=== PATIENT | female | born 1955 | race American Indian/Alaskan Native ===

== ENCOUNTER 2019-05-12 05:51 | Day surgery (SDC) | payer MEDICARE ==
[2019-05-12] MEDS ORDERED: ceFAZolin/Water 2 GM/20 ML 2 GM/20 ML SYRINGE IV NR (06:00)
[2019-05-12] MEDS ORDERED: BACTERIOSTATIC SODIUM CHLORIDE 0.9% 30 ML VIAL INFILTRATI ONE (06:26)
[2019-05-12 07:12] LABS: Basophils # (Auto) 0.1 K/mm3 (0.0-0.1); Basophils % (Auto) 0.8 % (0.0-1.8); Eosinophils # (Auto) 0.3 K/mm3 (0.0-0.4); Eosinophils % (Auto) 4.2 % (0.0-4.3); Hematocrit 28.4 % (30.3-42.9); Hemoglobin 9.1 gm/dl (10.1-14.3); Lymphocytes # (Auto) 1.7 K/mm3 (1.2-5.4); Lymphocytes % (Auto) 22.8 % (13.4-35.0); Mean Corpuscular HGB Conc 32 % (30-34); Mean Corpuscular Volume 83 fl (79-97); Monocytes # (Auto) 0.5 K/mm3 (0.0-0.8); Monocytes % (Auto) 7.5 % (0.0-7.3); Platelet Count 291 K/mm3 (140-440); Red Blood Count 3.42 M/mm3 (3.65-5.03); Red Cell Distribution Width 14.2 % (13.2-15.2)
[2019-05-12] MEDS ORDERED: MIDAZOLAM 2 MG/2 ML INJ IV NR (07:17)
[2019-05-12] MEDS ORDERED: FAMOTIDINE 20 MG/2 ML INJ IV NR (07:18)
[2019-05-12 07:20] LABS: Calcium 9.6 mg/dL (8.4-10.2)
[2019-05-12] MEDS ORDERED: INSULIN REGULAR, HUMAN 100 UNITS/1 ML IV SCH (07:21)
--- NOTE | 2019-05-12 07:28 | Anesthesia Consultation ---
Anesthesia Consult and Med Hx Date of service: 05/12/19 - Airway Anesthetic Teeth Evaluation: Poor (multiple missing teeth, careous #4) ROM Head & Neck: Adequate Mental/Hyoid Distance: Adequate Mallampati Class: Class II Intubation Access Assessment: Probably Good - Pre-Operative Health Status ASA Pre-Surgery Classification: ASA3 Proposed Anesthetic Plan: General - Cardiovascular System Hx Hypertension: Yes - Central Nervous System Hx Neuromuscular Disorder: Yes (peripheral neuropathy) Hx Back Pain: Yes Hx Psychiatric Problems: No - Endocrine Hx Renal Disease: Yes Hx End Stage Renal Disease: Yes Hx Insulin Dependent Diabetes: Yes - Hematic Hx Anemia: Yes - Other Systems Hx Cancer: No Hx Obesity: Yes (BMI 30.5)
[2019-05-12] MEDS ORDERED: SODIUM CHLORIDE 0.9% 1000 ML 1,000 ML IV SCH (07:30)
--- NOTE | 2019-05-12 07:30 | Anesthesia Day of Surgery ---
Anesthesia Day of Surgery - Day of Surgery Patient Examined: Yes Patient H&P Reviewed: Yes Patient is NPO: Yes Beta Blockers: Yes
[2019-05-12] MEDS ORDERED: fentaNYL 100 MCG/2 ML INJ ONE (07:40)
[2019-05-12] MEDS ORDERED: SODIUM CHLORIDE 0.9% 200 ML ONE (07:40)
[2019-05-12] MEDS ORDERED: LIDOCAINE MPF (2%) 20 MG/1 ML VIAL 5 ML ONE (07:40)
[2019-05-12] MEDS ORDERED: HEPARIN 10,000 UNITS/10 ML VIAL ONE (07:40)
[2019-05-12] MEDS ORDERED: MIDAZOLAM 2 MG/2 ML INJ ONE (07:40)
[2019-05-12] MEDS ORDERED: propofoL 200 MG/20 ML VIAL IV ONE (07:41)
[2019-05-12] MEDS ORDERED: GELATIN SPONGE SIZE 100 TP ONE ×2 (07:41→08:42)
[2019-05-12] MEDS ORDERED: THROMBIN (RECOMBINANT) 5,000 UNIT VIAL TP ONE ×2 (07:41→08:41)
[2019-05-12] MEDS ORDERED: PROTAMINE SULFATE 50 MG/5 ML INJ ONE (07:41)
[2019-05-12] MEDS ORDERED: ePHEDrine SULFATE 50 MG/1 ML INJ ONE (08:19)
[2019-05-12] MEDS ORDERED: PHENYLEPHRINE/NS 1,000 MCG/10 ML SYRINGE (OR USE) IV ONE (08:24)
[2019-05-12] MEDS ORDERED: HEPARIN 10,000 UNITS/10 ML VIAL IR ONE (08:40)
[2019-05-12] MEDS ORDERED: SODIUM CHLORIDE 0.9% 100 ML IVPB IV ONE (08:40)
[2019-05-12] MEDS ORDERED: SODIUM CHLORIDE 0.9% IRR 1,500 ML BOTTLE IR ONE (08:42)
[2019-05-12] MEDS ORDERED: PROTAMINE SULFATE 50 MG/5 ML INJ IV ONE (09:40)
[2019-05-12] MEDS ORDERED: ONDANSETRON 4 MG/2 ML INJ ONE (10:05)
[2019-05-12] MEDS ORDERED: oxyCODONE /ACETAMINOPHEN 5-325MG TAB PO PRN (10:06)
--- NOTE | 2019-05-12 10:06 | Post Operative Note ---
Pre-op diagnosis: Stage V Chronic Kidney Disease Post-op diagnosis: same Procedure: Left Arm AV Graft Insertion Anesthesia: GETA Surgeon: JAMEL HAIR Estimated blood loss: other (25ml) Pathology: none Condition: stable Disposition: PACU
--- NOTE | 2019-05-12 10:09 | Short Stay Summary ---
Short Stay Documentation Date of service: 05/12/19 - History H&P: obtained from office Past Medical History: diabetes, ESRD, hyperthyroidism - Allergies and Medications Current Medications: Allergies No Known Allergies Allergy (Unverified 05/10/19 15:33) Home Medications Medication Instructions Recorded Confirmed Last Taken Type Aspirin [Adult Aspirin] 81 mg PO DAILY 05/10/19 05/10/19 05/11/19 History Cyanocobalamin (Vitamin B-12) 2,500 mcg PO DAILY 05/10/19 05/10/19 05/11/19 History [Vitamin B12] Ferrous Sulfate [Feosol 325 MG tab] 325 mg PO DAILY 05/10/19 05/10/19 05/11/19 History Gabapentin 100 mg PO TID 05/10/19 05/10/19 05/11/19 History Insulin Aspart (Nf) [NovoLOG 100 10 unit SQ TIDAC 05/10/19 05/10/19 05/11/19 History UNITS/ML VIAL] Insulin Glargine [Lantus VIAL] 36 unit SQ QAM 05/10/19 05/10/19 05/11/19 History Tizanidine HCl [Tizanidine 2mg tab] 2 mg PO DAILY 05/10/19 05/10/19 05/11/19 History Torsemide [Demadex] 20 mg PO BID 05/10/19 05/10/19 05/11/19 History amLODIPine 10 mg PO BID 05/10/19 05/10/19 05/12/19 04:30 History calcitrioL [Rocaltrol] 0.5 mcg PO DAILY 05/10/19 05/10/19 05/11/19 History carvediloL [Coreg] 12.5 mg PO BID 05/10/19 05/10/19 05/12/19 04:30 History Active Medications Famotidine (Pepcid) 20 mg IV PREOP NR Stop: 05/12/19 16:00 Last Admin: 05/12/19 07:36 Dose: 20 mg Documented by: Cefazolin Sodium (Ancef/Sterile Water 2 Gm/20 Ml) 2 gm in 20 mls @ 80 mls/hr IV PREOP NR; Protocol Stop: 05/12/19 23:59 Sodium Chloride (Nacl 0.9% 1000 Ml) 1,000 mls @ 42 mls/hr IV DIRECT LUIS M Last Admin: 05/12/19 07:30 Dose: 42 mls/hr Documented by: Insulin Human Regular (Humulin R) 4 units IV ONCE LUIS M Stop: 05/12/19 23:59 Last Admin: 05/12/19 07:30 Dose: 4 units Documented by: Midazolam HCl (Versed) 2 mg IV ONCE NR Stop: 05/12/19 16:00 Last Admin: 05/12/19 07:32 Dose: 2 mg Documented by: - Physical exam General appearance: no acute distress Lungs: Normal air movement Heart: Regular rate Extremities: no ischemia - Hospital course Hospital course: the patient was taken to the operating room and had a left arm av graft insertion performed. please refer to the operative note concerning details of the procedure. the patient tolerated the procedure well and was discharged home in stable condition. - Disposition Condition at discharge: Stable Disposition: DC-01 TO HOME OR SELFCARE - Discharge Diagnoses (1) CKD (chronic kidney disease) stage 5, GFR less than 15 ml/min Status: Acute Short Stay Discharge Plan Follow up with: GABY WILSON [Primary Care Provider] - 7 Days
[2019-05-12] MEDS ORDERED: fentaNYL 100 MCG/2 ML INJ IV PRN (10:18)
--- NOTE | 2019-05-12 10:29 | Operative Report ---
STAFF SURGEON: Dr. Wesly Walsh. PREOPERATIVE DIAGNOSIS: Stage V chronic kidney disease. POSTOPERATIVE DIAGNOSIS: Stage V chronic kidney disease. PROCEDURE PERFORMED: Left arm AV graft insertion. COMPLICATIONS: None. ESTIMATED BLOOD LOSS: 25 mL. ANESTHESIA: General. INDICATIONS FOR PROCEDURE: This is a 63-year-old female with worsening renal function and impending need for dialysis and therefore, a vascular consultation was obtained for access creation. The patient was explained the risks, benefits and alternatives to the procedure, expressed understanding and wished to proceed. DESCRIPTION OF PROCEDURE: After appropriate consent was obtained, the patient was brought back to the operating room and placed on the operating table in supine position with the left arm extended. The patient was given appropriate medication for general anesthesia, had LMA placed without difficulty. The left arm was prepped and draped in sterile fashion with ChloraPrep. Appropriate preoperative antibiotics were administered. Appropriate timeout was performed indicating correct patient, procedure, and site of procedure. We then began the operation by making a longitudinal incision in the antecubital fossa. This was carried through the subcutaneous tissue with a combination of blunt dissection and electrocautery. Dissection was continued through the bicipital aponeurosis, which allowed us to expose the brachial artery, which was found to be suitable in size for arterial inflow and this was mobilized for appropriate distance both proximally and distally. We then proceeded to make a transverse incision near the axilla. This was carried through subcutaneous tissue with a combination of blunt dissection and electrocautery. Dissection was continued through the fascia overlying the axillary neurovascular bundle. Axillary vein was identified and found to be suitable in size for venous outflow. We then proceeded to create a subcutaneous tunnel between the 2 incision sites bringing through a 4-7 mm Propaten graft. The patient was given 5000 units of unfractionated heparin. After appropriate timeout elapsed, the graft was appropriately spatulated. Vascular clamps were placed on the brachial artery, both proximally and distally. Longitudinal arteriotomy was made, which was extended with Tyson scissors. Then, an end-to-side anastomosis was performed with a running 6-0 Prolene suture. Once complete, flow was established through the graft with a nice pulsatile flow. The graft was cut to an appropriate length. Vascular clamps were then placed on the axillary vein, both proximally and distally. The graft was spatulated. A longitudinal venotomy was performed with a #11 blade and extended with Tyson scissors and then end-to-side anastomosis was performed with a running 5-0 Prolene suture. Once complete, flow was reestablished through the graft with a nice palpable thrill. We then looked to obtain hemostasis along the suture line, which was obtained with hemostatic agents. Once we were satisfied with hemostasis, we then proceeded to close both wounds with a deep subcutaneous layer with interrupted 3-0 PDS and the skin was approximated with ami. Appropriate dressing was placed. The patient tolerated the procedure well, emerged from the general anesthesia, had the LMA removed, and was sent to recovery in stable condition. All the sponges, instrument and needle counts were correct at completion of the operation. JOB# [id number] RABIA/CESAR
[2019-05-12 11:14] VITALS: BP 119/60
[2019-05-12] MEDS ORDERED: oxyCODONE /ACETAMINOPHEN 5-325MG TAB PO ONE (11:31)
--- NOTE | 2019-05-12 18:13 | Post Anesthesia Evaluation ---
- Post Anesthesia Evaluation Patient Participated: Yes Airway Patent: Yes Stable Respiratory Function: Yes Nausea/Vomiting: No Temp > 96.8F: Yes Pain Manageable: Yes Adequeate Hydration: Yes Anesthesia Complications: No Block Receding Appropriately: Not Applicable Patient on Ventilator: No
== END 2019-05-12 11:51 | disposition home or self-care (01) ==
LOC: OR 05:51 → EDBD 08:00 → OR 11:51
PROVIDERS: ATTEND Surgery Vascular Surgery
DX: I13.2 Hypertensive heart and chronic kidney disease with heart failure and with stage 5 chronic kidney disease, or end stage renal disease (principal); E11.22 Type 2 diabetes mellitus with diabetic chronic kidney disease; N18.6 End stage renal disease; I50.9 Heart failure, unspecified; Z98.41 Cataract extraction status, right eye; Z98.42 Cataract extraction status, left eye; K21.9 Gastro-esophageal reflux disease without esophagitis; E66.9 Obesity, unspecified; Z99.2 Dependence on renal dialysis; Z68.30 Body mass index [BMI] 30.0-30.9, adult; D64.9 Anemia, unspecified; Z98.890 Other specified postprocedural states; Z79.82 Long term (current) use of aspirin; Z79.4 Long term (current) use of insulin; Z79.899 Other long term (current) drug therapy
CPT/HCPCS: 36415; 36830; 80048; 82962; 85025; A4649; C1768; J0690; J1644; J2250; J2370; J2405; J2704; J2720; J3010; J7030; J1815

== ENCOUNTER 2019-05-15 07:23 | Inpatient (IN) | payer MEDICARE ==
[2019-05-15] MEDS ORDERED: VANCOMYCIN 1,750 MG in SODIUM CHLORIDE 0.9% 500 ML 500 ML IV ONE (07:53)
--- NOTE | 2019-05-15 07:53 | Emergency Department Report ---
ED Fever HPI - General Stated Complaint: FEVER/DRAINAGE Time Seen by Provider: 05/15/19 07:48 Source: patient Exam Limitations: no limitations - History of Present Illness Initial Comments: cc: fever HPI Mrs. Davis is a 63 yo female with hx of ESRD DM hyperthyroidism CHF who presents with fever malaise and drainage from surgical wound. She is 3 days s/p surgery on Wednesday. She had left arm AV graft inserted by Dr. Walsh. She now presents with home fever 102 F. She feels just unwell. Arrives per EMS. Denies fever cough. Denies travel. Spoke to daughter per phone , Yesenia. Patient was responsive, talking to paramedics. Daughter notices brown drainage from wound. Yesenia. Patient has been taking percocet but did not take any medication today. She is followed by [facility]. Also spoke with son Shahid Davis . He stated that his mother has had declining health over the last 2 years. She just hasn't been herself. Dr. Emily Rausch bottle capper I spoke with [facility] PCP Dr. Schroeder Timing/Duration: just prior to arrival Fever Severity/Quality: greater than 102 F Associated Symptoms: weakness, other (Generalized malaise) ED Review of Systems ROS: Stated complaint: FEVER/DRAINAGE Other details as noted in HPI Comment: All other systems reviewed and negative Constitutional: fever, malaise Respiratory: denies: cough, shortness of breath Cardiovascular: denies: chest pain Gastrointestinal: denies: abdominal pain, nausea, vomiting ED Past Medical Hx - Past Medical History Previous Medical History?: Yes Hx Hypertension: Yes Hx Congestive Heart Failure: Yes Hx Diabetes: Yes Hx GERD: Yes Hx Renal Disease: Yes - Social History Smoking Status: Never Smoker - Medications Home Medications: Home Medications Medication Instructions Recorded Confirmed Last Taken Type Aspirin [Adult Aspirin] 81 mg PO DAILY 05/10/19 05/10/19 05/11/19 History Cyanocobalamin (Vitamin B-12) 2,500 mcg PO DAILY 05/10/19 05/10/19 05/11/19 History [Vitamin B12] Ferrous Sulfate [Feosol 325 MG tab] 325 mg PO DAILY 05/10/19 05/10/19 05/11/19 H istory Gabapentin 100 mg PO TID 05/10/19 05/10/1905/10/20 History Insulin Aspart (Nf) [NovoLOG 100 10 unit SQ TIDAC 05/10/19 05/10/19 05/11/19 History UNITS/ML VIAL] Insulin Glargine [Lantus VIAL] 36 unit SQ QAM 05/10/19 05/10/19 05/11/19 History Tizanidine HCl [Tizanidine 2mg tab] 2 mg PO DAILY 05/10/19 05/10/19 05/11/19 History Torsemide [Demadex] 20 mg PO BID 05/10/19 05/10/19 05/11/19 History amLODIPine 10 mg PO BID 05/10/19 05/10/19 05/12/19 04:30 History calcitrioL [Rocaltrol] 0.5 mcg PO DAILY 05/10/19 05/10/19 05/11/19 History carvediloL [Coreg] 12.5 mg PO BID 05/10/19 05/10/19 05/12/19 04:30 History oxyCODONE /ACETAMINOPHEN [Percocet 1 tab PO Q6HR PRN #24 tablet 05/12/19 Unknown Rx 5/325 mg] ED Physical Exam - General General appearance: alert, in no apparent distress, other (Appears uncomfortable) - Head Head exam: Present: atraumatic, normocephalic - Eye Eye exam: Present: normal appearance - ENT ENT exam: Present: mucous membranes moist - Neck Neck exam: Present: normal inspection, full ROM - Respiratory Respiratory exam: Present: normal lung sounds bilaterally. Absent: respiratory distress, wheezes, rales, rhonchi - Cardiovascular Cardiovascular Exam: Present: regular rate, normal rhythm, normal heart sounds. Absent: systolic murmur, diastolic murmur, rubs, gallop - GI/Abdominal GI/Abdominal exam: Present: soft, normal bowel sounds. Absent: distended, tenderness, guarding, rebound - Extremities Exam Extremities exam: Present: other (Left upper extremity minimal edema no erythema no induration no purulence ami intact no dehiscence) - Back Exam Back exam: Present: normal inspection - Neurological Exam Neurological exam: Present: alert, oriented X3 - Psychiatric Psychiatric exam: Present: normal affect, normal mood - Skin Skin exam: Present: warm, dry, intact, normal color. Absent: rash ED Course Vital Signs 05/15/19 05/15/19 05/15/19 08:30 08:45 09:00 Pulse Rate 107 H 110 H 104 H Respiratory 26 H 20 20 Rate Blood Pressure 173/84 158/75 O2 Sat by Pulse 100 100 99 Oximetry 05/15/19 05/15/19 05/15/19 09:14 09:15 09:30 Pulse Rate 99 H 100 H 97 H Respiratory 20 20 Rate Blood Pressure 158/72 158/72 148/69 O2 Sat by Pulse 99 99 100 Oximetry 05/15/19 05/15/19 05/15/19 09:45 10:00 10:15 Pulse Rate 98 H 96 H 96 H Respiratory 20 20 20 Rate Blood Pressure 160/73 159/75 159/72 O2 Sat by Pulse 100 100 100 Oximetry 05/15/19 05/15/19 05/15/19 10:30 11:16 11:30 Pulse Rate 97 H Respiratory 14 Rate Blood Pressure 158/74 158/74 158/74 O2 Sat by Pulse 100 98 100 Oximetry 05/15/19 05/15/19 11:46 12:00 Pulse Rate 95 H 88 Respiratory 14 20 Rate Blood Pressure 141/58 127/72 O2 Sat by Pulse 100 100 Oximetry - Reevaluation(s) Reevaluation #1: 05/15/19 08:37 At the patient was placed in the treatment area I reassessed her for a full history and physical. She was unresponsive. She was gurgling at the mouth. Nurse perform stat Accu-Chek. Blood glucose 344. Agonal respirations. We immediately transferred to critical care room. Called respiratory therapist. RSI performed. Patient is hypertensive and tachycardic. Completely unresponsive to noxious or verbal stimuli. 05/15/19 08:40 - Intubation Time Out Performed: Yes Sedative: Etomidate Paralytic: Rocuronium Laryngoscope: fiberoptic video scope Size: 4 ET Tube Size: 7.5 Tube Secured Depth (cm): 22 Tube Secured Location: lips Tube Placement Confirmation: visualized tube passing t, equal breath sounds bilat, no breath sounds over epi, confirmation by capnometr Patient Tolerated Procedure: well Intubation Complications: none ED Medical Decision Making - Lab Data Result diagrams: 05/15/19 09:11 05/15/19 08:07 Laboratory Results - last 24 hr 05/15/19 05/15/1905/14/20 08:07 08:07 08:31 WBC RBC Hgb Hct MCV MCH MCHC RDW Plt Count Lymph % (Auto) [place] % (Auto) Eos % (Auto) Baso % (Auto) Lymph # [place] # Eos # Baso # Seg Neutrophils % Seg Neutrophils # ABG pH ABG pCO2 ABG pO2 ABG HCO3 ABG O2 Saturation ABG O2 Content ABG Base Excess ABG Hemoglobin ABG Carboxyhemoglobin ABG Methemoglobin Oxyhemoglobin FiO2 Sodium 136 L Potassium 4.1 Chloride 99.1 Carbon Dioxide 15 L D Anion Gap 26 BUN 74 H Creatinine 5.8 H Estimated GFR 9 BUN/Creatinine Ratio 13 Glucose 267 H POC Glucose 344 H Lactic Acid 2.00 Calcium 9.0 Total Bilirubin 0.20 AST 14 ALT < 5 L Alkaline Phosphatase 60 Total Protein 8.0 Albumin 3.2 L Albumin/Globulin Ratio 0.7 05/15/19 05/15/19 09:11 09:30 WBC 11.9 H RBC 3.41 L Hgb 9.3 L Hct 30.1 L MCV 88 MCH 27 L MCHC 31 RDW 14.4 Plt Count 217 Lymph % (Auto) Director Of [employer] [place] % (Auto) Director Of Employee Development Eos % (Auto) Director Of Employee Development Baso % (Auto) Director Of Employee Development Lymph # Director Of Employee Development [place] # Director Of Employee Development Eos # Director Of Employee Development Baso # Director Of Employee Development Seg Neutrophils % Director Of Employee Development Seg Neutrophils # Director Of Employee Development ABG pH 7.389 ABG pCO2 37.0 ABG pO2 82.0 ABG HCO3 21.9 ABG O2 Saturation 97.0 ABG O2 Content 11.0 ABG Base Excess -2.8 L ABG Hemoglobin 8.2 L ABG Carboxyhemoglobin 1.9 ABG Methemoglobin 0.5 Oxyhemoglobin 94.6 L FiO2 50 Sodium Potassium Chloride Carbon Dioxide Anion Gap BUN Creatinine Estimated GFR BUN/Creatinine Ratio Glucose POC Glucose Lactic Acid Calcium Total Bilirubin AST ALT Alkaline Phosphatase Total Protein Albumin Albumin/Globulin Ratio - EKG Data 05/15/19 13:00 EKG obtained 1245 Normal sinus rhythm rate 90 bpm normal axis normal intervals nonspecific T wave pattern no ST elevation - Radiology Data Radiology results: report reviewed CT chest diffuse bilateral ground glass opacity nonspecific but favored to be related to pulmonary edema, diffuse infectious or inflammatory process also possible bilateral small pleural effusions CT head no acute intracranial abnormality, periventricular deep white matter lucency microvascular ischemic changes greater than expected for age, mild mucosal thickening within several ethmoid cells CT abdomen pelvis: No acute findings according to radiology report - Medical Decision Making Mrs. Davis presents with postoperative fever 3 days status post left upper extremity AV graft insertion. Approximately 1 hour during ED course, patient became unresponsive to voice and noxious stimuli. Patient was gurgling foaming at the mouth. Agonal respirations. Required emergent intubation. Differential diagnosis considering postoperative fever and AMS dec LOS: CVA caused by septic emboli, ICH, seizure? post-ictal state Patient treated with cefepime vancomycin. Source of fever wound infection, healthcare associated pneumonia, COVID 19 Fortunately after 3 hours of ventilatory support, patient is now alert awake. According to nurse she was following commands and attempting to communicate. Seizure is a consideration. Polypharmacy does not appear to be an issue but must be a consideration. Additional consideration hypoxemia/hypercapnia PUI COVID 19 survey filled out through [facility] online portal CT chest reveals pulmonary edema versus infectious process I have consulted vascular surgeon Dr. Terry Lee who agreed to evaluate patient. I have consulted bottle capper Dr. Lange who recommended furosemide Admitted to CCU to hospitalist service. Critical care attestation.: If time is entered above; I have spent that time in minutes in the direct care of this critically ill patient, excluding procedure time. 40 minutes of critical care time excluding procedures were used in the care of the patient. I reviewed electronic record. I discussed treatment plan with the nursing team members at the bedside. I came immediately to the bedside. I kept the family members informed. I spoke with son daughter and here in person. Patient required multiple interventions and reassessments. ED Disposition Clinical Impression: Postoperative fever, Altered mental status, Acute respiratory failure, Pulmonary edema Disposition: OP ADMIT IP TO THIS HOSP Is pt being admited?: No Does the pt Need Aspirin: No Condition: Serious Referrals: PRIMARY CARE, [Primary Care Provider] - 3-5 Days
[2019-05-15] MEDS ORDERED: CEFEPIME/NS 2 GM/100 ML 2 GM/100 ML BAG IV SCH (08:00)
[2019-05-15] MEDS ORDERED: VANCOMYCIN PHARMACY TO DOSE IV SCH (08:00)
[2019-05-15 08:47] LABS: Albumin 3.2 g/dL (3.9-5); BUN/Creatinine Ratio 13; Blood Urea Nitrogen 74 mg/dL (7-17); Hemolysis Index 26
[2019-05-15 08:50] LABS: Alanine Aminotransferase < 5 units/L (7-56)
[2019-05-15 09:39] LABS: Hematocrit 30.1 % (30.3-42.9); Hemoglobin 9.3 gm/dl (10.1-14.3); Mean Corpuscular HGB Conc 31 % (30-34); Mean Corpuscular Volume 88 fl (79-97); Platelet Count 217 K/mm3 (140-440); Red Blood Count 3.41 M/mm3 (3.65-5.03); Red Cell Distribution Width 14.4 % (13.2-15.2)
[2019-05-15 09:42] LABS: ABG Base Excess -2.8 mmol/L (-2.0-3.0); ABG HCO3 21.9 mmol/L (20.0-26.0); ABG Methemoglobin 0.5 % (0.0-1.5); ABG PH 7.389 pH Units (7.350-7.450)
[2019-05-15] MEDS ORDERED: MINERAL OIL/PETROLATUM, WHITE OPHTH OINT 3.5 GM OU PRN (09:48)
[2019-05-15] MEDS ORDERED: LIP THERAPY VASELINE TP PRN (09:48)
[2019-05-15] MEDS: CEFEPIME/NS 1 GM/100 ML 1 GM/100 ML BAG IV SCH ×2 (10:00→21:56)
--- NOTE | 2019-05-15 10:02 | XRay Report ---
CHEST 1 VIEW INDICATION: Postoperative fever. COMPARISON: None FINDINGS: Support devices: Endotracheal tube terminates 3.5 cm superior to the carla. Nasogastric tube transve rses the esophagus although its distal tip is not included Heart: Borderline to mild cardiomegaly. Lungs/Pleura: Mild bilateral lung opacities are identified most consistent with congestive changes. T he left lower lobe is obscured by heart size and probable left pleural effusion. No pneumothorax. Additional findings: None. IMPRESSION: Findings are most consistent with mild volume overload or CHF. There is poor visualization of the le ft lower lobe. Left lower lobe infiltrate is difficult to exclude. Signer Name: John Castro Jr, MD Signed: 05/15/2019 9:58 AM Workstation Name: [id number]
--- NOTE | 2019-05-15 11:50 | Cat Scan Report ---
CT HEAD WITHOUT CONTRAST INDICATION / CLINICAL INFORMATION: Febrile illness. Postoperative patient.. Altered mental status. Respiratory failure. Ventilator depen dent patient. TECHNIQUE: All CT scans at this location are performed using CT dose reduction for ALARA by means of automated e xposure control. COMPARISON: None available. FINDINGS: HEMORRHAGE: No evidence of intracranial hemorrhage or extra-axial fluid collection. EXTRA-AXIAL SPACES: Cortical sulci, sylvian fissures and basilar cisterns have an unremarkable appear ance. VENTRICULAR SYSTEM: The ventricular system is of normal size and configuration. CEREBRAL PARENCHYMA: Periventricular and deep white matter lucency is noted. This is likely a reflect ion of moderate microvascular ischemic changes which are in excess of those expected for the patient' s age of 63 years. MIDLINE SHIFT OR HERNIATION: There is no mass effect. CEREBELLUM / BRAINSTEM: Brainstem and cerebellum have an unremarkable appearance. INTRACRANIAL VESSELS:Mildly calcified atherosclerotic plaque is present along the course of the mandi nous segments of both internal carotid arteries. ORBITS: Status post bilateral cataract surgery. No additional abnormality. SOFT TISSUES of HEAD: No significant abnormality. CALVARIUM: Evaluation of bone windows reveals no abnormalities. PARANASAL SINUSES / MASTOID AIR CELLS: Mucosal thickening is present within ethmoid air cells bilater ally. ADDITIONAL FINDINGS: None. IMPRESSION: 1. No acute intracranial abnormality. 2. Periventricular and deep white matter lucency likely reflects microvascular ischemic change which is greater than expected for age 63 years. 3. Mild mucosal thickening within several ethmoid air cells bilaterally. Signer Name: Zafar Gonzalez MD Signed: 05/15/2019 11:45 AM Workstation Name: [id number]
--- NOTE | 2019-05-15 12:11 | Cat Scan Report ---
CT chest without contrast Clinical information: Postoperative fever. Technical: Multiple axial CT images of the chest were acquired without intravenous contrast. Sagittal and coronal reformats were obtained. All CTs at this facility utilized dose reduction techniques inc luding automated exposure control, iterative reconstruction and weight based dosing when appropriate to reduce patient radiation dose to as low as reasonably achievable. Comparison: Chest radiograph, 05/15/2019 Findings: Endotracheal tube is present with tip approximately 3 cm above the level of the carla. An esophagoga stric tube is also present with distal end residing in the stomach. Evaluation is somewhat limited without intravenous contrast. The heart is mildly enlarged. Evaluation of the lung parenchyma demonstrates diffuse bilateral groundglass opacities with small bilateral ple ural effusions and associated atelectasis. There is a more focal region of consolidation within the l eft lower lobe. Limited imaging of the upper abdomen shows no evidence of acute abnormality. Evaluation of bony structures demonstrates no evidence of acute bony abnormality. Evaluation of soft tissue structures demonstrates surgical ami within the visualized left upper arm. Impression: 1. Diffuse bilateral groundglass opacities which are nonspecific but favored to be related to pulmona ry edema. A diffuse infectious or inflammatory process could have a similar appearance. 2. Small bilateral pleural effusions with associated atelectasis. The more focal region of consolidat ion in the left lower lobe is also favored to be related to atelectasis, although focal airspace dise ase could have a similar appearance. Signer Name: Anamaria Fagan MD Signed: 05/15/2019 12:07 PM Workstation Name: [id number]
--- NOTE | 2019-05-15 12:18 | Cat Scan Report ---
CT ABDOMEN AND PELVIS WITHOUT CONTRAST INDICATION: Postoperative fever. TECHNICAL: Multiple axial CT images of the abdomen and pelvis were acquired without intravenous contr ast. Sagittal and coronal reformats were obtained. All CTs at this facility utilize dose reduction techniques including automated exposure control, iterative reconstruction and weight based dosing whe n appropriate to reduce patient radiation dose to as low as reasonable achievable. COMPARISON: No prior abdominal imaging is available for comparison. FINDINGS: Limited imaging of the bilateral lung bases demonstrates small bilateral pleural effusions with assoc iated atelectasis. There is a more focal area of consolidation within the visualized left lung base. Scattered bilateral groundglass opacities are also noted. Abdomen: Evaluation of the abdomen is limited without intravenous contrast. An esophagogastric tube i s present with distal tip residing in the mid stomach. Within the limitations of today's noncontrast study, the liver, gallbladder, spleen, pancreas, bilateral adrenal glands and bilateral kidneys show no evidence of acute abnormality. There is diffuse atherosclerotic calcification along the abdominal aorta without evidence for aneurysm. There is no evidence of bowel obstruction or free fluid. The fredi endix is visualized and appears normal. There is a fat-containing ventral hernia. Pelvis: No free fluid is seen within the pelvis. The urinary bladder appears normal. Bones and Soft Tissues: Evaluation of bony structures shows no evidence of acute bony abnormality. E valuation of soft tissue structures demonstrates suspected mild anasarca within the bilateral flanks. IMPRESSION: 1. No evidence of focal inflammatory change within the abdomen or pelvis. 2. Bibasilar groundglass opacities, small bilateral pleural effusions with atelectasis. Please see CT of the chest report performed the same day. 3. Suggestion of mild anasarca indicating a volume overloaded state. Signer Name: Anamaria Fagan MD Signed: 05/15/2019 12:13 PM Workstation Name: [id number]
[2019-05-15 12:20] LABS: Bilirubin,Urine NEG (Negative); Blood,Urine SM (Negative); Color,Urine Straw (Yellow); Mucus,Urine FEW /HPF; Urobilinogen,Urine < 2.0 mg/dL (<2.0)
[2019-05-15] MEDS ORDERED: FUROSEMIDE 40 MG/4 ML INJ IV ONE (12:57)
[2019-05-15] MEDS ORDERED: FUROSEMIDE 100 MG/10 ML INJ IV ONE (14:36)
--- NOTE | 2019-05-15 16:32 | Event Note ---
Date: 05/15/19 63-year-old female with end-stage renal disease with recent AV graft placement [address] Walsh who presents with fever, respiratory issues, and some possible drainage from the left upper extremity. She quickly deteriorated and required intubation. Differential is infectious process such as COVID 19 versus pulmonary edema. I ordered a ultrasound of the left upper extremity dialysis access. Blood cultures have been obtained. Recommend broad-spectrum antibiotics. We will fully evaluate the patient tomorrow. Patient needs medical optimization before any procedure can even be considered.
--- NOTE | 2019-05-15 17:26 | Consultation ---
History of Present Illness - Reason for Consult Consult date: 05/15/19 acute renal failure, chronic renal failure Requesting physician: MICKY JENNINGS - History of Present Illness This is a 63 yo F with past medical history of Hypertension, hyperthyroidism, CHF, T2DM complicated by diabetic neuropathy, retinopathy, nephropathy, CKD stage 5 not on HD yet, s/p recent LUE AVF placement last Wednesday, who now is BIBEMS with complaints of fever, reportedly > 102F, without cough. As per pt's daughter, she noticed brown drainage from the surgical wound, no recent travel or sick contacts reported. As per family patient.s health has been declining gradually over the past 2 years. Pt's primary air bag buffer is Dr Deb Weir, who does not have privileges at [facility]. CXR showed evidence of CHF, CT chest showed diffuse bilateral ground glass opacities. labs showed elevated proBNP > 7000, lactic acid of 3.5, elevated BUN/Cr at 74/5.8mg/dl for which renal consult is requested. baseline renal function unknown. Course was complicated by progressive respiratory failure with hypoxia requiring intubation. Pt seen and examined in ER, awaiting transfer to the ICU Past History Past Medical History: diabetes, hypertension, renal failure Past Surgical History: Other (AVF placement ) Social history: no significant social history Family history: no significant family history Medications and Allergies Allergies Allergy/AdvReac Type Severity Reaction Status Date / Time No Known Allergies Allergy Unverified 05/10/19 15:33 Home Medications Medication Instructions Recorded Confirmed Last Taken Type Aspirin [Adult Aspirin] 81 mg PO DAILY 05/10/19 05/10/19 05/11/19 History Cyanocobalamin (Vitamin B-12) 2,500 mcg PO DAILY 05/10/19 05/10/19 05/11/19 History [Vitamin B12] Ferrous Sulfate [Feosol 325 MG tab] 325 mg PO DAILY 05/10/19 05/10/19 05/11/19 History Gabapentin 100 mg PO TID 05/10/19 05/10/19 05/11/19 History Insulin Aspart (Nf) [NovoLOG 100 10 unit SQ TIDAC 05/10/19 05/10/19 05/11/19 History UNITS/ML VIAL] Insulin Glargine [Lantus VIAL] 36 unit SQ QAM 05/10/19 05/10/19 05/11/19 History Tizanidine HCl [Tizanidine 2mg tab] 2 mg PO DAILY 05/10/19 05/10/19 05/11/19 History Torsemide [Demadex] 20 mg PO BID 05/10/19 05/10/19 05/11/19 History amLODIPine 10 mg PO BID 05/10/19 05/10/19 05/12/19 04:30 History calcitrioL [Rocaltrol] 0.5 mcg PO DAILY 05/10/19 05/10/19 05/11/19 History carvediloL [Coreg] 12.5 mg PO BID 05/10/19 05/10/19 05/12/19 04:30 History oxyCODONE /ACETAMINOPHEN [Percocet 1 tab PO Q6HR PRN #24 tablet 05/12/19 Unknown Rx 5/325 mg] Active Meds: Active Medications Hydrophilic Ointment (Vaseline Lip Therapy) 1 applic TP Q2HR PRN PRN Reason: Dry Lips Cefepime HCl (Cefepime/Ns 1 Gm/100 Ml) 1 gm in 100 mls @ 200 mls/hr IV Q12H LUIS M Last Admin: 05/15/19 10:00 Dose: 200 mls/hr Documented by: Propofol (Diprivan 10 Mg/Ml) 1,000 mg in 100 mls @ 2.585 mls/hr IV TITR LUIS M; Protocol Last Titration: 05/15/19 14:26 Dose: 30 mcg/kg/min, 15.513 mls/hr Documented by: Multi-Ingred Cream/Lotion/Oil/Oint (Artificial Tears Ophth Oint) 1 applic OU Q4HR PRN PRN Reason: Dry Eye(s) Review of Systems ROS unobtainable: due to endotracheal tube, due to mental status Exam - Vital Signs Vital signs: Vital Signs Pulse Resp Pulse Ox 107 H 26 H 100 05/15/19 08:30 05/15/19 08:30 05/15/19 08:30 - General Appearance General appearance: well-developed, appears stated age, sedated on ventilator, intubated EENT: ATNC, PERRL, mucous membranes moist Neck: Present: neck supple Respiratory: Rales, Decreased Breath Sounds Heart: regular, S1S2 Gastrointestinal: Present: normoactive bowel sounds Integumentary: no rash Neurologic: other (intubated, sedated ) Results - Lab Results 05/15/19 09:11 05/15/19 08:07 Most recent lab results ABG pH 7.389 pH Units (7.350-7.450) 05/15/19 09:30 ABG pCO2 37.0 mm Hg 05/15/19 09:30 ABG pO2 82.0 mm Hg (80.0-90.0) 05/15/19 09:30 ABG HCO3 21.9 mmol/L (20.0-26.0) 05/15/19 09:30 ABG O2 Saturation 97.0 % (95.0-99.0) 05/15/19 09:30 Calcium 9.0 mg/dL (8.4-10.2) 05/15/19 08:07 Assessment and Plan - Patient Problems (1) Pulmonary edema Current Visit: Yes Status: Acute Plan to address problem: IV lasix 80 given, if no significant response of escalating dose of lasix and pt develops worsening oxgenation will consider renal replacement therapy. (2) CKD (chronic kidney disease) stage 5, GFR less than 15 ml/min Current Visit: No Status: Acute Plan to address problem: pt has history of diabetic nephropathy in the setting of long standing T2DM also complicated by diabetic retinopathy/diabetic neuropathy. Pt was being prepared for future HD, s/p recent LUE AVF placement. Follow vascular surgery recommendations regarding fever, possible drainage from the left upper extremity. No urgent indication for renal replacement at present, however if volume/respiratory status deteriorate despite escalating dose of IV diuresis will consider initiation of HD. Cont supportive care for CKD avoid nephrotoxins, NSAIDS, IV contrast. (3) Acute respiratory failure Current Visit: Yes Status: Acute Plan to address problem: pt is on ventilator support, management as per ICU team (4) Metabolic acidosis Current Visit: Yes Status: Acute Plan to address problem: combined lactic acidosis and hyperchloremic met acidosis secondary to advanced CKD start Na bicarb 1300mg po bid (5) Type 2 diabetes mellitus with diabetic chronic kidney disease Current Visit: Yes Status: Chronic Plan to address problem: DM management as per primary attending (6) Hypertensive chronic kidney disease with stage 5 chronic kidney disease or end stage renal disease Current Visit: Yes Status: Chronic Plan to address problem: monitor BP on current meds
--- NOTE | 2019-05-15 17:48 | Vascular Lab Report ---
VL hemodialysis access INDICATION: EVAL. LUE AVG. TECHNIQUE: Grayscale and duplex Doppler study of the left upper extremity AV graft. COMPARISON: None available. FINDINGS: The volume of flow in the left upper extremity AV graft measures 4390 mL/min. There is no focal occlu samy or stenosis. Signer Name: Davion Franks MD Signed: 05/15/2019 5:44 PM Workstation Name: [id number]
--- NOTE | 2019-05-15 18:28 | History and Physical Report ---
History of Present Illness Date of examination: 05/15/19 Date of admission: 05/15/19 13:51 Chief complaint: Fever for 1 day History of present illness: 63-year-old female who had AV graft placement 3 days ago comes in for fever and drainage from the left upper extremity graft site. Patient was also having wheezing and a temperature 102 degrees for night. Patient was initially responsive talking to the paramedics. There was some brownish discharge from the graft site. When the patient was being reassessed by the ER physician patient was unresponsive and gurgling at the mouth. No witnessed seizures. Patient was in agonal respirations. Because of the agonal respirations to protect the airway patient was intubated. Was completely unresponsive to painful or verbal stimuli. Patient was intubated around 8:40 AM. Her Accu-Chek was [phone]. ED physician felt that the patient may have been postictal and unresponsive. Past Medical History Previous Medical History?: Yes Hypertension: Yes Congestive Heart Failure: Yes Diabetes: Yes GERD: Yes Renal Disease: Yes Surgical history AV graft placement 3 days ago Social History Smoking Status: Never Smoker Family history Htn - Medications Home Medications: Home Medications Medication Instructions Recorded Confirmed Last Taken Type Aspirin [Adult Aspirin] 81 mg PO DAILY 05/10/19 05/10/19 05/11/19 History Cyanocobalamin (Vitamin B-12) 2,500 mcg PO DAILY 05/10/19 05/10/19 05/11/19 History [Vitamin B12] Ferrous Sulfate [Feosol 325 MG tab] 325 mg PO DAILY 05/10/19 05/10/19 05/11/19 History Gabapentin 100 mg PO TID 05/10/19 05/10/19 05/11/19 History Insulin Aspart (Nf) [NovoLOG 100 10 unit SQ TIDAC 05/10/19 05/10/19 05/11/19 History UNITS/ML VIAL] Insulin Glargine [Lantus VIAL] 36 unit SQ QAM 05/10/19 05/10/19 05/11/19 History Tizanidine HCl [Tizanidine 2mg tab] 2 mg PO DAILY 05/10/19 05/10/19 05/11/19 History Torsemide [Demadex] 20 mg PO BID 05/10/19 05/10/19 05/11/19 History amLODIPine 10 mg PO BID 05/10/19 05/10/19 05/12/19 04:30 History calcitrioL [Rocaltrol] 0.5 mcg PO DAILY 05/10/19 05/10/19 05/11/19 History carvediloL [Coreg] 12.5 mg PO BID 05/10/19 05/10/19 05/12/19 04:30 History oxyCODONE /ACETAMINOPHEN [Percocet 1 tab PO Q6HR PRN #24 tablet 05/12/19 Unknown Rx 5/325 mg] Review of Systems ROS: Review of System: Constitutional: no fever, no chills, no weight loss Ears, eyes, nose, mouth and throat: no nasal congestion, no nasal discharge, no sinus pressure, no vision change, no red eye. Neck: No neck pain or rigidity. Cardiovascular: No chest pain, no orthopnea, no palpitations, no leg swelling Respiratory: No shortness of breath, no cough, no congestion, no wheezing Gastrointestinal: no abdominal pain, no nausea, no vomiting Genitourinary : no dysuria, no hematuria Musculoskeletal: no joint swelling or muscle ache Integumentary: no rash, no pruritis Neurological: no parathesias, no numbness, no tingling Endocrine: no cold or heat intolerance, no polyuria or polydipsia Hematologic/Lymphatic: no easy bruising, no easy bleeding, no gland swelling Allergic/Immunologic: no urticaria, no angioedema. Past History Past Medical History: diabetes, hypertension, renal failure Past Surgical History: Other (AVF placement ) Social history: no significant social history Family history: no significant family history Medications and Allergies Allergies Allergy/AdvReac Type Severity Reaction Status Date / Time No Known Allergies Allergy Unverified 05/10/19 15:33 Home Medications Medication Instructions Recorded Confirmed Last Taken Type Aspirin [Adult Aspirin] 81 mg PO DAILY 05/10/19 05/10/19 05/11/19 History Cyanocobalamin (Vitamin B-12) 2,500 mcg PO DAILY 05/10/19 05/10/19 05/11/19 History [Vitamin B12] Ferrous Sulfate [Feosol 325 MG tab] 325 mg PO DAILY 05/10/19 05/10/19 05/11/19 History Gabapentin 100 mg PO TID 05/10/19 05/10/19 05/11/19 History Insulin Aspart (Nf) [NovoLOG 100 10 unit SQ TIDAC 05/10/19 05/10/19 05/11/19 History UNITS/ML VIAL] Insulin Glargine [Lantus VIAL] 36 unit SQ QAM 05/10/19 05/10/19 05/11/19 History Tizanidine HCl [Tizanidine 2mg tab] 2 mg PO DAILY 05/10/19 05/10/19 05/11/19 History Torsemide [Demadex] 20 mg PO BID 05/10/19 05/10/19 05/11/19 History amLODIPine 10 mg PO BID 05/10/19 05/10/19 05/12/19 04:30 History calcitrioL [Rocaltrol] 0.5 mcg PO DAILY 05/10/19 05/10/19 05/11/19 History carvediloL [Coreg] 12.5 mg PO BID 05/10/19 05/10/19 05/12/19 04:30 History oxyCODONE /ACETAMINOPHEN [Percocet 1 tab PO Q6HR PRN #24 tablet 05/12/19 Unknown Rx 5/325 mg] Active Meds: Active Medications Hydrophilic Ointment (Vaseline Lip Therapy) 1 applic TP Q2HR PRN PRN Reason: Dry Lips Cefepime HCl (Cefepime/Ns 1 Gm/100 Ml) 1 gm in 100 mls @ 200 mls/hr IV Q12H LUIS M Last Admin: 05/15/19 10:00 Dose: 200 mls/hr Documented by: Propofol (Diprivan 10 Mg/Ml) 1,000 mg in 100 mls @ 2.585 mls/hr IV TITR LUIS M; Protocol Last Titration: 05/15/19 14:26 Dose: 30 mcg/kg/min, 15.513 mls/hr Documented by: Multi-Ingred Cream/Lotion/Oil/Oint (Artificial Tears Ophth Oint) 1 applic OU Q4HR PRN PRN Reason: Dry Eye(s) Exam - Constitutional Vitals: Temp Pulse Resp BP Pulse Ox 98 H 20 127/72 100 05/15/19 17:14 05/15/19 12:00 05/15/19 12:00 05/15/19 12:00 Results - Labs CBC & Chem 7: 05/15/19 09:11 05/15/19 08:07 Labs: Laboratory Last Values WBC 11.9 K/mm3 (4.5-11.0) H 05/15/19 09:11 RBC 3.41 M/mm3 (3.65-5.03) L 05/15/19 09:11 Hgb 9.3 gm/dl (10.1-14.3) L 05/15/19 09:11 Hct 30.1 % (30.3-42.9) L 05/15/19 09:11 MCV 88 fl (79-97) 05/15/19 09:11 MCH 27 pg (28-32) L 05/15/19 09:11 MCHC 31 % (30-34) 05/15/19 09:11 RDW 14.4 % (13.2-15.2) 05/15/19 09:11 Plt Count 217 K/mm3 (140-440) 05/15/19 09:11 Lymph % (Auto) [employer]way Rep[employer] Supervisor 05/15/19 09:11 Brown % (Auto) [employer] Supervisor 05/15/19 09:11 Eos % (Auto) [employer] Supervisor 05/15/19 09:11 Baso % (Auto) [employer] Supervisor 05/15/19 09:11 Lymph # [employer]visor 05/15/19 09:11 Brown # [employer] Supervisor 05/15/19 09:11 Eos # [employer] Supervisor 05/15/19 09:11 Baso # [employer] Supervisor 05/15/19 09:11 Seg Neutrophils % [employer] Supervisor 05/15/19 09:11 Seg Neutrophils # [employer] Supervisor 05/15/19 09:11 ABG pH 7.389 pH Units (7.350-7.450) 05/15/19 09:30 ABG pCO2 37.0 mm Hg 05/15/19 09:30 ABG pO2 82.0 mm Hg (80.0-90.0) 05/15/19 09:30 ABG HCO3 21.9 mmol/L (20.0-26.0) 05/15/19 09:30 ABG O2 Saturation 97.0 % (95.0-99.0) 05/15/19 09:30 ABG O2 Content 11.0 (0.0-44) 05/15/19 09:30 ABG Base Excess -2.8 mmol/L (-2.0-3.0) L 05/15/19 09:30 ABG Hemoglobin 8.2 gm/dl (12.0-16.0) L 05/15/19 09:30 ABG Carboxyhemoglobin 1.9 % (0.0-5.0) 05/15/19 09:30 ABG Methemoglobin 0.5 % (0.0-1.5) 05/15/19 09:30 Oxyhemoglobin 94.6 % (95.0-99.0) L 05/15/19 09:30 FiO2 50 % 05/15/19 09:30 Sodium 136 mmol/L (137-145) L 05/15/19 08:07 Potassium 4.1 mmol/L (3.6-5.0) 05/15/19 08:07 Chloride 99.1 mmol/L (98-107) 05/15/19 08:07 Carbon Dioxide 15 mmol/L (22-30) L D 05/15/19 08:07 Anion Gap 26 mmol/L 05/15/19 08:07 BUN 74 mg/dL (7-17) H 05/15/19 08:07 Creatinine 5.8 mg/dL (0.7-1.2) H 05/15/19 08:07 Estimated GFR 9 ml/min 05/15/19 08:07 BUN/Creatinine Ratio 13 % 05/15/19 08:07 Glucose 267 mg/dL (65-100) H 05/15/19 08:07 POC Glucose 344 (70-105) H 05/15/19 08:31 Lactic Acid 1.40 mmol/L (0.7-2.0) 05/15/19 11:41 Calcium 9.0 mg/dL (8.4-10.2) 05/15/19 08:07 Ferritin 146.3 ng/mL (13.0-400.0) 05/15/19 09:11 Total Bilirubin 0.20 mg/dL (0.1-1.2) 05/15/19 08:07 AST 14 units/L (5-40) 05/15/19 08:07 ALT < 5 units/L (7-56) L 05/15/19 08:07 Alkaline Phosphatase 60 units/L (35-129) 05/15/19 08:07 NT-Pro-B Natriuret Pep 7240 pg/mL (0-900) H 05/15/19 09:11 Total Protein 8.0 g/dL (6.3-8.2) 05/15/19 08:07 Albumin 3.2 g/dL (3.9-5) L 05/15/19 08:07 Albumin/Globulin Ratio 0.7 % 05/15/19 08:07 Urine Color Straw (Yellow) 05/15/19 12:07 Urine Turbidity Clear (Clear) 05/15/19 12:07 Urine pH 7.0 (5.0-7.0) 05/15/19 12:07 Ur Specific [place] 1.009 (1.003-1.030) 05/15/19 12:07 Urine Protein 100 mg/dl mg/dL (Negative) 05/15/19 12:07 Urine Glucose (UA) >=500 mg/dL (Negative) 05/15/19 12:07 Urine Ketones Neg mg/dL (Negative) 05/15/19 12:07 Urine Blood Sm (Negative) 05/15/19 12:07 Urine Nitrite Neg (Negative) 05/15/19 12:07 Urine Bilirubin Neg (Negative) 05/15/19 12:07 Urine Urobilinogen < 2.0 mg/dL (<2.0) 05/15/19 12:07 Ur Leukocyte Esterase Neg (Negative) 05/15/19 12:07 Urine WBC (Auto) 3.0 /HPF (0.0-6.0) 05/15/19 12:07 Urine RBC (Auto) 18.0 /HPF (0.0-6.0) 05/15/19 12:07 Urine Mucus Few /HPF 05/15/19 12:07 Salicylates < 0.3 mg/dL (2.8-20.0) L 05/15/19 13:10 Acetaminophen < 5.0 ug/mL (10.0-30.0) L 05/15/19 13:10 Short CBC 05/15/19 Range/Units 09:11 WBC 11.9 H (4.5-11.0) K/mm3 Hgb 9.3 L (10.1-14.3) gm/dl Hct 30.1 L (30.3-42.9) % Plt Count 217 (140-440) K/mm3 BMP 05/15/19 08:07 Sodium 136 L Potassium 4.1 Chloride 99.1 Carbon Dioxide 15 L D BUN 74 H Creatinine 5.8 H Glucose 267 H Calcium 9.0 Liver Function 05/15/19 Range/Units 08:07 Total Bilirubin 0.20 (0.1-1.2) mg/dL AST 14 (5-40) units/L ALT < 5 L (7-56) units/L Alkaline Phosphatase 60 (35-129) units/L Albumin 3.2 L (3.9-5) g/dL Urine 05/15/19 Range/Units 12:07 Urine Color Straw (Yellow) Urine pH 7.0 (5.0-7.0) Ur Specific [place] 1.009 (1.003-1.030) Urine Protein 100 mg/dl (Negative) mg/dL Urine Glucose (UA) >=500 (Negative) mg/dL Microbiology: Microbiology 05/15/19 Unknown Peripheral/Venous Blood Culture - Preliminary Culture in Progress 05/15/19 Unknown Peripheral/Venous Blood Culture - Preliminary Culture in Progress - Imaging and Cardiology EKG: report reviewed Chest x-ray: report reviewed CT scan - abdomen: report reviewed CT scan - chest: report reviewed CT Scan - head: report reviewed Imaging and Cardiology: CT chest Impression: 1. Diffuse bilateral groundglass opacities which are nonspecific but favored to be related to pulmonary edema. A diffuse infectious or inflammatory process could have a similar appearance. 2. Small bilateral pleural effusions with associated atelectasis. The more focal region of consolidation in the left lower lobe is also favored to be related to atelectasis, although focal airspace disease could have a similar appearance. Signer Name: Anamaria Fagan MD Signed: 05/15/2019 12:07 PM Workstation Name: [employer] Chest x-ray: IMPRESSION: Findings are most consistent with mild volume overload or CHF. There is poor visualization of the left lower lobe. Left lower lobe infiltrate is difficult to exclude. Abdominal CT IMPRESSION: 1. No evidence of focal inflammatory change within the abdomen or pelvis. 2. Bibasilar groundglass opacities, small bilateral pleural effusions with atelectasis. Please see CT of the chest report performed the same day. 3. Suggestion of mild anasarca indicating a volume overloaded state. Signer Name: Anamaria Fagan MD Signed: 05/15/2019 12:13 PM Workstation Name: [employer] CT head IMPRESSION: 1. No acute intracranial abnormality. 2. Periventricular and deep white matter lucency likely reflects microvascular ischemic change which is greater than expected for age 63 years. 3. Mild mucosal thickening within several ethmoid air cells bilaterally. Castellanos/IV: IV Catheter Type [Left INT / Saline Lock External Jugular] IV Catheter Type [Right Wrist] INT / Saline Lock IV Catheter Type [Right INT / Saline Lock External Jugular] Assessment and Plan Assessment and plan: The high probability OF a clinically significant sudden or life-threatening deterioration of the cardiorespiratory system and endocrine system required my full and direct attention, intervention and postoperative management. The aggregate medical care time was 40 minutes. The time is in addition to time spent performing reported procedures but includes the followin: Data review and interpretation 2: Patient assessment and monitoring of vital signs 3: Documentation 4:: Medication orders and management Advance Directives: Yes (Full code) VTE prophylaxis?: Chemical Plan of care discussed with patient/family: Yes - Patient Problems (1) Acute respiratory failure Current Visit: Yes Status: Acute Qualifiers: Respiratory failure complication: hypoxia Qualified Code(s): J96.01 - Acute respiratory failure with hypoxia Plan to address problem: Vent support Bilateral groundglass opacities Rule out coronavirus infection IV cefepime and IV vancomycin initiated ID consult requested (2) Acute encephalopathy Current Visit: Yes Status: Acute Plan to address problem: Etiology unclear Possibly secondary to hypoxia Differential diagnosis seizure disorder with postictal response (3) Suspected COVID-19 virus infection Current Visit: Yes Status: Acute Plan to address problem: Coronavirus form review I filled out by the ED physician form on the chart (4) Infection of AV graft for dialysis Current Visit: Yes Status: Acute Plan to address problem: IV cefepime and IV vancomycin Vascular surgery consult requested (5) Hypertension Current Visit: Yes Status: Chronic Qualifiers: Hypertension type: essential hypertension Qualified Code(s): I10 - Essential (primary) hypertension Plan to address problem: Antihypertensives as necessary (6) T2DM (type 2 diabetes mellitus) Current Visit: Yes Status: Chronic Qualifiers: 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
[2019-05-15] MEDS ORDERED: CEFEPIME/NS 2 GM/100 ML 2 GM/100 ML BAG IV ONE (20:38)
[2019-05-15] MEDS ORDERED: METOCLOPRAMIDE 10 MG/2 ML INJ IV PRN ×2 (23:04→23:24)
[2019-05-16] MEDS ORDERED: ACETAMINOPHEN 650 MG RECT SUPP PR PRN (01:28)
[2019-05-16] MEDS ORDERED: ACETAMINOPHEN 650 MG RECT SUPP PR ONE ×2 (01:32→22:53)
[2019-05-16 04:12] LABS: Basophils % (Auto) 0.2 % (0.0-1.8); Hematocrit 32.1 % (30.3-42.9); Hemoglobin 10.3 gm/dl (10.1-14.3); Lymphocytes # (Auto) 0.9 K/mm3 (1.2-5.4); Lymphocytes % (Auto) 7.1 % (13.4-35.0); Mean Corpuscular HGB Conc 32 % (30-34); Mean Corpuscular Volume 87 fl (79-97); Monocytes # (Auto) 0.6 K/mm3 (0.0-0.8); Red Blood Count 3.69 M/mm3 (3.65-5.03); Red Cell Distribution Width 14.8 % (13.2-15.2)
[2019-05-16 04:14] LABS: Platelet Count 235 K/mm3 (140-440)
[2019-05-16 04:16] LABS: ABG Base Excess -0.9 mmol/L (-2.0-3.0); ABG HCO3 23.4 mmol/L (20.0-26.0); ABG Methemoglobin 0.6 % (0.0-1.5); ABG Oxygen Saturation 99.3 % (95.0-99.0); ABG PCO2 36.8 mm Hg; ABG PH 7.422 pH Units (7.350-7.450); ABG PO2 213.3 mm Hg (80.0-90.0)
[2019-05-16] MEDS ORDERED: SIMPLE SYRUP 15 ML FEEDTUBE PRN ×2 (11:14)
[2019-05-16] MEDS ORDERED: SODIUM BICARBONATE 325 MG TAB FEEDTUBE PRN (11:14)
[2019-05-16] MEDS ORDERED: LIPASE 10,500/PROTEASE 25,000/AMYLASE 43,750 (UNITS) DR CAP FEEDTUBE PRN (11:14)
--- NOTE | 2019-05-16 11:48 | Consultation ---
History of Present Illness - Reason for Consult Consult date: 05/16/19 Possible Left Arm AV Graft Infection Requesting physician: MICKY JENNINGS - History of Present Illness The patient is a 63-year-old female with a history of chronic renal insufficiency who underwent a left brachial artery to axillary vein arteriovenous graft creation with 4-7 step PTFE graft on this past Wednesday. She presented to the Emergency Department with complaints of redness, fever, and d rainage of brownish fluid from the incisions, by report. Shortly after presenting to the emergency department she was noted to have respiratory distress requiring emergent intubation. She has been worked up for suspected COVID-19 infection. Past History Past Medical History: diabetes, hypertension, renal failure Past Surgical History: Other (Left arm AV graft insertion) Social history: no significant social history Family history: no significant family history Medications and Allergies Allergies Allergy/AdvReac Type Severity Reaction Status Date / Time No Known Allergies Allergy Unverified 05/10/19 15:33 Home Medications Medication Instructions Recorded Confirmed Last Taken Type Aspirin [Adult Aspirin] 81 mg PO DAILY 05/10/19 05/10/19 05/11/19 History Cyanocobalamin (Vitamin B-12) 2,500 mcg PO DAILY 05/10/19 05/10/19 05/11/19 History [Vitamin B12] Ferrous Sulfate [Feosol 325 MG tab] 325 mg PO DAILY 05/10/19 05/10/19 05/11/19 History Gabapentin 100 mg PO TID 05/10/19 05/10/19 05/11/19 History Insulin Aspart (Nf) [NovoLOG 100 10 unit SQ TIDAC 05/10/19 05/10/19 05/11/19 History UNITS/ML VIAL] Insulin Glargine [Lantus VIAL] 36 unit SQ QAM 05/10/19 05/10/19 05/11/19 History Tizanidine HCl [Tizanidine 2mg tab] 2 mg PO DAILY 05/10/19 05/10/19 05/11/19 History Torsemide [Demadex] 20 mg PO BID 05/10/19 05/10/19 05/11/19 History amLODIPine 10 mg PO BID 05/10/19 05/10/19 05/12/19 04:30 History calcitrioL [Rocaltrol] 0.5 mcg PO DAILY 05/10/19 05/10/1920 History carvediloL [Coreg] 12.5 mg PO BID 05/10/19 05/10/19 05/12/19 04:30 History oxyCODONE /ACETAMINOPHEN [Percocet 1 tab PO Q6HR PRN #24 tablet 05/12/19 Unknown Rx 5/325 mg] Active Meds: Active Medications Acetaminophen (Tylenol) 650 mg PO Q4H PRN PRN Reason: Pain MILD(1-3)/Fever >100.5/MELVIN Acetaminophen (Tylenol) 650 mg [place] Q6H PRN PRN Reason: Pain, Mild (1-3) Last Admin: 05/16/19 01:44 Dose: 650 mg Documented by: Lipase/Protease/Amylase (Pancreamanda Gillespie 10,500 Unit) 1 each FEEDTUBE PRN PRN PRN Reason: For Clogged Feeding Tube Famotidine (Pepcid) 20 mg IV DAILY [facility] Hydromorphone HCl (Dilaudid) 0.25 mg IV Q3H PRN PRN Reason: Pain, Moderate (4-6) Hydrophilic Ointment (Vaseline Lip Therapy) 1 applic TP Q2HR PRN PRN Reason: Dry Lips Propofol (Diprivan 10 Mg/Ml) 1,000 mg in 100 mls @ 2.585 mls/hr IV TITR [facility]; Protocol Last Admin: 05/16/19 01:44 Dose: 30 mcg/kg/min, 15.513 mls/hr Documented by: Cefepime HCl (Cefepime/Ns 1 Gm/100 Ml) 1 gm in 100 mls @ 200 mls/hr IV Q24HR [facility] Insulin Human Lispro (Humalog) 0 unit SUB-Q Q6HR [facility]; Protocol Metoclopramide HCl (Reglan) 5 mg IV Q6H PRN PRN Reason: Nausea And Vomiting Multi-Ingred Cream/Lotion/Oil/Oint (Artificial Tears Ophth Oint) 1 applic OU Q4HR PRN PRN Reason: Dry Eye(s) Ondansetron HCl (Zofran) 4 mg IV Q8H PRN PRN Reason: Nausea And Vomiting Simple Syrup (Simple Syrup) 15 ml FEEDTUBE PRN PRN PRN Reason: Hypoglycemia Simple Syrup (Simple Syrup) 30 ml FEEDTUBE PRN PRN PRN Reason: Hypoglycemia Sodium Bicarbonate (Sodium Bicarbonate) 325 mg FEEDTUBE PRN PRN PRN Reason: For Clogged Feeding Tube Sodium Chloride (Sodium Chloride Flush Syringe 10 Ml) 10 ml IV BID [facility]IS M Last Admin: 05/16/19 10:57 Dose: 10 ml Documented by: Sodium Chloride (Sodium Chloride Flush Syringe 10 Ml) 10 ml IV PRN PRN PRN Reason: LINE FLUSH Review of Systems ROS unobtainable: due to endotracheal tube Exam - Constitutional Vitals: Temp Pulse Resp BP Pulse Ox 100.0 F H 83 17 134/61 100 05/16/19 04:24 05/16/19 06:16 05/16/19 07:00 05/16/19 06:16 05/16/19 06:16 General appearance: Present: no acute distress, other (Currently on a ventilator and sedated) - Respiratory Respiratory effort: other (Ventilated) - Cardiovascular Rhythm: regular - Extremities Extremities: abnormal (Left arm AV graft with erythema near the arterial anastomosis. There is minimal serous drainage from the arterial incision with compression near the graft. There is no fluctuance. The patient is tender in the area of erythema.) Extremity abnormal: pulses diminished (There is no left radial pulse however the radial pulse returns with compression of the graft.) - Abdominal Female genitourinary: Present: deferred - Rectal Rectal Exam: deferred Results - Labs CBC & Chem 7: 05/16/19 03:44 05/15/19 08:07 Labs: Abnormal lab results 05/15/19 05/15/19 05/15/19 Range/Units 13:10 13:10 Unknown WBC (4.5-11.0) K/mm3 Lymph % (Auto) (13.4-35.0) % Lymph # (1.2-5.4) K/mm3 Seg Neutrophils % (40.0-70.0) % Seg Neutrophils # (1.8-7.7) K/mm3 ABG pO2 (80.0-90.0) mm Hg ABG O2 Saturation (95.0-99.0) % ABG Hemoglobin (12.0-16.0) gm/dl Hemoglobin A1c 7.7 H (4-6) % Salicylates < 0.3 L (2.8-20.0) mg/dL Acetaminophen < 5.0 L (10.0-30.0) ug/mL 03/31/20 03/31/20 Range/Units 03:44 03:58 WBC 12.9 H (4.5-11.0) K/mm3 Lymph % (Auto) 7.1 L (13.4-35.0) % Lymph # 0.9 L (1.2-5.4) K/mm3 Seg Neutrophils % 87.7 H (40.0-70.0) % Seg Neutrophils # 11.3 H (1.8-7.7) K/mm3 ABG pO2 213.3 H (80.0-90.0) mm Hg ABG O2 Saturation 99.3 H (95.0-99.0) % ABG Hemoglobin 7.5 L (12.0-16.0) gm/dl Hemoglobin A1c (4-6) % Salicylates (2.8-20.0) mg/dL Acetaminophen (10.0-30.0) ug/mL - Imaging and Cardiology Venous US: other (The left arm AV graft ultrasound was reviewed and there was no evidence of a significant fluid collection to suggest an abscess. The graft is patent but the flow volume was estimated at 4.4 L.) Assessment and Plan The patient is a 63-year-old female with a history of chronic renal insufficiency who presented to the emergency department with complaints of a low-grade fever and drainage from her incisions of her recently placed left arm AV graft. There is mild erythema around the incision of her arterial anastomosis with minimal serous drainage. She has a mild leukocytosis and bilateral groundglass opacities on her CT scan with respiratory failure that could be due to COVID-19 however review of the ultrasound suggests that her arteriovenous graft has an estimated flow volume of 4.4 L and her BNP is greater than 7000. It is possible that the patient is in high output cardiac failure. I am ordering a repeat duplex of the graft to confirm the volume flow within the graft. If the flow volume within the graft is confirmed to be a 4.4 L the patient may require ligation of her graft to help improve her symptoms.
[2019-05-16] MEDS ORDERED: FAMOTIDINE 20 MG/2 ML INJ IV ONE (12:50)
[2019-05-16] MEDS ORDERED: INSULIN LISPRO 100 UNIT/ML SUB-Q ONE (13:00)
[2019-05-16] MEDS: INSULIN LISPRO 100 UNIT/ML SUB-Q SCH ×4 (13:01→18:21)
[2019-05-16] MEDS: CEFEPIME/NS 1 GM/100 ML 1 GM/100 ML BAG IV SCH ×2 (13:02→13:33)
[2019-05-16] MEDS: FAMOTIDINE 20 MG/2 ML INJ IV SCH (13:02)
--- NOTE | 2019-05-16 13:58 | Consultation ---
History of Present Illness - Reason for Consult Consult date: 05/16/19 fever, pneumonia, R/o COVID Requesting physician: JAMAAL WATSON - History of Present Illness 63 y/o female with history of ESRD s/p AV graft placement 3 days before admission, admitted on 05/15/2019 for fever and drainage from the left upper extremity graft site. Ther eis also report of cough with whezzing and fever 102. In the ED, patient was unresponsive and gurgling at the mouth. Patient was in agonal respirations, patient was intubated. On arrival, temp 100.3, HR 107, Glu 267, LA 3.5. Ferritin 146. Blood cx so far neg. CT chest shows bilateral diffuse ground glass opacities. Review of systems: unable to obtain patient intubated Past History Past Medical History: diabetes, hypertension, renal failure Past Surgical History: Other (Left arm AV graft insertion) Social history: no significant social history Family history: no significant family history Medications and Allergies Allergies Allergy/AdvReac Type Severity Reaction Status Date / Time No Known Allergies Allergy Unverified 05/10/19 15:33 Home Medications Medication Instructions Recorded Confirmed Last Taken Type Aspirin [Adult Aspirin] 81 mg PO DAILY 05/10/19 05/10/19 05/11/19 History Cyanocobalamin (Vitamin B-12) 2,500 mcg PO DAILY 05/10/19 05/10/19 05/11/19 History [Vitamin B12] Ferrous Sulfate [Feosol 325 MG tab] 325 mg PO DAILY 05/10/19 05/10/19 05/11/19 History Gabapentin 100 mg PO TID 05/10/19 05/10/19 05/11/19 History Insulin Aspart (Nf) [NovoLOG 100 10 unit SQ TIDAC 05/10/19 05/10/19 05/11/19 History UNITS/ML VIAL] Insulin Glargine [Lantus VIAL] 36 unit SQ QAM 05/10/19 05/10/19 05/11/19 History Tizanidine HCl [Tizanidine 2mg tab] 2 mg PO DAILY 05/10/19 05/10/19 05/11/19 History Torsemide [Demadex] 20 mg PO BID 05/10/19 05/10/19 05/11/19 History amLODIPine 10 mg PO BID 05/10/19 05/10/1905/11/20 04:30 History calcitrioL [Rocaltrol] 0.5 mcg PO DAILY 05/10/19 05/10/19 05/11/19 History carvediloL [Coreg] 12.5 mg PO BID 05/10/19 05/10/19 05/12/19 04:30 History oxyCODONE /ACETAMINOPHEN [Percocet 1 tab PO Q6HR PRN #24 tablet 05/12/19 Unknown Rx 5/325 mg] Active Meds: Active Medications Acetaminophen (Tylenol) 650 mg PO Q4H PRN PRN Reason: Pain MILD(1-3)/Fever >100.5/MELVIN Acetaminophen (Tylenol) 650 mg [place] Q6H PRN PRN Reason: Pain, Mild (1-3) Last Admin: 05/16/19 01:44 Dose: 650 mg Documented by: Lipase/Protease/Amylase (Pancreaze Dr 10,500 Unit) 1 each FEEDTUBE PRN PRN PRN Reason: For Clogged Feeding Tube Famotidine (Pepcid) 20 mg IV DAILY [facility] Last Admin: 05/16/19 13:02 Dose: 20 mg Documented by: Hydromorphone HCl (Dilaudid) 0.25 mg IV Q3H PRN PRN Reason: Pain, Moderate (4-6) Hydrophilic Ointment (Vaseline Lip Therapy) 1 applic TP Q2HR PRN PRN Reason: Dry Lips Propofol (Diprivan 10 Mg/Ml) 1,000 mg in 100 mls @ 2.585 mls/hr IV TITR [facility]; Protocol Last Admin: 05/16/19 01:44 Dose: 30 mcg/kg/min, 15.513 mls/hr Documented by: Cefepime HCl (Cefepime/Ns 1 Gm/100 Ml) 1 gm in 100 mls @ 200 mls/hr IV Q24HR [facility] Last Admin: 05/16/19 13:02 Dose: 200 mls/hr Documented by: Insulin Human Lispro (Humalog) 0 unit SUB-Q Q6HR [facility]; Protocol Last Admin: 05/16/19 13:04 Dose: Not Given Documented by: Metoclopramide HCl (Reglan) 5 mg IV Q6H PRN PRN Reason: Nausea And Vomiting Multi-Ingred Cream/Lotion/Oil/Oint (Artificial Tears Ophth Oint) 1 applic OU Q4HR PRN PRN Reason: Dry Eye(s) Ondansetron HCl (Zofran) 4 mg IV Q8H PRN PRN Reason: Nausea And Vomiting Simple Syrup (Simple Syrup) 15 ml FEEDTUBE PRN PRN PRN Reason: Hypoglycemia Simple Syrup (Simple Syrup) 30 ml FEEDTUBE PRN PRN PRN Reason: Hypoglycemia Sodium Bicarbonate (Sodium Bicarbonate) 325 mg FEEDTUBE PRN PRN PRN Reason: For Clogged Feeding Tube Sodium Chloride (Sodium Chloride Flush Syringe 10 Ml) 10 ml IV BID LUIS M Last Admin: 05/16/19 10:57 Dose: 10 ml Documented by: Sodium Chloride (Sodium Chloride Flush Syringe 10 Ml) 10 ml IV PRN PRN PRN Reason: LINE FLUSH Physical Examination - Physical Exam Narrative exam: Constitutional: Intubated, sedated FiO2 50% p6 Head, Ears, Nose:limited due to lack of PPE Oral: Endotracheal tube Cardiovascular: Limited evaluation due to PPE shortage Respiratory: Limited evaluation due to PPE shortage GI: Limited evaluation due to PPE shortage Musculoskeletal: Limited evaluation due to PPE shortage Neurological: Sedated - Constitutional Vitals: Vital Signs Temp Pulse Resp BP Pulse Ox 100.0 F H 94 H 20 171/80 100 05/16/19 04:24 05/16/19 11:30 05/16/19 11:30 05/16/19 11:30 05/16/19 11:30 Temperature -Last 24 Hours Temperature 100.0 F Temperature 100.4 F Temperature 100.3 F Results - Labs CBC & Chem 7: 05/16/19 03:44 05/15/19 08:07 Labs: Abnormal lab results 05/15/19 05/15/19 05/15/19 Range/Units 13:10 13:10 Unknown WBC (4.5-11.0) K/mm3 Lymph % (Auto) (13.4-35.0) % Lymph # (1.2-5.4) K/mm3 Seg Neutrophils % (40.0-70.0) % Seg Neutrophils # (1.8-7.7) K/mm3 ABG pO2 (80.0-90.0) mm Hg ABG O2 Saturation (95.0-99.0) % ABG Hemoglobin (12.0-16.0) gm/dl Hemoglobin A1c 7.7 H (4-6) % Salicylates < 0.3 L (2.8-20.0) mg/dL Acetaminophen < 5.0 L (10.0-30.0) ug/mL 05/16/19 05/16/19 Range/Units 03:44 03:58 WBC 12.9 H (4.5-11.0) K/mm3 Lymph % (Auto) 7.1 L (13.4-35.0) % Lymph # 0.9 L (1.2-5.4) K/mm3 Seg Neutrophils % 87.7 H (40.0-70.0) % Seg Neutrophils # 11.3 H (1.8-7.7) K/mm3 ABG pO2 213.3 H (80.0-90.0) mm Hg ABG O2 Saturation 99.3 H (95.0-99.0) % ABG Hemoglobin 7.5 L (12.0-16.0) gm/dl Hemoglobin A1c (4-6) % Salicylates (2.8-20.0) mg/dL Acetaminophen (10.0-30.0) ug/mL Assessment and Plan Cultures: Blood culture 05/15/2019 no growth to date A/P: 63 y/o female with history of ESRD s/p AV graft placement 3 days before admission, admitted on 05/15/2019 for fever and drainage from the left upper extremity graft site as well as cough with whezzing and fever 102: #Severe sepsis: likely due to ?AVG infection ? bacteremia ? bilateral pneumonia #Presumed AVG infection: #Acute Acute Respiratory Failure: intubated, due to pneumonia #Severe bilateral pneumonia: suspicion for COVID-19 pneumonia versus pulmonary edema. Doubt current cytokine release syndrome secondary to COVID as ferritin is normal. CT chest shows bilateral diffuse ground glass opacities. #DM: uncontrolled #ESRD on HD Recs: Obtain COVID test ContinueCOVID isolationprecautions per [facility] protocol F/u blood culture Vascular consult Continue cefepime and vancomycin renally adusted Obtain Ferritin, LDH, D-Dimer, CRP in 48h Lou Bettencourt MD Infectious Diseases [employer] [facility] M [phone] O [phone]
--- NOTE | 2019-05-16 14:27 | Consultation ---
History of Present Illness Consult date: 05/16/19 Requesting physician: STEVIE LEBLANC Reason for consult: other (Acute Hypoxemic Respiratory Failure ([facility]I COVID-19)) History of present illness: PULMONARY/CCM CONSULT NOTE (Full dictation # [id number]) Please see dictated notes for full details Past History Past Medical History: diabetes, hypertension, renal failure Past Surgical History: Other (Left arm AV graft insertion) Social history: no significant social history Family history: no significant family history Medications and Allergies Allergies Allergy/AdvReac Type Severity Reaction Status Date / Time No Known Allergies Allergy Unverified 05/10/19 15:33 Home Medications Medication Instructions Recorded Confirmed Last Taken Type RX: Aspirin [Adult Aspirin] 81 mg PO DAILY 05/10/19 05/10/19 05/11/19 History RX: Cyanocobalamin (Vitamin B-12) 2,500 mcg PO DAILY 05/10/19 05/10/19 05/11/19 History [Vitamin B12] RX: Ferrous Sulfate [Feosol 325 MG 325 mg PO DAILY 05/10/19 05/10/19 05/11/19 History tab] RX: Gabapentin 100 mg PO TID 05/10/19 05/10/19 05/11/19 History RX: Insulin Aspart (Nf) [NovoLOG 10 unit SQ TIDAC 05/10/19 05/10/19 05/11/19 History 100 UNITS/ML VIAL] RX: Insulin Glargine [Lantus VIAL] 36 unit SQ QAM 05/10/19 05/10/19 05/11/19 History RX: Tizanidine HCl [Tizanidine 2mg 2 mg PO DAILY 05/10/19 05/10/19 05/11/19 History tab] RX: Torsemide [Demadex] 20 mg PO BID 05/10/19 05/10/19 05/11/19 History RX: amLODIPine 10 mg PO BID 05/10/19 05/10/19 05/12/19 04:30 History RX: calcitrioL [Rocaltrol] 0.5 mcg PO DAILY 05/10/19 05/10/19 05/11/19 History RX: carvediloL [Coreg] 12.5 mg PO BID 05/10/19 05/10/19 05/12/19 04:30 History RX: oxyCODONE /ACETAMINOPHEN 1 tab PO Q6HR PRN #24 tablet 05/12/19 Unknown Rx [Percocet 5/325 mg] Active Meds: Active Medications Acetaminophen (Tylenol) 650 mg PO Q4H PRN PRN Reason: Pain MILD(1-3)/Fever >100.5/EMLVIN Acetaminophen (Tylenol) 650 mg [place] Q6H PRN PRN Reason: Pain, Mild (1-3) Last Admin: 05/16/19 01:44 Dose: 650 mg Documented by: Lipase/Protease/Amylase (Pancreaze Dr 10,500 Unit) 1 each FEEDTUBE PRN PRN PRN Reason: For Clogged Feeding Tube Famotidine (Pepcid) 20 mg IV DAILY [facility] Last Admin: 05/16/19 13:02 Dose: 20 mg Documented by: Hydromorphone HCl (Dilaudid) 0.25 mg IV Q3H PRN PRN Reason: Pain, Moderate (4-6) Hydrophilic Ointment (Vaseline Lip Therapy) 1 applic TP Q2HR PRN PRN Reason: Dry Lips Propofol (Diprivan 10 Mg/Ml) 1,000 mg in 100 mls @ 2.585 mls/hr IV TITR [facility]; P rotocol Last Admin: 05/16/19 01:44 Dose: 30 mcg/kg/min, 15.513 mls/hr Documented by: Cefepime HCl (Cefepime/Ns 1 Gm/100 Ml) 1 gm in 100 mls @ 200 mls/hr IV Q24HR [facility] Last Admin: 05/16/19 13:02 Dose: 200 mls/hr Documented by: Insulin Human Lispro (Humalog) 0 unit SUB-Q Q6HR [facility]; Protocol Last Admin: 05/16/19 13:04 Dose: Not Given Documented by: Metoclopramide HCl (Reglan) 5 mg IV Q6H PRN PRN Reason: Nausea And Vomiting Multi-Ingred Cream/Lotion/Oil/Oint (Artificial Tears Ophth Oint) 1 applic OU Q4HR PRN PRN Reason: Dry Eye(s) Ondansetron HCl (Zofran) 4 mg IV Q8H PRN PRN Reason: Nausea And Vomiting Simple Syrup (Simple Syrup) 15 ml FEEDTUBE PRN PRN PRN Reason: Hypoglycemia Simple Syrup (Simple Syrup) 30 ml FEEDTUBE PRN PRN PRN Reason: Hypoglycemia Sodium Bicarbonate (Sodium Bicarbonate) 325 mg FEEDTUBE PRN PRN PRN Reason: For Clogged Feeding Tube Sodium Chloride (Sodium Chloride Flush Syringe 10 Ml) 10 ml IV BID [facility] M Last Admin: 05/16/19 10:57 Dose: 10 ml Documented by: Sodium Chloride (Sodium Chloride Flush Syringe 10 Ml) 10 ml IV PRN PRN PRN Reason: LINE FLUSH Physical Examination Vital signs: Vital Signs Pulse Resp Pulse Ox 107 H 26 H 100 05/15/19 08:30 05/15/19 08:30 05/15/19 08:30 Results - Laboratory Findings CBC and BMP: 05/17/19 05:43 05/17/19 05:43 ABG ABG pH 7.422 pH Units (7.350-7.450) 05/16/19 03:58 ABG pCO2 36.8 mm Hg 05/16/19 03:58 ABG pO2 213.3 mm Hg (80.0-90.0) H 05/16/19 03:58 ABG O2 Saturation 99.3 % (95.0-99.0) H 05/16/19 03:58 Abnormal lab findings: Abnormal Labs 05/15/19 05/15/19 05/15/19 08:07 08:31 09:11 WBC 11.9 H RBC 3.41 L Hgb 9.3 L Hct 30.1 L MCH 27 L Lymph % (Auto) Lymph # Seg Neutrophils % Seg Neutrophils # ABG pO2 ABG O2 Saturation ABG Base Excess ABG Hemoglobin Oxyhemoglobin Sodium 136 L Carbon Dioxide 15 L D BUN 74 H Creatinine 5.8 H Glucose 267 H POC Glucose 344 H Hemoglobin A1c Lactic Acid ALT < 5 L NT-Pro-B Natriuret Pep Albumin 3.2 L Salicylates Acetaminophen 05/15/19 05/15/19 05/15/19 09:11 09:11 09:30 WBC RBC Hgb Hct MCH Lymph % (Auto) Lymph # Seg Neutrophils % Seg Neutrophils # ABG pO2 ABG O2 Saturation ABG Base Excess -2.8 L ABG Hemoglobin 8.2 L Oxyhemoglobin 94.6 L Sodium Carbon Dioxide BUN Creatinine Glucose POC Glucose Hemoglobin A1c Lactic Acid 3.50 H* ALT NT-Pro-B Natriuret Pep 7240 H Albumin Salicylates Acetaminophen 05/15/19 05/15/19 05/15/19 13:10 13:10 Unknown WBC RBC Hgb Hct MCH Lymph % (Auto) Lymph # Seg Neutrophils % Seg Neutrophils # ABG pO2 ABG O2 Saturation ABG Base Excess ABG Hemoglobin Oxyhemoglobin Sodium Carbon Dioxide BUN Creatinine Glucose POC Glucose Hemoglobin A1c 7.7 H Lactic Acid ALT NT-Pro-B Natriuret Pep Albumin Salicylates < 0.3 L Acetaminophen < 5.0 L 05/16/19 05/16/19 03:44 03:58 WBC 12.9 H RBC Hgb Hct MCH Lymph % (Auto) 7.1 L Lymph # 0.9 L Seg Neutrophils % 87.7 H Seg Neutrophils # 11.3 H ABG pO2 213.3 H ABG O2 Saturation 99.3 H ABG Base Excess ABG Hemoglobin 7.5 L Oxyhemoglobin Sodium Carbon Dioxide BUN Creatinine Glucose POC Glucose Hemoglobin A1c Lactic Acid ALT NT-Pro-B Natriuret Pep Albumin Salicylates Acetaminophen
--- NOTE | 2019-05-16 15:02 | Progress Note ---
Assessment and Plan Assessment and plan: -- R/O Covid-19 Covid19 paperwork completed by ED --Acute hypoxic respiratory failure; requiring intubation On ventilatory support, nebulizers Supportive care, pulmonary critical following Wean as tolerated and extubate --Bilateral patchy groundglass opacities; Rule out Covid 19 pneumonia Isolation precautions, cultures ID following --Acute metabolic encephalopathy; Present on admission, probably secondary to hypoxemia Patient is now intubated closely monitor --Infected AV graft for dialysis; IV antibiotics, vascular,ID following --End-stage renal disease on hemodialysis; HD per schedulen nephrology following --Type 2 diabetes mellitus; moderate control Accu-Chek sliding scale coverage ADA diet and insulin as needed HbA1c 7.7 --Moderate malnutrition/hypoalbuminemia Due to underlying disease process, nutrition supplements Nutrition consult as needed --Lactic acidosis; rule out infections Supportive care --DVT prophylaxis; Lovenox --Obesity BMI 31.6; Patient needs weight reduction when medically stable --Full CODE STATUS; Monitor closely and adjust management as needed Very poor prognosis Plan of care reviewed with the patient's nurse Disposition; follow Covid-19 test Patient is critically ill with poor prognosis Wean as tolerated and extubate Follow consultants recommendations Critical care time 32 minutes History Interval history: Patient seen from a distance, due to shortage of PPE Intubated on ventilatory support, in severe distress Critically ill, vital signs reviewed In droplet and contact isolation Hospitalist Physical - Physical exam Narrative exam: Physical examination not done due to shortage of BP Reviewed physical examination of ID physician - Constitutional Vitals: Temp Pulse Resp BP Pulse Ox 100.0 F H 84 20 116/46 98 05/16/19 04:24 05/16/19 14:00 05/16/19 14:00 05/16/19 14:00 05/16/19 14:00 General appearance: Present: no acute distress, other (Currently on a ventilator and sedated) Results - Labs CBC & Chem 7: 05/16/19 03:44 05/15/19 08:07 Labs: Laboratory Last Values WBC 12.9 K/mm3 (4.5-11.0) H 05/16/19 03:44 RBC 3.69 M/mm3 (3.65-5.03) 05/16/19 03:44 Hgb 10.3 gm/dl (10.1-14.3) 05/16/19 03:44 Hct 32.1 % (30.3-42.9) 05/16/19 03:44 MCV 87 fl (79-97) 05/16/19 03:44 MCH 28 pg (28-32) 05/16/19 03:44 MCHC 32 % (30-34) 05/16/19 03:44 RDW 14.8 % (13.2-15.2) 05/16/19 03:44 Plt Count 235 K/mm3 (140-440) 05/16/19 03:44 Lymph % (Auto) 7.1 % (13.4-35.0) L 05/16/19 03:44 [place] % (Auto) 5.0 % (0.0-7.3) 05/16/19 03:44 Eos % (Auto) 0.0 % (0.0-4.3) 05/16/19 03:44 Baso % (Auto) 0.2 % (0.0-1.8) 05/16/19 03:44 Lymph # 0.9 K/mm3 (1.2-5.4) L 05/16/19 03:44 [place] # 0.6 K/mm3 (0.0-0.8) 05/16/19 03:44 Eos # 0.0 K/mm3 (0.0-0.4) 05/16/19 03:44 Baso # 0.0 K/mm3 (0.0-0.1) 05/16/19 03:44 Seg Neutrophils % 87.7 % (40.0-70.0) H 05/16/19 03:44 Seg Neutrophils # 11.3 K/mm3 (1.8-7.7) H 05/16/19 03:44 ABG pH 7.422 pH Units (7.350-7.450) 05/16/19 03:58 ABG pCO2 36.8 mm Hg 05/16/19 03:58 ABG pO2 213.3 mm Hg (80.0-90.0) H 05/16/19 03:58 ABG HCO3 23.4 mmol/L (20.0-26.0) 05/16/19 03:58 ABG O2 Saturation 99.3 % (95.0-99.0) H 05/16/19 03:58 ABG O2 Content 10.9 (0.0-44) 05/16/19 03:58 ABG Base Excess -0.9 mmol/L (-2.0-3.0) 05/16/19 03:58 ABG Hemoglobin 7.5 gm/dl (12.0-16.0) L 05/16/19 03:58 ABG Carboxyhemoglobin 1.3 % (0.0-5.0) 05/16/19 03:58 ABG Methemoglobin 0.6 % (0.0-1.5) 05/16/19 03:58 Oxyhemoglobin 97.4 % (95.0-99.0) 05/16/19 03:58 FiO2 30 % 05/16/19 03:58 Sodium 136 mmol/L (137-145) L 05/15/19 08:07 Potassium 4.1 mmol/L (3.6-5.0) 05/15/19 08:07 Chloride 99.1 mmol/L (98-107) 05/15/19 08:07 Carbon Dioxide 15 mmol/L (22-30) L D 05/15/19 08:07 Anion Gap 26 mmol/L 05/15/19 08:07 BUN 74 mg/dL (7-17) H 05/15/19 08:07 Creatinine 5.8 mg/dL (0.7-1.2) H 05/15/19 08:07 Estimated GFR 9 ml/min 05/15/19 08:07 BUN/Creatinine Ratio 13 % 05/15/19 08:07 Glucose 267 mg/dL (65-100) H 05/15/19 08:07 POC Glucose 344 (70-105) H 05/15/19 08:31 Hemoglobin A1c 7.7 % (4-6) H 05/15/19 Unknown Lactic Acid 1.40 mmol/L (0.7-2.0) 05/15/19 11:41 Calcium 9.0 mg/dL (8.4-10.2) 05/15/19 08:07 Ferritin 146.3 ng/mL (13.0-400.0) 05/15/19 09:11 Total Bilirubin 0.20 mg/dL (0.1-1.2) 05/15/19 08:07 AST 14 units/L (5-40) 05/15/19 08:07 ALT < 5 units/L (7-56) L 05/15/19 08:07 Alkaline Phosphatase 60 units/L (35-129) 05/15/19 08:07 NT-Pro-B Natriuret Pep 7240 pg/mL (0-900) H 05/15/19 09:11 Total Protein 8.0 g/dL (6.3-8.2) 05/15/19 08:07 Albumin 3.2 g/dL (3.9-5) L 05/15/19 08:07 Albumin/Globulin Ratio 0.7 % 05/15/19 08:07 Urine Color Straw (Yellow) 05/15/19 12:07 Urine Turbidity Clear (Clear) 05/15/19 12:07 Urine pH 7.0 (5.0-7.0) 05/15/19 12:07 Ur Specific [place] 1.009 (1.003-1.030) 05/15/19 12:07 Urine Protein 100 mg/dl mg/dL (Negative) 05/15/19 12:07 Urine Glucose (UA) >=500 mg/dL (Negative) 05/15/19 12:07 Urine Ketones Neg mg/dL (Negative) 05/15/19 12:07 Urine Blood Sm (Negative) 05/15/19 12:07 Urine Nitrite Neg (Negative) 05/15/19 12:07 Urine Bilirubin Neg (Negative) 05/15/19 12:07 Urine Urobilinogen < 2.0 mg/dL (<2.0) 05/15/19 12:07 Ur Leukocyte Esterase Neg (Negative) 05/15/19 12:07 Urine WBC (Auto) 3.0 /HPF (0.0-6.0) 05/15/19 12:07 Urine RBC (Auto) 18.0 /HPF (0.0-6.0) 05/15/19 12:07 Urine Mucus Few /HPF 05/15/19 12:07 Salicylates < 0.3 mg/dL (2.8-20.0) L 05/15/19 13:10 Acetaminophen < 5.0 ug/mL (10.0-30.0) L 05/15/19 13:10 Microbiology: Microbiology 05/15/19 Unknown Sputum - Endotracheal Wash Sputum Culture - Preliminary 05/15/19 Unknown Peripheral/Venous Blood Culture - Preliminary NO GROWTH AFTER 24 HOURS 05/15/19 Unknown Peripheral/Venous Blood Culture - Preliminary NO GROWTH AFTER 24 HOURS Castellanos/IV: IV Catheter Type [Left INT / Saline Lock External Jugular] IV Catheter Type [Right Wrist] INT / Saline Lock IV Catheter Type [Right INT / Saline Lock External Jugular] Active Medications - Current Medications Current Medications: Generic Name Dose Route Start Last Admin Trade Name Freq PRN Reason Stop Dose Admin Acetaminophen 650 mg 05/15/19 23:04 Tylenol PO Q4H PRN Pain MILD(1-3)/Fever >100.5/MELVIN Acetaminophen 650 mg 05/16/19 01:28 05/16/19 01:44 Tylenol [place] 650 mg Q6H PRN Administration Pain, Mild (1-3) Lipase/Protease/Amylase 1 each 05/16/19 11:[address] 10,500 Unit FEEDTUBE PRN PRN For Clogged Feeding Tube Famotidine 20 mg 05/16/19 10:00 05/16/19 13:02 Pepcid IV 20 mg DAILY LUIS M Administration Hydromorphone HCl 0.25 mg 05/15/19 23:04 Dilaudid IV Q3H PRN Pain, Moderate (4-6) Hydrophilic Ointment 1 applic 05/15/19 09:48 Vaseline Lip Therapy TP Q2HR PRN Dry Lips Propofol 1,000 mg in 100 mls @ 2.585 mls/hr 05/15/19 11:00 05/16/19 01:44 Diprivan 10 Mg/Ml IV 30 mcg/kg/min TITR LUIS M 15.513 mls/hr Administration Protocol 5 MCG/KG/MIN Cefepime HCl 1 gm in 100 mls @ 200 mls/hr 05/16/19 10:00 05/16/19 13:02 Cefepime/Ns 1 Gm/100 Ml IV 200 mls/hr Q24HR LUIS M Administration Insulin Human Lispro 0 unit 05/16/19 00:00 05/16/19 13:04 Humalog SUB-Q Not Given Q6HR [facility] Protocol Metoclopramide HCl 5 mg 05/15/19 23:24 Reglan IV Q6H PRN Nausea And Vomiting Multi-Ingred Cream/Lotion/Oil/Oint 1 applic 05/15/19 09:48 Artificial Tears Ophth Oint OU Q4HR PRN Dry Eye(s) Ondansetron HCl 4 mg 05/15/19 23:04 Zofran IV Q8H PRN Nausea And Vomiting Simple Syrup 15 ml 05/16/19 11:14 Simple Syrup FEEDTUBE PRN PRN Hypoglycemia Simple Syrup 30 ml 05/16/19 11:14 Simple Syrup FEEDTUBE PRN PRN Hypoglycemia Sodium Bicarbonate 325 mg 05/16/19 11:14 Sodium Bicarbonate FEEDTUBE PRN PRN For Clogged Feeding Tube Sodium Chloride 10 ml 05/16/19 10:00 05/16/19 10:57 Sodium Chloride Flush Syringe 10 Ml IV 10 ml BID LUIS M Administration Sodium Chloride 10 ml 05/15/19 23:04 Sodium Chloride Flush Syringe 10 Ml IV PRN PRN LINE FLUSH Nutrition/Malnutrition Assess - Dietary Evaluation Nutrition/Malnutrition Findings: Nutrition Notes Start: 05/16/19 08:31 Freq: Status: Active Protocol: Document 05/16/19 08:32 LM (Rec: 05/16/19 08:41 LM [id number]) Nutrition Notes Need for Assessment generated from: MD Order Initial or Follow up Assessment Current Diagnosis CKD (stage V CKD),Diabetes, Hypertension,Respiratory Failure Other Pertinent Diagnosis AV graft infection, fever, suspected COVID-19 Current Diet No diet Labs/Tests A1c 7.7 Pertinent Medications Propofol at 2.585 ml/hr (68 kcal) Height 5 ft 5 in Weight 86.183 kg [place] Body Weight (kg) 56.81 BMI 31.6 Weight Status Obese Subjective/Other Information MD consult for TF. Pt in ED and on vent. Burn Absent Trauma Absent Current % PO Negligible Minimum of two criteria No #1 Nutrition Diagnosis Inadequate oral intake Etiology Mechanical vent As Evidenced by Signs and Symptoms Pt unable to consume PO Is patient on ventilator? Yes Is Patient Ambulatory and/or Out of Bed No REE-([facility]-confined to bed) 1706.256 Kcal/Kg value to use for calculation 17 Approximate Energy Requirements Using 1465 kcal/Kg Calculation Used for Recommendations Kcal/kg Additional Notes Protein: 86-144g (1.2-2g/kg using AdjBW 72kg) Fluid: per MD Nutrition Intervention Change Diet Order: TF Nutrition Support: Nepro 1.8 at 35ml/hr Flush 150 ml q4h Kcal 1,512 Protein (gm) 68 Fluid (mL) 611 Goal #1 Start TF when medically feasible Anticipated Discharge Needs: unable to determine at this time Follow-Up By: 05/18/19 Additional Comments F/U for TF start/tolerance
[2019-05-16] MEDS ORDERED: ROCURONIUM 50 MG/5 ML INJ IV ONE (15:04)
[2019-05-16] MEDS ORDERED: ETOMIDATE 20 MG/10 ML INJ IV ONE (15:04)
--- NOTE | 2019-05-16 15:12 | Vascular Lab Report ---
DOPPLER ULTRASOUND UPPER EXTREMITY VASCULAR, INDICATION / CLINICAL INFORMATION: Left Arm AVG with possible High Volume Output TECHNIQUE: Grayscale, color and spectral Doppler imaging of the venous system of the upper extremity was perform ed. COMPARISON: 05/15/2019 FINDINGS: AV GRAFT - Location: LEFT Volume of flow = 784-1,165 mL/min on today's examination. This measured 4390 on yesterday's exam. Velocity in the brachial artery proximal to the graft is 248 cm/s Velocity at the inflow the graft is 290 cm/s In the mid graft flow velocities 503 cm/s area velocity close to the outflow is 266 cm/s. Velocity in the left axillary vein distal to the graft is 175 cm/s. Signer Name: Hernandez Avalos MD Signed: 05/16/2019 3:07 PM Workstation Name: [id number]
--- NOTE | 2019-05-16 15:44 | Progress Note ---
Assessment and Plan - Patient Problems (1) Pulmonary edema Current Visit: Yes Status: Acute Plan to address problem: in the setting of advanced CKD, possible high output heart failure s/p AVG placement. if no significant response to escalating dose of lasix seen and pt develops worsening oxygenation will consider renal replacement therapy. (2) CKD (chronic kidney disease) stage 5, GFR less than 15 ml/min Current Visit: No Status: Acute Plan to address problem: pt has history of diabetic nephropathy in the setting of long standing T2DM also complicated by diabetic retinopathy/diabetic neuropathy. Pt was being prepared for future HD, s/p recent LUE AVG placement, now with possible high output heart failure. Follow vascular surgery recommendations. No urgent indication for renal replacement at present, however if volume/respiratory status deteriorate despite escalating dose of IV diuresis will consider initiation of HD. Cont supportive care for CKD avoid nephrotoxins, NSAIDS, IV contrast. (3) Acute respiratory failure Current Visit: Yes Status: Acute Qualifiers: Respiratory failure complication: hypoxia Qualified Code(s): J96.01 - Acute respiratory failure with hypoxia Plan to address problem: pt is on ventilator support, management as per ICU team (4) Metabolic acidosis Current Visit: Yes Status: Acute Plan to address problem: combined lactic acidosis and hyperchloremic met acidosis secondary to advanced CKD, started Na bicarb 650mg po bid (5) Type 2 diabetes mellitus with diabetic chronic kidney disease Current Visit: Yes Status: Chronic Plan to address problem: DM management as per primary attending (6) Hypertensive chronic kidney disease with stage 5 chronic kidney disease or end stage renal disease Current Visit: Yes Status: Chronic Plan to address problem: monitor BP on current meds Subjective Date of service: 05/16/19 Principal diagnosis: LOI on CKD Interval history: Pt remains intubated, sedated Objective - Vital Signs Vital signs: Vital Signs - 12hr 05/16/19 05/16/19 05/16/19 03:46 04:00 04:16 Temperature Pulse Rate 91 H 82 83 Respiratory 13 20 20 Rate Blood Pressure 159/76 150/67 150/67 O2 Sat by Pulse 100 100 100 Oximetry 05/16/19 05/16/19 05/16/19 04:24 04:30 04:46 Temperature 100.0 F H Pulse Rate 84 80 Respiratory 20 20 Rate Blood Pressure 150/67 150/67 O2 Sat by Pulse 100 100 Oximetry 05/16/19 05/16/19 05/16/19 05:00 05:16 05:30 Temperature Pulse Rate 80 77 82 Respiratory 20 20 20 Rate Blood Pressure 134/61 134/61 134/61 O2 Sat by Pulse 100 100 100 Oximetry 05/16/19 05/16/19 05/16/19 05:46 06:00 06:16 Temperature Pulse Rate 82 81 83 Respiratory 13 20 17 Rate Blood Pressure 134/61 144/66 134/61 O2 Sat by Pulse 100 100 100 Oximetry 05/16/19 05/16/19 05/16/19 06:30 07:00 07:30 Temperature Pulse Rate 84 85 83 Respiratory 20 21 20 Rate Blood Pressure 134/61 150/70 150/70 O2 Sat by Pulse 100 100 100 Oximetry 05/16/19 05/16/19 05/16/19 08:00 08:02 08:30 Temperature Pulse Rate 79 82 Respiratory 20 20 20 Rate Blood Pressure 124/61 124/61 O2 Sat by Pulse 100 98 100 Oximetry 05/16/19 05/16/19 05/16/19 09:00 09:30 10:00 Temperature Pulse Rate 80 81 87 Respiratory 20 20 16 Rate Blood Pressure 142/68 142/68 143/81 O2 Sat by Pulse 100 100 99 Oximetry 05/16/19 05/16/19 05/16/19 10:30 11:00 11:30 Temperature Pulse Rate 83 89 94 H Respiratory 20 16 20 Rate Blood Pressure 143/81 143/81 171/80 O2 Sat by Pulse 100 100 100 Oximetry 05/16/19 05/16/19 05/16/19 12:00 13:00 14:00 Temperature Pulse Rate 84 84 84 Respiratory 20 20 20 Rate Blood Pressure 161/74 114/50 116/46 O2 Sat by Pulse 100 100 98 Oximetry - General Appearance General appearance: well-developed, sedated on ventilator, intubated EENT: ATNC, mucous membranes moist Neck: no JVD Respiratory: Present: [place] Cardiology: regular, S1S2 Gastrointestinal: normoactive bowel sounds Integumentary: no rash, other (+ edema ) Neurologic: other (intubated, sedated ) - Lab 05/16/19 03:44 05/15/19 08:07 Most recent lab results ABG pH 7.422 pH Units (7.350-7.450) 05/16/19 03:58 ABG pCO2 36.8 mm Hg 05/16/19 03:58 ABG pO2 213.3 mm Hg (80.0-90.0) H 05/16/19 03:58 ABG HCO3 23.4 mmol/L (20.0-26.0) 05/16/19 03:58 ABG O2 Saturation 99.3 % (95.0-99.0) H 05/16/19 03:58 Calcium 9.0 mg/dL (8.4-10.2) 05/15/19 08:07 Medications & Allergies - Medications Allergies/Adverse Reactions: Allergies No Known Allergies Allergy (Unverified 05/10/19 15:33) Home Medications: Home Medications Medication Instructions Recorded Confirmed Last Taken Type Aspirin [Adult Aspirin] 81 mg PO DAILY 05/10/19 05/10/19 05/11/19 History Cyanocobalamin (Vitamin B-12) 2,500 mcg PO DAILY 05/10/19 05/10/19 05/11/19 History [Vitamin B12] Ferrous Sulfate [Feosol 325 MG tab] 325 mg PO DAILY 05/10/19 05/10/19 05/11/19 History Gabapentin 100 mg PO TID 05/10/19 05/10/19 05/11/19 History Insulin Aspart (Nf) [NovoLOG 100 10 unit SQ TIDAC 05/10/19 05/10/19 05/11/19 History UNITS/ML VIAL] Insulin Glargine [Lantus VIAL] 36 unit SQ QAM 05/10/19 05/10/19 05/11/19 History Tizanidine HCl [Tizanidine 2mg tab] 2 mg PO DAILY 05/10/19 05/10/19 05/11/19 History Torsemide [Demadex] 20 mg PO BID 05/10/19 05/10/19 05/11/19 History amLODIPine 10 mg PO BID 05/10/19 05/10/19 05/12/19 04:30 History calcitrioL [Rocaltrol] 0.5 mcg PO DAILY 05/10/19 05/10/19 05/11/19 History carvediloL [Coreg] 12.5 mg PO BID 05/10/19 05/10/19 05/12/19 04:30 History oxyCODONE /ACETAMINOPHEN [Percocet 1 tab PO Q6HR PRN #24 tablet 05/12/19 Unknown Rx 5/325 mg] Active Medications: Generic Name Dose Route Start Last Admin Trade Name Freq PRN Reason Stop Dose Admin Acetaminophen 650 mg 05/15/19 23:04 Tylenol PO Q4H PRN Pain MILD(1-3)/Fever >100.5/MELVIN Acetaminophen 650 mg 05/16/19 01:28 05/16/19 01:44 Tylenol [place] 650 mg Q6H PRN Administration Pain, Mild (1-3) Lipase/Protease/Amylase 1 each 05/16/19 11:[address] 10,500 Unit FEEDTUBE PRN PRN For Clogged Feeding Tube Famotidine 20 mg 05/16/19 10:00 05/16/19 13:02 Pepcid IV 20 mg DAILY LUIS M Administration Hydromorphone HCl 0.25 mg 05/15/19 23:04 Dilaudid IV Q3H PRN Pain, Moderate (4-6) Hydrophilic Ointment 1 applic 05/15/19 09:48 Vaseline Lip Therapy TP Q2HR PRN Dry Lips Propofol 1,000 mg in 100 mls @ 2.585 mls/hr 05/15/19 11:00 05/16/19 01:44 Diprivan 10 Mg/Ml IV 30 mcg/kg/min TITR LUIS M 15.513 mls/hr Administration Protocol 5 MCG/KG/MIN Cefepime HCl 1 gm in 100 mls @ 200 mls/hr 05/16/19 10:00 05/16/19 13:02 Cefepime/Ns 1 Gm/100 Ml IV 200 mls/hr Q24HR LUIS M Administration Insulin Human Lispro 0 unit 05/16/19 00:00 05/16/19 13:04 Humalog SUB-Q Not Given Q6HR LUIS M Protocol Metoclopramide HCl 5 mg 05/15/19 23:24 Reglan IV Q6H PRN Nausea And Vomiting Multi-Ingred Cream/Lotion/Oil/Oint 1 applic 05/15/19 09:48 Artificial Tears Ophth Oint OU Q4HR PRN Dry Eye(s) Ondansetron HCl 4 mg 05/15/19 23:04 Zofran IV Q8H PRN Nausea And Vomiting Simple Syrup 15 ml 05/16/19 11:14 Simple Syrup FEEDTUBE PRN PRN Hypoglycemia Simple Syrup 30 ml 05/16/19 11:14 Simple Syrup FEEDTUBE PRN PRN Hypoglycemia Sodium Bicarbonate 325 mg 05/16/19 11:14 Sodium Bicarbonate FEEDTUBE PRN PRN For Clogged Feeding Tube Sodium Chloride 10 ml 05/16/19 10:00 05/16/19 10:57 Sodium Chloride Flush Syringe 10 Ml IV 10 ml BID LUIS M Administration Sodium Chloride 10 ml 05/15/19 23:04 Sodium Chloride Flush Syringe 10 Ml IV PRN PRN LINE FLUSH
[2019-05-16] MEDS ORDERED: INSULIN REGULAR, HUMAN 100 UNITS/1 ML ONE (18:19)
--- NOTE | 2019-05-16 21:23 | XRay Report ---
ABDOMEN 1 VIEW(S) 05/16/2019 7:58 PM INDICATION / CLINICAL INFORMATION: NGT placement prior to feeding.. COMPARISON: CT scan from yesterday FINDINGS: The tip of an esophagogastric tube projects over the body of the stomach in expected position. Endotr acheal tube tip projects in satisfactory position. Dense left retrocardiac opacity with some air bron chograms could be from atelectasis and/or airspace consolidation such as from a pneumonia or aspirati on. Signer Name: Abran Lawrence MD Signed: 05/16/2019 9:19 PM Workstation Name: [id number]
[2019-05-16] MEDS: SODIUM BICARBONATE 650 MG TAB PO SCH (23:00)
[2019-05-17] MEDS: INSULIN LISPRO 100 UNIT/ML SUB-Q SCH ×4 (00:10→18:38)
[2019-05-17 05:32] LABS: ABG Base Excess -3.6 mmol/L (-2.0-3.0); ABG HCO3 20.6 mmol/L (20.0-26.0); ABG Methemoglobin 0.5 % (0.0-1.5); ABG Oxygen Saturation 97.4 % (95.0-99.0); ABG PCO2 33.3 mm Hg; ABG PH 7.41 pH Units (7.350-7.450); ABG PO2 91.9 mm Hg (80.0-90.0)
[2019-05-17 06:16] LABS: Basophils % (Auto) 0.3 % (0.0-1.8); Eosinophils # (Auto) 0.1 K/mm3 (0.0-0.4); Eosinophils % (Auto) 0.9 % (0.0-4.3); Hematocrit 26.1 % (30.3-42.9); Hemoglobin 8.6 gm/dl (10.1-14.3); Lymphocytes # (Auto) 0.5 K/mm3 (1.2-5.4); Lymphocytes % (Auto) 6.4 % (13.4-35.0); Mean Corpuscular HGB Conc 33 % (30-34); Mean Corpuscular Volume 85 fl (79-97); Monocytes # (Auto) 0.4 K/mm3 (0.0-0.8); Monocytes % (Auto) 4.9 % (0.0-7.3); Platelet Count 230 K/mm3 (140-440); Red Blood Count 3.06 M/mm3 (3.65-5.03); Red Cell Distribution Width 14.2 % (13.2-15.2)
[2019-05-17 06:26] LABS: Calcium 8.8 mg/dL (8.4-10.2)
--- NOTE | 2019-05-17 08:29 | Event Note ---
Date: 05/17/19 Repeat ultrasound of the left arm AVG with Volume flow ranging from 700 ml - 1110 ml. This is more consistent with what is expected from a 4-7 step graft, since the arterial inflow of the graft is 4mm and controls the volume of flow. It is unlikely that the 4.4 liters was an accurate reading. The patient's currently respiratory issues are unlikely to be secondary to high output failure from her AV Graft.
[2019-05-17] MEDS ORDERED: CEFEPIME/NS 1 GM/100 ML 1 GM/100 ML BAG IV ONE (08:42)
[2019-05-17] MEDS: FAMOTIDINE 20 MG/2 ML INJ IV SCH (09:35)
[2019-05-17] MEDS: CEFEPIME/NS 1 GM/100 ML 1 GM/100 ML BAG IV SCH (09:35)
[2019-05-17] MEDS: SODIUM BICARBONATE 650 MG TAB PO SCH (11:12)
[2019-05-17] MEDS ORDERED: ACETAMINOPHEN 650 MG RECT SUPP PR ONE (11:55)
[2019-05-17] MEDS ORDERED: FAMOTIDINE 20 MG/2 ML INJ IV ONE (11:56)
--- NOTE | 2019-05-17 14:29 | Progress Note ---
Assessment and Plan Cultures: Blood culture 05/15/2019 no growth to date Sputum culture pending A/P: 63 y/o female with history of ESRD s/p AV graft placement 3 days before admission, admitted on 05/15/2019 for fever and drainage from the left upper extremity graft site as well as cough with whezzing and fever 102: #Severe sepsis: likely due to ?AVG infection ? bacteremia ? bilateral pneumonia. Blood cx neg so far #Presumed AVG infection: ? vascular on board, blood cx negative so far #Acute Acute Respiratory Failure: intubated, due to pneumonia #Severe bilateral pneumonia: suspicion for COVID-19 pneumonia versus pulmonary edema. Doubt current cytokine release syndrome secondary to COVID as ferritin is normal. CT chest shows bilateral diffuse ground glass opacities. #DM: uncontrolled #ESRD on HD Recs: Obtain COVID test - pending ContinueCOVID isolationprecautions per [facility] protocol F/u blood culture Vascular consult Continue cefepime and vancomycin renally adusted Day 3 of 5 Obtain Ferritin, LDH, D-Dimer, CRP tomorrow Lou Bettencourt MD Infectious Diseases [employer] [facility] ([facility]) M [phone] O [phone] Subjective Date of service: 05/17/19 Principal diagnosis: LOI on CKD Interval history: Remains with low grade fever intubated Objective - Exam Narrative Exam: Constitutional: Intubated, sedated FiO2 40% p6 Head, Ears, Nose:limited due to lack of PPE Oral: Endotracheal tube Cardiovascular: Limited evaluation due to PPE shortage Respiratory: Limited evaluation due to PPE shortage GI: Limited evaluation due to PPE shortage Musculoskeletal: Limited evaluation due to PPE shortage Skin: right arm AVG with edema, erythema and heat Neurological: Sedated - Constitutional Vitals: Vital Signs Temp Pulse Resp BP Pulse Ox 100.4 F H 81 20 168/67 95 05/17/19 11:35 05/17/19 11:33 05/17/19 11:00 05/17/19 11:33 05/17/19 11:33 Temperature -Last 24 Hours Temperature 100.4 F Temperature 99 F Temperature 100.1 F - Labs CBC & Chem 7: 05/17/19 05:43 05/17/19 05:43 Labs: Abnormal lab results 05/16/19 05/16/19 05/16/19 Range/Units 13:08 18:28 23:34 RBC (3.65-5.03) M/mm3 Hgb (10.1-14.3) gm/dl Hct (30.3-42.9) % Lymph % (Auto) (13.4-35.0) % Lymph # (1.2-5.4) K/mm3 Seg Neutrophils % (40.0-70.0) % ABG pO2 (80.0-90.0) mm Hg ABG Base Excess (-2.0-3.0) mmol/L ABG Hemoglobin (12.0-16.0) gm/dl Carbon Dioxide (22-30) mmol/L BUN (7-17) mg/dL Creatinine (0.7-1.2) mg/dL Glucose (65-100) mg/dL POC Glucose 231 H 181 H 177 H (70-105) 05/17/19 05/17/19 05/17/19 Range/Units 05:02 05:43 05:43 RBC 3.06 L (3.65-5.03) M/mm3 Hgb 8.6 L (10.1-14.3) gm/dl Hct 26.1 L D (30.3-42.9) % Lymph % (Auto) 6.4 L (13.4-35.0) % Lymph # 0.5 L (1.2-5.4) K/mm3 Seg Neutrophils % 87.5 H (40.0-70.0) % ABG pO2 91.9 H (80.0-90.0) mm Hg ABG Base Excess -3.6 L (-2.0-3.0) mmol/L ABG Hemoglobin 7.2 L (12.0-16.0) gm/dl Carbon Dioxide 17 L (22-30) mmol/L BUN 76 H (7-17) mg/dL Creatinine 5.4 H (0.7-1.2) mg/dL Glucose 231 H (65-100) mg/dL POC Glucose (70-105)
[2019-05-17] MEDS ORDERED: INSULIN LISPRO 100 UNIT/ML SUB-Q ONE ×2 (15:37→18:37)
--- NOTE | 2019-05-17 15:38 | Progress Note ---
Assessment and Plan Assessment and plan: --Covid-19 Suspected Covid19 paperwork completed by ED F/U ferritin, LDH, D-Dimer and CRP --Acute hypoxic respiratory failure; requiring intubation On ventilatory support, nebulizers Supportive care, pulmonary critical following Wean as tolerated per pulm --Bilateral patchy groundglass opacities/pneumonia Isolation precautions, cultures ID following --Acute metabolic encephalopathy; Present on admission, probably secondary to hypoxemia --Infected AV graft for dialysis; IV antibiotics, vascular,ID following --End-stage renal disease on hemodialysis; HD per schedulen nephrology following --Type 2 diabetes mellitus; moderate control Accu-Chek sliding scale coverage ADA diet and insulin as needed HbA1c 7.7 --Moderate malnutrition/hypoalbuminemia Due to underlying disease process, nutrition supplements Nutrition consult as needed --Lactic acidosis; rule out infections Supportive care --DVT prophylaxis; Lovenox --Obesity BMI 31.6; Patient needs weight reduction when medically stable --Full CODE STATUS; Monitor closely and adjust management as needed Very poor prognosis Plan of care reviewed with the patient's nurse Disposition; follow Covid-19 test Patient is critically ill with poor prognosis Wean as tolerated and extubate Follow consultants recommendations Hospitalist Physical - Constitutional Vitals: Temp Pulse Resp BP Pulse Ox 100.4 F H 81 20 168/67 95 05/17/19 11:35 05/17/19 11:33 05/17/19 11:00 05/17/19 11:33 05/17/19 11:33 General appearance: Present: no acute distress, other (Currently on a ventilator and sedated) Results - Labs CBC & Chem 7: 05/17/19 05:43 05/17/19 05:43 Labs: Laboratory Last Values WBC 8.2 K/mm3 (4.5-11.0) 05/17/19 05:43 RBC 3.06 M/mm3 (3.65-5.03) L 05/17/19 05:43 Hgb 8.6 gm/dl (10.1-14.3) L 05/17/19 05:43 Hct 26.1 % (30.3-42.9) L D 05/17/19 05:43 MCV 85 fl (79-97) 05/17/19 05:43 MCH 28 pg (28-32) 05/17/19 05:43 MCHC 33 % (30-34) 05/17/19 05:43 RDW 14.2 % (13.2-15.2) 05/17/19 05:43 Plt Count 230 K/mm3 (140-440) 05/17/19 05:43 Lymph % (Auto) 6.4 % (13.4-35.0) L 05/17/19 05:43 [place] % (Auto) 4.9 % (0.0-7.3) 05/17/19 05:43 Eos % (Auto) 0.9 % (0.0-4.3) 05/17/19 05:43 Baso % (Auto) 0.3 % (0.0-1.8) 05/17/19 05:43 Lymph # 0.5 K/mm3 (1.2-5.4) L 05/17/19 05:43 [place] # 0.4 K/mm3 (0.0-0.8) 05/17/19 05:43 Eos # 0.1 K/mm3 (0.0-0.4) 05/17/19 05:43 Baso # 0.0 K/mm3 (0.0-0.1) 05/17/19 05:43 Seg Neutrophils % 87.5 % (40.0-70.0) H 05/17/19 05:43 Seg Neutrophils # 7.2 K/mm3 (1.8-7.7) 05/17/19 05:43 ABG pH 7.410 pH Units (7.350-7.450) 05/17/19 05:02 ABG pCO2 33.3 mm Hg 05/17/19 05:02 ABG pO2 91.9 mm Hg (80.0-90.0) H 05/17/19 05:02 ABG HCO3 20.6 mmol/L (20.0-26.0) 05/17/19 05:02 ABG O2 Saturation 97.4 % (95.0-99.0) 05/17/19 05:02 ABG O2 Content 9.8 (0.0-44) 05/17/19 05:02 ABG Base Excess -3.6 mmol/L (-2.0-3.0) L 05/17/19 05:02 ABG Hemoglobin 7.2 gm/dl (12.0-16.0) L 05/17/19 05:02 ABG Carboxyhemoglobin 1.5 % (0.0-5.0) 05/17/19 05:02 ABG Methemoglobin 0.5 % (0.0-1.5) 05/17/19 05:02 Oxyhemoglobin 95.4 % (95.0-99.0) 05/17/19 05:02 FiO2 70 % 05/17/19 05:02 Sodium 143 mmol/L (137-145) D 05/17/19 05:43 Potassium 3.8 mmol/L (3.6-5.0) 05/17/19 05:43 Chloride 102.4 mmol/L (98-107) 05/17/19 05:43 Carbon Dioxide 17 mmol/L (22-30) L 05/17/19 05:43 Anion Gap 27 mmol/L 05/17/19 05:43 BUN 76 mg/dL (7-17) H 05/17/19 05:43 Creatinine 5.4 mg/dL (0.7-1.2) H 05/17/19 05:43 Estimated GFR 10 ml/min 05/17/19 05:43 BUN/Creatinine Ratio 14 % 05/17/19 05:43 Glucose 231 mg/dL (65-100) H 05/17/19 05:43 POC Glucose 302 (70-105) H 05/17/19 15:15 Hemoglobin A1c 7.7 % (4-6) H 05/15/19 Unknown Lactic Acid 1.40 mmol/L (0.7-2.0) 05/15/19 11:41 Calcium 8.8 mg/dL (8.4-10.2) 05/17/19 05:43 Ferritin 146.3 ng/mL (13.0-400.0) 05/15/19 09:11 Total Bilirubin 0.20 mg/dL (0.1-1.2) 05/15/19 08:07 AST 14 units/L (5-40) 05/15/19 08:07 ALT < 5 units/L (7-56) L 05/15/19 08:07 Alkaline Phosphatase 60 units/L (35-129) 05/15/19 08:07 NT-Pro-B Natriuret Pep 7240 pg/mL (0-900) H 05/15/19 09:11 Total Protein 8.0 g/dL (6.3-8.2) 05/15/19 08:07 Albumin 3.2 g/dL (3.9-5) L 05/15/19 08:07 Albumin/Globulin Ratio 0.7 % 05/15/19 08:07 Urine Color Straw (Yellow) 05/15/19 12:07 Urine Turbidity Clear (Clear) 05/15/19 12:07 Urine pH 7.0 (5.0-7.0) 05/15/19 12:07 Ur Specific [place] 1.009 (1.003-1.030) 05/15/19 12:07 Urine Protein 100 mg/dl mg/dL (Negative) 05/15/19 12:07 Urine Glucose (UA) >=500 mg/dL (Negative) 05/15/19 12:07 Urine Ketones Neg mg/dL (Negative) 05/15/19 12:07 Urine Blood Sm (Negative) 05/15/19 12:07 Urine Nitrite Neg (Negative) 05/15/19 12:07 Urine Bilirubin Neg (Negative) 05/15/19 12:07 Urine Urobilinogen < 2.0 mg/dL (<2.0) 05/15/19 12:07 Ur Leukocyte Esterase Neg (Negative) 05/15/19 12:07 Urine WBC (Auto) 3.0 /HPF (0.0-6.0) 05/15/19 12:07 Urine RBC (Auto) 18.0 /HPF (0.0-6.0) 05/15/19 12:07 Urine Mucus Few /HPF 05/15/19 12:07 Random Vancomycin 11.9 ug/mL (0-40.0) 05/17/19 14:57 Salicylates < 0.3 mg/dL (2.8-20.0) L 05/15/19 13:10 Acetaminophen < 5.0 ug/mL (10.0-30.0) L 05/15/19 13:10 Microbiology: Microbiology 05/15/19 Unknown Peripheral/Venous Blood Culture - Preliminary NO GROWTH AFTER 48 HOURS 05/15/19 Unknown Peripheral/Venous Blood Culture - Preliminary NO GROWTH AFTER 48 HOURS 05/15/19 Unknown Sputum - Endotracheal Wash Sputum Culture - Preliminary Castellanos/IV: IV Catheter Type [Left INT / Saline Lock External Jugular] IV Catheter Type [Right Wrist] INT / Saline Lock IV Catheter Type [Right INT / Saline Lock External Jugular] Active Medications - Current Medications Current Medications: Generic Name Dose Route Start Last Admin Trade Name Freq PRN Reason Stop Dose Admin Acetaminophen 650 mg 05/15/19 23:04 Tylenol PO Q4H PRN Pain MILD(1-3)/Fever >100.5/MELVIN Acetaminophen 650 mg 05/16/19 01:28 05/16/19 01:44 Tylenol [place] 650 mg Q6H PRN Administration Pain, Mild (1-3) Lipase/Protease/Amylase 1 each 05/16/19 11:[address] 10,500 Unit FEEDTUBE PRN PRN For Clogged Feeding Tube Famotidine 20 mg 05/16/19 10:00 05/17/19 09:35 Pepcid IV 20 mg DAILY LUIS M Administration Hydromorphone HCl 0.25 mg 05/15/19 23:04 Dilaudid IV Q3H PRN Pain, Moderate (4-6) Hydrophilic Ointment 1 applic 05/15/19 09:48 Vaseline Lip Therapy TP Q2HR PRN Dry Lips Propofol 1,000 mg in 100 mls @ 2.585 mls/hr 05/15/19 11:00 05/17/19 14:12 Diprivan 10 Mg/Ml IV Infused TITR LUIS M Titration Protocol 5 MCG/KG/MIN Cefepime HCl 1 gm in 100 mls @ 200 mls/hr 05/16/19 10:00 05/17/19 09:35 Cefepime/Ns 1 Gm/100 Ml IV 200 mls/hr Q24HR LUIS M Administration Insulin Human Lispro 0 unit 05/16/19 00:00 05/17/19 09:35 Humalog SUB-Q Not Given Q6HR LUIS M Protocol Metoclopramide HCl 5 mg 05/15/19 23:24 Reglan IV Q6H PRN Nausea And Vomiting Multi-Ingred Cream/Lotion/Oil/Oint 1 applic 05/15/19 09:48 Artificial Tears Ophth Oint OU Q4HR PRN Dry Eye(s) Ondansetron HCl 4 mg 05/15/19 23:04 Zofran IV Q8H PRN Nausea And Vomiting Simple Syrup 15 ml 05/16/19 11:14 Simple Syrup FEEDTUBE PRN PRN Hypoglycemia Simple Syrup 30 ml 05/16/19 11:14 Simple Syrup FEEDTUBE PRN PRN Hypoglycemia Sodium Bicarbonate 325 mg 05/16/19 11:14 Sodium Bicarbonate FEEDTUBE PRN PRN For Clogged Feeding Tube Sodium Bicarbonate 650 mg 05/16/19 22:00 05/17/19 11:12 Sodium Bicarbonate PO Not Given BID LUIS M Sodium Chloride 10 ml 05/16/19 10:00 05/17/19 09:40 Sodium Chloride Flush Syringe 10 Ml IV 10 ml BID LUIS M Administration Sodium Chloride 10 ml 05/15/19 23:04 Sodium Chloride Flush Syringe 10 Ml IV PRN PRN LINE FLUSH Nutrition/Malnutrition Assess - Dietary Evaluation Nutrition/Malnutrition Findings: Nutrition Notes Start: 05/16/19 08:31 Freq: Status: Active Protocol: Document 05/16/19 08:32 LM (Rec: 05/16/19 08:41 LM [id number]) Nutrition Notes Need for Assessment generated from: MD Order Initial or Follow up Assessment Current Diagnosis CKD (stage V CKD),Diabetes, Hypertension,Respiratory Failure Other Pertinent Diagnosis AV graft infection, fever, suspected COVID-19 Current Diet No diet Labs/Tests A1c 7.7 Pertinent Medications Propofol at 2.585 ml/hr (68 kcal) Height 5 ft 5 in Weight 86.183 kg [place] Body Weight (kg) 56.81 BMI 31.6 Weight Status Obese Subjective/Other Information MD consult for TF. Pt in ED and on vent. Burn Absent Trauma Absent Current % PO Negligible Minimum of two criteria No #1 Nutrition Diagnosis Inadequate oral intake Etiology Mechanical vent As Evidenced by Signs and Symptoms Pt unable to consume PO Is patient on ventilator? Yes Is Patient Ambulatory and/or Out of Bed No REE-([facility]-confined to bed) 1706.256 Kcal/Kg value to use for calculation 17 Approximate Energy Requirements Using 1465 kcal/Kg Calculation Used for Recommendations Kcal/kg Additional Notes Protein: 114g (>/=2g/kg using IBW 57kg) Fluid: per MD Nutrition Intervention Change Diet Order: TF Nutrition Support: Nepro 1.8 at 35ml/hr Flush 150 ml q4h Kcal 1,512 Protein (gm) 68 Fluid (mL) 611 Goal #1 Start TF when medically feasible Anticipated Discharge Needs: unable to determine at this time Follow-Up By: 05/18/19 Additional Comments F/U for TF start/tolerance
--- NOTE | 2019-05-17 16:19 | Progress Note ---
Assessment and Plan Acute hypoxemic respiratory failure, on mechanical ventilatory support. Bilateral pneumonia vs pulmonary edema. Bilateral pleural effusions. Sepsis syndrome. Possible COVID-19 infection. End-stage renal disease, on dialysis. Acute toxic metabolic encephalopathy. Diabetes type 2. History of congestive heart failure. History of hypertension. Oropharyngeal dysphagia. Gastroesophageal reflux disease. Obesity - follow COVID result - contiunue airborne, droplet and contact precautions - follow serum inflammation markers - Conservative fluid management (use vasopressors including midodrine to support blood pressure). - ABG, CXR per protocol - VAP bundle addressed (continue aspiration precautions) - continue to wean supplemental oxygen to keep O2 sats > 90% - continue daily SAT's and SBT assessment - continue Bronchodilators (SHASHANK) with pulm hygiene per RT - sedation target for RASS 0 to -1 - Accuchecks with glycemic control, keep blood glucose 140-180 mg/dL while critically ill (Avoid hypoglycemia) - continue HD/UF for toxin and volume control - Avoid nephrotoxins, adjust and dose all medications fro GFR and CrCL - continue GI & VTE prophylaxis - continue QT monitoring while on plaqenil (Stop if QT interval > 500) - other COVID-19 precautions per [facility] protocol - enteral nutrition at goal rate as tolerated - prn analgesia per CPOT score - mobility protocols to prevent pressure ulcers - GI & VTE prophylaxis - Flu & pneumovax per protocol - continue other care per attending / other consultants ... re-evaluate in am & prn CONDITION: CRITICAL PROGNOSIS: GUARDED CODE STATUS: FULL CODE The high probability of a clinically significant, sudden or life threatening deterioration of the [pulmonary, renal & neurologic] system(s) required my full and direct attention, intervention and personal management. The aggregate critical care time was [35] minutes. This time is in addition to time spent performing reported procedures but includes the following: [x] Data Review and interpretation [x] Patient assessment and monitoring of vital signs [x] Documentation [x] Medication orders and management Subjective Date of service: 05/17/19 Principal diagnosis: Ac hypoxemic resp failure; Hakeem pneumonia; Sepsis; COVID-19 infection; ESRD Interval history: Patient is seen today for: Acute hypoxemic respiratory failure; Bilateral pneumonia vs pulmonary edema; Bilateral pleural effusions; Sepsis; Possible COVID-19 infection; End-stage renal disease, on dialysis; Acute toxic metabolic encephalopathy. Seen and examined at bedside; 24hour events reviewed; nursing and respiratory care staff consulted; no adverse overnight events reported to me; resting peacefully in bed; remains on MVS: no emesis or overt aspiration; AMS is persistent; no seizures; no gross bleeding; no high grade fevers Objective Vital Signs - 12hr 05/17/19 05/17/19 05/17/19 04:53 05:00 06:00 Temperature Pulse Rate 80 81 81 Respiratory 20 20 Rate Blood Pressure 129/53 132/54 132/54 O2 Sat by Pulse 99 98 100 Oximetry 05/17/19 05/17/19 05/17/19 07:00 08:00 08:30 Temperature Pulse Rate 76 80 79 Respiratory 20 18 Rate Blood Pressure 128/57 150/66 150/66 O2 Sat by Pulse 100 95 97 Oximetry 05/17/19 05/17/19 05/17/19 09:00 10:00 11:00 Temperature Pulse Rate 82 82 89 Respiratory 20 20 20 Rate Blood Pressure 161/70 156/67 169/67 O2 Sat by Pulse 96 94 94 Oximetry 05/17/19 05/17/19 11:33 11:35 Temperature 100.4 F H Pulse Rate 81 Respiratory Rate Blood Pressure 168/67 O2 Sat by Pulse 95 Oximetry Constitutional: no acute distress, other (elderly looking obese AAF, normocephalic with no ventilator dyssynchrony) Eyes: non-icteric ENT: oropharynx moist, other (ETT 24 cm KARLA) Neck: supple, no lymphadenopathy Effort: mildly labored Ascultation: Bilateral: diminished breath sounds, rhonchi Percussion: Bilateral: not dull Cardiovascular: regular rate and rhythm Gastrointestinal: normoactive bowel sounds, soft, non-tender, non-distended Integumentary: rash Extremities: no cyanosis, no edema, pulses normal, no ischemia or petechiae Neurologic: unable to assess Psychiatric: other (encephalopathic) CBC and BMP: 05/17/19 05:43 05/19/19 15:02 ABG, PT/INR, D-dimer: ABG ABG pH 7.410 pH Units (7.350-7.450) 05/17/19 05:02 ABG pCO2 33.3 mm Hg 05/17/19 05:02 ABG pO2 91.9 mm Hg (80.0-90.0) H 05/17/19 05:02 ABG O2 Saturation 97.4 % (95.0-99.0) 05/17/19 05:02 Abnormal lab findings: Abnormal Labs 05/15/19 05/15/19 05/15/19 08:07 08:31 09:11 WBC 11.9 H RBC 3.41 L Hgb 9.3 L Hct 30.1 L MCH 27 L Lymph % (Auto) Lymph # Seg Neutrophils % Seg Neutrophils # ABG pO2 ABG O2 Saturation ABG Base Excess ABG Hemoglobin Oxyhemoglobin Sodium 136 L Carbon Dioxide 15 L D BUN 74 H Creatinine 5.8 H Glucose 267 H POC Glucose 344 H Hemoglobin A1c Lactic Acid ALT < 5 L NT-Pro-B Natriuret Pep Albumin 3.2 L Salicylates Acetaminophen 05/15/19 05/15/19 05/15/19 09:11 09:11 09:30 WBC RBC Hgb Hct MCH Lymph % (Auto) Lymph # Seg Neutrophils % Seg Neutrophils # ABG pO2 ABG O2 Saturation ABG Base Excess -2.8 L ABG Hemoglobin 8.2 L Oxyhemoglobin 94.6 L Sodium Carbon Dioxide BUN Creatinine Glucose POC Glucose Hemoglobin A1c Lactic Acid 3.50 H* ALT NT-Pro-B Natriuret Pep 7240 H Albumin Salicylates Acetaminophen 05/15/19 05/15/19 05/15/19 13:10 13:10 Unknown WBC RBC Hgb Hct MCH Lymph % (Auto) Lymph # Seg Neutrophils % Seg Neutrophils # ABG pO2 ABG O2 Saturation ABG Base Excess ABG Hemoglobin Oxyhemoglobin Sodium Carbon Dioxide BUN Creatinine Glucose POC Glucose Hemoglobin A1c 7.7 H Lactic Acid ALT NT-Pro-B Natriuret Pep Albumin Salicylates < 0.3 L Acetaminophen < 5.0 L 05/16/19 05/16/19 05/16/19 03:44 03:58 13:08 WBC 12.9 H RBC Hgb Hct MCH Lymph % (Auto) 7.1 L Lymph # 0.9 L Seg Neutrophils % 87.7 H Seg Neutrophils # 11.3 H ABG pO2 213.3 H ABG O2 Saturation 99.3 H ABG Base Excess ABG Hemoglobin 7.5 L Oxyhemoglobin Sodium Carbon Dioxide BUN Creatinine Glucose POC Glucose 231 H Hemoglobin A1c Lactic Acid ALT NT-Pro-B Natriuret Pep Albumin Salicylates Acetaminophen 05/16/19 05/16/1905/16/20 18:28 23:34 05:02 WBC RBC Hgb Hct MCH Lymph % (Auto) Lymph # Seg Neutrophils % Seg Neutrophils # ABG pO2 91.9 H ABG O2 Saturation ABG Base Excess -3.6 L ABG Hemoglobin 7.2 L Oxyhemoglobin Sodium Carbon Dioxide BUN Creatinine Glucose POC Glucose 181 H 177 H Hemoglobin A1c Lactic Acid ALT NT-Pro-B Natriuret Pep Albumin Salicylates Acetaminophen 05/17/19 05/17/19 05/17/19 05:43 05:43 15:15 WBC RBC 3.06 L Hgb 8.6 L Hct 26.1 L D MCH Lymph % (Auto) 6.4 L Lymph # 0.5 L Seg Neutrophils % 87.5 H Seg Neutrophils # ABG pO2 ABG O2 Saturation ABG Base Excess ABG Hemoglobin Oxyhemoglobin Sodium Carbon Dioxide 17 L BUN 76 H Creatinine 5.4 H Glucose 231 H POC Glucose 302 H Hemoglobin A1c Lactic Acid ALT NT-Pro-B Natriuret Pep Albumin Salicylates Acetaminophen Chest x-ray: pending Allied health notes reviewed: nursing
--- NOTE | 2019-05-17 17:25 | Progress Note ---
Assessment and Plan - Patient Problems (1) Pulmonary edema Current Visit: Yes Status: Acute Plan to address problem: in the setting of advanced CKD, IV lasix challenge. if no significant response to escalating dose of lasix seen and pt develops worsening oxygenation will consider renal replacement therapy. (2) CKD (chronic kidney disease) stage 5, GFR less than 15 ml/min Current Visit: No Status: Acute Plan to address problem: pt has history of diabetic nephropathy in the setting of long standing T2DM also complicated by diabetic retinopathy/diabetic neuropathy. Pt was being prepared for future HD, s/p recent LUE AVG placement. No urgent indication for renal replacement at present, however if volume/respiratory status deteriorate despite escalating dose of IV diuresis will consider initiation of HD. Cont supportive care for CKD avoid nephrotoxins, NSAIDS, IV contrast. (3) Acute respiratory failure Current Visit: Yes Status: Acute Qualifiers: Respiratory failure complication: hypoxia Qualified Code(s): J96.01 - Acute respiratory failure with hypoxia Plan to address problem: pt is on ventilator support, management as per ICU team (4) Metabolic acidosis Current Visit: Yes Status: Acute Plan to address problem: combined lactic acidosis and hyperchloremic met acidosis secondary to advanced CKD, started Na bicarb 650mg po bid (5) Type 2 diabetes mellitus with diabetic chronic kidney disease Current Visit: Yes Status: Chronic Plan to address problem: DM management as per primary attending (6) Hypertensive chronic kidney disease with stage 5 chronic kidney disease or end stage renal disease Current Visit: Yes Status: Chronic Plan to address problem: monitor BP on current meds Subjective Date of service: 05/17/19 Principal diagnosis: LOI on CKD Interval history: Pt remains intubated, sedated Objective - Vital Signs Vital signs: Vital Signs - 12hr 05/17/19 05/17/19 05/17/19 06:00 07:00 08:00 Temperature Pulse Rate 81 76 80 Respiratory 20 20 18 Rate Blood Pressure 132/54 128/57 150/66 O2 Sat by Pulse 100 100 95 Oximetry 05/17/19 05/17/19 05/17/19 08:30 09:00 10:00 Temperature Pulse Rate 79 82 82 Respiratory 20 20 Rate Blood Pressure 150/66 161/70 156/67 O2 Sat by Pulse 97 96 94 Oximetry 05/17/19 05/17/19 05/17/19 11:00 11:33 11:35 Temperature 100.4 F H Pulse Rate 89 81 Respiratory 20 Rate Blood Pressure 169/67 168/67 O2 Sat by Pulse 94 95 Oximetry 05/17/19 05/17/19 05/17/19 12:00 13:00 14:00 Temperature Pulse Rate 82 83 87 Respiratory 20 19 17 Rate Blood Pressure 142/64 145/65 160/89 O2 Sat by Pulse 94 93 94 Oximetry 05/17/19 05/17/19 15:00 16:00 Temperature Pulse Rate 78 73 Respiratory 20 12 Rate Blood Pressure 148/65 144/60 O2 Sat by Pulse 96 99 Oximetry - General Appearance General appearance: well-developed, appears stated age, sedated on ventilator, intubated EENT: ATNC, mucous membranes moist Neck: no JVD Respiratory: Present: Decreased Breath Sounds Cardiology: regular, S1S2 Gastrointestinal: normoactive bowel sounds Integumentary: no rash, other (+ edema ) Neurologic: other (intubated, sedated ) - Lab 05/17/19 05:43 05/17/19 05:43 Most recent lab results ABG pH 7.410 pH Units (7.350-7.450) 05/17/19 05:02 ABG pCO2 33.3 mm Hg 05/17/19 05:02 ABG pO2 91.9 mm Hg (80.0-90.0) H 05/17/19 05:02 ABG HCO3 20.6 mmol/L (20.0-26.0) 05/17/19 05:02 ABG O2 Saturation 97.4 % (95.0-99.0) 05/17/19 05:02 Calcium 8.8 mg/dL (8.4-10.2) 05/17/19 05:43 Medications & Allergies - Medications Allergies/Adverse Reactions: Allergies No Known Allergies Allergy (Unverified 05/10/19 15:33) Home Medications: Home Medications Medication Instructions Recorded Confirmed Last Taken Type Aspirin [Adult Aspirin] 81 mg PO DAILY 05/10/19 05/10/19 05/11/19 History Cyanocobalamin (Vitamin B-12) 2,500 mcg PO DAILY 05/10/19 05/10/19 05/11/19 History [Vitamin B12] Ferrous Sulfate [Feosol 325 MG tab] 325 mg PO DAILY 05/10/19 05/10/19 05/11/19 History Gabapentin 100 mg PO TID 05/10/19 05/10/19 05/11/19 History Insulin Aspart (Nf) [NovoLOG 100 10 unit SQ TIDAC 05/10/19 05/10/19 05/11/19 History UNITS/ML VIAL] Insulin Glargine [Lantus VIAL] 36 unit SQ QAM 05/10/19 05/10/19 05/11/19 History Tizanidine HCl [Tizanidine 2mg tab] 2 mg PO DAILY 05/10/19 05/10/19 05/11/19 History Torsemide [Demadex] 20 mg PO BID 05/10/19 05/10/19 05/11/19 History amLODIPine 10 mg PO BID 05/10/19 05/10/19 05/12/19 04:30 History calcitrioL [Rocaltrol] 0.5 mcg PO DAILY 05/10/19 05/10/19 05/11/19 History carvediloL [Coreg] 12.5 mg PO BID 05/10/19 05/10/19 05/12/19 04:30 History oxyCODONE /ACETAMINOPHEN [Percocet 1 tab PO Q6HR PRN #24 tablet 05/12/19 Unknown Rx 5/325 mg] Active Medications: Generic Name Dose Route Start Last Admin Trade Name Keq PRN Reason Stop Dose Admin Acetaminophen 650 mg 05/15/19 23:04 Tylenol PO Q4H PRN Pain MILD(1-3)/Fever >100.5/MELVIN Acetaminophen 650 mg 05/16/19 01:28 05/16/19 01:44 Tylenol [place] 650 mg Q6H PRN Administration Pain, Mild (1-3) Lipase/Protease/Amylase 1 each 05/16/19 11:[address] 10,500 Unit FEEDTUBE PRN PRN For Clogged Feeding Tube Famotidine 20 mg 05/16/19 10:00 05/17/19 09:35 Pepcid IV 20 mg DAILY LUIS M Administration Hydromorphone HCl 0.25 mg 05/15/19 23:04 Dilaudid IV Q3H PRN Pain, Moderate (4-6) Hydrophilic Ointment 1 applic 05/15/19 09:48 Vaseline Lip Therapy TP Q2HR PRN Dry Lips Propofol 1,000 mg in 100 mls @ 2.585 mls/hr 05/15/19 11:00 05/17/19 14:12 Diprivan 10 Mg/Ml IV Infused TITR LUIS M Titration Protocol 5 MCG/KG/MIN Cefepime HCl 1 gm in 100 mls @ 200 mls/hr 05/16/19 10:00 05/17/19 09:35 Cefepime/Ns 1 Gm/100 Ml IV 200 mls/hr Q24HR LUIS M Administration Vancomycin HCl 1,250 mg/ 275 mls @ 166.667 mls/hr 05/17/19 20:00 Sodium Chloride IV 05/17/19 21:38 ONCE ONE Insulin Human Lispro 0 unit 05/16/19 00:00 05/17/19 15:17 Humalog SUB-Q 6 unit Q6HR LUIS M Administration Protocol Metoclopramide HCl 5 mg 05/15/19 23:24 Reglan IV Q6H PRN Nausea And Vomiting Multi-Ingred Cream/Lotion/Oil/Oint 1 applic 05/15/19 09:48 Artificial Tears Ophth Oint OU Q4HR PRN Dry Eye(s) Ondansetron HCl 4 mg 05/15/19 23:04 Zofran IV Q8H PRN Nausea And Vomiting Simple Syrup 15 ml 05/16/19 11:14 Simple Syrup FEEDTUBE PRN PRN Hypoglycemia Simple Syrup 30 ml 05/16/19 11:14 Simple Syrup FEEDTUBE PRN PRN Hypoglycemia Sodium Bicarbonate 325 mg 05/16/19 11:14 Sodium Bicarbonate FEEDTUBE PRN PRN For Clogged Feeding Tube Sodium Bicarbonate 650 mg 05/16/19 22:00 05/17/19 11:12 Sodium Bicarbonate PO Not Given BID LUIS M Sodium Chloride 10 ml 05/16/19 10:00 05/17/19 09:40 Sodium Chloride Flush Syringe 10 Ml IV 10 ml BID LUIS M Administration Sodium Chloride 10 ml 05/15/19 23:04 Sodium Chloride Flush Syringe 10 Ml IV PRN PRN LINE FLUSH
--- NOTE | 2019-05-17 17:48 | Consultation ---
PULMONARY CRITICAL CARE CONSULTATION NOTE CONSULTING PHYSICIAN: Dr. Mcnally. REASON FOR CONSULTATION: Acute hypoxemic respiratory failure, rule out COVID-19. CHIEF COMPLAINT AND HISTORY OF PRESENT ILLNESS: The patient is apparently a 63-year-old -Lao female with past medical history significant amongst other things for a diagnosis of end-stage renal disease, diabetes as well as congestive heart failure, came into the Emergency Room complaining of fever, malaise, drainage from the surgical wound that she apparently had. She is status post surgery on Wednesday after a recent AV graft placement. Her daughter gave the ER physician most of the information. According to her, the patient had been taking some Percocets, but did not take any on the day of presentation and so that could not really explain her mental status. In the Emergency Room, it appears that she decompensated. She was nonresponsive. She was gurgling at the mouth and she was intubated via rapid sequence intubation. After taking further history, a decision was made to rule out for COVID-19 infection and in particular after reviewing the CT scan of the chest, I was asked to assist with management. When I stopped by to see her, she was on mechanical ventilator. She was also on a propofol drip, I believe at 10 mcg per kilogram per minute. She was nonresponsive. I do not have any history of vomiting or overt aspiration. With regards to the patient's tobacco use or abuse, she was described as a never smoker according to the records. This really is as much of the history of presentation as I have. PAST MEDICAL HISTORY: Again significant for hypertension, congestive heart failure, diabetes, gastroesophageal reflux disease; end-stage renal disease and she is obese. PAST SURGICAL HISTORY: Status post AV graft placement about 3-4 days ago. MEDICATIONS: She was on at the time I stopped by to see were reviewed. According to the medication administration record included the following: Tylenol 650 mg p.o. q. 4 hours p.r.n. mild pain or fevers, famotidine 20 mg IV daily, propofol as mentioned above, cefepime 1 gram IV daily, insulin via sliding scale, Reglan 5 mg IV q. 6 hours p.r.n. nausea and vomiting, Zofran 4 mg IV q. 8 hours p.r.n. nausea and vomiting. ALLERGIES: No known drug allergies. DIET: Well-built lady, obese, acute weight loss or gain history unknown. FAMILY AND SOCIAL HISTORY: Apparently lives in the community. No alcohol, tobacco or illicit drug use or abuse. Family history is otherwise unknown. REVIEW OF SYSTEMS: Unobtainable secondary to patient's medical and mental condition. Since she has been here, no gross hematochezia or melena, no gross hematuria, no hematemesis, no bloody tracheal secretions, no witnessed seizures. Review of symptoms is otherwise unobtainable. PHYSICAL EXAMINATION: VITAL SIGNS: On examination at presentation in the Emergency Room review of the vital signs show that the first temperature she was febrile, temperature was 100.3 degrees Fahrenheit rectally, admission, pulse was 107, respiratory rate 26, described as shallow with periods of apneas and blood pressure was 173/84, O2 sats were 100%, inspired oxygen concentration was not recorded. When I stopped by to see her, O2 sats were about 98% that was on the mechanical ventilator, assist control mode of ventilation, AC PRVC rate of 20, PEEP of 6, tidal volume of 450 and FiO2 at that time was 40%. GENERAL: Elderly looking -Lao female, normocephalic, intubated on the mechanical ventilator without significant patient ventilator dyssynchrony. HEAD, EARS, NOSE AND THROAT: She was anicteric. No conjunctival erythema. Oropharynx was moist. ET tube was taped at the lips, around 23 cm. No gross jugular venous distention. No thyromegaly. Neck was supple. Grossly, there were no palpable lymph nodes in the supraclavicular or submandibular lymph node chains. LUNGS: Auscultation of both lung valerio significant for diminished bilateral breath sounds, bibasilar inspiratory rales. No active wheezing. HEART: Sounds 1 and 2 were heard at the time of my evaluation, regular rate and rhythm without overt rubs or murmurs. ABDOMEN: Soft, full, bowel sounds are positive, nontender. No palpable hepatosplenomegaly. EXTREMITIES: Without overt digital clubbing. No cyanosis. No edema to her lower extremities. She had minimal edema to the left upper extremity without erythema and no induration or purulence. Her aim appeared to be intact. Pedal pulses were 2+ bilaterally. NEUROLOGIC: She was sedated. Pupils were equal, round, about 2 mm. Extraocular muscles and movements could not be assessed. She was sluggishly reactive to light. She was not moving any extremities or following commands at the time I saw her. SKIN: Normal turgor without overt cellulitis or rash in the areas examined. Please see the wound care nurse's notes for full details of her skin. PSYCHIATRIC: Mood and affect could not be evaluated. They were flat. She was sedated. LABORATORY DATA: From my review is as follows: Admission white cell count 11,900, hemoglobin 9.3, hematocrit 30.1, platelet count was 219. No manual differential. Arterial blood gas showed pH of 7.42, pCO2 of 37, pO2 of 213 on the mechanical ventilator at that time, 30% FiO2. Serum sodium was 136, potassium 4.1, chloride 99, bicarbonate 15, BUN 74, creatinine 5.8, glucose was 267. Lactic acid level was 3.5. BNP was elevated. Liver function tests essentially within normal limits. Urinalysis was negative for nitrites and leukocyte esterase. Tylenol and aspirin levels were within normal limits. Two sets of blood cultures were sent to the lab, no growth to date. Tracheal aspirate is pending. She had a CT scan of her head in the Emergency Room. CT of the brain was reported as no acute process. A CT of the abdomen and pelvis was also done and the impression, no evidence of focal inflammatory change within the abdomen or pelvis. A CT of the chest was also done. I have reviewed the images as well as the radiologist's interpretation. Mediastinal windows do not show significant mediastinal adenopathy. Lung windows show bilateral pleural effusions, patchy areas of ground glass opacification, but also some possible seeding at the tips of blood vessels and I must admit one cannot rule out COVID infection and this may end up being a sign of COVID pulmonary involvement. No gross pneumothorax. No gross bony factor. ASSESSMENT: 1. Acute hypoxemic respiratory failure, on mechanical ventilatory support. 2. Bilateral pneumonia. 3. Bilateral pulmonary edema. 4. Bilateral pleural effusions. 5. Sepsis syndrome. 6. Possible COVID-19 infection. 7. End-stage renal disease, on dialysis. 8. Acute toxic metabolic encephalopathy. 9. Diabetes type 2. 10. History of congestive heart failure. 11. History of hypertension. 12. Oropharyngeal dysphagia. 13. Gastroesophageal reflux disease. PLAN: An infectious Disease consultation has been placed. I do agree with empiric broad-spectrum antibiotic coverage. These will be deescalated based on results of clinical and microbiologic data. Other markers including CRP level, procalcitonin levels, lactic acid levels will be trended to aid clinical decision making. She will be kept on mechanical ventilatory support at this time. I will adjust the minute ventilation to keep the pH within the appropriate range. We will look to hemodialysis with ultrafiltration for toxin and volume management. Ventilator-associated pneumonia bundle has been instituted including aspiration precautions, head of bed about 40 be degrees or greater. Bronchodilators and pulmonary hygiene will be per the respiratory therapist. Oxygen will be weaned to keep sats greater than or equal to about 90%. Enteral nutrition will be the feeding modality of choice. Vascular Surgery consultation has been placed to evaluate the AV graft, but the graft itself does not look like there is significant infection going on. Mobility protocols will be instituted for pressure ulcer prophylaxis. She is appropriately on GI prophylaxis. She will be placed on DVT prophylaxis, currently now on SCDs. Flu and pneumonia vaccination will be addressed per protocol. Thank you very much for the consult. She is critically ill on life-sustaining interventions including mechanical ventilatory support, at high risk of decompensation including the risk of . I should mention sedation will be titrated to keep her RASS scale of 0 to -1. We will follow along. We will make further recommendations as picture progresses/becomes clearer. Again, at this time, I spent about 35-40 minutes of critical care time without overlap and excluding any procedural time that may be necessary. JOB# [id number] KATHLEEN/CESAR GARCIA
[2019-05-17] MEDS ORDERED: VANCOMYCIN 1,250 MG in SODIUM CHLORIDE 0.9% 250ML 250 ML IV ONE (20:00)
[2019-05-18] MEDS: INSULIN LISPRO 100 UNIT/ML SUB-Q SCH ×4 (00:04→18:53)
[2019-05-18] MEDS: SODIUM BICARBONATE 650 MG TAB PO SCH ×3 (00:05→21:15)
[2019-05-18 05:25] LABS: ABG Base Excess -2.9 mmol/L (-2.0-3.0); ABG HCO3 21.7 mmol/L (20.0-26.0); ABG Methemoglobin 0.6 % (0.0-1.5); ABG Oxygen Saturation 98.6 % (95.0-99.0); ABG PCO2 36.7 mm Hg; ABG PH 7.39 pH Units (7.350-7.450)
--- NOTE | 2019-05-18 09:34 | Progress Note ---
Subjective Date of service: 05/18/19 Principal diagnosis: LOI on CKD Interval history: Patient with recent left arm AV graft insertion this past Wednesday Recent hemodialysis duplex scan demonstrates patent graft with appropriate flow volumes and with minimal fluid noted at the venous anastomosis Incisions are clean dry and intact with ami, no erythema noted Left arm is warm and well-perfused with no edema or induration noted Patient remains intubated with moderate settings Patient is alert but not following commands Patient remains hemodynamically stable with normal white count on IV antibiotics No purulent drainage noted from incision sites No evidence of graft infection given patient's current clinical picture Patient's clinical picture likely related to infectious pulmonary source We will continue to follow peripherally, no interventions warranted at this time Objective - Constitutional Vitals: Vital Signs - 12hr 05/17/19 05/17/19 05/17/19 21:30 21:46 22:00 Temperature Pulse Rate 74 78 79 Respiratory 20 20 21 Rate Blood Pressure 121/55 121/55 121/55 O2 Sat by Pulse 100 100 100 Oximetry 05/17/19 05/17/19 05/17/19 22:15 22:16 22:30 Temperature 99.7 F H Pulse Rate 79 82 Respiratory 20 20 Rate Blood Pressure 121/49 105/45 O2 Sat by Pulse 100 100 Oximetry 05/17/19 05/17/19 05/18/19 22:39 23:47 00:00 Temperature 99.4 F Pulse Rate 76 Respiratory 20 Rate Blood Pressure 105/45 O2 Sat by Pulse 100 100 Oximetry 05/18/19 05/18/19 05/18/19 01:17 02:00 03:17 Temperature Pulse Rate 73 74 Respiratory 20 18 Rate Blood Pressure O2 Sat by Pulse 98 100 99 Oximetry 05/18/19 05/18/19 05/18/19 03:20 03:30 03:40 Temperature Pulse Rate 78 79 81 Respiratory 16 20 20 Rate Blood Pressure 131/56 O2 Sat by Pulse 98 99 99 Oximetry 05/18/19 05/18/19 05/18/19 03:47 03:50 04:00 Temperature 99.3 F Pulse Rate 77 84 82 Respiratory 20 20 Rate Blood Pressure 105/48 99/54 O2 Sat by Pulse 99 100 Oximetry 05/18/19 05/18/19 05/18/19 04:10 04:20 04:30 Temperature Pulse Rate 80 77 81 Respiratory 20 20 14 Rate Blood Pressure 101/53 98/53 98/53 O2 Sat by Pulse 99 99 99 Oximetry 05/18/19 05/18/19 05/18/19 04:31 04:40 04:50 Temperature Pulse Rate 80 83 Respiratory 20 20 21 Rate Blood Pressure 133/60 99/54 O2 Sat by Pulse 100 99 97 Oximetry 05/18/19 05/18/19 05/18/19 05:00 05:10 05:20 Temperature Pulse Rate 87 Respiratory 24 Rate Blood Pressure 99/54 152/55 125/53 O2 Sat by Pulse 95 95 98 Oximetry 05/18/19 05/18/19 05/18/19 05:30 05:40 05:50 Temperature Pulse Rate 85 85 84 Respiratory 22 20 20 Rate Blood Pressure 135/55 125/53 136/56 O2 Sat by Pulse 96 96 96 Oximetry 05/18/19 05/18/19 05/18/19 06:00 06:10 06:20 Temperature Pulse Rate 82 83 83 Respiratory 18 20 20 Rate Blood Pressure 136/56 135/55 123/50 O2 Sat by Pulse 94 95 94 Oximetry 05/18/19 05/18/19 05/18/19 06:30 06:40 06:50 Temperature Pulse Rate 82 78 84 Respiratory 19 19 20 Rate Blood Pressure 135/53 135/53 131/53 O2 Sat by Pulse 95 95 96 Oximetry 05/18/19 05/18/19 05/18/19 07:00 07:15 07:30 Temperature Pulse Rate 86 84 83 Respiratory 21 20 20 Rate Blood Pressure 128/53 136/55 136/53 O2 Sat by Pulse 94 95 96 Oximetry 05/18/19 05/18/19 05/18/19 07:46 08:00 08:15 Temperature 98.9 F Pulse Rate 86 82 81 Respiratory 21 20 20 Rate Blood Pressure 129/53 129/54 131/57 O2 Sat by Pulse 95 96 97 Oximetry 05/18/19 05/18/19 08:30 08:31 Temperature Pulse Rate 82 Respiratory 18 22 Rate Blood Pressure 129/54 O2 Sat by Pulse 97 97 Oximetry - Labs CBC & Chem 7: 05/17/19 05:43 05/17/19 05:43 Labs: Abnormal lab results 05/17/19 05/17/19 05/18/19 Range/Units 15:15 18:44 00:04 ABG pO2 (80.0-90.0) mm Hg ABG Base Excess (-2.0-3.0) mmol/L ABG Hemoglobin (12.0-16.0) gm/dl POC Glucose 302 H 258 H 331 H (70-105) 05/18/19 05/18/19 Range/Units 05:35 Unknown ABG pO2 133.0 H (80.0-90.0) mm Hg ABG Base Excess -2.9 L (-2.0-3.0) mmol/L ABG Hemoglobin 8.3 L (12.0-16.0) gm/dl POC Glucose 329 H (70-105) Medications & Allergies - Medications Allergies/Adverse Reactions: Allergies No Known Allergies Allergy (Unverified 05/10/19 15:33) Home Medications: Home Medications Medication Instructions Recorded Confirmed Last Taken Type Aspirin [Adult Aspirin] 81 mg PO DAILY 05/10/19 05/10/19 05/11/19 History Cyanocobalamin (Vitamin B-12) 2,500 mcg PO DAILY 05/10/19 05/10/19 05/11/19 History [Vitamin B12] Ferrous Sulfate [Feosol 325 MG tab] 325 mg PO DAILY 05/10/19 05/10/19 05/11/19 History Gabapentin 100 mg PO TID 05/10/19 05/10/19 05/11/19 History Insulin Aspart (Nf) [NovoLOG 100 10 unit SQ TIDAC 05/10/19 05/10/19 05/11/19 History UNITS/ML VIAL] Insulin Glargine [Lantus VIAL] 36 unit SQ QAM 05/10/19 05/10/19 05/11/19 History Tizanidine HCl [Tizanidine 2mg tab] 2 mg PO DAILY 05/10/19 05/10/19 05/11/19 History Torsemide [Demadex] 20 mg PO BID 05/10/19 05/10/19 05/11/19 History amLODIPine 10 mg PO BID 05/10/19 05/10/19 05/12/19 04:30 History calcitrioL [Rocaltrol] 0.5 mcg PO DAILY 05/10/19 05/10/19 05/11/19 History carvediloL [Coreg] 12.5 mg PO BID 05/10/19 05/10/19 05/12/19 04:30 History oxyCODONE /ACETAMINOPHEN [Percocet 1 tab PO Q6HR PRN #24 tablet 05/12/19 Unknown Rx 5/325 mg] Active Medications: Generic Name Dose Route Start Last Admin Trade Name Freq PRN Reason Stop Dose Admin Acetaminophen 650 mg 05/15/19 23:04 Tylenol PO Q4H PRN Pain MILD(1-3)/Fever >100.5/MELVIN Acetaminophen 650 mg 05/16/19 01:28 05/16/19 01:44 Tylenol RI 650 mg Q6H PRN Administration TEMP > 100.3 Lipase/Protease/Amylase 1 each 05/16/19 11:[address] 10,500 Unit FEEDTUBE PRN PRN For Clogged Feeding Tube Famotidine 20 mg 05/18/19 10:00 Pepcid PO DAILY LUIS M Hydromorphone HCl 0.25 mg 05/15/19 23:04 Dilaudid IV Q3H PRN Pain, Moderate (4-6) Hydrophilic Ointment 1 applic 05/15/19 09:48 Vaseline Lip Therapy TP Q2HR PRN Dry Lips Propofol 1,000 mg in 100 mls @ 2.585 mls/hr 05/15/19 11:00 05/17/19 17:51 Diprivan 10 Mg/Ml IV 35 mcg/kg/min TITR LUIS M 18.098 mls/hr Administration Protocol 5 MCG/KG/MIN Cefepime HCl 1 gm in 100 mls @ 200 mls/hr 05/16/19 10:00 05/17/19 09:35 Cefepime/Ns 1 Gm/100 Ml IV 05/19/19 23:59 200 mls/hr Q24HR LUIS M Administration Insulin Human Lispro 0 unit 05/16/19 00:00 05/18/19 05:32 Humalog SUB-Q 6 unit Q6HR LUIS M Administration Protocol Metoclopramide HCl 5 mg 05/15/19 23:24 Reglan IV Q6H PRN Nausea And Vomiting Multi-Ingred Cream/Lotion/Oil/Oint 1 applic 05/15/19 09:48 Artificial Tears Ophth Oint OU Q4HR PRN Dry Eye(s) Ondansetron HCl 4 mg 05/15/19 23:04 Zofran IV Q8H PRN Nausea And Vomiting Simple Syrup 15 ml 05/16/19 11:14 Simple Syrup FEEDTUBE PRN PRN Hypoglycemia Simple Syrup 30 ml 05/16/19 11:14 Simple Syrup FEEDTUBE PRN PRN Hypoglycemia Sodium Bicarbonate 325 mg 05/16/19 11:14 Sodium Bicarbonate FEEDTUBE PRN PRN For Clogged Feeding Tube Sodium Bicarbonate 650 mg 05/16/19 22:00 05/18/19 00:05 Sodium Bicarbonate PO Not Given BID LUIS M Sodium Chloride 10 ml 05/16/19 10:00 05/18/19 00:05 Sodium Chloride Flush Syringe 10 Ml IV Not Given BID LUIS M Sodium Chloride 10 ml 05/15/19 23:04 Sodium Chloride Flush Syringe 10 Ml IV PRN PRN LINE FLUSH
[2019-05-18] MEDS: CEFEPIME/NS 1 GM/100 ML 1 GM/100 ML BAG IV SCH (10:05)
[2019-05-18] MEDS: FAMOTIDINE 20 MG TAB PO SCH (10:05)
--- NOTE | 2019-05-18 11:45 | Progress Note ---
Assessment and Plan Cultures: Blood culture 05/15/2019 no growth to date Sputum culture no growth A/P: 63 y/o female with history of ESRD s/p AV graft placement 3 days before admission, admitted on 05/15/2019 for fever and drainage from the left upper extremity graft site as well as cough with whezzing and fever 102: #Severe sepsis: fever better; likely due to COVID pneumonia +/- AVG infection (per vascular not infected - duplex scan demonstrates patent graft with appropriate flow volumes and with minimal fluid noted at the venous anastomosis) #Acute Acute Respiratory Failure: intubated, due to pneumonia #Severe COVID pneumonia: COVID test positive. Doubt current cytokine release syndrome secondary to COVID as ferritin is normal. CT chest shows bilateral diffuse ground glass opacities. #DM: uncontrolled #ESRD on HD Recs: Start hydroxychloroquine 400 mg po BID x 1 day then 200 mg po x 4 days bid total 5 days Add zinc 220 mg po q day ContinueCOVID isolationprecautions per [facility] protocol Continue cefepime day 4 of 5 Stop vancomycin Obtain Ferritin, LDH, D-Dimer, CRP today Will follow Lou Bettencourt MD Infectious Diseases Supervisor [employer] [facility] ([facility]) M [phone] O [phone] Subjective Date of service: 05/18/19 Principal diagnosis: LOI on CKD Interval history: Remains with low grade fever intubated Objective - Exam Narrative Exam: Constitutional: Intubated, sedated FiO2 50% p6 Head, Ears, Nose:limited due to lack of PPE Oral: Endotracheal tube Cardiovascular: Limited evaluation due to PPE shortage Respiratory: Limited evaluation due to PPE shortage GI: Limited evaluation due to PPE shortage Musculoskeletal: Limited evaluation due to PPE shortage Skin: right arm AVG with edema, erythema and heat Neurological: Sedated - Constitutional Vitals: Vital Signs Temp Pulse Resp BP Pulse Ox 98.9 F 82 22 129/54 97 05/18/19 08:00 05/18/19 08:30 05/18/19 08:31 05/18/19 08:30 05/18/19 08:31 Temperature -Last 24 Hours Temperature 98.9 F Temperature 99.3 F Temperature 99.4 F Temperature 99.7 F - Labs CBC & Chem 7: 05/17/19 05:43 05/17/19 05:43 Labs: Abnormal lab results 05/17/19 05/17/19 05/18/19 Range/Units 15:15 18:44 00:04 ABG pO2 (80.0-90.0) mm Hg ABG Base Excess (-2.0-3.0) mmol/L ABG Hemoglobin (12.0-16.0) gm/dl POC Glucose 302 H 258 H 331 H (70-105) 05/18/19 05/18/19 Range/Units 05:35 Unknown ABG pO2 133.0 H (80.0-90.0) mm Hg ABG Base Excess -2.9 L (-2.0-3.0) mmol/L ABG Hemoglobin 8.3 L (12.0-16.0) gm/dl POC Glucose 329 H (70-105)
[2019-05-18] MEDS: ZINC SULFATE 220 MG CAP PO SCH (11:50)
[2019-05-18 11:53] LABS: BUN/Creatinine Ratio 16; Blood Urea Nitrogen 99 mg/dL (7-17); Calcium 8.6 mg/dL (8.4-10.2); Hemolysis Index 10
[2019-05-18 11:55] LABS: Alanine Aminotransferase < 5 units/L (7-56)
--- NOTE | 2019-05-18 12:19 | Progress Note ---
Assessment and Plan Assessment and plan: --Covid-19 confirmed Covid19 paperwork completed by ED F/U ferritin, LDH, D-Dimer and CRP --Acute hypoxic respiratory failure; requiring intubation On ventilatory support, nebulizers Supportive care, pulmonary critical following Wean as tolerated per pulm --Bilateral patchy groundglass opacities/pneumonia Isolation precautions, cultures ID following --Acute metabolic encephalopathy; Present on admission, probably secondary to hypoxemia --Infected AV graft for dialysis; IV antibiotics, vascular,ID following --End-stage renal disease on hemodialysis; HD per schedulen nephrology following --Type 2 diabetes mellitus; moderate control Accu-Chek sliding scale coverage ADA diet and insulin as needed HbA1c 7.7 --Moderate malnutrition/hypoalbuminemia Due to underlying disease process, nutrition supplements Nutrition consult as needed --Lactic acidosis; rule out infections Supportive care --DVT prophylaxis; Lovenox --Obesity BMI 31.6; Patient needs weight reduction when medically stable --Full CODE STATUS; Monitor closely and adjust management as needed Very poor prognosis Plan of care reviewed with the patient's nurse 05/18/2019 Covid-19 confirmed Patient is critically ill with poor prognosis. Wean as tolerated per pulmonary. Patient currently with AC mode, rate20, tidal volume 450, FiO2 50% and PEEP 6. Continue hydroxychloroquine 400 mg p.o. twice daily x1 day then 200 mg p.o. x 4 twice daily for 5 days. Continue cefepime per ID. Follow-up inflammatory markers of ferritin, LDH, d-dimer and CRP. The high probability of a clinically significant, sudden or life threatening deterioration of the [immunologic and respiratory] system(s) required my full and direct attention, intervention and personal management. The aggregate critical care time was [32] minutes. This time is in addition to time spent performing reported procedures but includes the following: [x] Data Review and interpretation [x] Patient assessment and monitoring of vital signs [x] Documentation [x] Medication orders and management History Interval history: No new issues overnight. Hospitalist Physical - Constitutional Vitals: Temp Pulse Resp BP Pulse Ox 98.9 F 82 22 141/60 98 05/18/19 08:00 05/18/19 10:50 05/18/19 08:31 05/18/19 10:50 05/18/19 10:50 General appearance: Present: no acute distress, other (Currently on a ventilator and sedated) - EENT Eyes: Present: PERRL, EOM intact ENT: hearing intact, clear oral mucosa, dentition normal - Neck Neck: Present: supple, normal ROM - Respiratory Respiratory effort: normal Respiratory: bilateral: CTA - Cardiovascular Rhythm: regular Heart Sounds: Present: S1 & S2. Absent: gallop, rub - Extremities Extremities: no ischemia, No edema, Full ROM - Abdominal General gastrointestinal: soft, non-tender, non-distended, normal bowel sounds - Integumentary Integumentary: Present: clear, warm, dry - Neurologic Neurologic: CNII-XII intact, moves all extremities Results - Labs CBC & Chem 7: 05/17/19 05:43 05/18/19 11:15 Labs: Laboratory Last Values WBC 8.2 K/mm3 (4.5-11.0) 05/17/19 05:43 RBC 3.06 M/mm3 (3.65-5.03) L 05/17/19 05:43 Hgb 8.6 gm/dl (10.1-14.3) L 05/17/19 05:43 Hct 26.1 % (30.3-42.9) L D 05/17/19 05:43 MCV 85 fl (79-97) 05/17/19 05:43 MCH 28 pg (28-32) 05/17/19 05:43 MCHC 33 % (30-34) 05/17/19 05:43 RDW 14.2 % (13.2-15.2) 05/17/19 05:43 Plt Count 230 K/mm3 (140-440) 05/17/19 05:43 Lymph % (Auto) 6.4 % (13.4-35.0) L 05/17/19 05:43 [place] % (Auto) 4.9 % (0.0-7.3) 05/17/19 05:43 Eos % (Auto) 0.9 % (0.0-4.3) 05/17/19 05:43 Baso % (Auto) 0.3 % (0.0-1.8) 05/17/19 05:43 Lymph # 0.5 K/mm3 (1.2-5.4) L 05/17/19 05:43 [place] # 0.4 K/mm3 (0.0-0.8) 05/17/19 05:43 Eos # 0.1 K/mm3 (0.0-0.4) 05/17/19 05:43 Baso # 0.0 K/mm3 (0.0-0.1) 05/17/19 05:43 Seg Neutrophils % 87.5 % (40.0-70.0) H 05/17/19 05:43 Seg Neutrophils # 7.2 K/mm3 (1.8-7.7) 05/17/19 05:43 ABG pH 7.390 pH Units (7.350-7.450) 05/18/19 Unknown ABG pCO2 36.7 mm Hg 05/18/19 Unknown ABG pO2 133.0 mm Hg (80.0-90.0) H 05/18/19 Unknown ABG HCO3 21.7 mmol/L (20.0-26.0) 05/18/19 Unknown ABG O2 Saturation 98.6 % (95.0-99.0) 05/18/19 Unknown ABG O2 Content 11.5 (0.0-44) 05/18/19 Unknown ABG Base Excess -2.9 mmol/L (-2.0-3.0) L 05/18/19 Unknown ABG Hemoglobin 8.3 gm/dl (12.0-16.0) L 05/18/19 Unknown ABG Carboxyhemoglobin 1.2 % (0.0-5.0) 05/18/19 Unknown ABG Methemoglobin 0.6 % (0.0-1.5) 05/18/19 Unknown Oxyhemoglobin 96.8 % (95.0-99.0) 05/18/19 Unknown FiO2 60 % 05/18/19 Unknown Sodium 146 mmol/L (137-145) H 05/18/19 11:15 Potassium 3.6 mmol/L (3.6-5.0) 05/18/19 11:15 Chloride 105.0 mmol/L (98-107) 05/18/19 11:15 Carbon Dioxide 18 mmol/L (22-30) L 05/18/19 11:15 Anion Gap 27 mmol/L 05/18/19 11:15 BUN 99 mg/dL (7-17) H 05/18/19 11:15 Creatinine 6.1 mg/dL (0.7-1.2) H 05/18/19 11:15 Estimated GFR 8 ml/min 05/18/19 11:15 BUN/Creatinine Ratio 16 % 05/18/19 11:15 Glucose 346 mg/dL (65-100) H 05/18/19 11:15 POC Glucose 329 (70-105) H 05/18/19 05:35 Hemoglobin A1c 7.7 % (4-6) H 05/15/19 Unknown Lactic Acid 1.40 mmol/L (0.7-2.0) 05/15/19 11:41 Calcium 8.6 mg/dL (8.4-10.2) 05/18/19 11:15 Ferritin 975.6 ng/mL (13.0-400.0) H 05/18/19 11:15 Total Bilirubin 0.30 mg/dL (0.1-1.2) 05/18/19 11:15 AST 37 units/L (5-40) 05/18/19 11:15 ALT < 5 units/L (7-56) L 05/18/19 11:15 Alkaline Phosphatase 56 units/L (35-129) 05/18/19 11:15 Lactate Dehydrogenase 483 units/L (91-180) H 05/18/19 11:15 NT-Pro-B Natriuret Pep 7240 pg/mL (0-900) H 05/15/19 09:11 Total Protein 6.8 g/dL (6.3-8.2) 05/18/19 11:15 Albumin 3.0 g/dL (3.9-5) L 05/18/19 11:15 Albumin/Globulin Ratio 0.8 % 05/18/19 11:15 Urine Color Straw (Yellow) 05/15/19 12:07 Urine Turbidity Clear (Clear) 05/15/19 12:07 Urine pH 7.0 (5.0-7.0) 05/15/19 12:07 Ur Specific [place] 1.009 (1.003-1.030) 05/15/19 12:07 Urine Protein 100 mg/dl mg/dL (Negative) 05/15/19 12:07 Urine Glucose (UA) >=500 mg/dL (Negative) 05/15/19 12:07 Urine Ketones Neg mg/dL (Negative) 05/15/19 12:07 Urine Blood Sm (Negative) 05/15/19 12:07 Urine Nitrite Neg (Negative) 05/15/19 12:07 Urine Bilirubin Neg (Negative) 05/15/19 12:07 Urine Urobilinogen < 2.0 mg/dL (<2.0) 05/15/19 12:07 Ur Leukocyte Esterase Neg (Negative) 05/15/19 12:07 Urine WBC (Auto) 3.0 /HPF (0.0-6.0) 05/15/19 12:07 Urine RBC (Auto) 18.0 /HPF (0.0-6.0) 05/15/19 12:07 Urine Mucus Few /HPF 05/15/19 12:07 Random Vancomycin 11.9 ug/mL (0-40.0) 05/17/19 14:57 Salicylates < 0.3 mg/dL (2.8-20.0) L 05/15/19 13:10 Acetaminophen < 5.0 ug/mL (10.0-30.0) L 05/15/19 13:10 Microbiology: Microbiology 05/15/19 Unknown Peripheral/Venous Blood Culture - Preliminary NO GROWTH AFTER 72 HOURS 05/15/19 Unknown Peripheral/Venous Blood Culture - Preliminary NO GROWTH AFTER 72 HOURS Castellanos/IV: Voiding Method Indwelling Catheter IV Catheter Type [Left INT / Saline Lock External Jugular] IV Catheter Type [Right Wrist] INT / Saline Lock IV Catheter Type [Right INT / Saline Lock External Jugular] Active Medications - Current Medications Current Medications: Generic Name Dose Route Start Last Admin Trade Name Freq PRN Reason Stop Dose Admin Acetaminophen 650 mg 05/15/19 23:04 Tylenol PO Q4H PRN Pain MILD(1-3)/Fever >100.5/MELVIN Acetaminophen 650 mg 05/16/19 01:28 05/16/19 01:44 Tylenol [place] 650 mg Q6H PRN Administration TEMP > 100.3 Lipase/Protease/Amylase 1 each 05/16/19 11:[address] 10,500 Unit FEEDTUBE PRN PRN For Clogged Feeding Tube Famotidine 20 mg 05/18/19 10:00 05/18/19 10:05 Pepcid PO 20 mg DAILY LUIS M Administration Hydromorphone HCl 0.25 mg 05/15/19 23:04 Dilaudid IV Q3H PRN Pain, Moderate (4-6) Hydrophilic Ointment 1 applic 05/15/19 09:48 Vaseline Lip Therapy TP Q2HR PRN Dry Lips Hydroxychloroquine Sulfate 400 mg 05/18/19 11:00 Plaquenil PO 05/18/19 22:01 BID LUIS M Hydroxychloroquine Sulfate 200 mg 05/19/19 10:00 Plaquenil PO 05/22/19 22:01 BID LUIS M Propofol 1,000 mg in 100 mls @ 2.585 mls/hr 05/15/19 11:00 05/17/19 17:51 Diprivan 10 Mg/Ml IV 35 mcg/kg/min TITR LUIS M 18.098 mls/hr Administration Protocol 5 MCG/KG/MIN Cefepime HCl 1 gm in 100 mls @ 200 mls/hr 05/16/19 10:00 05/18/19 10:05 Cefepime/Ns 1 Gm/100 Ml IV 05/19/19 23:59 200 mls/hr Q24HR LUIS M Administration Insulin Human Lispro 0 unit 05/16/19 00:00 05/18/19 05:32 Humalog SUB-Q 6 unit Q6HR LUIS M Administration Protocol Metoclopramide HCl 5 mg 05/15/19 23:24 Reglan IV Q6H PRN Nausea And Vomiting Multi-Ingred Cream/Lotion/Oil/Oint 1 applic 05/15/19 09:48 Artificial Tears Ophth Oint OU Q4HR PRN Dry Eye(s) Ondansetron HCl 4 mg 05/15/19 23:04 Zofran IV Q8H PRN Nausea And Vomiting Simple Syrup 15 ml 05/16/19 11:14 Simple Syrup FEEDTUBE PRN PRN Hypoglycemia Simple Syrup 30 ml 05/16/19 11:14 Simple Syrup FEEDTUBE PRN PRN Hypoglycemia Sodium Bicarbonate 325 mg 05/16/19 11:14 Sodium Bicarbonate FEEDTUBE PRN PRN For Clogged Feeding Tube Sodium Bicarbonate 650 mg 05/16/19 22:00 05/18/19 10:06 Sodium Bicarbonate PO 650 mg BID LUIS M Administration Sodium Chloride 10 ml 05/16/19 10:00 05/18/19 10:06 Sodium Chloride Flush Syringe 10 Ml IV 10 ml BID LUIS M Administration Sodium Chloride 10 ml 05/15/19 23:04 Sodium Chloride Flush Syringe 10 Ml IV PRN PRN LINE FLUSH Zinc Sulfate 220 mg 05/18/19 11:00 05/18/19 11:50 Zinc Sulfate PO 220 mg DAILY LUIS M Administration Nutrition/Malnutrition Assess - Dietary Evaluation Nutrition/Malnutrition Findings: Nutrition Notes Start: 05/16/19 08:31 Freq: Status: Active Protocol: Document 05/18/19 09:22 LM (Rec: 05/18/19 09:30 LM [id number]) Nutrition Notes Initial or Follow up Reassessment Current Diagnosis CKD (stage V CKD),Diabetes, Hypertension,Respiratory Failure Other Pertinent Diagnosis AV graft infection, fever, suspected COVID-19 Current Diet Nepro 1.8 at 35ml/hr Labs/Tests POC glu 329 Pertinent Medications Humalog Height 5 ft 5 in Weight 81.8 kg [place] Body Weight (kg) 56.81 BMI 29.9 Weight change and time frame wt change noted Weight Status Obese Subjective/Other Information Nepro running at 35ml/hr and pt is tolerating TF. 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 Yes Is Patient Ambulatory and/or Out of Bed No REE-([facility]-confined to bed) 4537.453 Calculation Used for Recommendations [facility] Additional Notes Protein: 114g (>/=2g/kg using IBW 57kg) Fluid: per MD Nutrition Intervention Change Diet Order: TF Nutrition Support: Change to Nepro 1.8 at 45ml/hr Flush 200 ml q4h Kcal 1,944 Protein (gm) 87 Fluid (mL) 785 Goal #1 TF tolerance Goal #2 Meet at least 75% of energy and protein needs via TF Anticipated Discharge Needs: unable to determine at this time Follow-Up By: 05/22/19 Additional Comments F/U for TF tolerance, rate
[2019-05-18] MEDS: HYDROXYCHLOROQUINE 200 MG TAB PO SCH ×2 (14:07→21:15)
--- NOTE | 2019-05-18 14:13 | Progress Note ---
Assessment and Plan Acute hypoxemic respiratory failure orally intubated on MVS COVID 19 POSITIVE Bilateral pneumonia Oropharyngeal dysphagia Acute metabolic encephalopathy Infected AV graft for dialysis; ESRD on HD Type 2 diabetes mellitus; moderate control Lactic acidosis, present on admission Hypernatremia -Continue with MVS, Lung protective strategies, monitor airway pressures -VAP bundle addressed -Continue aspiration precautions, HOB>40 -Continue daily assessment for readiness for SBT -Continue Stress ulcer prophylaxis -Continue VTE prophylaxis -Supportive transfusions as indicated to keep HgB >7g/dL -Continue enteric nutritional support at goal rate. Monitor glycemic control, with target blood glucose 140-180 mg/dL while critically ill. -Avoid hypoglycemia- Poor glycemic control, add lantus insulin at 10 units daily and monitor blood glucose -Increase free water flushes to treat hypernatremia. MOnitor - Continue to wean supplemental oxygen for target O2 sats > 90% -ABG and CXR in am -On hydroxychloroquine 400 mg po BID x 1 day then 200 mg po x 4 days bid total 5 days - F/U ferritin, LDH, D-Dimer and CRP -ContinueCOVID isolationprecautions per [facility] protocol -Continue Cefepime day 4 of 5 , complete course ID following -Continue thiamine, multivitamin and electrolyte replacement -Continue to avoid nephrotoxins, adjust all medications for GFR and CrCL -Supportive HD per renal service - Continue bronchodilators with pulmonary hygiene - Continue prn analgesia per CPOT score - Continue to maintain of sleep-wake cycle, avoid delirium - PT/OT/ROM exercises - Continue mobility protocol , off loading and skin assessment per protocol for pressure ulcer prevention - continue other care per attending / other consultants CONDITION: CRITICAL PROGNOSIS: GUARDED CODE STATUS: FULL CODE The high probability of a clinically significant, sudden or life-threatening deterioration of the [respiratory, renal, Neurology] system(s) required my full and direct attention, intervention and personal management. The aggregate critical care time was [31] minutes without overlap. Time includes spent on; [x] Data Review and interpretation [x] Patient assessment and monitoring of vital signs [x] Documentation [x] Medication orders and management Subjective Date of service: 05/18/19 Principal diagnosis: LOI on CKD Interval history: Patient is seen today for: Acute hypoxemic respiratory failure orally intubated on MVS;COVID 19 POSITIVE;Bilateral pneumonia;Oropharyngeal dysphagia ;Acute metabolic encephalopathy Seen and examined at bedside; 24hour events reviewed; nursing and respiratory care staff consulted; no adverse overnight events reported to me; Vitals, labs, medications, chart reviewed. On gong fevers, off Propofol and remains calm. Orally intubated on MVS AC-VC 20/450/6/60% ABG 7.39/37/133/21.7 12 lead EKG today QTc <500 Objective Vital Signs - 12hr 05/18/19 05/18/19 05/18/19 03:17 03:20 03:30 Temperature Pulse Rate 74 78 79 Respiratory 18 16 20 Rate Blood Pressure O2 Sat by Pulse 99 98 99 Oximetry 05/18/19 05/18/19 05/18/19 03:40 03:47 03:50 Temperature Pulse Rate 81 77 84 Respiratory 20 20 Rate Blood Pressure 131/56 105/48 O2 Sat by Pulse 99 99 Oximetry 05/18/19 05/18/19 05/18/19 04:00 04:10 04:20 Temperature 99.3 F Pulse Rate 82 80 77 Respiratory 20 20 20 Rate Blood Pressure 99/54 101/53 98/53 O2 Sat by Pulse 100 99 99 Oximetry 05/18/19 05/18/19 05/18/19 04:30 04:31 04:40 Temperature Pulse Rate 81 80 Respiratory 14 20 20 Rate Blood Pressure 98/53 133/60 O2 Sat by Pulse 99 100 99 Oximetry 05/18/19 05/18/19 05/18/19 04:50 05:00 05:10 Temperature Pulse Rate 83 87 Respiratory 21 24 Rate Blood Pressure 99/54 99/54 152/55 O2 Sat by Pulse 97 95 95 Oximetry 05/18/19 05/18/19 05/18/19 05:20 05:30 05:40 Temperature Pulse Rate 85 85 Respiratory 22 20 Rate Blood Pressure 125/53 135/55 125/53 O2 Sat by Pulse 98 96 96 Oximetry 05/18/19 05/18/19 05/18/19 05:50 06:00 06:10 Temperature Pulse Rate 84 82 83 Respiratory 20 18 20 Rate Blood Pressure 136/56 136/56 135/55 O2 Sat by Pulse 96 94 95 Oximetry 05/18/19 05/18/19 05/18/19 06:20 06:30 06:40 Temperature Pulse Rate 83 82 78 Respiratory 20 19 19 Rate Blood Pressure 123/50 135/53 135/53 O2 Sat by Pulse 94 95 95 Oximetry 04/02/20 04/02/20 04/02/20 06:50 07:00 07:15 Temperature Pulse Rate 84 86 84 Respiratory 20 21 20 Rate Blood Pressure 131/53 128/53 136/55 O2 Sat by Pulse 96 94 95 Oximetry 05/18/19 05/18/19 05/18/19 07:30 07:46 08:00 Temperature 98.9 F Pulse Rate 83 86 82 Respiratory 20 21 20 Rate Blood Pressure 136/53 129/53 129/54 O2 Sat by Pulse 96 95 96 Oximetry 05/18/19 05/18/19 05/18/19 08:15 08:30 08:31 Temperature Pulse Rate 81 82 Respiratory 20 18 22 Rate Blood Pressure 131/57 129/54 O2 Sat by Pulse 97 97 97 Oximetry 05/18/19 05/18/19 10:50 12:17 Temperature Pulse Rate 82 89 Respiratory Rate Blood Pressure 141/60 141/60 O2 Sat by Pulse 98 96 Oximetry Constitutional: no acute distress, other (sedated) Eyes: non-icteric ENT: oropharynx moist, other (ETT at 22cm at the lip, NGT ) Neck: supple, no lymphadenopathy Effort: normal Ascultation: Bilateral: clear, diminished breath sounds Cardiovascular: regular rate and rhythm, other (S1,S2) Gastrointestinal: normoactive bowel sounds, soft, non-tender, non-distended Integumentary: normal Extremities: no cyanosis, no edema Neurologic: pupils equal and round, unable to assess (sedated) CBC and BMP: 05/17/19 05:43 05/18/19 11:15 ABG, PT/INR, D-dimer: ABG ABG pH 7.390 pH Units (7.350-7.450) 05/18/19 Unknown ABG pCO2 36.7 mm Hg 05/18/19 Unknown ABG pO2 133.0 mm Hg (80.0-90.0) H 05/18/19 Unknown ABG O2 Saturation 98.6 % (95.0-99.0) 05/18/19 Unknown PT/INR, D-dimer D-Dimer 5072.66 ng/mlDDU (0-234) H 05/18/19 11:15 Abnormal lab findings: Abnormal Labs 03/30/20 03/30/20 03/30/20 08:07 08:31 09:11 WBC 11.9 H RBC 3.41 L Hgb 9.3 L Hct 30.1 L MCH 27 L Lymph % (Auto) Lymph # Seg Neutrophils % Seg Neutrophils # D-Dimer ABG pO2 ABG O2 Saturation ABG Base Excess ABG Hemoglobin Oxyhemoglobin Sodium 136 L Carbon Dioxide 15 L D BUN 74 H Creatinine 5.8 H Glucose 267 H POC Glucose 344 H Hemoglobin A1c Lactic Acid Ferritin ALT < 5 L Lactate Dehydrogenase C-Reactive Protein NT-Pro-B Natriuret Pep Albumin 3.2 L Salicylates Acetaminophen 05/15/19 05/15/19 05/15/19 09:11 09:11 09:30 WBC RBC Hgb Hct MCH Lymph % (Auto) Lymph # Seg Neutrophils % Seg Neutrophils # D-Dimer ABG pO2 ABG O2 Saturation ABG Base Excess -2.8 L ABG Hemoglobin 8.2 L Oxyhemoglobin 94.6 L Sodium Carbon Dioxide BUN Creatinine Glucose POC Glucose Hemoglobin A1c Lactic Acid 3.50 H* Ferritin ALT Lactate Dehydrogenase C-Reactive Protein NT-Pro-B Natriuret Pep 7240 H Albumin Salicylates Acetaminophen 05/15/19 05/15/19 05/15/19 13:10 13:10 Unknown WBC RBC Hgb Hct MCH Lymph % (Auto) Lymph # Seg Neutrophils % Seg Neutrophils # D-Dimer ABG pO2 ABG O2 Saturation ABG Base Excess ABG Hemoglobin Oxyhemoglobin Sodium Carbon Dioxide BUN Creatinine Glucose POC Glucose Hemoglobin A1c 7.7 H Lactic Acid Ferritin ALT Lactate Dehydrogenase C-Reactive Protein NT-Pro-B Natriuret Pep Albumin Salicylates < 0.3 L Acetaminophen < 5.0 L 05/16/19 05/16/19 05/16/19 03:44 03:58 13:08 WBC 12.9 H RBC Hgb Hct MCH Lymph % (Auto) 7.1 L Lymph # 0.9 L Seg Neutrophils % 87.7 H Seg Neutrophils # 11.3 H D-Dimer ABG pO2 213.3 H ABG O2 Saturation 99.3 H ABG Base Excess ABG Hemoglobin 7.5 L Oxyhemoglobin Sodium Carbon Dioxide BUN Creatinine Glucose POC Glucose 231 H Hemoglobin A1c Lactic Acid Ferritin ALT Lactate Dehydrogenase C-Reactive Protein NT-Pro-B Natriuret Pep Albumin Salicylates Acetaminophen 05/16/19 05/16/19 05/17/19 18:28 23:34 05:02 WBC RBC Hgb Hct MCH Lymph % (Auto) Lymph # Seg Neutrophils % Seg Neutrophils # D-Dimer ABG pO2 91.9 H ABG O2 Saturation ABG Base Excess -3.6 L ABG Hemoglobin 7.2 L Oxyhemoglobin Sodium Carbon Dioxide BUN Creatinine Glucose POC Glucose 181 H 177 H Hemoglobin A1c Lactic Acid Ferritin ALT Lactate Dehydrogenase C-Reactive Protein NT-Pro-B Natriuret Pep Albumin Salicylates Acetaminophen 05/17/19 05/17/19 05/17/19 05:43 05:43 15:15 WBC RBC 3.06 L Hgb 8.6 L Hct 26.1 L D MCH Lymph % (Auto) 6.4 L Lymph # 0.5 L Seg Neutrophils % 87.5 H Seg Neutrophils # D-Dimer ABG pO2 ABG O2 Saturation ABG Base Excess ABG Hemoglobin Oxyhemoglobin Sodium Carbon Dioxide 17 L BUN 76 H Creatinine 5.4 H Glucose 231 H POC Glucose 302 H Hemoglobin A1c Lactic Acid Ferritin ALT Lactate Dehydrogenase C-Reactive Protein NT-Pro-B Natriuret Pep Albumin Salicylates Acetaminophen 05/17/19 05/18/19 05/18/19 18:44 00:04 05:35 WBC RBC Hgb Hct MCH Lymph % (Auto) Lymph # Seg Neutrophils % Seg Neutrophils # D-Dimer ABG pO2 ABG O2 Saturation ABG Base Excess ABG Hemoglobin Oxyhemoglobin Sodium Carbon Dioxide BUN Creatinine Glucose POC Glucose 258 H 331 H 329 H Hemoglobin A1c Lactic Acid Ferritin ALT Lactate Dehydrogenase C-Reactive Protein NT-Pro-B Natriuret Pep Albumin Salicylates Acetaminophen 05/18/19 05/18/19 05/18/19 11:15 11:15 11:15 WBC RBC Hgb Hct MCH Lymph % (Auto) Lymph # Seg Neutrophils % Seg Neutrophils # D-Dimer 5072.66 H ABG pO2 ABG O2 Saturation ABG Base Excess ABG Hemoglobin Oxyhemoglobin Sodium 146 H Carbon Dioxide 18 L BUN 99 H Creatinine 6.1 H Glucose 346 H POC Glucose Hemoglobin A1c Lactic Acid Ferritin 975.6 H ALT < 5 L Lactate Dehydrogenase C-Reactive Protein NT-Pro-B Natriuret Pep Albumin 3.0 L Salicylates Acetaminophen 05/18/19 05/18/19 05/18/19 11:15 11:55 Unknown WBC RBC Hgb Hct MCH Lymph % (Auto) Lymph # Seg Neutrophils % Seg Neutrophils # D-Dimer ABG pO2 133.0 H ABG O2 Saturation ABG Base Excess -2.9 L ABG Hemoglobin 8.3 L Oxyhemoglobin Sodium Carbon Dioxide BUN Creatinine Glucose POC Glucose 334 H Hemoglobin A1c Lactic Acid Ferritin ALT Lactate Dehydrogenase 483 H C-Reactive Protein 38.00 H NT-Pro-B Natriuret Pep Albumin Salicylates Acetaminophen Chest x-ray: image reviewed (ETT in position; Bilateral alveolar infiltrates, lower lobe predominant) Allied health notes reviewed: RT
--- NOTE | 2019-05-18 17:04 | Progress Note ---
Assessment and Plan - Patient Problems (1) CKD (chronic kidney disease) stage 5, GFR less than 15 ml/min Current Visit: No Status: Acute Plan to address problem: pt has history of diabetic nephropathy in the setting of long standing T2DM also complicated by diabetic retinopathy/diabetic neuropathy. Pt was being prepared for future HD, s/p recent LUE AVG placement. No urgent indication for renal replacement at present, however if volume/respiratory status deteriorate despite escalating dose of IV diuresis will consider initiation of HD. Cont supportive care for CKD avoid nephrotoxins, NSAIDS, IV contrast. (2) Pneumonia due to COVID-19 virus Current Visit: Yes Status: Acute Plan to address problem: management as per ID/pulmonary. (3) Pulmonary edema Current Visit: Yes Status: Acute Plan to address problem: in the setting of advanced CKD, worsening azotemia noted after IV lasix challenge. Low threshold for initiation of renal replacement therapy if oxygenation is deteriorating, along with declining renal function. (4) Acute respiratory failure Current Visit: Yes Status: Acute Qualifiers: Respiratory failure complication: hypoxia Qualified Code(s): J96.01 - Acute respiratory failure with hypoxia Plan to address problem: pt is on ventilator support, management as per ICU team (5) Metabolic acidosis Current Visit: Yes Status: Acute Plan to address problem: combined lactic acidosis and hyperchloremic met acidosis secondary to advanced CKD, started Na bicarb 650mg po bid (6) Type 2 diabetes mellitus with diabetic chronic kidney disease Current Visit: Yes Status: Chronic Plan to address problem: DM management as per primary attending (7) Hypertensive chronic kidney disease with stage 5 chronic kidney disease or end stage renal disease Current Visit: Yes Status: Chronic Plan to address problem: monitor BP on current meds Subjective Date of service: 05/18/19 Principal diagnosis: LOI on CKD Interval history: Pt remains intubated, sedated, on CPAP trial Objective - Vital Signs Vital signs: Vital Signs - 12hr 05/18/19 05/18/19 05/18/19 05:10 05:20 05:30 Temperature Pulse Rate 85 Respiratory 22 Rate Blood Pressure 152/55 125/53 135/55 O2 Sat by Pulse 95 98 96 Oximetry 05/18/19 05/18/19 05/18/19 05:40 05:50 06:00 Temperature Pulse Rate 85 84 82 Respiratory 20 20 18 Rate Blood Pressure 125/53 136/56 136/56 O2 Sat by Pulse 96 96 94 Oximetry 05/18/19 05/18/19 05/18/19 06:10 06:20 06:30 Temperature Pulse Rate 83 83 82 Respiratory 20 20 19 Rate Blood Pressure 135/55 123/50 135/53 O2 Sat by Pulse 95 94 95 Oximetry 05/18/19 05/18/19 05/18/19 06:40 06:50 07:00 Temperature Pulse Rate 78 84 86 Respiratory 19 20 21 Rate Blood Pressure 135/53 131/53 128/53 O2 Sat by Pulse 95 96 94 Oximetry 05/18/19 05/18/19 05/18/19 07:15 07:30 07:46 Temperature Pulse Rate 84 83 86 Respiratory 20 20 21 Rate Blood Pressure 136/55 136/53 129/53 O2 Sat by Pulse 95 96 95 Oximetry 05/18/19 05/18/19 05/18/19 08:00 08:15 08:30 Temperature 98.9 F Pulse Rate 82 81 82 Respiratory 20 20 18 Rate Blood Pressure 129/54 131/57 129/54 O2 Sat by Pulse 96 97 97 Oximetry 05/18/19 05/18/19 05/18/19 08:31 10:50 12:17 Temperature Pulse Rate 82 89 Respiratory 22 Rate Blood Pressure 141/60 141/60 O2 Sat by Pulse 97 98 96 Oximetry - General Appearance General appearance: chronically ill, sedated on ventilator, intubated EENT: ATNC, mucous membranes moist Neck: no JVD Respiratory: Present: Rales Cardiology: regular, S1S2 Gastrointestinal: normoactive bowel sounds Integumentary: no rash Neurologic: other (intubated, sedated ) - Lab 05/17/19 05:43 05/18/19 11:15 Most recent lab results ABG pH 7.390 pH Units (7.350-7.450) 05/18/19 Unknown ABG pCO2 36.7 mm Hg 05/18/19 Unknown ABG pO2 133.0 mm Hg (80.0-90.0) H 05/18/19 Unknown ABG HCO3 21.7 mmol/L (20.0-26.0) 05/18/19 Unknown ABG O2 Saturation 98.6 % (95.0-99.0) 05/18/19 Unknown Calcium 8.6 mg/dL (8.4-10.2) 05/18/19 11:15 Medications & Allergies - Medications Allergies/Adverse Reactions: Allergies No Known Allergies Allergy (Unverified 05/10/19 15:33) Home Medications: Home Medications Medication Instructions Recorded Confirmed Last Taken Type Aspirin [Adult Aspirin] 81 mg PO DAILY 05/10/19 05/10/19 05/11/19 History Cyanocobalamin (Vitamin B-12) 2,500 mcg PO DAILY 05/10/19 05/10/19 05/11/19 History [Vitamin B12] Ferrous Sulfate [Feosol 325 MG tab] 325 mg PO DAILY 05/10/19 05/10/19 05/11/19 History Gabapentin 100 mg PO TID 05/10/19 05/10/19 05/11/19 History Insulin Aspart (Nf) [NovoLOG 100 10 unit SQ TIDAC 05/10/19 05/10/19 05/11/19 History UNITS/ML VIAL] Insulin Glargine [Lantus VIAL] 36 unit SQ QAM 05/10/19 05/10/19 05/11/19 History Tizanidine HCl [Tizanidine 2mg tab] 2 mg PO DAILY 05/10/19 05/10/19 05/11/19 History Torsemide [Demadex] 20 mg PO BID 05/10/19 05/10/19 05/11/19 History amLODIPine 10 mg PO BID 05/10/19 05/10/19 05/12/19 04:30 History calcitrioL [Rocaltrol] 0.5 mcg PO DAILY 05/10/19 05/10/19 05/11/19 History carvediloL [Coreg] 12.5 mg PO BID 05/10/19 05/10/19 05/12/19 04:30 History oxyCODONE /ACETAMINOPHEN [Percocet 1 tab PO Q6HR PRN #24 tablet 05/12/19 Unknown Rx 5/325 mg] Active Medications: Generic Name Dose Route Start Last Admin Trade Name Freq PRN Reason Stop Dose Admin Acetaminophen 650 mg 05/15/19 23:04 Tylenol PO Q4H PRN Pain MILD(1-3)/Fever >100.5/MELVIN Acetaminophen 650 mg 05/16/19 01:28 05/16/19 01:44 Tylenol PA 650 mg Q6H PRN Administration TEMP > 100.3 Lipase/Protease/Amylase 1 each 05/16/19 11:14 Pancreamanda Gillespie 10,500 Unit FEEDTUBE PRN PRN For Clogged Feeding Tube Famotidine 20 mg 05/18/19 10:00 05/18/19 10:05 Pepcid PO 20 mg DAILY LUIS M Administration Hydromorphone HCl 0.25 mg 05/15/19 23:04 Dilaudid IV Q3H PRN Pain, Moderate (4-6) Hydrophilic Ointment 1 applic 05/15/19 09:48 Vaseline Lip Therapy TP Q2HR PRN Dry Lips Hydroxychloroquine Sulfate 400 mg 05/18/19 11:00 05/18/19 14:07 Plaquenil PO 05/18/19 22:01 400 mg BID LUIS M Administration Hydroxychloroquine Sulfate 200 mg 05/19/19 10:00 Plaquenil PO 05/22/19 22:01 BID LUIS M Propofol 1,000 mg in 100 mls @ 2.585 mls/hr 05/15/19 11:00 05/17/19 17:51 Diprivan 10 Mg/Ml IV 35 mcg/kg/min TITR LUIS M 18.098 mls/hr Administration Protocol 5 MCG/KG/MIN Cefepime HCl 1 gm in 100 mls @ 200 mls/hr 05/16/19 10:00 05/18/19 10:05 Cefepime/Ns 1 Gm/100 Ml IV 05/19/19 23:59 200 mls/hr Q24HR LUIS M Administration Insulin Human Lispro 0 unit 05/16/19 00:00 05/18/19 14:08 Humalog SUB-Q 6 unit Q6HR LUIS M Administration Protocol Metoclopramide HCl 5 mg 05/15/19 23:24 Reglan IV Q6H PRN Nausea And Vomiting Multi-Ingred Cream/Lotion/Oil/Oint 1 applic 05/15/19 09:48 Artificial Tears Ophth Oint OU Q4HR PRN Dry Eye(s) Ondansetron HCl 4 mg 05/15/19 23:04 Zofran IV Q8H PRN Nausea And Vomiting Simple Syrup 15 ml 05/16/19 11:14 Simple Syrup FEEDTUBE PRN PRN Hypoglycemia Simple Syrup 30 ml 05/16/19 11:14 Simple Syrup FEEDTUBE PRN PRN Hypoglycemia Sodium Bicarbonate 325 mg 05/16/19 11:14 Sodium Bicarbonate FEEDTUBE PRN PRN For Clogged Feeding Tube Sodium Bicarbonate 650 mg 05/16/19 22:00 05/18/19 10:06 Sodium Bicarbonate PO 650 mg BID LUIS M Administration Sodium Chloride 10 ml 05/16/19 10:00 05/18/19 10:06 Sodium Chloride Flush Syringe 10 Ml IV 10 ml BID LUIS M Administration Sodium Chloride 10 ml 05/15/19 23:04 Sodium Chloride Flush Syringe 10 Ml IV PRN PRN LINE FLUSH Zinc Sulfate 220 mg 05/18/19 11:00 05/18/19 11:50 Zinc Sulfate PO 220 mg DAILY LUIS M Administration
[2019-05-18] MEDS ORDERED: INSULIN GLARGINE 100 UNITS/ML SUB-Q ONE (19:30)
[2019-05-19] MEDS: INSULIN LISPRO 100 UNIT/ML SUB-Q SCH ×4 (00:31→18:30)
--- NOTE | 2019-05-19 05:30 | XRay Report ---
CHEST 1 VIEW 4:15 AM INDICATION / CLINICAL INFORMATION: Acute hypoxemic respiratory failure. COMPARISON: 05/15/19. FINDINGS: SUPPORT DEVICES: The positions of the endotracheal and nasogastric tubes have not changed. HEART / MEDIASTINUM: Unchanged. LUNGS / PLEURA: Pleuroparenchymal disease in both mid to lower lung zones is again identified, but lazaro s improved significantly. No pneumothorax. ADDITIONAL FINDINGS: No significant additional findings. IMPRESSION: Improving bilateral pleuroparenchymal disease. Signer Name: Og Weir MD Signed: 05/19/2019 5:25 AM Workstation Name: [id number]
[2019-05-19 06:16] LABS: ABG Base Excess -2.7 mmol/L (-2.0-3.0); ABG HCO3 21.5 mmol/L (20.0-26.0); ABG Methemoglobin 0.6 % (0.0-1.5); ABG Oxygen Saturation 94.4 % (95.0-99.0); ABG PCO2 34.9 mm Hg; ABG PH 7.409 pH Units (7.350-7.450); ABG PO2 61.1 mm Hg (80.0-90.0)
[2019-05-19] MEDS ORDERED: CEFEPIME/NS 1 GM/100 ML 1 GM/100 ML BAG IV SCH (10:00)
[2019-05-19] MEDS ORDERED: INSULIN GLARGINE 100 UNITS/ML SUB-Q SCH (10:00)
[2019-05-19] MEDS ORDERED: INSULIN GLARGINE 100 UNITS/ML SUB-Q ONE (10:00)
[2019-05-19] MEDS: ZINC SULFATE 220 MG CAP PO SCH (10:16)
[2019-05-19] MEDS: ONDANSETRON 4 MG/2 ML INJ IV PRN ×2 (10:17→18:30)
[2019-05-19] MEDS: FAMOTIDINE 20 MG TAB PO SCH (10:17)
[2019-05-19] MEDS: SODIUM BICARBONATE 650 MG TAB PO SCH ×2 (10:17→21:08)
[2019-05-19] MEDS: HYDROXYCHLOROQUINE 200 MG TAB PO SCH ×2 (10:17→21:08)
--- NOTE | 2019-05-19 10:37 | Progress Note ---
Assessment and Plan Acute hypoxemic respiratory failure orally intubated on MVS COVID 19 POSITIVE Bilateral pneumonia Oropharyngeal dysphagia Acute metabolic encephalopathy Infected AV graft for dialysis; ESRD on HD Type 2 diabetes mellitus; moderate control Lactic acidosis, present on admission Hypernatremia Increased lantus insulin to 15 units daily Resume tube feedings at half the previous dose No need for HD at this time, renal following and will evaluate on a daily basis Continue all critical care management as documented below -Continue with MVS, Lung protective strategies, monitor airway pressures -VAP bundle addressed -Continue aspiration precautions, HOB>40 -Continue daily assessment for readiness for SBT -Continue Stress ulcer prophylaxis -Continue VTE prophylaxis -Supportive transfusions as indicated to keep HgB >7g/dL -Continue enteric nutritional support at goal rate. Monitor glycemic control, with target blood glucose 140-180 mg/dL while critically ill. -Avoid hypoglycemia- Poor glycemic control -Contineu free water flushes to treat hypernatremia. Monitor - Continue to wean supplemental oxygen for target O2 sats > 90% -ABG and CXR in am -On hydroxychloroquine 400 mg po BID x 1 day then 200 mg po x 4 days bid total 5 days - F/U ferritin, LDH, D-Dimer and CRP tomorrow -ContinueCOVID isolationprecautions per [facility] protocol -Continue Cefepime day 5 of 5 , complete course ID following -Continue thiamine, multivitamin and electrolyte replacement -Continue to avoid nephrotoxins, adjust all medications for GFR and CrCL -Supportive HD per renal service - Continue bronchodilators with pulmonary hygiene - Continue prn analgesia per CPOT score - Continue to maintain of sleep-wake cycle, avoid delirium - PT/OT/ROM exercises - Continue mobility protocol , off loading and skin assessment per protocol for pressure ulcer prevention - continue other care per attending / other consultants CONDITION: CRITICAL PROGNOSIS: GUARDED CODE STATUS: FULL CODE The high probability of a clinically significant, sudden or life-threatening deterioration of the [respiratory, renal, Neurology] system(s) required my full and direct attention, intervention and personal management. The aggregate critical care time was [35] minutes without overlap. Time includes spent on; [x] Data Review and interpretation [x] Patient assessment and monitoring of vital signs [x] Documentation [x] Medication orders and management Subjective Date of service: 05/19/19 Principal diagnosis: LOI on CKD Interval history: Patient is seen today for: Acute hypoxemic respiratory failure orally intubated on MVS;COVID 19 POSITIVE;Bilateral pneumonia;Oropharyngeal dysphagia ;Acute metabolic encephalopathy Seen and examined at bedside; 24hour events reviewed; nursing and respiratory care staff consulted; no adverse overnight events reported to me; Vitals, labs, medications, chart reviewed. On gong fevers Temperature max of 104.9., off Propofol and remains calm. Orally intubated on MVS. Episodes of vomiting, tube feeding on hold. Hyperglycemia, currently on Plaqueni Day 03/22. On Cefepime and Vancomycin 12 lead EKG today QTc <500 Objective Vital Signs - 12hr 05/18/19 05/18/19 05/18/19 22:43 22:45 23:00 Temperature Pulse Rate 85 85 86 Pulse Rate [ Right Radial] Respiratory 21 21 18 Rate Blood Pressure 145/59 145/59 138/68 O2 Sat by Pulse 91 90 88 Oximetry 05/18/19 05/18/19 05/18/19 23:15 23:31 23:45 Temperature Pulse Rate 84 84 86 Pulse Rate [ Right Radial] Respiratory 19 19 22 Rate Blood Pressure 138/68 138/68 138/68 O2 Sat by Pulse 91 91 90 Oximetry 05/19/19 05/19/19 05/19/19 00:00 00:15 00:31 Temperature 100.9 F H Pulse Rate 89 91 H 95 H Pulse Rate [ 93 H Right Radial] Respiratory 23 24 29 H Rate Blood Pressure 137/62 137/62 137/62 O2 Sat by Pulse 88 87 90 Oximetry 05/19/19 05/19/19 05/19/19 00:45 00:53 01:01 Temperature Pulse Rate 94 H 96 H 92 H Pulse Rate [ Right Radial] Respiratory 26 H 24 Rate Blood Pressure 137/62 137/62 149/59 O2 Sat by Pulse 91 96 90 Oximetry 05/19/19 05/19/19 05/19/19 01:15 01:31 01:45 Temperature Pulse Rate 90 89 88 Pulse Rate [ Right Radial] Respiratory 20 19 17 Rate Blood Pressure 137/62 137/62 137/62 O2 Sat by Pulse 90 90 90 Oximetry 05/19/19 05/19/19 05/19/19 02:00 02:15 02:30 Temperature Pulse Rate 89 86 85 Pulse Rate [ Right Radial] Respiratory 20 18 17 Rate Blood Pressure 133/51 133/51 133/51 O2 Sat by Pulse 89 89 90 Oximetry 05/19/19 05/19/19 05/19/19 02:45 03:00 03:15 Temperature Pulse Rate 82 85 84 Pulse Rate [ Right Radial] Respiratory 17 17 20 Rate Blood Pressure 133/51 137/47 137/47 O2 Sat by Pulse 91 90 90 Oximetry 05/19/19 05/19/19 05/19/19 03:30 03:31 03:45 Temperature 101.2 F H Pulse Rate 83 82 Pulse Rate [ Right Radial] Respiratory 15 17 Rate Blood Pressure 137/47 137/47 O2 Sat by Pulse 90 90 Oximetry 05/19/19 05/19/19 05/19/19 04:00 04:15 04:31 Temperature Pulse Rate 85 84 87 Pulse Rate [ 84 Right Radial] Respiratory 18 17 26 H Rate Blood Pressure 122/53 122/53 122/53 O2 Sat by Pulse 91 89 88 Oximetry 05/19/19 05/19/19 05/19/19 04:45 05:01 05:15 Temperature Pulse Rate 84 84 79 Pulse Rate [ Right Radial] Respiratory 19 20 17 Rate Blood Pressure 122/53 116/50 116/50 O2 Sat by Pulse 89 91 91 Oximetry 05/19/19 05/19/19 05/19/19 05:31 05:38 05:45 Temperature Pulse Rate 82 79 79 Pulse Rate [ Right Radial] Respiratory 18 18 Rate Blood Pressure 116/50 116/50 116/50 O2 Sat by Pulse 91 94 91 Oximetry 05/19/19 05/19/19 05/19/19 06:01 06:15 06:31 Temperature Pulse Rate 79 79 77 Pulse Rate [ Right Radial] Respiratory 17 17 17 Rate Blood Pressure 96/44 96/44 96/44 O2 Sat by Pulse 91 90 90 Oximetry 05/19/19 05/19/19 05/19/19 06:45 07:00 08:00 Temperature Pulse Rate 79 74 74 Pulse Rate [ Right Radial] Respiratory 18 15 Rate Blood Pressure 96/44 93/41 93/41 O2 Sat by Pulse 90 91 91 Oximetry Constitutional: no acute distress, other (sedated) Eyes: non-icteric ENT: oropharynx moist, other (ETT at 22cm at the lip, NGT ) Neck: supple, no lymphadenopathy Effort: normal Ascultation: Bilateral: clear, diminished breath sounds Cardiovascular: regular rate and rhythm, other (S1,S2) Gastrointestinal: normoactive bowel sounds, soft, non-tender, non-distended Integumentary: normal Extremities: no cyanosis, no edema Neurologic: pupils equal and round, unable to assess (sedated) CBC and BMP: 05/17/19 05:43 05/19/19 15:02 ABG, PT/INR, D-dimer: ABG ABG pH 7.409 pH Units (7.350-7.450) 05/19/19 05:07 ABG pCO2 34.9 mm Hg 05/19/19 05:07 ABG pO2 61.1 mm Hg (80.0-90.0) L 05/19/19 05:07 ABG O2 Saturation 94.4 % (95.0-99.0) L 05/19/19 05:07 PT/INR, D-dimer D-Dimer 5072.66 ng/mlDDU (0-234) H 05/18/19 11:15 Abnormal lab findings: Abnormal Labs 05/15/19 05/15/19 05/15/19 08:07 08:31 09:11 WBC 11.9 H RBC 3.41 L Hgb 9.3 L Hct 30.1 L MCH 27 L Lymph % (Auto) Lymph # Seg Neutrophils % Seg Neutrophils # D-Dimer ABG pO2 ABG O2 Saturation ABG Base Excess ABG Hemoglobin Oxyhemoglobin Sodium 136 L Carbon Dioxide 15 L D BUN 74 H Creatinine 5.8 H Glucose 267 H POC Glucose 344 H Hemoglobin A1c Lactic Acid Ferritin ALT < 5 L Lactate Dehydrogenase C-Reactive Protein NT-Pro-B Natriuret Pep Albumin 3.2 L Salicylates Acetaminophen 05/15/19 05/15/19 05/15/19 09:11 09:11 09:30 WBC RBC Hgb Hct MCH Lymph % (Auto) Lymph # Seg Neutrophils % Seg Neutrophils # D-Dimer ABG pO2 ABG O2 Saturation ABG Base Excess -2.8 L ABG Hemoglobin 8.2 L Oxyhemoglobin 94.6 L Sodium Carbon Dioxide BUN Creatinine Glucose POC Glucose Hemoglobin A1c Lactic Acid 3.50 H* Ferritin ALT Lactate Dehydrogenase C-Reactive Protein NT-Pro-B Natriuret Pep 7240 H Albumin Salicylates Acetaminophen 05/15/19 05/15/19 05/15/19 13:10 13:10 Unknown WBC RBC Hgb Hct MCH Lymph % (Auto) Lymph # Seg Neutrophils % Seg Neutrophils # D-Dimer ABG pO2 ABG O2 Saturation ABG Base Excess ABG Hemoglobin Oxyhemoglobin Sodium Carbon Dioxide BUN Creatinine Glucose POC Glucose Hemoglobin A1c 7.7 H Lactic Acid Ferritin ALT Lactate Dehydrogenase C-Reactive Protein NT-Pro-B Natriuret Pep Albumin Salicylates < 0.3 L Acetaminophen < 5.0 L 05/16/19 05/16/19 05/16/19 03:44 03:58 13:08 WBC 12.9 H RBC Hgb Hct MCH Lymph % (Auto) 7.1 L Lymph # 0.9 L Seg Neutrophils % 87.7 H Seg Neutrophils # 11.3 H D-Dimer ABG pO2 213.3 H ABG O2 Saturation 99.3 H ABG Base Excess ABG Hemoglobin 7.5 L Oxyhemoglobin Sodium Carbon Dioxide BUN Creatinine Glucose POC Glucose 231 H Hemoglobin A1c Lactic Acid Ferritin ALT Lactate Dehydrogenase C-Reactive Protein NT-Pro-B Natriuret Pep Albumin Salicylates Acetaminophen 05/16/19 05/16/19 05/17/19 18:28 23:34 05:02 WBC RBC Hgb Hct MCH Lymph % (Auto) Lymph # Seg Neutrophils % Seg Neutrophils # D-Dimer ABG pO2 91.9 H ABG O2 Saturation ABG Base Excess -3.6 L ABG Hemoglobin 7.2 L Oxyhemoglobin Sodium Carbon Dioxide BUN Creatinine Glucose POC Glucose 181 H 177 H Hemoglobin A1c Lactic Acid Ferritin ALT Lactate Dehydrogenase C-Reactive Protein NT-Pro-B Natriuret Pep Albumin Salicylates Acetaminophen 05/17/19 05/17/19 05/17/19 05:43 05:43 15:15 WBC RBC 3.06 L Hgb 8.6 L Hct 26.1 L D MCH Lymph % (Auto) 6.4 L Lymph # 0.5 L Seg Neutrophils % 87.5 H Seg Neutrophils # D-Dimer ABG pO2 ABG O2 Saturation ABG Base Excess ABG Hemoglobin Oxyhemoglobin Sodium Carbon Dioxide 17 L BUN 76 H Creatinine 5.4 H Glucose 231 H POC Glucose 302 H Hemoglobin A1c Lactic Acid Ferritin ALT Lactate Dehydrogenase C-Reactive Protein NT-Pro-B Natriuret Pep Albumin Salicylates Acetaminophen 05/17/19 05/18/19 05/18/19 18:44 00:04 05:35 WBC RBC Hgb Hct MCH Lymph % (Auto) Lymph # Seg Neutrophils % Seg Neutrophils # D-Dimer ABG pO2 ABG O2 Saturation ABG Base Excess ABG Hemoglobin Oxyhemoglobin Sodium Carbon Dioxide BUN Creatinine Glucose POC Glucose 258 H 331 H 329 H Hemoglobin A1c Lactic Acid Ferritin ALT Lactate Dehydrogenase C-Reactive Protein NT-Pro-B Natriuret Pep Albumin Salicylates Acetaminophen 05/18/19 05/18/19 05/18/19 11:15 11:15 11:15 WBC RBC Hgb Hct MCH Lymph % (Auto) Lymph # Seg Neutrophils % Seg Neutrophils # D-Dimer 5072.66 H ABG pO2 ABG O2 Saturation ABG Base Excess ABG Hemoglobin Oxyhemoglobin Sodium 146 H Carbon Dioxide 18 L BUN 99 H Creatinine 6.1 H Glucose 346 H POC Glucose Hemoglobin A1c Lactic Acid Ferritin 975.6 H ALT < 5 L Lactate Dehydrogenase C-Reactive Protein NT-Pro-B Natriuret Pep Albumin 3.0 L Salicylates Acetaminophen 05/18/19 05/18/19 05/18/19 11:15 11:55 18:11 WBC RBC Hgb Hct MCH Lymph % (Auto) Lymph # Seg Neutrophils % Seg Neutrophils # D-Dimer ABG pO2 ABG O2 Saturation ABG Base Excess ABG Hemoglobin Oxyhemoglobin Sodium Carbon Dioxide BUN Creatinine Glucose POC Glucose 334 H 397 H Hemoglobin A1c Lactic Acid Ferritin ALT Lactate Dehydrogenase 483 H C-Reactive Protein 38.00 H NT-Pro-B Natriuret Pep Albumin Salicylates Acetaminophen 05/18/19 05/19/19 05/19/19 Unknown 00:30 05:07 WBC RBC Hgb Hct MCH Lymph % (Auto) Lymph # Seg Neutrophils % Seg Neutrophils # D-Dimer ABG pO2 133.0 H 61.1 L ABG O2 Saturation 94.4 L ABG Base Excess -2.9 L -2.7 L ABG Hemoglobin 8.3 L 8.0 L Oxyhemoglobin 92.2 L Sodium Carbon Dioxide BUN Creatinine Glucose POC Glucose 321 H Hemoglobin A1c Lactic Acid Ferritin ALT Lactate Dehydrogenase C-Reactive Protein NT-Pro-B Natriuret Pep Albumin Salicylates Acetaminophen 05/19/19 05:17 WBC RBC Hgb Hct MCH Lymph % (Auto) Lymph # Seg Neutrophils % Seg Neutrophils # D-Dimer ABG pO2 ABG O2 Saturation ABG Base Excess ABG Hemoglobin Oxyhemoglobin Sodium Carbon Dioxide BUN Creatinine Glucose POC Glucose 235 H Hemoglobin A1c Lactic Acid Ferritin ALT Lactate Dehydrogenase C-Reactive Protein NT-Pro-B Natriuret Pep Albumin Salicylates Acetaminophen Allied health notes reviewed: RT
[2019-05-19] MEDS: HEPARIN 5,000 UNIT/1 ML VIAL SUB-Q SCH ×2 (12:56→21:08)
[2019-05-19] MEDS: HYDROmorphone 1 MG/1 ML INJ IV PRN (12:57)
--- NOTE | 2019-05-19 13:40 | Progress Note ---
Assessment and Plan - Patient Problems (1) CKD (chronic kidney disease) stage 5, GFR less than 15 ml/min Current Visit: No Status: Acute Plan to address problem: pt has history of diabetic nephropathy in the setting of long standing T2DM also complicated by diabetic retinopathy/diabetic neuropathy. Pt was being prepared for future HD, s/p recent LUE AVG placement on 05/12/19. eGFR decreased further after IV lasix challenge. CXR showed improved bilateral pleuroparenchymal disease. No urgent indication for renal replacement at present, however if pt becomes more oliguric with limited response to IV lasix prn and volume/respiratory status deteriorate despite further will consider initiation of HD. Ideally we would like to use recently placed AVG for HD, and avoid further permcath placement. As per Dr Walsh, AVG could be accessed after at least 10 days post AVG placement. Will monitor I/Os, lytes and renal parameters closely and make further recommendations. Cont supportive care for CKD avoid nephrotoxins, NSAIDS, IV contrast. (2) Pneumonia due to COVID-19 virus Current Visit: Yes Status: Acute Plan to address problem: management as per ID/pulmonary. (3) Pulmonary edema Current Visit: Yes Status: Acute Plan to address problem: in the setting of advanced CKD, CXR showed improved bilateral pleuroparenchymal infiltrates after IV lasix challenge. Low threshold for initiation of renal replacement therapy if oxygenation is deteriorating, along with declining renal function. (4) Acute respiratory failure Current Visit: Yes Status: Acute Qualifiers: Respiratory failure complication: hypoxia Qualified Code(s): J96.01 - Acute respiratory failure with hypoxia Plan to address problem: pt is on ventilator support, management as per ICU team (5) Metabolic acidosis Current Visit: Yes Status: Acute Plan to address problem: combined lactic acidosis and hyperchloremic met acidosis secondary to advanced CKD, started Na bicarb via NGT (6) Type 2 diabetes mellitus with diabetic chronic kidney disease Current Visit: Yes Status: Chronic Plan to address problem: DM management as per primary attending (7) Hypertensive chronic kidney disease with stage 5 chronic kidney disease or end stage renal disease Current Visit: Yes Status: Chronic Plan to address problem: monitor BP on current meds Subjective Date of service: 05/19/19 Principal diagnosis: LOI on CKD Interval history: Pt remains intubated, sedated, on CPAP trial Objective - Vital Signs Vital signs: Vital Signs - 12hr 05/19/19 05/19/19 05/19/19 01:45 02:00 02:15 Temperature Pulse Rate 88 89 86 Pulse Rate [ Right Radial] Respiratory 17 20 18 Rate Blood Pressure 137/62 133/51 133/51 O2 Sat by Pulse 90 89 89 Oximetry 05/19/19 05/19/19 05/19/19 02:30 02:45 03:00 Temperature Pulse Rate 85 82 85 Pulse Rate [ Right Radial] Respiratory 17 17 17 Rate Blood Pressure 133/51 133/51 137/47 O2 Sat by Pulse 90 91 90 Oximetry 05/19/19 05/19/19 05/19/19 03:15 03:30 03:31 Temperature 101.2 F H Pulse Rate 84 83 Pulse Rate [ Right Radial] Respiratory 20 15 Rate Blood Pressure 137/47 137/47 O2 Sat by Pulse 90 90 Oximetry 05/19/19 05/19/19 05/19/19 03:45 04:00 04:15 Temperature Pulse Rate 82 85 84 Pulse Rate [ 84 Right Radial] Respiratory 17 18 17 Rate Blood Pressure 137/47 122/53 122/53 O2 Sat by Pulse 90 91 89 Oximetry 05/19/19 05/19/19 05/19/19 04:31 04:45 05:01 Temperature Pulse Rate 87 84 84 Pulse Rate [ Right Radial] Respiratory 26 H 19 20 Rate Blood Pressure 122/53 122/53 116/50 O2 Sat by Pulse 88 89 91 Oximetry 05/19/19 05/19/19 05/19/19 05:15 05:31 05:38 Temperature Pulse Rate 79 82 79 Pulse Rate [ Right Radial] Respiratory 17 18 Rate Blood Pressure 116/50 116/50 116/50 O2 Sat by Pulse 91 91 94 Oximetry 05/19/19 05/19/19 05/19/19 05:45 06:01 06:15 Temperature Pulse Rate 79 79 79 Pulse Rate [ Right Radial] Respiratory 18 17 17 Rate Blood Pressure 116/50 96/44 96/44 O2 Sat by Pulse 91 91 90 Oximetry 05/19/19 05/19/19 05/19/19 06:31 06:45 07:00 Temperature Pulse Rate 77 79 74 Pulse Rate [ Right Radial] Respiratory 17 18 15 Rate Blood Pressure 96/44 96/44 93/41 O2 Sat by Pulse 90 90 91 Oximetry 05/19/19 05/19/19 05/19/19 07:15 07:31 07:45 Temperature Pulse Rate 77 76 77 Pulse Rate [ Right Radial] Respiratory 16 16 18 Rate Blood Pressure 93/41 93/41 93/41 O2 Sat by Pulse 90 90 91 Oximetry 05/19/19 05/19/19 05/19/19 08:00 08:15 08:31 Temperature Pulse Rate 80 80 81 Pulse Rate [ Right Radial] Respiratory 16 19 16 Rate Blood Pressure 87/48 87/48 87/48 O2 Sat by Pulse 91 92 91 Oximetry 05/19/19 05/19/19 05/19/19 08:45 09:00 09:15 Temperature Pulse Rate 80 75 86 Pulse Rate [ Right Radial] Respiratory 17 17 15 Rate Blood Pressure 90/51 98/41 98/41 O2 Sat by Pulse 90 92 92 Oximetry 05/19/19 05/19/19 05/19/19 09:31 09:45 10:00 Temperature Pulse Rate 74 83 82 Pulse Rate [ Right Radial] Respiratory 14 24 18 Rate Blood Pressure 98/41 98/41 105/46 O2 Sat by Pulse 92 88 91 Oximetry 05/19/19 05/19/19 05/19/19 10:15 10:31 10:45 Temperature Pulse Rate 81 79 78 Pulse Rate [ Right Radial] Respiratory 18 18 15 Rate Blood Pressure 105/46 105/46 105/46 O2 Sat by Pulse 91 91 91 Oximetry 05/19/19 05/19/19 05/19/19 11:00 11:15 11:31 Temperature Pulse Rate 77 77 80 Pulse Rate [ Right Radial] Respiratory 14 15 16 Rate Blood Pressure 83/38 83/38 83/38 O2 Sat by Pulse 91 90 91 Oximetry 05/19/19 05/19/19 11:45 11:50 Temperature Pulse Rate 82 82 Pulse Rate [ Right Radial] Respiratory 14 Rate Blood Pressure 83/38 83/38 O2 Sat by Pulse 90 90 Oximetry - General Appearance General appearance: sedated on ventilator, intubated EENT: ATNC, mucous membranes moist Neck: no JVD Respiratory: Present: Decreased Breath Sounds Cardiology: regular, S1S2 Gastrointestinal: normoactive bowel sounds Integumentary: no rash, other (trace edema ) - Lab 05/17/19 05:43 05/18/19 11:15 Most recent lab results ABG pH 7.409 pH Units (7.350-7.450) 05/19/19 05:07 ABG pCO2 34.9 mm Hg 05/19/19 05:07 ABG pO2 61.1 mm Hg (80.0-90.0) L 05/19/19 05:07 ABG HCO3 21.5 mmol/L (20.0-26.0) 05/19/19 05:07 ABG O2 Saturation 94.4 % (95.0-99.0) L 05/19/19 05:07 Calcium 8.6 mg/dL (8.4-10.2) 05/18/19 11:15 Medications & Allergies - Medications Allergies/Adverse Reactions: Allergies No Known Allergies Allergy (Unverified 05/10/19 15:33) Home Medications: Home Medications Medication Instructions Recorded Confirmed Last Taken Type Aspirin [Adult Aspirin] 81 mg PO DAILY 05/10/19 05/10/19 05/11/19 History Cyanocobalamin (Vitamin B-12) 2,500 mcg PO DAILY 05/10/19 05/10/19 05/11/19 History [Vitamin B12] Ferrous Sulfate [Feosol 325 MG tab] 325 mg PO DAILY 05/10/19 05/10/19 05/11/19 History Gabapentin 100 mg PO TID 05/10/19 05/10/19 05/11/19 History Insulin Aspart (Nf) [NovoLOG 100 10 unit SQ TIDAC 05/10/19 05/10/19 05/11/19 History UNITS/ML VIAL] Insulin Glargine [Lantus VIAL] 36 unit SQ QAM 05/10/19 05/10/19 05/11/19 History Tizanidine HCl [Tizanidine 2mg tab] 2 mg PO DAILY 05/10/19 05/10/19 05/11/19 History Torsemide [Demadex] 20 mg PO BID 05/10/19 05/10/19 05/11/19 History amLODIPine 10 mg PO BID 05/10/19 05/10/19 05/12/19 04:30 History calcitrioL [Rocaltrol] 0.5 mcg PO DAILY 05/10/19 05/10/19 05/11/19 History carvediloL [Coreg] 12.5 mg PO BID 05/10/19 05/10/19 05/12/19 04:30 History oxyCODONE /ACETAMINOPHEN [Percocet 1 tab PO Q6HR PRN #24 tablet 05/12/19 Unknown Rx 5/325 mg] Active Medications: Generic Name Dose Route Start Last Admin Trade Name Freq PRN Reason Stop Dose Admin Acetaminophen 650 mg 05/15/19 23:04 Tylenol PO Q4H PRN Pain MILD(1-3)/Fever >100.5/MELVIN Acetaminophen 650 mg 05/16/19 01:28 05/16/19 01:44 Tylenol SD 650 mg Q6H PRN Administration TEMP > 100.3 Lipase/Protease/Amylase 1 each 05/16/19 11:[address] 10,500 Unit FEEDTUBE PRN PRN For Clogged Feeding Tube Famotidine 20 mg 05/18/19 10:00 05/19/19 10:17 Pepcid PO 20 mg DAILY LUIS M Administration Heparin Sodium (Porcine) 5,000 unit 05/19/19 12:00 05/19/19 12:56 Heparin SUB-Q 5,000 unit Q12HR LUIS M Administration Hydromorphone HCl 0.25 mg 05/15/19 23:04 05/19/19 12:57 Dilaudid IV 0.25 mg Q3H PRN Administration Pain, Moderate (4-6) Hydrophilic Ointment 1 applic 05/15/19 09:48 Vaseline Lip Therapy TP Q2HR PRN Dry Lips Hydroxychloroquine Sulfate 200 mg 05/19/19 10:00 05/19/19 10:17 Plaquenil PO 05/22/19 22:01 200 mg BID LUIS M Administration Propofol 1,000 mg in 100 mls @ 2.585 mls/hr 05/15/19 11:00 05/17/19 17:51 Diprivan 10 Mg/Ml IV 35 mcg/kg/min TITR LUIS M 18.098 mls/hr Administration Protocol 5 MCG/KG/MIN Cefepime HCl 1 gm in 100 mls @ 200 mls/hr 05/19/19 10:00 05/19/19 10:16 Cefepime/Ns 1 Gm/100 Ml IV 05/19/19 22:59 200 mls/hr Q24HR LUIS M Administration Insulin Glargine 10 units 05/19/19 10:00 05/19/19 10:15 Lantus SUB-Q 10 units DAILY LUIS M Administration Insulin Human Lispro 0 unit 05/16/19 00:00 05/19/19 12:56 Humalog SUB-Q 6 unit Q6HR LUIS M Administration Protocol Metoclopramide HCl 5 mg 05/15/19 23:24 Reglan IV Q6H PRN Nausea And Vomiting Multi-Ingred Cream/Lotion/Oil/Oint 1 applic 05/15/19 09:48 Artificial Tears Ophth Oint OU Q4HR PRN Dry Eye(s) Ondansetron HCl 4 mg 05/15/19 23:04 05/19/19 10:17 Zofran IV 4 mg Q8H PRN Administration Nausea And Vomiting Simple Syrup 15 ml 05/16/19 11:14 Simple Syrup FEEDTUBE PRN PRN Hypoglycemia Simple Syrup 30 ml 05/16/19 11:14 Simple Syrup FEEDTUBE PRN PRN Hypoglycemia Sodium Bicarbonate 325 mg 05/16/19 11:14 Sodium Bicarbonate FEEDTUBE PRN PRN For Clogged Feeding Tube Sodium Bicarbonate 650 mg 05/16/19 22:00 05/19/19 10:17 Sodium Bicarbonate PO 650 mg BID LUIS M Administration Sodium Chloride 10 ml 05/16/19 10:00 05/19/19 10:17 Sodium Chloride Flush Syringe 10 Ml IV 10 ml BID LUIS M Administration Sodium Chloride 10 ml 05/15/19 23:04 Sodium Chloride Flush Syringe 10 Ml IV PRN PRN LINE FLUSH Zinc Sulfate 220 mg 05/18/19 11:00 05/19/19 10:16 Zinc Sulfate PO 05/22/19 10:59 220 mg DAILY LUIS M Administration
[2019-05-19 15:28] LABS: Calcium 8.3 mg/dL (8.4-10.2)
--- NOTE | 2019-05-19 16:34 | Progress Note ---
Assessment and Plan Cultures: Blood culture 05/15/2019 no growth to date Sputum culture no growth A/P: 63 y/o female with history of ESRD s/p AV graft placement 3 days before admission, admitted on 05/15/2019 for fever and drainage from the left upper extremity graft site as well as cough with whezzing and fever 102: #Severe sepsis: fever better; likely due to COVID pneumonia +/- AVG infection (per vascular not infected - duplex scan demonstrates patent graft with appropriate flow volumes and with minimal fluid noted at the venous anastomosis) #Acute Acute Respiratory Failure: intubated, due to pneumonia #Severe COVID pneumonia: COVID test positive. Markers up. CT chest shows bilateral diffuse ground glass opacities. #DM: uncontrolled #ESRD on HD #vomiting Recs: At risk for aspiration pneumonia Continue hydroxychloroquine 400 mg po BID x 1 day then 200 mg po x 4 days bid total 5 days Continue zinc 220 mg po q day ContinueCOVID isolationprecautions per [facility] protocol Stop cefepime day 5 of 5 Obtain Ferritin, LDH, D-Dimer, CRP today monitor fever High risk mortality Will follow Lou Bettencourt MD Infectious Diseases [employer] [facility] ([facility]) M [phone] O [phone] Subjective Date of service: 05/19/19 Principal diagnosis: LOI on CKD Interval history: Remains with high fever now intubated Objective - Exam Narrative Exam: Constitutional: Intubated, sedated FiO2 50% p6 Head, Ears, Nose:limited due to lack of PPE Oral: Endotracheal tube Cardiovascular: Limited evaluation due to PPE shortage Respiratory: Limited evaluation due to PPE shortage GI: Limited evaluation due to PPE shortage Musculoskeletal: Limited evaluation due to PPE shortage Skin: right arm AVG with edema, erythema and heat Neurological: Sedated - Constitutional Vitals: Vital Signs Temp Pulse Resp BP Pulse Ox 101.2 F H 84 14 111/49 90 05/19/19 03:30 05/19/19 15:35 05/19/19 11:45 05/19/19 15:35 05/19/19 15:35 Temperature -Last 24 Hours Temperature 101.2 F Temperature 100.9 F Temperature 99.3 F - Labs CBC & Chem 7: 05/17/19 05:43 05/19/19 15:02 Labs: Abnormal lab results 05/18/19 05/19/19 05/19/19 Range/Units 18:11 00:30 05:07 ABG pO2 61.1 L (80.0-90.0) mm Hg ABG O2 Saturation 94.4 L (95.0-99.0) % ABG Base Excess -2.7 L (-2.0-3.0) mmol/L ABG Hemoglobin 8.0 L (12.0-16.0) gm/dl Oxyhemoglobin 92.2 L (95.0-99.0) % Sodium (137-145) mmol/L Chloride (98-107) mmol/L Carbon Dioxide (22-30) mmol/L BUN (7-17) mg/dL Creatinine (0.7-1.2) mg/dL Glucose (65-100) mg/dL POC Glucose 397 H 321 H (70-105) Calcium (8.4-10.2) mg/dL 05/19/19 05/19/19 05/19/19 Range/Units 05:17 12:23 15:02 ABG pO2 (80.0-90.0) mm Hg ABG O2 Saturation (95.0-99.0) % ABG Base Excess (-2.0-3.0) mmol/L ABG Hemoglobin (12.0-16.0) gm/dl Oxyhemoglobin (95.0-99.0) % Sodium 147 H (137-145) mmol/L Chloride 108.2 H (98-107) mmol/L Carbon Dioxide 16 L (22-30) mmol/L BUN 119 H (7-17) mg/dL Creatinine 8.5 H (0.7-1.2) mg/dL Glucose 315 H (65-100) mg/dL POC Glucose 235 H 298 H (70-105) Calcium 8.3 L (8.4-10.2) mg/dL
--- NOTE | 2019-05-19 17:46 | Progress Note ---
Assessment and Plan Assessment and plan: --Covid-19 confirmed Covid19 paperwork completed by ED F/U ferritin, LDH, D-Dimer and CRP --Acute hypoxic respiratory failure; requiring intubation On ventilatory support, nebulizers Supportive care, pulmonary critical following Wean as tolerated per pulm --Bilateral patchy groundglass opacities/pneumonia Isolation precautions, cultures ID following --Acute metabolic encephalopathy; Present on admission, probably secondary to hypoxemia --Infected AV graft for dialysis; IV antibiotics, vascular,ID following --End-stage renal disease on hemodialysis; HD per schedulen nephrology following --Type 2 diabetes mellitus; moderate control Accu-Chek sliding scale coverage ADA diet and insulin as needed HbA1c 7.7 --Moderate malnutrition/hypoalbuminemia Due to underlying disease process, nutrition supplements Nutrition consult as needed --Lactic acidosis; rule out infections Supportive care --DVT prophylaxis; Lovenox --Obesity BMI 31.6; Patient needs weight reduction when medically stable --Full CODE STATUS; Monitor closely and adjust management as needed Very poor prognosis Plan of care reviewed with the patient's nurse 05/18/2019 Covid-19 confirmed y. Patient currently with AC mode, rate20, tidal volume 450, FiO2 50% and PEEP 6. Continue hydroxychloroquine 400 mg p.o. twPatient is critically ill with poor prognosis. Wean as tolerated per pulmonarice daily x1 day then 200 mg p.o. x 4 twice daily for 5 days. Continue cefepime per ID. Follow-up inflammatory markers of ferritin, LDH, d-dimer and CRP. 05/19/19 Patient currently with AC mode, rate20, tidal volume 450, FiO2 50% and PEEP 6. Continue hydroxychloroquine 400 mg p.o. twPatient is critically ill with poor prognosis. Wean as tolerated per pulmonarice daily x1 day then 200 mg p.o. x 4 twice daily for 5 days. Continue cefepime per ID. Follow-up inflammatory markers of ferritin, LDH, d-dimer and CRP. Discussed confirmed positive test with daughter The high probability of a clinically significant, sudden or life threatening deterioration of the [immunologic and respiratory] system(s) required my full and direct attention, intervention and personal management. The aggregate critical care time was [32] minutes. This time is in addition to time spent performing reported procedures but includes the following: [x] Data Review and interpretation [x] Patient assessment and monitoring of vital signs [x] Documentation [x] Medication orders and management History Interval history: No new issues overnight. Hospitalist Physical - Constitutional Vitals: Temp Pulse Resp BP Pulse Ox 101.2 F H 78 22 111/52 89 05/19/19 03:30 05/19/19 17:00 05/19/19 17:00 05/19/19 17:00 05/19/19 17:00 General appearance: Present: no acute distress, other (Currently on a ventilator and sedated) - EENT Eyes: Present: PERRL, EOM intact ENT: hearing intact, clear oral mucosa, dentition normal - Neck Neck: Present: supple, normal ROM - Respiratory Respiratory effort: normal Respiratory: bilateral: CTA - Cardiovascular Rhythm: regular Heart Sounds: Present: S1 & S2. Absent: gallop, rub - Extremities Extremities: no ischemia, No edema, Full ROM - Abdominal General gastrointestinal: soft, non-tender, non-distended, normal bowel sounds - Integumentary Integumentary: Present: clear, warm, dry - Neurologic Neurologic: CNII-XII intact, moves all extremities Results - Labs CBC & Chem 7: 05/17/19 05:43 05/19/19 15:02 Labs: Laboratory Last Values WBC 8.2 K/mm3 (4.5-11.0) 05/17/19 05:43 RBC 3.06 M/mm3 (3.65-5.03) L 05/17/19 05:43 Hgb 8.6 gm/dl (10.1-14.3) L 05/17/19 05:43 Hct 26.1 % (30.3-42.9) L D 05/17/19 05:43 MCV 85 fl (79-97) 05/17/19 05:43 MCH 28 pg (28-32) 05/17/19 05:43 MCHC 33 % (30-34) 05/17/19 05:43 RDW 14.2 % (13.2-15.2) 05/17/19 05:43 Plt Count 230 K/mm3 (140-440) 05/17/19 05:43 Lymph % (Auto) 6.4 % (13.4-35.0) L 05/17/19 05:43 [place] % (Auto) 4.9 % (0.0-7.3) 05/17/19 05:43 Eos % (Auto) 0.9 % (0.0-4.3) 05/17/19 05:43 Baso % (Auto) 0.3 % (0.0-1.8) 05/17/19 05:43 Lymph # 0.5 K/mm3 (1.2-5.4) L 05/17/19 05:43 [place] # 0.4 K/mm3 (0.0-0.8) 05/17/19 05:43 Eos # 0.1 K/mm3 (0.0-0.4) 05/17/19 05:43 Baso # 0.0 K/mm3 (0.0-0.1) 05/17/19 05:43 Seg Neutrophils % 87.5 % (40.0-70.0) H 05/17/19 05:43 Seg Neutrophils # 7.2 K/mm3 (1.8-7.7) 05/17/19 05:43 D-Dimer 5072.66 ng/mlDDU (0-234) H 05/18/19 11:15 ABG pH 7.409 pH Units (7.350-7.450) 05/19/19 05:07 ABG pCO2 34.9 mm Hg 05/19/19 05:07 ABG pO2 61.1 mm Hg (80.0-90.0) L 05/19/19 05:07 ABG HCO3 21.5 mmol/L (20.0-26.0) 05/19/19 05:07 ABG O2 Saturation 94.4 % (95.0-99.0) L 05/19/19 05:07 ABG O2 Content 10.4 (0.0-44) 05/19/19 05:07 ABG Base Excess -2.7 mmol/L (-2.0-3.0) L 05/19/19 05:07 ABG Hemoglobin 8.0 gm/dl (12.0-16.0) L 05/19/19 05:07 ABG Carboxyhemoglobin 1.8 % (0.0-5.0) 05/19/19 05:07 ABG Methemoglobin 0.6 % (0.0-1.5) 05/19/19 05:07 Oxyhemoglobin 92.2 % (95.0-99.0) L 05/19/19 05:07 FiO2 40 % 05/19/19 05:07 Sodium 147 mmol/L (137-145) H 05/19/19 15:02 Potassium 3.8 mmol/L (3.6-5.0) 05/19/19 15:02 Chloride 108.2 mmol/L (98-107) H 05/19/19 15:02 Carbon Dioxide 16 mmol/L (22-30) L 05/19/19 15:02 Anion Gap 27 mmol/L 05/19/19 15:02 BUN 119 mg/dL (7-17) H 05/19/19 15:02 Creatinine 8.5 mg/dL (0.7-1.2) H 05/19/19 15:02 Estimated GFR 6 ml/min 05/19/19 15:02 BUN/Creatinine Ratio 14 % 05/19/19 15:02 Glucose 315 mg/dL (65-100) H 05/19/19 15:02 POC Glucose 298 (70-105) H 05/19/19 12:23 Hemoglobin A1c 7.7 % (4-6) H 05/15/19 Unknown Lactic Acid 1.40 mmol/L (0.7-2.0) 05/15/19 11:41 Calcium 8.3 mg/dL (8.4-10.2) L 05/19/19 15:02 Ferritin 975.6 ng/mL (13.0-400.0) H 05/18/19 11:15 Total Bilirubin 0.30 mg/dL (0.1-1.2) 05/18/19 11:15 AST 37 units/L (5-40) 05/18/19 11:15 ALT < 5 units/L (7-56) L 05/18/19 11:15 Alkaline Phosphatase 56 units/L (35-129) 05/18/19 11:15 Lactate Dehydrogenase 483 units/L (91-180) H 05/18/19 11:15 C-Reactive Protein 38.00 mg/dL (0.00-1.30) H 05/18/19 11:15 NT-Pro-B Natriuret Pep 7240 pg/mL (0-900) H 05/15/19 09:11 Total Protein 6.8 g/dL (6.3-8.2) 05/18/19 11:15 Albumin 3.0 g/dL (3.9-5) L 05/18/19 11:15 Albumin/Globulin Ratio 0.8 % 05/18/19 11:15 Urine Color Straw (Yellow) 05/15/19 12:07 Urine Turbidity Clear (Clear) 05/15/19 12:07 Urine pH 7.0 (5.0-7.0) 05/15/19 12:07 Ur Specific [place] 1.009 (1.003-1.030) 05/15/19 12:07 Urine Protein 100 mg/dl mg/dL (Negative) 05/15/19 12:07 Urine Glucose (UA) >=500 mg/dL (Negative) 05/15/19 12:07 Urine Ketones Neg mg/dL (Negative) 05/15/19 12:07 Urine Blood Sm (Negative) 05/15/19 12:07 Urine Nitrite Neg (Negative) 05/15/19 12:07 Urine Bilirubin Neg (Negative) 05/15/19 12:07 Urine Urobilinogen < 2.0 mg/dL (<2.0) 05/15/19 12:07 Ur Leukocyte Esterase Neg (Negative) 05/15/19 12:07 Urine WBC (Auto) 3.0 /HPF (0.0-6.0) 05/15/19 12:07 Urine RBC (Auto) 18.0 /HPF (0.0-6.0) 05/15/19 12:07 Urine Mucus Few /HPF 05/15/19 12:07 Random Vancomycin 11.9 ug/mL (0-40.0) 05/17/19 14:57 Salicylates < 0.3 mg/dL (2.8-20.0) L 05/15/19 13:10 Acetaminophen < 5.0 ug/mL (10.0-30.0) L 05/15/19 13:10 Miscellaneous Test See scanned result 05/16/19 Unknown Microbiology: Microbiology 05/15/19 Unknown Peripheral/Venous Blood Culture - Preliminary NO GROWTH AFTER 4 DAYS 05/15/19 Unknown Peripheral/Venous Blood Culture - Preliminary NO GROWTH AFTER 4 DAYS Castellanos/IV: Voiding Method Indwelling Catheter IV Catheter Type [Left INT / Saline Lock External Jugular] IV Catheter Type [Right Wrist] INT / Saline Lock IV Catheter Type [Right INT / Saline Lock External Jugular] Active Medications - Current Medications Current Medications: Generic Name Dose Route Start Last Admin Trade Name Freq PRN Reason Stop Dose Admin Acetaminophen 650 mg 05/15/19 23:04 Tylenol PO Q4H PRN Pain MILD(1-3)/Fever >100.5/MELVIN Acetaminophen 650 mg 05/16/19 01:28 05/16/19 01:44 Tylenol [place] 650 mg Q6H PRN Administration TEMP > 100.3 Lipase/Protease/Amylase 1 each 05/16/19 11:[address] 10,500 Unit FEEDTUBE PRN PRN For Clogged Feeding Tube Famotidine 20 mg 05/18/19 10:00 05/19/19 10:17 Pepcid PO 20 mg DAILY LUIS M Administration Heparin Sodium (Porcine) 5,000 unit 05/19/19 12:00 05/19/19 12:56 Heparin SUB-Q 5,000 unit Q12HR LUIS M Administration Hydromorphone HCl 0.25 mg 05/15/19 23:04 05/19/19 12:57 Dilaudid IV 0.25 mg Q3H PRN Administration Pain, Moderate (4-6) Hydrophilic Ointment 1 applic 05/15/19 09:48 Vaseline Lip Therapy TP Q2HR PRN Dry Lips Hydroxychloroquine Sulfate 200 mg 05/19/19 10:00 05/19/19 10:17 Plaquenil PO 05/22/19 22:01 200 mg BID LUIS M Administration Propofol 1,000 mg in 100 mls @ 2.585 mls/hr 05/15/19 11:00 05/17/19 17:51 Diprivan 10 Mg/Ml IV 35 mcg/kg/min TITR LUIS M 18.098 mls/hr Administration Protocol 5 MCG/KG/MIN Cefepime HCl 1 gm in 100 mls @ 200 mls/hr 05/19/19 10:00 05/19/19 10:16 Cefepime/Ns 1 Gm/100 Ml IV 05/19/19 22:59 200 mls/hr Q24HR LUIS M Administration Insulin Glargine 10 units 05/19/19 10:00 05/19/19 10:15 Lantus SUB-Q 10 units DAILY LUIS M Administration Insulin Human Lispro 0 unit 05/16/19 00:00 05/19/19 12:56 Humalog SUB-Q 6 unit Q6HR LUIS M Administration Protocol Metoclopramide HCl 5 mg 05/15/19 23:24 Reglan IV Q6H PRN Nausea And Vomiting Multi-Ingred Cream/Lotion/Oil/Oint 1 applic 05/15/19 09:48 Artificial Tears Ophth Oint OU Q4HR PRN Dry Eye(s) Ondansetron HCl 4 mg 05/15/19 23:04 05/19/19 10:17 Zofran IV 4 mg Q8H PRN Administration Nausea And Vomiting Simple Syrup 15 ml 05/16/19 11:14 Simple Syrup FEEDTUBE PRN PRN Hypoglycemia Simple Syrup 30 ml 05/16/19 11:14 Simple Syrup FEEDTUBE PRN PRN Hypoglycemia Sodium Bicarbonate 325 mg 05/16/19 11:14 Sodium Bicarbonate FEEDTUBE PRN PRN For Clogged Feeding Tube Sodium Bicarbonate 650 mg 05/16/19 22:00 05/19/19 10:17 Sodium Bicarbonate PO 650 mg BID LUIS M Administration Sodium Chloride 10 ml 05/16/19 10:00 05/19/19 10:17 Sodium Chloride Flush Syringe 10 Ml IV 10 ml BID LUIS M Administration Sodium Chloride 10 ml 05/15/19 23:04 Sodium Chloride Flush Syringe 10 Ml IV PRN PRN LINE FLUSH Zinc Sulfate 220 mg 05/18/19 11:00 05/19/19 10:16 Zinc Sulfate PO 05/22/19 10:59 220 mg DAILY LUIS M Administration Nutrition/Malnutrition Assess - Dietary Evaluation Nutrition/Malnutrition Findings: Nutrition Notes Start: 05/16/19 08:31 Freq: Status: Active Protocol: Document 05/18/19 09:22 LM (Rec: 05/18/19 09:30 LM [email or web address]) Nutrition Notes Initial or Follow up Reassessment Current Diagnosis CKD (stage V CKD),Diabetes, Hypertension,Respiratory Failure Other Pertinent Diagnosis AV graft infection, fever, suspected COVID-19 Current Diet Nepro 1.8 at 35ml/hr Labs/Tests POC glu 329 Pertinent Medications Humalog Height 5 ft 5 in Weight 81.8 kg [place] Body Weight (kg) 56.81 BMI 29.9 Weight change and time frame wt change noted Weight Status Obese Subjective/Other Information Nepro running at 35ml/hr and pt is tolerating TF. Will adjust TF to better meet protein needs Percent of energy/protein needs met: 100%/60% Burn Absent Trauma Absent Current % PO Negligible Minimum of two criteria No Reduced Landcare Facilitator Strength Measurably Reduced (severe) #1 Nutrition Diagnosis Inadequate oral intake Diagnosis Progress(for reassessment Continues documentation) Is patient on ventilator? Yes Is Patient Ambulatory and/or Out of Bed No REE-([facility]-confined to bed) [phone] Calculation Used for Recommendations [facility] Additional Notes Protein: 114g (>/=2g/kg using IBW 57kg) Fluid: per MD Nutrition Intervention Change Diet Order: TF Nutrition Support: Change to Nepro 1.8 at 45ml/hr Flush 200 ml q4h Kcal 1,944 Protein (gm) 87 Fluid (mL) 785 Goal #1 TF tolerance Goal #2 Meet at least 75% of energy and protein needs via TF Anticipated Discharge Needs: unable to determine at this time Follow-Up By: 05/22/19 Additional Comments F/U for TF tolerance, rate
[2019-05-20] MEDS: INSULIN LISPRO 100 UNIT/ML SUB-Q SCH ×5 (00:37→23:38)
[2019-05-20 04:48] LABS: ABG Base Excess -6.5 mmol/L (-2.0-3.0); ABG HCO3 18.9 mmol/L (20.0-26.0); ABG Methemoglobin 0.6 % (0.0-1.5); ABG PCO2 37.4 mm Hg; ABG PH 7.322 pH Units (7.350-7.450); ABG PO2 58.5 mm Hg (80.0-90.0)
[2019-05-20 09:55] LABS: C-Reactive Protein 56.3 mg/dL (0.00-1.30)
--- NOTE | 2019-05-20 10:08 | Progress Note ---
Assessment and Plan Assessment and plan: --Covid-19 confirmed Covid19 paperwork completed by ED F/U ferritin, LDH, D-Dimer and CRP --Acute hypoxic respiratory failure; requiring intubation On ventilatory support, nebulizers Supportive care, pulmonary critical following Wean as tolerated per pulm --Bilateral patchy groundglass opacities/pneumonia Isolation precautions, cultures ID following --Acute metabolic encephalopathy; Present on admission, probably secondary to hypoxemia --Infected AV graft for dialysis; IV antibiotics, vascular,ID following --End-stage renal disease on hemodialysis; HD per schedulen nephrology following --Type 2 diabetes mellitus; moderate control Accu-Chek sliding scale coverage ADA diet and insulin as needed HbA1c 7.7 --Moderate malnutrition/hypoalbuminemia Due to underlying disease process, nutrition supplements Nutrition consult as needed --Lactic acidosis; rule out infections Supportive care --DVT prophylaxis; Lovenox --Obesity BMI 31.6; Patient needs weight reduction when medically stable --Full CODE STATUS; Monitor closely and adjust management as needed Very poor prognosis Plan of care reviewed with the patient's nurse 05/18/2019 Covid-19 confirmed Patient currently with AC mode, rate20, tidal volume 450, FiO2 50% and PEEP 6. Continue hydroxychloroquine 400 mg p.o. twPatient is critically ill with poor prognosis. Wean as tolerated per pulmonarice daily x1 day then 200 mg p.o. x 4 twice daily for 5 days. Continue cefepime per ID. Follow-up inflammatory markers of ferritin, LDH, d-dimer and CRP. 05/19/19 Patient currently with AC mode, rate20, tidal volume 450, FiO2 50% and PEEP 6. Patient is critically ill with poor prognosis. Continue Plaquenil 200 mg p.o. x 4 twice daily for 5 days. Continue cefepime per ID. Follow-up inflammatory markers of ferritin, LDH, d-dimer and CRP. Discussed confirmed positive test with daughter 05/20/2019. Continue Plaquenil taper per ID recommendations. Continue mechanical ventilation with AC mode, rate 14, tidal volume 450 and PEEP 6. Follow-up inflammatory markers of ferritin, LDH, d-dimer and CRP. The high probability of a clinically significant, sudden or life threatening deterioration of the [immunologic and respiratory] system(s) required my full and direct attention, intervention and personal management. The aggregate critical care time was [32] minutes. This time is in addition to time spent performing reported procedures but includes the following: [x] Data Review and interpretation [x] Patient assessment and monitoring of vital signs [x] Documentation [x] Medication orders and management History Interval history: 63 y/o female with history of ESRD s/p AV graft placement 3 days before admission, admitted on 05/15/2019 for fever and drainage from the left upper extremity graft site as well as cough with whezzing and fever 102: No new issues overnight per nursing. Hospitalist Physical - Constitutional Vitals: Temp Pulse Resp BP Pulse Ox 100.3 F H 84 16 114/49 94 05/20/19 08:00 05/20/19 09:00 05/20/19 09:00 05/20/19 09:00 05/20/19 09:00 General appearance: Present: severe distress, other (Currently on a ventilator and sedated) - EENT Eyes: Present: PERRL, EOM intact ENT: hearing intact, clear oral mucosa, dentition normal - Neck Neck: Present: supple, normal ROM - Respiratory Respiratory effort: normal Respiratory: bilateral: CTA - Cardiovascular Rhythm: regular Heart Sounds: Present: S1 & S2. Absent: gallop, rub - Extremities Extremities: no ischemia, No edema, Full ROM - Abdominal General gastrointestinal: soft, non-tender, non-distended, normal bowel sounds - Integumentary Integumentary: Present: clear, warm, dry - Neurologic Neurologic: CNII-XII intact, moves all extremities Results - Labs CBC & Chem 7: 05/17/19 05:43 05/19/19 15:02 Labs: Laboratory Last Values WBC 8.2 K/mm3 (4.5-11.0) 05/17/19 05:43 RBC 3.06 M/mm3 (3.65-5.03) L 05/17/19 05:43 Hgb 8.6 gm/dl (10.1-14.3) L 05/17/19 05:43 Hct 26.1 % (30.3-42.9) L D 05/17/19 05:43 MCV 85 fl (79-97) 05/17/19 05:43 MCH 28 pg (28-32) 05/17/19 05:43 MCHC 33 % (30-34) 05/17/19 05:43 RDW 14.2 % (13.2-15.2) 05/17/19 05:43 Plt Count 230 K/mm3 (140-440) 05/17/19 05:43 Lymph % (Auto) 6.4 % (13.4-35.0) L 05/17/19 05:43 [place] % (Auto) 4.9 % (0.0-7.3) 05/17/19 05:43 Eos % (Auto) 0.9 % (0.0-4.3) 05/17/19 05:43 Baso % (Auto) 0.3 % (0.0-1.8) 05/17/19 05:43 Lymph # 0.5 K/mm3 (1.2-5.4) L 05/17/19 05:43 [place] # 0.4 K/mm3 (0.0-0.8) 05/17/19 05:43 Eos # 0.1 K/mm3 (0.0-0.4) 05/17/19 05:43 Baso # 0.0 K/mm3 (0.0-0.1) 05/17/19 05:43 Seg Neutrophils % 87.5 % (40.0-70.0) H 05/17/19 05:43 Seg Neutrophils # 7.2 K/mm3 (1.8-7.7) 05/17/19 05:43 D-Dimer 5072.66 ng/mlDDU (0-234) H 05/18/19 11:15 ABG pH 7.322 pH Units (7.350-7.450) L 05/20/19 04:17 ABG pCO2 37.4 mm Hg 05/20/19 04:17 ABG pO2 58.5 mm Hg (80.0-90.0) L 05/20/19 04:17 ABG HCO3 18.9 mmol/L (20.0-26.0) L 05/20/19 04:17 ABG O2 Saturation 91.0 % (95.0-99.0) L 05/20/19 04:17 ABG O2 Content 8.8 (0.0-44) 05/20/19 04:17 ABG Base Excess -6.5 mmol/L (-2.0-3.0) L 05/20/19 04:17 ABG Hemoglobin 7.0 gm/dl (12.0-16.0) L 05/20/19 04:17 ABG Carboxyhemoglobin 2.6 % (0.0-5.0) 05/20/19 04:17 ABG Methemoglobin 0.6 % (0.0-1.5) 05/20/19 04:17 Oxyhemoglobin 88.2 % (95.0-99.0) L 05/20/19 04:17 FiO2 40 % 05/20/19 04:17 Sodium 147 mmol/L (137-145) H 05/19/19 15:02 Potassium 3.8 mmol/L (3.6-5.0) 05/19/19 15:02 Chloride 108.2 mmol/L (98-107) H 05/19/19 15:02 Carbon Dioxide 16 mmol/L (22-30) L 05/19/19 15:02 Anion Gap 27 mmol/L 05/19/19 15:02 BUN 119 mg/dL (7-17) H 05/19/19 15:02 Creatinine 8.5 mg/dL (0.7-1.2) H 05/19/19 15:02 Estimated GFR 6 ml/min 05/19/19 15:02 BUN/Creatinine Ratio 14 % 05/19/19 15:02 Glucose 315 mg/dL (65-100) H 05/19/19 15:02 POC Glucose 332 (70-105) H 05/20/19 05:29 Hemoglobin A1c 7.7 % (4-6) H 05/15/19 Unknown Lactic Acid 1.40 mmol/L (0.7-2.0) 05/15/19 11:41 Calcium 8.3 mg/dL (8.4-10.2) L 05/19/19 15:02 Ferritin 975.6 ng/mL (13.0-400.0) H 05/18/19 11:15 Total Bilirubin 0.30 mg/dL (0.1-1.2) 05/18/19 11:15 AST 37 units/L (5-40) 05/18/19 11:15 ALT < 5 units/L (7-56) L 05/18/19 11:15 Alkaline Phosphatase 56 units/L (35-129) 05/18/19 11:15 Lactate Dehydrogenase 646 units/L (91-180) H 05/20/19 09:06 C-Reactive Protein 56.30 mg/dL (0.00-1.30) H 05/20/19 09:06 NT-Pro-B Natriuret Pep 7240 pg/mL (0-900) H 05/15/19 09:11 Total Protein 6.8 g/dL (6.3-8.2) 05/18/19 11:15 Albumin 3.0 g/dL (3.9-5) L 05/18/19 11:15 Albumin/Globulin Ratio 0.8 % 05/18/19 11:15 Urine Color Straw (Yellow) 05/15/19 12:07 Urine Turbidity Clear (Clear) 05/15/19 12:07 Urine pH 7.0 (5.0-7.0) 05/15/19 12:07 Ur Specific [place] 1.009 (1.003-1.030) 05/15/19 12:07 Urine Protein 100 mg/dl mg/dL (Negative) 05/15/19 12:07 Urine Glucose (UA) >=500 mg/dL (Negative) 05/15/19 12:07 Urine Ketones Neg mg/dL (Negative) 05/15/19 12:07 Urine Blood Sm (Negative) 05/15/19 12:07 Urine Nitrite Neg (Negative) 05/15/19 12:07 Urine Bilirubin Neg (Negative) 05/15/19 12:07 Urine Urobilinogen < 2.0 mg/dL (<2.0) 05/15/19 12:07 Ur Leukocyte Esterase Neg (Negative) 05/15/19 12:07 Urine WBC (Auto) 3.0 /HPF (0.0-6.0) 05/15/19 12:07 Urine RBC (Auto) 18.0 /HPF (0.0-6.0) 05/15/19 12:07 Urine Mucus Few /HPF 05/15/19 12:07 Random Vancomycin 11.9 ug/mL (0-40.0) 05/17/19 14:57 Salicylates < 0.3 mg/dL (2.8-20.0) L 05/15/19 13:10 Acetaminophen < 5.0 ug/mL (10.0-30.0) L 05/15/19 13:10 Miscellaneous Test See scanned result 05/16/19 Unknown Microbiology: Microbiology 05/15/19 Unknown Peripheral/Venous Blood Culture - Final NO GROWTH AFTER 5 DAYS 05/15/19 Unknown Peripheral/Venous Blood Culture - Final NO GROWTH AFTER 5 DAYS Castellanos/IV: Voiding Method Indwelling Catheter IV Catheter Type [Left INT / Saline Lock External Jugular] IV Catheter Type [Right Wrist] INT / Saline Lock IV Catheter Type [Right INT / Saline Lock External Jugular] Active Medications - Current Medications Current Medications: Generic Name Dose Route Start Last Admin Trade Name Freq PRN Reason Stop Dose Admin Acetaminophen 650 mg 05/15/19 23:04 Tylenol PO Q4H PRN Pain MILD(1-3)/Fever >100.5/MELVIN Acetaminophen 650 mg 05/16/19 01:28 05/16/19 01:44 Tylenol [place] 650 mg Q6H PRN Administration TEMP > 100.3 Lipase/Protease/Amylase 1 each 05/16/19 11:[address] 10,500 Unit FEEDTUBE PRN PRN For Clogged Feeding Tube Famotidine 20 mg 05/18/19 10:00 05/19/19 10:17 Pepcid PO 20 mg DAILY LUIS M Administration Heparin Sodium (Porcine) 5,000 unit 05/19/19 12:00 05/19/19 21:08 Heparin SUB-Q 5,000 unit Q12HR LUIS M Administration Hydromorphone HCl 0.25 mg 05/15/19 23:04 05/19/19 12:57 Dilaudid IV 0.25 mg Q3H PRN Administration Pain, Moderate (4-6) Hydrophilic Ointment 1 applic 05/15/19 09:48 Vaseline Lip Therapy TP Q2HR PRN Dry Lips Hydroxychloroquine Sulfate 200 mg 05/19/19 10:00 05/19/19 21:08 Plaquenil PO 05/22/19 22:01 200 mg BID LUIS M Administration Propofol 1,000 mg in 100 mls @ 2.585 mls/hr 05/15/19 11:00 05/17/19 17:51 Diprivan 10 Mg/Ml IV 35 mcg/kg/min TITR LUIS M 18.098 mls/hr Administration Protocol 5 MCG/KG/MIN Insulin Glargine 30 units 05/20/19 10:00 Lantus SUB-Q DAILY [facility] Insulin Human Lispro 0 unit 05/16/19 00:00 05/20/19 06:17 Humalog SUB-Q 8 unit Q6HR LUIS M Administration Protocol Metoclopramide HCl 5 mg 05/15/19 23:24 Reglan IV Q6H PRN Nausea And Vomiting Multi-Ingred Cream/Lotion/Oil/Oint 1 applic 05/15/19 09:48 Artificial Tears Ophth Oint OU Q4HR PRN Dry Eye(s) Ondansetron HCl 4 mg 05/15/19 23:04 05/19/19 18:30 Zofran IV 4 mg Q8H PRN Administration Nausea And Vomiting Simple Syrup 15 ml 05/16/19 11:14 Simple Syrup FEEDTUBE PRN PRN Hypoglycemia Simple Syrup 30 ml 05/16/19 11:14 Simple Syrup FEEDTUBE PRN PRN Hypoglycemia Sodium Bicarbonate 325 mg 05/16/19 11:14 Sodium Bicarbonate FEEDTUBE PRN PRN For Clogged Feeding Tube Sodium Bicarbonate 650 mg 05/16/19 22:00 05/19/19 21:08 Sodium Bicarbonate PO 650 mg BID LUIS M Administration Sodium Chloride 10 ml 05/16/19 10:00 05/19/19 21:09 Sodium Chloride Flush Syringe 10 Ml IV 10 ml BID LUIS M Administration Sodium Chloride 10 ml 05/15/19 23:04 Sodium Chloride Flush Syringe 10 Ml IV PRN PRN LINE FLUSH Zinc Sulfate 220 mg 05/18/19 11:00 05/19/19 10:16 Zinc Sulfate PO 05/22/19 10:59 220 mg DAILY LUIS M Administration Nutrition/Malnutrition Assess - Dietary Evaluation Nutrition/Malnutrition Findings: Nutrition Notes Start: 05/16/19 08:31 Freq: Status: Active Protocol: Document 05/18/19 09:22 LM (Rec: 05/18/19 09:30 LM [email or web address]) Nutrition Notes Initial or Follow up Reassessment Current Diagnosis CKD (stage V CKD),Diabetes, Hypertension,Respiratory Failure Other Pertinent Diagnosis AV graft infection, fever, suspected COVID-19 Current Diet Nepro 1.8 at 35ml/hr Labs/Tests POC glu 329 Pertinent Medications Humalog Height 5 ft 5 in Weight 81.8 kg [place] Body Weight (kg) 56.81 BMI 29.9 Weight change and time frame wt change noted Weight Status Obese Subjective/Other Information Nepro running at 35ml/hr and pt is tolerating TF. Will adjust TF to better meet protein needs Percent of energy/protein needs met: 100%/60% Burn Absent Trauma Absent Current % PO Negligible Minimum of two criteria No Reduced Chiller Tender Strength Measurably Reduced (severe) #1 Nutrition Diagnosis Inadequate oral intake Diagnosis Progress(for reassessment Continues documentation) Is patient on ventilator? Yes Is Patient Ambulatory and/or Out of Bed No REE-([facility]-confined to bed) 1653.720 Calculation Used for Recommendations [facility] Additional Notes Protein: 114g (>/=2g/kg using IBW 57kg) Fluid: per MD Nutrition Intervention Change Diet Order: TF Nutrition Support: Change to Nepro 1.8 at 45ml/hr Flush 200 ml q4h Kcal 1,944 Protein (gm) 87 Fluid (mL) 785 Goal #1 TF tolerance Goal #2 Meet at least 75% of energy and protein needs via TF Anticipated Discharge Needs: unable to determine at this time Follow-Up By: 05/22/19 Additional Comments F/U for TF tolerance, rate
[2019-05-20] MEDS: FAMOTIDINE 20 MG TAB PO SCH (10:10)
[2019-05-20] MEDS: SODIUM BICARBONATE 650 MG TAB PO SCH ×2 (10:10→22:00)
[2019-05-20] MEDS: INSULIN GLARGINE 100 UNITS/ML SUB-Q SCH (10:11)
[2019-05-20] MEDS: HEPARIN 5,000 UNIT/1 ML VIAL SUB-Q SCH ×2 (10:11→21:42)
[2019-05-20] MEDS: HYDROXYCHLOROQUINE 200 MG TAB PO SCH ×2 (10:11→22:00)
[2019-05-20] MEDS: ZINC SULFATE 220 MG CAP PO SCH (11:00)
--- NOTE | 2019-05-20 16:45 | Progress Note ---
Assessment and Plan Acute hypoxemic respiratory failure, on mechanical ventilatory support. Bilateral pneumonia vs pulmonary edema. Bilateral pleural effusions. Severe Sepsis COVID-19 infection. End-stage renal disease, on dialysis. Acute toxic metabolic encephalopathy. Diabetes type 2. History of congestive heart failure. History of hypertension. Oropharyngeal dysphagia. Gastroesophageal reflux disease. Obesity - follow COVID result - continue airborne, droplet and contact precautions - follow serum inflammation markers - Conservative fluid management (use vasopressors including midodrine to support blood pressure). - ABG, CXR per protocol - VAP bundle addressed (continue aspiration precautions) - continue to wean supplemental oxygen to keep O2 sats > 90% - continue daily SAT's and SBT assessment - continue Bronchodilators (SHASHANK) with pulm hygiene per RT - sedation target for RASS 0 to -1 - Accuchecks with glycemic control, keep blood glucose 140-180 mg/dL while critically ill (Avoid hypoglycemia) - continue HD/UF for toxin and volume control - Avoid nephrotoxins, adjust and dose all medications fro GFR and CrCL - continue GI & VTE prophylaxis - continue QT monitoring while on plaqenil (Stop if QT interval > 500) - other COVID-19 precautions per [facility] protocol - enteral nutrition at goal rate as tolerated - prn analgesia per CPOT score - mobility protocols to prevent pressure ulcers - GI & VTE prophylaxis - Flu & pneumovax per protocol - continue other care per attending / other consultants ... re-evaluate in am & prn CONDITION: CRITICAL PROGNOSIS: GUARDED CODE STATUS: FULL CODE The high probability of a clinically significant, sudden or life threatening deterioration of the [pulmonary, renal & neurologic] system(s) required my full and direct attention, intervention and personal management. The aggregate critical care time was [32] minutes. This time is in addition to time spent performing reported procedures but includes the following: [x] Data Review and interpretation [x] Patient assessment and monitoring of vital signs [x] Documentation [x] Medication orders and management Subjective Date of service: 05/20/19 Principal diagnosis: Ac hypoxemic resp failure; Hakeem pneumonia; Sepsis; COVID-19 infection; ESRD Interval history: Patient is seen today for: Acute hypoxemic respiratory failure; Bilateral pneumonia vs pulmonary edema; Bilateral pleural effusions; Sepsis; Possible COVID-19 infection; End-stage renal disease, on dialysis; Acute toxic metabolic encephalopathy. Seen and examined at bedside; 24hour events reviewed; nursing and respiratory care staff consulted; no adverse overnight events reported to me; resting peacefully in bed; remains on MVS; no emesis or overt aspiration; COVID-19 result pending Objective Vital Signs - 12hr 05/20/19 05/20/19 05/20/19 05:00 06:00 07:00 Temperature Pulse Rate 91 H 88 85 Pulse Rate [ From Monitor] Respiratory 18 19 19 Rate Blood Pressure 128/52 123/50 120/49 O2 Sat by Pulse 89 90 91 Oximetry 05/20/19 05/20/19 05/20/19 08:00 08:40 09:00 Temperature 100.3 F H Pulse Rate 85 89 84 Pulse Rate [ From Monitor] Respiratory 16 16 Rate Blood Pressure 119/47 119/47 114/49 O2 Sat by Pulse 96 94 94 Oximetry 05/20/19 05/20/19 05/20/19 10:00 11:00 12:00 Temperature 100.6 F H Pulse Rate 86 89 86 Pulse Rate [ 86 From Monitor] Respiratory 15 18 17 Rate Blood Pressure 109/48 128/59 114/56 O2 Sat by Pulse 96 94 96 Oximetry 05/20/19 05/20/19 05/20/19 12:02 13:00 14:01 Temperature Pulse Rate 87 91 H 86 Pulse Rate [ From Monitor] Respiratory 18 18 Rate Blood Pressure 114/56 114/52 98/45 O2 Sat by Pulse 96 91 92 Oximetry 05/20/19 14:25 Temperature Pulse Rate 89 Pulse Rate [ From Monitor] Respiratory Rate Blood Pressure 100/52 O2 Sat by Pulse 100 Oximetry Constitutional: no acute distress, other (elderly looking obese AAF, normocephalic with no ventilator dyssynchrony) Eyes: non-icteric ENT: oropharynx moist, other (ETT 24 cm KARLA) Neck: supple, no lymphadenopathy Effort: mildly labored Ascultation: Bilateral: diminished breath sounds, rhonchi Percussion: Bilateral: not dull Cardiovascular: regular rate and rhythm Gastrointestinal: normoactive bowel sounds, soft, non-tender, non-distended Integumentary: rash Extremities: no cyanosis, no edema, pulses normal, no ischemia or petechiae Neurologic: unable to assess Psychiatric: other (encephalopathic) CBC and BMP: 05/17/19 05:43 05/19/19 15:02 ABG, PT/INR, D-dimer: ABG ABG pH 7.322 pH Units (7.350-7.450) L 05/20/19 04:17 ABG pCO2 37.4 mm Hg 05/20/19 04:17 ABG pO2 58.5 mm Hg (80.0-90.0) L 05/20/19 04:17 ABG O2 Saturation 91.0 % (95.0-99.0) L 05/20/19 04:17 PT/INR, D-dimer D-Dimer 3193.32 ng/mlDDU (0-234) H 05/20/19 09:06 Abnormal lab findings: Abnormal Labs 05/15/19 05/15/19 05/15/19 08:07 08:31 09:11 WBC 11.9 H RBC 3.41 L Hgb 9.3 L Hct 30.1 L MCH 27 L Lymph % (Auto) Lymph # Seg Neutrophils % Seg Neutrophils # D-Dimer ABG pH ABG pO2 ABG HCO3 ABG O2 Saturation ABG Base Excess ABG Hemoglobin Oxyhemoglobin Sodium 136 L Chloride Carbon Dioxide 15 L D BUN 74 H Creatinine 5.8 H Glucose 267 H POC Glucose 344 H Hemoglobin A1c Lactic Acid Calcium Ferritin ALT < 5 L Lactate Dehydrogenase C-Reactive Protein NT-Pro-B Natriuret Pep Albumin 3.2 L Salicylates Acetaminophen 05/15/19 05/15/19 05/15/19 09:11 09:11 09:30 WBC RBC Hgb Hct MCH Lymph % (Auto) Lymph # Seg Neutrophils % Seg Neutrophils # D-Dimer ABG pH ABG pO2 ABG HCO3 ABG O2 Saturation ABG Base Excess -2.8 L ABG Hemoglobin 8.2 L Oxyhemoglobin 94.6 L Sodium Chloride Carbon Dioxide BUN Creatinine Glucose POC Glucose Hemoglobin A1c Lactic Acid 3.50 H* Calcium Ferritin ALT Lactate Dehydrogenase C-Reactive Protein NT-Pro-B Natriuret Pep 7240 H Albumin Salicylates Acetaminophen 05/15/19 05/15/19 05/15/19 13:10 13:10 Unknown WBC RBC Hgb Hct MCH Lymph % (Auto) Lymph # Seg Neutrophils % Seg Neutrophils # D-Dimer ABG pH ABG pO2 ABG HCO3 ABG O2 Saturation ABG Base Excess ABG Hemoglobin Oxyhemoglobin Sodium Chloride Carbon Dioxide BUN Creatinine Glucose POC Glucose Hemoglobin A1c 7.7 H Lactic Acid Calcium Ferritin ALT Lactate Dehydrogenase C-Reactive Protein NT-Pro-B Natriuret Pep Albumin Salicylates < 0.3 L Acetaminophen < 5.0 L 05/16/19 05/16/19 05/16/19 03:44 03:58 13:08 WBC 12.9 H RBC Hgb Hct MCH Lymph % (Auto) 7.1 L Lymph # 0.9 L Seg Neutrophils % 87.7 H Seg Neutrophils # 11.3 H D-Dimer ABG pH ABG pO2 213.3 H ABG HCO3 ABG O2 Saturation 99.3 H ABG Base Excess ABG Hemoglobin 7.5 L Oxyhemoglobin Sodium Chloride Carbon Dioxide BUN Creatinine Glucose POC Glucose 231 H Hemoglobin A1c Lactic Acid Calcium Ferritin ALT Lactate Dehydrogenase C-Reactive Protein NT-Pro-B Natriuret Pep Albumin Salicylates Acetaminophen 05/16/19 05/16/19 05/17/19 18:28 23:34 05:02 WBC RBC Hgb Hct MCH Lymph % (Auto) Lymph # Seg Neutrophils % Seg Neutrophils # D-Dimer ABG pH ABG pO2 91.9 H ABG HCO3 ABG O2 Saturation ABG Base Excess -3.6 L ABG Hemoglobin 7.2 L Oxyhemoglobin Sodium Chloride Carbon Dioxide BUN Creatinine Glucose POC Glucose 181 H 177 H Hemoglobin A1c Lactic Acid Calcium Ferritin ALT Lactate Dehydrogenase C-Reactive Protein NT-Pro-B Natriuret Pep Albumin Salicylates Acetaminophen 05/17/19 05/17/19 05/17/19 05:43 05:43 15:15 WBC RBC 3.06 L Hgb 8.6 L Hct 26.1 L D MCH Lymph % (Auto) 6.4 L Lymph # 0.5 L Seg Neutrophils % 87.5 H Seg Neutrophils # D-Dimer ABG pH ABG pO2 ABG HCO3 ABG O2 Saturation ABG Base Excess ABG Hemoglobin Oxyhemoglobin Sodium Chloride Carbon Dioxide 17 L BUN 76 H Creatinine 5.4 H Glucose 231 H POC Glucose 302 H Hemoglobin A1c Lactic Acid Calcium Ferritin ALT Lactate Dehydrogenase C-Reactive Protein NT-Pro-B Natriuret Pep Albumin Salicylates Acetaminophen 05/17/19 05/18/19 05/18/19 18:44 00:04 05:35 WBC RBC Hgb Hct MCH Lymph % (Auto) Lymph # Seg Neutrophils % Seg Neutrophils # D-Dimer ABG pH ABG pO2 ABG HCO3 ABG O2 Saturation ABG Base Excess ABG Hemoglobin Oxyhemoglobin Sodium Chloride Carbon Dioxide BUN Creatinine Glucose POC Glucose 258 H 331 H 329 H Hemoglobin A1c Lactic Acid Calcium Ferritin ALT Lactate Dehydrogenase C-Reactive Protein NT-Pro-B Natriuret Pep Albumin Salicylates Acetaminophen 05/18/19 05/18/19 05/18/19 11:15 11:15 11:15 WBC RBC Hgb Hct MCH Lymph % (Auto) Lymph # Seg Neutrophils % Seg Neutrophils # D-Dimer 5072.66 H ABG pH ABG pO2 ABG HCO3 ABG O2 Saturation ABG Base Excess ABG Hemoglobin Oxyhemoglobin Sodium 146 H Chloride Carbon Dioxide 18 L BUN 99 H Creatinine 6.1 H Glucose 346 H POC Glucose Hemoglobin A1c Lactic Acid Calcium Ferritin 975.6 H ALT < 5 L Lactate Dehydrogenase C-Reactive Protein NT-Pro-B Natriuret Pep Albumin 3.0 L Salicylates Acetaminophen 05/18/19 05/18/19 05/18/19 11:15 11:55 18:11 WBC RBC Hgb Hct MCH Lymph % (Auto) Lymph # Seg Neutrophils % Seg Neutrophils # D-Dimer ABG pH ABG pO2 ABG HCO3 ABG O2 Saturation ABG Base Excess ABG Hemoglobin Oxyhemoglobin Sodium Chloride Carbon Dioxide BUN Creatinine Glucose POC Glucose 334 H 397 H Hemoglobin A1c Lactic Acid Calcium Ferritin ALT Lactate Dehydrogenase 483 H C-Reactive Protein 38.00 H NT-Pro-B Natriuret Pep Albumin Salicylates Acetaminophen 05/18/19 05/19/19 05/19/19 Unknown 00:30 05:07 WBC RBC Hgb Hct MCH Lymph % (Auto) Lymph # Seg Neutrophils % Seg Neutrophils # D-Dimer ABG pH ABG pO2 133.0 H 61.1 L ABG HCO3 ABG O2 Saturation 94.4 L ABG Base Excess -2.9 L -2.7 L ABG Hemoglobin 8.3 L 8.0 L Oxyhemoglobin 92.2 L Sodium Chloride Carbon Dioxide BUN Creatinine Glucose POC Glucose 321 H Hemoglobin A1c Lactic Acid Calcium Ferritin ALT Lactate Dehydrogenase C-Reactive Protein NT-Pro-B Natriuret Pep Albumin Salicylates Acetaminophen 05/19/19 05/19/19 05/19/19 05:17 12:23 15:02 WBC RBC Hgb Hct MCH Lymph % (Auto) Lymph # Seg Neutrophils % Seg Neutrophils # D-Dimer ABG pH ABG pO2 ABG HCO3 ABG O2 Saturation ABG Base Excess ABG Hemoglobin Oxyhemoglobin Sodium 147 H Chloride 108.2 H Carbon Dioxide 16 L BUN 119 H Creatinine 8.5 H Glucose 315 H POC Glucose 235 H 298 H Hemoglobin A1c Lactic Acid Calcium 8.3 L Ferritin ALT Lactate Dehydrogenase C-Reactive Protein NT-Pro-B Natriuret Pep Albumin Salicylates Acetaminophen 05/19/19 05/20/19 05/20/19 17:42 00:11 04:17 WBC RBC Hgb Hct MCH Lymph % (Auto) Lymph # Seg Neutrophils % Seg Neutrophils # D-Dimer ABG pH 7.322 L ABG pO2 58.5 L ABG HCO3 18.9 L ABG O2 Saturation 91.0 L ABG Base Excess -6.5 L ABG Hemoglobin 7.0 L Oxyhemoglobin 88.2 L Sodium Chloride Carbon Dioxide BUN Creatinine Glucose POC Glucose 310 H 277 H Hemoglobin A1c Lactic Acid Calcium Ferritin ALT Lactate Dehydrogenase C-Reactive Protein NT-Pro-B Natriuret Pep Albumin Salicylates Acetaminophen 05/20/19 05/20/19 05/20/19 05:29 09:06 09:06 WBC RBC Hgb Hct MCH Lymph % (Auto) Lymph # Seg Neutrophils % Seg Neutrophils # D-Dimer 3193.32 H ABG pH ABG pO2 ABG HCO3 ABG O2 Saturation ABG Base Excess ABG Hemoglobin Oxyhemoglobin Sodium Chloride Carbon Dioxide BUN Creatinine Glucose POC Glucose 332 H Hemoglobin A1c Lactic Acid Calcium Ferritin 1802.0 H ALT Lactate Dehydrogenase C-Reactive Protein NT-Pro-B Natriuret Pep Albumin Salicylates Acetaminophen 05/20/19 05/20/19 09:06 12:31 WBC RBC Hgb Hct MCH Lymph % (Auto) Lymph # Seg Neutrophils % Seg Neutrophils # D-Dimer ABG pH ABG pO2 ABG HCO3 ABG O2 Saturation ABG Base Excess ABG Hemoglobin Oxyhemoglobin Sodium Chloride Carbon Dioxide BUN Creatinine Glucose POC Glucose 284 H Hemoglobin A1c Lactic Acid Calcium Ferritin ALT Lactate Dehydrogenase 646 H C-Reactive Protein 56.30 H NT-Pro-B Natriuret Pep Albumin Salicylates Acetaminophen Chest x-ray: image reviewed (small lung volumes) Allied health notes reviewed: nursing
--- NOTE | 2019-05-20 20:10 | Progress Note ---
Assessment and Plan - Patient Problems (1) CKD (chronic kidney disease) stage 5, GFR less than 15 ml/min Current Visit: No Status: Acute Plan to address problem: stage V chronic kidney disease needing dialysis very soon. Hopefully we are able to wait till we can use AV graft next week. Follow-up electrolytes and renal function tomorrow. Continue to monitor volume status closely (2) Acute respiratory failure Current Visit: Yes Status: Acute Qualifiers: Respiratory failure complication: hypoxia Qualified Code(s): J96.01 - Acute respiratory failure with hypoxia Plan to address problem: continue respiratory management per pulmonary (3) Altered mental status Current Visit: Yes Status: Acute Plan to address problem: continue neuro monitoring (4) Pneumonia due to COVID-19 virus Current Visit: Yes Status: Acute Plan to address problem: continue hydroxychloroquine per infectious disease (5) Hypertensive chronic kidney disease with stage 5 chronic kidney disease or end stage renal disease Current Visit: Yes Status: Chronic Plan to address problem: follow-up blood pressure (6) Type 2 diabetes mellitus with diabetic chronic kidney disease Current Visit: Yes Status: Chronic Plan to address problem: Blood sugar management by primary attending Subjective Date of service: 05/20/19 Principal diagnosis: Ac hypoxemic resp failure; Hakeem pneumonia; Sepsis; COVID-19 infection; ESRD Interval history: patient seen lying in bed. Intubated on ventilator. Not Following commands. No interaction Objective - Exam Narrative Exam: middle-aged female lying in bed intubated on ventilator HEENT: Normocephalic atraumatic, Neck: Supple, no venous distention, no goiter CVS: S1S2 RRR [place], rub or gallop Lungs: Coarse breath sounds, Abdomen: Full, soft, nontender, no organomegaly no bruit, bowel sounds are present Extremities: No edema, no cyanosis or clubbing Urinary: Deferred Musculo-skeletal: No joint deformities or swelling Neuro: Awake, alert, no focal deficits - Vital Signs Vital signs: Vital Signs - 12hr 05/20/19 05/20/19 05/20/19 08:40 09:00 10:00 Temperature Pulse Rate 89 84 86 Pulse Rate [ From Monitor] Respiratory 16 15 Rate Blood Pressure 119/47 114/49 109/48 O2 Sat by Pulse 94 94 96 Oximetry 05/20/19 05/20/19 05/20/19 11:00 12:00 12:02 Temperature 100.6 F H Pulse Rate 89 86 87 Pulse Rate [ 86 From Monitor] Respiratory 18 17 Rate Blood Pressure 128/59 114/56 114/56 O2 Sat by Pulse 94 96 96 Oximetry 05/20/19 05/20/19 05/20/19 13:00 14:01 14:25 Temperature Pulse Rate 91 H 86 89 Pulse Rate [ From Monitor] Respiratory 18 18 Rate Blood Pressure 114/52 98/45 100/52 O2 Sat by Pulse 91 92 100 Oximetry 05/20/19 05/20/19 05/20/19 15:00 16:00 17:00 Temperature Pulse Rate 91 H 88 91 H Pulse Rate [ 89 From Monitor] Respiratory 15 18 19 Rate Blood Pressure 117/56 111/52 124/52 O2 Sat by Pulse 91 92 93 Oximetry 05/20/19 05/20/19 05/20/19 17:56 18:00 19:00 Temperature Pulse Rate 86 89 89 Pulse Rate [ From Monitor] Respiratory 20 18 Rate Blood Pressure 124/52 123/50 125/51 O2 Sat by Pulse 93 94 91 Oximetry 05/20/19 19:40 Temperature Pulse Rate 89 Pulse Rate [ From Monitor] Respiratory Rate Blood Pressure O2 Sat by Pulse Oximetry - Lab 05/17/19 05:43 05/19/19 15:02 Most recent lab results ABG pH 7.322 pH Units (7.350-7.450) L 05/20/19 04:17 ABG pCO2 37.4 mm Hg 05/20/19 04:17 ABG pO2 58.5 mm Hg (80.0-90.0) L 05/20/19 04:17 ABG HCO3 18.9 mmol/L (20.0-26.0) L 05/20/19 04:17 ABG O2 Saturation 91.0 % (95.0-99.0) L 05/20/19 04:17 Calcium 8.3 mg/dL (8.4-10.2) L 05/19/19 15:02 Medications & Allergies - Medications Allergies/Adverse Reactions: Allergies No Known Allergies Allergy (Unverified 05/10/19 15:33) Home Medications: Home Medications Medication Instructions Recorded Confirmed Last Taken Type Aspirin [Adult Aspirin] 81 mg PO DAILY 05/10/19 05/20/19 05/11/19 History Cyanocobalamin (Vitamin B-12) 2,500 mcg PO DAILY 05/10/19 05/20/19 05/11/19 History [Vitamin B12] Ferrous Sulfate [Feosol 325 MG tab] 325 mg PO DAILY 05/10/19 05/20/19 05/11/19 History Gabapentin 100 mg PO TID 05/10/19 05/20/19 05/11/19 History Insulin Aspart (Nf) [NovoLOG 100 10 unit SQ TIDAC 05/10/19 05/20/19 05/11/19 History UNITS/ML VIAL] Insulin Glargine [Lantus VIAL] 36 unit SQ QAM 05/10/19 05/20/19 05/11/19 History Tizanidine HCl [Tizanidine 2mg tab] 2 mg PO DAILY 05/10/19 05/20/19 05/11/19 History Torsemide [Demadex] 20 mg PO BID 05/10/19 05/20/19 05/11/19 History amLODIPine 10 mg PO BID 05/10/19 05/20/19 05/12/19 04:30 History calcitrioL [Rocaltrol] 0.5 mcg PO DAILY 05/10/19 05/20/19 05/11/19 History carvediloL [Coreg] 12.5 mg PO BID 05/10/19 05/20/19 05/12/19 04:30 History oxyCODONE /ACETAMINOPHEN [Percocet 1 tab PO Q6HR PRN #24 tablet 05/12/19 05/20/19 Unknown Rx 5/325 mg] Active Medications: Generic Name Dose Route Start Last Admin Trade Name Freq PRN Reason Stop Dose Admin Acetaminophen 650 mg 05/15/19 23:04 Tylenol PO Q4H PRN Pain MILD(1-3)/Fever >100.5/MELVIN Acetaminophen 650 mg 05/16/19 01:28 05/16/19 01:44 Tylenol NE 650 mg Q6H PRN Administration TEMP > 100.3 Lipase/Protease/Amylase 1 each 05/16/19 11:[address] 10,500 Unit FEEDTUBE PRN PRN For Clogged Feeding Tube Famotidine 20 mg 05/18/19 10:00 05/20/19 10:10 Pepcid PO 20 mg DAILY LUIS M Administration Heparin Sodium (Porcine) 5,000 unit 05/19/19 12:00 05/20/19 10:11 Heparin SUB-Q 5,000 unit Q12HR LUIS M Administration Hydromorphone HCl 0.25 mg 05/15/19 23:04 05/19/19 12:57 Dilaudid IV 0.25 mg Q3H PRN Administration Pain, Moderate (4-6) Hydrophilic Ointment 1 applic 05/15/19 09:48 Vaseline Lip Therapy TP Q2HR PRN Dry Lips Hydroxychloroquine Sulfate 200 mg 05/19/19 10:00 05/20/19 10:11 Plaquenil PO 05/22/19 22:01 200 mg BID LUIS M Administration Propofol 1,000 mg in 100 mls @ 2.585 mls/hr 05/15/19 11:00 05/17/19 17:51 Diprivan 10 Mg/Ml IV 35 mcg/kg/min TITR LUIS M 18.098 mls/hr Administration Protocol 5 MCG/KG/MIN Insulin Glargine 30 units 05/20/19 10:00 05/20/19 10:11 Lantus SUB-Q 30 units DAILY LUIS M Administration Insulin Human Lispro 0 unit 05/16/19 00:00 05/20/19 18:07 Humalog SUB-Q 10 unit Q6HR LUIS M Administration Protocol Metoclopramide HCl 5 mg 05/15/19 23:24 Reglan IV Q6H PRN Nausea And Vomiting Multi-Ingred Cream/Lotion/Oil/Oint 1 applic 05/15/19 09:48 Artificial Tears Ophth Oint OU Q4HR PRN Dry Eye(s) Ondansetron HCl 4 mg 05/15/19 23:04 05/19/19 18:30 Zofran IV 4 mg Q8H PRN Administration Nausea And Vomiting Simple Syrup 15 ml 05/16/19 11:14 Simple Syrup FEEDTUBE PRN PRN Hypoglycemia Simple Syrup 30 ml 05/16/19 11:14 Simple Syrup FEEDTUBE PRN PRN Hypoglycemia Sodium Bicarbonate 325 mg 05/16/19 11:14 Sodium Bicarbonate FEEDTUBE PRN PRN For Clogged Feeding Tube Sodium Bicarbonate 650 mg 05/16/19 22:00 05/20/19 10:10 Sodium Bicarbonate PO 650 mg BID LUIS M Administration Sodium Chloride 10 ml 05/16/19 10:00 05/20/19 10:11 Sodium Chloride Flush Syringe 10 Ml IV 10 ml BID LUIS M Administration Sodium Chloride 10 ml 05/15/19 23:04 Sodium Chloride Flush Syringe 10 Ml IV PRN PRN LINE FLUSH Zinc Sulfate 220 mg 05/18/19 11:00 05/20/19 11:00 Zinc Sulfate PO 05/22/19 10:59 220 mg DAILY LUIS M Administration
[2019-05-21] MEDS: INSULIN LISPRO 100 UNIT/ML SUB-Q SCH ×4 (05:12→23:47)
[2019-05-21 05:39] LABS: ABG HCO3 21.1 mmol/L (20.0-26.0); ABG Methemoglobin 0.7 % (0.0-1.5); ABG Oxygen Saturation 88.4 % (95.0-99.0); ABG PCO2 38.3 mm Hg; ABG PH 7.359 pH Units (7.350-7.450); ABG PO2 54.1 mm Hg (80.0-90.0)
[2019-05-21] MEDS ORDERED: INSULIN GLARGINE 100 UNITS/ML SUB-Q ONE ×2 (08:30→12:00)
[2019-05-21] MEDS: SODIUM BICARBONATE 650 MG TAB PO SCH ×3 (09:10→21:00)
[2019-05-21] MEDS: ACETAMINOPHEN 325 MG TAB PO PRN ×2 (09:10→16:17)
[2019-05-21] MEDS: INSULIN GLARGINE 100 UNITS/ML SUB-Q SCH (09:11)
[2019-05-21] MEDS: HYDROXYCHLOROQUINE 200 MG TAB PO SCH ×2 (09:11→21:10)
[2019-05-21] MEDS: HEPARIN 5,000 UNIT/1 ML VIAL SUB-Q SCH ×2 (09:11→21:14)
[2019-05-21] MEDS: ZINC SULFATE 220 MG CAP PO SCH (09:11)
[2019-05-21] MEDS: FAMOTIDINE 20 MG TAB PO SCH (09:11)
--- NOTE | 2019-05-21 10:02 | Progress Note ---
Assessment and Plan Cultures: Blood culture 05/15/2019 no growth to date Sputum culture 05/15/2019 Strep pneumoniae A/P: 63 y/o female with history of ESRD s/p AV graft placement 3 days before admission, admitted on 05/15/2019 for fever and drainage from the left upper extremity graft site as well as cough with whezzing and fever 102: #Severe sepsis: fever better; likely due to COVID pneumonia +/- AVG infection (per vascular not infected - duplex scan demonstrates patent graft with appropriate flow volumes and with minimal fluid noted at the venous anastomosis) #Acute Acute Respiratory Failure: intubated, due to pneumonia #Severe COVID pneumonia: COVID test positive. Now with Strep pneumoniae in sputum likely bacterial pneumonia on top of COVID. Ferritin and LDH up, Ddimer down. CT chest shows bilateral diffuse ground glass opacities. #DM: uncontrolled #ESRD on HD #vomiting Recs: Address code status with family - high risk mortality Repeat CXR Stop cefepime Start ceftriaxone 2 gm IVq day for Strep pneumoniae pneumonia Continue hydroxychloroquine 400 mg po BID x 1 day then 200 mg po x 4 days bid total 5 days Continue zinc 220 mg po q day ContinueCOVID isolationprecautions per [facility] protocol Obtain Ferritin, LDH, D-Dimer, CRP q 48h monitor fever High risk mortality Will follow Lou Bettencourt MD Infectious Diseases [employer] [facility] M [phone] O [phone] Subjective Date of service: 05/21/19 Principal diagnosis: Ac hypoxemic resp failure; Hakeem pneumonia; Sepsis; COVID-19 infection; ESRD Interval history: Remains with high fever 102 intubated FiO2 45% and p 6 Objective - Exam Narrative Exam: Constitutional: Intubated, sedated FiO2 50% p6 Head, Ears, Nose:limited due to lack of PPE Oral: Endotracheal tube Cardiovascular: Limited evaluation due to PPE shortage Respiratory: Limited evaluation due to PPE shortage GI: Limited evaluation due to PPE shortage Musculoskeletal: Limited evaluation due to PPE shortage Skin: right arm AVG with edema, erythema and heat Neurological: Sedated - Constitutional Vitals: Vital Signs Temp Pulse Resp BP Pulse Ox 101.5 F H 89 18 110/47 95 05/21/19 08:00 05/21/19 09:00 05/21/19 09:00 05/21/19 09:00 05/21/19 09:00 Temperature -Last 24 Hours Temperature 101.5 F Temperature 100.8 F Temperature 100.8 F Temperature 100.8 F Temperature 100.6 F - Labs CBC & Chem 7: 05/17/19 05:43 05/19/19 15:02 Labs: Abnormal lab results 05/20/19 05/20/19 05/20/19 Range/Units 09:06 09:06 12:31 D-Dimer 3193.32 H (0-234) ng/mlDDU ABG pO2 (80.0-90.0) mm Hg ABG O2 Saturation (95.0-99.0) % ABG Base Excess (-2.0-3.0) mmol/L ABG Hemoglobin (12.0-16.0) gm/dl Oxyhemoglobin (95.0-99.0) % POC Glucose 284 H (70-105) Ferritin 1802.0 H (13.0-400.0) ng/mL 05/20/19 05/20/19 05/21/19 Range/Units 18:18 23:43 05:04 D-Dimer (0-234) ng/mlDDU ABG pO2 (80.0-90.0) mm Hg ABG O2 Saturation (95.0-99.0) % ABG Base Excess (-2.0-3.0) mmol/L ABG Hemoglobin (12.0-16.0) gm/dl Oxyhemoglobin (95.0-99.0) % POC Glucose 355 H 394 H 394 H (70-105) Ferritin (13.0-400.0) ng/mL 05/21/19 Range/Units 05:05 D-Dimer (0-234) ng/mlDDU ABG pO2 54.1 L (80.0-90.0) mm Hg ABG O2 Saturation 88.4 L (95.0-99.0) % ABG Base Excess -4.0 L (-2.0-3.0) mmol/L ABG Hemoglobin 6.9 L (12.0-16.0) gm/dl Oxyhemoglobin 85.5 L (95.0-99.0) % POC Glucose (70-105) Ferritin (13.0-400.0) ng/mL
--- NOTE | 2019-05-21 10:51 | Progress Note ---
Assessment and Plan Assessment and plan: --Covid-19 confirmed Covid19 paperwork completed by ED F/U ferritin, LDH, D-Dimer and CRP --Acute hypoxic respiratory failure; requiring intubation On ventilatory support, nebulizers Supportive care, pulmonary critical following Wean as tolerated per pulm --Bilateral patchy groundglass opacities/pneumonia Isolation precautions, cultures ID following --Acute metabolic encephalopathy; Present on admission, probably secondary to hypoxemia --Infected AV graft for dialysis; IV antibiotics, vascular,ID following --End-stage renal disease on hemodialysis; HD per schedulen nephrology following --Type 2 diabetes mellitus; moderate control Accu-Chek sliding scale coverage ADA diet and insulin as needed HbA1c 7.7 --Moderate malnutrition/hypoalbuminemia Due to underlying disease process, nutrition supplements Nutrition consult as needed --Lactic acidosis; rule out infections Supportive care --DVT prophylaxis; Lovenox --Obesity BMI 31.6; Patient needs weight reduction when medically stable --Full CODE STATUS; Monitor closely and adjust management as needed Very poor prognosis Plan of care reviewed with the patient's nurse 05/18/2019 Covid-19 confirmed Patient currently with AC mode, rate20, tidal volume 450, FiO2 50% and PEEP 6. Continue hydroxychloroquine 400 mg p.o. twPatient is critically ill with poor prognosis. Wean as tolerated per pulmonarice daily x1 day then 200 mg p.o. x 4 twice daily for 5 days. Continue cefepime per ID. Follow-up inflammatory markers of ferritin, LDH, d-dimer and CRP. 05/19/19 Patient currently with AC mode, rate20, tidal volume 450, FiO2 50% and PEEP 6. Patient is critically ill with poor prognosis. Continue Plaquenil 200 mg p.o. x 4 twice daily for 5 days. Continue cefepime per ID. Follow-up inflammatory markers of ferritin, LDH, d-dimer and CRP. Discussed confirmed positive test with daughter 05/20/2019. Continue Plaquenil taper per ID recommendations. Continue mechanical ventilation with AC mode, rate 14, tidal volume 450 and PEEP 6. Follow-up inflammatory markers of ferritin, LDH, d-dimer and CRP. 05/21/2019. Patient remains critically ill on mechanical ventilation AC mode with rate 14, tidal volume 450, FiO2 40% and PEEP of 6. Patient has strep pneumonia in sputum and likely has bacterial pneumonia exacerbated with COVID-19. Ferritin and LDH elevated but d-dimer decreased. Follow-up repeat chest x-ray. Continue antibiotics per IDceftriaxone. Continue Plaquenil/zinc. Continue COVID isolation precautions. Follow-up inflammatory markers. Patient with poor prognosis and high risk mortality. The high probability of a clinically significant, sudden or life threatening deterioration of the [immunologic and respiratory] system(s) required my full and direct attention, intervention and personal management. The aggregate critical care time was [33] minutes. This time is in addition to time spent performing reported procedures but includes the following: [x] Data Review and interpretation [x] Patient assessment and monitoring of vital signs [x] Documentation [x] Medication orders and management History Interval history: 63 y/o female with history of ESRD s/p AV graft placement 3 days before admiss n, admitted on 05/15/2019 for fever and drainage from the left upper extremity graft site as well as cough with whezzing and fever 102. The patient was intubated and remains on mechanical ventilation. Hospitalist Physical - Constitutional Vitals: Temp Pulse Resp BP Pulse Ox 101.5 F H 94 H 20 124/58 89 05/21/19 08:00 05/21/19 10:00 05/21/19 10:00 05/21/19 10:00 05/21/19 10:00 General appearance: Present: severe distress, other (Currently on a ventilator and sedated) - EENT Eyes: Present: PERRL, EOM intact ENT: hearing intact, clear oral mucosa, dentition normal - Neck Neck: Present: supple, normal ROM - Respiratory Respiratory effort: normal Respiratory: bilateral: CTA - Cardiovascular Rhythm: regular Heart Sounds: Present: S1 & S2. Absent: gallop, rub - Extremities Extremities: no ischemia, No edema, Full ROM - Abdominal General gastrointestinal: soft, non-tender, non-distended, normal bowel sounds - Integumentary Integumentary: Present: clear, warm, dry - Neurologic Neurologic: CNII-XII intact, moves all extremities Results - Labs CBC & Chem 7: 05/17/19 05:43 05/19/19 15:02 Labs: Laboratory Last Values WBC 8.2 K/mm3 (4.5-11.0) 05/17/19 05:43 RBC 3.06 M/mm3 (3.65-5.03) L 05/17/19 05:43 Hgb 8.6 gm/dl (10.1-14.3) L 05/17/19 05:43 Hct 26.1 % (30.3-42.9) L D 05/17/19 05:43 MCV 85 fl (79-97) 05/17/19 05:43 MCH 28 pg (28-32) 05/17/19 05:43 MCHC 33 % (30-34) 05/17/19 05:43 RDW 14.2 % (13.2-15.2) 05/17/19 05:43 Plt Count 230 K/mm3 (140-440) 05/17/19 05:43 Lymph % (Auto) 6.4 % (13.4-35.0) L 05/17/19 05:43 Lucas % (Auto) 4.9 % (0.0-7.3) 05/17/19 05:43 Eos % (Auto) 0.9 % (0.0-4.3) 05/17/19 05:43 Baso % (Auto) 0.3 % (0.0-1.8) 05/17/19 05:43 Lymph # 0.5 K/mm3 (1.2-5.4) L 05/17/19 05:43 Lucas # 0.4 K/mm3 (0.0-0.8) 05/17/19 05:43 Eos # 0.1 K/mm3 (0.0-0.4) 05/17/19 05:43 Baso # 0.0 K/mm3 (0.0-0.1) 05/17/19 05:43 Seg Neutrophils % 87.5 % (40.0-70.0) H 05/17/19 05:43 Seg Neutrophils # 7.2 K/mm3 (1.8-7.7) 05/17/19 05:43 D-Dimer 3193.32 ng/mlDDU (0-234) H 05/20/19 09:06 ABG pH 7.359 pH Units (7.350-7.450) 05/21/19 05:05 ABG pCO2 38.3 mm Hg 05/21/19 05:05 ABG pO2 54.1 mm Hg (80.0-90.0) L 05/21/19 05:05 ABG HCO3 21.1 mmol/L (20.0-26.0) 05/21/19 05:05 ABG O2 Saturation 88.4 % (95.0-99.0) L 05/21/19 05:05 ABG O2 Content 8.3 (0.0-44) 05/21/19 05:05 ABG Base Excess -4.0 mmol/L (-2.0-3.0) L 05/21/19 05:05 ABG Hemoglobin 6.9 gm/dl (12.0-16.0) L 05/21/19 05:05 ABG Carboxyhemoglobin 2.5 % (0.0-5.0) 05/21/19 05:05 ABG Methemoglobin 0.7 % (0.0-1.5) 05/21/19 05:05 Oxyhemoglobin 85.5 % (95.0-99.0) L 05/21/19 05:05 FiO2 40 % 05/21/19 05:05 Sodium 147 mmol/L (137-145) H 05/19/19 15:02 Potassium 3.8 mmol/L (3.6-5.0) 05/19/19 15:02 Chloride 108.2 mmol/L (98-107) H 05/19/19 15:02 Carbon Dioxide 16 mmol/L (22-30) L 05/19/19 15:02 Anion Gap 27 mmol/L 05/19/19 15:02 BUN 119 mg/dL (7-17) H 05/19/19 15:02 Creatinine 8.5 mg/dL (0.7-1.2) H 05/19/19 15:02 Estimated GFR 6 ml/min 05/19/19 15:02 BUN/Creatinine Ratio 14 % 05/19/19 15:02 Glucose 315 mg/dL (65-100) H 05/19/19 15:02 POC Glucose 394 (70-105) H 05/21/19 05:04 Hemoglobin A1c 7.7 % (4-6) H 05/15/19 Unknown Lactic Acid 1.40 mmol/L (0.7-2.0) 05/15/19 11:41 Calcium 8.3 mg/dL (8.4-10.2) L 05/19/19 15:02 Ferritin 1802.0 ng/mL (13.0-400.0) H 05/20/19 09:06 Total Bilirubin 0.30 mg/dL (0.1-1.2) 05/18/19 11:15 AST 37 units/L (5-40) 05/18/19 11:15 ALT < 5 units/L (7-56) L 05/18/19 11:15 Alkaline Phosphatase 56 units/L (35-129) 05/18/19 11:15 Lactate Dehydrogenase 646 units/L (91-180) H 05/20/19 09:06 C-Reactive Protein 56.30 mg/dL (0.00-1.30) H 05/20/19 09:06 NT-Pro-B Natriuret Pep 7240 pg/mL (0-900) H 05/15/19 09:11 Total Protein 6.8 g/dL (6.3-8.2) 05/18/19 11:15 Albumin 3.0 g/dL (3.9-5) L 05/18/19 11:15 Albumin/Globulin Ratio 0.8 % 05/18/19 11:15 Urine Color Straw (Yellow) 05/15/19 12:07 Urine Turbidity Clear (Clear) 05/15/19 12:07 Urine pH 7.0 (5.0-7.0) 05/15/19 12:07 Ur Specific Anderson 1.009 (1.003-1.030) 05/15/19 12:07 Urine Protein 100 mg/dl mg/dL (Negative) 05/15/19 12:07 Urine Glucose (UA) >=500 mg/dL (Negative) 05/15/19 12:07 Urine Ketones Neg mg/dL (Negative) 05/15/19 12:07 Urine Blood Sm (Negative) 05/15/19 12:07 Urine Nitrite Neg (Negative) 05/15/19 12:07 Urine Bilirubin Neg (Negative) 05/15/19 12:07 Urine Urobilinogen < 2.0 mg/dL (<2.0) 05/15/19 12:07 Ur Leukocyte Esterase Neg (Negative) 05/15/19 12:07 Urine WBC (Auto) 3.0 /HPF (0.0-6.0) 05/15/19 12:07 Urine RBC (Auto) 18.0 /HPF (0.0-6.0) 05/15/19 12:07 Urine Mucus Few /HPF 05/15/19 12:07 Random Vancomycin 11.9 ug/mL (0-40.0) 05/17/19 14:57 Salicylates < 0.3 mg/dL (2.8-20.0) L 05/15/19 13:10 Acetaminophen < 5.0 ug/mL (10.0-30.0) L 05/15/19 13:10 Miscellaneous Test See scanned result 05/16/19 Unknown Microbiology: Microbiology 05/15/19 Unknown Sputum - Endotracheal Wash Sputum Culture - Preliminary Streptococcus Pneumoniae 05/15/19 Unknown Peripheral/Venous Blood Culture - Final NO GROWTH AFTER 5 DAYS 05/15/19 Unknown Peripheral/Venous Blood Culture - Final NO GROWTH AFTER 5 DAYS Castellanos/IV: Voiding Method Indwelling Catheter IV Catheter Type [Left INT / Saline Lock External Jugular] IV Catheter Type [Right Wrist] INT / Saline Lock IV Catheter Type [Right INT / Saline Lock External Jugular] Active Medications - Current Medications Current Medications: Generic Name Dose Route Start Last Admin Trade Name Freq PRN Reason Stop Dose Admin Acetaminophen 650 mg 05/15/19 23:04 05/21/19 09:10 Tylenol PO 650 mg Q4H PRN Administration Pain MILD(1-3)/Fever >100.5/MELVIN Acetaminophen 650 mg 05/16/19 01:28 05/16/19 01:44 Tylenol MA 650 mg Q6H PRN Administration TEMP > 100.3 Lipase/Protease/Amylase 1 each 05/16/19 11:14 Pancreaze 10,500 Unit FEEDTUBE PRN PRN For Clogged Feeding Tube Famotidine 20 mg 05/18/19 10:00 05/21/19 09:11 Pepcid PO 20 mg DAILY LUIS M Administration Heparin Sodium (Porcine) 5,000 unit 05/19/19 12:00 05/21/19 09:11 Heparin SUB-Q 5,000 unit Q12HR LUIS M Administration Hydromorphone HCl 0.25 mg 05/15/19 23:04 05/19/19 12:57 Dilaudid IV 0.25 mg Q3H PRN Administration Pain, Moderate (4-6) Hydrophilic Ointment 1 applic 05/15/19 09:48 Vaseline Lip Therapy TP Q2HR PRN Dry Lips Hydroxychloroquine Sulfate 200 mg 05/19/19 10:00 05/21/19 09:11 Plaquenil PO 05/22/19 22:01 200 mg BID LUIS M Administration Propofol 1,000 mg in 100 mls @ 2.585 mls/hr 05/15/19 11:00 05/17/19 17:51 Diprivan 10 Mg/Ml IV 35 mcg/kg/min TITR LUIS M 18.098 mls/hr Administration Protocol 5 MCG/KG/MIN Ceftriaxone Sodium 2 gm in 100 mls @ 200 mls/hr 05/21/19 11:00 Rocephin/Ns 2 Gm/100 Ml IV Q24HR LUIS M Protocol Insulin Glargine 30 units 05/20/19 10:00 05/21/19 09:11 Lantus SUB-Q 30 units DAILY LUIS M Administration Insulin Human Lispro 0 unit 05/16/19 00:00 05/21/19 05:12 Humalog SUB-Q 10 unit Q6HR LUIS M Administration Protocol Metoclopramide HCl 5 mg 05/15/19 23:24 Reglan IV Q6H PRN Nausea And Vomiting Multi-Ingred Cream/Lotion/Oil/Oint 1 applic 05/15/19 09:48 Artificial Tears Ophth Oint OU Q4HR PRN Dry Eye(s) Ondansetron HCl 4 mg 05/15/19 23:04 05/19/19 18:30 Zofran IV 4 mg Q8H PRN Administration Nausea And Vomiting Simple Syrup 15 ml 05/16/19 11:14 Simple Syrup FEEDTUBE PRN PRN Hypoglycemia Simple Syrup 30 ml 05/16/19 11:14 Simple Syrup FEEDTUBE PRN PRN Hypoglycemia Sodium Bicarbonate 325 mg 05/16/19 11:14 Sodium Bicarbonate FEEDTUBE PRN PRN For Clogged Feeding Tube Sodium Bicarbonate 650 mg 05/16/19 22:00 05/21/19 09:10 Sodium Bicarbonate PO 650 mg BID LUIS M Administration Sodium Chloride 10 ml 05/16/19 10:00 05/21/19 09:12 Sodium Chloride Flush Syringe 10 Ml IV 10 ml BID LUIS M Administration Sodium Chloride 10 ml 05/15/19 23:04 Sodium Chloride Flush Syringe 10 Ml IV PRN PRN LINE FLUSH Zinc Sulfate 220 mg 05/18/19 11:00 05/21/19 09:11 Zinc Sulfate PO 05/22/19 10:59 220 mg DAILY LUIS M Administration Nutrition/Malnutrition Assess - Dietary Evaluation Nutrition/Malnutrition Findings: Nutrition Notes Start: 05/16/19 08:31 Freq: Status: Active Protocol: Document 05/18/19 09:22 LM (Rec: 05/18/19 09:30 LM [id number]) Nutrition Notes Initial or Follow up Reassessment Current Diagnosis CKD (stage V CKD),Diabetes, Hypertension,Respiratory Failure Other Pertinent Diagnosis AV graft infection, fever, suspected COVID-19 Current Diet Nepro 1.8 at 35ml/hr Labs/Tests POC glu 329 Pertinent Medications Humalog Height 5 ft 5 in Weight 81.8 kg [place] Body Weight (kg) 56.81 BMI 29.9 Weight change and time frame wt change noted Weight Status Obese Subjective/Other Information Nepro running at 35ml/hr and pt is tolerating TF. 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 Yes Is Patient Ambulatory and/or Out of Bed No REE-([facility]-confined to bed) [phone] Calculation Used for Recommendations [facility] Additional Notes Protein: 114g (>/=2g/kg using IBW 57kg) Fluid: per MD Nutrition Intervention Change Diet Order: TF Nutrition Support: Change to Nepro 1.8 at 45ml/hr Flush 200 ml q4h Kcal 1,944 Protein (gm) 87 Fluid (mL) 785 Goal #1 TF tolerance Goal #2 Meet at least 75% of energy and protein needs via TF Anticipated Discharge Needs: unable to determine at this time Follow-Up By: 05/22/19 Additional Comments F/U for TF tolerance, rate
[2019-05-21] MEDS: cefTRIAXone/NS 2 GM/100 ML 2 GM/100 ML BAG IV SCH (12:17)
--- NOTE | 2019-05-21 15:16 | Progress Note ---
Assessment and Plan - Patient Problems (1) CKD (chronic kidney disease) stage 5, GFR less than 15 ml/min Current Visit: No Status: Acute Plan to address problem: stage V chronic kidney disease needing dialysis very soon. Hopefully we are able to wait till we can use AV graft next week. Follow-up electrolytes and renal function tomorrow. Continue to monitor volume status closely (2) Acute respiratory failure Current Visit: Yes Status: Acute Qualifiers: Respiratory failure complication: hypoxia Qualified Code(s): J96.01 - Acute respiratory failure with hypoxia Plan to address problem: continue respiratory management per pulmonary (3) Altered mental status Current Visit: Yes Status: Acute Plan to address problem: continue neuro monitoring (4) Pneumonia due to COVID-19 virus Current Visit: Yes Status: Acute Plan to address problem: continue hydroxychloroquine per infectious disease (5) Hypertensive chronic kidney disease with stage 5 chronic kidney disease or end stage renal disease Current Visit: Yes Status: Chronic Plan to address problem: follow-up blood pressure (6) Type 2 diabetes mellitus with diabetic chronic kidney disease Current Visit: Yes Status: Chronic Plan to address problem: blood sugar is uncontrolled. Blood sugar management by primary attending (7) Metabolic acidosis Current Visit: Yes Status: Acute Plan to address problem: increase sodium bicarbonate to 3 times daily. Will need to start dialysis soon Subjective Date of service: 05/21/19 Principal diagnosis: Ac hypoxemic resp failure; Hakeem pneumonia; Sepsis; COVID-19 infection; ESRD Interval history: patient seen lying in bed. Intubated on ventilator. Not Following commands. No interaction Objective - Exam Narrative Exam: middle-aged female lying in bed intubated on ventilator HEENT: Normocephalic atraumatic, Neck: Supple, no venous distention, no goiter CVS: S1S2 RRR No murmur, rub or gallop Lungs: Coarse breath sounds, Abdomen: Full, soft, nontender, no organomegaly no bruit, bowel sounds are present Extremities: Mild edema, no cyanosis or clubbing Urinary: Deferred Musculo-skeletal: No joint deformities or swelling Neuro: Intubated on Vent - Vital Signs Vital signs: Vital Signs - 12hr 05/21/19 05/21/19 05/21/19 04:00 05:00 05:35 Temperature 100.8 F H Pulse Rate 93 H 94 H 94 H Pulse Rate [ 89 89 From Monitor] Respiratory 20 20 19 Rate Blood Pressure 131/57 123/53 127/52 O2 Sat by Pulse 91 89 89 Oximetry 05/21/19 05/21/19 05/21/19 06:00 07:00 07:52 Temperature Pulse Rate 93 H 93 H 97 H Pulse Rate [ From Monitor] Respiratory 17 19 Rate Blood Pressure 122/51 124/52 126/52 O2 Sat by Pulse 88 90 91 Oximetry 05/21/19 05/21/19 05/21/19 08:00 08:07 09:00 Temperature 101.5 F H Pulse Rate 94 H 89 Pulse Rate [ 93 H From Monitor] Respiratory 22 22 18 Rate Blood Pressure 129/57 110/47 O2 Sat by Pulse 91 92 95 Oximetry 05/21/19 05/21/19 05/21/19 10:00 11:00 11:33 Temperature Pulse Rate 94 H 86 92 H Pulse Rate [ From Monitor] Respiratory 20 19 Rate Blood Pressure 124/58 107/50 98/47 O2 Sat by Pulse 89 90 92 Oximetry 05/21/19 05/21/19 05/21/19 12:00 13:00 14:00 Temperature 101.1 F H Pulse Rate 83 85 86 Pulse Rate [ 86 From Monitor] Respiratory 21 18 18 Rate Blood Pressure 97/48 104/47 109/48 O2 Sat by Pulse 92 93 93 Oximetry 05/21/19 14:11 Temperature Pulse Rate 85 Pulse Rate [ From Monitor] Respiratory Rate Blood Pressure 109/48 O2 Sat by Pulse 92 Oximetry - Lab 05/17/19 05:43 05/19/19 15:02 Most recent lab results ABG pH 7.359 pH Units (7.350-7.450) 05/21/19 05:05 ABG pCO2 38.3 mm Hg 05/21/19 05:05 ABG pO2 54.1 mm Hg (80.0-90.0) L 05/21/19 05:05 ABG HCO3 21.1 mmol/L (20.0-26.0) 05/21/19 05:05 ABG O2 Saturation 88.4 % (95.0-99.0) L 05/21/19 05:05 Calcium 8.3 mg/dL (8.4-10.2) L 05/19/19 15:02 Medications & Allergies - Medications Allergies/Adverse Reactions: Allergies No Known Allergies Allergy (Unverified 05/10/19 15:33) Home Medications: Home Medications Medication Instructions Recorded Confirmed Last Taken Type Aspirin [Adult Aspirin] 81 mg PO DAILY 05/10/19 05/20/19 05/11/19 History Cyanocobalamin (Vitamin B-12) 2,500 mcg PO DAILY 05/10/19 05/20/19 05/11/19 History [Vitamin B12] Ferrous Sulfate [Feosol 325 MG tab] 325 mg PO DAILY 05/10/19 05/20/19 05/11/19 History Gabapentin 100 mg PO TID 05/10/19 05/20/19 05/11/19 History Insulin Aspart (Nf) [NovoLOG 100 10 unit SQ TIDAC 05/10/19 05/20/19 05/11/19 History UNITS/ML VIAL] Insulin Glargine [Lantus VIAL] 36 unit SQ QAM 05/10/19 05/20/19 05/11/19 History Tizanidine HCl [Tizanidine 2mg tab] 2 mg PO DAILY 05/10/19 05/20/19 05/11/19 History Torsemide [Demadex] 20 mg PO BID 05/10/19 05/20/19 05/11/19 History amLODIPine 10 mg PO BID 05/10/19 05/20/19 05/12/19 04:30 History calcitrioL [Rocaltrol] 0.5 mcg PO DAILY 05/10/19 05/20/19 05/11/19 History carvediloL [Coreg] 12.5 mg PO BID 05/10/19 05/20/19 05/12/19 04:30 History oxyCODONE /ACETAMINOPHEN [Percocet 1 tab PO Q6HR PRN #24 tablet 05/12/19 05/20/19 Unknown Rx 5/325 mg] Active Medications: Generic Name Dose Route Start Last Admin Trade Name Freq PRN Reason Stop Dose Admin Acetaminophen 650 mg 05/15/19 23:04 05/21/19 09:10 Tylenol PO 650 mg Q4H PRN Administration Pain MILD(1-3)/Fever >100.5/MELVIN Acetaminophen 650 mg 05/16/19 01:28 05/16/19 01:44 Tylenol NC 650 mg Q6H PRN Administration TEMP > 100.3 Lipase/Protease/Amylase 1 each 05/16/19 11:14 Pancreaze 10,500 Unit FEEDTUBE PRN PRN For Clogged Feeding Tube Famotidine 20 mg 05/18/19 10:00 05/21/19 09:11 Pepcid PO 20 mg DAILY LUIS M Administration Heparin Sodium (Porcine) 5,000 unit 05/19/19 12:00 05/21/19 09:11 Heparin SUB-Q 5,000 unit Q12HR LUIS M Administration Hydromorphone HCl 0.25 mg 05/15/19 23:04 05/19/19 12:57 Dilaudid IV 0.25 mg Q3H PRN Administration Pain, Moderate (4-6) Hydrophilic Ointment 1 applic 05/15/19 09:48 Vaseline Lip Therapy TP Q2HR PRN Dry Lips Hydroxychloroquine Sulfate 200 mg 05/19/19 10:00 05/21/19 09:11 Plaquenil PO 05/22/19 22:01 200 mg BID [facility] Administration Propofol 1,000 mg in 100 mls @ 2.585 mls/hr 05/15/19 11:00 05/17/19 17:51 Diprivan 10 Mg/Ml IV 35 mcg/kg/min TITR LUIS M 18.098 mls/hr Administration Protocol 5 MCG/KG/MIN Ceftriaxone Sodium 2 gm in 100 mls @ 200 mls/hr 05/21/19 11:00 05/21/19 12:17 Rocephin/Ns 2 Gm/100 Ml IV 200 mls/hr Q24HR [facility] Administration Protocol Insulin Glargine 40 units 05/22/19 10:00 Lantus SUB-Q DAILY [facility] Insulin Human Lispro 0 unit 05/16/19 00:00 05/21/19 12:17 Humalog SUB-Q 10 unit Q6HR [facility] Administration Protocol Metoclopramide HCl 5 mg 05/15/19 23:24 Reglan IV Q6H PRN Nausea And Vomiting Multi-Ingred Cream/Lotion/Oil/Oint 1 applic 05/15/19 09:48 Artificial Tears Ophth Oint OU Q4HR PRN Dry Eye(s) Ondansetron HCl 4 mg 05/15/19 23:04 05/19/19 18:30 Zofran IV 4 mg Q8H PRN Administration Nausea And Vomiting Simple Syrup 15 ml 05/16/19 11:14 Simple Syrup FEEDTUBE PRN PRN Hypoglycemia Simple Syrup 30 ml 05/16/19 11:14 Simple Syrup FEEDTUBE PRN PRN Hypoglycemia Sodium Bicarbonate 325 mg 05/16/19 11:14 Sodium Bicarbonate FEEDTUBE PRN PRN For Clogged Feeding Tube Sodium Bicarbonate 650 mg 05/16/19 22:00 05/21/19 09:10 Sodium Bicarbonate PO 650 mg BID LUIS M Administration Sodium Chloride 10 ml 05/16/19 10:00 05/21/19 09:12 Sodium Chloride Flush Syringe 10 Ml IV 10 ml BID LUIS M Administration Sodium Chloride 10 ml 05/15/19 23:04 Sodium Chloride Flush Syringe 10 Ml IV PRN PRN LINE FLUSH Zinc Sulfate 220 mg 05/18/19 11:00 05/21/19 09:11 Zinc Sulfate PO 05/22/19 10:59 220 mg DAILY LUIS M Administration
--- NOTE | 2019-05-21 16:21 | Progress Note ---
Assessment and Plan Acute hypoxemic respiratory failure, on mechanical ventilatory support. Bilateral pneumonia vs pulmonary edema. Bilateral pleural effusions. Severe Sepsis COVID-19 infection. End-stage renal disease, on dialysis. Acute toxic metabolic encephalopathy. Diabetes type 2. History of congestive heart failure. History of hypertension. Oropharyngeal dysphagia. Gastroesophageal reflux disease. Obesity - follow COVID result - continue airborne, droplet and contact precautions - follow serum inflammation markers - Conservative fluid management (use vasopressors including midodrine to support blood pressure). - ABG, CXR per protocol - VAP bundle addressed (continue aspiration precautions) - continue to wean supplemental oxygen to keep O2 sats > 90% - continue daily SAT's and SBT assessment - continue Bronchodilators (SHASHANK) with pulm hygiene per RT - sedation target for RASS 0 to -1 - Accuchecks with glycemic control, keep blood glucose 140-180 mg/dL while critically ill (Avoid hypoglycemia) - continue HD/UF for toxin and volume control - Avoid nephrotoxins, adjust and dose all medications fro GFR and CrCL - continue GI & VTE prophylaxis - continue QT monitoring while on plaqenil (Stop if QT interval > 500) - other COVID-19 precautions per [facility] protocol - enteral nutrition at goal rate as tolerated - prn analgesia per CPOT score - mobility protocols to prevent pressure ulcers - GI & VTE prophylaxis - Flu & pneumovax per protocol - continue other care per attending / other consultants ... re-evaluate in am & prn CONDITION: CRITICAL PROGNOSIS: GUARDED CODE STATUS: FULL CODE The high probability of a clinically significant, sudden or life threatening deterioration of the [pulmonary, renal & neurologic] system(s) required my full and direct attention, intervention and personal management. The aggregate critical care time was [34] minutes. This time is in addition to time spent performing reported procedures but includes the following: [x] Data Review and interpretation [x] Patient assessment and monitoring of vital signs [x] Documentation [x] Medication orders and management Subjective Date of service: 05/21/19 Principal diagnosis: Ac hypoxemic resp failure; Hakeem pneumonia; Sepsis; COVID-19 infection; ESRD Interval history: Patient is seen today for: Acute hypoxemic respiratory failure; Bilateral pneumonia vs pulmonary edema; Bilateral pleural effusions; Sepsis; Possible COVID-19 infection; End-stage renal disease, on dialysis; Acute toxic metabolic encephalopathy. Seen and examined at bedside; 24hour events reviewed; nursing and respiratory care staff consulted; no adverse overnight events reported to me; resting peacefully in bed; remains on MVS; AMS is persistent but sedated now; FiO2 weaning slowly; no new issues otherwise PUI?: Yes COVID19: Pending Objective Vital Signs - 12hr 05/21/19 05/21/19 05/21/19 05:00 05:35 06:00 Temperature Pulse Rate 94 H 94 H 93 H Pulse Rate [ 89 From Monitor] Respiratory 20 19 17 Rate Blood Pressure 123/53 127/52 122/51 O2 Sat by Pulse 89 89 88 Oximetry 05/21/19 05/21/19 05/21/19 07:00 07:52 08:00 Temperature 101.5 F H Pulse Rate 93 H 97 H 94 H Pulse Rate [ From Monitor] Respiratory 19 22 Rate Blood Pressure 124/52 126/52 129/57 O2 Sat by Pulse 90 91 91 Oximetry 05/21/19 05/21/19 05/21/19 08:07 09:00 10:00 Temperature Pulse Rate 89 94 H Pulse Rate [ 93 H From Monitor] Respiratory 22 18 20 Rate Blood Pressure 110/47 124/58 O2 Sat by Pulse 92 95 89 Oximetry 05/21/19 05/21/19 05/21/19 11:00 11:33 12:00 Temperature 101.1 F H Pulse Rate 86 92 H 83 Pulse Rate [ 86 From Monitor] Respiratory 19 21 Rate Blood Pressure 107/50 98/47 97/48 O2 Sat by Pulse 90 92 92 Oximetry 05/21/19 05/21/19 05/21/19 13:00 14:00 14:11 Temperature Pulse Rate 85 86 85 Pulse Rate [ From Monitor] Respiratory 18 18 Rate Blood Pressure 104/47 109/48 109/48 O2 Sat by Pulse 93 93 92 Oximetry 05/21/19 05/21/19 15:00 16:00 Temperature Pulse Rate 86 83 Pulse Rate [ 86 From Monitor] Respiratory 18 21 Rate Blood Pressure 108/45 112/50 O2 Sat by Pulse 92 92 Oximetry Constitutional: no acute distress, other (elderly looking obese AAF, no rmocephalic with no ventilator dyssynchrony) Eyes: non-icteric ENT: oropharynx moist, other (ETT 24 cm KARLA) Neck: supple, no lymphadenopathy Effort: mildly labored Ascultation: Bilateral: diminished breath sounds, rhonchi Percussion: Bilateral: not dull Cardiovascular: regular rate and rhythm Gastrointestinal: normoactive bowel sounds, soft, non-tender, non-distended Integumentary: rash Extremities: no cyanosis, no edema, pulses normal, no ischemia or petechiae Neurologic: unable to assess Psychiatric: other (encephalopathic) CBC and BMP: 05/25/19 04:01 05/25/19 04:01 ABG, PT/INR, D-dimer: ABG ABG pH 7.359 pH Units (7.350-7.450) 05/21/19 05:05 ABG pCO2 38.3 mm Hg 05/21/19 05:05 ABG pO2 54.1 mm Hg (80.0-90.0) L 05/21/19 05:05 ABG O2 Saturation 88.4 % (95.0-99.0) L 05/21/19 05:05 PT/INR, D-dimer D-Dimer 3193.32 ng/mlDDU (0-234) H 05/20/19 09:06 Abnormal lab findings: Abnormal Labs 05/15/19 05/15/19 05/15/19 08:07 08:31 09:11 WBC 11.9 H RBC 3.41 L Hgb 9.3 L Hct 30.1 L MCH 27 L Lymph % (Auto) Lymph # Seg Neutrophils % Seg Neutrophils # D-Dimer ABG pH ABG pO2 ABG HCO3 ABG O2 Saturation ABG Base Excess ABG Hemoglobin Oxyhemoglobin Sodium 136 L Chloride Carbon Dioxide 15 L D BUN 74 H Creatinine 5.8 H Glucose 267 H POC Glucose 344 H Hemoglobin A1c Lactic Acid Calcium Ferritin ALT < 5 L Lactate Dehydrogenase C-Reactive Protein NT-Pro-B Natriuret Pep Albumin 3.2 L Salicylates Acetaminophen 05/15/19 05/15/19 05/15/19 09:11 09:11 09:30 WBC RBC Hgb Hct MCH Lymph % (Auto) Lymph # Seg Neutrophils % Seg Neutrophils # D-Dimer ABG pH ABG pO2 ABG HCO3 ABG O2 Saturation ABG Base Excess -2.8 L ABG Hemoglobin 8.2 L Oxyhemoglobin 94.6 L Sodium Chloride Carbon Dioxide BUN Creatinine Glucose POC Glucose Hemoglobin A1c Lactic Acid 3.50 H* Calcium Ferritin ALT Lactate Dehydrogenase C-Reactive Protein NT-Pro-B Natriuret Pep 7240 H Albumin Salicylates Acetaminophen 05/15/19 05/15/19 05/15/19 13:10 13:10 Unknown WBC RBC Hgb Hct MCH Lymph % (Auto) Lymph # Seg Neutrophils % Seg Neutrophils # D-Dimer ABG pH ABG pO2 ABG HCO3 ABG O2 Saturation ABG Base Excess ABG Hemoglobin Oxyhemoglobin Sodium Chloride Carbon Dioxide BUN Creatinine Glucose POC Glucose Hemoglobin A1c 7.7 H Lactic Acid Calcium Ferritin ALT Lactate Dehydrogenase C-Reactive Protein NT-Pro-B Natriuret Pep Albumin Salicylates < 0.3 L Acetaminophen < 5.0 L 05/16/19 05/16/19 05/16/19 03:44 03:58 13:08 WBC 12.9 H RBC Hgb Hct MCH Lymph % (Auto) 7.1 L Lymph # 0.9 L Seg Neutrophils % 87.7 H Seg Neutrophils # 11.3 H D-Dimer ABG pH ABG pO2 213.3 H ABG HCO3 ABG O2 Saturation 99.3 H ABG Base Excess ABG Hemoglobin 7.5 L Oxyhemoglobin Sodium Chloride Carbon Dioxide BUN Creatinine Glucose POC Glucose 231 H Hemoglobin A1c Lactic Acid Calcium Ferritin ALT Lactate Dehydrogenase C-Reactive Protein NT-Pro-B Natriuret Pep Albumin Salicylates Acetaminophen 05/16/19 05/16/19 05/17/19 18:28 23:34 05:02 WBC RBC Hgb Hct MCH Lymph % (Auto) Lymph # Seg Neutrophils % Seg Neutrophils # D-Dimer ABG pH ABG pO2 91.9 H ABG HCO3 ABG O2 Saturation ABG Base Excess -3.6 L ABG Hemoglobin 7.2 L Oxyhemoglobin Sodium Chloride Carbon Dioxide BUN Creatinine Glucose POC Glucose 181 H 177 H Hemoglobin A1c Lactic Acid Calcium Ferritin ALT Lactate Dehydrogenase C-Reactive Protein NT-Pro-B Natriuret Pep Albumin Salicylates Acetaminophen 05/17/19 05/17/19 05/17/19 05:43 05:43 15:15 WBC RBC 3.06 L Hgb 8.6 L Hct 26.1 L D MCH Lymph % (Auto) 6.4 L Lymph # 0.5 L Seg Neutrophils % 87.5 H Seg Neutrophils # D-Dimer ABG pH ABG pO2 ABG HCO3 ABG O2 Saturation ABG Base Excess ABG Hemoglobin Oxyhemoglobin Sodium Chloride Carbon Dioxide 17 L BUN 76 H Creatinine 5.4 H Glucose 231 H POC Glucose 302 H Hemoglobin A1c Lactic Acid Calcium Ferritin ALT Lactate Dehydrogenase C-Reactive Protein NT-Pro-B Natriuret Pep Albumin Salicylates Acetaminophen 05/17/19 05/18/19 05/18/19 18:44 00:04 05:35 WBC RBC Hgb Hct MCH Lymph % (Auto) Lymph # Seg Neutrophils % Seg Neutrophils # D-Dimer ABG pH ABG pO2 ABG HCO3 ABG O2 Saturation ABG Base Excess ABG Hemoglobin Oxyhemoglobin Sodium Chloride Carbon Dioxide BUN Creatinine Glucose POC Glucose 258 H 331 H 329 H Hemoglobin A1c Lactic Acid Calcium Ferritin ALT Lactate Dehydrogenase C-Reactive Protein NT-Pro-B Natriuret Pep Albumin Salicylates Acetaminophen 05/18/19 05/18/19 05/18/19 11:15 11:15 11:15 WBC RBC Hgb Hct MCH Lymph % (Auto) Lymph # Seg Neutrophils % Seg Neutrophils # D-Dimer 5072.66 H ABG pH ABG pO2 ABG HCO3 ABG O2 Saturation ABG Base Excess ABG Hemoglobin Oxyhemoglobin Sodium 146 H Chloride Carbon Dioxide 18 L BUN 99 H Creatinine 6.1 H Glucose 346 H POC Glucose Hemoglobin A1c Lactic Acid Calcium Ferritin 975.6 H ALT < 5 L Lactate Dehydrogenase C-Reactive Protein NT-Pro-B Natriuret Pep Albumin 3.0 L Salicylates Acetaminophen 05/18/19 05/18/19 05/18/19 11:15 11:55 18:11 WBC RBC Hgb Hct MCH Lymph % (Auto) Lymph # Seg Neutrophils % Seg Neutrophils # D-Dimer ABG pH ABG pO2 ABG HCO3 ABG O2 Saturation ABG Base Excess ABG Hemoglobin Oxyhemoglobin Sodium Chloride Carbon Dioxide BUN Creatinine Glucose POC Glucose 334 H 397 H Hemoglobin A1c Lactic Acid Calcium Ferritin ALT Lactate Dehydrogenase 483 H C-Reactive Protein 38.00 H NT-Pro-B Natriuret Pep Albumin Salicylates Acetaminophen 05/18/19 05/19/19 05/19/19 Unknown 00:30 05:07 WBC RBC Hgb Hct MCH Lymph % (Auto) Lymph # Seg Neutrophils % Seg Neutrophils # D-Dimer ABG pH ABG pO2 133.0 H 61.1 L ABG HCO3 ABG O2 Saturation 94.4 L ABG Base Excess -2.9 L -2.7 L ABG Hemoglobin 8.3 L 8.0 L Oxyhemoglobin 92.2 L Sodium Chloride Carbon Dioxide BUN Creatinine Glucose POC Glucose 321 H Hemoglobin A1c Lactic Acid Calcium Ferritin ALT Lactate Dehydrogenase C-Reactive Protein NT-Pro-B Natriuret Pep Albumin Salicylates Acetaminophen 05/19/19 05/19/19 05/19/19 05:17 12:23 15:02 WBC RBC Hgb Hct MCH Lymph % (Auto) Lymph # Seg Neutrophils % Seg Neutrophils # D-Dimer ABG pH ABG pO2 ABG HCO3 ABG O2 Saturation ABG Base Excess ABG Hemoglobin Oxyhemoglobin Sodium 147 H Chloride 108.2 H Carbon Dioxide 16 L BUN 119 H Creatinine 8.5 H Glucose 315 H POC Glucose 235 H 298 H Hemoglobin A1c Lactic Acid Calcium 8.3 L Ferritin ALT Lactate Dehydrogenase C-Reactive Protein NT-Pro-B Natriuret Pep Albumin Salicylates Acetaminophen 05/19/19 05/20/19 05/20/19 17:42 00:11 04:17 WBC RBC Hgb Hct MCH Lymph % (Auto) Lymph # Seg Neutrophils % Seg Neutrophils # D-Dimer ABG pH 7.322 L ABG pO2 58.5 L ABG HCO3 18.9 L ABG O2 Saturation 91.0 L ABG Base Excess -6.5 L ABG Hemoglobin 7.0 L Oxyhemoglobin 88.2 L Sodium Chloride Carbon Dioxide BUN Creatinine Glucose POC Glucose 310 H 277 H Hemoglobin A1c Lactic Acid Calcium Ferritin ALT Lactate Dehydrogenase C-Reactive Protein NT-Pro-B Natriuret Pep Albumin Salicylates Acetaminophen 05/20/19 05/20/19 05/20/19 05:29 09:06 09:06 WBC RBC Hgb Hct MCH Lymph % (Auto) Lymph # Seg Neutrophils % Seg Neutrophils # D-Dimer 3193.32 H ABG pH ABG pO2 ABG HCO3 ABG O2 Saturation ABG Base Excess ABG Hemoglobin Oxyhemoglobin Sodium Chloride Carbon Dioxide BUN Creatinine Glucose POC Glucose 332 H Hemoglobin A1c Lactic Acid Calcium Ferritin 1802.0 H ALT Lactate Dehydrogenase C-Reactive Protein NT-Pro-B Natriuret Pep Albumin Salicylates Acetaminophen 05/20/19 05/20/19 05/20/19 09:06 12:31 18:18 WBC RBC Hgb Hct MCH Lymph % (Auto) Lymph # Seg Neutrophils % Seg Neutrophils # D-Dimer ABG pH ABG pO2 ABG HCO3 ABG O2 Saturation ABG Base Excess ABG Hemoglobin Oxyhemoglobin Sodium Chloride Carbon Dioxide BUN Creatinine Glucose POC Glucose 284 H 355 H Hemoglobin A1c Lactic Acid Calcium Ferritin ALT Lactate Dehydrogenase 646 H C-Reactive Protein 56.30 H NT-Pro-B Natriuret Pep Albumin Salicylates Acetaminophen 05/20/19 05/21/19 05/21/19 23:43 05:04 05:05 WBC RBC Hgb Hct MCH Lymph % (Auto) Lymph # Seg Neutrophils % Seg Neutrophils # D-Dimer ABG pH ABG pO2 54.1 L ABG HCO3 ABG O2 Saturation 88.4 L ABG Base Excess -4.0 L ABG Hemoglobin 6.9 L Oxyhemoglobin 85.5 L Sodium Chloride Carbon Dioxide BUN Creatinine Glucose POC Glucose 394 H 394 H Hemoglobin A1c Lactic Acid Calcium Ferritin ALT Lactate Dehydrogenase C-Reactive Protein NT-Pro-B Natriuret Pep Albumin Salicylates Acetaminophen 05/21/19 12:14 WBC RBC Hgb Hct MCH Lymph % (Auto) Lymph # Seg Neutrophils % Seg Neutrophils # D-Dimer ABG pH ABG pO2 ABG HCO3 ABG O2 Saturation ABG Base Excess ABG Hemoglobin Oxyhemoglobin Sodium Chloride Carbon Dioxide BUN Creatinine Glucose POC Glucose 457 H Hemoglobin A1c Lactic Acid Calcium Ferritin ALT Lactate Dehydrogenase C-Reactive Protein NT-Pro-B Natriuret Pep Albumin Salicylates Acetaminophen Chest x-ray: pending Allied health notes reviewed: nursing
[2019-05-21] MEDS ORDERED: ALBUMIN HUMAN 25% (25 GM/100 ML) INJ IV ONE (22:00)
[2019-05-21] MEDS ORDERED: SODIUM CHLORIDE 0.9% 250ML 250 ML IV ONE ×2 (22:00→22:40)
[2019-05-21 23:31] LABS: ABG Base Excess -4.8 mmol/L (-2.0-3.0); ABG HCO3 21.5 mmol/L (20.0-26.0); ABG Methemoglobin 0.5 % (0.0-1.5); ABG Oxygen Saturation 91.6 % (95.0-99.0); ABG PCO2 46.7 mm Hg; ABG PH 7.281 pH Units (7.350-7.450); ABG PO2 61.2 mm Hg (80.0-90.0)
[2019-05-21] MEDS: NORepinephrine/NS 4 MG-250 ML 4 MG/250 ML BAG IV SCH (23:46)
[2019-05-22] MEDS: INSULIN LISPRO 100 UNIT/ML SUB-Q SCH ×3 (05:15→17:43)
[2019-05-22 05:44] LABS: Mean Corpuscular HGB Conc 32 % (30-34); Mean Corpuscular Volume 89 fl (79-97); Red Blood Count 2.47 M/mm3 (3.65-5.03); Red Cell Distribution Width 16.3 % (13.2-15.2)
[2019-05-22 05:47] LABS: Calcium 8.7 mg/dL (8.4-10.2); Platelet Count 264 K/mm3 (140-440)
[2019-05-22] MEDS: ZINC SULFATE 220 MG CAP PO SCH (09:04)
[2019-05-22] MEDS: FAMOTIDINE 20 MG TAB PO SCH (09:04)
[2019-05-22] MEDS: SODIUM BICARBONATE 650 MG TAB PO SCH ×3 (09:04→21:46)
[2019-05-22] MEDS: HYDROXYCHLOROQUINE 200 MG TAB PO SCH ×2 (09:04→21:46)
[2019-05-22] MEDS: cefTRIAXone/NS 2 GM/100 ML 2 GM/100 ML BAG IV SCH (09:05)
[2019-05-22] MEDS: HEPARIN 5,000 UNIT/1 ML VIAL SUB-Q SCH ×2 (09:05→21:47)
[2019-05-22] MEDS ORDERED: SODIUM CHLORIDE 0.9% 100 ML IV PRN (09:06)
--- NOTE | 2019-05-22 09:40 | Progress Note ---
Assessment and Plan Acute hypoxemic respiratory failure orally intubated on MVS COVID 19 POSITIVE Bilateral pneumonia Oropharyngeal dysphagia Acute metabolic encephalopathy Infected AV graft for dialysis; ESRD on HD Type 2 diabetes mellitus; moderate control Lactic acidosis, present on admission Hypernatremia Increase PEEP to 8, decrease RR to 16 For HD today once trialysis catheter is placed ABG in the morning Consider Ivermectin and Acterma( off label) use- will discuss with ID in view of worsening respiratory status clinically Vasopressor support as indicated fro MAP<65 Conservative fluid management Continue all critical care as outlined below -Continue with MVS, Lung protective strategies, monitor airway pressures -VAP bundle addressed -Continue aspiration precautions, HOB>40 -Continue daily assessment for readiness for SBT -Continue Stress ulcer prophylaxis -Continue VTE prophylaxis -Supportive transfusions as indicated to keep HgB >7g/dL -Continue enteric nutritional support at goal rate. Monitor glycemic control, with target blood glucose 140-180 mg/dL while critically ill. -Avoid hypoglycemia- Poor glycemic control -Continue free water flushes for hypernatremia. Monitor - Continue to wean supplemental oxygen for target O2 sats > 90% -ABG and CXR in am -ContinueCOVID isolationprecautions per [facility] protocol -Continue to avoid nephrotoxins, adjust all medications for GFR and CrCL -Supportive HD per renal service - Continue bronchodilators with pulmonary hygiene - Continue prn analgesia per CPOT score - Continue to maintain of sleep-wake cycle, avoid delirium - PT/OT/ROM exercises - Continue mobility protocol , off loading and skin assessment per protocol for pressure ulcer prevention - continue other care per attending / other consultants CONDITION: CRITICAL PROGNOSIS: GUARDED CODE STATUS: FULL CODE The high probability of a clinically significant, sudden or life-threatening deterioration of the [respiratory, renal, Neurology] system(s) required my full and direct attention, intervention and personal management. The aggregate critical care time was [35] minutes without overlap. Time includes spent on; [x] Data Review and interpretation [x] Patient assessment and monitoring of vital signs [x] Documentation [x] Medication orders and management Subjective Date of service: 05/22/19 Principal diagnosis: LOI on CKD Interval history: Patient is seen today for: Acute hypoxemic respiratory failure orally intubated on MVS;COVID 19 POSITIVE;Bilateral pneumonia;Oropharyngeal dysphagia ;Acute metabolic encephalopathy Seen and examined at bedside; 24hour events reviewed; nursing and respiratory care staff consulted; no adverse overnight events reported to me; Vitals, labs, medications, chart reviewed. 05/19/2019 On gong fevers Temperature max of 104.9., off Propofol and remains calm. Orally intubated on MVS. Episodes of vomiting, tube feeding on hold. Hyperglycemia, currently on Plaquenil Day 03/22. On Cefepime and Vancomycin 12 lead EKG today QTc <500 05/22/2019 desaturations requiring FIO2 increase to 65% Currently on AC-VC 14/450/6/65% ET 7.5cm at 22 AATL Required norepinephrine support over night briefly OGT in place, Nepro at goal. Hyperglycemia, sub-optimal glycemic control Castellanos catheter in place Trialysis catheter to be placed- to initiate HD today On going fevers with Tmax 101.5 On Rocephin for Strep in tracheal aspirate, Day 06/19 of Plaquenil Inflammatory markers pending Objective Vital Signs - 12hr 05/21/19 05/21/19 05/21/19 21:52 22:00 23:00 Temperature Pulse Rate 73 67 65 Pulse Rate [ 79 From Monitor] Respiratory 16 16 Rate Blood Pressure 101/43 91/37 81/40 O2 Sat by Pulse 89 86 90 Oximetry 05/21/19 05/21/19 05/22/19 23:50 23:58 00:00 Temperature 98.6 F Pulse Rate 94 H 93 H 94 H Pulse Rate [ 79 From Monitor] Respiratory 30 H 27 H Rate Blood Pressure 86/42 90/42 O2 Sat by Pulse 92 93 94 Oximetry 05/22/19 05/22/19 05/22/19 00:06 01:00 02:00 Temperature Pulse Rate 98 H 88 84 Pulse Rate [ From Monitor] Respiratory 30 H 25 H 25 H Rate Blood Pressure 196/66 115/43 115/51 O2 Sat by Pulse 94 91 92 Oximetry 05/22/19 05/22/19 05/22/19 03:00 03:45 04:00 Temperature 98.6 F Pulse Rate 85 82 81 Pulse Rate [ From Monitor] Respiratory 20 25 H Rate Blood Pressure 118/53 123/56 133/58 O2 Sat by Pulse 92 94 94 Oximetry 05/22/19 05/22/19 05/22/19 05:00 06:00 07:00 Temperature Pulse Rate 86 80 82 Pulse Rate [ From Monitor] Respiratory 25 H 25 H 25 H Rate Blood Pressure 133/58 122/53 140/59 O2 Sat by Pulse 94 95 95 Oximetry 05/22/19 05/22/19 08:00 08:33 Temperature Pulse Rate 78 81 Pulse Rate [ 80 From Monitor] Respiratory 25 H Rate Blood Pressure 114/53 124/58 O2 Sat by Pulse 95 93 Oximetry Constitutional: no acute distress, other (sedated) Eyes: non-icteric ENT: oropharynx moist, other (ETT at 22cm at the lip, NGT ) Neck: supple, no lymphadenopathy Effort: normal Ascultation: Bilateral: clear, diminished breath sounds, rhonchi Percussion: Bilateral: not dull Cardiovascular: regular rate and rhythm, other (S1,S2) Gastrointestinal: normoactive bowel sounds, soft, non-tender, non-distended Integumentary: normal Extremities: no cyanosis, no edema Neurologic: pupils equal and round, unable to assess (sedated) Psychiatric: other (encephalopathic) CBC and BMP: 05/22/19 04:48 05/22/19 04:48 ABG, PT/INR, D-dimer: ABG ABG pH 7.281 pH Units (7.350-7.450) L 05/21/19 23:25 ABG pCO2 46.7 mm Hg 05/21/19 23:25 ABG pO2 61.2 mm Hg (80.0-90.0) L 05/21/19 23:25 ABG O2 Saturation 91.6 % (95.0-99.0) L 05/21/19 23:25 PT/INR, D-dimer D-Dimer 3193.32 ng/mlDDU (0-234) H 05/20/19 09:06 Abnormal lab findings: Abnormal Labs 05/15/19 05/15/19 05/15/19 08:07 08:31 09:11 WBC 11.9 H RBC 3.41 L Hgb 9.3 L Hct 30.1 L MCH 27 L RDW Lymph % (Auto) Lymph # Seg Neutrophils % Seg Neutrophils # D-Dimer ABG pH ABG pO2 ABG HCO3 ABG O2 Saturation ABG Base Excess ABG Hemoglobin Oxyhemoglobin Sodium 136 L Chloride Carbon Dioxide 15 L D BUN 74 H Creatinine 5.8 H Glucose 267 H POC Glucose 344 H Hemoglobin A1c Lactic Acid Calcium Ferritin ALT < 5 L Lactate Dehydrogenase C-Reactive Protein NT-Pro-B Natriuret Pep Albumin 3.2 L Salicylates Acetaminophen 05/15/19 05/15/19 05/15/19 09:11 09:11 09:30 WBC RBC Hgb Hct MCH RDW Lymph % (Auto) Lymph # Seg Neutrophils % Seg Neutrophils # D-Dimer ABG pH ABG pO2 ABG HCO3 ABG O2 Saturation ABG Base Excess -2.8 L ABG Hemoglobin 8.2 L Oxyhemoglobin 94.6 L Sodium Chloride Carbon Dioxide BUN Creatinine Glucose POC Glucose Hemoglobin A1c Lactic Acid 3.50 H* Calcium Ferritin ALT Lactate Dehydrogenase C-Reactive Protein NT-Pro-B Natriuret Pep 7240 H Albumin Salicylates Acetaminophen 05/15/19 05/15/19 05/15/19 13:10 13:10 Unknown WBC RBC Hgb Hct MCH RDW Lymph % (Auto) Lymph # Seg Neutrophils % Seg Neutrophils # D-Dimer ABG pH ABG pO2 ABG HCO3 ABG O2 Saturation ABG Base Excess ABG Hemoglobin Oxyhemoglobin Sodium Chloride Carbon Dioxide BUN Creatinine Glucose POC Glucose Hemoglobin A1c 7.7 H Lactic Acid Calcium Ferritin ALT Lactate Dehydrogenase C-Reactive Protein NT-Pro-B Natriuret Pep Albumin Salicylates < 0.3 L Acetaminophen < 5.0 L 05/16/19 05/16/19 05/16/19 03:44 03:58 13:08 WBC 12.9 H RBC Hgb Hct MCH RDW Lymph % (Auto) 7.1 L Lymph # 0.9 L Seg Neutrophils % 87.7 H Seg Neutrophils # 11.3 H D-Dimer ABG pH ABG pO2 213.3 H ABG HCO3 ABG O2 Saturation 99.3 H ABG Base Excess ABG Hemoglobin 7.5 L Oxyhemoglobin Sodium Chloride Carbon Dioxide BUN Creatinine Glucose POC Glucose 231 H Hemoglobin A1c Lactic Acid Calcium Ferritin ALT Lactate Dehydrogenase C-Reactive Protein NT-Pro-B Natriuret Pep Albumin Salicylates Acetaminophen 05/16/19 05/16/19 05/17/19 18:28 23:34 05:02 WBC RBC Hgb Hct MCH RDW Lymph % (Auto) Lymph # Seg Neutrophils % Seg Neutrophils # D-Dimer ABG pH ABG pO2 91.9 H ABG HCO3 ABG O2 Saturation ABG Base Excess -3.6 L ABG Hemoglobin 7.2 L Oxyhemoglobin Sodium Chloride Carbon Dioxide BUN Creatinine Glucose POC Glucose 181 H 177 H Hemoglobin A1c Lactic Acid Calcium Ferritin ALT Lactate Dehydrogenase C-Reactive Protein NT-Pro-B Natriuret Pep Albumin Salicylates Acetaminophen 05/17/19 05/17/19 05/17/19 05:43 05:43 15:15 WBC RBC 3.06 L Hgb 8.6 L Hct 26.1 L D MCH RDW Lymph % (Auto) 6.4 L Lymph # 0.5 L Seg Neutrophils % 87.5 H Seg Neutrophils # D-Dimer ABG pH ABG pO2 ABG HCO3 ABG O2 Saturation ABG Base Excess ABG Hemoglobin Oxyhemoglobin Sodium Chloride Carbon Dioxide 17 L BUN 76 H Creatinine 5.4 H Glucose 231 H POC Glucose 302 H Hemoglobin A1c Lactic Acid Calcium Ferritin ALT Lactate Dehydrogenase C-Reactive Protein NT-Pro-B Natriuret Pep Albumin Salicylates Acetaminophen 05/17/19 05/18/19 05/18/19 18:44 00:04 05:35 WBC RBC Hgb Hct MCH RDW Lymph % (Auto) Lymph # Seg Neutrophils % Seg Neutrophils # D-Dimer ABG pH ABG pO2 ABG HCO3 ABG O2 Saturation ABG Base Excess ABG Hemoglobin Oxyhemoglobin Sodium Chloride Carbon Dioxide BUN Creatinine Glucose POC Glucose 258 H 331 H 329 H Hemoglobin A1c Lactic Acid Calcium Ferritin ALT Lactate Dehydrogenase C-Reactive Protein NT-Pro-B Natriuret Pep Albumin Salicylates Acetaminophen 05/18/19 05/18/19 05/18/19 11:15 11:15 11:15 WBC RBC Hgb Hct MCH RDW Lymph % (Auto) Lymph # Seg Neutrophils % Seg Neutrophils # D-Dimer 5072.66 H ABG pH ABG pO2 ABG HCO3 ABG O2 Saturation ABG Base Excess ABG Hemoglobin Oxyhemoglobin Sodium 146 H Chloride Carbon Dioxide 18 L BUN 99 H Creatinine 6.1 H Glucose 346 H POC Glucose Hemoglobin A1c Lactic Acid Calcium Ferritin 975.6 H ALT < 5 L Lactate Dehydrogenase C-Reactive Protein NT-Pro-B Natriuret Pep Albumin 3.0 L Salicylates Acetaminophen 05/18/19 05/18/19 05/18/19 11:15 11:55 18:11 WBC RBC Hgb Hct MCH RDW Lymph % (Auto) Lymph # Seg Neutrophils % Seg Neutrophils # D-Dimer ABG pH ABG pO2 ABG HCO3 ABG O2 Saturation ABG Base Excess ABG Hemoglobin Oxyhemoglobin Sodium Chloride Carbon Dioxide BUN Creatinine Glucose POC Glucose 334 H 397 H Hemoglobin A1c Lactic Acid Calcium Ferritin ALT Lactate Dehydrogenase 483 H C-Reactive Protein 38.00 H NT-Pro-B Natriuret Pep Albumin Salicylates Acetaminophen 05/18/19 05/19/19 05/19/19 Unknown 00:30 05:07 WBC RBC Hgb Hct MCH RDW Lymph % (Auto) Lymph # Seg Neutrophils % Seg Neutrophils # D-Dimer ABG pH ABG pO2 133.0 H 61.1 L ABG HCO3 ABG O2 Saturation 94.4 L ABG Base Excess -2.9 L -2.7 L ABG Hemoglobin 8.3 L 8.0 L Oxyhemoglobin 92.2 L Sodium Chloride Carbon Dioxide BUN Creatinine Glucose POC Glucose 321 H Hemoglobin A1c Lactic Acid Calcium Ferritin ALT Lactate Dehydrogenase C-Reactive Protein NT-Pro-B Natriuret Pep Albumin Salicylates Acetaminophen 05/19/19 05/19/19 05/19/19 05:17 12:23 15:02 WBC RBC Hgb Hct MCH RDW Lymph % (Auto) Lymph # Seg Neutrophils % Seg Neutrophils # D-Dimer ABG pH ABG pO2 ABG HCO3 ABG O2 Saturation ABG Base Excess ABG Hemoglobin Oxyhemoglobin Sodium 147 H Chloride 108.2 H Carbon Dioxide 16 L BUN 119 H Creatinine 8.5 H Glucose 315 H POC Glucose 235 H 298 H Hemoglobin A1c Lactic Acid Calcium 8.3 L Ferritin ALT Lactate Dehydrogenase C-Reactive Protein NT-Pro-B Natriuret Pep Albumin Salicylates Acetaminophen 05/19/19 05/20/19 05/20/19 17:42 00:11 04:17 WBC RBC Hgb Hct MCH RDW Lymph % (Auto) Lymph # Seg Neutrophils % Seg Neutrophils # D-Dimer ABG pH 7.322 L ABG pO2 58.5 L ABG HCO3 18.9 L ABG O2 Saturation 91.0 L ABG Base Excess -6.5 L ABG Hemoglobin 7.0 L Oxyhemoglobin 88.2 L Sodium Chloride Carbon Dioxide BUN Creatinine Glucose POC Glucose 310 H 277 H Hemoglobin A1c Lactic Acid Calcium Ferritin ALT Lactate Dehydrogenase C-Reactive Protein NT-Pro-B Natriuret Pep Albumin Salicylates Acetaminophen 05/20/19 05/20/19 05/20/19 05:29 09:06 09:06 WBC RBC Hgb Hct MCH RDW Lymph % (Auto) Lymph # Seg Neutrophils % Seg Neutrophils # D-Dimer 3193.32 H ABG pH ABG pO2 ABG HCO3 ABG O2 Saturation ABG Base Excess ABG Hemoglobin Oxyhemoglobin Sodium Chloride Carbon Dioxide BUN Creatinine Glucose POC Glucose 332 H Hemoglobin A1c Lactic Acid Calcium Ferritin 1802.0 H ALT Lactate Dehydrogenase C-Reactive Protein NT-Pro-B Natriuret Pep Albumin Salicylates Acetaminophen 05/20/19 05/20/19 05/20/19 09:06 12:31 18:18 WBC RBC Hgb Hct MCH RDW Lymph % (Auto) Lymph # Seg Neutrophils % Seg Neutrophils # D-Dimer ABG pH ABG pO2 ABG HCO3 ABG O2 Saturation ABG Base Excess ABG Hemoglobin Oxyhemoglobin Sodium Chloride Carbon Dioxide BUN Creatinine Glucose POC Glucose 284 H 355 H Hemoglobin A1c Lactic Acid Calcium Ferritin ALT Lactate Dehydrogenase 646 H C-Reactive Protein 56.30 H NT-Pro-B Natriuret Pep Albumin Salicylates Acetaminophen 05/20/19 05/21/19 05/21/19 23:43 05:04 05:05 WBC RBC Hgb Hct MCH RDW Lymph % (Auto) Lymph # Seg Neutrophils % Seg Neutrophils # D-Dimer ABG pH ABG pO2 54.1 L ABG HCO3 ABG O2 Saturation 88.4 L ABG Base Excess -4.0 L ABG Hemoglobin 6.9 L Oxyhemoglobin 85.5 L Sodium Chloride Carbon Dioxide BUN Creatinine Glucose POC Glucose 394 H 394 H Hemoglobin A1c Lactic Acid Calcium Ferritin ALT Lactate Dehydrogenase C-Reactive Protein NT-Pro-B Natriuret Pep Albumin Salicylates Acetaminophen 05/21/19 05/21/19 05/21/19 12:14 17:41 23:25 WBC RBC Hgb Hct MCH RDW Lymph % (Auto) Lymph # Seg Neutrophils % Seg Neutrophils # D-Dimer ABG pH 7.281 L ABG pO2 61.2 L ABG HCO3 ABG O2 Saturation 91.6 L ABG Base Excess -4.8 L ABG Hemoglobin 6.2 L Oxyhemoglobin 88.9 L Sodium Chloride Carbon Dioxide BUN Creatinine Glucose POC Glucose 457 H 427 H Hemoglobin A1c Lactic Acid Calcium Ferritin ALT Lactate Dehydrogenase C-Reactive Protein NT-Pro-B Natriuret Pep Albumin Salicylates Acetaminophen 05/21/19 05/22/19 05/22/19 23:45 04:35 04:48 WBC RBC Hgb Hct MCH RDW Lymph % (Auto) Lymph # Seg Neutrophils % Seg Neutrophils # D-Dimer ABG pH ABG pO2 ABG HCO3 ABG O2 Saturation ABG Base Excess ABG Hemoglobin Oxyhemoglobin Sodium Chloride Carbon Dioxide 17 L BUN 176 H Creatinine 12.0 H Glucose 493 H POC Glucose 453 H 470 H Hemoglobin A1c Lactic Acid Calcium Ferritin ALT Lactate Dehydrogenase C-Reactive Protein NT-Pro-B Natriuret Pep Albumin Salicylates Acetaminophen 05/22/19 04:48 WBC 12.0 H RBC 2.47 L Hgb 7.0 L Hct 22.0 L MCH RDW 16.3 H Lymph % (Auto) Lymph # Seg Neutrophils % Seg Neutrophils # D-Dimer ABG pH ABG pO2 ABG HCO3 ABG O2 Saturation ABG Base Excess ABG Hemoglobin Oxyhemoglobin Sodium Chloride Carbon Dioxide BUN Creatinine Glucose POC Glucose Hemoglobin A1c Lactic Acid Calcium Ferritin ALT Lactate Dehydrogenase C-Reactive Protein NT-Pro-B Natriuret Pep Albumin Salicylates Acetaminophen Allied health notes reviewed: RT
[2019-05-22 09:49] LABS: ABG HCO3 20.5 mmol/L (20.0-26.0); ABG Methemoglobin 0.6 % (0.0-1.5); ABG Oxygen Saturation 90.2 % (95.0-99.0); ABG PCO2 39.6 mm Hg; ABG PH 7.331 pH Units (7.350-7.450); ABG PO2 62.5 mm Hg (80.0-90.0)
[2019-05-22] MEDS ORDERED: INSULIN GLARGINE 100 UNITS/ML SUB-Q SCH (10:00)
[2019-05-22 10:40] LABS: C-Reactive Protein 57.2 mg/dL (0.00-1.30)
--- NOTE | 2019-05-22 11:13 | Progress Note ---
Assessment and Plan - Patient Problems (1) CKD (chronic kidney disease) stage 5, GFR less than 15 ml/min Current Visit: No Status: Acute Plan to address problem: With worsening renal parameters, would recommend that we initiate HD today. Discuss with vascular surgery, and will have vascath placed for initiation as her new AVG has not matured for use at this time. Placed HD orders for 3 consecutive days. Will monitor renal function daily. (2) Acute encephalopathy Current Visit: Yes Status: Acute Plan to address problem: With worsening renal clearance, concerned that uremic can also be contributing to her metal status. Plan to initiate HD today. (3) Acute respiratory failure Current Visit: Yes Status: Acute Qualifiers: Respiratory failure complication: hypoxia Qualified Code(s): J96.01 - Acute respiratory failure with hypoxia Plan to address problem: Management per primary attending/ICU team. (4) Pneumonia due to COVID-19 virus Current Visit: Yes Status: Acute Plan to address problem: Management per ID recommendations. (5) Hypertensive chronic kidney disease with stage 5 chronic kidney disease or end stage renal disease Current Visit: Yes Status: Chronic Plan to address problem: Monitor on current regimen. (6) Type 2 diabetes mellitus with diabetic chronic kidney disease Current Visit: Yes Status: Chronic Plan to address problem: DM management per primary attending. Subjective Date of service: 05/22/19 Principal diagnosis: LOI on CKD Interval history: Seen this am, remains intubated, labs reviewed and with persistent metabolic acidosis with concerns for worsening azotemia/uremia, will have her initiated on HD today. Objective - Vital Signs Vital signs: Vital Signs - 12hr 05/21/19 05/21/19 05/22/19 23:50 23:58 00:00 Temperature 98.6 F Pulse Rate 94 H 93 H 94 H Pulse Rate [ 79 From Monitor] Respiratory 30 H 27 H Rate Respiratory Rate [denies] Blood Pressure 86/42 90/42 O2 Sat by Pulse 92 93 94 Oximetry 05/22/19 05/22/19 05/22/19 00:06 01:00 02:00 Temperature Pulse Rate 98 H 88 84 Pulse Rate [ From Monitor] Respiratory 30 H 25 H 25 H Rate Respiratory Rate [denies] Blood Pressure 196/66 115/43 115/51 O2 Sat by Pulse 94 91 92 Oximetry 05/22/19 05/22/19 05/22/19 03:00 03:45 04:00 Temperature 98.6 F Pulse Rate 85 82 81 Pulse Rate [ From Monitor] Respiratory 20 25 H Rate Respiratory Rate [denies] Blood Pressure 118/53 123/56 133/58 O2 Sat by Pulse 92 94 94 Oximetry 05/22/19 05/22/19 05/22/19 05:00 06:00 07:00 Temperature Pulse Rate 86 80 82 Pulse Rate [ From Monitor] Respiratory 25 H 25 H 25 H Rate Respiratory Rate [denies] Blood Pressure 133/58 122/53 140/59 O2 Sat by Pulse 94 95 95 Oximetry 05/22/19 05/22/19 05/22/19 08:00 08:33 09:00 Temperature Pulse Rate 78 81 81 Pulse Rate [ 80 From Monitor] Respiratory 25 H 25 H Rate Respiratory Rate [denies] Blood Pressure 114/53 124/58 136/59 O2 Sat by Pulse 95 93 95 Oximetry 05/22/19 05/22/19 10:00 11:00 Temperature Pulse Rate 79 79 Pulse Rate [ From Monitor] Respiratory 25 H 25 H Rate Respiratory 25 H Rate [denies] Blood Pressure 129/57 123/49 O2 Sat by Pulse 93 93 Oximetry - General Appearance General appearance: sedated on ventilator, intubated EENT: ATNC Neck: no JVD Respiratory: Present: Decreased Breath Sounds Cardiology: regular, S1S2 Gastrointestinal: normal Integumentary: no rash Musculoskeletal: deferred - Lab 05/22/19 04:48 05/22/19 04:48 Most recent lab results ABG pH 7.331 pH Units (7.350-7.450) L 05/22/19 09:33 ABG pCO2 39.6 mm Hg 05/22/19 09:33 ABG pO2 62.5 mm Hg (80.0-90.0) L 05/22/19 09:33 ABG HCO3 20.5 mmol/L (20.0-26.0) 05/22/19 09:33 ABG O2 Saturation 90.2 % (95.0-99.0) L 05/22/19 09:33 Calcium 8.7 mg/dL (8.4-10.2) 05/22/19 04:48 - Allied health notes Allied health notes reviewed: nursing Medications & Allergies - Medications Allergies/Adverse Reactions: Allergies No Known Allergies Allergy (Unverified 05/10/19 15:33) Home Medications: Home Medications Medication Instructions Recorded Confirmed Last Taken Type Aspirin [Adult Aspirin] 81 mg PO DAILY 05/10/19 05/20/19 05/11/19 History Cyanocobalamin (Vitamin B-12) 2,500 mcg PO DAILY 05/10/19 05/20/19 05/11/19 History [Vitamin B12] Ferrous Sulfate [Feosol 325 MG tab] 325 mg PO DAILY 05/10/19 05/20/19 05/11/19 History Gabapentin 100 mg PO TID 05/10/19 05/20/19 05/11/19 History Insulin Aspart (Nf) [NovoLOG 100 10 unit SQ TIDAC 05/10/19 05/20/19 05/11/19 History UNITS/ML VIAL] Insulin Glargine [Lantus VIAL] 36 unit SQ QAM 05/10/19 05/20/19 05/11/19 History Tizanidine HCl [Tizanidine 2mg tab] 2 mg PO DAILY 05/10/19 05/20/19 05/11/19 History Torsemide [Demadex] 20 mg PO BID 05/10/19 05/20/19 05/11/19 History amLODIPine 10 mg PO BID 05/10/19 05/20/19 05/12/19 04:30 History calcitrioL [Rocaltrol] 0.5 mcg PO DAILY 05/10/19 05/20/19 05/11/19 History carvediloL [Coreg] 12.5 mg PO BID 05/10/19 05/20/19 05/12/19 04:30 History oxyCODONE /ACETAMINOPHEN [Percocet 1 tab PO Q6HR PRN #24 tablet 05/12/19 05/20/19 Unknown Rx 5/325 mg] Active Medications: Generic Name Dose Route Start Last Admin Trade Name Freq PRN Reason Stop Dose Admin Acetaminophen 650 mg 05/15/19 23:04 05/21/19 16:17 Tylenol PO 650 mg Q4H PRN Administration Pain MILD(1-3)/Fever >100.5/MELVIN Acetaminophen 650 mg 05/16/19 01:28 05/16/19 01:44 Tylenol [place] 650 mg Q6H PRN Administration TEMP > 100.3 Lipase/Protease/Amylase 1 each 05/16/19 11:[address] 10,500 Unit FEEDTUBE PRN PRN For Clogged Feeding Tube Famotidine 20 mg 05/18/19 10:00 05/22/19 09:04 Pepcid PO 20 mg DAILY LUIS M Administration Heparin Sodium (Porcine) 5,000 unit 05/19/19 12:00 05/22/19 09:05 Heparin SUB-Q 5,000 unit Q12HR LUIS M Administration Hydromorphone HCl 0.25 mg 05/15/19 23:04 05/19/19 12:57 Dilaudid IV 0.25 mg Q3H PRN Administration Pain, Moderate (4-6) Hydrophilic Ointment 1 applic 05/15/19 09:48 Vaseline Lip Therapy TP Q2HR PRN Dry Lips Hydroxychloroquine Sulfate 200 mg 05/19/19 10:00 05/22/19 09:04 Plaquenil PO 05/22/19 22:01 200 mg BID LUIS M Administration Propofol 1,000 mg in 100 mls @ 2.585 mls/hr 05/15/19 11:00 05/17/19 17:51 Diprivan 10 Mg/Ml IV 35 mcg/kg/min TITR LUIS M 18.098 mls/hr Administration Protocol 5 MCG/KG/MIN Ceftriaxone Sodium 2 gm in 100 mls @ 200 mls/hr 05/21/19 11:00 05/22/19 09:05 Rocephin/Ns 2 Gm/100 Ml IV 200 mls/hr Q24HR LUIS M Administration Protocol Norepinephrine 4 mg in 250 mls @ 18.75 mls/hr 05/21/19 23:45 05/22/19 00:22 Levophed Drip 4 Mg/Ns 250 Ml IV 0 mcg/min TITR LUIS M 0 mls/hr Titration Protocol 5 MCG/MIN Sodium Chloride 100 mls @ 999 mls/hr 05/22/19 09:06 Nacl 0.9% IV COBY PRN Hypotension Insulin Glargine 10 units 05/22/19 12:00 Lantus SUB-Q 05/22/19 12:01 ONCE ONE Insulin Glargine 25 units 05/23/19 10:00 Lantus SUB-Q BID LUIS M Insulin Human Lispro 0 unit 05/16/19 00:00 05/22/19 05:15 Humalog SUB-Q 10 unit Q6HR LUIS M Administration Protocol Insulin Human Regular 10 units 05/22/19 12:00 Humulin R SUB-Q Q6HR LUIS M Metoclopramide HCl 5 mg 05/15/19 23:24 Reglan IV Q6H PRN Nausea And Vomiting Multi-Ingred Cream/Lotion/Oil/Oint 1 applic 05/15/19 09:48 Artificial Tears Ophth Oint OU Q4HR PRN Dry Eye(s) Ondansetron HCl 4 mg 05/15/19 23:04 05/19/19 18:30 Zofran IV 4 mg Q8H PRN Administration Nausea And Vomiting Simple Syrup 15 ml 05/16/19 11:14 Simple Syrup FEEDTUBE PRN PRN Hypoglycemia Simple Syrup 30 ml 05/16/19 11:14 Simple Syrup FEEDTUBE PRN PRN Hypoglycemia Sodium Bicarbonate 325 mg 05/16/19 11:14 Sodium Bicarbonate FEEDTUBE PRN PRN For Clogged Feeding Tube Sodium Bicarbonate 650 mg 05/21/19 15:00 05/22/19 09:04 Sodium Bicarbonate PO 650 mg TID LUIS M Administration Sodium Chloride 10 ml 05/16/19 10:00 05/22/19 09:05 Sodium Chloride Flush Syringe 10 Ml IV 10 ml BID LUIS M Administration Sodium Chloride 10 ml 05/15/19 23:04 Sodium Chloride Flush Syringe 10 Ml IV PRN PRN LINE FLUSH
[2019-05-22] MEDS ORDERED: INSULIN GLARGINE 100 UNITS/ML SUB-Q ONE (12:00)
--- NOTE | 2019-05-22 12:27 | Progress Note ---
Assessment and Plan Assessment and plan: --Covid-19 confirmed Covid19 paperwork completed by ED F/U ferritin, LDH, D-Dimer and CRP --Acute hypoxic respiratory failure; requiring intubation On ventilatory support, nebulizers Supportive care, pulmonary critical following Wean as tolerated per pulm --Bilateral patchy groundglass opacities/pneumonia Isolation precautions, cultures ID following --Acute metabolic encephalopathy; Present on admission, probably secondary to hypoxemia --Infected AV graft for dialysis; IV antibiotics, vascular,ID following --End-stage renal disease on hemodialysis; HD per schedulen nephrology following --Type 2 diabetes mellitus; moderate control Accu-Chek sliding scale coverage ADA diet and insulin as needed HbA1c 7.7 --Moderate malnutrition/hypoalbuminemia Due to underlying disease process, nutrition supplements Nutrition consult as needed --Lactic acidosis; rule out infections Supportive care --DVT prophylaxis; Lovenox --Obesity BMI 31.6; Patient needs weight reduction when medically stable --Full CODE STATUS; Monitor closely and adjust management as needed Very poor prognosis Plan of care reviewed with the patient's nurse 05/18/2019 Covid-19 confirmed Patient currently with AC mode, rate20, tidal volume 450, FiO2 50% and PEEP 6. Continue hydroxychloroquine 400 mg p.o. twPatient is critically ill with poor prognosis. Wean as tolerated per pulmonarice daily x1 day then 200 mg p.o. x 4 twice daily for 5 days. Continue cefepime per ID. Follow-up inflammatory markers of ferritin, LDH, d-dimer and CRP. 05/19/19 Patient currently with AC mode, rate20, tidal volume 450, FiO2 50% and PEEP 6. Patient is critically ill with poor prognosis. Continue Plaquenil 200 mg p.o. x 4 twice daily for 5 days. Continue cefepime per ID. Follow-up inflammatory markers of ferritin, LDH, d-dimer and CRP. Discussed confirmed positive test with daughter 05/20/2019. Continue Plaquenil taper per ID recommendations. Continue mechanical ventilation with AC mode, rate 14, tidal volume 450 and PEEP 6. Follow-up inflammatory markers of ferritin, LDH, d-dimer and CRP. 05/21/2019. Patient remains critically ill on mechanical ventilation AC mode with rate 14, tidal volume 450, FiO2 40% and PEEP of 6. Patient has strep pneumonia in sputum and likely has bacterial pneumonia exacerbated with COVID-19. Ferritin and LDH elevated but d-dimer decreased. Follow-up repeat chest x-ray. Continue antibiotics per IDceftriaxone. Continue Plaquenil/zinc. Continue COVID isolation precautions. Follow-up inflammatory markers. Patient with poor prognosis and high risk mortality. 05/22/2019. Patient remains critically ill on mechanical ventilation AC mode with rate 25, tidal volume 450, FiO2 65% and PEEP of 8. Patient has strep pneumonia in sputum and likely has bacterial pneumonia exacerbated with COVID-19. Ferritin and LDH elevated but d-dimer decreased. Follow-up repeat chest x-ray. Continue antibiotics per IDceftriaxone. Continue Plaquenil/zinc. Continue COVID isolation precautions. Follow-up inflammatory markers. Continue hemodialysis per nephrology and evaluate on a daily basis. Patient with poor prognosis and high risk mortality. The high probability of a clinically significant, sudden or life threatening deterioration of the [immunologic and respiratory] system(s) required my full and direct attention, intervention and personal management. The aggregate critical care time was [32] minutes. This time is in addition to time spent performing reported procedures but includes the following: [x] Data Review and interpretation [x] Patient assessment and monitoring of vital signs [x] Documentation [x] Medication orders and management History Interval history: 63 y/o female with history of ESRD s/p AV graft placement 3 days before admission, admitted on 05/15/2019 for fever and drainage from the left upper extremity graft site as well as cough with whezzing and fever 102. The patient was intubated and remains on mechanical ventilation. Hospitalist Physical - Constitutional Vitals: Temp Pulse Resp BP Pulse Ox 98.6 F 78 25 H 125/79 93 05/22/19 04:00 05/22/19 11:40 05/22/19 11:00 05/22/19 11:40 05/22/19 11:40 General appearance: Present: severe distress, other (Currently on a ventilator and sedated) - EENT Eyes: Present: PERRL, EOM intact ENT: hearing intact, clear oral mucosa, dentition normal - Neck Neck: Present: supple, normal ROM - Respiratory Respiratory effort: normal Respiratory: bilateral: CTA - Cardiovascular Rhythm: regular Heart Sounds: Present: S1 & S2. Absent: gallop, rub - Extremities Extremities: no ischemia, No edema, Full ROM - Abdominal General gastrointestinal: soft, non-tender, non-distended, normal bowel sounds - Integumentary Integumentary: Present: clear, warm, dry - Neurologic Neurologic: CNII-XII intact, moves all extremities Results - Labs CBC & Chem 7: 05/22/19 04:48 05/22/19 04:48 Labs: Laboratory Last Values WBC 12.0 K/mm3 (4.5-11.0) H 05/22/19 04:48 RBC 2.47 M/mm3 (3.65-5.03) L 05/22/19 04:48 Hgb 7.0 gm/dl (10.1-14.3) L 05/22/19 04:48 Hct 22.0 % (30.3-42.9) L 05/22/19 04:48 MCV 89 fl (79-97) 05/22/19 04:48 MCH 28 pg (28-32) 05/22/19 04:48 MCHC 32 % (30-34) 05/22/19 04:48 RDW 16.3 % (13.2-15.2) H 05/22/19 04:48 Plt Count 264 K/mm3 (140-440) 05/22/19 04:48 Lymph % (Auto) 6.4 % (13.4-35.0) L 05/17/19 05:43 [place] % (Auto) 4.9 % (0.0-7.3) 05/17/19 05:43 Eos % (Auto) 0.9 % (0.0-4.3) 05/17/19 05:43 Baso % (Auto) 0.3 % (0.0-1.8) 05/17/19 05:43 Lymph # 0.5 K/mm3 (1.2-5.4) L 05/17/19 05:43 [place] # 0.4 K/mm3 (0.0-0.8) 05/17/19 05:43 Eos # 0.1 K/mm3 (0.0-0.4) 05/17/19 05:43 Baso # 0.0 K/mm3 (0.0-0.1) 05/17/19 05:43 Seg Neutrophils % 87.5 % (40.0-70.0) H 05/17/19 05:43 Seg Neutrophils # 7.2 K/mm3 (1.8-7.7) 05/17/19 05:43 D-Dimer 3193.32 ng/mlDDU (0-234) H 05/20/19 09:06 ABG pH 7.331 pH Units (7.350-7.450) L 05/22/19 09:33 ABG pCO2 39.6 mm Hg 05/22/19 09:33 ABG pO2 62.5 mm Hg (80.0-90.0) L 05/22/19 09:33 ABG HCO3 20.5 mmol/L (20.0-26.0) 05/22/19 09:33 ABG O2 Saturation 90.2 % (95.0-99.0) L 05/22/19 09:33 ABG O2 Content 8.1 (0.0-44) 05/22/19 09:33 ABG Base Excess -5.0 mmol/L (-2.0-3.0) L 05/22/19 09:33 ABG Hemoglobin 6.4 gm/dl (12.0-16.0) L 05/22/19 09:33 ABG Carboxyhemoglobin 2.0 % (0.0-5.0) 05/22/19 09:33 ABG Methemoglobin 0.6 % (0.0-1.5) 05/22/19 09:33 Oxyhemoglobin 87.8 % (95.0-99.0) L 05/22/19 09:33 FiO2 21 % 05/22/19 09:33 Sodium 143 mmol/L (137-145) 05/22/19 04:48 Potassium 4.8 mmol/L (3.6-5.0) D 05/22/19 04:48 Chloride 102.8 mmol/L (98-107) 05/22/19 04:48 Carbon Dioxide 17 mmol/L (22-30) L 05/22/19 04:48 Anion Gap 28 mmol/L 05/22/19 04:48 BUN 176 mg/dL (7-17) H 05/22/19 04:48 Creatinine 12.0 mg/dL (0.7-1.2) H 05/22/19 04:48 Estimated GFR 4 ml/min 05/22/19 04:48 BUN/Creatinine Ratio 15 % 05/22/19 04:48 Glucose 493 mg/dL (65-100) H 05/22/19 04:48 POC Glucose 470 (70-105) H 05/22/19 04:35 Hemoglobin A1c 7.7 % (4-6) H 05/15/19 Unknown Lactic Acid 1.40 mmol/L (0.7-2.0) 05/15/19 11:41 Calcium 8.7 mg/dL (8.4-10.2) 05/22/19 04:48 Ferritin 1802.0 ng/mL (13.0-400.0) H 05/20/19 09:06 Total Bilirubin 0.30 mg/dL (0.1-1.2) 05/18/19 11:15 AST 37 units/L (5-40) 05/18/19 11:15 ALT < 5 units/L (7-56) L 05/18/19 11:15 Alkaline Phosphatase 56 units/L (35-129) 05/18/19 11:15 Lactate Dehydrogenase 978 units/L (91-180) H 05/22/19 04:48 C-Reactive Protein 57.20 mg/dL (0.00-1.30) H 05/22/19 04:48 NT-Pro-B Natriuret Pep 7240 pg/mL (0-900) H 05/15/19 09:11 Total Protein 6.8 g/dL (6.3-8.2) 05/18/19 11:15 Albumin 3.0 g/dL (3.9-5) L 05/18/19 11:15 Albumin/Globulin Ratio 0.8 % 05/18/19 11:15 Urine Color Straw (Yellow) 05/15/19 12:07 Urine Turbidity Clear (Clear) 05/15/19 12:07 Urine pH 7.0 (5.0-7.0) 05/15/19 12:07 Ur Specific [place] 1.009 (1.003-1.030) 05/15/19 12:07 Urine Protein 100 mg/dl mg/dL (Negative) 05/15/19 12:07 Urine Glucose (UA) >=500 mg/dL (Negative) 05/15/19 12:07 Urine Ketones Neg mg/dL (Negative) 05/15/19 12:07 Urine Blood Sm (Negative) 05/15/19 12:07 Urine Nitrite Neg (Negative) 05/15/19 12:07 Urine Bilirubin Neg (Negative) 05/15/19 12:07 Urine Urobilinogen < 2.0 mg/dL (<2.0) 05/15/19 12:07 Ur Leukocyte Esterase Neg (Negative) 05/15/19 12:07 Urine WBC (Auto) 3.0 /HPF (0.0-6.0) 05/15/19 12:07 Urine RBC (Auto) 18.0 /HPF (0.0-6.0) 05/15/19 12:07 Urine Mucus Few /HPF 05/15/19 12:07 Random Vancomycin 11.9 ug/mL (0-40.0) 05/17/19 14:57 Salicylates < 0.3 mg/dL (2.8-20.0) L 05/15/19 13:10 Acetaminophen < 5.0 ug/mL (10.0-30.0) L 05/15/19 13:10 Miscellaneous Test See scanned result 05/16/19 Unknown Castellanos/IV: Voiding Method Indwelling Catheter IV Catheter Type [Left INT / Saline Lock External Jugular] IV Catheter Type [Right Wrist] INT / Saline Lock IV Catheter Type [Right INT / Saline Lock External Jugular] Active Medications - Current Medications Current Medications: Generic Name Dose Route Start Last Admin Trade Name Freq PRN Reason Stop Dose Admin Acetaminophen 650 mg 05/15/19 23:04 05/21/19 16:17 Tylenol PO 650 mg Q4H PRN Administration Pain MILD(1-3)/Fever >100.5/MELVIN Acetaminophen 650 mg 05/16/19 01:28 05/16/19 01:44 Tylenol ME 650 mg Q6H PRN Administration TEMP > 100.3 Lipase/Protease/Amylase 1 each 05/16/19 11:[address] 10,500 Unit FEEDTUBE PRN PRN For Clogged Feeding Tube Famotidine 20 mg 05/18/19 10:00 05/22/19 09:04 Pepcid PO 20 mg DAILY LUIS M Administration Heparin Sodium (Porcine) 5,000 unit 05/19/19 12:00 05/22/19 09:05 Heparin SUB-Q 5,000 unit Q12HR LUIS M Administration Hydromorphone HCl 0.25 mg 05/15/19 23:04 05/19/19 12:57 Dilaudid IV 0.25 mg Q3H PRN Administration Pain, Moderate (4-6) Hydrophilic Ointment 1 applic 05/15/19 09:48 Vaseline Lip Therapy TP Q2HR PRN Dry Lips Hydroxychloroquine Sulfate 200 mg 05/19/19 10:00 05/22/19 09:04 Plaquenil PO 05/22/19 22:01 200 mg BID LUIS M Administration Propofol 1,000 mg in 100 mls @ 2.585 mls/hr 05/15/19 11:00 05/17/19 17:51 Diprivan 10 Mg/Ml IV 35 mcg/kg/min TITR LUIS M 18.098 mls/hr Administration Protocol 5 MCG/KG/MIN Ceftriaxone Sodium 2 gm in 100 mls @ 200 mls/hr 05/21/19 11:00 05/22/19 09:05 Rocephin/Ns 2 Gm/100 Ml IV 200 mls/hr Q24HR LUIS M Administration Protocol Norepinephrine 4 mg in 250 mls @ 18.75 mls/hr 05/21/19 23:45 05/22/19 00:22 Levophed Drip 4 Mg/Ns 250 Ml IV 0 mcg/min TITR LUIS M 0 mls/hr Titration Protocol 5 MCG/MIN Sodium Chloride 100 mls @ 999 mls/hr 05/22/19 09:06 Nacl 0.9% IV COBY PRN Hypotension Insulin Glargine 25 units 05/23/19 10:00 Lantus SUB-Q BID [facility] Insulin Human Lispro 0 unit 05/16/19 00:00 05/22/19 05:15 Humalog SUB-Q 10 unit Q6HR [facility] Administration Protocol Insulin Human Regular 10 units 05/22/19 12:00 Humulin R SUB-Q Q6HR [facility] Metoclopramide HCl 5 mg 05/15/19 23:24 Reglan IV Q6H PRN Nausea And Vomiting Multi-Ingred Cream/Lotion/Oil/Oint 1 applic 05/15/19 09:48 Artificial Tears Ophth Oint OU Q4HR PRN Dry Eye(s) Ondansetron HCl 4 mg 05/15/19 23:04 05/19/19 18:30 Zofran IV 4 mg Q8H PRN Administration Nausea And Vomiting Simple Syrup 15 ml 05/16/19 11:14 Simple Syrup FEEDTUBE PRN PRN Hypoglycemia Simple Syrup 30 ml 05/16/19 11:14 Simple Syrup FEEDTUBE PRN PRN Hypoglycemia Sodium Bicarbonate 325 mg 05/16/19 11:14 Sodium Bicarbonate FEEDTUBE PRN PRN For Clogged Feeding Tube Sodium Bicarbonate 650 mg 05/21/19 15:00 05/22/19 09:04 Sodium Bicarbonate PO 650 mg TID LUIS M Administration Sodium Chloride 10 ml 05/16/19 10:00 05/22/19 09:05 Sodium Chloride Flush Syringe 10 Ml IV 10 ml BID LUIS M Administration Sodium Chloride 10 ml 05/15/19 23:04 Sodium Chloride Flush Syringe 10 Ml IV PRN PRN LINE FLUSH Nutrition/Malnutrition Assess - Dietary Evaluation Nutrition/Malnutrition Findings: Nutrition Notes Start: 05/16/19 08:31 Freq: Status: Active Protocol: Document 05/22/19 09:52 LM (Rec: 05/22/19 09:56 LM [id number]) Nutrition Notes Initial or Follow up Reassessment Current Diagnosis CKD (stage V CKD),Diabetes, Hypertension,Respiratory Failure Other Pertinent Diagnosis AV graft infection, fever, COVID-19 positive Current Diet Nepro 1.8 at 45ml/hr Labs/Tests BG 493 Pertinent Medications Humalog Lantus Levophed Zinc Height 5 ft 5 in Weight 82.8 kg [place] Body Weight (kg) 56.81 BMI 30.4 Weight Status Obese Subjective/Other Information Pt tolerating TF at goal rate. Percent of energy/protein needs met: 100%/76% Burn Absent Trauma Absent Current % PO Negligible Minimum of two criteria No Reduced Through Operator Strength Measurably Reduced (severe) #1 Nutrition Diagnosis Inadequate oral intake Diagnosis Progress(for reassessment Continues documentation) Is patient on ventilator? Yes Is Patient Ambulatory and/or Out of Bed No REE-([facility]-confined to bed) 1585.304 Calculation Used for Recommendations [facility] Additional Notes Protein: 114g (>/=2g/kg using IBW 57kg) Fluid: per Nutrition Intervention Change Diet Order: TF Nutrition Support: Nepro 1.8 at 45ml/hr Flush 200 ml q4h Kcal 1,944 Protein (gm) 87 Fluid (mL) 785 Goal #1 TF tolerance Goal #2 Meet at least 75% of energy and protein needs via TF Anticipated Discharge Needs: unable to determine at this time Follow-Up By: 05/29/19 Additional Comments F/U for TF tolerance
--- NOTE | 2019-05-22 12:47 | Post Operative Note ---
Date of procedure: 05/22/19 Pre-op diagnosis: ESRD requiring HD access Post-op diagnosis: same Findings: Due to COVID infection and HOB dependent oxygenation, groin access was decided upon. Procedure: R CFV trialysis catheter placement Anesthesia: local Surgeon: AMRITA CARLSON Estimated blood loss: minimal Condition: stable Disposition: no change
--- NOTE | 2019-05-22 12:48 | Operative Report ---
Operative Report Operative Report: EXAM: 1. Ultrasound-guided puncture of the right common femoral vein 2. Placement of a right common femoral vein triple-lumen nontunneled noncuffed hemodialysis catheter. DATE: 05/22/2019 INDICATION: Acute on chronic renal failure requiring hemodialysis access. MEDICATIONS: Local anesthetic (1% lidocaine). DEVICES: Triple lumen nontunneled noncuffed hemodialysis catheter MAINTENANCE PLANNER: AMRITA CARLSON MD CONTRAST: None PROCEDURE: The risks, benefits, and alternatives were discussed and informed consent was obtained. The patient's right common femoral vein was assessed with ultrasound at bedside and determined to be patent prior to procedure. The patient was prepped and draped in a sterile fashion. The puncture site was anesthetized. Under sonographic guidance, the right common femoral vein was punctured with a 18-gauge micropuncture needle and a 0.035 inch wire was advanced through the needle. Over the 0.035 inch wire, dilatation was performed. The catheter was advanced over the wire. 2-0 nylon suture was used to secure the catheter. The peripheral dialysis lumens of the catheter were charged with heparin 1000 units/mL of space. The central dialysis lumen was charged with saline. Biopatch and tegaderm were applied. FINDINGS: 1. Ultrasound documented patency of the right common femoral vein. The vessel was accessed under direct ultrasound guidance. IMPRESSION: 1. Successful ultrasound guided bedside placement of a right common femoral vein triple-lumen nontunneled noncuffed hemodialysis catheter.
[2019-05-22] MEDS: INSULIN REGULAR, HUMAN 100 UNITS/1 ML SUB-Q SCH ×2 (13:28→17:44)
--- NOTE | 2019-05-22 14:24 | Progress Note ---
Assessment and Plan Cultures: Blood culture 05/15/2019 no growth to date Sputum culture 05/15/2019 Strep pneumoniae A/P: 63 y/o female with history of ESRD s/p AV graft placement 3 days before admission, admitted on 05/15/2019 for fever and drainage from the left upper extremity graft site as well as cough with whezzing and fever 102: #Severe sepsis: fever better; likely due to COVID pneumonia +/- AVG infection (per vascular not infected - duplex scan demonstrates patent graft with appropriate flow volumes and with minimal fluid noted at the venous anastomosis) #Acute Acute Respiratory Failure: intubated, due to pneumonia - worsening #Severe COVID pneumonia: COVID test positive. Now with Strep pneumoniae in sputum likely bacterial pneumonia on top of COVID. Ferritin and LDH up, Ddimer up CT chest shows bilateral diffuse ground glass opacities. CXR better #DM: uncontrolled #ESRD on HD had vas cath placed for HD #vomiting Recs: Will try one dose of po ivermectin (off labe use), inhibits COVID replication in vitro - Discussed with Dr Rios Address code status with family - high risk mortality Continue ceftriaxone 2 gm IVq day for Strep pneumoniae pneumonia Continue hydroxychloroquine total 5 days Day 5 of 5 Continue zinc 220 mg po q day ContinueCOVID isolationprecautions per [facility] protocol Obtain Ferritin, LDH, D-Dimer, CRP q 48h monitor fever High risk mortality Will follow Lou Bettencourt MD Infectious Diseases [employer] [facility] M [phone] O [phone] Subjective Date of service: 05/22/19 Principal diagnosis: LOI on CKD Interval history: No fever overnight, intubated FiO2 65% and p 8 Objective - Exam Narrative Exam: Constitutional: Intubated, sedated FiO2 65% p8 Head, Ears, Nose:limited due to lack of PPE Oral: Endotracheal tube Cardiovascular: Limited evaluation due to PPE shortage Respiratory: Limited evaluation due to PPE shortage GI: Limited evaluation due to PPE shortage Musculoskeletal: Limited evaluation due to PPE shortage Skin: right arm AVG with edema Neurological: Sedated - Constitutional Vitals: Vital Signs Temp Pulse Resp BP Pulse Ox 98.6 F 66 25 H 90/40 91 05/22/19 04:00 05/22/19 14:00 05/22/19 14:00 05/22/19 14:00 05/22/19 14:00 Temperature -Last 24 Hours Temperature 98.6 F Temperature 98.6 F Temperature 98.4 F - Labs CBC & Chem 7: 05/22/19 04:48 05/22/19 04:48 Labs: Abnormal lab results 05/21/19 05/21/19 05/21/19 Range/Units 17:41 23:25 23:45 WBC (4.5-11.0) K/mm3 RBC (3.65-5.03) M/mm3 Hgb (10.1-14.3) gm/dl Hct (30.3-42.9) % RDW (13.2-15.2) % D-Dimer (0-234) ng/mlDDU ABG pH 7.281 L (7.350-7.450) pH Units ABG pO2 61.2 L (80.0-90.0) mm Hg ABG O2 Saturation 91.6 L (95.0-99.0) % ABG Base Excess -4.8 L (-2.0-3.0) mmol/L ABG Hemoglobin 6.2 L (12.0-16.0) gm/dl Oxyhemoglobin 88.9 L (95.0-99.0) % Carbon Dioxide (22-30) mmol/L BUN (7-17) mg/dL Creatinine (0.7-1.2) mg/dL Glucose (65-100) mg/dL POC Glucose 427 H 453 H (70-105) Ferritin (13.0-400.0) ng/mL Lactate Dehydrogenase (91-180) units/L C-Reactive Protein (0.00-1.30) mg/dL 05/22/19 05/22/19 05/22/19 Range/Units 04:35 04:48 04:48 WBC (4.5-11.0) K/mm3 RBC (3.65-5.03) M/mm3 Hgb (10.1-14.3) gm/dl Hct (30.3-42.9) % RDW (13.2-15.2) % D-Dimer (0-234) ng/mlDDU ABG pH (7.350-7.450) pH Units ABG pO2 (80.0-90.0) mm Hg ABG O2 Saturation (95.0-99.0) % ABG Base Excess (-2.0-3.0) mmol/L ABG Hemoglobin (12.0-16.0) gm/dl Oxyhemoglobin (95.0-99.0) % Carbon Dioxide 17 L (22-30) mmol/L BUN 176 H (7-17) mg/dL Creatinine 12.0 H (0.7-1.2) mg/dL Glucose 493 H (65-100) mg/dL POC Glucose 470 H (70-105) Ferritin (13.0-400.0) ng/mL Lactate Dehydrogenase 978 H (91-180) units/L C-Reactive Protein 57.20 H (0.00-1.30) mg/dL 05/22/19 05/22/19 05/22/19 Range/Units 04:48 09:33 10:11 WBC 12.0 H (4.5-11.0) K/mm3 RBC 2.47 L (3.65-5.03) M/mm3 Hgb 7.0 L (10.1-14.3) gm/dl Hct 22.0 L (30.3-42.9) % RDW 16.3 H (13.2-15.2) % D-Dimer (0-234) ng/mlDDU ABG pH 7.331 L (7.350-7.450) pH Units ABG pO2 62.5 L (80.0-90.0) mm Hg ABG O2 Saturation 90.2 L (95.0-99.0) % ABG Base Excess -5.0 L (-2.0-3.0) mmol/L ABG Hemoglobin 6.4 L (12.0-16.0) gm/dl Oxyhemoglobin 87.8 L (95.0-99.0) % Carbon Dioxide (22-30) mmol/L BUN (7-17) mg/dL Creatinine (0.7-1.2) mg/dL Glucose (65-100) mg/dL POC Glucose (70-105) Ferritin 2525.0 H (13.0-400.0) ng/mL Lactate Dehydrogenase (91-180) units/L C-Reactive Protein (0.00-1.30) mg/dL 05/22/19 05/22/19 Range/Units 12:49 13:16 WBC (4.5-11.0) K/mm3 RBC (3.65-5.03) M/mm3 Hgb (10.1-14.3) gm/dl Hct (30.3-42.9) % RDW (13.2-15.2) % D-Dimer 3046.75 H (0-234) ng/mlDDU ABG pH (7.350-7.450) pH Units ABG pO2 (80.0-90.0) mm Hg ABG O2 Saturation (95.0-99.0) % ABG Base Excess (-2.0-3.0) mmol/L ABG Hemoglobin (12.0-16.0) gm/dl Oxyhemoglobin (95.0-99.0) % Carbon Dioxide (22-30) mmol/L BUN (7-17) mg/dL Creatinine (0.7-1.2) mg/dL Glucose (65-100) mg/dL POC Glucose > 500 H (70-105) Ferritin (13.0-400.0) ng/mL Lactate Dehydrogenase (91-180) units/L C-Reactive Protein (0.00-1.30) mg/dL
[2019-05-22 14:33] LABS: Hepatitis B Surface Antigen Non-Reactive (Negative); Hepatitis C Virus Antibody Non-Reactive (NonReactive)
[2019-05-22] MEDS ORDERED: IVERMECTIN (NF) 3 MG TAB PO ONE (15:00)
[2019-05-22] MEDS ORDERED: SODIUM CHLORIDE*PRIMING MACHINE ONLY FOR DIALYSIS MC ONE (21:39)
[2019-05-23] MEDS: INSULIN REGULAR, HUMAN 100 UNITS/1 ML SUB-Q SCH ×5 (00:01→23:58)
[2019-05-23] MEDS: INSULIN LISPRO 100 UNIT/ML SUB-Q SCH ×5 (00:01→23:57)
[2019-05-23 05:20] LABS: ABG Base Excess -2.4 mmol/L (-2.0-3.0); ABG HCO3 22.2 mmol/L (20.0-26.0); ABG Methemoglobin 0.5 % (0.0-1.5); ABG Oxygen Saturation 93.8 % (95.0-99.0); ABG PCO2 36.6 mm Hg; ABG PH 7.401 pH Units (7.350-7.450); ABG PO2 54.9 mm Hg (80.0-90.0)
[2019-05-23] MEDS ORDERED: SODIUM CHLORIDE 0.9% 100 ML IV PRN (08:59)
[2019-05-23] MEDS: METOCLOPRAMIDE 10 MG/2 ML INJ IV SCH ×3 (09:33→23:57)
[2019-05-23] MEDS: HEPARIN 5,000 UNIT/1 ML VIAL SUB-Q SCH (09:33)
[2019-05-23] MEDS: SODIUM BICARBONATE 650 MG TAB PO SCH ×3 (09:34→21:00)
[2019-05-23] MEDS: FAMOTIDINE 20 MG TAB PO SCH (09:34)
[2019-05-23] MEDS ORDERED: INSULIN GLARGINE 100 UNITS/ML SUB-Q SCH (10:00)
--- NOTE | 2019-05-23 10:25 | Progress Note ---
Assessment and Plan Assessment and plan: --Covid-19 confirmed Covid19 paperwork completed by ED F/U ferritin, LDH, D-Dimer and CRP --Acute hypoxic respiratory failure; requiring intubation On ventilatory support, nebulizers Supportive care, pulmonary critical following Wean as tolerated per pulm --Bilateral patchy groundglass opacities/pneumonia Isolation precautions, cultures ID following --Acute metabolic encephalopathy; Present on admission, probably secondary to hypoxemia --Infected AV graft for dialysis; IV antibiotics, vascular,ID following --End-stage renal disease on hemodialysis; HD per schedulen nephrology following --Type 2 diabetes mellitus; moderate control Accu-Chek sliding scale coverage ADA diet and insulin as needed HbA1c 7.7 --Moderate malnutrition/hypoalbuminemia Due to underlying disease process, nutrition supplements Nutrition consult as needed --Lactic acidosis; rule out infections Supportive care --DVT prophylaxis; Lovenox --Obesity BMI 31.6; Patient needs weight reduction when medically stable --Full CODE STATUS; Monitor closely and adjust management as needed Very poor prognosis Plan of care reviewed with the patient's nurse 05/18/2019 Covid-19 confirmed Patient currently with AC mode, rate20, tidal volume 450, FiO2 50% and PEEP 6. Continue hydroxychloroquine 400 mg p.o. twPatient is critically ill with poor prognosis. Wean as tolerated per pulmonarice daily x1 day then 200 mg p.o. x 4 twice daily for 5 days. Continue cefepime per ID. Follow-up inflammatory markers of ferritin, LDH, d-dimer and CRP. 05/19/19 Patient currently with AC mode, rate20, tidal volume 450, FiO2 50% and PEEP 6. Patient is critically ill with poor prognosis. Continue Plaquenil 200 mg p.o. x 4 twice daily for 5 days. Continue cefepime per ID. Follow-up inflammatory markers of ferritin, LDH, d-dimer and CRP. Discussed confirmed positive test with daughter 05/20/2019. Continue Plaquenil taper per ID recommendations. Continue mechanical ventilation with AC mode, rate 14, tidal volume 450 and PEEP 6. Follow-up inflammatory markers of ferritin, LDH, d-dimer and CRP. 05/21/2019. Patient remains critically ill on mechanical ventilation AC mode with rate 14, tidal volume 450, FiO2 40% and PEEP of 6. Patient has strep pneumonia in sputum and likely has bacterial pneumonia exacerbated with COVID-19. Ferritin and LDH elevated but d-dimer decreased. Follow-up repeat chest x-ray. Continue antibiotics per IDceftriaxone. Continue Plaquenil/zinc. Continue COVID isolation precautions. Follow-up inflammatory markers. Patient with poor prognosis and high risk mortality. 05/22/2019. Patient remains critically ill on mechanical ventilation AC mode with rate 25, tidal volume 450, FiO2 65% and PEEP of 8. Patient has strep pneumonia in sputum and likely has bacterial pneumonia exacerbated with COVID-19. Ferritin and LDH elevated but d-dimer decreased. Follow-up repeat chest x-ray. Continue antibiotics per IDceftriaxone. Continue Plaquenil/zinc. Continue COVID isolation precautions. Follow-up inflammatory markers. Continue hemodialysis per nephrology and evaluate on a daily basis. Patient with poor prognosis and high risk mortality. 05/23/2019 patient with covid-19 infection. She is critically ill, still intubated on vent. The high probability of a clinically significant, sudden or life threatening deterioration of the [immunologic and respiratory] system(s) required my full and direct attention, intervention and personal management. The aggregate critical care time was [36] minutes. This time is in addition to time spent performing reported procedures but includes the following: [x] Data Review and interpretation [x] Patient assessment and monitoring of vital signs [x] Documentation [x] Medication orders and management History Interval history: Patient with Covid-19 infection, fever Hospitalist Physical - Physical exam Narrative exam: GEN: Not in acute distress, obese HEENT: Normocephalic, atraumatic, Neck: supple, No JVD Lungs: Clear to auscultation bilaterally heart;S1 and S2 reg, no murmurs, rubs or gallop Abd:soft, non tender, non distended, normal bowel sounds, Ext: No edema, no clubbing, no cyanosis, Neuro: Intubated - Constitutional Vitals: Temp Pulse Resp BP Pulse Ox 100.7 F H 82 26 H 128/52 97 05/23/19 04:00 05/23/19 09:10 05/23/19 08:15 05/23/19 09:10 05/23/19 09:10 General appearance: Present: other (Currently on a ventilator and sedated) Results - Labs CBC & Chem 7: 05/22/19 04:48 05/22/19 04:48 Labs: Laboratory Last Values WBC 12.0 K/mm3 (4.5-11.0) H 05/22/19 04:48 RBC 2.47 M/mm3 (3.65-5.03) L 05/22/19 04:48 Hgb 7.0 gm/dl (10.1-14.3) L 05/22/19 04:48 Hct 22.0 % (30.3-42.9) L 05/22/19 04:48 MCV 89 fl (79-97) 05/22/19 04:48 MCH 28 pg (28-32) 05/22/19 04:48 MCHC 32 % (30-34) 05/22/19 04:48 RDW 16.3 % (13.2-15.2) H 05/22/19 04:48 Plt Count 264 K/mm3 (140-440) 05/22/19 04:48 Lymph % (Auto) 6.4 % (13.4-35.0) L 05/17/19 05:43 [place] % (Auto) 4.9 % (0.0-7.3) 05/17/19 05:43 Eos % (Auto) 0.9 % (0.0-4.3) 05/17/19 05:43 Baso % (Auto) 0.3 % (0.0-1.8) 05/17/19 05:43 Lymph # 0.5 K/mm3 (1.2-5.4) L 05/17/19 05:43 [place] # 0.4 K/mm3 (0.0-0.8) 05/17/19 05:43 Eos # 0.1 K/mm3 (0.0-0.4) 05/17/19 05:43 Baso # 0.0 K/mm3 (0.0-0.1) 05/17/19 05:43 Seg Neutrophils % 87.5 % (40.0-70.0) H 05/17/19 05:43 Seg Neutrophils # 7.2 K/mm3 (1.8-7.7) 05/17/19 05:43 D-Dimer 3046.75 ng/mlDDU (0-234) H 05/22/19 13:16 ABG pH 7.401 pH Units (7.350-7.450) 05/23/19 04:12 ABG pCO2 36.6 mm Hg 05/23/19 04:12 ABG pO2 54.9 mm Hg (80.0-90.0) L 05/23/19 04:12 ABG HCO3 22.2 mmol/L (20.0-26.0) 05/23/19 04:12 ABG O2 Saturation 93.8 % (95.0-99.0) L 05/23/19 04:12 ABG O2 Content 7.7 (0.0-44) 05/23/19 04:12 ABG Base Excess -2.4 mmol/L (-2.0-3.0) L 05/23/19 04:12 ABG Hemoglobin 5.9 gm/dl (12.0-16.0) L 05/23/19 04:12 ABG Carboxyhemoglobin 1.8 % (0.0-5.0) 05/23/19 04:12 ABG Methemoglobin 0.5 % (0.0-1.5) 05/23/19 04:12 Oxyhemoglobin 91.5 % (95.0-99.0) L 05/23/19 04:12 FiO2 75 % 05/23/19 04:12 Sodium 143 mmol/L (137-145) 05/22/19 04:48 Potassium 4.8 mmol/L (3.6-5.0) D 05/22/19 04:48 Chloride 102.8 mmol/L (98-107) 05/22/19 04:48 Carbon Dioxide 17 mmol/L (22-30) L 05/22/19 04:48 Anion Gap 28 mmol/L 05/22/19 04:48 BUN 176 mg/dL (7-17) H 05/22/19 04:48 Creatinine 12.0 mg/dL (0.7-1.2) H 05/22/19 04:48 Estimated GFR 4 ml/min 05/22/19 04:48 BUN/Creatinine Ratio 15 % 05/22/19 04:48 Glucose 493 mg/dL (65-100) H 05/22/19 04:48 POC Glucose 279 (70-105) H 05/23/19 05:45 Hemoglobin A1c 7.7 % (4-6) H 05/15/19 Unknown Lactic Acid 1.40 mmol/L (0.7-2.0) 05/15/19 11:41 Calcium 8.7 mg/dL (8.4-10.2) 05/22/19 04:48 Ferritin 2525.0 ng/mL (13.0-400.0) H 05/22/19 10:11 Total Bilirubin 0.30 mg/dL (0.1-1.2) 05/18/19 11:15 AST 37 units/L (5-40) 05/18/19 11:15 ALT < 5 units/L (7-56) L 05/18/19 11:15 Alkaline Phosphatase 56 units/L (35-129) 05/18/19 11:15 Lactate Dehydrogenase 978 units/L (91-180) H 05/22/19 04:48 C-Reactive Protein 57.20 mg/dL (0.00-1.30) H 05/22/19 04:48 NT-Pro-B Natriuret Pep 7240 pg/mL (0-900) H 05/15/19 09:11 Total Protein 6.8 g/dL (6.3-8.2) 05/18/19 11:15 Albumin 3.0 g/dL (3.9-5) L 05/18/19 11:15 Albumin/Globulin Ratio 0.8 % 05/18/19 11:15 Urine Color Straw (Yellow) 05/15/19 12:07 Urine Turbidity Clear (Clear) 05/15/19 12:07 Urine pH 7.0 (5.0-7.0) 05/15/19 12:07 Ur Specific [place] 1.009 (1.003-1.030) 05/15/19 12:07 Urine Protein 100 mg/dl mg/dL (Negative) 05/15/19 12:07 Urine Glucose (UA) >=500 mg/dL (Negative) 05/15/19 12:07 Urine Ketones Neg mg/dL (Negative) 05/15/19 12:07 Urine Blood Sm (Negative) 05/15/19 12:07 Urine Nitrite Neg (Negative) 05/15/19 12:07 Urine Bilirubin Neg (Negative) 05/15/19 12:07 Urine Urobilinogen < 2.0 mg/dL (<2.0) 05/15/19 12:07 Ur Leukocyte Esterase Neg (Negative) 05/15/19 12:07 Urine WBC (Auto) 3.0 /HPF (0.0-6.0) 05/15/19 12:07 Urine RBC (Auto) 18.0 /HPF (0.0-6.0) 05/15/19 12:07 Urine Mucus Few /HPF 05/15/19 12:07 Random Vancomycin 11.9 ug/mL (0-40.0) 05/17/19 14:57 Salicylates < 0.3 mg/dL (2.8-20.0) L 05/15/19 13:10 Acetaminophen < 5.0 ug/mL (10.0-30.0) L 05/15/19 13:10 Hepatitis A IgM Ab Non-reactive (NonReactive) 05/22/19 10:50 Hep Bs Antigen Non-reactive (Negative) 05/22/19 10:50 Hep B Core IgM Ab Non-reactive (NonReactive) 05/22/19 10:50 Hepatitis C Antibody Non-reactive (NonReactive) 05/22/19 10:50 Miscellaneous Test See scanned result 05/16/19 Unknown Castellanos/IV: Voiding Method Indwelling Catheter IV Catheter Type [Right VAS Cath Femoral] IV Catheter Type [Left INT / Saline Lock External Jugular] IV Catheter Type [Right Wrist] INT / Saline Lock IV Catheter Type [Right INT / Saline Lock External Jugular] Active Medications - Current Medications Current Medications: Generic Name Dose Route Start Last Admin Trade Name Freq PRN Reason Stop Dose Admin Acetaminophen 650 mg 05/15/19 23:04 05/21/19 16:17 Tylenol PO 650 mg Q4H PRN Administration Pain MILD(1-3)/Fever >100.5/MELVIN Acetaminophen 650 mg 05/16/19 01:28 05/16/19 01:44 Tylenol [place] 650 mg Q6H PRN Administration TEMP > 100.3 Lipase/Protease/Amylase 1 each 05/16/19 11:[address] 10,500 Unit FEEDTUBE PRN PRN For Clogged Feeding Tube Famotidine 20 mg 05/18/19 10:00 05/23/19 09:34 Pepcid PO 20 mg DAILY LUIS M Administration Heparin Sodium (Porcine) 5,000 unit 05/19/19 12:00 05/23/19 09:33 Heparin SUB-Q 5,000 unit Q12HR LUIS M Administration Hydrocortisone Sodium Succinate 100 mg 05/23/19 09:00 Solu-Cortef IV 05/23/19 22:01 Q8HR [facility] Hydromorphone HCl 0.25 mg 05/15/19 23:04 05/19/19 12:57 Dilaudid IV 0.25 mg Q3H PRN Administration Pain, Moderate (4-6) Hydrophilic Ointment 1 applic 05/15/19 09:48 Vaseline Lip Therapy TP Q2HR PRN Dry Lips Propofol 1,000 mg in 100 mls @ 2.585 mls/hr 05/15/19 11:00 05/17/19 17:51 Diprivan 10 Mg/Ml IV 35 mcg/kg/min TITR LUIS M 18.098 mls/hr Administration Protocol 5 MCG/KG/MIN Ceftriaxone Sodium 2 gm in 100 mls @ 200 mls/hr 05/21/19 11:00 05/22/19 09:05 Rocephin/Ns 2 Gm/100 Ml IV 200 mls/hr Q24HR [facility] Administration Protocol Norepinephrine 4 mg in 250 mls @ 18.75 mls/hr 05/21/19 23:45 05/22/19 00:22 Levophed Drip 4 Mg/Ns 250 Ml IV 0 mcg/min TITR LUIS M 0 mls/hr Titration Protocol 5 MCG/MIN Sodium Chloride 100 mls @ 999 mls/hr 05/22/19 09:06 Nacl 0.9% IV COBY PRN Hypotension Sodium Chloride 100 mls @ 999 mls/hr 05/23/19 08:59 Nacl 0.9% IV COBY PRN Hypotension Insulin Glargine 25 units 05/23/19 10:00 05/23/19 09:33 Lantus SUB-Q 25 units BID LUIS M Administration Insulin Human Lispro 0 unit 05/16/19 00:00 05/23/19 05:45 Humalog SUB-Q 6 unit Q6HR [facility] Administration Protocol Insulin Human Regular 10 units 05/22/19 12:00 05/23/19 05:44 Humulin R SUB-Q 10 units Q6HR [facility] Administration Metoclopramide HCl 5 mg 05/15/19 23:24 Reglan IV Q6H PRN Nausea And Vomiting Metoclopramide HCl 5 mg 05/23/19 09:00 05/23/19 09:33 Reglan IV 05/25/19 06:01 5 mg Q6HR LUIS M Administration Multi-Ingred Cream/Lotion/Oil/Oint 1 applic 05/15/19 09:48 Artificial Tears Ophth Oint OU Q4HR PRN Dry Eye(s) Ondansetron HCl 4 mg 05/15/19 23:04 05/19/19 18:30 Zofran IV 4 mg Q8H PRN Administration Nausea And Vomiting Simple Syrup 15 ml 05/16/19 11:14 Simple Syrup FEEDTUBE PRN PRN Hypoglycemia Simple Syrup 30 ml 05/16/19 11:14 Simple Syrup FEEDTUBE PRN PRN Hypoglycemia Sodium Bicarbonate 325 mg 05/16/19 11:14 Sodium Bicarbonate FEEDTUBE PRN PRN For Clogged Feeding Tube Sodium Bicarbonate 650 mg 05/21/19 15:00 05/23/19 09:34 Sodium Bicarbonate PO 650 mg TID LUIS M Administration Sodium Chloride 10 ml 05/16/19 10:00 05/23/19 09:34 Sodium Chloride Flush Syringe 10 Ml IV 10 ml BID LUIS M Administration Sodium Chloride 10 ml 05/15/19 23:04 Sodium Chloride Flush Syringe 10 Ml IV PRN PRN LINE FLUSH Nutrition/Malnutrition Assess - Dietary Evaluation Nutrition/Malnutrition Findings: Nutrition Notes Start: 05/16/19 08:31 Freq: Status: Active Protocol: Document 05/22/19 09:52 LM (Rec: 05/22/19 09:56 LM [id number]) Nutrition Notes Initial or Follow up Reassessment Current Diagnosis CKD (stage V CKD),Diabetes, Hypertension,Respiratory Failure Other Pertinent Diagnosis AV graft infection, fever, COVID-19 positive Current Diet Nepro 1.8 at 45ml/hr Labs/Tests BG 493 Pertinent Medications Humalog Lantus Levophed Zinc Height 5 ft 5 in Weight 82.8 kg [place] Body Weight (kg) 56.81 BMI 30.4 Weight Status Obese Subjective/Other Information Pt tolerating TF at goal rate. Percent of energy/protein needs met: 100%/76% Burn Absent Trauma Absent Current % PO Negligible Minimum of two criteria No Reduced [employer] Strength Measurably Reduced (severe) #1 Nutrition Diagnosis Inadequate oral intake Diagnosis Progress(for reassessment Continues documentation) Is patient on ventilator? Yes Is Patient Ambulatory and/or Out of Bed No REE-([place]-[facility]-confined to bed) [phone] Calculation Used for Recommendations [place] Additional Notes Protein: 114g (>/=2g/kg using IBW 57kg) Fluid: per MD Nutrition Intervention Change Diet Order: TF Nutrition Support: Nepro 1.8 at 45ml/hr Flush 200 ml q4h Kcal 1,944 Protein (gm) 87 Fluid (mL) 785 Goal #1 TF tolerance Goal #2 Meet at least 75% of energy and protein needs via TF Anticipated Discharge Needs: unable to determine at this time Follow-Up By: 05/29/19 Additional Comments F/U for TF tolerance
[2019-05-23] MEDS: HYDROCORTISONE SOD SUCC 100 MG/2 ML VIAL IV SCH ×3 (11:02→21:00)
[2019-05-23] MEDS ORDERED: TOCILIZUMAB 400 MG in SODIUM CHLORIDE 0.9% 100 ML IV ONE (12:00)
[2019-05-23] MEDS ORDERED: INSULIN GLARGINE 100 UNITS/ML SUB-Q ONE (12:00)
[2019-05-23] MEDS ORDERED: ENOXAPARIN 80 MG/0.8 ML INJ SUB-Q SCH (12:00)
[2019-05-23] MEDS: cefTRIAXone/NS 2 GM/100 ML 2 GM/100 ML BAG IV SCH (13:15)
--- NOTE | 2019-05-23 14:18 | Progress Note ---
Assessment and Plan Acute hypoxemic respiratory failure orally intubated on MVS COVID 19 POSITIVE Sepsis secondary Bilateral pneumonia -+ Strep in tracheal aspirate/COVID pneumonia Oropharyngeal dysphagia Acute metabolic encephalopathy Infected AV graft for dialysis; ESRD on HD Type 2 diabetes mellitus; moderate control Lactic acidosis, present on admission Hypernatremia Increase PEEP to 10, monitor airway pressures Promotility agents for high residuals. Resume trophic feedings Steroids for another 24 hours For HD today once trialysis catheter is placed ABG in the morning Consider Acterma( off label) use- will discuss with ID in view of worsening respiratory status clinically Wean vasopressor support for MAP<65 Conservative fluid management Continue all critical care as outlined below -Continue with MVS, Lung protective strategies, monitor airway pressures -VAP bundle addressed -Continue aspiration precautions, HOB>40 -Continue daily assessment for readiness for SBT- currently on high ventilatory settings, not ready fro weaning -Continue Stress ulcer prophylaxis -Continue VTE prophylaxis -Supportive transfusions as indicated to keep HgB >7g/dL -Continue enteric nutritional support at goal rate. Monitor glycemic control, with target blood glucose 140-180 mg/dL while critically ill. -Avoid hypoglycemia- Poor glycemic control - Continue to wean supplemental oxygen for target O2 sats > 90% -ABG and CXR in am -ContinueCOVID isolationprecautions per [facility] protocol -Continue to avoid nephrotoxins, adjust all medications for GFR and CrCL -Supportive HD per renal service - Continue bronchodilators with pulmonary hygiene - Continue prn analgesia per CPOT score - Continue to maintain of sleep-wake cycle, avoid delirium - PT/OT/ROM exercises - Continue mobility protocol , off loading and skin assessment per protocol for pressure ulcer prevention - continue other care per attending / other consultants CONDITION: CRITICAL PROGNOSIS: GUARDED CODE STATUS: FULL CODE The high probability of a clinically significant, sudden or life-threatening deterioration of the [respiratory, renal, Neurology] system(s) required my full and direct attention, intervention and personal management. The aggregate critical care time was [35] minutes without overlap. Time includes spent on; [x] Data Review and interpretation [x] Patient assessment and monitoring of vital signs [x] Documentation [x] Medication orders and management Subjective Date of service: 05/23/19 Principal diagnosis: LOI on CKD Interval history: Patient is seen today for: Acute hypoxemic respiratory failure orally intubated on MVS;COVID 19 POSITIVE;Bilateral pneumonia;Oropharyngeal dysphagia ;Acute metabolic encephalopathy 05/19/2019 On gong fevers Temperature max of 104.9., off Propofol and remains calm. Orally intubated on MVS. Episodes of vomiting, tube feeding on hold. Hyperglycemia, currently on Plaquenil Day 03/22. On Cefepime and Vancomycin 12 lead EKG today QTc <500 05/22/2019 desaturations requiring FIO2 increase to 65% Currently on AC-VC 14/450/6/65% ET 7.5cm at 22 AATL Required norepinephrine support over night briefly OGT in place, Nepro at goal. Hyperglycemia, sub-optimal glycemic control Castellanos catheter in place Trialysis catheter to be placed- to initiate HD today On going fevers with Tmax 101.5 On Rocephin for Strep in tracheal aspirate, Day 06/19 of Plaquenil Inflammatory markers pending 05/23/2019 Seen and examined at bedside; 24hour events reviewed; nursing and respiratory care staff consulted; no adverse overnight events reported to me; Vitals, labs, medications, chart reviewed. Episodes of tachycardia over night; tube feedings on hold for high residuals. On Rocephin for Strep pneumonia. s/p Ivermectin, s/p Plaquenil. Increasing inflammatory markers( increased Ferritin and LDH, CRP 57.2). HD was held yesterday secondary to hemodynamic instability. On going fevers. Desaturations overnight , FIO2 increased to 75% Currently on AC-VC 25/450/8/75% ABG 7.4/36/54.9/22.[address] PUI?: Yes COVID19: Positive Objective Vital Signs - 12hr 05/23/19 05/23/19 05/23/19 02:30 02:45 03:00 Temperature Pulse Rate 92 H 88 80 Pulse Rate [ From Monitor] Respiratory 26 H 26 H 25 H Rate Blood Pressure 131/50 124/49 123/48 O2 Sat by Pulse 98 96 97 Oximetry O2 Sat by Pulse Oximetry [ Anterior Throughout] 05/23/19 05/23/19 05/23/19 03:15 03:30 03:46 Temperature Pulse Rate 87 95 H 87 Pulse Rate [ From Monitor] Respiratory 26 H 28 H 20 Rate Blood Pressure 130/47 132/51 116/77 O2 Sat by Pulse 95 96 95 Oximetry O2 Sat by Pulse Oximetry [ Anterior Throughout] 04/09/0305/23/19 05/23/19 04:00 04:15 04:30 Temperature 100.7 F H Pulse Rate 88 95 H 79 Pulse Rate [ 88 From Monitor] Respiratory 28 H 32 H 26 H Rate Blood Pressure 135/60 149/65 134/56 O2 Sat by Pulse 95 97 95 Oximetry O2 Sat by Pulse Oximetry [ Anterior Throughout] 05/23/19 05/23/19 05/23/19 04:45 04:53 05:00 Temperature Pulse Rate 87 80 87 Pulse Rate [ From Monitor] Respiratory 27 H 24 Rate Blood Pressure 138/54 138/54 141/57 O2 Sat by Pulse 96 96 96 Oximetry O2 Sat by Pulse Oximetry [ Anterior Throughout] 05/23/19 05/23/19 05/23/19 05:15 05:30 05:45 Temperature Pulse Rate 90 89 81 Pulse Rate [ From Monitor] Respiratory 26 H 26 H 26 H Rate Blood Pressure 141/57 135/54 136/53 O2 Sat by Pulse 96 96 96 Oximetry O2 Sat by Pulse Oximetry [ Anterior Throughout] 05/23/19 05/23/19 05/23/19 06:00 06:15 06:30 Temperature Pulse Rate 90 83 76 Pulse Rate [ From Monitor] Respiratory 26 H 25 H 26 H Rate Blood Pressure 138/56 147/54 125/52 O2 Sat by Pulse 96 96 96 Oximetry O2 Sat by Pulse Oximetry [ Anterior Throughout] 05/23/19 05/23/19 05/23/19 06:46 07:00 07:15 Temperature Pulse Rate 86 80 79 Pulse Rate [ From Monitor] Respiratory 26 H 25 H 26 H Rate Blood Pressure 126/51 129/55 130/55 O2 Sat by Pulse 96 96 96 Oximetry O2 Sat by Pulse Oximetry [ Anterior Throughout] 05/23/19 05/23/19 05/23/19 07:30 07:45 08:00 Temperature 99.0 F Pulse Rate 89 81 80 Pulse Rate [ 97 H From Monitor] Respiratory 26 H 25 H 28 H Rate Blood Pressure 130/55 135/56 130/55 O2 Sat by Pulse 97 97 100 Oximetry O2 Sat by Pulse Oximetry [ Anterior Throughout] 05/23/19 05/23/19 05/23/19 08:15 08:30 08:45 Temperature Pulse Rate 81 84 82 Pulse Rate [ From Monitor] Respiratory 26 H 25 H 25 H Rate Blood Pressure 133/55 135/57 136/54 O2 Sat by Pulse 98 97 98 Oximetry O2 Sat by Pulse Oximetry [ Anterior Throughout] 05/23/19 05/23/19 05/23/19 09:00 09:10 09:15 Temperature Pulse Rate 79 82 84 Pulse Rate [ From Monitor] Respiratory 24 26 H Rate Blood Pressure 128/52 128/52 133/52 O2 Sat by Pulse 98 97 99 Oximetry O2 Sat by Pulse Oximetry [ Anterior Throughout] 05/23/19 05/23/19 05/23/19 09:30 09:45 10:00 Temperature Pulse Rate 90 90 86 Pulse Rate [ From Monitor] Respiratory 26 H 29 H 30 H Rate Blood Pressure 136/57 139/55 150/59 O2 Sat by Pulse 100 100 98 Oximetry O2 Sat by Pulse Oximetry [ Anterior Throughout] 05/23/19 05/23/19 05/23/19 10:15 10:30 10:46 Temperature Pulse Rate 98 H 95 H 99 H Pulse Rate [ From Monitor] Respiratory 33 H 30 H 31 H Rate Blood Pressure 156/70 151/65 144/56 O2 Sat by Pulse 100 100 100 Oximetry O2 Sat by Pulse Oximetry [ Anterior Throughout] 05/23/19 05/23/19 05/23/19 11:00 11:15 11:30 Temperature Pulse Rate 97 H 93 H 98 H Pulse Rate [ From Monitor] Respiratory 27 H 27 H 30 H Rate Blood Pressure 141/59 142/60 142/60 O2 Sat by Pulse 100 100 100 Oximetry O2 Sat by Pulse Oximetry [ Anterior Throughout] 05/23/19 05/23/19 05/23/19 11:46 11:56 12:00 Temperature Pulse Rate 96 H 97 H 96 H Pulse Rate [ 97 H From Monitor] Respiratory 25 H 26 H Rate Blood Pressure 136/59 136/59 136/59 O2 Sat by Pulse 100 100 100 Oximetry O2 Sat by Pulse Oximetry [ Anterior Throughout] 05/23/19 05/23/19 05/23/19 12:16 12:30 12:46 Temperature Pulse Rate 96 H 89 94 H Pulse Rate [ From Monitor] Respiratory 26 H 25 H 26 H Rate Blood Pressure 129/56 138/58 128/53 O2 Sat by Pulse 100 100 100 Oximetry O2 Sat by Pulse Oximetry [ Anterior Throughout] 05/23/19 05/23/19 13:00 13:45 Temperature 99.0 F Pulse Rate 91 H 88 Pulse Rate [ From Monitor] Respiratory 25 H 28 H Rate Blood Pressure 137/56 133/55 O2 Sat by Pulse 100 Oximetry O2 Sat by Pulse 100 Oximetry [ Anterior Throughout] Constitutional: no acute distress, other (sedated) Eyes: non-icteric ENT: oropharynx moist, other (ETT at 22cm at the lip, NGT ) Neck: supple, no lymphadenopathy Effort: normal Ascultation: Bilateral: clear, diminished breath sounds, rhonchi Percussion: Bilateral: not dull Cardiovascular: regular rate and rhythm (tachycardia), other (S1,S2) Gastrointestinal: normoactive bowel sounds, soft, non-tender, non-distended Integumentary: normal Extremities: no cyanosis, no edema Neurologic: pupils equal and round, unable to assess (sedated) Psychiatric: other (encephalopathic) CBC and BMP: 05/26/19 03:43 05/27/19 08:59 ABG, PT/INR, D-dimer: ABG ABG pH 7.401 pH Units (7.350-7.450) 05/23/19 04:12 ABG pCO2 36.6 mm Hg 05/23/19 04:12 ABG pO2 54.9 mm Hg (80.0-90.0) L 05/23/19 04:12 ABG O2 Saturation 93.8 % (95.0-99.0) L 05/23/19 04:12 PT/INR, D-dimer D-Dimer 3046.75 ng/mlDDU (0-234) H 05/22/19 13:16 Abnormal lab findings: Abnormal Labs 05/15/19 05/15/19 05/15/19 08:07 08:31 09:11 WBC 11.9 H RBC 3.41 L Hgb 9.3 L Hct 30.1 L MCH 27 L RDW Lymph % (Auto) Lymph # Seg Neutrophils % Seg Neutrophils # D-Dimer ABG pH ABG pO2 ABG HCO3 ABG O2 Saturation ABG Base Excess ABG Hemoglobin Oxyhemoglobin Sodium 136 L Chloride Carbon Dioxide 15 L D BUN 74 H Creatinine 5.8 H Glucose 267 H POC Glucose 344 H Hemoglobin A1c Lactic Acid Calcium Ferritin ALT < 5 L Lactate Dehydrogenase C-Reactive Protein NT-Pro-B Natriuret Pep Albumin 3.2 L Salicylates Acetaminophen 05/15/19 05/15/19 05/15/19 09:11 09:11 09:30 WBC RBC Hgb Hct MCH RDW Lymph % (Auto) Lymph # Seg Neutrophils % Seg Neutrophils # D-Dimer ABG pH ABG pO2 ABG HCO3 ABG O2 Saturation ABG Base Excess -2.8 L ABG Hemoglobin 8.2 L Oxyhemoglobin 94.6 L Sodium Chloride Carbon Dioxide BUN Creatinine Glucose POC Glucose Hemoglobin A1c Lactic Acid 3.50 H* Calcium Ferritin ALT Lactate Dehydrogenase C-Reactive Protein NT-Pro-B Natriuret Pep 7240 H Albumin Salicylates Acetaminophen 05/15/19 05/15/19 05/15/19 13:10 13:10 Unknown WBC RBC Hgb Hct MCH RDW Lymph % (Auto) Lymph # Seg Neutrophils % Seg Neutrophils # D-Dimer ABG pH ABG pO2 ABG HCO3 ABG O2 Saturation ABG Base Excess ABG Hemoglobin Oxyhemoglobin Sodium Chloride Carbon Dioxide BUN Creatinine Glucose POC Glucose Hemoglobin A1c 7.7 H Lactic Acid Calcium Ferritin ALT Lactate Dehydrogenase C-Reactive Protein NT-Pro-B Natriuret Pep Albumin Salicylates < 0.3 L Acetaminophen < 5.0 L 05/16/19 05/16/19 05/16/19 03:44 03:58 13:08 WBC 12.9 H RBC Hgb Hct MCH RDW Lymph % (Auto) 7.1 L Lymph # 0.9 L Seg Neutrophils % 87.7 H Seg Neutrophils # 11.3 H D-Dimer ABG pH ABG pO2 213.3 H ABG HCO3 ABG O2 Saturation 99.3 H ABG Base Excess ABG Hemoglobin 7.5 L Oxyhemoglobin Sodium Chloride Carbon Dioxide BUN Creatinine Glucose POC Glucose 231 H Hemoglobin A1c Lactic Acid Calcium Ferritin ALT Lactate Dehydrogenase C-Reactive Protein NT-Pro-B Natriuret Pep Albumin Salicylates Acetaminophen 05/16/19 05/16/19 05/17/19 18:28 23:34 05:02 WBC RBC Hgb Hct MCH RDW Lymph % (Auto) Lymph # Seg Neutrophils % Seg Neutrophils # D-Dimer ABG pH ABG pO2 91.9 H ABG HCO3 ABG O2 Saturation ABG Base Excess -3.6 L ABG Hemoglobin 7.2 L Oxyhemoglobin Sodium Chloride Carbon Dioxide BUN Creatinine Glucose POC Glucose 181 H 177 H Hemoglobin A1c Lactic Acid Calcium Ferritin ALT Lactate Dehydrogenase C-Reactive Protein NT-Pro-B Natriuret Pep Albumin Salicylates Acetaminophen 05/17/19 05/17/19 05/17/19 05:43 05:43 15:15 WBC RBC 3.06 L Hgb 8.6 L Hct 26.1 L D MCH RDW Lymph % (Auto) 6.4 L Lymph # 0.5 L Seg Neutrophils % 87.5 H Seg Neutrophils # D-Dimer ABG pH ABG pO2 ABG HCO3 ABG O2 Saturation ABG Base Excess ABG Hemoglobin Oxyhemoglobin Sodium Chloride Carbon Dioxide 17 L BUN 76 H Creatinine 5.4 H Glucose 231 H POC Glucose 302 H Hemoglobin A1c Lactic Acid Calcium Ferritin ALT Lactate Dehydrogenase C-Reactive Protein NT-Pro-B Natriuret Pep Albumin Salicylates Acetaminophen 05/17/19 05/18/19 05/18/19 18:44 00:04 05:35 WBC RBC Hgb Hct MCH RDW Lymph % (Auto) Lymph # Seg Neutrophils % Seg Neutrophils # D-Dimer ABG pH ABG pO2 ABG HCO3 ABG O2 Saturation ABG Base Excess ABG Hemoglobin Oxyhemoglobin Sodium Chloride Carbon Dioxide BUN Creatinine Glucose POC Glucose 258 H 331 H 329 H Hemoglobin A1c Lactic Acid Calcium Ferritin ALT Lactate Dehydrogenase C-Reactive Protein NT-Pro-B Natriuret Pep Albumin Salicylates Acetaminophen 05/18/19 05/18/19 05/18/19 11:15 11:15 11:15 WBC RBC Hgb Hct MCH RDW Lymph % (Auto) Lymph # Seg Neutrophils % Seg Neutrophils # D-Dimer 5072.66 H ABG pH ABG pO2 ABG HCO3 ABG O2 Saturation ABG Base Excess ABG Hemoglobin Oxyhemoglobin Sodium 146 H Chloride Carbon Dioxide 18 L BUN 99 H Creatinine 6.1 H Glucose 346 H POC Glucose Hemoglobin A1c Lactic Acid Calcium Ferritin 975.6 H ALT < 5 L Lactate Dehydrogenase C-Reactive Protein NT-Pro-B Natriuret Pep Albumin 3.0 L Salicylates Acetaminophen 05/18/19 05/18/19 05/18/19 11:15 11:55 18:11 WBC RBC Hgb Hct MCH RDW Lymph % (Auto) Lymph # Seg Neutrophils % Seg Neutrophils # D-Dimer ABG pH ABG pO2 ABG HCO3 ABG O2 Saturation ABG Base Excess ABG Hemoglobin Oxyhemoglobin Sodium Chloride Carbon Dioxide BUN Creatinine Glucose POC Glucose 334 H 397 H Hemoglobin A1c Lactic Acid Calcium Ferritin ALT Lactate Dehydrogenase 483 H C-Reactive Protein 38.00 H NT-Pro-B Natriuret Pep Albumin Salicylates Acetaminophen 05/18/19 05/19/19 05/19/19 Unknown 00:30 05:07 WBC RBC Hgb Hct MCH RDW Lymph % (Auto) Lymph # Seg Neutrophils % Seg Neutrophils # D-Dimer ABG pH ABG pO2 133.0 H 61.1 L ABG HCO3 ABG O2 Saturation 94.4 L ABG Base Excess -2.9 L -2.7 L ABG Hemoglobin 8.3 L 8.0 L Oxyhemoglobin 92.2 L Sodium Chloride Carbon Dioxide BUN Creatinine Glucose POC Glucose 321 H Hemoglobin A1c Lactic Acid Calcium Ferritin ALT Lactate Dehydrogenase C-Reactive Protein NT-Pro-B Natriuret Pep Albumin Salicylates Acetaminophen 05/19/19 05/19/19 05/19/19 05:17 12:23 15:02 WBC RBC Hgb Hct MCH RDW Lymph % (Auto) Lymph # Seg Neutrophils % Seg Neutrophils # D-Dimer ABG pH ABG pO2 ABG HCO3 ABG O2 Saturation ABG Base Excess ABG Hemoglobin Oxyhemoglobin Sodium 147 H Chloride 108.2 H Carbon Dioxide 16 L BUN 119 H Creatinine 8.5 H Glucose 315 H POC Glucose 235 H 298 H Hemoglobin A1c Lactic Acid Calcium 8.3 L Ferritin ALT Lactate Dehydrogenase C-Reactive Protein NT-Pro-B Natriuret Pep Albumin Salicylates Acetaminophen 05/19/19 05/20/19 05/20/19 17:42 00:11 04:17 WBC RBC Hgb Hct MCH RDW Lymph % (Auto) Lymph # Seg Neutrophils % Seg Neutrophils # D-Dimer ABG pH 7.322 L ABG pO2 58.5 L ABG HCO3 18.9 L ABG O2 Saturation 91.0 L ABG Base Excess -6.5 L ABG Hemoglobin 7.0 L Oxyhemoglobin 88.2 L Sodium Chloride Carbon Dioxide BUN Creatinine Glucose POC Glucose 310 H 277 H Hemoglobin A1c Lactic Acid Calcium Ferritin ALT Lactate Dehydrogenase C-Reactive Protein NT-Pro-B Natriuret Pep Albumin Salicylates Acetaminophen 05/20/19 05/20/19 05/20/19 05:29 09:06 09:06 WBC RBC Hgb Hct MCH RDW Lymph % (Auto) Lymph # Seg Neutrophils % Seg Neutrophils # D-Dimer 3193.32 H ABG pH ABG pO2 ABG HCO3 ABG O2 Saturation ABG Base Excess ABG Hemoglobin Oxyhemoglobin Sodium Chloride Carbon Dioxide BUN Creatinine Glucose POC Glucose 332 H Hemoglobin A1c Lactic Acid Calcium Ferritin 1802.0 H ALT Lactate Dehydrogenase C-Reactive Protein NT-Pro-B Natriuret Pep Albumin Salicylates Acetaminophen 05/20/19 05/20/19 05/20/19 09:06 12:31 18:18 WBC RBC Hgb Hct MCH RDW Lymph % (Auto) Lymph # Seg Neutrophils % Seg Neutrophils # D-Dimer ABG pH ABG pO2 ABG HCO3 ABG O2 Saturation ABG Base Excess ABG Hemoglobin Oxyhemoglobin Sodium Chloride Carbon Dioxide BUN Creatinine Glucose POC Glucose 284 H 355 H Hemoglobin A1c Lactic Acid Calcium Ferritin ALT Lactate Dehydrogenase 646 H C-Reactive Protein 56.30 H NT-Pro-B Natriuret Pep Albumin Salicylates Acetaminophen 05/20/19 05/21/19 05/21/19 23:43 05:04 05:05 WBC RBC Hgb Hct MCH RDW Lymph % (Auto) Lymph # Seg Neutrophils % Seg Neutrophils # D-Dimer ABG pH ABG pO2 54.1 L ABG HCO3 ABG O2 Saturation 88.4 L ABG Base Excess -4.0 L ABG Hemoglobin 6.9 L Oxyhemoglobin 85.5 L Sodium Chloride Carbon Dioxide BUN Creatinine Glucose POC Glucose 394 H 394 H Hemoglobin A1c Lactic Acid Calcium Ferritin ALT Lactate Dehydrogenase C-Reactive Protein NT-Pro-B Natriuret Pep Albumin Salicylates Acetaminophen 05/21/19 05/21/19 05/21/19 12:14 17:41 23:25 WBC RBC Hgb Hct MCH RDW Lymph % (Auto) Lymph # Seg Neutrophils % Seg Neutrophils # D-Dimer ABG pH 7.281 L ABG pO2 61.2 L ABG HCO3 ABG O2 Saturation 91.6 L ABG Base Excess -4.8 L ABG Hemoglobin 6.2 L Oxyhemoglobin 88.9 L Sodium Chloride Carbon Dioxide BUN Creatinine Glucose POC Glucose 457 H 427 H Hemoglobin A1c Lactic Acid Calcium Ferritin ALT Lactate Dehydrogenase C-Reactive Protein NT-Pro-B Natriuret Pep Albumin Salicylates Acetaminophen 05/21/19 05/22/19 05/22/19 23:45 04:35 04:48 WBC RBC Hgb Hct MCH RDW Lymph % (Auto) Lymph # Seg Neutrophils % Seg Neutrophils # D-Dimer ABG pH ABG pO2 ABG HCO3 ABG O2 Saturation ABG Base Excess ABG Hemoglobin Oxyhemoglobin Sodium Chloride Carbon Dioxide BUN Creatinine Glucose POC Glucose 453 H 470 H Hemoglobin A1c Lactic Acid Calcium Ferritin ALT Lactate Dehydrogenase 978 H C-Reactive Protein 57.20 H NT-Pro-B Natriuret Pep Albumin Salicylates Acetaminophen 05/22/19 05/22/19 05/22/19 04:48 04:48 09:33 WBC 12.0 H RBC 2.47 L Hgb 7.0 L Hct 22.0 L MCH RDW 16.3 H Lymph % (Auto) Lymph # Seg Neutrophils % Seg Neutrophils # D-Dimer ABG pH 7.331 L ABG pO2 62.5 L ABG HCO3 ABG O2 Saturation 90.2 L ABG Base Excess -5.0 L ABG Hemoglobin 6.4 L Oxyhemoglobin 87.8 L Sodium Chloride Carbon Dioxide 17 L BUN 176 H Creatinine 12.0 H Glucose 493 H POC Glucose Hemoglobin A1c Lactic Acid Calcium Ferritin ALT Lactate Dehydrogenase C-Reactive Protein NT-Pro-B Natriuret Pep Albumin Salicylates Acetaminophen 05/22/19 05/22/19 05/22/19 10:11 12:49 13:16 WBC RBC Hgb Hct MCH RDW Lymph % (Auto) Lymph # Seg Neutrophils % Seg Neutrophils # D-Dimer 3046.75 H ABG pH ABG pO2 ABG HCO3 ABG O2 Saturation ABG Base Excess ABG Hemoglobin Oxyhemoglobin Sodium Chloride Carbon Dioxide BUN Creatinine Glucose POC Glucose > 500 H Hemoglobin A1c Lactic Acid Calcium Ferritin 2525.0 H ALT Lactate Dehydrogenase C-Reactive Protein NT-Pro-B Natriuret Pep Albumin Salicylates Acetaminophen 05/22/19 05/22/19 05/23/19 17:36 23:51 04:12 WBC RBC Hgb Hct MCH RDW Lymph % (Auto) Lymph # Seg Neutrophils % Seg Neutrophils # D-Dimer ABG pH ABG pO2 54.9 L ABG HCO3 ABG O2 Saturation 93.8 L ABG Base Excess -2.4 L ABG Hemoglobin 5.9 L Oxyhemoglobin 91.5 L Sodium Chloride Carbon Dioxide BUN Creatinine Glucose POC Glucose > 500 H 302 H Hemoglobin A1c Lactic Acid Calcium Ferritin ALT Lactate Dehydrogenase C-Reactive Protein NT-Pro-B Natriuret Pep Albumin Salicylates Acetaminophen 05/23/19 05/23/19 05:45 13:38 WBC RBC Hgb Hct MCH RDW Lymph % (Auto) Lymph # Seg Neutrophils % Seg Neutrophils # D-Dimer ABG pH ABG pO2 ABG HCO3 ABG O2 Saturation ABG Base Excess ABG Hemoglobin Oxyhemoglobin Sodium Chloride Carbon Dioxide BUN Creatinine Glucose POC Glucose 279 H 269 H Hemoglobin A1c Lactic Acid Calcium Ferritin ALT Lactate Dehydrogenase C-Reactive Protein NT-Pro-B Natriuret Pep Albumin Salicylates Acetaminophen Chest x-ray: image reviewed (Peristent alveolar infiltrates) Allied health notes reviewed: RT
--- NOTE | 2019-05-23 15:33 | Progress Note ---
Assessment and Plan Cultures: Blood culture 05/15/2019 no growth to date Sputum culture 05/15/2019 Strep pneumoniae A/P: 63 y/o female with history of ESRD s/p AV graft placement 3 days before admission, admitted on 05/15/2019 for fever and drainage from the left upper extremity graft site as well as cough with whezzing and fever 102: #Severe sepsis: remains low grade fever; likely due to COVID pneumonia #Severe COVID pneumonia: COVID test positive. Now with Strep pneumoniae in s putum likely bacterial pneumonia on top of COVID. Markers up. CT chest shows b ilateral diffuse ground glass opacities. 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 on 05/22/2019 2nd dose of ivermetin today start tocilizumab IV x 1 today On steroid trial consider therapeutic heparin dose -Ddimer >3,000 Continue ceftriaxone 2 gm IVq day for Strep pneumoniae pneumonia Day 3 of 7 S/p hydroxychloroquine total 5 days Day 5 of 5 and zinc ContinueCOVID isolationprecautions per [facility] protocol Obtain Ferritin, LDH, D-Dimer, CRP q 48h monitor fever Address code status with family - high risk mortality Discussed with Dr Romeo and Pharm Will follow Lou Bettencourt MD Infectious Diseases [employer] [facility] M [phone] O [phone] Subjective Date of service: 05/23/19 Principal diagnosis: LOI on CKD Interval history: Low grade fever overnight, intubated FiO2 75% and p 8 Objective - Exam Narrative Exam: Constitutional: Intubated, sedated FiO2 75% p8 Head, Ears, Nose:limited due to lack of PPE Oral: Endotracheal tube Cardiovascular: Limited evaluation due to PPE shortage Respiratory: Limited evaluation due to PPE shortage GI: Limited evaluation due to PPE shortage Musculoskeletal: Limited evaluation due to PPE shortage Skin: right arm AVG with edema Neurological: Sedated - Constitutional Vitals: Vital Signs Temp Pulse Resp BP Pulse Ox 99.0 F 91 H 27 H 118/57 100 05/23/19 13:45 05/23/19 15:15 05/23/19 15:00 05/23/19 15:15 05/23/19 15:00 Temperature -Last 24 Hours Temperature 99.0 F Temperature 99.3 F Temperature 99.0 F Temperature 100.7 F Temperature 98.9 F Temperature 98.9 F Temperature 99.2 F Temperature 99.2 F Temperature 98.6 F - Labs CBC & Chem 7: 05/22/19 04:48 05/22/19 04:48 Labs: Abnormal lab results 05/22/19 05/22/19 05/23/19 Range/Units 17:36 23:51 04:12 ABG pO2 54.9 L (80.0-90.0) mm Hg ABG O2 Saturation 93.8 L (95.0-99.0) % ABG Base Excess -2.4 L (-2.0-3.0) mmol/L ABG Hemoglobin 5.9 L (12.0-16.0) gm/dl Oxyhemoglobin 91.5 L (95.0-99.0) % POC Glucose > 500 H 302 H (70-105) 05/23/19 05/23/19 Range/Units 05:45 13:38 ABG pO2 (80.0-90.0) mm Hg ABG O2 Saturation (95.0-99.0) % ABG Base Excess (-2.0-3.0) mmol/L ABG Hemoglobin (12.0-16.0) gm/dl Oxyhemoglobin (95.0-99.0) % POC Glucose 279 H 269 H (70-105)
--- NOTE | 2019-05-23 16:41 | Progress Note ---
Assessment and Plan - Patient Problems (1) CKD (chronic kidney disease) stage 5, GFR less than 15 ml/min Current Visit: No Status: Acute Plan to address problem: With worsening renal parameters, we initiated HD yesterday. Discuss with vascular surgery, and we had vascath placed for initiation as her new AVG has not matured for use at this time. Placed HD orders for 3 consecutive days. She was unable to tolerated HD yeterday before she became hypotensive, likely as a consequence of worsening sepsis in the setting of her severe COVID pneumonia. Will attempt to dialyze her again today. (2) Acute encephalopathy Current Visit: Yes Status: Acute Plan to address problem: With worsening renal clearance, concerned that uremic can also be contributing to her metal status along with her severe sepsis in the setting of COVID-19 pneumonia [place] dialyze today. (3) Acute respiratory failure Current Visit: Yes Status: Acute Qualifiers: Respiratory failure complication: hypoxia Qualified Code(s): J96.01 - Acute respiratory failure with hypoxia Plan to address problem: Management per primary attending/ICU team. (4) Pneumonia due to COVID-19 virus Current Visit: Yes Status: Acute Plan to address problem: Management per ID recommendations. (5) Hypertensive chronic kidney disease with stage 5 chronic kidney disease or end stage renal disease Current Visit: Yes Status: Chronic Plan to address problem: She is now more hypotensive. Currently off pressors. Will monitor closely (6) Type 2 diabetes mellitus with diabetic chronic kidney disease Current Visit: Yes Status: Chronic Plan to address problem: DM management per primary attending. Subjective Date of service: 05/23/19 Principal diagnosis: LOI on CKD Interval history: Patient initiated on HD yesterday, per dialysis staff was only able to do one hour of treatment prior to decrease in her blood pressures and significant tachycardia. Will plan for another session today. Objective - Vital Signs Vital signs: Vital Signs - 12hr 05/23/19 05/23/19 05/23/19 04:45 04:53 05:00 Temperature Pulse Rate 87 80 87 Pulse Rate [ From Monitor] Respiratory 27 H 24 Rate Blood Pressure 138/54 138/54 141/57 O2 Sat by Pulse 96 96 96 Oximetry O2 Sat by Pulse Oximetry [ Anterior Throughout] 05/23/19 05/23/19 05/23/19 05:15 05:30 05:45 Temperature Pulse Rate 90 89 81 Pulse Rate [ From Monitor] Respiratory 26 H 26 H 26 H Rate Blood Pressure 141/57 135/54 136/53 O2 Sat by Pulse 96 96 96 Oximetry O2 Sat by Pulse Oximetry [ Anterior Throughout] 05/23/19 05/23/19 05/23/19 06:00 06:15 06:30 Temperature Pulse Rate 90 83 76 Pulse Rate [ From Monitor] Respiratory 26 H 25 H 26 H Rate Blood Pressure 138/56 147/54 125/52 O2 Sat by Pulse 96 96 96 Oximetry O2 Sat by Pulse Oximetry [ Anterior Throughout] 05/23/19 05/23/19 05/23/19 06:46 07:00 07:15 Temperature Pulse Rate 86 80 79 Pulse Rate [ From Monitor] Respiratory 26 H 25 H 26 H Rate Blood Pressure 126/51 129/55 130/55 O2 Sat by Pulse 96 96 96 Oximetry O2 Sat by Pulse Oximetry [ Anterior Throughout] 05/23/19 05/23/19 05/23/19 07:30 07:45 08:00 Temperature 99.0 F Pulse Rate 89 81 80 Pulse Rate [ 97 H From Monitor] Respiratory 26 H 25 H 28 H Rate Blood Pressure 130/55 135/56 130/55 O2 Sat by Pulse 97 97 100 Oximetry O2 Sat by Pulse Oximetry [ Anterior Throughout] 05/23/19 05/23/19 05/23/19 08:15 08:30 08:45 Temperature Pulse Rate 81 84 82 Pulse Rate [ From Monitor] Respiratory 26 H 25 H 25 H Rate Blood Pressure 133/55 135/57 136/54 O2 Sat by Pulse 98 97 98 Oximetry O2 Sat by Pulse Oximetry [ Anterior Throughout] 05/23/19 05/23/19 05/23/19 09:00 09:10 09:15 Temperature Pulse Rate 79 82 84 Pulse Rate [ From Monitor] Respiratory 24 26 H Rate Blood Pressure 128/52 128/52 133/52 O2 Sat by Pulse 98 97 99 Oximetry O2 Sat by Pulse Oximetry [ Anterior Throughout] 05/23/19 05/23/19 05/23/19 09:30 09:45 10:00 Temperature Pulse Rate 90 90 86 Pulse Rate [ From Monitor] Respiratory 26 H 29 H 30 H Rate Blood Pressure 136/57 139/55 150/59 O2 Sat by Pulse 100 100 98 Oximetry O2 Sat by Pulse Oximetry [ Anterior Throughout] 05/23/19 05/23/19 05/23/19 10:15 10:30 10:46 Temperature Pulse Rate 98 H 95 H 99 H Pulse Rate [ From Monitor] Respiratory 33 H 30 H 31 H Rate Blood Pressure 156/70 151/65 144/56 O2 Sat by Pulse 100 100 100 Oximetry O2 Sat by Pulse Oximetry [ Anterior Throughout] 05/23/19 05/23/19 05/23/19 11:00 11:15 11:30 Temperature Pulse Rate 97 H 93 H 98 H Pulse Rate [ From Monitor] Respiratory 27 H 27 H 30 H Rate Blood Pressure 141/59 142/60 142/60 O2 Sat by Pulse 100 100 100 Oximetry O2 Sat by Pulse Oximetry [ Anterior Throughout] 05/23/19 05/23/19 05/23/19 11:46 11:56 12:00 Temperature 99.3 F Pulse Rate 96 H 97 H 96 H Pulse Rate [ 97 H From Monitor] Respiratory 25 H 26 H Rate Blood Pressure 136/59 136/59 136/59 O2 Sat by Pulse 100 100 100 Oximetry O2 Sat by Pulse Oximetry [ Anterior Throughout] 05/23/19 05/23/19 05/23/19 12:16 12:30 12:46 Temperature Pulse Rate 96 H 89 94 H Pulse Rate [ From Monitor] Respiratory 26 H 25 H 26 H Rate Blood Pressure 129/56 138/58 128/53 O2 Sat by Pulse 100 100 100 Oximetry O2 Sat by Pulse Oximetry [ Anterior Throughout] 05/23/19 05/23/19 05/23/19 13:00 13:15 13:30 Temperature Pulse Rate 91 H 88 90 Pulse Rate [ From Monitor] Respiratory 25 H 25 H 25 H Rate Blood Pressure 137/56 135/56 126/50 O2 Sat by Pulse 100 100 100 Oximetry O2 Sat by Pulse Oximetry [ Anterior Throughout] 05/23/19 05/23/19 05/23/19 13:45 14:00 14:15 Temperature 99.0 F Pulse Rate 86 91 H 90 Pulse Rate [ From Monitor] Respiratory 25 H 25 H Rate Blood Pressure 127/53 133/55 126/49 O2 Sat by Pulse 100 100 Oximetry O2 Sat by Pulse 100 Oximetry [ Anterior Throughout] 05/23/19 05/23/19 05/23/19 14:16 14:30 14:45 Temperature Pulse Rate 93 H 88 87 Pulse Rate [ From Monitor] Respiratory 24 25 H Rate Blood Pressure 126/49 126/49 129/56 O2 Sat by Pulse 100 99 Oximetry O2 Sat by Pulse Oximetry [ Anterior Throughout] 05/23/19 05/23/19 05/23/19 14:46 15:00 15:01 Temperature Pulse Rate 91 H 89 89 Pulse Rate [ From Monitor] Respiratory 25 H 27 H Rate Blood Pressure 129/56 122/50 122/50 O2 Sat by Pulse 100 100 Oximetry O2 Sat by Pulse Oximetry [ Anterior Throughout] 05/23/19 05/23/19 05/23/19 15:15 15:30 15:45 Temperature Pulse Rate 98 H 93 H 85 Pulse Rate [ From Monitor] Respiratory 23 25 H 26 H Rate Blood Pressure 118/57 124/61 127/61 O2 Sat by Pulse 100 98 99 Oximetry O2 Sat by Pulse Oximetry [ Anterior Throughout] 05/23/19 05/23/19 16:00 16:11 Temperature 99.0 F Pulse Rate 87 83 Pulse Rate [ 85 From Monitor] Respiratory 21 28 H Rate Blood Pressure 107/63 107/63 O2 Sat by Pulse 100 Oximetry O2 Sat by Pulse Oximetry [ Anterior Throughout] - General Appearance General appearance: chronically ill, intubated EENT: ATNC Neck: no JVD Respiratory: Present: Decreased Breath Sounds Cardiology: regular Integumentary: no rash Musculoskeletal: deferred - Lab 05/22/19 04:48 05/22/19 04:48 Most recent lab results ABG pH 7.401 pH Units (7.350-7.450) 05/23/19 04:12 ABG pCO2 36.6 mm Hg 05/23/19 04:12 ABG pO2 54.9 mm Hg (80.0-90.0) L 05/23/19 04:12 ABG HCO3 22.2 mmol/L (20.0-26.0) 05/23/19 04:12 ABG O2 Saturation 93.8 % (95.0-99.0) L 05/23/19 04:12 Calcium 8.7 mg/dL (8.4-10.2) 05/22/19 04:48 Medications & Allergies - Medications Allergies/Adverse Reactions: Allergies No Known Allergies Allergy (Unverified 05/10/19 15:33) Home Medications: Home Medications Medication Instructions Recorded Confirmed Last Taken Type Aspirin [Adult Aspirin] 81 mg PO DAILY 05/10/19 05/20/19 05/11/19 History Cyanocobalamin (Vitamin B-12) 2,500 mcg PO DAILY 05/10/19 05/20/19 05/11/19 History [Vitamin B12] Ferrous Sulfate [Feosol 325 MG tab] 325 mg PO DAILY 05/10/19 05/20/19 05/11/19 History Gabapentin 100 mg PO TID 05/10/19 05/20/19 05/11/19 History Insulin Aspart (Nf) [NovoLOG 100 10 unit SQ TIDAC 05/10/19 05/20/19 05/11/19 History UNITS/ML VIAL] Insulin Glargine [Lantus VIAL] 36 unit SQ QAM 05/10/19 05/20/19 05/11/19 History Tizanidine HCl [Tizanidine 2mg tab] 2 mg PO DAILY 05/10/19 05/20/19 05/11/19 History Torsemide [Demadex] 20 mg PO BID 05/10/19 05/20/19 05/11/19 History amLODIPine 10 mg PO BID 05/10/19 05/20/19 05/12/19 04:30 History calcitrioL [Rocaltrol] 0.5 mcg PO DAILY 05/10/19 05/20/19 05/11/19 History carvediloL [Coreg] 12.5 mg PO BID 05/10/19 05/20/19 05/12/19 04:30 History oxyCODONE /ACETAMINOPHEN [Percocet 1 tab PO Q6HR PRN #24 tablet 05/12/19 05/20/19 Unknown Rx 5/325 mg] Active Medications: Generic Name Dose Route Start Last Admin Trade Name Freq PRN Reason Stop Dose Admin Acetaminophen 650 mg 05/15/19 23:04 05/21/19 16:17 Tylenol PO 650 mg Q4H PRN Administration Pain MILD(1-3)/Fever >100.5/MELVIN Acetaminophen 650 mg 05/16/19 01:28 05/16/19 01:44 Tylenol ME 650 mg Q6H PRN Administration TEMP > 100.3 Lipase/Protease/Amylase 1 each 05/16/19 11:14 Pancreamanda Gillespie 10,500 Unit FEEDTUBE PRN PRN For Clogged Feeding Tube Enoxaparin Sodium 80 mg 05/23/19 12:00 05/23/19 13:16 Enoxaparin SUB-Q 80 mg Q24HR LUIS M Administration Famotidine 20 mg 05/18/19 10:00 05/23/19 09:34 Pepcid PO 20 mg DAILY LUIS M Administration Hydrocortisone Sodium Succinate 100 mg 05/23/19 09:00 05/23/19 13:17 Solu-Cortef IV 05/23/19 22:01 100 mg Q8HR LUIS M Administration Hydromorphone HCl 0.25 mg 05/15/19 23:04 05/19/19 12:57 Dilaudid IV 0.25 mg Q3H PRN Administration Pain, Moderate (4-6) Hydrophilic Ointment 1 applic 05/15/19 09:48 Vaseline Lip Therapy TP Q2HR PRN Dry Lips Propofol 1,000 mg in 100 mls @ 2.585 mls/hr 05/15/19 11:00 05/17/19 17:51 Diprivan 10 Mg/Ml IV 35 mcg/kg/min TITR LUIS M 18.098 mls/hr Administration Protocol 5 MCG/KG/MIN Ceftriaxone Sodium 2 gm in 100 mls @ 200 mls/hr 05/21/19 11:00 05/23/19 13:15 Rocephin/Ns 2 Gm/100 Ml IV 200 mls/hr Q24HR LUIS M Administration Protocol Norepinephrine 4 mg in 250 mls @ 18.75 mls/hr 05/21/19 23:45 05/22/19 00:22 Levophed Drip 4 Mg/Ns 250 Ml IV 0 mcg/min TITR LUIS M 0 mls/hr Titration Protocol 5 MCG/MIN Sodium Chloride 100 mls @ 999 mls/hr 05/22/19 09:06 Nacl 0.9% IV COBY PRN Hypotension Sodium Chloride 100 mls @ 999 mls/hr 05/23/19 08:59 Nacl 0.9% IV COBY PRN Hypotension Insulin Glargine 30 units 05/23/19 22:00 Lantus SUB-Q BID [facility] Insulin Human Lispro 0 unit 05/16/19 00:00 05/23/19 14:36 Humalog SUB-Q 6 unit Q6HR [facility] Administration Protocol Insulin Human Regular 10 units 05/22/19 12:00 05/23/19 14:36 Humulin R SUB-Q 10 units Q6HR [facility] Administration Metoclopramide HCl 5 mg 05/15/19 23:24 Reglan IV Q6H PRN Nausea And Vomiting Metoclopramide HCl 5 mg 05/23/19 09:00 05/23/19 09:33 Reglan IV 05/25/19 06:01 5 mg Q6HR LUIS M Administration Multi-Ingred Cream/Lotion/Oil/Oint 1 applic 05/15/19 09:48 Artificial Tears Ophth Oint OU Q4HR PRN Dry Eye(s) Ondansetron HCl 4 mg 05/15/19 23:04 05/19/19 18:30 Zofran IV 4 mg Q8H PRN Administration Nausea And Vomiting Simple Syrup 15 ml 05/16/19 11:14 Simple Syrup FEEDTUBE PRN PRN Hypoglycemia Simple Syrup 30 ml 05/16/19 11:14 Simple Syrup FEEDTUBE PRN PRN Hypoglycemia Sodium Bicarbonate 325 mg 05/16/19 11:14 Sodium Bicarbonate FEEDTUBE PRN PRN For Clogged Feeding Tube Sodium Bicarbonate 650 mg 05/21/19 15:00 05/23/19 13:17 Sodium Bicarbonate PO 650 mg TID LUIS M Administration Sodium Chloride 10 ml 05/16/19 10:00 05/23/19 09:34 Sodium Chloride Flush Syringe 10 Ml IV 10 ml BID LUIS M Administration Sodium Chloride 10 ml 05/15/19 23:04 Sodium Chloride Flush Syringe 10 Ml IV PRN PRN LINE FLUSH
[2019-05-23] MEDS: INSULIN GLARGINE 100 UNITS/ML SUB-Q SCH (21:00)
[2019-05-24 04:36] LABS: ABG Base Excess 1.4 mmol/L (-2.0-3.0); ABG HCO3 25.2 mmol/L (20.0-26.0); ABG Methemoglobin 0.5 % (0.0-1.5); ABG Oxygen Saturation 99.1 % (95.0-99.0); ABG PCO2 35.3 mm Hg; ABG PH 7.471 pH Units (7.350-7.450); ABG PO2 163.2 mm Hg (80.0-90.0)
[2019-05-24] MEDS: INSULIN REGULAR, HUMAN 100 UNITS/1 ML SUB-Q SCH ×3 (05:20→19:07)
[2019-05-24] MEDS: INSULIN LISPRO 100 UNIT/ML SUB-Q SCH ×3 (05:21→19:06)
[2019-05-24] MEDS: METOCLOPRAMIDE 10 MG/2 ML INJ IV SCH ×4 (05:21→23:37)
[2019-05-24 07:16] LABS: Mean Corpuscular HGB Conc 33 % (30-34); Mean Corpuscular Volume 84 fl (79-97); Platelet Count 214 K/mm3 (140-440); Red Blood Count 2.16 M/mm3 (3.65-5.03); Red Cell Distribution Width 15.3 % (13.2-15.2)
[2019-05-24 07:35] LABS: Calcium 8.7 mg/dL (8.4-10.2)
[2019-05-24 07:43] LABS: Hemoglobin 5.9 gm/dl (10.1-14.3)
[2019-05-24 07:44] LABS: Hematocrit 18.1 % (30.3-42.9)
[2019-05-24 07:53] LABS: C-Reactive Protein 44.4 mg/dL (0.00-1.30)
[2019-05-24] MEDS ORDERED: SODIUM CHLORIDE 0.9% 500 ML 500 ML IV ONE (07:57)
--- NOTE | 2019-05-24 09:33 | Progress Note ---
Assessment and Plan Assessment and plan: --Covid-19 confirmed Covid19 paperwork completed by ED F/U ferritin, LDH, D-Dimer and CRP --Acute hypoxic respiratory failure; requiring intubation On ventilatory support, nebulizers Supportive care, pulmonary critical following Wean as tolerated per pulm --Bilateral patchy groundglass opacities/pneumonia Isolation precautions, cultures ID following --Acute metabolic encephalopathy; Present on admission, probably secondary to hypoxemia --Infected AV graft for dialysis; IV antibiotics, vascular,ID following --End-stage renal disease on hemodialysis; HD per schedulen nephrology following --Type 2 diabetes mellitus; moderate control Accu-Chek sliding scale coverage ADA diet and insulin as needed HbA1c 7.7 --Moderate malnutrition/hypoalbuminemia Due to underlying disease process, nutrition supplements Nutrition consult as needed --Lactic acidosis; rule out infections Supportive care --DVT prophylaxis; Lovenox --Obesity BMI 31.6; Patient needs weight reduction when medically stable Anemia Hgb 5.9. Transfuse 2 units PRBC and repeat obtain stool occult blood --Full CODE STATUS; Monitor closely and adjust management as needed Very poor prognosis Plan of care reviewed with the patient's nurse 05/18/2019 Covid-19 confirmed Patient currently with AC mode, rate20, tidal volume 450, FiO2 50% and PEEP 6. Continue hydroxychloroquine 400 mg p.o. twPatient is critically ill with poor prognosis. Wean as tolerated per pulmonarice daily x1 day then 200 mg p.o. x 4 twice daily for 5 days. Continue cefepime per ID. Follow-up inflammatory markers of ferritin, LDH, d-dimer and CRP. 05/19/19 Patient currently with AC mode, rate20, tidal volume 450, FiO2 50% and PEEP 6. Patient is critically ill with poor prognosis. Continue Plaquenil 200 mg p.o. x 4 twice daily for 5 days. Continue cefepime per ID. Follow-up inflammatory markers of ferritin, LDH, d-dimer and CRP. Discussed confirmed positive test with daughter 05/20/2019. Continue Plaquenil taper per ID recommendations. Continue mechanical ventilation with AC mode, rate 14, tidal volume 450 and PEEP 6. Follow-up inflammatory markers of ferritin, LDH, d-dimer and CRP. 05/21/2019. Patient remains critically ill on mechanical ventilation AC mode with rate 14, tidal volume 450, FiO2 40% and PEEP of 6. Patient has strep pneumonia in sputum and likely has bacterial pneumonia exacerbated with COVID-19. Ferritin and LDH elevated but d-dimer decreased. Follow-up repeat chest x-ray. Continue antibiotics per IDceftriaxone. Continue Plaquenil/zinc. Continue CO VID isolation precautions. Follow-up inflammatory markers. Patient with poor prognosis and high risk mortality. 05/22/2019. Patient remains critically ill on mechanical ventilation AC mode with rate 25, tidal volume 450, FiO2 65% and PEEP of 8. Patient has strep pneumonia in sputum and likely has bacterial pneumonia exacerbated with COVID-19. Ferritin and LDH elevated but d-dimer decreased. Follow-up repeat chest x-ray. Continue antibiotics per IDceftriaxone. Continue Plaquenil/zinc. Continue COVID isolation precautions. Follow-up inflammatory markers. Continue hemodialysis per nephrology and evaluate on a daily basis. Patient with poor prognosis and high risk mortality. 05/23/2019 patient with covid-19 infection. She is critically ill, still intubated on vent. 05/24/2019 patient hgb 5.9. Transfuse 2 Units PRBC. I discussed this with Nurse. She is still critically ill, intubated The high probability of a clinically significant, sudden or life threatening deterioration of the [immunologic and respiratory] system(s) required my full and direct attention, intervention and personal management. The aggregate critical care time was [36] minutes. This time is in addition to time spent performing reported procedures but includes the following: [x] Data Review and interpretation [x] Patient assessment and monitoring of vital signs [x] Documentation [x] Medication orders and management History Interval history: Patient with Covid-19 infection, fever Fever 100.7 yesterday COVID19: Positive Hospitalist Physical - Physical exam Narrative exam: GEN: Not in acute distress, obese HEENT: Normocephalic, atraumatic, Neck: supple, No JVD Lungs: Clear to auscultation bilaterally heart;S1 and S2 reg, no murmurs, rubs or gallop Abd:soft, non tender, non distended, normal bowel sounds, Ext: No edema, no clubbing, no cyanosis, Neuro: Intubated - Constitutional Vitals: Temp Pulse Resp BP Pulse Ox 98.1 F 78 25 H 145/57 99 05/24/19 08:00 05/24/19 08:40 05/24/19 06:30 05/24/19 08:40 05/24/19 08:40 General appearance: Present: other (Currently on a ventilator and sedated) Results - Labs CBC & Chem 7: 05/24/19 05:00 05/24/19 05:00 Labs: Laboratory Last Values WBC 17.2 K/mm3 (4.5-11.0) H 05/24/19 05:00 RBC 2.16 M/mm3 (3.65-5.03) L 05/24/19 05:00 Hgb 5.9 gm/dl (10.1-14.3) L* 05/24/19 05:00 Hct 18.1 % (30.3-42.9) L* 05/24/19 05:00 MCV 84 fl (79-97) 05/24/19 05:00 MCH 27 pg (28-32) L 05/24/19 05:00 MCHC 33 % (30-34) 05/24/19 05:00 RDW 15.3 % (13.2-15.2) H 05/24/19 05:00 Plt Count 214 K/mm3 (140-440) 05/24/19 05:00 Lymph % (Auto) 6.4 % (13.4-35.0) L 05/17/19 05:43 Mora % (Auto) 4.9 % (0.0-7.3) 05/17/19 05:43 Eos % (Auto) 0.9 % (0.0-4.3) 05/17/19 05:43 Baso % (Auto) 0.3 % (0.0-1.8) 05/17/19 05:43 Lymph # 0.5 K/mm3 (1.2-5.4) L 05/17/19 05:43 Mora # 0.4 K/mm3 (0.0-0.8) 05/17/19 05:43 Eos # 0.1 K/mm3 (0.0-0.4) 05/17/19 05:43 Baso # 0.0 K/mm3 (0.0-0.1) 05/17/19 05:43 Seg Neutrophils % 87.5 % (40.0-70.0) H 05/17/19 05:43 Seg Neutrophils # 7.2 K/mm3 (1.8-7.7) 05/17/19 05:43 D-Dimer 2422.36 ng/mlDDU (0-234) H 05/24/19 05:00 ABG pH 7.471 pH Units (7.350-7.450) H 05/24/19 03:55 ABG pCO2 35.3 mm Hg 05/24/19 03:55 ABG pO2 163.2 mm Hg (80.0-90.0) H 05/24/19 03:55 ABG HCO3 25.2 mmol/L (20.0-26.0) 05/24/19 03:55 ABG O2 Saturation 99.1 % (95.0-99.0) H 05/24/19 03:55 ABG O2 Content 8.6 (0.0-44) 05/24/19 03:55 ABG Base Excess 1.4 mmol/L (-2.0-3.0) 05/24/19 03:55 ABG Hemoglobin 6.0 gm/dl (12.0-16.0) L 05/24/19 03:55 ABG Carboxyhemoglobin 1.8 % (0.0-5.0) 05/24/19 03:55 ABG Methemoglobin 0.5 % (0.0-1.5) 05/24/19 03:55 Oxyhemoglobin 96.8 % (95.0-99.0) 05/24/19 03:55 FiO2 75 % 05/24/19 03:55 Sodium 141 mmol/L (137-145) 05/24/19 05:00 Potassium 3.5 mmol/L (3.6-5.0) L D 05/24/19 05:00 Chloride 93.4 mmol/L (98-107) L 05/24/19 05:00 Carbon Dioxide 21 mmol/L (22-30) L 05/24/19 05:00 Anion Gap 30 mmol/L 05/24/19 05:00 BUN 97 mg/dL (7-17) H 05/24/19 05:00 Creatinine 7.9 mg/dL (0.7-1.2) H 05/24/19 05:00 Estimated GFR 6 ml/min 05/24/19 05:00 BUN/Creatinine Ratio 12 % 05/24/19 05:00 Glucose 312 mg/dL (65-100) H 05/24/19 05:00 POC Glucose 339 (70-105) H 05/24/19 05:29 Hemoglobin A1c 7.7 % (4-6) H 05/15/19 Unknown Lactic Acid 1.40 mmol/L (0.7-2.0) 05/15/19 11:41 Calcium 8.7 mg/dL (8.4-10.2) 05/24/19 05:00 Ferritin 3849.0 ng/mL (13.0-400.0) H 05/24/19 05:00 Total Bilirubin 0.30 mg/dL (0.1-1.2) 05/18/19 11:15 AST 37 units/L (5-40) 05/18/19 11:15 ALT < 5 units/L (7-56) L 05/18/19 11:15 Alkaline Phosphatase 56 units/L (35-129) 05/18/19 11:15 Lactate Dehydrogenase 904 units/L (91-180) H 05/24/19 05:00 C-Reactive Protein 44.40 mg/dL (0.00-1.30) H 05/24/19 05:00 NT-Pro-B Natriuret Pep 7240 pg/mL (0-900) H 05/15/19 09:11 Total Protein 6.8 g/dL (6.3-8.2) 05/18/19 11:15 Albumin 3.0 g/dL (3.9-5) L 05/18/19 11:15 Albumin/Globulin Ratio 0.8 % 05/18/19 11:15 Urine Color Straw (Yellow) 05/15/19 12:07 Urine Turbidity Clear (Clear) 05/15/19 12:07 Urine pH 7.0 (5.0-7.0) 05/15/19 12:07 Ur Specific [place] 1.009 (1.003-1.030) 05/15/19 12:07 Urine Protein 100 mg/dl mg/dL (Negative) 05/15/19 12:07 Urine Glucose (UA) >=500 mg/dL (Negative) 05/15/19 12:07 Urine Ketones Neg mg/dL (Negative) 05/15/19 12:07 Urine Blood Sm (Negative) 05/15/19 12:07 Urine Nitrite Neg (Negative) 05/15/19 12:07 Urine Bilirubin Neg (Negative) 05/15/19 12:07 Urine Urobilinogen < 2.0 mg/dL (<2.0) 05/15/19 12:07 Ur Leukocyte Esterase Neg (Negative) 05/15/19 12:07 Urine WBC (Auto) 3.0 /HPF (0.0-6.0) 05/15/19 12:07 Urine RBC (Auto) 18.0 /HPF (0.0-6.0) 05/15/19 12:07 Urine Mucus Few /HPF 05/15/19 12:07 Random Vancomycin 11.9 ug/mL (0-40.0) 05/17/19 14:57 Salicylates < 0.3 mg/dL (2.8-20.0) L 05/15/19 13:10 Acetaminophen < 5.0 ug/mL (10.0-30.0) L 05/15/19 13:10 Hepatitis A IgM Ab Non-reactive (NonReactive) 05/22/19 10:50 Hep Bs Antigen Non-reactive (Negative) 05/22/19 10:50 Hep B Core IgM Ab Non-reactive (NonReactive) 05/22/19 10:50 Hepatitis C Antibody Non-reactive (NonReactive) 05/22/19 10:50 Miscellaneous Test See scanned result 05/16/19 Unknown Microbiology: Microbiology 05/15/19 Unknown Sputum - Endotracheal Wash Sputum Culture - Preliminary Streptococcus Pneumoniae Castellanos/IV: Voiding Method Indwelling Catheter IV Catheter Type [Right VAS Cath Femoral] IV Catheter Type [Left INT / Saline Lock External Jugular] IV Catheter Type [Right Wrist] INT / Saline Lock IV Catheter Type [Right INT / Saline Lock External Jugular] Active Medications - Current Medications Current Medications: Generic Name Dose Route Start Last Admin Trade Name Freq PRN Reason Stop Dose Admin Acetaminophen 650 mg 05/15/19 23:04 05/21/19 16:17 Tylenol PO 650 mg Q4H PRN Administration Pain MILD(1-3)/Fever >100.5/MELVIN Acetaminophen 650 mg 05/16/19 01:28 05/16/19 01:44 Tylenol PA 650 mg Q6H PRN Administration TEMP > 100.3 Lipase/Protease/Amylase 1 each 05/16/19 11:[address] 10,500 Unit FEEDTUBE PRN PRN For Clogged Feeding Tube Enoxaparin Sodium 80 mg 05/23/19 12:00 05/23/19 13:16 Enoxaparin SUB-Q 80 mg Q24HR LUIS M Administration Famotidine 20 mg 05/18/19 10:00 05/23/19 09:34 Pepcid PO 20 mg DAILY LUIS M Administration Hydromorphone HCl 0.25 mg 05/15/19 23:04 05/19/19 12:57 Dilaudid IV 0.25 mg Q3H PRN Administration Pain, Moderate (4-6) Hydrophilic Ointment 1 applic 05/15/19 09:48 Vaseline Lip Therapy TP Q2HR PRN Dry Lips Propofol 1,000 mg in 100 mls @ 2.585 mls/hr 05/15/19 11:00 05/17/19 17:51 Diprivan 10 Mg/Ml IV 35 mcg/kg/min TITR LUIS M 18.098 mls/hr Administration Protocol 5 MCG/KG/MIN Ceftriaxone Sodium 2 gm in 100 mls @ 200 mls/hr 05/21/19 11:00 05/23/19 13:15 Rocephin/Ns 2 Gm/100 Ml IV 05/27/19 10:29 200 mls/hr Q24HR LUIS M Administration Protocol Norepinephrine 4 mg in 250 mls @ 18.75 mls/hr 05/21/19 23:45 05/22/19 00:22 Levophed Drip 4 Mg/Ns 250 Ml IV 0 mcg/min TITR LUIS M 0 mls/hr Titration Protocol 5 MCG/MIN Sodium Chloride 100 mls @ 999 mls/hr 05/23/19 08:59 Nacl 0.9% IV COBY PRN Hypotension Insulin Glargine 30 units 05/23/19 22:00 05/23/19 21:00 Lantus SUB-Q 05/24/19 12:00 30 units BID LUIS M Administration Insulin Glargine 5 units 05/24/19 10:00 Lantus SUB-Q 05/24/19 10:01 ONCE ONE Insulin Glargine 35 units 05/24/19 22:00 Lantus SUB-Q BID LUIS M Insulin Human Lispro 0 unit 05/16/19 00:00 05/24/19 05:21 Humalog SUB-Q 8 unit Q6HR LUIS M Administration Protocol Insulin Human Regular 12 units 05/24/19 12:00 Humulin R SUB-Q Q6HR LUIS M Metoclopramide HCl 5 mg 05/15/19 23:24 Reglan IV Q6H PRN Nausea And Vomiting Metoclopramide HCl 5 mg 05/23/19 09:00 05/24/19 05:21 Reglan IV 05/25/19 06:01 5 mg Q6HR LUIS M Administration Multi-Ingred Cream/Lotion/Oil/Oint 1 applic 05/15/19 09:48 Artificial Tears Ophth Oint OU Q4HR PRN Dry Eye(s) Ondansetron HCl 4 mg 05/15/19 23:04 05/19/19 18:30 Zofran IV 4 mg Q8H PRN Administration Nausea And Vomiting Simple Syrup 15 ml 05/16/19 11:14 Simple Syrup FEEDTUBE PRN PRN Hypoglycemia Simple Syrup 30 ml 05/16/19 11:14 Simple Syrup FEEDTUBE PRN PRN Hypoglycemia Sodium Bicarbonate 325 mg 05/16/19 11:14 Sodium Bicarbonate FEEDTUBE PRN PRN For Clogged Feeding Tube Sodium Bicarbonate 650 mg 05/21/19 15:00 05/23/19 21:00 Sodium Bicarbonate PO 650 mg TID LUIS M Administration Sodium Chloride 10 ml 05/16/19 10:00 05/23/19 21:03 Sodium Chloride Flush Syringe 10 Ml IV 10 ml BID LUIS M Administration Sodium Chloride 10 ml 05/15/19 23:04 Sodium Chloride Flush Syringe 10 Ml IV PRN PRN LINE FLUSH Nutrition/Malnutrition Assess - Dietary Evaluation Nutrition/Malnutrition Findings: Nutrition Notes Start: 05/16/19 08:31 Freq: Status: Active Protocol: Document 05/22/19 09:52 LM (Rec: 05/22/19 09:56 LM [id number]) Nutrition Notes Initial or Follow up Reassessment Current Diagnosis CKD (stage V CKD),Diabetes, Hypertension,Respiratory Failure Other Pertinent Diagnosis AV graft infection, fever, COVID-19 positive Current Diet Nepro 1.8 at 45ml/hr Labs/Tests BG 493 Pertinent Medications Humalog Lantus Levophed Zinc Height 5 ft 5 in Weight 82.8 kg [place] Body Weight (kg) 56.81 BMI 30.4 Weight Status Obese Subjective/Other Information Pt tolerating TF at goal rate. Percent of energy/protein needs met: 100%/76% Burn Absent Trauma Absent Current % PO Negligible Minimum of two criteria No Reduced Veneer Marker Strength Measurably Reduced (severe) #1 Nutrition Diagnosis Inadequate oral intake Diagnosis Progress(for reassessment Continues documentation) Is patient on ventilator? Yes Is Patient Ambulatory and/or Out of Bed No REE-([facility]-confined to bed) [phone] Calculation Used for Recommendations [facility] Additional Notes Protein: 114g (>/=2g/kg using IBW 57kg) Fluid: per MD Nutrition Intervention Change Diet Order: TF Nutrition Support: Nepro 1.8 at 45ml/hr Flush 200 ml q4h Kcal 1,944 Protein (gm) 87 Fluid (mL) 785 Goal #1 TF tolerance Goal #2 Meet at least 75% of energy and protein needs via TF Anticipated Discharge Needs: unable to determine at this time Follow-Up By: 05/29/19 Additional Comments F/U for TF tolerance
[2019-05-24] MEDS: cefTRIAXone/NS 2 GM/100 ML 2 GM/100 ML BAG IV SCH (09:47)
[2019-05-24] MEDS: SODIUM BICARBONATE 650 MG TAB PO SCH ×3 (09:47→21:11)
[2019-05-24] MEDS: FAMOTIDINE 20 MG TAB PO SCH (09:47)
[2019-05-24] MEDS: INSULIN GLARGINE 100 UNITS/ML SUB-Q SCH ×2 (09:48→21:11)
--- NOTE | 2019-05-24 09:48 | Progress Note ---
Assessment and Plan - Patient Problems (1) CKD (chronic kidney disease) stage 5, GFR less than 15 ml/min Current Visit: No Status: Acute Plan to address problem: With worsening renal parameters, we initiated HD. Discussed with vascular surgery, and we had vascath placed for initiation as her new AVG has not matured for use at this time. Placed HD orders for 3 consecutive days. Plan for 3rd HD session today. (2) Acute encephalopathy Current Visit: Yes Status: Acute Plan to address problem: With worsening renal clearance, concerned that uremic can also be contributing to her metal status along with her severe sepsis in the setting of COVID-19 pneumonia Plan to dialyze again today. (3) Acute respiratory failure Current Visit: Yes Status: Acute Qualifiers: Respiratory failure complication: hypoxia Qualified Code(s): J96.01 - Acute respiratory failure with hypoxia Plan to address problem: Management per primary attending/ICU team. (4) Pneumonia due to COVID-19 virus Current Visit: Yes Status: Acute Plan to address problem: Management per ID recommendations. (5) Hypertensive chronic kidney disease with stage 5 chronic kidney disease or end stage renal disease Current Visit: Yes Status: Chronic Plan to address problem: Off all blood pressure medications at this time. Off pressors. Will monitor closely (6) Type 2 diabetes mellitus with diabetic chronic kidney disease Current Visit: Yes Status: Chronic Plan to address problem: DM management per primary attending. (7) Anemia in CKD (chronic kidney disease) Current Visit: Yes Status: Acute Qualifiers: Chronic kidney disease stage: stage 5, not on chronic dialysis Qualified Code(s): N18.5 - Chronic kidney disease, stage 5; D63.1 - Anemia in chronic kidney disease Plan to address problem: Transfusion orders placed by PCP. Transfuse to maintain Hgb> 7.0. Recommend to transfuse while on HD so as to minimize fluid overload. Subjective Date of service: 05/24/19 Principal diagnosis: LOI on CKD Interval history: Remains intubated. She had her second session of HD, BFR had to be decreased to 250ml/min as her heart rate became erratic during treatment, with HR going from 60 to up to 150-160 per dialysis staff. Had removal of 1L UF with treatment. Plan for third session today. COVID19: Positive Objective - Vital Signs Vital signs: Vital Signs - 12hr 05/23/19 05/23/19 05/23/19 22:00 22:04 22:30 Temperature Pulse Rate 78 75 78 Pulse Rate [ From Monitor] Respiratory 25 H 25 H 25 H Rate Blood Pressure 138/59 138/59 104/51 O2 Sat by Pulse 100 100 100 Oximetry 05/23/19 05/23/19 05/23/19 23:00 23:30 23:48 Temperature Pulse Rate 72 72 72 Pulse Rate [ From Monitor] Respiratory 25 H 25 H Rate Blood Pressure 107/47 126/54 126/54 O2 Sat by Pulse 100 100 Oximetry 05/24/19 05/24/19 05/24/19 00:00 00:30 01:00 Temperature 98.9 F Pulse Rate 73 74 71 Pulse Rate [ 73 From Monitor] Respiratory 25 H 25 H 25 H Rate Blood Pressure 116/51 127/59 105/48 O2 Sat by Pulse 100 100 100 Oximetry 05/24/19 05/24/19 05/24/19 01:30 02:00 02:30 Temperature Pulse Rate 72 72 72 Pulse Rate [ From Monitor] Respiratory 25 H 25 H 25 H Rate Blood Pressure 126/56 117/53 122/54 O2 Sat by Pulse 100 100 100 Oximetry 05/24/19 05/24/19 05/24/19 03:00 03:30 03:33 Temperature 98.8 F Pulse Rate 69 70 Pulse Rate [ From Monitor] Respiratory 25 H 25 H Rate Blood Pressure 125/54 121/54 O2 Sat by Pulse 100 100 Oximetry 05/24/19 05/24/19 05/24/19 03:49 04:00 04:30 Temperature 98.8 F Pulse Rate 71 83 Pulse Rate [ 71 From Monitor] Respiratory 25 H 24 Rate Blood Pressure 134/57 120/50 O2 Sat by Pulse 100 100 Oximetry 05/24/19 05/24/19 05/24/19 04:58 05:00 05:30 Temperature Pulse Rate 77 70 74 Pulse Rate [ From Monitor] Respiratory 25 H 25 H Rate Blood Pressure 135/53 130/55 142/61 O2 Sat by Pulse 100 100 96 Oximetry 05/24/19 05/24/19 05/24/19 06:00 06:30 07:00 Temperature Pulse Rate 74 78 68 Pulse Rate [ From Monitor] Respiratory 25 H 25 H 25 H Rate Blood Pressure 126/47 145/57 127/49 O2 Sat by Pulse 96 99 98 Oximetry 05/24/19 05/24/19 05/24/19 07:30 08:00 08:30 Temperature 98.1 F Pulse Rate 69 70 72 Pulse Rate [ From Monitor] Respiratory 25 H 25 H 25 H Rate Blood Pressure 123/44 129/49 122/51 O2 Sat by Pulse 99 98 99 Oximetry 05/24/19 05/24/19 05/24/19 08:40 09:00 09:30 Temperature Pulse Rate 78 75 Pulse Rate [ From Monitor] Respiratory 25 H Rate Blood Pressure 145/57 133/51 124/50 O2 Sat by Pulse 99 100 100 Oximetry - General Appearance General appearance: chronically ill, intubated, frail EENT: ATNC Neck: no JVD Respiratory: Present: Decreased Breath Sounds Cardiology: regular Gastrointestinal: normal Integumentary: no rash Musculoskeletal: deferred - Lab 05/24/19 05:00 05/24/19 05:00 Most recent lab results ABG pH 7.471 pH Units (7.350-7.450) H 05/24/19 03:55 ABG pCO2 35.3 mm Hg 05/24/19 03:55 ABG pO2 163.2 mm Hg (80.0-90.0) H 05/24/19 03:55 ABG HCO3 25.2 mmol/L (20.0-26.0) 05/24/19 03:55 ABG O2 Saturation 99.1 % (95.0-99.0) H 05/24/19 03:55 Calcium 8.7 mg/dL (8.4-10.2) 05/24/19 05:00 - Allied health notes Allied health notes reviewed: nursing Medications & Allergies - Medications Allergies/Adverse Reactions: Allergies No Known Allergies Allergy (Unverified 05/10/19 15:33) Home Medications: Home Medications Medication Instructions Recorded Confirmed Last Taken Type Aspirin [Adult Aspirin] 81 mg PO DAILY 05/10/19 05/20/19 05/11/19 History Cyanocobalamin (Vitamin B-12) 2,500 mcg PO DAILY 05/10/19 05/20/19 05/11/19 History [Vitamin B12] Ferrous Sulfate [Feosol 325 MG tab] 325 mg PO DAILY 05/10/19 05/20/19 05/11/19 History Gabapentin 100 mg PO TID 05/10/19 05/20/19 05/11/19 History Insulin Aspart (Nf) [NovoLOG 100 10 unit SQ TIDAC 05/10/19 05/20/19 05/11/19 History UNITS/ML VIAL] Insulin Glargine [Lantus VIAL] 36 unit SQ QAM 05/10/19 05/20/19 05/11/19 History Tizanidine HCl [Tizanidine 2mg tab] 2 mg PO DAILY 05/10/19 05/20/19 05/11/19 History Torsemide [Demadex] 20 mg PO BID 05/10/19 05/20/19 05/11/19 History amLODIPine 10 mg PO BID 05/10/19 05/20/19 05/12/19 04:30 History calcitrioL [Rocaltrol] 0.5 mcg PO DAILY 05/10/19 05/20/19 05/11/19 History carvediloL [Coreg] 12.5 mg PO BID 05/10/19 05/20/19 05/12/19 04:30 History oxyCODONE /ACETAMINOPHEN [Percocet 1 tab PO Q6HR PRN #24 tablet 05/12/19 05/20/19 Unknown Rx 5/325 mg] Active Medications: Generic Name Dose Route Start Last Admin Trade Name Freq PRN Reason Stop Dose Admin Acetaminophen 650 mg 05/15/19 23:04 05/21/19 16:17 Tylenol PO 650 mg Q4H PRN Administration Pain MILD(1-3)/Fever >100.5/MELVIN Acetaminophen 650 mg 05/16/19 01:28 05/16/19 01:44 Tylenol [place] 650 mg Q6H PRN Administration TEMP > 100.3 Lipase/Protease/Amylase 1 each 05/16/19 11:[address] 10,500 Unit FEEDTUBE PRN PRN For Clogged Feeding Tube Enoxaparin Sodium 80 mg 05/23/19 12:00 05/23/19 13:16 Enoxaparin SUB-Q 80 mg Q24HR LUIS M Administration Famotidine 20 mg 05/18/19 10:00 05/23/19 09:34 Pepcid PO 20 mg DAILY LUIS M Administration Hydromorphone HCl 0.25 mg 05/15/19 23:04 05/19/19 12:57 Dilaudid IV 0.25 mg Q3H PRN Administration Pain, Moderate (4-6) Hydrophilic Ointment 1 applic 05/15/19 09:48 Vaseline Lip Therapy TP Q2HR PRN Dry Lips Propofol 1,000 mg in 100 mls @ 2.585 mls/hr 05/15/19 11:00 05/17/19 17:51 Diprivan 10 Mg/Ml IV 35 mcg/kg/min TITR LUIS M 18.098 mls/hr Administration Protocol 5 MCG/KG/MIN Ceftriaxone Sodium 2 gm in 100 mls @ 200 mls/hr 05/21/19 11:00 05/23/19 13:15 Rocephin/Ns 2 Gm/100 Ml IV 05/27/19 10:29 200 mls/hr Q24HR LUIS M Administration Protocol Norepinephrine 4 mg in 250 mls @ 18.75 mls/hr 05/21/19 23:45 05/22/19 00:22 Levophed Drip 4 Mg/Ns 250 Ml IV 0 mcg/min TITR LUIS M 0 mls/hr Titration Protocol 5 MCG/MIN Sodium Chloride 100 mls @ 999 mls/hr 05/23/19 08:59 Nacl 0.9% IV COBY PRN Hypotension Insulin Glargine 30 units 05/23/19 22:00 05/23/19 21:00 Lantus SUB-Q 05/24/19 12:00 30 units BID LUIS M Administration Insulin Glargine 5 units 05/24/19 10:00 Lantus SUB-Q 05/24/19 10:01 ONCE ONE Insulin Glargine 35 units 05/24/19 22:00 Lantus SUB-Q BID [facility] Insulin Human Lispro 0 unit 05/16/19 00:00 05/24/19 05:21 Humalog SUB-Q 8 unit Q6HR [facility] Administration Protocol Insulin Human Regular 12 units 05/24/19 12:00 Humulin R SUB-Q Q6HR LUIS M Metoclopramide HCl 5 mg 05/15/19 23:24 Reglan IV Q6H PRN Nausea And Vomiting Metoclopramide HCl 5 mg 05/23/19 09:00 05/24/19 05:21 Reglan IV 05/25/19 06:01 5 mg Q6HR LUIS M Administration Multi-Ingred Cream/Lotion/Oil/Oint 1 applic 05/15/19 09:48 Artificial Tears Ophth Oint OU Q4HR PRN Dry Eye(s) Ondansetron HCl 4 mg 05/15/19 23:04 05/19/19 18:30 Zofran IV 4 mg Q8H PRN Administration Nausea And Vomiting Simple Syrup 15 ml 05/16/19 11:14 Simple Syrup FEEDTUBE PRN PRN Hypoglycemia Simple Syrup 30 ml 05/16/19 11:14 Simple Syrup FEEDTUBE PRN PRN Hypoglycemia Sodium Bicarbonate 325 mg 05/16/19 11:14 Sodium Bicarbonate FEEDTUBE PRN PRN For Clogged Feeding Tube Sodium Bicarbonate 650 mg 05/21/19 15:00 05/23/19 21:00 Sodium Bicarbonate PO 650 mg TID LUIS M Administration Sodium Chloride 10 ml 05/16/19 10:00 05/23/19 21:03 Sodium Chloride Flush Syringe 10 Ml IV 10 ml BID LUIS M Administration Sodium Chloride 10 ml 05/15/19 23:04 Sodium Chloride Flush Syringe 10 Ml IV PRN PRN LINE FLUSH
[2019-05-24] MEDS ORDERED: INSULIN GLARGINE 100 UNITS/ML SUB-Q ONE (10:00)
--- NOTE | 2019-05-24 11:17 | Progress Note ---
Assessment and Plan Acute hypoxemic respiratory failure orally intubated on MVS COVID 19 POSITIVE Sepsis secondary Bilateral pneumonia -+ Strep in tracheal aspirate/COVID pneumonia Oropharyngeal dysphagia Acute metabolic encephalopathy Infected AV graft for dialysis; ESRD on HD Type 2 diabetes mellitus; moderate control Lactic acidosis, present on admission Hypernatremia Continue PEEP at 10, monitor airway pressures, slowly wean supplemental oxygen t o keep O2 sats 90-92% Continue Promotility agent for high residuals. Advance tube feedings to goal as tolerated Insulin therapy on going for hyperglycemia, adjust dosing ABG and CXR in the morning Wean vasopressor support for MAP>65 Conservative fluid management Continue all critical care as outlined below -Continue with MVS, Lung protective strategies, monitor airway pressures -VAP bundle addressed -Continue aspiration precautions, HOB>40 -Continue daily assessment for readiness for SBT- currently on high ventilatory settings, not ready fro weaning -Continue Stress ulcer prophylaxis -Continue VTE prophylaxis -Supportive transfusions as indicated to keep HgB >7g/dL -Continue enteric nutritional support at goal rate. Monitor glycemic control, with target blood glucose 140-180 mg/dL while critically ill. -Avoid hypoglycemia- Poor glycemic control -ContinueCOVID isolationprecautions per [facility] protocol -Continue to avoid nephrotoxins, adjust all medications for GFR and CrCL -Supportive HD per renal service - Continue bronchodilators with pulmonary hygiene - Continue prn analgesia per CPOT score - Continue to maintain of sleep-wake cycle, avoid delirium - PT/OT/ROM exercises - Continue mobility protocol , off loading and skin assessment per protocol for pressure ulcer prevention - continue other care per attending / other consultants CONDITION: CRITICAL PROGNOSIS: GUARDED CODE STATUS: FULL CODE The high probability of a clinically significant, sudden or life-threatening deterioration of the [respiratory, renal, Neurology] system(s) required my full and direct attention, intervention and personal management. The aggregate critical care time was [35] minutes without overlap. Time includes spent on; [x] Data Review and interpretation [x] Patient assessment and monitoring of vital signs [x] Documentation [x] Medication orders and management Subjective Date of service: 05/24/19 Principal diagnosis: LOI on CKD Interval history: Patient is seen today for: Acute hypoxemic respiratory failure orally intubated on MVS; COVID 19 POSITIVE; Bilateral pneumonia; Oropharyngeal dysphagia ; Acute metabolic encephalopathy Seen and examined at bedside; 24hour events reviewed; nursing and respiratory care staff consulted; no adverse overnight events reported to me; Vitals, labs, medications, chart reviewed.resting peacefully in bed; remains on MVS; oxygen requirements remain high 75% FiO2; no further episodes of vomiting has been on scheduled Reglan; COVID19: Positive Objective Vital Signs - 12hr 05/23/19 05/23/19 05/24/19 23:30 23:48 00:00 Temperature 98.9 F Pulse Rate 72 72 73 Pulse Rate [ 73 From Monitor] Respiratory 25 H 25 H Rate Blood Pressure 126/54 126/54 116/51 O2 Sat by Pulse 100 100 100 Oximetry 05/24/19 05/24/19 05/24/19 00:30 01:00 01:30 Temperature Pulse Rate 74 71 72 Pulse Rate [ From Monitor] Respiratory 25 H 25 H 25 H Rate Blood Pressure 127/59 105/48 126/56 O2 Sat by Pulse 100 100 100 Oximetry 05/24/19 05/24/19 05/24/19 02:00 02:30 03:00 Temperature Pulse Rate 72 72 69 Pulse Rate [ From Monitor] Respiratory 25 H 25 H 25 H Rate Blood Pressure 117/53 122/54 125/54 O2 Sat by Pulse 100 100 100 Oximetry 05/24/19 05/24/19 05/24/19 03:30 03:33 03:49 Temperature 98.8 F 98.8 F Pulse Rate 70 Pulse Rate [ From Monitor] Respiratory 25 H Rate Blood Pressure 121/54 O2 Sat by Pulse 100 Oximetry 05/24/19 05/24/19 05/24/19 04:00 04:30 04:58 Temperature Pulse Rate 71 83 77 Pulse Rate [ 71 From Monitor] Respiratory 25 H 24 Rate Blood Pressure 134/57 120/50 135/53 O2 Sat by Pulse 100 100 100 Oximetry 05/24/19 05/24/19 05/24/19 05:00 05:30 06:00 Temperature Pulse Rate 70 74 74 Pulse Rate [ From Monitor] Respiratory 25 H 25 H 25 H Rate Blood Pressure 130/55 142/61 126/47 O2 Sat by Pulse 100 96 96 Oximetry 05/24/19 05/24/19 05/24/19 06:30 07:00 07:30 Temperature Pulse Rate 78 68 69 Pulse Rate [ From Monitor] Respiratory 25 H 25 H 25 H Rate Blood Pressure 145/57 127/49 123/44 O2 Sat by Pulse 99 98 99 Oximetry 05/24/19 05/24/19 05/24/19 08:00 08:30 08:40 Temperature 98.1 F Pulse Rate 70 72 78 Pulse Rate [ From Monitor] Respiratory 25 H 25 H Rate Blood Pressure 129/49 122/51 145/57 O2 Sat by Pulse 98 99 99 Oximetry 05/24/19 05/24/19 05/24/19 09:00 09:30 10:22 Temperature Pulse Rate 75 75 Pulse Rate [ From Monitor] Respiratory 25 H Rate Blood Pressure 133/51 124/50 124/50 O2 Sat by Pulse 100 100 100 Oximetry Constitutional: no acute distress, other (sedated) Eyes: non-icteric ENT: oropharynx moist, other (ETT at 22cm at the lip, NGT ) Neck: supple, no lymphadenopathy Effort: normal Ascultation: Bilateral: clear, diminished breath sounds, rhonchi Percussion: Bilateral: not dull Cardiovascular: regular rate and rhythm, other (S1,S2) Gastrointestinal: normoactive bowel sounds, soft, non-tender, non-distended Integumentary: normal Extremities: no cyanosis, no edema Neurologic: pupils equal and round, unable to assess (sedated) Psychiatric: other (encephalopathic) CBC and BMP: 05/26/19 03:43 05/27/19 08:59 ABG, PT/INR, D-dimer: ABG ABG pH 7.471 pH Units (7.350-7.450) H 05/24/19 03:55 ABG pCO2 35.3 mm Hg 05/24/19 03:55 ABG pO2 163.2 mm Hg (80.0-90.0) H 05/24/19 03:55 ABG O2 Saturation 99.1 % (95.0-99.0) H 05/24/19 03:55 PT/INR, D-dimer D-Dimer 2422.36 ng/mlDDU (0-234) H 05/24/19 05:00 Abnormal lab findings: Abnormal Labs 05/15/19 05/15/19 05/15/19 08:07 08:31 09:11 WBC 11.9 H RBC 3.41 L Hgb 9.3 L Hct 30.1 L MCH 27 L RDW Lymph % (Auto) Lymph # Seg Neutrophils % Seg Neutrophils # D-Dimer ABG pH ABG pO2 ABG HCO3 ABG O2 Saturation ABG Base Excess ABG Hemoglobin Oxyhemoglobin Sodium 136 L Potassium Chloride Carbon Dioxide 15 L D BUN 74 H Creatinine 5.8 H Glucose 267 H POC Glucose 344 H Hemoglobin A1c Lactic Acid Calcium Ferritin ALT < 5 L Lactate Dehydrogenase C-Reactive Protein NT-Pro-B Natriuret Pep Albumin 3.2 L Salicylates Acetaminophen Crossmatch 05/15/19 05/15/19 05/15/19 09:11 09:11 09:30 WBC RBC Hgb Hct MCH RDW Lymph % (Auto) Lymph # Seg Neutrophils % Seg Neutrophils # D-Dimer ABG pH ABG pO2 ABG HCO3 ABG O2 Saturation ABG Base Excess -2.8 L ABG Hemoglobin 8.2 L Oxyhemoglobin 94.6 L Sodium Potassium Chloride Carbon Dioxide BUN Creatinine Glucose POC Glucose Hemoglobin A1c Lactic Acid 3.50 H* Calcium Ferritin ALT Lactate Dehydrogenase C-Reactive Protein NT-Pro-B Natriuret Pep 7240 H Albumin Salicylates Acetaminophen Crossmatch 05/15/19 05/15/19 05/15/19 13:10 13:10 Unknown WBC RBC Hgb Hct MCH RDW Lymph % (Auto) Lymph # Seg Neutrophils % Seg Neutrophils # D-Dimer ABG pH ABG pO2 ABG HCO3 ABG O2 Saturation ABG Base Excess ABG Hemoglobin Oxyhemoglobin Sodium Potassium Chloride Carbon Dioxide BUN Creatinine Glucose POC Glucose Hemoglobin A1c 7.7 H Lactic Acid Calcium Ferritin ALT Lactate Dehydrogenase C-Reactive Protein NT-Pro-B Natriuret Pep Albumin Salicylates < 0.3 L Acetaminophen < 5.0 L Crossmatch 05/16/19 05/16/19 05/16/19 03:44 03:58 13:08 WBC 12.9 H RBC Hgb Hct MCH RDW Lymph % (Auto) 7.1 L Lymph # 0.9 L Seg Neutrophils % 87.7 H Seg Neutrophils # 11.3 H D-Dimer ABG pH ABG pO2 213.3 H ABG HCO3 ABG O2 Saturation 99.3 H ABG Base Excess ABG Hemoglobin 7.5 L Oxyhemoglobin Sodium Potassium Chloride Carbon Dioxide BUN Creatinine Glucose POC Glucose 231 H Hemoglobin A1c Lactic Acid Calcium Ferritin ALT Lactate Dehydrogenase C-Reactive Protein NT-Pro-B Natriuret Pep Albumin Salicylates Acetaminophen Crossmatch 05/16/19 05/16/19 05/17/19 18:28 23:34 05:02 WBC RBC Hgb Hct MCH RDW Lymph % (Auto) Lymph # Seg Neutrophils % Seg Neutrophils # D-Dimer ABG pH ABG pO2 91.9 H ABG HCO3 ABG O2 Saturation ABG Base Excess -3.6 L ABG Hemoglobin 7.2 L Oxyhemoglobin Sodium Potassium Chloride Carbon Dioxide BUN Creatinine Glucose POC Glucose 181 H 177 H Hemoglobin A1c Lactic Acid Calcium Ferritin ALT Lactate Dehydrogenase C-Reactive Protein NT-Pro-B Natriuret Pep Albumin Salicylates Acetaminophen Crossmatch 05/17/19 05/17/19 05/17/19 05:43 05:43 15:15 WBC RBC 3.06 L Hgb 8.6 L Hct 26.1 L D MCH RDW Lymph % (Auto) 6.4 L Lymph # 0.5 L Seg Neutrophils % 87.5 H Seg Neutrophils # D-Dimer ABG pH ABG pO2 ABG HCO3 ABG O2 Saturation ABG Base Excess ABG Hemoglobin Oxyhemoglobin Sodium Potassium Chloride Carbon Dioxide 17 L BUN 76 H Creatinine 5.4 H Glucose 231 H POC Glucose 302 H Hemoglobin A1c Lactic Acid Calcium Ferritin ALT Lactate Dehydrogenase C-Reactive Protein NT-Pro-B Natriuret Pep Albumin Salicylates Acetaminophen Crossmatch 05/17/19 05/18/19 05/18/19 18:44 00:04 05:35 WBC RBC Hgb Hct MCH RDW Lymph % (Auto) Lymph # Seg Neutrophils % Seg Neutrophils # D-Dimer ABG pH ABG pO2 ABG HCO3 ABG O2 Saturation ABG Base Excess ABG Hemoglobin Oxyhemoglobin Sodium Potassium Chloride Carbon Dioxide BUN Creatinine Glucose POC Glucose 258 H 331 H 329 H Hemoglobin A1c Lactic Acid Calcium Ferritin ALT Lactate Dehydrogenase C-Reactive Protein NT-Pro-B Natriuret Pep Albumin Salicylates Acetaminophen Crossmatch 05/18/19 05/18/19 05/18/19 11:15 11:15 11:15 WBC RBC Hgb Hct MCH RDW Lymph % (Auto) Lymph # Seg Neutrophils % Seg Neutrophils # D-Dimer 5072.66 H ABG pH ABG pO2 ABG HCO3 ABG O2 Saturation ABG Base Excess ABG Hemoglobin Oxyhemoglobin Sodium 146 H Potassium Chloride Carbon Dioxide 18 L BUN 99 H Creatinine 6.1 H Glucose 346 H POC Glucose Hemoglobin A1c Lactic Acid Calcium Ferritin 975.6 H ALT < 5 L Lactate Dehydrogenase C-Reactive Protein NT-Pro-B Natriuret Pep Albumin 3.0 L Salicylates Acetaminophen Crossmatch 05/18/19 05/18/19 05/18/19 11:15 11:55 18:11 WBC RBC Hgb Hct MCH RDW Lymph % (Auto) Lymph # Seg Neutrophils % Seg Neutrophils # D-Dimer ABG pH ABG pO2 ABG HCO3 ABG O2 Saturation ABG Base Excess ABG Hemoglobin Oxyhemoglobin Sodium Potassium Chloride Carbon Dioxide BUN Creatinine Glucose POC Glucose 334 H 397 H Hemoglobin A1c Lactic Acid Calcium Ferritin ALT Lactate Dehydrogenase 483 H C-Reactive Protein 38.00 H NT-Pro-B Natriuret Pep Albumin Salicylates Acetaminophen Crossmatch 05/18/19 05/19/19 05/19/19 Unknown 00:30 05:07 WBC RBC Hgb Hct MCH RDW Lymph % (Auto) Lymph # Seg Neutrophils % Seg Neutrophils # D-Dimer ABG pH ABG pO2 133.0 H 61.1 L ABG HCO3 ABG O2 Saturation 94.4 L ABG Base Excess -2.9 L -2.7 L ABG Hemoglobin 8.3 L 8.0 L Oxyhemoglobin 92.2 L Sodium Potassium Chloride Carbon Dioxide BUN Creatinine Glucose POC Glucose 321 H Hemoglobin A1c Lactic Acid Calcium Ferritin ALT Lactate Dehydrogenase C-Reactive Protein NT-Pro-B Natriuret Pep Albumin Salicylates Acetaminophen Crossmatch 05/19/19 05/19/19 05/19/19 05:17 12:23 15:02 WBC RBC Hgb Hct MCH RDW Lymph % (Auto) Lymph # Seg Neutrophils % Seg Neutrophils # D-Dimer ABG pH ABG pO2 ABG HCO3 ABG O2 Saturation ABG Base Excess ABG Hemoglobin Oxyhemoglobin Sodium 147 H Potassium Chloride 108.2 H Carbon Dioxide 16 L BUN 119 H Creatinine 8.5 H Glucose 315 H POC Glucose 235 H 298 H Hemoglobin A1c Lactic Acid Calcium 8.3 L Ferritin ALT Lactate Dehydrogenase C-Reactive Protein NT-Pro-B Natriuret Pep Albumin Salicylates Acetaminophen Crossmatch 05/19/19 05/20/19 05/20/19 17:42 00:11 04:17 WBC RBC Hgb Hct MCH RDW Lymph % (Auto) Lymph # Seg Neutrophils % Seg Neutrophils # D-Dimer ABG pH 7.322 L ABG pO2 58.5 L ABG HCO3 18.9 L ABG O2 Saturation 91.0 L ABG Base Excess -6.5 L ABG Hemoglobin 7.0 L Oxyhemoglobin 88.2 L Sodium Potassium Chloride Carbon Dioxide BUN Creatinine Glucose POC Glucose 310 H 277 H Hemoglobin A1c Lactic Acid Calcium Ferritin ALT Lactate Dehydrogenase C-Reactive Protein NT-Pro-B Natriuret Pep Albumin Salicylates Acetaminophen Crossmatch 05/20/19 05/20/19 05/20/19 05:29 09:06 09:06 WBC RBC Hgb Hct MCH RDW Lymph % (Auto) Lymph # Seg Neutrophils % Seg Neutrophils # D-Dimer 3193.32 H ABG pH ABG pO2 ABG HCO3 ABG O2 Saturation ABG Base Excess ABG Hemoglobin Oxyhemoglobin Sodium Potassium Chloride Carbon Dioxide BUN Creatinine Glucose POC Glucose 332 H Hemoglobin A1c Lactic Acid Calcium Ferritin 1802.0 H ALT Lactate Dehydrogenase C-Reactive Protein NT-Pro-B Natriuret Pep Albumin Salicylates Acetaminophen Crossmatch 05/20/19 05/20/19 05/20/19 09:06 12:31 18:18 WBC RBC Hgb Hct MCH RDW Lymph % (Auto) Lymph # Seg Neutrophils % Seg Neutrophils # D-Dimer ABG pH ABG pO2 ABG HCO3 ABG O2 Saturation ABG Base Excess ABG Hemoglobin Oxyhemoglobin Sodium Potassium Chloride Carbon Dioxide BUN Creatinine Glucose POC Glucose 284 H 355 H Hemoglobin A1c Lactic Acid Calcium Ferritin ALT Lactate Dehydrogenase 646 H C-Reactive Protein 56.30 H NT-Pro-B Natriuret Pep Albumin Salicylates Acetaminophen Crossmatch 05/20/19 05/21/19 05/21/19 23:43 05:04 05:05 WBC RBC Hgb Hct MCH RDW Lymph % (Auto) Lymph # Seg Neutrophils % Seg Neutrophils # D-Dimer ABG pH ABG pO2 54.1 L ABG HCO3 ABG O2 Saturation 88.4 L ABG Base Excess -4.0 L ABG Hemoglobin 6.9 L Oxyhemoglobin 85.5 L Sodium Potassium Chloride Carbon Dioxide BUN Creatinine Glucose POC Glucose 394 H 394 H Hemoglobin A1c Lactic Acid Calcium Ferritin ALT Lactate Dehydrogenase C-Reactive Protein NT-Pro-B Natriuret Pep Albumin Salicylates Acetaminophen Crossmatch 05/21/19 05/21/19 05/21/19 12:14 17:41 23:25 WBC RBC Hgb Hct MCH RDW Lymph % (Auto) Lymph # Seg Neutrophils % Seg Neutrophils # D-Dimer ABG pH 7.281 L ABG pO2 61.2 L ABG HCO3 ABG O2 Saturation 91.6 L ABG Base Excess -4.8 L ABG Hemoglobin 6.2 L Oxyhemoglobin 88.9 L Sodium Potassium Chloride Carbon Dioxide BUN Creatinine Glucose POC Glucose 457 H 427 H Hemoglobin A1c Lactic Acid Calcium Ferritin ALT Lactate Dehydrogenase C-Reactive Protein NT-Pro-B Natriuret Pep Albumin Salicylates Acetaminophen Crossmatch 05/21/19 05/22/19 05/22/19 23:45 04:35 04:48 WBC RBC Hgb Hct MCH RDW Lymph % (Auto) Lymph # Seg Neutrophils % Seg Neutrophils # D-Dimer ABG pH ABG pO2 ABG HCO3 ABG O2 Saturation ABG Base Excess ABG Hemoglobin Oxyhemoglobin Sodium Potassium Chloride Carbon Dioxide BUN Creatinine Glucose POC Glucose 453 H 470 H Hemoglobin A1c Lactic Acid Calcium Ferritin ALT Lactate Dehydrogenase 978 H C-Reactive Protein 57.20 H NT-Pro-B Natriuret Pep Albumin Salicylates Acetaminophen Crossmatch 05/22/19 05/22/19 05/22/19 04:48 04:48 09:33 WBC 12.0 H RBC 2.47 L Hgb 7.0 L Hct 22.0 L MCH RDW 16.3 H Lymph % (Auto) Lymph # Seg Neutrophils % Seg Neutrophils # D-Dimer ABG pH 7.331 L ABG pO2 62.5 L ABG HCO3 ABG O2 Saturation 90.2 L ABG Base Excess -5.0 L ABG Hemoglobin 6.4 L Oxyhemoglobin 87.8 L Sodium Potassium Chloride Carbon Dioxide 17 L BUN 176 H Creatinine 12.0 H Glucose 493 H POC Glucose Hemoglobin A1c Lactic Acid Calcium Ferritin ALT Lactate Dehydrogenase C-Reactive Protein NT-Pro-B Natriuret Pep Albumin Salicylates Acetaminophen Crossmatch 05/22/19 05/22/19 05/22/19 10:11 12:49 13:16 WBC RBC Hgb Hct MCH RDW Lymph % (Auto) Lymph # Seg Neutrophils % Seg Neutrophils # D-Dimer 3046.75 H ABG pH ABG pO2 ABG HCO3 ABG O2 Saturation ABG Base Excess ABG Hemoglobin Oxyhemoglobin Sodium Potassium Chloride Carbon Dioxide BUN Creatinine Glucose POC Glucose > 500 H Hemoglobin A1c Lactic Acid Calcium Ferritin 2525.0 H ALT Lactate Dehydrogenase C-Reactive Protein NT-Pro-B Natriuret Pep Albumin Salicylates Acetaminophen Crossmatch 05/22/19 05/22/19 05/23/19 17:36 23:51 04:12 WBC RBC Hgb Hct MCH RDW Lymph % (Auto) Lymph # Seg Neutrophils % Seg Neutrophils # D-Dimer ABG pH ABG pO2 54.9 L ABG HCO3 ABG O2 Saturation 93.8 L ABG Base Excess -2.4 L ABG Hemoglobin 5.9 L Oxyhemoglobin 91.5 L Sodium Potassium Chloride Carbon Dioxide BUN Creatinine Glucose POC Glucose > 500 H 302 H Hemoglobin A1c Lactic Acid Calcium Ferritin ALT Lactate Dehydrogenase C-Reactive Protein NT-Pro-B Natriuret Pep Albumin Salicylates Acetaminophen Crossmatch 05/23/19 05/23/19 05/23/19 05:45 13:38 17:07 WBC RBC Hgb Hct MCH RDW Lymph % (Auto) Lymph # Seg Neutrophils % Seg Neutrophils # D-Dimer ABG pH ABG pO2 ABG HCO3 ABG O2 Saturation ABG Base Excess ABG Hemoglobin Oxyhemoglobin Sodium Potassium Chloride Carbon Dioxide BUN Creatinine Glucose POC Glucose 279 H 269 H 205 H Hemoglobin A1c Lactic Acid Calcium Ferritin ALT Lactate Dehydrogenase C-Reactive Protein NT-Pro-B Natriuret Pep Albumin Salicylates Acetaminophen Crossmatch 05/23/19 05/24/19 05/24/19 21:07 00:01 03:55 WBC RBC Hgb Hct MCH RDW Lymph % (Auto) Lymph # Seg Neutrophils % Seg Neutrophils # D-Dimer ABG pH 7.471 H ABG pO2 163.2 H ABG HCO3 ABG O2 Saturation 99.1 H ABG Base Excess ABG Hemoglobin 6.0 L Oxyhemoglobin Sodium Potassium Chloride Carbon Dioxide BUN Creatinine Glucose POC Glucose 274 H 260 H Hemoglobin A1c Lactic Acid Calcium Ferritin ALT Lactate Dehydrogenase C-Reactive Protein NT-Pro-B Natriuret Pep Albumin Salicylates Acetaminophen Crossmatch 05/24/19 05/24/19 05/24/19 05:00 05:00 05:00 WBC RBC Hgb Hct MCH RDW Lymph % (Auto) Lymph # Seg Neutrophils % Seg Neutrophils # D-Dimer 2422.36 H ABG pH ABG pO2 ABG HCO3 ABG O2 Saturation ABG Base Excess ABG Hemoglobin Oxyhemoglobin Sodium Potassium Chloride Carbon Dioxide BUN Creatinine Glucose POC Glucose Hemoglobin A1c Lactic Acid Calcium Ferritin 3849.0 H ALT Lactate Dehydrogenase 904 H C-Reactive Protein 44.40 H NT-Pro-B Natriuret Pep Albumin Salicylates Acetaminophen Crossmatch 05/24/19 05/24/19 05/24/19 05:00 05:00 05:29 WBC 17.2 H RBC 2.16 L Hgb 5.9 L* Hct 18.1 L* MCH 27 L RDW 15.3 H Lymph % (Auto) Lymph # Seg Neutrophils % Seg Neutrophils # D-Dimer ABG pH ABG pO2 ABG HCO3 ABG O2 Saturation ABG Base Excess ABG Hemoglobin Oxyhemoglobin Sodium Potassium 3.5 L D Chloride 93.4 L Carbon Dioxide 21 L BUN 97 H Creatinine 7.9 H Glucose 312 H POC Glucose 339 H Hemoglobin A1c Lactic Acid Calcium Ferritin ALT Lactate Dehydrogenase C-Reactive Protein NT-Pro-B Natriuret Pep Albumin Salicylates Acetaminophen Crossmatch 05/24/19 08:45 WBC RBC Hgb Hct MCH RDW Lymph % (Auto) Lymph # Seg Neutrophils % Seg Neutrophils # D-Dimer ABG pH ABG pO2 ABG HCO3 ABG O2 Saturation ABG Base Excess ABG Hemoglobin Oxyhemoglobin Sodium Potassium Chloride Carbon Dioxide BUN Creatinine Glucose POC Glucose Hemoglobin A1c Lactic Acid Calcium Ferritin ALT Lactate Dehydrogenase C-Reactive Protein NT-Pro-B Natriuret Pep Albumin Salicylates Acetaminophen Crossmatch See Detail Allied health notes reviewed: nursing
--- NOTE | 2019-05-24 14:26 | Progress Note ---
Assessment and Plan Cultures: Blood culture 05/15/2019 no growth to date Sputum culture 05/15/2019 Strep pneumoniae A/P: 63 y/o female with history of ESRD s/p AV graft placement 3 days before admission, admitted on 05/15/2019 for fever and drainage from the left upper extremity graft site as well as cough with whezzing and fever 102: #Severe sepsis: fever resolved; likely due to COVID pneumonia #Severe COVID pneumonia: COVID test positive. Now with Strep pneumoniae in sputum likely bacterial pneumonia on top of COVID. Markers DOWN. CT chest shows bilateral diffuse ground glass opacities. 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/2019 S/p tocilizumab IV x 1 05/23/2019 S/p plaquenil and zinc total 5 days On steroid trial day 2 On therapeutic heparin dose -Ddimer - to change to prophylaxis as Hg dropped today Continue ceftriaxone 2 gm IVq day for Strep pneumoniae pneumonia Day 4 of 7 ContinueCOVID isolationprecautions per [facility] protocol Obtain Ferritin, LDH, D-Dimer, CRP q 48h Discussed with Dr Romeo and Pharm Will follow Lou Bettencourt MD Infectious [facility] ([facility]) M [phone] O [phone] Subjective Date of service: 05/24/19 Principal diagnosis: LOI on CKD Interval history: No fever x 3 days, no pressors, intubated FiO2 40% and p8 PUI?: No COVID19: Positive Objective - Exam Narrative Exam: Constitutional: Intubated, sedated FiO2 40% p8 Head, Ears, Nose:limited due to lack of PPE Oral: Endotracheal tube Cardiovascular: Limited evaluation due to PPE shortage Respiratory: Limited evaluation due to PPE shortage GI: Limited evaluation due to PPE shortage Musculoskeletal: Limited evaluation due to PPE shortage Skin: right arm AVG with edema Neurological: Sedated - Constitutional Vitals: Vital Signs Temp Pulse Resp BP Pulse Ox 98.1 F 77 25 H 135/60 98 05/24/19 13:59 05/24/19 14:00 05/24/19 13:59 05/24/19 14:00 05/24/19 13:59 Temperature -Last 24 Hours Temperature 98.1 F Temperature 98.1 F Temperature 98.1 F Temperature 98.8 F Temperature 98.8 F Temperature 98.9 F Temperature 98.3 F Temperature 99.0 F Temperature 98.6 F - Labs CBC & Chem 7: 05/24/19 05:00 05/24/19 05:00 Labs: Abnormal lab results 05/23/19 05/23/19 05/24/19 Range/Units 17:07 21:07 00:01 WBC (4.5-11.0) K/mm3 RBC (3.65-5.03) M/mm3 Hgb (10.1-14.3) gm/dl Hct (30.3-42.9) % MCH (28-32) pg RDW (13.2-15.2) % D-Dimer (0-234) ng/mlDDU ABG pH (7.350-7.450) pH Units ABG pO2 (80.0-90.0) mm Hg ABG O2 Saturation (95.0-99.0) % ABG Hemoglobin (12.0-16.0) gm/dl Potassium (3.6-5.0) mmol/L Chloride (98-107) mmol/L Carbon Dioxide (22-30) mmol/L BUN (7-17) mg/dL Creatinine (0.7-1.2) mg/dL Glucose (65-100) mg/dL POC Glucose 205 H 274 H 260 H (70-105) Ferritin (13.0-400.0) ng/mL Lactate Dehydrogenase (91-180) units/L C-Reactive Protein (0.00-1.30) mg/dL Crossmatch 05/24/19 05/24/19 05/24/19 Range/Units 03:55 05:00 05:00 WBC (4.5-11.0) K/mm3 RBC (3.65-5.03) M/mm3 Hgb (10.1-14.3) gm/dl Hct (30.3-42.9) % MCH (28-32) pg RDW (13.2-15.2) % D-Dimer 2422.36 H (0-234) ng/mlDDU ABG pH 7.471 H (7.350-7.450) pH Units ABG pO2 163.2 H (80.0-90.0) mm Hg ABG O2 Saturation 99.1 H (95.0-99.0) % ABG Hemoglobin 6.0 L (12.0-16.0) gm/dl Potassium (3.6-5.0) mmol/L Chloride (98-107) mmol/L Carbon Dioxide (22-30) mmol/L BUN (7-17) mg/dL Creatinine (0.7-1.2) mg/dL Glucose (65-100) mg/dL POC Glucose (70-105) Ferritin 3849.0 H (13.0-400.0) ng/mL Lactate Dehydrogenase (91-180) units/L C-Reactive Protein (0.00-1.30) mg/dL Crossmatch 05/24/19 05/24/19 05/24/19 Range/Units 05:00 05:00 05:00 WBC 17.2 H (4.5-11.0) K/mm3 RBC 2.16 L (3.65-5.03) M/mm3 Hgb 5.9 L* (10.1-14.3) gm/dl Hct 18.1 L* (30.3-42.9) % MCH 27 L (28-32) pg RDW 15.3 H (13.2-15.2) % D-Dimer (0-234) ng/mlDDU ABG pH (7.350-7.450) pH Units ABG pO2 (80.0-90.0) mm Hg ABG O2 Saturation (95.0-99.0) % ABG Hemoglobin (12.0-16.0) gm/dl Potassium 3.5 L D (3.6-5.0) mmol/L Chloride 93.4 L (98-107) mmol/L Carbon Dioxide 21 L (22-30) mmol/L BUN 97 H (7-17) mg/dL Creatinine 7.9 H (0.7-1.2) mg/dL Glucose 312 H (65-100) mg/dL POC Glucose (70-105) Ferritin (13.0-400.0) ng/mL Lactate Dehydrogenase 904 H (91-180) units/L C-Reactive Protein 44.40 H (0.00-1.30) mg/dL Crossmatch 05/24/19 05/24/19 05/24/19 Range/Units 05:29 08:45 12:48 WBC (4.5-11.0) K/mm3 RBC (3.65-5.03) M/mm3 Hgb (10.1-14.3) gm/dl Hct (30.3-42.9) % MCH (28-32) pg RDW (13.2-15.2) % D-Dimer (0-234) ng/mlDDU ABG pH (7.350-7.450) pH Units ABG pO2 (80.0-90.0) mm Hg ABG O2 Saturation (95.0-99.0) % ABG Hemoglobin (12.0-16.0) gm/dl Potassium (3.6-5.0) mmol/L Chloride (98-107) mmol/L Carbon Dioxide (22-30) mmol/L BUN (7-17) mg/dL Creatinine (0.7-1.2) mg/dL Glucose (65-100) mg/dL POC Glucose 339 H 270 H (70-105) Ferritin (13.0-400.0) ng/mL Lactate Dehydrogenase (91-180) units/L C-Reactive Protein (0.00-1.30) mg/dL Crossmatch See Detail
[2019-05-24] MEDS: HYDROmorphone 1 MG/1 ML INJ IV PRN (16:52)
[2019-05-24] MEDS: HEPARIN 5,000 UNIT/1 ML VIAL SUB-Q SCH (21:11)
[2019-05-25] MEDS: INSULIN REGULAR, HUMAN 100 UNITS/1 ML SUB-Q SCH ×2 (00:21→06:21)
[2019-05-25] MEDS: INSULIN LISPRO 100 UNIT/ML SUB-Q SCH ×4 (00:22→18:22)
[2019-05-25 04:54] LABS: Hematocrit 29.3 % (30.3-42.9); Hemoglobin 9.8 gm/dl (10.1-14.3); Mean Corpuscular HGB Conc 33 % (30-34); Mean Corpuscular Volume 81 fl (79-97); Platelet Count 231 K/mm3 (140-440); Red Blood Count 3.62 M/mm3 (3.65-5.03); Red Cell Distribution Width 15.1 % (13.2-15.2)
[2019-05-25 05:07] LABS: ABG Base Excess 1.5 mmol/L (-2.0-3.0); ABG HCO3 25.8 mmol/L (20.0-26.0); ABG Methemoglobin 0.5 % (0.0-1.5); ABG Oxygen Saturation 87.6 % (95.0-99.0); ABG PCO2 39.3 mm Hg; ABG PH 7.435 pH Units (7.350-7.450); ABG PO2 52.6 mm Hg (80.0-90.0)
[2019-05-25 05:15] LABS: Albumin 2.9 g/dL (3.9-5)
[2019-05-25] MEDS ORDERED: POTASSIUM CHLORIDE 20 MEQ PACKET FEEDTUBE ONE (06:00)
[2019-05-25] MEDS: METOCLOPRAMIDE 10 MG/2 ML INJ IV SCH ×3 (06:43→21:03)
[2019-05-25] MEDS: cefTRIAXone/NS 2 GM/100 ML 2 GM/100 ML BAG IV SCH (09:20)
[2019-05-25] MEDS: SODIUM BICARBONATE 650 MG TAB PO SCH ×3 (09:20→21:02)
[2019-05-25] MEDS: FAMOTIDINE 20 MG TAB PO SCH (09:20)
[2019-05-25] MEDS: HEPARIN 5,000 UNIT/1 ML VIAL SUB-Q SCH ×2 (09:21→21:07)
[2019-05-25 09:24] LABS: ABG Base Excess 0.3 mmol/L (-2.0-3.0); ABG HCO3 23.9 mmol/L (20.0-26.0); ABG Methemoglobin 0.5 % (0.0-1.5); ABG Oxygen Saturation 89.8 % (95.0-99.0); ABG PCO2 34.4 mm Hg; ABG PH 7.459 pH Units (7.350-7.450); ABG PO2 56.8 mm Hg (80.0-90.0)
--- NOTE | 2019-05-25 09:38 | Progress Note ---
Assessment and Plan Assessment and plan: --Covid-19 confirmed Covid19 paperwork completed by ED F/U ferritin, LDH, D-Dimer and CRP --Acute hypoxic respiratory failure; requiring intubation On ventilatory support, nebulizers Supportive care, pulmonary critical following Wean as tolerated per pulm --Bilateral patchy groundglass opacities/pneumonia Isolation precautions, cultures ID following --Acute metabolic encephalopathy; Present on admission, probably secondary to hypoxemia --Infected AV graft for dialysis; IV antibiotics, vascular,ID following --End-stage renal disease on hemodialysis; HD per schedulen nephrology following --Type 2 diabetes mellitus; moderate control Accu-Chek sliding scale coverage ADA diet and insulin as needed HbA1c 7.7 --Moderate malnutrition/hypoalbuminemia Due to underlying disease process, nutrition supplements Nutrition consult as needed --Lactic acidosis; rule out infections Supportive care --DVT prophylaxis; Lovenox --Obesity BMI 31.6; Patient needs weight reduction when medically stable Anemia Hgb 5.9. Transfuse 2 units PRBC and repeat obtain stool occult blood --Full CODE STATUS; Monitor closely and adjust management as needed Very poor prognosis Plan of care reviewed with the patient's nurse 05/18/2019 Covid-19 confirmed Patient currently with AC mode, rate20, tidal volume 450, FiO2 50% and PEEP 6. Continue hydroxychloroquine 400 mg p.o. twPatient is critically ill with poor prognosis. Wean as tolerated per pulmonarice daily x1 day then 200 mg p.o. x 4 twice daily for 5 days. Continue cefepime per ID. Follow-up inflammatory markers of ferritin, LDH, d-dimer and CRP. 05/19/19 Patient currently with AC mode, rate20, tidal volume 450, FiO2 50% and PEEP 6. Patient is critically ill with poor prognosis. Continue Plaquenil 200 mg p.o. x 4 twice daily for 5 days. Continue cefepime per ID. Follow-up inflammatory markers of ferritin, LDH, d-dimer and CRP. Discussed confirmed positive test with daughter 05/20/2019. Continue Plaquenil taper per ID recommendations. Continue mechanical ventilation with AC mode, rate 14, tidal volume 450 and PEEP 6. Follow-up inflammatory markers of ferritin, LDH, d-dimer and CRP. 05/21/2019. Patient remains critically ill on mechanical ventilation AC mode with rate 14, tidal volume 450, FiO2 40% and PEEP of 6. Patient has strep pneumonia in sputum and likely has bacterial pneumonia exacerbated with COVID-19. Ferritin and LDH elevated but d-dimer decreased. Follow-up repeat chest x-ray. Continue antibiotics per IDceftriaxone. Continue Plaquenil/zinc. Continue CO VID isolation precautions. Follow-up inflammatory markers. Patient with poor prognosis and high risk mortality. 05/22/2019. Patient remains critically ill on mechanical ventilation AC mode with rate 25, tidal volume 450, FiO2 65% and PEEP of 8. Patient has strep pneumonia in sputum and likely has bacterial pneumonia exacerbated with COVID-19. Ferritin and LDH elevated but d-dimer decreased. Follow-up repeat chest x-ray. Continue antibiotics per IDceftriaxone. Continue Plaquenil/zinc. Continue COVID isolation precautions. Follow-up inflammatory markers. Continue hemodialysis per nephrology and evaluate on a daily basis. Patient with poor prognosis and high risk mortality. 05/23/2019 patient with covid-19 infection. She is critically ill, still intubated on vent. 05/24/2019 patient hgb 5.9. Transfuse 2 Units PRBC. I discussed this with Nurse. She is still critically ill, intubated 05/25/2019 patient transfused 2 units PRBC, hgb now 9.8. Off levophed. The high probability of a clinically significant, sudden or life threatening deterioration of the [immunologic and respiratory] system(s) required my full and direct attention, intervention and personal management. The aggregate critical care time was [38] minutes. This time is in addition to time spent performing reported procedures but includes the following: [x] Data Review and interpretation [x] Patient assessment and monitoring of vital signs [x] Documentation [x] Medication orders and management History Interval history: Patient with Covid-19 infection, fever No more fever X 48 hrs PUI?: No COVID19: Positive Hospitalist Physical - Physical exam Narrative exam: GEN: Not in acute distress, obese HEENT: Normocephalic, atraumatic, Neck: supple, No JVD Lungs: Clear to auscultation bilaterally heart;S1 and S2 reg, no murmurs, rubs or gallop Abd:soft, non tender, non distended, normal bowel sounds, Ext: No edema, no clubbing, no cyanosis, Neuro: Intubated - Constitutional Vitals: Temp Pulse Resp BP Pulse Ox 97.7 F 85 25 H 122/66 91 05/25/19 08:00 05/25/19 07:18 05/25/19 06:00 05/25/19 07:18 05/25/19 07:18 General appearance: Present: other (Currently on a ventilator and sedated) Results - Labs CBC & Chem 7: 05/25/19 04:01 05/25/19 04:01 Labs: Laboratory Last Values WBC 14.9 K/mm3 (4.5-11.0) H 05/25/19 04:01 RBC 3.62 M/mm3 (3.65-5.03) L 05/25/19 04:01 Hgb 9.8 gm/dl (10.1-14.3) L D 05/25/19 04:01 Hct 29.3 % (30.3-42.9) L D 05/25/19 04:01 MCV 81 fl (79-97) 05/25/19 04:01 MCH 27 pg (28-32) L 05/25/19 04:01 MCHC 33 % (30-34) 05/25/19 04:01 RDW 15.1 % (13.2-15.2) 05/25/19 04:01 Plt Count 231 K/mm3 (140-440) 05/25/19 04:01 Lymph % (Auto) 6.4 % (13.4-35.0) L 05/17/19 05:43 [place] % (Auto) 4.9 % (0.0-7.3) 05/17/19 05:43 Eos % (Auto) 0.9 % (0.0-4.3) 05/17/19 05:43 Baso % (Auto) 0.3 % (0.0-1.8) 05/17/19 05:43 Lymph # 0.5 K/mm3 (1.2-5.4) L 05/17/19 05:43 [place]aufman # 0.4 K/mm3 (0.0-0.8) 05/17/19 05:43 Eos # 0.1 K/mm3 (0.0-0.4) 05/17/19 05:43 Baso # 0.0 K/mm3 (0.0-0.1) 05/17/19 05:43 Seg Neutrophils % 87.5 % (40.0-70.0) H 05/17/19 05:43 Seg Neutrophils # 7.2 K/mm3 (1.8-7.7) 05/17/19 05:43 D-Dimer 2422.36 ng/mlDDU (0-234) H 05/24/19 05:00 Heparin Anti-Xa Level 0.54 U.I./ml (0.3-0.7) 05/24/19 08:45 ABG pH 7.459 pH Units (7.350-7.450) H 05/25/19 08:33 ABG pCO2 34.4 mm Hg 05/25/19 08:33 ABG pO2 56.8 mm Hg (80.0-90.0) L 05/25/19 08:33 ABG HCO3 23.9 mmol/L (20.0-26.0) 05/25/19 08:33 ABG O2 Saturation 89.8 % (95.0-99.0) L 05/25/19 08:33 ABG O2 Content 11.4 (0.0-44) 05/25/19 08:33 ABG Base Excess 0.3 mmol/L (-2.0-3.0) 05/25/19 08:33 ABG Hemoglobin 9.2 gm/dl (12.0-16.0) L 05/25/19 08:33 ABG Carboxyhemoglobin 1.7 % (0.0-5.0) 05/25/19 08:33 ABG Methemoglobin 0.5 % (0.0-1.5) 05/25/19 08:33 Oxyhemoglobin 87.8 % (95.0-99.0) L 05/25/19 08:33 FiO2 75 % 05/25/19 08:33 Sodium 139 mmol/L (137-145) 05/25/19 04:01 Potassium 2.8 mmol/L (3.6-5.0) L* 05/25/19 04:01 Chloride 96.4 mmol/L (98-107) L 05/25/19 04:01 Carbon Dioxide 24 mmol/L (22-30) 05/25/19 04:01 Anion Gap 21 mmol/L 05/25/19 04:01 BUN 59 mg/dL (7-17) H 05/25/19 04:01 Creatinine 5.2 mg/dL (0.7-1.2) H 05/25/19 04:01 Estimated GFR 10 ml/min 05/25/19 04:01 BUN/Creatinine Ratio 11 % 05/25/19 04:01 Glucose 147 mg/dL (65-100) H 05/25/19 04:01 POC Glucose 127 (70-105) H 05/25/19 05:41 Hemoglobin A1c 7.7 % (4-6) H 05/15/19 Unknown Lactic Acid 1.40 mmol/L (0.7-2.0) 05/15/19 11:41 Calcium 9.0 mg/dL (8.4-10.2) 05/25/19 04:01 Ferritin 3849.0 ng/mL (13.0-400.0) H 05/24/19 05:00 Total Bilirubin 0.30 mg/dL (0.1-1.2) 05/25/19 04:01 AST 128 units/L (5-40) H 05/25/19 04:01 ALT 43 units/L (7-56) 05/25/19 04:01 Alkaline Phosphatase 142 units/L (35-129) H 05/25/19 04:01 Lactate Dehydrogenase 904 units/L (91-180) H 05/24/19 05:00 C-Reactive Protein 44.40 mg/dL (0.00-1.30) H 05/24/19 05:00 NT-Pro-B Natriuret Pep 7240 pg/mL (0-900) H 05/15/19 09:11 Total Protein 7.7 g/dL (6.3-8.2) 05/25/19 04:01 Albumin 2.9 g/dL (3.9-5) L 05/25/19 04:01 Albumin/Globulin Ratio 0.6 % 05/25/19 04:01 Procalcitonin 21.80 ng/mL (<0.15) 05/24/19 05:00 Urine Color Straw (Yellow) 05/15/19 12:07 Urine Turbidity Clear (Clear) 05/15/19 12:07 Urine pH 7.0 (5.0-7.0) 05/15/19 12:07 Ur Specific [place] 1.009 (1.003-1.030) 05/15/19 12:07 Urine Protein 100 mg/dl mg/dL (Negative) 05/15/19 12:07 Urine Glucose (UA) >=500 mg/dL (Negative) 05/15/19 12:07 Urine Ketones Neg mg/dL (Negative) 05/15/19 12:07 Urine Blood Sm (Negative) 05/15/19 12:07 Urine Nitrite Neg (Negative) 05/15/19 12:07 Urine Bilirubin Neg (Negative) 05/15/19 12:07 Urine Urobilinogen < 2.0 mg/dL (<2.0) 05/15/19 12:07 Ur Leukocyte Esterase Neg (Negative) 05/15/19 12:07 Urine WBC (Auto) 3.0 /HPF (0.0-6.0) 05/15/19 12:07 Urine RBC (Auto) 18.0 /HPF (0.0-6.0) 05/15/19 12:07 Urine Mucus Few /HPF 05/15/19 12:07 Random Vancomycin 11.9 ug/mL (0-40.0) 05/17/19 14:57 Salicylates < 0.3 mg/dL (2.8-20.0) L 05/15/19 13:10 Acetaminophen < 5.0 ug/mL (10.0-30.0) L 05/15/19 13:10 Hepatitis A IgM Ab Non-reactive (NonReactive) 05/22/19 10:50 Hep Bs Antigen Non-reactive (Negative) 05/22/19 10:50 Hep B Core IgM Ab Non-reactive (NonReactive) 05/22/19 10:50 Hepatitis C Antibody Non-reactive (NonReactive) 05/22/19 10:50 Miscellaneous Test See scanned result 05/16/19 Unknown Blood Type O POSITIVE 05/24/19 08:45 Antibody Screen Negative 05/24/19 08:45 Crossmatch See Detail 05/24/19 08:45 Microbiology: Microbiology 05/24/19 Unknown Stool Stool Occult Blood (BOOGIE) - Final Castellanos/IV: Voiding Method Indwelling Catheter IV Catheter Type [Right VAS Cath Femoral] IV Catheter Type [Left INT / Saline Lock External Jugular] IV Catheter Type [Right Wrist] INT / Saline Lock IV Catheter Type [Right INT / Saline Lock External Jugular] Active Medications - Current Medications Current Medications: Generic Name Dose Route Start Last Admin Trade Name Freq PRN Reason Stop Dose Admin Acetaminophen 650 mg 05/15/19 23:04 05/21/19 16:17 Tylenol PO 650 mg Q4H PRN Administration Pain MILD(1-3)/Fever >100.5/MELVIN Acetaminophen 650 mg 05/16/19 01:28 05/16/19 01:44 Tylenol NV 650 mg Q6H PRN Administration TEMP > 100.3 Lipase/Protease/Amylase 1 each 05/16/19 11:[address] 10,500 Unit FEEDTUBE PRN PRN For Clogged Feeding Tube Famotidine 20 mg 05/18/19 10:00 05/25/19 09:20 Pepcid PO 20 mg DAILY LUIS M Administration Heparin Sodium (Porcine) 5,000 unit 05/24/19 22:00 05/25/19 09:21 Heparin SUB-Q 5,000 unit Q12HR LUIS M Administration Hydromorphone HCl 0.25 mg 05/15/19 23:04 05/24/19 16:52 Dilaudid IV 0.25 mg Q3H PRN Administration Pain, Moderate (4-6) Hydrophilic Ointment 1 applic 05/15/19 09:48 Vaseline Lip Therapy TP Q2HR PRN Dry Lips Propofol 1,000 mg in 100 mls @ 2.585 mls/hr 05/15/19 11:00 05/17/19 17:51 Diprivan 10 Mg/Ml IV 35 mcg/kg/min TITR LUIS M 18.098 mls/hr Administration Protocol 5 MCG/KG/MIN Ceftriaxone Sodium 2 gm in 100 mls @ 200 mls/hr 05/21/19 11:00 05/25/19 09:20 Rocephin/Ns 2 Gm/100 Ml IV 05/27/19 10:29 200 mls/hr Q24HR LUIS M Administration Protocol Norepinephrine 4 mg in 250 mls @ 18.75 mls/hr 05/21/19 23:45 05/24/19 21:10 Levophed Drip 4 Mg/Ns 250 Ml IV 0 mcg/min TITR LUIS M 0 mls/hr Titration Protocol 5 MCG/MIN Sodium Chloride 100 mls @ 999 mls/hr 05/23/19 08:59 Nacl 0.9% IV COBY PRN Hypotension Insulin Glargine 35 units 05/24/19 22:00 05/24/19 21:11 Lantus SUB-Q 35 units BID LUIS M Administration Insulin Human Lispro 0 unit 05/16/19 00:00 05/25/19 05:49 Humalog SUB-Q Not Given Q6HR [facility] Protocol Insulin Human Regular 12 units 05/24/19 12:00 05/25/19 06:21 Humulin R SUB-Q 12 units Q6HR LUIS M Administration Metoclopramide HCl 5 mg 05/15/19 23:24 Reglan IV Q6H PRN Nausea And Vomiting Multi-Ingred Cream/Lotion/Oil/Oint 1 applic 05/15/19 09:48 Artificial Tears Ophth Oint OU Q4HR PRN Dry Eye(s) Ondansetron HCl 4 mg 05/15/19 23:04 05/19/19 18:30 Zofran IV 4 mg Q8H PRN Administration Nausea And Vomiting Simple Syrup 15 ml 05/16/19 11:14 Simple Syrup FEEDTUBE PRN PRN Hypoglycemia Simple Syrup 30 ml 05/16/19 11:14 Simple Syrup FEEDTUBE PRN PRN Hypoglycemia Sodium Bicarbonate 325 mg 05/16/19 11:14 Sodium Bicarbonate FEEDTUBE PRN PRN For Clogged Feeding Tube Sodium Bicarbonate 650 mg 05/21/19 15:00 05/25/19 09:20 Sodium Bicarbonate PO 650 mg TID LUIS M Administration Sodium Chloride 10 ml 05/16/19 10:00 05/25/19 09:21 Sodium Chloride Flush Syringe 10 Ml IV 10 ml BID LUIS M Administration Sodium Chloride 10 ml 05/15/19 23:04 Sodium Chloride Flush Syringe 10 Ml IV PRN PRN LINE FLUSH Nutrition/Malnutrition Assess - Dietary Evaluation Nutrition/Malnutrition Findings: Nutrition Notes Start: 05/16/19 08:31 Freq: Status: Active Protocol: Document 05/22/19 09:52 LM (Rec: 05/22/19 09:56 LM [id number]) Nutrition Notes Initial or Follow up Reassessment Current Diagnosis CKD (stage V CKD),Diabetes, Hypertension,Respiratory Failure Other Pertinent Diagnosis AV graft infection, fever, COVID-19 positive Current Diet Nepro 1.8 at 45ml/hr Labs/Tests BG 493 Pertinent Medications Humalog Lantus Levophed Zinc Height 5 ft 5 in Weight 82.8 kg Royal Body Weight (kg) 56.81 BMI 30.4 Weight Status Obese Subjective/Other Information Pt tolerating TF at goal rate. 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 Yes Is Patient Ambulatory and/or Out of Bed No REE-([facility]-confined to bed) 4767.361 Calculation Used for Recommendations [facility] Additional Notes Protein: 114g (>/=2g/kg using IBW 57kg) Fluid: per MD Nutrition Intervention Change Diet Order: TF Nutrition Support: Nepro 1.8 at 45ml/hr Flush 200 ml q4h Kcal 1,944 Protein (gm) 87 Fluid (mL) 785 Goal #1 TF tolerance Goal #2 Meet at least 75% of energy and protein needs via TF Anticipated Discharge Needs: unable to determine at this time Follow-Up By: 05/29/19 Additional Comments F/U for TF tolerance
[2019-05-25] MEDS ORDERED: DEXTROSE 50% IN WATER (25GM) 50 ML VIAL IV PRN (12:00)
[2019-05-25] MEDS: HYDROmorphone 1 MG/1 ML INJ IV PRN (12:22)
[2019-05-25] MEDS ORDERED: DEXTROSE 50% IN WATER (25GM) 50 ML SYRINGE IV PRN (13:00)
--- NOTE | 2019-05-25 14:06 | XRay Report ---
CHEST 1 VIEW 05/25/2019 12:34 PM INDICATION / CLINICAL INFORMATION: pneumonia. COMPARISON: One view of the chest from 05/19/2019. FINDINGS: SUPPORT DEVICES: The ET tube has retracted with the tip located 6.7 cm above the carla. The esophago gastric tube is in similar position. HEART / MEDIASTINUM: Stable. LUNGS / PLEURA: Similar bilateral airspace opacities. No significant pleural effusion. No pneumothora x. ADDITIONAL FINDINGS: No significant additional findings. IMPRESSION: 1. Similar bilateral pneumonia. 2. Interval retraction of the ET tube as above. Signer Name: Kimain Long MD Signed: 05/25/2019 2:02 PM Workstation Name: [id number]
--- NOTE | 2019-05-25 14:29 | Progress Note ---
Assessment and Plan - Patient Problems (1) CKD (chronic kidney disease) stage 5, GFR less than 15 ml/min Current Visit: No Status: Acute Plan to address problem: With worsening renal parameters, we initiated HD. Discussed with vascular surgery, and we had vascath placed for initiation as her new AVG has not matured for use at this time. Placed HD orders for 3 consecutive days. s/p 3rd HD session yesterday. Plan for next HD session tomorrow and maintain on MWF HD schedule. (2) Acute encephalopathy Current Visit: Yes Status: Acute Plan to address problem: With worsening renal clearance, concerned that uremic can also be contributing to her metal status along with her severe sepsis in the setting of COVID-19 pneumonia Per nursing staff, she has been more awake and somewhat alert. Will continue to monitor. (3) Acute respiratory failure Current Visit: Yes Status: Acute Qualifiers: Respiratory failure complication: hypoxia Qualified Code(s): J96.01 - Acute respiratory failure with hypoxia Plan to address problem: Management per primary attending/ICU team. (4) Pneumonia due to COVID-19 virus Current Visit: Yes Status: Acute Plan to address problem: Management per ID recommendations. (5) Hypertensive chronic kidney disease with stage 5 chronic kidney disease or end stage renal disease Current Visit: Yes Status: Chronic Plan to address problem: Off all blood pressure medications at this time. Patient was restarted on levophed gtt overnight. Will monitor closely (6) Type 2 diabetes mellitus with diabetic chronic kidney disease Current Visit: Yes Status: Chronic Plan to address problem: DM management per primary attending. (7) Anemia in CKD (chronic kidney disease) Current Visit: Yes Status: Acute Qualifiers: Chronic kidney disease stage: stage 5, not on chronic dialysis Qualified Code(s): N18.5 - Chronic kidney disease, stage 5; D63.1 - Anemia in chronic kidney disease Plan to address problem: Transfusion orders placed by PCP yesterday Transfuse to maintain Hgb> 7.0. Recommend to transfuse while on HD so as to minimize fluid overload. Subjective Date of service: 05/25/19 Principal diagnosis: LOI on CKD Interval history: Tolerated her third session of HD with removal of 1.5L. Labs noted, hypokalemic. Potassium supplementation done earlier this am. PUI?: No COVID19: Positive Objective - Vital Signs Vital signs: Vital Signs - 12hr 05/25/19 05/25/19 05/25/19 02:30 02:46 02:55 Temperature Pulse Rate 82 89 76 Pulse Rate [ 92 H From Monitor] Respiratory 24 16 25 H Rate Respiratory Rate [denies] Blood Pressure 123/60 134/65 O2 Sat by Pulse 92 88 94 Oximetry 05/25/19 05/25/19 05/25/19 03:00 03:16 03:30 Temperature Pulse Rate 83 80 84 Pulse Rate [ From Monitor] Respiratory 26 H 25 H 25 H Rate Respiratory Rate [denies] Blood Pressure 115/63 115/63 115/63 O2 Sat by Pulse 94 97 95 Oximetry 05/25/19 05/25/19 05/25/19 03:46 04:00 04:16 Temperature 98.9 F Pulse Rate 85 88 82 Pulse Rate [ From Monitor] Respiratory 21 20 25 H Rate Respiratory Rate [denies] Blood Pressure 106/64 106/64 134/82 O2 Sat by Pulse 94 91 96 Oximetry 05/25/19 05/25/19 05/25/19 04:30 04:46 05:00 Temperature Pulse Rate 83 86 85 Pulse Rate [ From Monitor] Respiratory 23 20 25 H Rate Respiratory Rate [denies] Blood Pressure 129/79 129/79 123/73 O2 Sat by Pulse 83 L Oximetry 05/25/19 05/25/19 05/25/19 05:16 05:22 05:30 Temperature Pulse Rate 86 85 89 Pulse Rate [ From Monitor] Respiratory 20 25 H Rate Respiratory Rate [denies] Blood Pressure 123/73 123/73 115/82 O2 Sat by Pulse 87 89 82 L Oximetry 05/25/19 05/25/19 05/25/19 05:44 05:46 06:00 Temperature Pulse Rate 76 95 H 85 Pulse Rate [ 92 H From Monitor] Respiratory 25 H 28 H 25 H Rate Respiratory Rate [denies] Blood Pressure 115/82 105/63 O2 Sat by Pulse 94 88 91 Oximetry 05/25/19 05/25/19 05/25/19 06:16 06:30 06:46 Temperature Pulse Rate 85 87 89 Pulse Rate [ From Monitor] Respiratory 25 H 11 L 28 H Rate Respiratory Rate [denies] Blood Pressure 105/63 105/63 134/69 O2 Sat by Pulse 91 91 89 Oximetry 05/25/19 05/25/19 05/25/19 07:00 07:16 07:18 Temperature Pulse Rate 93 H 89 85 Pulse Rate [ From Monitor] Respiratory 25 H 25 H Rate Respiratory Rate [denies] Blood Pressure 122/66 122/66 122/66 O2 Sat by Pulse 91 88 91 Oximetry 05/25/19 05/25/19 05/25/19 07:30 07:46 08:00 Temperature 97.7 F Pulse Rate 97 H 93 H 92 H Pulse Rate [ 90 From Monitor] Respiratory 25 H 28 H 25 H Rate Respiratory Rate [denies] Blood Pressure 122/66 96/47 86/53 O2 Sat by Pulse 88 89 89 Oximetry 05/25/19 05/25/19 05/25/19 08:16 08:30 08:46 Temperature Pulse Rate 94 H 93 H 90 Pulse Rate [ From Monitor] Respiratory 26 H 25 H 25 H Rate Respiratory Rate [denies] Blood Pressure 86/53 83/50 83/50 O2 Sat by Pulse 91 92 93 Oximetry 05/25/19 05/25/19 05/25/19 09:00 09:16 09:30 Temperature Pulse Rate 90 95 H 93 H Pulse Rate [ From Monitor] Respiratory 27 H 29 H 32 H Rate Respiratory Rate [denies] Blood Pressure 85/55 85/55 98/53 O2 Sat by Pulse 93 93 93 Oximetry 05/25/19 05/25/19 05/25/19 09:46 10:00 10:16 Temperature Pulse Rate 102 H 95 H 100 H Pulse Rate [ From Monitor] Respiratory 31 H 30 H 32 H Rate Respiratory 26 H Rate [denies] Blood Pressure 98/53 82/47 98/53 O2 Sat by Pulse 92 92 92 Oximetry 05/25/19 05/25/19 05/25/19 10:30 10:45 11:00 Temperature Pulse Rate 100 H 108 H 103 H Pulse Rate [ From Monitor] Respiratory 34 H 34 H 35 H Rate Respiratory Rate [denies] Blood Pressure 95/49 93/57 110/64 O2 Sat by Pulse 91 93 91 Oximetry 05/25/19 05/25/19 05/25/19 11:10 11:15 11:30 Temperature Pulse Rate 85 103 H 103 H Pulse Rate [ From Monitor] Respiratory 34 H 35 H Rate Respiratory Rate [denies] Blood Pressure 122/66 117/67 123/68 O2 Sat by Pulse 91 94 93 Oximetry 04/0905/25/19 05/25/19 11:45 12:00 12:15 Temperature 98.5 F Pulse Rate 103 H 107 H 103 H Pulse Rate [ 94 H From Monitor] Respiratory 32 H 28 H 33 H Rate Respiratory Rate [denies] Blood Pressure 104/58 104/58 108/55 O2 Sat by Pulse 92 93 93 Oximetry 05/25/19 05/25/19 05/25/19 12:22 12:30 12:45 Temperature Pulse Rate 96 H 103 H Pulse Rate [ From Monitor] Respiratory 33 H 26 H 28 H Rate Respiratory Rate [denies] Blood Pressure 88/42 94/52 O2 Sat by Pulse 93 92 Oximetry 05/25/19 05/25/19 12:52 13:00 Temperature Pulse Rate 103 H Pulse Rate [ From Monitor] Respiratory 25 H 30 H Rate Respiratory Rate [denies] Blood Pressure 106/59 O2 Sat by Pulse 93 Oximetry - General Appearance General appearance: chronically ill, intubated, frail EENT: ATNC Neck: no JVD Respiratory: Present: Decreased Breath Sounds Cardiology: regular, S1S2 Gastrointestinal: normal Integumentary: no rash Musculoskeletal: deferred - Lab 05/25/19 04:01 05/25/19 04:01 Most recent lab results ABG pH 7.459 pH Units (7.350-7.450) H 05/25/19 08:33 ABG pCO2 34.4 mm Hg 05/25/19 08:33 ABG pO2 56.8 mm Hg (80.0-90.0) L 05/25/19 08:33 ABG HCO3 23.9 mmol/L (20.0-26.0) 05/25/19 08:33 ABG O2 Saturation 89.8 % (95.0-99.0) L 05/25/19 08:33 Calcium 9.0 mg/dL (8.4-10.2) 05/25/19 04:01 - Allied health notes Allied health notes reviewed: nursing Medications & Allergies - Medications Allergies/Adverse Reactions: Allergies No Known Allergies Allergy (Unverified 05/10/19 15:33) Home Medications: Home Medications Medication Instructions Recorded Confirmed Last Taken Type Aspirin [Adult Aspirin] 81 mg PO DAILY 05/10/19 05/20/19 05/11/19 History Cyanocobalamin (Vitamin B-12) 2,500 mcg PO DAILY 05/10/19 05/20/19 05/11/19 History [Vitamin B12] Ferrous Sulfate [Feosol 325 MG tab] 325 mg PO DAILY 05/10/19 05/20/19 05/11/19 History Gabapentin 100 mg PO TID 05/10/19 05/20/19 05/11/19 History Insulin Aspart (Nf) [NovoLOG 100 10 unit SQ TIDAC 05/10/19 05/20/19 05/11/19 History UNITS/ML VIAL] Insulin Glargine [Lantus VIAL] 36 unit SQ QAM 05/10/19 05/20/19 05/11/19 History Tizanidine HCl [Tizanidine 2mg tab] 2 mg PO DAILY 05/10/19 05/20/19 05/11/19 History Torsemide [Demadex] 20 mg PO BID 05/10/19 05/20/19 05/11/19 History amLODIPine 10 mg PO BID 05/10/19 05/20/19 05/12/19 04:30 History calcitrioL [Rocaltrol] 0.5 mcg PO DAILY 05/10/19 05/20/19 05/11/19 History carvediloL [Coreg] 12.5 mg PO BID 05/10/19 05/20/19 05/12/19 04:30 History oxyCODONE /ACETAMINOPHEN [Percocet 1 tab PO Q6HR PRN #24 tablet 05/12/19 05/20/19 Unknown Rx 5/325 mg] Active Medications: Generic Name Dose Route Start Last Admin Trade Name Freq PRN Reason Stop Dose Admin Acetaminophen 650 mg 05/15/19 23:04 05/21/19 16:17 Tylenol PO 650 mg Q4H PRN Administration Pain MILD(1-3)/Fever >100.5/MELVIN Acetaminophen 650 mg 05/16/19 01:28 05/16/19 01:[address] 650 mg Q6H PRN Administration TEMP > 100.3 Lipase/Protease/Amylase 1 each 05/16/19 11:14 Pancreaze 10,500 Unit FEEDTUBE PRN PRN For Clogged Feeding Tube Dextrose 25 ml 05/25/19 13:00 05/25/19 12:20 D50w (25gm) Syringe IV 25 ml Q30MIN PRN Administration BLOOD GLUCOSE </=80 Famotidine 20 mg 05/18/19 10:00 05/25/19 09:20 Pepcid PO 20 mg DAILY LUIS M Administration Heparin Sodium (Porcine) 5,000 unit 05/24/19 22:00 05/25/19 09:21 Heparin SUB-Q 5,000 unit Q12HR LUIS M Administration Hydromorphone HCl 0.25 mg 05/15/19 23:04 05/25/19 12:22 Dilaudid IV 0.25 mg Q3H PRN Administration Pain, Moderate (4-6) Hydrophilic Ointment 1 applic 05/15/19 09:48 Vaseline Lip Therapy TP Q2HR PRN Dry Lips Propofol 1,000 mg in 100 mls @ 2.585 mls/hr 05/15/19 11:00 05/25/19 13:18 Diprivan 10 Mg/Ml IV 5 mcg/kg/min TITR LUIS M 2.585 mls/hr Administration Protocol 5 MCG/KG/MIN Ceftriaxone Sodium 2 gm in 100 mls @ 200 mls/hr 05/21/19 11:00 05/25/19 09:20 Rocephin/Ns 2 Gm/100 Ml IV 05/27/19 10:29 200 mls/hr Q24HR [facility] Administration Protocol Norepinephrine 4 mg in 250 mls @ 18.75 mls/hr 05/21/19 23:45 05/25/19 12:30 Levophed Drip 4 Mg/Ns 250 Ml IV 4 mcg/min TITR LUIS M 15 mls/hr Titration Protocol 5 MCG/MIN Sodium Chloride 100 mls @ 999 mls/hr 05/23/19 08:59 Nacl 0.9% IV COBY PRN Hypotension Insulin Human Lispro 0 unit 05/16/19 00:00 05/25/19 12:19 Humalog SUB-Q Not Given Q6HR [facility] Protocol Metoclopramide HCl 5 mg 05/15/19 23:24 Reglan IV Q6H PRN Nausea And Vomiting Metoclopramide HCl 5 mg 05/25/19 14:00 05/25/19 13:38 Reglan IV 5 mg Q8HR LUIS M Administration Multi-Ingred Cream/Lotion/Oil/Oint 1 applic 05/15/19 09:48 Artificial Tears Ophth Oint OU Q4HR PRN Dry Eye(s) Ondansetron HCl 4 mg 05/15/19 23:04 05/19/19 18:30 Zofran IV 4 mg Q8H PRN Administration Nausea And Vomiting Simple Syrup 15 ml 05/16/19 11:14 Simple Syrup FEEDTUBE PRN PRN Hypoglycemia Simple Syrup 30 ml 05/16/19 11:14 Simple Syrup FEEDTUBE PRN PRN Hypoglycemia Sodium Bicarbonate 325 mg 05/16/19 11:14 Sodium Bicarbonate FEEDTUBE PRN PRN For Clogged Feeding Tube Sodium Bicarbonate 650 mg 05/21/19 15:00 05/25/19 13:19 Sodium Bicarbonate PO 650 mg TID LUIS M Administration Sodium Chloride 10 ml 05/16/19 10:00 05/25/19 09:21 Sodium Chloride Flush Syringe 10 Ml IV 10 ml BID LUIS M Administration Sodium Chloride 10 ml 05/15/19 23:04 Sodium Chloride Flush Syringe 10 Ml IV PRN PRN LINE FLUSH
--- NOTE | 2019-05-25 15:04 | Progress Note ---
Assessment and Plan Acute hypoxemic respiratory failure, on mechanical ventilatory support. Bilateral pneumonia vs pulmonary edema. Bilateral pleural effusions. Severe Sepsis COVID-19 infection. End-stage renal disease, on dialysis. Acute toxic metabolic encephalopathy. Diabetes type 2. History of congestive heart failure. History of hypertension. Oropharyngeal dysphagia. Gastroesophageal reflux disease. Obesity - Advance ETT 2 cm - resume sedation with fentanyl re: agitation - wean vasopressors for target MAP > 65 mmHg - begin scheduled reglan 10 mg IV q8h to promote GI motility - continue airborne, droplet and contact precautions - follow serum inflammation markers - Conservative fluid management (use vasopressors including midodrine to support blood pressure). - ABG, CXR per protocol - VAP bundle addressed (continue aspiration precautions) - continue to wean supplemental oxygen to keep O2 sats > 90% - continue daily SAT's and SBT assessment - continue Bronchodilators (SHASHANK) with pulm hygiene per RT - sedation target for RASS 0 to -1 - Accuchecks with glycemic control, keep blood glucose 140-180 mg/dL while critically ill (Avoid hypoglycemia) - continue HD/UF for toxin and volume control - Avoid nephrotoxins, adjust and dose all medications fro GFR and CrCL - continue GI & VTE prophylaxis - other COVID-19 precautions per [facility] protocol - enteral nutrition at goal rate as tolerated - prn analgesia per CPOT score - mobility protocols to prevent pressure ulcers - GI & VTE prophylaxis - Flu & pneumovax per protocol - continue other care per attending / other consultants ... re-evaluate in am & prn CONDITION: CRITICAL PROGNOSIS: GUARDED CODE STATUS: FULL CODE The high probability of a clinically significant, sudden or life threatening deterioration of the [pulmonary, renal & neurologic] system(s) required my full and direct attention, intervention and personal management. The aggregate critical care time was [34] minutes. This time is in addition to time spent performing reported procedures but includes the following: [x] Data Review and interpretation [x] Patient assessment and monitoring of vital signs [x] Documentation [x] Medication orders and management Subjective Date of service: 05/25/19 Principal diagnosis: Ac hypoxemic resp failure; [place]em pneumonia; Sepsis; COVID-19 infection; ESRD Interval history: Patient is seen today for: Acute hypoxemic respiratory failure; Bilateral pneumonia vs pulmonary edema; Bilateral pleural effusions; Sepsis; Possible COVID-19 infection; End-stage renal disease, on dialysis; Acute toxic metabolic encephalopathy. Seen and examined at bedside; 24hour events reviewed; nursing and respiratory care staff consulted; no adverse overnight events reported to me; resting peacefully in bed; remains on MVS; oxygen requirements increased overnight and now on 75% FiO2; denies acute pain but work of breathing is increased; looks anxious; + emesis yesterday per RN PUI?: Yes COVID19: Pending Objective Vital Signs - 12hr 05/25/19 05/25/19 05/25/19 03:00 03:16 03:30 Temperature Pulse Rate 83 80 84 Pulse Rate [ From Monitor] Respiratory 26 H 25 H 25 H Rate Respiratory Rate [denies] Blood Pressure 115/63 115/63 115/63 O2 Sat by Pulse 94 97 95 Oximetry 05/25/19 05/25/19 05/25/19 03:46 04:00 04:16 Temperature 98.9 F Pulse Rate 85 88 82 Pulse Rate [ From Monitor] Respiratory 21 20 25 H Rate Respiratory Rate [denies] Blood Pressure 106/64 106/64 134/82 O2 Sat by Pulse 94 91 96 Oximetry 05/25/19 05/25/19 05/25/19 04:30 04:46 05:00 Temperature Pulse Rate 83 86 85 Pulse Rate [ From Monitor] Respiratory 23 20 25 H Rate Respiratory Rate [denies] Blood Pressure 129/79 129/79 123/73 O2 Sat by Pulse 83 L Oximetry 05/25/19 05/25/19 05/25/19 05:16 05:22 05:30 Temperature Pulse Rate 86 85 89 Pulse Rate [ From Monitor] Respiratory 20 25 H Rate Respiratory Rate [denies] Blood Pressure 123/73 123/73 115/82 O2 Sat by Pulse 87 89 82 L Oximetry 05/25/19 05/25/19 05/25/19 05:44 05:46 06:00 Temperature Pulse Rate 76 95 H 85 Pulse Rate [ 92 H From Monitor] Respiratory 25 H 28 H 25 H Rate Respiratory Rate [denies] Blood Pressure 115/82 105/63 O2 Sat by Pulse 94 88 91 Oximetry 05/25/19 05/25/19 05/25/19 06:16 06:30 06:46 Temperature Pulse Rate 85 87 89 Pulse Rate [ From Monitor] Respiratory 25 H 11 L 28 H Rate Respiratory Rate [denies] Blood Pressure 105/63 105/63 134/69 O2 Sat by Pulse 91 91 89 Oximetry 05/25/19 05/25/19 05/25/19 07:00 07:16 07:18 Temperature Pulse Rate 93 H 89 85 Pulse Rate [ From Monitor] Respiratory 25 H 25 H Rate Respiratory Rate [denies] Blood Pressure 122/66 122/66 122/66 O2 Sat by Pulse 91 88 91 Oximetry 05/25/19 05/25/19 05/25/19 07:30 07:46 08:00 Temperature 97.7 F Pulse Rate 97 H 93 H 90 Pulse Rate [ 90 From Monitor] Respiratory 25 H 28 H 25 H Rate Respiratory Rate [denies] Blood Pressure 122/66 96/47 86/53 O2 Sat by Pulse 88 89 89 Oximetry 05/25/19 05/25/19 05/25/19 08:16 08:30 08:46 Temperature Pulse Rate 94 H 93 H 90 Pulse Rate [ From Monitor] Respiratory 26 H 25 H 25 H Rate Respiratory Rate [denies] Blood Pressure 86/53 83/50 83/50 O2 Sat by Pulse 91 92 93 Oximetry 05/25/19 05/25/19 05/25/19 09:00 09:16 09:30 Temperature Pulse Rate 90 95 H 93 H Pulse Rate [ From Monitor] Respiratory 27 H 29 H 32 H Rate Respiratory Rate [denies] Blood Pressure 85/55 85/55 98/53 O2 Sat by Pulse 93 93 93 Oximetry 05/25/19 05/25/19 05/25/19 09:46 10:00 10:16 Temperature Pulse Rate 102 H 95 H 100 H Pulse Rate [ From Monitor] Respiratory 31 H 30 H 32 H Rate Respiratory 26 H Rate [denies] Blood Pressure 98/53 82/47 98/53 O2 Sat by Pulse 92 92 92 Oximetry 05/25/19 05/25/19 05/25/19 10:30 10:45 11:00 Temperature Pulse Rate 100 H 108 H 103 H Pulse Rate [ From Monitor] Respiratory 34 H 34 H 35 H Rate Respiratory Rate [denies] Blood Pressure 95/49 93/57 110/64 O2 Sat by Pulse 91 93 91 Oximetry 05/25/19 05/25/19 05/25/19 11:10 11:15 11:30 Temperature Pulse Rate 85 103 H 103 H Pulse Rate [ From Monitor] Respiratory 34 H 35 H Rate Respiratory Rate [denies] Blood Pressure 122/66 117/67 123/68 O2 Sat by Pulse 91 94 93 Oximetry 05/25/19 05/25/19 05/25/19 11:45 12:00 12:15 Temperature 98.5 F Pulse Rate 103 H 103 H 103 H Pulse Rate [ 94 H From Monitor] Respiratory 32 H 28 H 33 H Rate Respiratory Rate [denies] Blood Pressure 104/58 104/58 108/55 O2 Sat by Pulse 92 93 93 Oximetry 05/25/19 05/25/19 05/25/19 12:22 12:30 12:45 Temperature Pulse Rate 96 H 103 H Pulse Rate [ From Monitor] Respiratory 33 H 26 H 28 H Rate Respiratory Rate [denies] Blood Pressure 88/42 94/52 O2 Sat by Pulse 93 92 Oximetry 05/25/19 05/25/19 05/25/19 12:52 13:00 13:15 Temperature Pulse Rate 103 H 113 H Pulse Rate [ From Monitor] Respiratory 25 H 30 H 31 H Rate Respiratory Rate [denies] Blood Pressure 106/59 110/56 O2 Sat by Pulse 93 92 Oximetry 05/25/19 05/25/19 05/25/19 13:30 13:45 14:00 Temperature Pulse Rate 103 H 101 H 106 H Pulse Rate [ From Monitor] Respiratory 29 H 29 H 29 H Rate Respiratory Rate [denies] Blood Pressure 99/54 106/61 106/61 O2 Sat by Pulse 92 90 93 Oximetry 05/25/19 05/25/19 14:15 14:30 Temperature Pulse Rate 108 H 103 H Pulse Rate [ From Monitor] Respiratory 36 H 29 H Rate Respiratory Rate [denies] Blood Pressure 144/77 111/65 O2 Sat by Pulse 94 92 Oximetry Constitutional: appears uncomfortable, other (elderly looking obese AAF, normocephalic with no mildly increased work of breathing) Eyes: non-icteric ENT: oropharynx moist, other (ETT 24 cm KARLA) Neck: supple, no lymphadenopathy Effort: mildly labored Ascultation: Bilateral: diminished breath sounds, rhonchi Percussion: Bilateral: not dull Cardiovascular: regular rate and rhythm Gastrointestinal: normoactive bowel sounds, soft, non-tender, non-distended Integumentary: rash Extremities: no cyanosis, no edema, pulses normal, no ischemia or petechiae Neurologic: normal mental status, non-focal exam (grossly), pupils equal and round Psychiatric: anxious CBC and BMP: 05/25/19 04:01 05/25/19 04:01 ABG, PT/INR, D-dimer: ABG ABG pH 7.459 pH Units (7.350-7.450) H 05/25/19 08:33 ABG pCO2 34.4 mm Hg 05/25/19 08:33 ABG pO2 56.8 mm Hg (80.0-90.0) L 05/25/19 08:33 ABG O2 Saturation 89.8 % (95.0-99.0) L 05/25/19 08:33 PT/INR, D-dimer D-Dimer 2422.36 ng/mlDDU (0-234) H 05/24/19 05:00 Abnormal lab findings: Abnormal Labs 05/15/19 05/15/19 05/15/19 08:07 08:31 09:11 WBC 11.9 H RBC 3.41 L Hgb 9.3 L Hct 30.1 L MCH 27 L RDW Lymph % (Auto) Lymph # Seg Neutrophils % Seg Neutrophils # D-Dimer ABG pH ABG pO2 ABG HCO3 ABG O2 Saturation ABG Base Excess ABG Hemoglobin Oxyhemoglobin Sodium 136 L Potassium Chloride Carbon Dioxide 15 L D BUN 74 H Creatinine 5.8 H Glucose 267 H POC Glucose 344 H Hemoglobin A1c Lactic Acid Calcium Ferritin AST ALT < 5 L Alkaline Phosphatase Lactate Dehydrogenase C-Reactive Protein NT-Pro-B Natriuret Pep Albumin 3.2 L Salicylates Acetaminophen Crossmatch 05/15/19 05/15/19 05/15/19 09:11 09:11 09:30 WBC RBC Hgb Hct MCH RDW Lymph % (Auto) Lymph # Seg Neutrophils % Seg Neutrophils # D-Dimer ABG pH ABG pO2 ABG HCO3 ABG O2 Saturation ABG Base Excess -2.8 L ABG Hemoglobin 8.2 L Oxyhemoglobin 94.6 L Sodium Potassium Chloride Carbon Dioxide BUN Creatinine Glucose POC Glucose Hemoglobin A1c Lactic Acid 3.50 H* Calcium Ferritin AST ALT Alkaline Phosphatase Lactate Dehydrogenase C-Reactive Protein NT-Pro-B Natriuret Pep 7240 H Albumin Salicylates Acetaminophen Crossmatch 05/15/19 05/15/19 05/15/19 13:10 13:10 Unknown WBC RBC Hgb Hct MCH RDW Lymph % (Auto) Lymph # Seg Neutrophils % Seg Neutrophils # D-Dimer ABG pH ABG pO2 ABG HCO3 ABG O2 Saturation ABG Base Excess ABG Hemoglobin Oxyhemoglobin Sodium Potassium Chloride Carbon Dioxide BUN Creatinine Glucose POC Glucose Hemoglobin A1c 7.7 H Lactic Acid Calcium Ferritin AST ALT Alkaline Phosphatase Lactate Dehydrogenase C-Reactive Protein NT-Pro-B Natriuret Pep Albumin Salicylates < 0.3 L Acetaminophen < 5.0 L Crossmatch 05/16/19 05/16/19 05/16/19 03:44 03:58 13:08 WBC 12.9 H RBC Hgb Hct MCH RDW Lymph % (Auto) 7.1 L Lymph # 0.9 L Seg Neutrophils % 87.7 H Seg Neutrophils # 11.3 H D-Dimer ABG pH ABG pO2 213.3 H ABG HCO3 ABG O2 Saturation 99.3 H ABG Base Excess ABG Hemoglobin 7.5 L Oxyhemoglobin Sodium Potassium Chloride Carbon Dioxide BUN Creatinine Glucose POC Glucose 231 H Hemoglobin A1c Lactic Acid Calcium Ferritin AST ALT Alkaline Phosphatase Lactate Dehydrogenase C-Reactive Protein NT-Pro-B Natriuret Pep Albumin Salicylates Acetaminophen Crossmatch 05/16/19 05/16/19 05/17/19 18:28 23:34 05:02 WBC RBC Hgb Hct MCH RDW Lymph % (Auto) Lymph # Seg Neutrophils % Seg Neutrophils # D-Dimer ABG pH ABG pO2 91.9 H ABG HCO3 ABG O2 Saturation ABG Base Excess -3.6 L ABG Hemoglobin 7.2 L Oxyhemoglobin Sodium Potassium Chloride Carbon Dioxide BUN Creatinine Glucose POC Glucose 181 H 177 H Hemoglobin A1c Lactic Acid Calcium Ferritin AST ALT Alkaline Phosphatase Lactate Dehydrogenase C-Reactive Protein NT-Pro-B Natriuret Pep Albumin Salicylates Acetaminophen Crossmatch 05/17/19 05/17/19 05/17/19 05:43 05:43 15:15 WBC RBC 3.06 L Hgb 8.6 L Hct 26.1 L D MCH RDW Lymph % (Auto) 6.4 L Lymph # 0.5 L Seg Neutrophils % 87.5 H Seg Neutrophils # D-Dimer ABG pH ABG pO2 ABG HCO3 ABG O2 Saturation ABG Base Excess ABG Hemoglobin Oxyhemoglobin Sodium Potassium Chloride Carbon Dioxide 17 L BUN 76 H Creatinine 5.4 H Glucose 231 H POC Glucose 302 H Hemoglobin A1c Lactic Acid Calcium Ferritin AST ALT Alkaline Phosphatase Lactate Dehydrogenase C-Reactive Protein NT-Pro-B Natriuret Pep Albumin Salicylates Acetaminophen Crossmatch 05/17/19 05/18/19 05/18/19 18:44 00:04 05:35 WBC RBC Hgb Hct MCH RDW Lymph % (Auto) Lymph # Seg Neutrophils % Seg Neutrophils # D-Dimer ABG pH ABG pO2 ABG HCO3 ABG O2 Saturation ABG Base Excess ABG Hemoglobin Oxyhemoglobin Sodium Potassium Chloride Carbon Dioxide BUN Creatinine Glucose POC Glucose 258 H 331 H 329 H Hemoglobin A1c Lactic Acid Calcium Ferritin AST ALT Alkaline Phosphatase Lactate Dehydrogenase C-Reactive Protein NT-Pro-B Natriuret Pep Albumin Salicylates Acetaminophen Crossmatch 05/18/19 05/18/19 05/18/19 11:15 11:15 11:15 WBC RBC Hgb Hct MCH RDW Lymph % (Auto) Lymph # Seg Neutrophils % Seg Neutrophils # D-Dimer 5072.66 H ABG pH ABG pO2 ABG HCO3 ABG O2 Saturation ABG Base Excess ABG Hemoglobin Oxyhemoglobin Sodium 146 H Potassium Chloride Carbon Dioxide 18 L BUN 99 H Creatinine 6.1 H Glucose 346 H POC Glucose Hemoglobin A1c Lactic Acid Calcium Ferritin 975.6 H AST ALT < 5 L Alkaline Phosphatase Lactate Dehydrogenase C-Reactive Protein NT-Pro-B Natriuret Pep Albumin 3.0 L Salicylates Acetaminophen Crossmatch 05/18/19 05/18/19 05/18/19 11:15 11:55 18:11 WBC RBC Hgb Hct MCH RDW Lymph % (Auto) Lymph # Seg Neutrophils % Seg Neutrophils # D-Dimer ABG pH ABG pO2 ABG HCO3 ABG O2 Saturation ABG Base Excess ABG Hemoglobin Oxyhemoglobin Sodium Potassium Chloride Carbon Dioxide BUN Creatinine Glucose POC Glucose 334 H 397 H Hemoglobin A1c Lactic Acid Calcium Ferritin AST ALT Alkaline Phosphatase Lactate Dehydrogenase 483 H C-Reactive Protein 38.00 H NT-Pro-B Natriuret Pep Albumin Salicylates Acetaminophen Crossmatch 05/18/19 05/19/19 05/19/19 Unknown 00:30 05:07 WBC RBC Hgb Hct MCH RDW Lymph % (Auto) Lymph # Seg Neutrophils % Seg Neutrophils # D-Dimer ABG pH ABG pO2 133.0 H 61.1 L ABG HCO3 ABG O2 Saturation 94.4 L ABG Base Excess -2.9 L -2.7 L ABG Hemoglobin 8.3 L 8.0 L Oxyhemoglobin 92.2 L Sodium Potassium Chloride Carbon Dioxide BUN Creatinine Glucose POC Glucose 321 H Hemoglobin A1c Lactic Acid Calcium Ferritin AST ALT Alkaline Phosphatase Lactate Dehydrogenase C-Reactive Protein NT-Pro-B Natriuret Pep Albumin Salicylates Acetaminophen Crossmatch 05/19/19 05/19/19 05/19/19 05:17 12:23 15:02 WBC RBC Hgb Hct MCH RDW Lymph % (Auto) Lymph # Seg Neutrophils % Seg Neutrophils # D-Dimer ABG pH ABG pO2 ABG HCO3 ABG O2 Saturation ABG Base Excess ABG Hemoglobin Oxyhemoglobin Sodium 147 H Potassium Chloride 108.2 H Carbon Dioxide 16 L BUN 119 H Creatinine 8.5 H Glucose 315 H POC Glucose 235 H 298 H Hemoglobin A1c Lactic Acid Calcium 8.3 L Ferritin AST ALT Alkaline Phosphatase Lactate Dehydrogenase C-Reactive Protein NT-Pro-B Natriuret Pep Albumin Salicylates Acetaminophen Crossmatch 05/19/19 05/20/19 05/20/19 17:42 00:11 04:17 WBC RBC Hgb Hct MCH RDW Lymph % (Auto) Lymph # Seg Neutrophils % Seg Neutrophils # D-Dimer ABG pH 7.322 L ABG pO2 58.5 L ABG HCO3 18.9 L ABG O2 Saturation 91.0 L ABG Base Excess -6.5 L ABG Hemoglobin 7.0 L Oxyhemoglobin 88.2 L Sodium Potassium Chloride Carbon Dioxide BUN Creatinine Glucose POC Glucose 310 H 277 H Hemoglobin A1c Lactic Acid Calcium Ferritin AST ALT Alkaline Phosphatase Lactate Dehydrogenase C-Reactive Protein NT-Pro-B Natriuret Pep Albumin Salicylates Acetaminophen Crossmatch 05/20/19 05/20/19 05/20/19 05:29 09:06 09:06 WBC RBC Hgb Hct MCH RDW Lymph % (Auto) Lymph # Seg Neutrophils % Seg Neutrophils # D-Dimer 3193.32 H ABG pH ABG pO2 ABG HCO3 ABG O2 Saturation ABG Base Excess ABG Hemoglobin Oxyhemoglobin Sodium Potassium Chloride Carbon Dioxide BUN Creatinine Glucose POC Glucose 332 H Hemoglobin A1c Lactic Acid Calcium Ferritin 1802.0 H AST ALT Alkaline Phosphatase Lactate Dehydrogenase C-Reactive Protein NT-Pro-B Natriuret Pep Albumin Salicylates Acetaminophen Crossmatch 05/20/19 05/20/19 05/20/19 09:06 12:31 18:18 WBC RBC Hgb Hct MCH RDW Lymph % (Auto) Lymph # Seg Neutrophils % Seg Neutrophils # D-Dimer ABG pH ABG pO2 ABG HCO3 ABG O2 Saturation ABG Base Excess ABG Hemoglobin Oxyhemoglobin Sodium Potassium Chloride Carbon Dioxide BUN Creatinine Glucose POC Glucose 284 H 355 H Hemoglobin A1c Lactic Acid Calcium Ferritin AST ALT Alkaline Phosphatase Lactate Dehydrogenase 646 H C-Reactive Protein 56.30 H NT-Pro-B Natriuret Pep Albumin Salicylates Acetaminophen Crossmatch 05/20/19 05/21/19 05/21/19 23:43 05:04 05:05 WBC RBC Hgb Hct MCH RDW Lymph % (Auto) Lymph # Seg Neutrophils % Seg Neutrophils # D-Dimer ABG pH ABG pO2 54.1 L ABG HCO3 ABG O2 Saturation 88.4 L ABG Base Excess -4.0 L ABG Hemoglobin 6.9 L Oxyhemoglobin 85.5 L Sodium Potassium Chloride Carbon Dioxide BUN Creatinine Glucose POC Glucose 394 H 394 H Hemoglobin A1c Lactic Acid Calcium Ferritin AST ALT Alkaline Phosphatase Lactate Dehydrogenase C-Reactive Protein NT-Pro-B Natriuret Pep Albumin Salicylates Acetaminophen Crossmatch 05/21/19 05/21/19 05/21/19 12:14 17:41 23:25 WBC RBC Hgb Hct MCH RDW Lymph % (Auto) Lymph # Seg Neutrophils % Seg Neutrophils # D-Dimer ABG pH 7.281 L ABG pO2 61.2 L ABG HCO3 ABG O2 Saturation 91.6 L ABG Base Excess -4.8 L ABG Hemoglobin 6.2 L Oxyhemoglobin 88.9 L Sodium Potassium Chloride Carbon Dioxide BUN Creatinine Glucose POC Glucose 457 H 427 H Hemoglobin A1c Lactic Acid Calcium Ferritin AST ALT Alkaline Phosphatase Lactate Dehydrogenase C-Reactive Protein NT-Pro-B Natriuret Pep Albumin Salicylates Acetaminophen Crossmatch 05/21/19 05/22/19 05/22/19 23:45 04:35 04:48 WBC RBC Hgb Hct MCH RDW Lymph % (Auto) Lymph # Seg Neutrophils % Seg Neutrophils # D-Dimer ABG pH ABG pO2 ABG HCO3 ABG O2 Saturation ABG Base Excess ABG Hemoglobin Oxyhemoglobin Sodium Potassium Chloride Carbon Dioxide BUN Creatinine Glucose POC Glucose 453 H 470 H Hemoglobin A1c Lactic Acid Calcium Ferritin AST ALT Alkaline Phosphatase Lactate Dehydrogenase 978 H C-Reactive Protein 57.20 H NT-Pro-B Natriuret Pep Albumin Salicylates Acetaminophen Crossmatch 05/22/19 05/22/19 05/22/19 04:48 04:48 09:33 WBC 12.0 H RBC 2.47 L Hgb 7.0 L Hct 22.0 L MCH RDW 16.3 H Lymph % (Auto) Lymph # Seg Neutrophils % Seg Neutrophils # D-Dimer ABG pH 7.331 L ABG pO2 62.5 L ABG HCO3 ABG O2 Saturation 90.2 L ABG Base Excess -5.0 L ABG Hemoglobin 6.4 L Oxyhemoglobin 87.8 L Sodium Potassium Chloride Carbon Dioxide 17 L BUN 176 H Creatinine 12.0 H Glucose 493 H POC Glucose Hemoglobin A1c Lactic Acid Calcium Ferritin AST ALT Alkaline Phosphatase Lactate Dehydrogenase C-Reactive Protein NT-Pro-B Natriuret Pep Albumin Salicylates Acetaminophen Crossmatch 05/22/19 05/22/19 05/22/19 10:11 12:49 13:16 WBC RBC Hgb Hct MCH RDW Lymph % (Auto) Lymph # Seg Neutrophils % Seg Neutrophils # D-Dimer 3046.75 H ABG pH ABG pO2 ABG HCO3 ABG O2 Saturation ABG Base Excess ABG Hemoglobin Oxyhemoglobin Sodium Potassium Chloride Carbon Dioxide BUN Creatinine Glucose POC Glucose > 500 H Hemoglobin A1c Lactic Acid Calcium Ferritin 2525.0 H AST ALT Alkaline Phosphatase Lactate Dehydrogenase C-Reactive Protein NT-Pro-B Natriuret Pep Albumin Salicylates Acetaminophen Crossmatch 05/22/19 05/22/19 05/23/19 17:36 23:51 04:12 WBC RBC Hgb Hct MCH RDW Lymph % (Auto) Lymph # Seg Neutrophils % Seg Neutrophils # D-Dimer ABG pH ABG pO2 54.9 L ABG HCO3 ABG O2 Saturation 93.8 L ABG Base Excess -2.4 L ABG Hemoglobin 5.9 L Oxyhemoglobin 91.5 L Sodium Potassium Chloride Carbon Dioxide BUN Creatinine Glucose POC Glucose > 500 H 302 H Hemoglobin A1c Lactic Acid Calcium Ferritin AST ALT Alkaline Phosphatase Lactate Dehydrogenase C-Reactive Protein NT-Pro-B Natriuret Pep Albumin Salicylates Acetaminophen Crossmatch 05/23/19 05/23/19 05/23/19 05:45 13:38 17:07 WBC RBC Hgb Hct MCH RDW Lymph % (Auto) Lymph # Seg Neutrophils % Seg Neutrophils # D-Dimer ABG pH ABG pO2 ABG HCO3 ABG O2 Saturation ABG Base Excess ABG Hemoglobin Oxyhemoglobin Sodium Potassium Chloride Carbon Dioxide BUN Creatinine Glucose POC Glucose 279 H 269 H 205 H Hemoglobin A1c Lactic Acid Calcium Ferritin AST ALT Alkaline Phosphatase Lactate Dehydrogenase C-Reactive Protein NT-Pro-B Natriuret Pep Albumin Salicylates Acetaminophen Crossmatch 05/23/19 05/24/19 05/24/19 21:07 00:01 03:55 WBC RBC Hgb Hct MCH RDW Lymph % (Auto) Lymph # Seg Neutrophils % Seg Neutrophils # D-Dimer ABG pH 7.471 H ABG pO2 163.2 H ABG HCO3 ABG O2 Saturation 99.1 H ABG Base Excess ABG Hemoglobin 6.0 L Oxyhemoglobin Sodium Potassium Chloride Carbon Dioxide BUN Creatinine Glucose POC Glucose 274 H 260 H Hemoglobin A1c Lactic Acid Calcium Ferritin AST ALT Alkaline Phosphatase Lactate Dehydrogenase C-Reactive Protein NT-Pro-B Natriuret Pep Albumin Salicylates Acetaminophen Crossmatch 05/24/19 05/24/19 05/24/19 05:00 05:00 05:00 WBC RBC Hgb Hct MCH RDW Lymph % (Auto) Lymph # Seg Neutrophils % Seg Neutrophils # D-Dimer 2422.36 H ABG pH ABG pO2 ABG HCO3 ABG O2 Saturation ABG Base Excess ABG Hemoglobin Oxyhemoglobin Sodium Potassium Chloride Carbon Dioxide BUN Creatinine Glucose POC Glucose Hemoglobin A1c Lactic Acid Calcium Ferritin 3849.0 H AST ALT Alkaline Phosphatase Lactate Dehydrogenase 904 H C-Reactive Protein 44.40 H NT-Pro-B Natriuret Pep Albumin Salicylates Acetaminophen Crossmatch 05/24/19 05/24/19 05/24/19 05:00 05:00 05:29 WBC 17.2 H RBC 2.16 L Hgb 5.9 L* Hct 18.1 L* MCH 27 L RDW 15.3 H Lymph % (Auto) Lymph # Seg Neutrophils % Seg Neutrophils # D-Dimer ABG pH ABG pO2 ABG HCO3 ABG O2 Saturation ABG Base Excess ABG Hemoglobin Oxyhemoglobin Sodium Potassium 3.5 L D Chloride 93.4 L Carbon Dioxide 21 L BUN 97 H Creatinine 7.9 H Glucose 312 H POC Glucose 339 H Hemoglobin A1c Lactic Acid Calcium Ferritin AST ALT Alkaline Phosphatase Lactate Dehydrogenase C-Reactive Protein NT-Pro-B Natriuret Pep Albumin Salicylates Acetaminophen Crossmatch 05/24/19 05/24/19 05/24/19 08:45 12:48 18:05 WBC RBC Hgb Hct MCH RDW Lymph % (Auto) Lymph # Seg Neutrophils % Seg Neutrophils # D-Dimer ABG pH ABG pO2 ABG HCO3 ABG O2 Saturation ABG Base Excess ABG Hemoglobin Oxyhemoglobin Sodium Potassium Chloride Carbon Dioxide BUN Creatinine Glucose POC Glucose 270 H 154 H Hemoglobin A1c Lactic Acid Calcium Ferritin AST ALT Alkaline Phosphatase Lactate Dehydrogenase C-Reactive Protein NT-Pro-B Natriuret Pep Albumin Salicylates Acetaminophen Crossmatch See Detail 05/24/19 05/25/19 05/25/19 23:49 04:00 04:01 WBC 14.9 H RBC 3.62 L Hgb 9.8 L D Hct 29.3 L D MCH 27 L RDW Lymph % (Auto) Lymph # Seg Neutrophils % Seg Neutrophils # D-Dimer ABG pH ABG pO2 52.6 L ABG HCO3 ABG O2 Saturation 87.6 L ABG Base Excess ABG Hemoglobin 11.5 L Oxyhemoglobin 85.7 L Sodium Potassium Chloride Carbon Dioxide BUN Creatinine Glucose POC Glucose 199 H Hemoglobin A1c Lactic Acid Calcium Ferritin AST ALT Alkaline Phosphatase Lactate Dehydrogenase C-Reactive Protein NT-Pro-B Natriuret Pep Albumin Salicylates Acetaminophen Crossmatch 05/25/19 05/25/19 05/25/19 04:01 05:41 08:33 WBC RBC Hgb Hct MCH RDW Lymph % (Auto) Lymph # Seg Neutrophils % Seg Neutrophils # D-Dimer ABG pH 7.459 H ABG pO2 56.8 L ABG HCO3 ABG O2 Saturation 89.8 L ABG Base Excess ABG Hemoglobin 9.2 L Oxyhemoglobin 87.8 L Sodium Potassium 2.8 L* Chloride 96.4 L Carbon Dioxide BUN 59 H Creatinine 5.2 H Glucose 147 H POC Glucose 127 H Hemoglobin A1c Lactic Acid Calcium Ferritin AST 128 H ALT Alkaline Phosphatase 142 H Lactate Dehydrogenase C-Reactive Protein NT-Pro-B Natriuret Pep Albumin 2.9 L Salicylates Acetaminophen Crossmatch 05/25/19 13:36 WBC RBC Hgb Hct MCH RDW Lymph % (Auto) Lymph # Seg Neutrophils % Seg Neutrophils # D-Dimer ABG pH ABG pO2 ABG HCO3 ABG O2 Saturation ABG Base Excess ABG Hemoglobin Oxyhemoglobin Sodium Potassium Chloride Carbon Dioxide BUN Creatinine Glucose POC Glucose 108 H Hemoglobin A1c Lactic Acid Calcium Ferritin AST ALT Alkaline Phosphatase Lactate Dehydrogenase C-Reactive Protein NT-Pro-B Natriuret Pep Albumin Salicylates Acetaminophen Crossmatch Chest x-ray: image reviewed (ETT [place]; advance 2 cm) Allied health notes reviewed: nursing
--- NOTE | 2019-05-25 18:01 | Progress Note ---
Assessment and Plan Cultures: Blood culture 05/15/2019 no growth to date Sputum culture 05/15/2019 Strep pneumoniae A/P: 63 y/o female with history of ESRD s/p AV graft placement 3 days before admission, admitted on 05/15/2019 for fever and drainage from the left upper extremity graft site as well as cough with whezzing and fever 102: #Severe sepsis: fever resolved; likely due to COVID pneumonia #Severe COVID pneumonia: COVID test positive. Now with Strep pneumoniae in sputum likely bacterial pneumonia on top of COVID. Markers DOWN. CT chest shows bilateral diffuse ground glass opacities. CXR better # AVG edema / erythema (per vascular not infected - duplex scan demonstrates patent graft with appropriate flow volumes and with minimal fluid noted at the venous anastomosis) #Acute Acute Respiratory Failure: intubated, due to pneumonia - not better today on FiO2 40%p8 -->FiO2 75%p10 #DM: uncontrolled #ESRD on HD had vas cath placed for HD #Severe anemia on therapeutic heparin Recs: S/p po ivermectin x1 (off labe use), inhibits COVID replication in vitro on 05/22/2019 S/p tocilizumab IV x 1 05/23/2019 S/p plaquenil and zinc total 5 days On steroid trial On prophylactic anticoagualtion Continue ceftriaxone 2 gm IVq day for Strep pneumoniae pneumonia Day 5 of 7 ContinueCOVID isolationprecautions per [facility] protocol Obtain Ferritin, LDH, D-Dimer, CRP q 48h Will follow Lou Bettencourt MD Infectious Diseases Scanner [employer] [facility] M [phone] O [phone] Subjective Date of service: 05/25/19 Principal diagnosis: Ac hypoxemic resp failure; Hakeem pneumonia; Sepsis; COVID-19 infection; ESRD Interval history: No fever, no pressors, intubated FiO2 75% and p10 PUI?: Yes COVID19: Pending Objective - Exam Narrative Exam: Constitutional: Intubated, sedated FiO2 40% p8 Head, Ears, Nose:limited due to lack of PPE Oral: Endotracheal tube Cardiovascular: Limited evaluation due to PPE shortage Respiratory: Limited evaluation due to PPE shortage GI: Limited evaluation due to PPE shortage Musculoskeletal: Limited evaluation due to PPE shortage Skin: right arm AVG with edema Neurological: Sedated - Constitutional Vitals: Vital Signs Temp Pulse Resp BP Pulse Ox 98.6 F 111 H 27 H 90/60 89 05/25/19 16:00 05/25/19 17:45 05/25/19 17:45 05/25/19 17:45 05/25/19 17:45 Temperature -Last 24 Hours Temperature 98.6 F Temperature 98.5 F Temperature 97.7 F Temperature 98.9 F Temperature 99.1 F Temperature 98.8 F Temperature 98.7 F - Labs CBC & Chem 7: 05/25/19 04:01 05/25/19 04:01 Labs: Abnormal lab results 05/24/19 05/25/19 05/25/19 Range/Units 23:49 04:00 04:01 WBC 14.9 H (4.5-11.0) K/mm3 RBC 3.62 L (3.65-5.03) M/mm3 Hgb 9.8 L D (10.1-14.3) gm/dl Hct 29.3 L D (30.3-42.9) % MCH 27 L (28-32) pg ABG pH (7.350-7.450) pH Units ABG pO2 52.6 L (80.0-90.0) mm Hg ABG O2 Saturation 87.6 L (95.0-99.0) % ABG Hemoglobin 11.5 L (12.0-16.0) gm/dl Oxyhemoglobin 85.7 L (95.0-99.0) % Potassium (3.6-5.0) mmol/L Chloride (98-107) mmol/L BUN (7-17) mg/dL Creatinine (0.7-1.2) mg/dL Glucose (65-100) mg/dL POC Glucose 199 H (70-105) AST (5-40) units/L Alkaline Phosphatase (35-129) units/L Albumin (3.9-5) g/dL 05/25/19 05/25/19 05/25/19 Range/Units 04:01 05:41 08:33 WBC (4.5-11.0) K/mm3 RBC (3.65-5.03) M/mm3 Hgb (10.1-14.3) gm/dl Hct (30.3-42.9) % MCH (28-32) pg ABG pH 7.459 H (7.350-7.450) pH Units ABG pO2 56.8 L (80.0-90.0) mm Hg ABG O2 Saturation 89.8 L (95.0-99.0) % ABG Hemoglobin 9.2 L (12.0-16.0) gm/dl Oxyhemoglobin 87.8 L (95.0-99.0) % Potassium 2.8 L* (3.6-5.0) mmol/L Chloride 96.4 L (98-107) mmol/L BUN 59 H (7-17) mg/dL Creatinine 5.2 H (0.7-1.2) mg/dL Glucose 147 H (65-100) mg/dL POC Glucose 127 H (70-105) AST 128 H (5-40) units/L Alkaline Phosphatase 142 H (35-129) units/L Albumin 2.9 L (3.9-5) g/dL 05/25/19 05/25/19 05/25/19 Range/Units 12:03 13:36 17:13 WBC (4.5-11.0) K/mm3 RBC (3.65-5.03) M/mm3 Hgb (10.1-14.3) gm/dl Hct (30.3-42.9) % MCH (28-32) pg ABG pH (7.350-7.450) pH Units ABG pO2 (80.0-90.0) mm Hg ABG O2 Saturation (95.0-99.0) % ABG Hemoglobin (12.0-16.0) gm/dl Oxyhemoglobin (95.0-99.0) % Potassium (3.6-5.0) mmol/L Chloride (98-107) mmol/L BUN (7-17) mg/dL Creatinine (0.7-1.2) mg/dL Glucose (65-100) mg/dL POC Glucose 42 L 108 H 168 H (70-105) AST (5-40) units/L Alkaline Phosphatase (35-129) units/L Albumin (3.9-5) g/dL
[2019-05-26] MEDS: INSULIN LISPRO 100 UNIT/ML SUB-Q SCH ×4 (00:01→17:54)
[2019-05-26 04:17] LABS: ABG Base Excess -3.9 mmol/L (-2.0-3.0); ABG HCO3 19.6 mmol/L (20.0-26.0); ABG Methemoglobin 0.5 % (0.0-1.5); ABG Oxygen Saturation 95.3 % (95.0-99.0); ABG PCO2 29.8 mm Hg; ABG PH 7.436 pH Units (7.350-7.450); ABG PO2 71.9 mm Hg (80.0-90.0)
[2019-05-26 04:47] LABS: Hematocrit 29.4 % (30.3-42.9); Hemoglobin 9.7 gm/dl (10.1-14.3); Mean Corpuscular HGB Conc 33 % (30-34); Mean Corpuscular Volume 82 fl (79-97); Platelet Count 265 K/mm3 (140-440); Red Blood Count 3.56 M/mm3 (3.65-5.03); Red Cell Distribution Width 15.1 % (13.2-15.2)
[2019-05-26] MEDS: METOCLOPRAMIDE 10 MG/2 ML INJ IV SCH ×3 (05:06→21:39)
[2019-05-26] MEDS: SODIUM BICARBONATE 650 MG TAB PO SCH ×3 (08:20→20:06)
[2019-05-26] MEDS: NORepinephrine/NS 4 MG-250 ML 4 MG/250 ML BAG IV SCH ×2 (08:46→22:57)
--- NOTE | 2019-05-26 09:02 | Progress Note ---
Assessment and Plan Assessment and plan: --Covid-19 confirmed Covid19 paperwork completed by ED F/U ferritin, LDH, D-Dimer and CRP --Acute hypoxic respiratory failure; requiring intubation On ventilatory support, nebulizers Supportive care, pulmonary critical following Wean as tolerated per pulm --Bilateral patchy groundglass opacities/pneumonia Isolation precautions, cultures ID following --Acute metabolic encephalopathy; Present on admission, probably secondary to hypoxemia --Infected AV graft for dialysis; IV antibiotics, vascular,ID following --End-stage renal disease on hemodialysis; HD per schedulen nephrology following --Type 2 diabetes mellitus; moderate control Accu-Chek sliding scale coverage ADA diet and insulin as needed HbA1c 7.7 --Moderate malnutrition/hypoalbuminemia Due to underlying disease process, nutrition supplements Nutrition consult as needed --Lactic acidosis; rule out infections Supportive care --DVT prophylaxis; Lovenox --Obesity BMI 31.6; Patient needs weight reduction when medically stable Anemia Hgb 5.9. Transfuse 2 units PRBC and repeat obtain stool occult blood --Full CODE STATUS; Monitor closely and adjust management as needed Very poor prognosis Plan of care reviewed with the patient's nurse 05/18/2019 Covid-19 confirmed Patient currently with AC mode, rate20, tidal volume 450, FiO2 50% and PEEP 6. Continue hydroxychloroquine 400 mg p.o. twPatient is critically ill with poor prognosis. Wean as tolerated per pulmonarice daily x1 day then 200 mg p.o. x 4 twice daily for 5 days. Continue cefepime per ID. Follow-up inflammatory markers of ferritin, LDH, d-dimer and CRP. 05/19/19 Patient currently with AC mode, rate20, tidal volume 450, FiO2 50% and PEEP 6. Patient is critically ill with poor prognosis. Continue Plaquenil 200 mg p.o. x 4 twice daily for 5 days. Continue cefepime per ID. Follow-up inflammatory markers of ferritin, LDH, d-dimer and CRP. Discussed confirmed positive test with daughter 05/20/2019. Continue Plaquenil taper per ID recommendations. Continue mechanical ventilation with AC mode, rate 14, tidal volume 450 and PEEP 6. Follow-up inflammatory markers of ferritin, LDH, d-dimer and CRP. 05/21/2019. Patient remains critically ill on mechanical ventilation AC mode with rate 14, tidal volume 450, FiO2 40% and PEEP of 6. Patient has strep pneumonia in sputum and likely has bacterial pneumonia exacerbated with COVID-19. Ferritin and LDH elevated but d-dimer decreased. Follow-up repeat chest x-ray. Continue antibiotics per IDceftriaxone. Continue Plaquenil/zinc. Continue CO VID isolation precautions. Follow-up inflammatory markers. Patient with poor prognosis and high risk mortality. 05/22/2019. Patient remains critically ill on mechanical ventilation AC mode with rate 25, tidal volume 450, FiO2 65% and PEEP of 8. Patient has strep pneumonia in sputum and likely has bacterial pneumonia exacerbated with COVID-19. Ferritin and LDH elevated but d-dimer decreased. Follow-up repeat chest x-ray. Continue antibiotics per IDceftriaxone. Continue Plaquenil/zinc. Continue COVID isolation precautions. Follow-up inflammatory markers. Continue hemodialysis per nephrology and evaluate on a daily basis. Patient with poor prognosis and high risk mortality. 05/23/2019 patient with covid-19 infection. She is critically ill, still intubated on vent. 05/24/2019 patient hgb 5.9. Transfuse 2 Units PRBC. I discussed this with Nurse. She is still critically ill, intubated 05/25/2019 patient transfused 2 units PRBC, hgb now 9.8. Off levophed. 05/26/19 Patient still critically ill, still intubated, on vent, Continue Levophed. The high probability of a clinically significant, sudden or life threatening deterioration of the [immunologic and respiratory] system(s) required my full and direct attention, intervention and personal management. The aggregate critical care time was [33] minutes. This time is in addition to time spent performing reported procedures but includes the following: [x] Data Review and interpretation [x] Patient assessment and monitoring of vital signs [x] Documentation [x] Medication orders and management History Interval history: Patient with Covid-19 infection, fever No more fever X 3 days PUI?: Yes COVID19: Pending Hospitalist Physical - Physical exam Narrative exam: GEN: Not in acute distress, obese HEENT: Normocephalic, atraumatic, Neck: supple, No JVD Lungs: Clear to auscultation bilaterally heart;S1 and S2 reg, no murmurs, rubs or gallop Abd:soft, non tender, non distended, normal bowel sounds, Ext: No edema, no clubbing, no cyanosis, Neuro: Intubated - Constitutional Vitals: Temp Pulse Resp BP Pulse Ox 99.2 F 93 H 34 H 85/43 95 05/26/19 08:00 05/26/19 08:45 05/26/19 08:45 05/26/19 08:45 05/26/19 08:45 General appearance: Present: other (Currently on a ventilator and sedated) Results - Labs CBC & Chem 7: 05/26/19 03:43 05/26/19 03:43 Labs: Laboratory Last Values WBC 20.3 K/mm3 (4.5-11.0) H 05/26/19 03:43 RBC 3.56 M/mm3 (3.65-5.03) L 05/26/19 03:43 Hgb 9.7 gm/dl (10.1-14.3) L 05/26/19 03:43 Hct 29.4 % (30.3-42.9) L 05/26/19 03:43 MCV 82 fl (79-97) 05/26/19 03:43 MCH 27 pg (28-32) L 05/26/19 03:43 MCHC 33 % (30-34) 05/26/19 03:43 RDW 15.1 % (13.2-15.2) 05/26/19 03:43 Plt Count 265 K/mm3 (140-440) 05/26/19 03:43 Lymph % (Auto) 6.4 % (13.4-35.0) L 05/17/19 05:43 Gillespie % (Auto) 4.9 % (0.0-7.3) 05/17/19 05:43 Eos % (Auto) 0.9 % (0.0-4.3) 05/17/19 05:43 Baso % (Auto) 0.3 % (0.0-1.8) 05/17/19 05:43 Lymph # 0.5 K/mm3 (1.2-5.4) L 05/17/19 05:43 Gillespie # 0.4 K/mm3 (0.0-0.8) 05/17/19 05:43 Eos # 0.1 K/mm3 (0.0-0.4) 05/17/19 05:43 Baso # 0.0 K/mm3 (0.0-0.1) 05/17/19 05:43 Seg Neutrophils % 87.5 % (40.0-70.0) H 05/17/19 05:43 Seg Neutrophils # 7.2 K/mm3 (1.8-7.7) 05/17/19 05:43 D-Dimer 2422.36 ng/mlDDU (0-234) H 05/24/19 05:00 Heparin Anti-Xa Level 0.54 U.I./ml (0.3-0.7) 05/24/19 08:45 ABG pH 7.436 pH Units (7.350-7.450) 05/26/19 03:56 ABG pCO2 29.8 mm Hg 05/26/19 03:56 ABG pO2 71.9 mm Hg (80.0-90.0) L 05/26/19 03:56 ABG HCO3 19.6 mmol/L (20.0-26.0) L 05/26/19 03:56 ABG O2 Saturation 95.3 % (95.0-99.0) 05/26/19 03:56 ABG O2 Content 12.8 (0.0-44) 05/26/19 03:56 ABG Base Excess -3.9 mmol/L (-2.0-3.0) L 05/26/19 03:56 ABG Hemoglobin 9.7 gm/dl (12.0-16.0) L 05/26/19 03:56 ABG Carboxyhemoglobin 1.3 % (0.0-5.0) 05/26/19 03:56 ABG Methemoglobin 0.5 % (0.0-1.5) 05/26/19 03:56 Oxyhemoglobin 93.6 % (95.0-99.0) L 05/26/19 03:56 FiO2 75 % 05/26/19 03:56 Sodium 142 mmol/L (137-145) 05/26/19 03:43 Potassium 3.6 mmol/L (3.6-5.0) D 05/26/19 03:43 Chloride 100.2 mmol/L (98-107) 05/26/19 03:43 Carbon Dioxide 18 mmol/L (22-30) L 05/26/19 03:43 Anion Gap 27 mmol/L 05/26/19 03:43 BUN 85 mg/dL (7-17) H 05/26/19 03:43 Creatinine 7.6 mg/dL (0.7-1.2) H 05/26/19 03:43 Estimated GFR 7 ml/min 05/26/19 03:43 BUN/Creatinine Ratio 11 % 05/26/19 03:43 Glucose 229 mg/dL (65-100) H 05/26/19 03:43 POC Glucose 222 (70-105) H 05/26/19 04:51 Hemoglobin A1c 7.7 % (4-6) H 05/15/19 Unknown Lactic Acid 1.40 mmol/L (0.7-2.0) 05/15/19 11:41 Calcium 9.0 mg/dL (8.4-10.2) 05/26/19 03:43 Ferritin 3849.0 ng/mL (13.0-400.0) H 05/24/19 05:00 Total Bilirubin 0.30 mg/dL (0.1-1.2) 05/25/19 04:01 AST 128 units/L (5-40) H 05/25/19 04:01 ALT 43 units/L (7-56) 05/25/19 04:01 Alkaline Phosphatase 142 units/L (35-129) H 05/25/19 04:01 Lactate Dehydrogenase 904 units/L (91-180) H 05/24/19 05:00 C-Reactive Protein 44.40 mg/dL (0.00-1.30) H 05/24/19 05:00 NT-Pro-B Natriuret Pep 7240 pg/mL (0-900) H 05/15/19 09:11 Total Protein 7.7 g/dL (6.3-8.2) 05/25/19 04:01 Albumin 2.9 g/dL (3.9-5) L 05/25/19 04:01 Albumin/Globulin Ratio 0.6 % 05/25/19 04:01 Procalcitonin 21.80 ng/mL (<0.15) 05/24/19 05:00 Urine Color Straw (Yellow) 05/15/19 12:07 Urine Turbidity Clear (Clear) 05/15/19 12:07 Urine pH 7.0 (5.0-7.0) 05/15/19 12:07 Ur Specific Rewey 1.009 (1.003-1.030) 05/15/19 12:07 Urine Protein 100 mg/dl mg/dL (Negative) 05/15/19 12:07 Urine Glucose (UA) >=500 mg/dL (Negative) 05/15/19 12:07 Urine Ketones Neg mg/dL (Negative) 05/15/19 12:07 Urine Blood Sm (Negative) 05/15/19 12:07 Urine Nitrite Neg (Negative) 05/15/19 12:07 Urine Bilirubin Neg (Negative) 05/15/19 12:07 Urine Urobilinogen < 2.0 mg/dL (<2.0) 05/15/19 12:07 Ur Leukocyte Esterase Neg (Negative) 05/15/19 12:07 Urine WBC (Auto) 3.0 /HPF (0.0-6.0) 05/15/19 12:07 Urine RBC (Auto) 18.0 /HPF (0.0-6.0) 05/15/19 12:07 Urine Mucus Few /HPF 05/15/19 12:07 Random Vancomycin 11.9 ug/mL (0-40.0) 05/17/19 14:57 Salicylates < 0.3 mg/dL (2.8-20.0) L 05/15/19 13:10 Acetaminophen < 5.0 ug/mL (10.0-30.0) L 05/15/19 13:10 Hepatitis A IgM Ab Non-reactive (NonReactive) 05/22/19 10:50 Hep Bs Antigen Non-reactive (Negative) 05/22/19 10:50 Hep B Core IgM Ab Non-reactive (NonReactive) 05/22/19 10:50 Hepatitis C Antibody Non-reactive (NonReactive) 05/22/19 10:50 Miscellaneous Test See scanned result 05/16/19 Unknown Blood Type O POSITIVE 05/24/19 08:45 Antibody Screen Negative 05/24/19 08:45 Crossmatch See Detail 05/24/19 08:45 Castellanos/IV: Voiding Method Indwelling Catheter IV Catheter Type [Right VAS Cath Femoral] IV Catheter Type [Left INT / Saline Lock External Jugular] IV Catheter Type [Right Wrist] INT / Saline Lock IV Catheter Type [Right INT / Saline Lock External Jugular] Active Medications - Current Medications Current Medications: Generic Name Dose Route Start Last Admin Trade Name Freq PRN Reason Stop Dose Admin Acetaminophen 650 mg 05/15/19 23:04 05/21/19 16:17 Tylenol PO 650 mg Q4H PRN Administration Pain MILD(1-3)/Fever >100.5/MELVIN Acetaminophen 650 mg 05/16/19 01:28 05/16/19 01:44 Tylenol VA 650 mg Q6H PRN Administration TEMP > 100.3 Lipase/Protease/Amylase 1 each 05/16/19 11:[address] 10,500 Unit FEEDTUBE PRN PRN For Clogged Feeding Tube Dextrose 25 ml 05/25/19 13:00 05/25/19 12:20 D50w (25gm) Syringe IV 25 ml Q30MIN PRN Administration BLOOD GLUCOSE </=80 Famotidine 20 mg 05/18/19 10:00 05/25/19 09:20 Pepcid PO 20 mg DAILY LUIS M Administration Heparin Sodium (Porcine) 5,000 unit 05/24/19 22:00 05/25/19 21:07 Heparin SUB-Q 5,000 unit Q12HR LUIS M Administration Hydromorphone HCl 0.25 mg 05/15/19 23:04 05/25/19 12:22 Dilaudid IV 0.25 mg Q3H PRN Administration Pain, Moderate (4-6) Hydrophilic Ointment 1 applic 05/15/19 09:48 Vaseline Lip Therapy TP Q2HR PRN Dry Lips Propofol 1,000 mg in 100 mls @ 2.585 mls/hr 05/15/19 11:00 05/26/19 08:38 Diprivan 10 Mg/Ml IV 15 mcg/kg/min TITR LUIS M 7.756 mls/hr Administration Protocol 5 MCG/KG/MIN Ceftriaxone Sodium 2 gm in 100 mls @ 200 mls/hr 05/21/19 11:00 05/25/19 22:34 Rocephin/Ns 2 Gm/100 Ml IV 05/27/19 10:29 Infused Q24HR LUIS M Infusion Protocol Norepinephrine 4 mg in 250 mls @ 18.75 mls/hr 05/21/19 23:45 05/26/19 08:46 Levophed Drip 4 Mg/Ns 250 Ml IV 4 mcg/min TITR LUIS M 15 mls/hr Administration Protocol 5 MCG/MIN Sodium Chloride 100 mls @ 999 mls/hr 05/23/19 08:59 Nacl 0.9% IV COBY PRN Hypotension Sodium Chloride 100 mls @ 999 mls/hr 05/26/19 08:38 Nacl 0.9% IV COBY PRN Hypotension Insulin Human Lispro 0 unit 05/16/19 00:00 05/26/19 05:06 Humalog SUB-Q 4 unit Q6HR LUIS M Administration Protocol Metoclopramide HCl 5 mg 05/15/19 23:24 Reglan IV Q6H PRN Nausea And Vomiting Metoclopramide HCl 5 mg 05/25/19 14:00 05/26/19 05:06 Reglan IV 5 mg Q8HR LUIS M Administration Multi-Ingred Cream/Lotion/Oil/Oint 1 applic 05/15/19 09:48 05/25/19 18:29 Artificial Tears Ophth Oint OU 1 applic Q4HR PRN Administration Dry Eye(s) Ondansetron HCl 4 mg 05/15/19 23:04 05/19/19 18:30 Zofran IV 4 mg Q8H PRN Administration Nausea And Vomiting Simple Syrup 15 ml 05/16/19 11:14 Simple Syrup FEEDTUBE PRN PRN Hypoglycemia Simple Syrup 30 ml 05/16/19 11:14 Simple Syrup FEEDTUBE PRN PRN Hypoglycemia Sodium Bicarbonate 325 mg 05/16/19 11:14 Sodium Bicarbonate FEEDTUBE PRN PRN For Clogged Feeding Tube Sodium Bicarbonate 650 mg 05/21/19 15:00 05/26/19 08:20 Sodium Bicarbonate PO 650 mg TID LUIS M Administration Sodium Chloride 10 ml 05/16/19 10:00 05/25/19 22:28 Sodium Chloride Flush Syringe 10 Ml IV 10 ml BID LUIS M Administration Sodium Chloride 10 ml 05/15/19 23:04 Sodium Chloride Flush Syringe 10 Ml IV PRN PRN LINE FLUSH Nutrition/Malnutrition Assess - Dietary Evaluation Nutrition/Malnutrition Findings: Nutrition Notes Start: 05/16/19 08:31 Freq: Status: Active Protocol: Document 05/22/19 09:52 LM (Rec: 05/22/19 09:56 LM [id number]) Nutrition Notes Initial or Follow up Reassessment Current Diagnosis CKD (stage V CKD),Diabetes, Hypertension,Respiratory Failure Other Pertinent Diagnosis AV graft infection, fever, COVID-19 positive Current Diet Nepro 1.8 at 45ml/hr Labs/Tests BG 493 Pertinent Medications Humalog Lantus Levophed Zinc Height 5 ft 5 in Weight 82.8 kg [place] Body Weight (kg) 56.81 BMI 30.4 Weight Status Obese Subjective/Other Information Pt tolerating TF at goal rate. 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 Yes Is Patient Ambulatory and/or Out of Bed No REE-([facility]-confined to bed) 6316.726 Calculation Used for Recommendations [facility] Additional Notes Protein: 114g (>/=2g/kg using IBW 57kg) Fluid: per MD Nutrition Intervention Change Diet Order: TF Nutrition Support: Nepro 1.8 at 45ml/hr Flush 200 ml q4h Kcal 1,944 Protein (gm) 87 Fluid (mL) 785 Goal #1 TF tolerance Goal #2 Meet at least 75% of energy and protein needs via TF Anticipated Discharge Needs: unable to determine at this time Follow-Up By: 05/29/19 Additional Comments F/U for TF tolerance
[2019-05-26] MEDS: cefTRIAXone/NS 2 GM/100 ML 2 GM/100 ML BAG IV SCH (09:23)
[2019-05-26] MEDS: HEPARIN 5,000 UNIT/1 ML VIAL SUB-Q SCH ×2 (09:23→21:37)
[2019-05-26] MEDS: FAMOTIDINE 20 MG TAB PO SCH (09:23)
[2019-05-26] MEDS ORDERED: SODIUM CHLORIDE 0.9% 100 ML IV PRN (09:30)
[2019-05-26 12:11] LABS: C-Reactive Protein 22.2 mg/dL (0.00-1.30)
--- NOTE | 2019-05-26 13:02 | Progress Note ---
Assessment and Plan Cultures: Blood culture 05/15/2019 no growth to date Sputum culture 05/15/2019 Strep pneumoniae A/P: 63 y/o female with history of ESRD s/p AV graft placement 3 days before admission, admitted on 05/15/2019 for fever and drainage from the left upper extremity graft site as well as cough with whezzing and fever 102: #Severe sepsis: fever resolved; likely due to COVID pneumonia #Severe COVID pneumonia: COVID test positive. Now with Strep pneumoniae in sputum likely bacterial pneumonia on top of COVID. Markers DOWN. CT chest shows bilateral diffuse ground glass opacities. 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 Dr Mcclure covering weekend Lou Bettencourt MD Infectious Diseases Filling [employer] [facility] ([facility]) M [phone] O [phone] Subjective Date of service: 05/26/19 Principal diagnosis: Ac hypoxemic resp failure; Hakeem pneumonia; Sepsis; COVID-19 infection; ESRD Interval history: No fever, no pressors, intubated FiO2 75% and p10 PUI?: Yes COVID19: Pending Objective - Exam Narrative Exam: Constitutional: Intubated, sedated FiO2 40% p8 Head, Ears, Nose:limited due to lack of PPE Oral: Endotracheal tube Cardiovascular: Limited evaluation due to PPE shortage Respiratory: Limited evaluation due to PPE shortage GI: Limited evaluation due to PPE shortage Musculoskeletal: Limited evaluation due to PPE shortage Skin: right arm AVG with edema Neurological: Sedated - Constitutional Vitals: Vital Signs Temp Pulse Resp BP Pulse Ox 99.2 F 106 H 36 H 153/83 99 05/26/19 08:00 05/26/19 12:45 05/26/19 09:45 05/26/19 12:45 05/26/19 09:45 Temperature -Last 24 Hours Temperature 99.2 F Temperature 98.4 F Temperature 98.4 F Temperature 98.4 F Temperature 98.6 F - Labs CBC & Chem 7: 05/26/19 03:43 05/26/19 03:43 Labs: Abnormal lab results 05/25/19 05/25/19 05/25/19 Range/Units 12:03 13:36 17:13 WBC (4.5-11.0) K/mm3 RBC (3.65-5.03) M/mm3 Hgb (10.1-14.3) gm/dl Hct (30.3-42.9) % MCH (28-32) pg ABG pO2 (80.0-90.0) mm Hg ABG HCO3 (20.0-26.0) mmol/L ABG Base Excess (-2.0-3.0) mmol/L ABG Hemoglobin (12.0-16.0) gm/dl Oxyhemoglobin (95.0-99.0) % Carbon Dioxide (22-30) mmol/L BUN (7-17) mg/dL Creatinine (0.7-1.2) mg/dL Glucose (65-100) mg/dL POC Glucose 42 L 108 H 168 H (70-105) Lactate Dehydrogenase (91-180) units/L C-Reactive Protein (0.00-1.30) mg/dL 05/25/19 05/26/19 05/26/19 Range/Units 23:43 03:43 03:43 WBC 20.3 H (4.5-11.0) K/mm3 RBC 3.56 L (3.65-5.03) M/mm3 Hgb 9.7 L (10.1-14.3) gm/dl Hct 29.4 L (30.3-42.9) % MCH 27 L (28-32) pg ABG pO2 (80.0-90.0) mm Hg ABG HCO3 (20.0-26.0) mmol/L ABG Base Excess (-2.0-3.0) mmol/L ABG Hemoglobin (12.0-16.0) gm/dl Oxyhemoglobin (95.0-99.0) % Carbon Dioxide 18 L (22-30) mmol/L BUN 85 H (7-17) mg/dL Creatinine 7.6 H (0.7-1.2) mg/dL Glucose 229 H (65-100) mg/dL POC Glucose 266 H (70-105) Lactate Dehydrogenase (91-180) units/L C-Reactive Protein (0.00-1.30) mg/dL 05/26/19 05/26/19 05/26/19 Range/Units 03:43 03:56 04:51 WBC (4.5-11.0) K/mm3 RBC (3.65-5.03) M/mm3 Hgb (10.1-14.3) gm/dl Hct (30.3-42.9) % MCH (28-32) pg ABG pO2 71.9 L (80.0-90.0) mm Hg ABG HCO3 19.6 L (20.0-26.0) mmol/L ABG Base Excess -3.9 L (-2.0-3.0) mmol/L ABG Hemoglobin 9.7 L (12.0-16.0) gm/dl Oxyhemoglobin 93.6 L (95.0-99.0) % Carbon Dioxide (22-30) mmol/L BUN (7-17) mg/dL Creatinine (0.7-1.2) mg/dL Glucose (65-100) mg/dL POC Glucose 222 H (70-105) Lactate Dehydrogenase 925 H (91-180) units/L C-Reactive Protein 22.20 H (0.00-1.30) mg/dL 05/26/19 Range/Units 11:53 WBC (4.5-11.0) K/mm3 RBC (3.65-5.03) M/mm3 Hgb (10.1-14.3) gm/dl Hct (30.3-42.9) % MCH (28-32) pg ABG pO2 (80.0-90.0) mm Hg ABG HCO3 (20.0-26.0) mmol/L ABG Base Excess (-2.0-3.0) mmol/L ABG Hemoglobin (12.0-16.0) gm/dl Oxyhemoglobin (95.0-99.0) % Carbon Dioxide (22-30) mmol/L BUN (7-17) mg/dL Creatinine (0.7-1.2) mg/dL Glucose (65-100) mg/dL POC Glucose 212 H (70-105) Lactate Dehydrogenase (91-180) units/L C-Reactive Protein (0.00-1.30) mg/dL
--- NOTE | 2019-05-26 14:18 | Progress Note ---
Assessment and Plan Acute hypoxemic respiratory failure, on mechanical ventilatory support. Bilateral pneumonia vs pulmonary edema. Bilateral pleural effusions. Severe Sepsis COVID-19 infection. End-stage renal disease, on dialysis. Acute toxic metabolic encephalopathy. Diabetes type 2. History of congestive heart failure. History of hypertension. Oropharyngeal dysphagia. Gastroesophageal reflux disease. Obesity - continue sedation with fentanyl re: agitation - wean vasopressors for target MAP > 65 mmHg - begin scheduled reglan 10 mg IV q8h to promote GI motility - continue airborne, droplet and contact precautions - follow serum inflammation markers - Conservative fluid management (use vasopressors including midodrine to support blood pressure). - ABG, CXR per protocol - VAP bundle addressed (continue aspiration precautions) - continue to wean supplemental oxygen to keep O2 sats > 90% - continue daily SAT's and SBT assessment - continue Bronchodilators (SHASHANK) with pulm hygiene per RT - sedation target for RASS 0 to -1 - Accuchecks with glycemic control, keep blood glucose 140-180 mg/dL while critically ill (Avoid hypoglycemia) - continue HD/UF for toxin and volume control - Avoid nephrotoxins, adjust and dose all medications for GFR and CrCL - continue GI & VTE prophylaxis - other COVID-19 precautions per [facility] protocol - enteral nutrition at goal rate as tolerated - prn analgesia per CPOT score - mobility protocols to prevent pressure ulcers - GI & VTE prophylaxis - Flu & pneumovax per protocol - continue other care per attending / other consultants ... re-evaluate in am & prn CONDITION: CRITICAL PROGNOSIS: GUARDED CODE STATUS: FULL CODE The high probability of a clinically significant, sudden or life threatening deterioration of the [pulmonary, renal & neurologic] system(s) required my full and direct attention, intervention and personal management. The aggregate critical care time was [32] minutes. This time is in addition to time spent performing reported procedures but includes the following: [x] Data Review and interpretation [x] Patient assessment and monitoring of vital signs [x] Documentation [x] Medication orders and management Subjective Date of service: 05/26/19 Principal diagnosis: Ac hypoxemic resp failure; Hakeem pneumonia; Sepsis; COVID-19 infection; ESRD Interval history: Patient is seen today for: Acute hypoxemic respiratory failure; Bilateral pneumonia vs pulmonary edema; Bilateral pleural effusions; Sepsis; Possible COVID-19 infection; End-stage renal disease, on dialysis; Acute toxic metabolic encephalopathy. Seen and examined at bedside; 24hour events reviewed; nursing and respiratory care staff consulted; no adverse overnight events reported to me; resting peacefully in bed; remains on MVS; arousable and follows simple prompts during sedation vacation; no new issues otherwise PUI?: Yes COVID19: Pending Objective Vital Signs - 12hr 05/26/19 05/26/19 05/26/19 02:30 02:45 03:00 Temperature Pulse Rate 112 H 102 H 102 H Pulse Rate [ From Monitor] Respiratory 31 H 22 31 H Rate Blood Pressure 92/62 114/59 106/60 O2 Sat by Pulse 97 97 96 Oximetry 05/26/19 05/26/19 05/26/19 03:15 03:30 03:45 Temperature Pulse Rate 111 H 102 H 100 H Pulse Rate [ From Monitor] Respiratory 30 H 29 H 27 H Rate Blood Pressure 97/55 112/67 98/58 O2 Sat by Pulse 96 96 95 Oximetry 05/26/19 05/26/19 05/26/19 04:00 04:15 04:30 Temperature Pulse Rate 104 H 103 H 101 H Pulse Rate [ From Monitor] Respiratory 32 H 30 H 29 H Rate Blood Pressure 95/60 88/58 93/62 O2 Sat by Pulse 95 94 95 Oximetry 05/26/19 05/26/19 05/26/19 04:41 04:45 05:00 Temperature 98.4 F Pulse Rate 103 H 103 H 108 H Pulse Rate [ From Monitor] Respiratory 33 H 26 H Rate Blood Pressure 93/62 91/61 101/64 O2 Sat by Pulse 94 95 95 Oximetry 05/26/19 05/26/19 05/26/19 05:15 05:31 05:45 Temperature Pulse Rate 101 H 103 H 103 H Pulse Rate [ From Monitor] Respiratory 26 H 36 H 35 H Rate Blood Pressure 151/73 111/94 81/43 O2 Sat by Pulse 98 94 91 Oximetry 05/26/19 05/26/19 05/26/19 06:01 06:15 06:31 Temperature Pulse Rate 99 H 108 H 98 H Pulse Rate [ From Monitor] Respiratory 33 H 34 H 35 H Rate Blood Pressure 83/48 83/48 83/48 O2 Sat by Pulse 93 93 95 Oximetry 05/26/19 05/26/19 05/26/19 06:45 07:00 07:15 Temperature Pulse Rate 110 H 105 H 99 H Pulse Rate [ From Monitor] Respiratory 36 H 35 H 33 H Rate Blood Pressure 83/48 98/64 83/48 O2 Sat by Pulse 94 95 94 Oximetry 05/26/19 05/26/19 05/26/19 07:31 07:45 08:00 Temperature 99.2 F Pulse Rate 95 H 95 H 99 H Pulse Rate [ 94 H From Monitor] Respiratory 32 H 30 H 31 H Rate Blood Pressure 83/48 83/48 83/48 O2 Sat by Pulse 95 95 95 Oximetry 05/26/19 05/26/19 05/26/19 08:01 08:15 08:31 Temperature Pulse Rate 94 H 93 H 92 H Pulse Rate [ From Monitor] Respiratory 31 H 25 H 34 H Rate Blood Pressure 83/48 83/48 83/48 O2 Sat by Pulse 95 95 95 Oximetry 05/26/19 05/26/19 05/26/19 08:45 09:01 09:15 Temperature Pulse Rate 93 H 100 H 103 H Pulse Rate [ From Monitor] Respiratory 34 H 35 H 35 H Rate Blood Pressure 85/43 115/62 93/52 O2 Sat by Pulse 95 97 97 Oximetry 05/26/19 05/26/19 05/26/19 09:30 09:45 10:00 Temperature Pulse Rate 105 H 95 H 95 H Pulse Rate [ From Monitor] Respiratory 35 H 36 H 35 H Rate Blood Pressure 104/56 100/58 107/57 O2 Sat by Pulse 98 99 99 Oximetry 05/26/19 05/26/19 05/26/19 10:15 10:30 10:45 Temperature Pulse Rate 95 H 93 H 90 Pulse Rate [ From Monitor] Respiratory 30 H 34 H 18 Rate Blood Pressure 90/52 100/55 99/45 O2 Sat by Pulse 98 98 96 Oximetry 05/26/19 05/26/19 05/26/19 11:00 11:15 11:30 Temperature Pulse Rate 94 H 97 H 97 H Pulse Rate [ From Monitor] Respiratory 33 H 34 H 32 H Rate Blood Pressure 125/70 139/74 141/76 O2 Sat by Pulse 98 98 97 Oximetry 05/26/19 05/26/19 05/26/19 11:45 12:00 12:15 Temperature Pulse Rate 95 H 94 H 93 H Pulse Rate [ From Monitor] Respiratory 24 51 H 32 H Rate Blood Pressure 121/65 97/52 91/53 O2 Sat by Pulse 98 97 96 Oximetry 05/26/19 05/26/19 05/26/19 12:30 12:45 13:00 Temperature Pulse Rate 92 H 104 H 114 H Pulse Rate [ From Monitor] Respiratory 31 H 35 H 37 H Rate Blood Pressure 92/45 153/83 128/71 O2 Sat by Pulse 98 99 95 Oximetry 05/26/19 05/26/19 05/26/19 13:15 13:30 13:40 Temperature Pulse Rate 111 H 170 H 172 H Pulse Rate [ From Monitor] Respiratory Rate Blood Pressure 116/60 105/54 94/65 O2 Sat by Pulse Oximetry Constitutional: appears uncomfortable, other (elderly looking obese AAF, normocephalic with no mildly increased work of breathing) Eyes: non-icteric ENT: oropharynx moist, other (ETT 24 cm KARLA) Neck: supple, no lymphadenopathy Effort: mildly labored Ascultation: Bilateral: diminished breath sounds, rhonchi Percussion: Bilateral: not dull Cardiovascular: regular rate and rhythm Gastrointestinal: normoactive bowel sounds, soft, non-tender, non-distended Integumentary: rash Extremities: no cyanosis, no edema, pulses normal, no ischemia or petechiae Neurologic: normal mental status, non-focal exam (grossly), pupils equal and round Psychiatric: anxious CBC and BMP: 05/28/19 14:48 05/28/19 13:58 ABG, PT/INR, D-dimer: ABG ABG pH 7.436 pH Units (7.350-7.450) 05/26/19 03:56 ABG pCO2 29.8 mm Hg 05/26/19 03:56 ABG pO2 71.9 mm Hg (80.0-90.0) L 05/26/19 03:56 ABG O2 Saturation 95.3 % (95.0-99.0) 05/26/19 03:56 PT/INR, D-dimer D-Dimer 2422.36 ng/mlDDU (0-234) H 05/24/19 05:00 Abnormal lab findings: Abnormal Labs 05/15/19 05/15/19 05/15/19 08:07 08:31 09:11 WBC 11.9 H RBC 3.41 L Hgb 9.3 L Hct 30.1 L MCH 27 L RDW Lymph % (Auto) Lymph # Seg Neutrophils % Seg Neutrophils # D-Dimer ABG pH ABG pO2 ABG HCO3 ABG O2 Saturation ABG Base Excess ABG Hemoglobin Oxyhemoglobin Sodium 136 L Potassium Chloride Carbon Dioxide 15 L D BUN 74 H Creatinine 5.8 H Glucose 267 H POC Glucose 344 H Hemoglobin A1c Lactic Acid Calcium Ferritin AST ALT < 5 L Alkaline Phosphatase Lactate Dehydrogenase C-Reactive Protein NT-Pro-B Natriuret Pep Albumin 3.2 L Salicylates Acetaminophen Crossmatch 05/15/19 05/15/19 05/15/19 09:11 09:11 09:30 WBC RBC Hgb Hct MCH RDW Lymph % (Auto) Lymph # Seg Neutrophils % Seg Neutrophils # D-Dimer ABG pH ABG pO2 ABG HCO3 ABG O2 Saturation ABG Base Excess -2.8 L ABG Hemoglobin 8.2 L Oxyhemoglobin 94.6 L Sodium Potassium Chloride Carbon Dioxide BUN Creatinine Glucose POC Glucose Hemoglobin A1c Lactic Acid 3.50 H* Calcium Ferritin AST ALT Alkaline Phosphatase Lactate Dehydrogenase C-Reactive Protein NT-Pro-B Natriuret Pep 7240 H Albumin Salicylates Acetaminophen Crossmatch 05/15/19 05/15/19 05/15/19 13:10 13:10 Unknown WBC RBC Hgb Hct MCH RDW Lymph % (Auto) Lymph # Seg Neutrophils % Seg Neutrophils # D-Dimer ABG pH ABG pO2 ABG HCO3 ABG O2 Saturation ABG Base Excess ABG Hemoglobin Oxyhemoglobin Sodium Potassium Chloride Carbon Dioxide BUN Creatinine Glucose POC Glucose Hemoglobin A1c 7.7 H Lactic Acid Calcium Ferritin AST ALT Alkaline Phosphatase Lactate Dehydrogenase C-Reactive Protein NT-Pro-B Natriuret Pep Albumin Salicylates < 0.3 L Acetaminophen < 5.0 L Crossmatch 05/16/19 05/16/19 05/16/19 03:44 03:58 13:08 WBC 12.9 H RBC Hgb Hct MCH RDW Lymph % (Auto) 7.1 L Lymph # 0.9 L Seg Neutrophils % 87.7 H Seg Neutrophils # 11.3 H D-Dimer ABG pH ABG pO2 213.3 H ABG HCO3 ABG O2 Saturation 99.3 H ABG Base Excess ABG Hemoglobin 7.5 L Oxyhemoglobin Sodium Potassium Chloride Carbon Dioxide BUN Creatinine Glucose POC Glucose 231 H Hemoglobin A1c Lactic Acid Calcium Ferritin AST ALT Alkaline Phosphatase Lactate Dehydrogenase C-Reactive Protein NT-Pro-B Natriuret Pep Albumin Salicylates Acetaminophen Crossmatch 05/16/19 05/16/19 05/17/19 18:28 23:34 05:02 WBC RBC Hgb Hct MCH RDW Lymph % (Auto) Lymph # Seg Neutrophils % Seg Neutrophils # D-Dimer ABG pH ABG pO2 91.9 H ABG HCO3 ABG O2 Saturation ABG Base Excess -3.6 L ABG Hemoglobin 7.2 L Oxyhemoglobin Sodium Potassium Chloride Carbon Dioxide BUN Creatinine Glucose POC Glucose 181 H 177 H Hemoglobin A1c Lactic Acid Calcium Ferritin AST ALT Alkaline Phosphatase Lactate Dehydrogenase C-Reactive Protein NT-Pro-B Natriuret Pep Albumin Salicylates Acetaminophen Crossmatch 05/17/19 05/17/19 05/17/19 05:43 05:43 15:15 WBC RBC 3.06 L Hgb 8.6 L Hct 26.1 L D MCH RDW Lymph % (Auto) 6.4 L Lymph # 0.5 L Seg Neutrophils % 87.5 H Seg Neutrophils # D-Dimer ABG pH ABG pO2 ABG HCO3 ABG O2 Saturation ABG Base Excess ABG Hemoglobin Oxyhemoglobin Sodium Potassium Chloride Carbon Dioxide 17 L BUN 76 H Creatinine 5.4 H Glucose 231 H POC Glucose 302 H Hemoglobin A1c Lactic Acid Calcium Ferritin AST ALT Alkaline Phosphatase Lactate Dehydrogenase C-Reactive Protein NT-Pro-B Natriuret Pep Albumin Salicylates Acetaminophen Crossmatch 05/17/19 05/18/19 05/18/19 18:44 00:04 05:35 WBC RBC Hgb Hct MCH RDW Lymph % (Auto) Lymph # Seg Neutrophils % Seg Neutrophils # D-Dimer ABG pH ABG pO2 ABG HCO3 ABG O2 Saturation ABG Base Excess ABG Hemoglobin Oxyhemoglobin Sodium Potassium Chloride Carbon Dioxide BUN Creatinine Glucose POC Glucose 258 H 331 H 329 H Hemoglobin A1c Lactic Acid Calcium Ferritin AST ALT Alkaline Phosphatase Lactate Dehydrogenase C-Reactive Protein NT-Pro-B Natriuret Pep Albumin Salicylates Acetaminophen Crossmatch 05/18/19 05/18/19 05/18/19 11:15 11:15 11:15 WBC RBC Hgb Hct MCH RDW Lymph % (Auto) Lymph # Seg Neutrophils % Seg Neutrophils # D-Dimer 5072.66 H ABG pH ABG pO2 ABG HCO3 ABG O2 Saturation ABG Base Excess ABG Hemoglobin Oxyhemoglobin Sodium 146 H Potassium Chloride Carbon Dioxide 18 L BUN 99 H Creatinine 6.1 H Glucose 346 H POC Glucose Hemoglobin A1c Lactic Acid Calcium Ferritin 975.6 H AST ALT < 5 L Alkaline Phosphatase Lactate Dehydrogenase C-Reactive Protein NT-Pro-B Natriuret Pep Albumin 3.0 L Salicylates Acetaminophen Crossmatch 05/18/19 05/18/19 05/18/19 11:15 11:55 18:11 WBC RBC Hgb Hct MCH RDW Lymph % (Auto) Lymph # Seg Neutrophils % Seg Neutrophils # D-Dimer ABG pH ABG pO2 ABG HCO3 ABG O2 Saturation ABG Base Excess ABG Hemoglobin Oxyhemoglobin Sodium Potassium Chloride Carbon Dioxide BUN Creatinine Glucose POC Glucose 334 H 397 H Hemoglobin A1c Lactic Acid Calcium Ferritin AST ALT Alkaline Phosphatase Lactate Dehydrogenase 483 H C-Reactive Protein 38.00 H NT-Pro-B Natriuret Pep Albumin Salicylates Acetaminophen Crossmatch 05/18/19 05/19/19 05/19/19 Unknown 00:30 05:07 WBC RBC Hgb Hct MCH RDW Lymph % (Auto) Lymph # Seg Neutrophils % Seg Neutrophils # D-Dimer ABG pH ABG pO2 133.0 H 61.1 L ABG HCO3 ABG O2 Saturation 94.4 L ABG Base Excess -2.9 L -2.7 L ABG Hemoglobin 8.3 L 8.0 L Oxyhemoglobin 92.2 L Sodium Potassium Chloride Carbon Dioxide BUN Creatinine Glucose POC Glucose 321 H Hemoglobin A1c Lactic Acid Calcium Ferritin AST ALT Alkaline Phosphatase Lactate Dehydrogenase C-Reactive Protein NT-Pro-B Natriuret Pep Albumin Salicylates Acetaminophen Crossmatch 05/19/19 05/19/19 05/19/19 05:17 12:23 15:02 WBC RBC Hgb Hct MCH RDW Lymph % (Auto) Lymph # Seg Neutrophils % Seg Neutrophils # D-Dimer ABG pH ABG pO2 ABG HCO3 ABG O2 Saturation ABG Base Excess ABG Hemoglobin Oxyhemoglobin Sodium 147 H Potassium Chloride 108.2 H Carbon Dioxide 16 L BUN 119 H Creatinine 8.5 H Glucose 315 H POC Glucose 235 H 298 H Hemoglobin A1c Lactic Acid Calcium 8.3 L Ferritin AST ALT Alkaline Phosphatase Lactate Dehydrogenase C-Reactive Protein NT-Pro-B Natriuret Pep Albumin Salicylates Acetaminophen Crossmatch 05/19/19 05/20/19 05/20/19 17:42 00:11 04:17 WBC RBC Hgb Hct MCH RDW Lymph % (Auto) Lymph # Seg Neutrophils % Seg Neutrophils # D-Dimer ABG pH 7.322 L ABG pO2 58.5 L ABG HCO3 18.9 L ABG O2 Saturation 91.0 L ABG Base Excess -6.5 L ABG Hemoglobin 7.0 L Oxyhemoglobin 88.2 L Sodium Potassium Chloride Carbon Dioxide BUN Creatinine Glucose POC Glucose 310 H 277 H Hemoglobin A1c Lactic Acid Calcium Ferritin AST ALT Alkaline Phosphatase Lactate Dehydrogenase C-Reactive Protein NT-Pro-B Natriuret Pep Albumin Salicylates Acetaminophen Crossmatch 05/20/19 05/20/19 05/20/19 05:29 09:06 09:06 WBC RBC Hgb Hct MCH RDW Lymph % (Auto) Lymph # Seg Neutrophils % Seg Neutrophils # D-Dimer 3193.32 H ABG pH ABG pO2 ABG HCO3 ABG O2 Saturation ABG Base Excess ABG Hemoglobin Oxyhemoglobin Sodium Potassium Chloride Carbon Dioxide BUN Creatinine Glucose POC Glucose 332 H Hemoglobin A1c Lactic Acid Calcium Ferritin 1802.0 H AST ALT Alkaline Phosphatase Lactate Dehydrogenase C-Reactive Protein NT-Pro-B Natriuret Pep Albumin Salicylates Acetaminophen Crossmatch 05/20/19 05/20/19 05/20/19 09:06 12:31 18:18 WBC RBC Hgb Hct MCH RDW Lymph % (Auto) Lymph # Seg Neutrophils % Seg Neutrophils # D-Dimer ABG pH ABG pO2 ABG HCO3 ABG O2 Saturation ABG Base Excess ABG Hemoglobin Oxyhemoglobin Sodium Potassium Chloride Carbon Dioxide BUN Creatinine Glucose POC Glucose 284 H 355 H Hemoglobin A1c Lactic Acid Calcium Ferritin AST ALT Alkaline Phosphatase Lactate Dehydrogenase 646 H C-Reactive Protein 56.30 H NT-Pro-B Natriuret Pep Albumin Salicylates Acetaminophen Crossmatch 05/20/19 05/21/19 05/21/19 23:43 05:04 05:05 WBC RBC Hgb Hct MCH RDW Lymph % (Auto) Lymph # Seg Neutrophils % Seg Neutrophils # D-Dimer ABG pH ABG pO2 54.1 L ABG HCO3 ABG O2 Saturation 88.4 L ABG Base Excess -4.0 L ABG Hemoglobin 6.9 L Oxyhemoglobin 85.5 L Sodium Potassium Chloride Carbon Dioxide BUN Creatinine Glucose POC Glucose 394 H 394 H Hemoglobin A1c Lactic Acid Calcium Ferritin AST ALT Alkaline Phosphatase Lactate Dehydrogenase C-Reactive Protein NT-Pro-B Natriuret Pep Albumin Salicylates Acetaminophen Crossmatch 05/21/19 05/21/19 05/21/19 12:14 17:41 23:25 WBC RBC Hgb Hct MCH RDW Lymph % (Auto) Lymph # Seg Neutrophils % Seg Neutrophils # D-Dimer ABG pH 7.281 L ABG pO2 61.2 L ABG HCO3 ABG O2 Saturation 91.6 L ABG Base Excess -4.8 L ABG Hemoglobin 6.2 L Oxyhemoglobin 88.9 L Sodium Potassium Chloride Carbon Dioxide BUN Creatinine Glucose POC Glucose 457 H 427 H Hemoglobin A1c Lactic Acid Calcium Ferritin AST ALT Alkaline Phosphatase Lactate Dehydrogenase C-Reactive Protein NT-Pro-B Natriuret Pep Albumin Salicylates Acetaminophen Crossmatch 05/21/19 05/22/19 05/22/19 23:45 04:35 04:48 WBC RBC Hgb Hct MCH RDW Lymph % (Auto) Lymph # Seg Neutrophils % Seg Neutrophils # D-Dimer ABG pH ABG pO2 ABG HCO3 ABG O2 Saturation ABG Base Excess ABG Hemoglobin Oxyhemoglobin Sodium Potassium Chloride Carbon Dioxide BUN Creatinine Glucose POC Glucose 453 H 470 H Hemoglobin A1c Lactic Acid Calcium Ferritin AST ALT Alkaline Phosphatase Lactate Dehydrogenase 978 H C-Reactive Protein 57.20 H NT-Pro-B Natriuret Pep Albumin Salicylates Acetaminophen Crossmatch 05/22/19 05/22/19 05/22/19 04:48 04:48 09:33 WBC 12.0 H RBC 2.47 L Hgb 7.0 L Hct 22.0 L MCH RDW 16.3 H Lymph % (Auto) Lymph # Seg Neutrophils % Seg Neutrophils # D-Dimer ABG pH 7.331 L ABG pO2 62.5 L ABG HCO3 ABG O2 Saturation 90.2 L ABG Base Excess -5.0 L ABG Hemoglobin 6.4 L Oxyhemoglobin 87.8 L Sodium Potassium Chloride Carbon Dioxide 17 L BUN 176 H Creatinine 12.0 H Glucose 493 H POC Glucose Hemoglobin A1c Lactic Acid Calcium Ferritin AST ALT Alkaline Phosphatase Lactate Dehydrogenase C-Reactive Protein NT-Pro-B Natriuret Pep Albumin Salicylates Acetaminophen Crossmatch 05/22/19 05/22/19 05/22/19 10:11 12:49 13:16 WBC RBC Hgb Hct MCH RDW Lymph % (Auto) Lymph # Seg Neutrophils % Seg Neutrophils # D-Dimer 3046.75 H ABG pH ABG pO2 ABG HCO3 ABG O2 Saturation ABG Base Excess ABG Hemoglobin Oxyhemoglobin Sodium Potassium Chloride Carbon Dioxide BUN Creatinine Glucose POC Glucose > 500 H Hemoglobin A1c Lactic Acid Calcium Ferritin 2525.0 H AST ALT Alkaline Phosphatase Lactate Dehydrogenase C-Reactive Protein NT-Pro-B Natriuret Pep Albumin Salicylates Acetaminophen Crossmatch 05/22/19 05/22/19 05/23/19 17:36 23:51 04:12 WBC RBC Hgb Hct MCH RDW Lymph % (Auto) Lymph # Seg Neutrophils % Seg Neutrophils # D-Dimer ABG pH ABG pO2 54.9 L ABG HCO3 ABG O2 Saturation 93.8 L ABG Base Excess -2.4 L ABG Hemoglobin 5.9 L Oxyhemoglobin 91.5 L Sodium Potassium Chloride Carbon Dioxide BUN Creatinine Glucose POC Glucose > 500 H 302 H Hemoglobin A1c Lactic Acid Calcium Ferritin AST ALT Alkaline Phosphatase Lactate Dehydrogenase C-Reactive Protein NT-Pro-B Natriuret Pep Albumin Salicylates Acetaminophen Crossmatch 05/23/19 05/23/19 05/23/19 05:45 13:38 17:07 WBC RBC Hgb Hct MCH RDW Lymph % (Auto) Lymph # Seg Neutrophils % Seg Neutrophils # D-Dimer ABG pH ABG pO2 ABG HCO3 ABG O2 Saturation ABG Base Excess ABG Hemoglobin Oxyhemoglobin Sodium Potassium Chloride Carbon Dioxide BUN Creatinine Glucose POC Glucose 279 H 269 H 205 H Hemoglobin A1c Lactic Acid Calcium Ferritin AST ALT Alkaline Phosphatase Lactate Dehydrogenase C-Reactive Protein NT-Pro-B Natriuret Pep Albumin Salicylates Acetaminophen Crossmatch 05/23/19 05/24/19 05/24/19 21:07 00:01 03:55 WBC RBC Hgb Hct MCH RDW Lymph % (Auto) Lymph # Seg Neutrophils % Seg Neutrophils # D-Dimer ABG pH 7.471 H ABG pO2 163.2 H ABG HCO3 ABG O2 Saturation 99.1 H ABG Base Excess ABG Hemoglobin 6.0 L Oxyhemoglobin Sodium Potassium Chloride Carbon Dioxide BUN Creatinine Glucose POC Glucose 274 H 260 H Hemoglobin A1c Lactic Acid Calcium Ferritin AST ALT Alkaline Phosphatase Lactate Dehydrogenase C-Reactive Protein NT-Pro-B Natriuret Pep Albumin Salicylates Acetaminophen Crossmatch 05/24/19 05/24/19 05/24/19 05:00 05:00 05:00 WBC RBC Hgb Hct MCH RDW Lymph % (Auto) Lymph # Seg Neutrophils % Seg Neutrophils # D-Dimer 2422.36 H ABG pH ABG pO2 ABG HCO3 ABG O2 Saturation ABG Base Excess ABG Hemoglobin Oxyhemoglobin Sodium Potassium Chloride Carbon Dioxide BUN Creatinine Glucose POC Glucose Hemoglobin A1c Lactic Acid Calcium Ferritin 3849.0 H AST ALT Alkaline Phosphatase Lactate Dehydrogenase 904 H C-Reactive Protein 44.40 H NT-Pro-B Natriuret Pep Albumin Salicylates Acetaminophen Crossmatch 05/24/19 05/24/19 05/24/19 05:00 05:00 05:29 WBC 17.2 H RBC 2.16 L Hgb 5.9 L* Hct 18.1 L* MCH 27 L RDW 15.3 H Lymph % (Auto) Lymph # Seg Neutrophils % Seg Neutrophils # D-Dimer ABG pH ABG pO2 ABG HCO3 ABG O2 Saturation ABG Base Excess ABG Hemoglobin Oxyhemoglobin Sodium Potassium 3.5 L D Chloride 93.4 L Carbon Dioxide 21 L BUN 97 H Creatinine 7.9 H Glucose 312 H POC Glucose 339 H Hemoglobin A1c Lactic Acid Calcium Ferritin AST ALT Alkaline Phosphatase Lactate Dehydrogenase C-Reactive Protein NT-Pro-B Natriuret Pep Albumin Salicylates Acetaminophen Crossmatch 05/24/19 05/24/19 05/24/19 08:45 12:48 18:05 WBC RBC Hgb Hct MCH RDW Lymph % (Auto) Lymph # Seg Neutrophils % Seg Neutrophils # D-Dimer ABG pH ABG pO2 ABG HCO3 ABG O2 Saturation ABG Base Excess ABG Hemoglobin Oxyhemoglobin Sodium Potassium Chloride Carbon Dioxide BUN Creatinine Glucose POC Glucose 270 H 154 H Hemoglobin A1c Lactic Acid Calcium Ferritin AST ALT Alkaline Phosphatase Lactate Dehydrogenase C-Reactive Protein NT-Pro-B Natriuret Pep Albumin Salicylates Acetaminophen Crossmatch See Detail 05/24/19 05/25/19 05/25/19 23:49 04:00 04:01 WBC 14.9 H RBC 3.62 L Hgb 9.8 L D Hct 29.3 L D MCH 27 L RDW Lymph % (Auto) Lymph # Seg Neutrophils % Seg Neutrophils # D-Dimer ABG pH ABG pO2 52.6 L ABG HCO3 ABG O2 Saturation 87.6 L ABG Base Excess ABG Hemoglobin 11.5 L Oxyhemoglobin 85.7 L Sodium Potassium Chloride Carbon Dioxide BUN Creatinine Glucose POC Glucose 199 H Hemoglobin A1c Lactic Acid Calcium Ferritin AST ALT Alkaline Phosphatase Lactate Dehydrogenase C-Reactive Protein NT-Pro-B Natriuret Pep Albumin Salicylates Acetaminophen Crossmatch 05/25/19 05/25/19 05/25/19 04:01 05:41 08:33 WBC RBC Hgb Hct MCH RDW Lymph % (Auto) Lymph # Seg Neutrophils % Seg Neutrophils # D-Dimer ABG pH 7.459 H ABG pO2 56.8 L ABG HCO3 ABG O2 Saturation 89.8 L ABG Base Excess ABG Hemoglobin 9.2 L Oxyhemoglobin 87.8 L Sodium Potassium 2.8 L* Chloride 96.4 L Carbon Dioxide BUN 59 H Creatinine 5.2 H Glucose 147 H POC Glucose 127 H Hemoglobin A1c Lactic Acid Calcium Ferritin AST 128 H ALT Alkaline Phosphatase 142 H Lactate Dehydrogenase C-Reactive Protein NT-Pro-B Natriuret Pep Albumin 2.9 L Salicylates Acetaminophen Crossmatch 05/25/19 05/25/19 05/25/19 12:03 13:36 17:13 WBC RBC Hgb Hct MCH RDW Lymph % (Auto) Lymph # Seg Neutrophils % Seg Neutrophils # D-Dimer ABG pH ABG pO2 ABG HCO3 ABG O2 Saturation ABG Base Excess ABG Hemoglobin Oxyhemoglobin Sodium Potassium Chloride Carbon Dioxide BUN Creatinine Glucose POC Glucose 42 L 108 H 168 H Hemoglobin A1c Lactic Acid Calcium Ferritin AST ALT Alkaline Phosphatase Lactate Dehydrogenase C-Reactive Protein NT-Pro-B Natriuret Pep Albumin Salicylates Acetaminophen Crossmatch 05/25/19 05/26/19 05/26/19 23:43 03:43 03:43 WBC 20.3 H RBC 3.56 L Hgb 9.7 L Hct 29.4 L MCH 27 L RDW Lymph % (Auto) Lymph # Seg Neutrophils % Seg Neutrophils # D-Dimer ABG pH ABG pO2 ABG HCO3 ABG O2 Saturation ABG Base Excess ABG Hemoglobin Oxyhemoglobin Sodium Potassium Chloride Carbon Dioxide 18 L BUN 85 H Creatinine 7.6 H Glucose 229 H POC Glucose 266 H Hemoglobin A1c Lactic Acid Calcium Ferritin AST ALT Alkaline Phosphatase Lactate Dehydrogenase C-Reactive Protein NT-Pro-B Natriuret Pep Albumin Salicylates Acetaminophen Crossmatch 05/26/19 05/26/19 05/26/19 03:43 03:56 04:51 WBC RBC Hgb Hct MCH RDW Lymph % (Auto) Lymph # Seg Neutrophils % Seg Neutrophils # D-Dimer ABG pH ABG pO2 71.9 L ABG HCO3 19.6 L ABG O2 Saturation ABG Base Excess -3.9 L ABG Hemoglobin 9.7 L Oxyhemoglobin 93.6 L Sodium Potassium Chloride Carbon Dioxide BUN Creatinine Glucose POC Glucose 222 H Hemoglobin A1c Lactic Acid Calcium Ferritin AST ALT Alkaline Phosphatase Lactate Dehydrogenase 925 H C-Reactive Protein 22.20 H NT-Pro-B Natriuret Pep Albumin Salicylates Acetaminophen Crossmatch 05/26/19 11:53 WBC RBC Hgb Hct MCH RDW Lymph % (Auto) Lymph # Seg Neutrophils % Seg Neutrophils # D-Dimer ABG pH ABG pO2 ABG HCO3 ABG O2 Saturation ABG Base Excess ABG Hemoglobin Oxyhemoglobin Sodium Potassium Chloride Carbon Dioxide BUN Creatinine Glucose POC Glucose 212 H Hemoglobin A1c Lactic Acid Calcium Ferritin AST ALT Alkaline Phosphatase Lactate Dehydrogenase C-Reactive Protein NT-Pro-B Natriuret Pep Albumin Salicylates Acetaminophen Crossmatch Allied health notes reviewed: nursing
--- NOTE | 2019-05-26 14:42 | Progress Note ---
Assessment and Plan - Patient Problems (1) CKD (chronic kidney disease) stage 5, GFR less than 15 ml/min Current Visit: No Status: Acute Plan to address problem: With worsening renal parameters, we initiated HD. Discussed with vascular surgery, and we had vascath placed for initiation as her new AVG has not matured for use at this time. Placed HD orders for 3 consecutive days. Plan for next HD session today. (2) Acute encephalopathy Current Visit: Yes Status: Acute Plan to address problem: With worsening renal clearance, concerned that uremic can also be contributing to her metal status along with her severe sepsis in the setting of COVID-19 pneu monia Per nursing staff, she has been more awake and somewhat alert. Will continue to monitor. (3) Acute respiratory failure Current Visit: Yes Status: Acute Qualifiers: Respiratory failure complication: hypoxia Qualified Code(s): J96.01 - Acute respiratory failure with hypoxia Plan to address problem: Management per primary attending/ICU team. (4) Pneumonia due to COVID-19 virus Current Visit: Yes Status: Acute Plan to address problem: Management per ID recommendations. (5) Hypertensive chronic kidney disease with stage 5 chronic kidney disease or end stage renal disease Current Visit: Yes Status: Chronic Plan to address problem: Off all blood pressure medications at this time. Patient was restarted on levophed gtt Will monitor closely (6) Type 2 diabetes mellitus with diabetic chronic kidney disease Current Visit: Yes Status: Chronic Plan to address problem: DM management per primary attending. (7) Anemia in CKD (chronic kidney disease) Current Visit: Yes Status: Acute Qualifiers: Chronic kidney disease stage: stage 5, not on chronic dialysis Qualified Code(s): N18.5 - Chronic kidney disease, stage 5; D63.1 - Anemia in chronic kidney disease Plan to address problem: Transfusion orders placed by PCP yesterday Transfuse to maintain Hgb> 7.0. Recommend to transfuse while on HD so as to minimize fluid overload. Subjective Date of service: 05/26/19 Principal diagnosis: Ac hypoxemic resp failure; Hakeem pneumonia; Sepsis; COVID-19 infection; ESRD Interval history: Patient seen earlier this am. Started on pressors. Plan for HD today. PUI?: Yes COVID19: Pending Objective - Vital Signs Vital signs: Vital Signs - 12hr 05/26/19 05/26/19 05/26/19 02:45 03:00 03:15 Temperature Pulse Rate 102 H 102 H 111 H Pulse Rate [ From Monitor] Respiratory 22 31 H 30 H Rate Blood Pressure 114/59 106/60 97/55 O2 Sat by Pulse 97 96 96 Oximetry 05/26/19 05/26/19 05/26/19 03:30 03:45 04:00 Temperature Pulse Rate 102 H 100 H 104 H Pulse Rate [ From Monitor] Respiratory 29 H 27 H 32 H Rate Blood Pressure 112/67 98/58 95/60 O2 Sat by Pulse 96 95 95 Oximetry 05/26/19 05/26/19 05/26/19 04:15 04:30 04:41 Temperature Pulse Rate 103 H 101 H 103 H Pulse Rate [ From Monitor] Respiratory 30 H 29 H Rate Blood Pressure 88/58 93/62 93/62 O2 Sat by Pulse 94 95 94 Oximetry 05/26/19 05/26/19 05/26/19 04:45 05:00 05:15 Temperature 98.4 F Pulse Rate 103 H 108 H 101 H Pulse Rate [ From Monitor] Respiratory 33 H 26 H 26 H Rate Blood Pressure 91/61 101/64 151/73 O2 Sat by Pulse 95 95 98 Oximetry 05/26/19 05/26/19 05/26/19 05:31 05:45 06:01 Temperature Pulse Rate 103 H 103 H 99 H Pulse Rate [ From Monitor] Respiratory 36 H 35 H 33 H Rate Blood Pressure 111/94 81/43 83/48 O2 Sat by Pulse 94 91 93 Oximetry 05/26/19 05/26/19 05/26/19 06:15 06:31 06:45 Temperature Pulse Rate 108 H 98 H 110 H Pulse Rate [ From Monitor] Respiratory 34 H 35 H 36 H Rate Blood Pressure 83/48 83/48 83/48 O2 Sat by Pulse 93 95 94 Oximetry 05/26/19 05/26/19 05/26/19 07:00 07:15 07:31 Temperature Pulse Rate 105 H 99 H 95 H Pulse Rate [ From Monitor] Respiratory 35 H 33 H 32 H Rate Blood Pressure 98/64 83/48 83/48 O2 Sat by Pulse 95 94 95 Oximetry 05/26/19 05/26/19 05/26/19 07:45 08:00 08:01 Temperature 99.2 F Pulse Rate 95 H 99 H 94 H Pulse Rate [ 94 H From Monitor] Respiratory 30 H 31 H 31 H Rate Blood Pressure 83/48 83/48 83/48 O2 Sat by Pulse 95 95 95 Oximetry 05/26/19 05/26/19 05/26/19 08:15 08:31 08:45 Temperature Pulse Rate 93 H 92 H 93 H Pulse Rate [ From Monitor] Respiratory 25 H 34 H 34 H Rate Blood Pressure 83/48 83/48 85/43 O2 Sat by Pulse 95 95 95 Oximetry 05/26/19 05/26/19 05/26/19 09:01 09:15 09:30 Temperature Pulse Rate 100 H 103 H 105 H Pulse Rate [ From Monitor] Respiratory 35 H 35 H 35 H Rate Blood Pressure 115/62 93/52 104/56 O2 Sat by Pulse 97 97 98 Oximetry 05/26/19 05/26/19 05/26/19 09:45 10:00 10:15 Temperature Pulse Rate 95 H 95 H 95 H Pulse Rate [ From Monitor] Respiratory 36 H 35 H 30 H Rate Blood Pressure 100/58 107/57 90/52 O2 Sat by Pulse 99 99 98 Oximetry 05/26/19 05/26/19 05/26/19 10:30 10:45 11:00 Temperature Pulse Rate 93 H 90 94 H Pulse Rate [ From Monitor] Respiratory 34 H 18 33 H Rate Blood Pressure 100/55 99/45 125/70 O2 Sat by Pulse 98 96 98 Oximetry 05/26/19 05/26/19 05/26/19 11:15 11:30 11:45 Temperature Pulse Rate 97 H 97 H 95 H Pulse Rate [ From Monitor] Respiratory 34 H 32 H 24 Rate Blood Pressure 139/74 141/76 121/65 O2 Sat by Pulse 98 97 98 Oximetry 05/26/19 05/26/19 05/26/19 12:00 12:15 12:30 Temperature Pulse Rate 94 H 93 H 92 H Pulse Rate [ From Monitor] Respiratory 51 H 32 H 31 H Rate Blood Pressure 97/52 91/53 92/45 O2 Sat by Pulse 97 96 98 Oximetry 05/26/19 05/26/19 05/26/19 12:45 13:00 13:15 Temperature Pulse Rate 104 H 114 H 111 H Pulse Rate [ From Monitor] Respiratory 35 H 37 H Rate Blood Pressure 153/83 128/71 116/60 O2 Sat by Pulse 99 95 Oximetry 05/26/19 05/26/19 13:30 13:40 Temperature Pulse Rate 170 H 172 H Pulse Rate [ From Monitor] Respiratory Rate Blood Pressure 105/54 94/65 O2 Sat by Pulse Oximetry - General Appearance General appearance: chronically ill, intubated, frail EENT: ATNC Neck: no JVD Respiratory: Present: Decreased Breath Sounds Cardiology: regular Gastrointestinal: normal Integumentary: no rash Musculoskeletal: deferred - Lab 05/26/19 03:43 05/26/19 03:43 Most recent lab results ABG pH 7.436 pH Units (7.350-7.450) 05/26/19 03:56 ABG pCO2 29.8 mm Hg 05/26/19 03:56 ABG pO2 71.9 mm Hg (80.0-90.0) L 05/26/19 03:56 ABG HCO3 19.6 mmol/L (20.0-26.0) L 05/26/19 03:56 ABG O2 Saturation 95.3 % (95.0-99.0) 05/26/19 03:56 Calcium 9.0 mg/dL (8.4-10.2) 05/26/19 03:43 - Allied health notes Allied health notes reviewed: nursing Medications & Allergies - Medications Allergies/Adverse Reactions: Allergies No Known Allergies Allergy (Unverified 05/10/19 15:33) Home Medications: Home Medications Medication Instructions Recorded Confirmed Last Taken Type Aspirin [Adult Aspirin] 81 mg PO DAILY 05/10/19 05/20/19 05/11/19 History Cyanocobalamin (Vitamin B-12) 2,500 mcg PO DAILY 05/10/19 05/20/19 05/11/19 History [Vitamin B12] Ferrous Sulfate [Feosol 325 MG tab] 325 mg PO DAILY 05/10/19 05/20/19 05/11/19 History Gabapentin 100 mg PO TID 05/10/19 05/20/19 05/11/19 History Insulin Aspart (Nf) [NovoLOG 100 10 unit SQ TIDAC 05/10/19 05/20/19 05/11/19 History UNITS/ML VIAL] Insulin Glargine [Lantus VIAL] 36 unit SQ QAM 05/10/19 05/20/19 05/11/19 History Tizanidine HCl [Tizanidine 2mg tab] 2 mg PO DAILY 05/10/19 05/20/19 05/11/19 History Torsemide [Demadex] 20 mg PO BID 05/10/19 05/20/19 05/11/19 History amLODIPine 10 mg PO BID 05/10/19 05/20/19 05/12/19 04:30 History calcitrioL [Rocaltrol] 0.5 mcg PO DAILY 05/10/19 05/20/19 05/11/19 History carvediloL [Coreg] 12.5 mg PO BID 05/10/19 05/20/19 05/12/19 04:30 History oxyCODONE /ACETAMINOPHEN [Percocet 1 tab PO Q6HR PRN #24 tablet 05/12/19 05/20/19 Unknown Rx 5/325 mg] Active Medications: Generic Name Dose Route Start Last Admin Trade Name Freq PRN Reason Stop Dose Admin Acetaminophen 650 mg 05/15/19 23:04 05/21/19 16:17 Tylenol PO 650 mg Q4H PRN Administration Pain MILD(1-3)/Fever >100.5/MELVIN Acetaminophen 650 mg 05/16/19 01:28 05/16/19 01:44 Tylenol ND 650 mg Q6H PRN Administration TEMP > 100.3 Lipase/Protease/Amylase 1 each 05/16/19 11:14 Pancreaze 10,500 Unit FEEDTUBE PRN PRN For Clogged Feeding Tube Dextrose 25 ml 05/25/19 13:00 05/25/19 12:20 D50w (25gm) Syringe IV 25 ml Q30MIN PRN Administration BLOOD GLUCOSE </=80 Famotidine 20 mg 05/18/19 10:00 05/26/19 09:23 Pepcid PO 20 mg DAILY LUIS M Administration Heparin Sodium (Porcine) 5,000 unit 05/24/19 22:00 05/26/19 09:23 Heparin SUB-Q 5,000 unit Q12HR LUIS M Administration Hydromorphone HCl 0.25 mg 05/15/19 23:04 05/25/19 12:22 Dilaudid IV 0.25 mg Q3H PRN Administration Pain, Moderate (4-6) Hydrophilic Ointment 1 applic 05/15/19 09:48 Vaseline Lip Therapy TP Q2HR PRN Dry Lips Propofol 1,000 mg in 100 mls @ 2.585 mls/hr 05/15/19 11:00 05/26/19 08:38 Diprivan 10 Mg/Ml IV 15 mcg/kg/min TITR LUIS M 7.756 mls/hr Administration Protocol 5 MCG/KG/MIN Ceftriaxone Sodium 2 gm in 100 mls @ 200 mls/hr 05/21/19 11:00 05/26/19 09:23 Rocephin/Ns 2 Gm/100 Ml IV 05/27/19 10:29 200 mls/hr Q24HR LUIS M Administration Protocol Norepinephrine 4 mg in 250 mls @ 18.75 mls/hr 05/21/19 23:45 05/26/19 11:32 Levophed Drip 4 Mg/Ns 250 Ml IV 2 mcg/min TITR LUIS M 7.5 mls/hr Titration Protocol 5 MCG/MIN Sodium Chloride 100 mls @ 999 mls/hr 05/26/19 09:30 Nacl 0.9% IV COBY PRN Hypotension Insulin Human Lispro 0 unit 05/16/19 00:00 05/26/19 11:44 Humalog SUB-Q 4 unit Q6HR LUIS M Administration Protocol Metoclopramide HCl 5 mg 05/15/19 23:24 Reglan IV Q6H PRN Nausea And Vomiting Metoclopramide HCl 5 mg 05/25/19 14:00 05/26/19 14:13 Reglan IV 5 mg Q8HR LUIS M Administration Multi-Ingred Cream/Lotion/Oil/Oint 1 applic 05/15/19 09:48 05/25/19 18:29 Artificial Tears Ophth Oint OU 1 applic Q4HR PRN Administration Dry Eye(s) Ondansetron HCl 4 mg 05/15/19 23:04 05/19/19 18:30 Zofran IV 4 mg Q8H PRN Administration Nausea And Vomiting Simple Syrup 15 ml 05/16/19 11:14 Simple Syrup FEEDTUBE PRN PRN Hypoglycemia Simple Syrup 30 ml 05/16/19 11:14 Simple Syrup FEEDTUBE PRN PRN Hypoglycemia Sodium Bicarbonate 325 mg 05/16/19 11:14 Sodium Bicarbonate FEEDTUBE PRN PRN For Clogged Feeding Tube Sodium Bicarbonate 650 mg 05/21/19 15:00 05/26/19 14:13 Sodium Bicarbonate PO 650 mg TID LUIS M Administration Sodium Chloride 10 ml 05/16/19 10:00 05/26/19 09:24 Sodium Chloride Flush Syringe 10 Ml IV 10 ml BID LUIS M Administration Sodium Chloride 10 ml 05/15/19 23:04 Sodium Chloride Flush Syringe 10 Ml IV PRN PRN LINE FLUSH
[2019-05-26] MEDS ORDERED: ADENOSINE 6 MG/2 ML INJ IV ONE ×4 (17:23→17:46)
[2019-05-26] MEDS: INSULIN GLARGINE 100 UNITS/ML SUB-Q SCH (20:34)
[2019-05-26] MEDS: INSULIN REGULAR, HUMAN 100 UNITS/1 ML SUB-Q SCH (20:34)
[2019-05-27] MEDS: INSULIN LISPRO 100 UNIT/ML SUB-Q SCH ×4 (00:24→18:36)
[2019-05-27] MEDS: METOCLOPRAMIDE 10 MG/2 ML INJ IV SCH ×3 (05:22→21:36)
[2019-05-27 06:24] LABS: ABG HCO3 18.3 mmol/L (20.0-26.0); ABG Methemoglobin 0.5 % (0.0-1.5); ABG PCO2 31.9 mm Hg; ABG PH 7.377 pH Units (7.350-7.450); ABG PO2 111.2 mm Hg (80.0-90.0)
--- NOTE | 2019-05-27 08:29 | Progress Note ---
Assessment and Plan Assessment and plan: --Covid-19 confirmed Covid19 paperwork completed by ED F/U ferritin, LDH, D-Dimer and CRP --Acute hypoxic respiratory failure; requiring intubation On ventilatory support, nebulizers Supportive care, pulmonary critical following Wean as tolerated per pulm --Bilateral patchy groundglass opacities/pneumonia Isolation precautions, cultures ID following --Acute metabolic encephalopathy; Present on admission, probably secondary to hypoxemia --Infected AV graft for dialysis; IV antibiotics, vascular,ID following --End-stage renal disease on hemodialysis; HD per schedulen nephrology following --Type 2 diabetes mellitus; moderate control Accu-Chek sliding scale coverage ADA diet and insulin as needed HbA1c 7.7 --Moderate malnutrition/hypoalbuminemia Due to underlying disease process, nutrition supplements Nutrition consult as needed --Lactic acidosis; rule out infections Supportive care --DVT prophylaxis; Lovenox --Obesity BMI 31.6; Patient needs weight reduction when medically stable Anemia Hgb 5.9. Transfuse 2 units PRBC and repeat obtain stool occult blood --Full CODE STATUS; Monitor closely and adjust management as needed Very poor prognosis Plan of care reviewed with the patient's nurse 05/18/2019 Covid-19 confirmed Patient currently with AC mode, rate20, tidal volume 450, FiO2 50% and PEEP 6. Continue hydroxychloroquine 400 mg p.o. twPatient is critically ill with poor prognosis. Wean as tolerated per pulmonarice daily x1 day then 200 mg p.o. x 4 twice daily for 5 days. Continue cefepime per ID. Follow-up inflammatory markers of ferritin, LDH, d-dimer and CRP. 05/19/19 Patient currently with AC mode, rate20, tidal volume 450, FiO2 50% and PEEP 6. Patient is critically ill with poor prognosis. Continue Plaquenil 200 mg p.o. x 4 twice daily for 5 days. Continue cefepime per ID. Follow-up inflammatory markers of ferritin, LDH, d-dimer and CRP. Discussed confirmed positive test with daughter 05/20/2019. Continue Plaquenil taper per ID recommendations. Continue mechanical ventilation with AC mode, rate 14, tidal volume 450 and PEEP 6. Follow-up inflammatory markers of ferritin, LDH, d-dimer and CRP. 05/21/2019. Patient remains critically ill on mechanical ventilation AC mode with rate 14, tidal volume 450, FiO2 40% and PEEP of 6. Patient has strep pneumonia in sputum and likely has bacterial pneumonia exacerbated with COVID-19. Ferritin and LDH elevated but d-dimer decreased. Follow-up repeat chest x-ray. Continue antibiotics per IDceftriaxone. Continue Plaquenil/zinc. Continue CO VID isolation precautions. Follow-up inflammatory markers. Patient with poor prognosis and high risk mortality. 05/22/2019. Patient remains critically ill on mechanical ventilation AC mode with rate 25, tidal volume 450, FiO2 65% and PEEP of 8. Patient has strep pneumonia in sputum and likely has bacterial pneumonia exacerbated with COVID-19. Ferritin and LDH elevated but d-dimer decreased. Follow-up repeat chest x-ray. Continue antibiotics per IDceftriaxone. Continue Plaquenil/zinc. Continue COVID isolation precautions. Follow-up inflammatory markers. Continue hemodialysis per nephrology and evaluate on a daily basis. Patient with poor prognosis and high risk mortality. 05/23/2019 patient with covid-19 infection. She is critically ill, still intubated on vent. 05/24/2019 patient hgb 5.9. Transfuse 2 Units PRBC. I discussed this with Nurse. She is still critically ill, intubated 05/25/2019 patient transfused 2 units PRBC, hgb now 9.8. Off levophed. 05/26/19 Patient still critically ill, still intubated, on vent, Continue Levophed. 05/27/19 patient had SVT yesterday in evening, treated with Adenosine iv. The high probability of a clinically significant, sudden or life threatening deterioration of the [immunologic and respiratory] system(s) required my full and direct attention, intervention and personal management. The aggregate critical care time was [33] minutes. This time is in addition to time spent performing reported procedures but includes the following: [x] Data Review and interpretation [x] Patient assessment and monitoring of vital signs [x] Documentation [x] Medication orders and management History Interval history: Patient with Covid-19 infection, fever Patient had SVT yesterday treated with Adenosine PUI?: Yes COVID19: Pending Hospitalist Physical - Physical exam Narrative exam: GEN: Not in acute distress, obese HEENT: Normocephalic, atraumatic, Neck: supple, No JVD Lungs: Clear to auscultation bilaterally heart;S1 and S2 reg, no murmurs, rubs or gallop Abd:soft, non tender, non distended, normal bowel sounds, Ext: No edema, no clubbing, no cyanosis, Neuro: Intubated - Constitutional Vitals: Temp Pulse Resp BP Pulse Ox 99.1 F 161 H 30 H 93/53 96 05/27/19 03:53 05/27/19 06:45 05/27/19 06:45 05/27/19 06:45 05/27/19 06:45 General appearance: Present: other (Currently on a ventilator and sedated) Results - Labs CBC & Chem 7: 05/26/19 03:43 05/26/19 03:43 Labs: Laboratory Last Values WBC 20.3 K/mm3 (4.5-11.0) H 05/26/19 03:43 RBC 3.56 M/mm3 (3.65-5.03) L 05/26/19 03:43 Hgb 9.7 gm/dl (10.1-14.3) L 05/26/19 03:43 Hct 29.4 % (30.3-42.9) L 05/26/19 03:43 MCV 82 fl (79-97) 05/26/19 03:43 MCH 27 pg (28-32) L 05/26/19 03:43 MCHC 33 % (30-34) 05/26/19 03:43 RDW 15.1 % (13.2-15.2) 05/26/19 03:43 Plt Count 265 K/mm3 (140-440) 05/26/19 03:43 Lymph % (Auto) 6.4 % (13.4-35.0) L 05/17/19 05:43 [place] % (Auto) 4.9 % (0.0-7.3) 05/17/19 05:43 Eos % (Auto) 0.9 % (0.0-4.3) 05/17/19 05:43 Baso % (Auto) 0.3 % (0.0-1.8) 05/17/19 05:43 Lymph # 0.5 K/mm3 (1.2-5.4) L 05/17/19 05:43 [place] # 0.4 K/mm3 (0.0-0.8) 05/17/19 05:43 Eos # 0.1 K/mm3 (0.0-0.4) 05/17/19 05:43 Baso # 0.0 K/mm3 (0.0-0.1) 05/17/19 05:43 Seg Neutrophils % 87.5 % (40.0-70.0) H 05/17/19 05:43 Seg Neutrophils # 7.2 K/mm3 (1.8-7.7) 05/17/19 05:43 D-Dimer 7143.61 ng/mlDDU (0-234) H 05/26/19 21:48 Heparin Anti-Xa Level 0.54 U.I./ml (0.3-0.7) 05/24/19 08:45 ABG pH 7.377 pH Units (7.350-7.450) 05/27/19 Unknown ABG pCO2 31.9 mm Hg 05/27/19 Unknown ABG pO2 111.2 mm Hg (80.0-90.0) H 05/27/19 Unknown ABG HCO3 18.3 mmol/L (20.0-26.0) L 05/27/19 Unknown ABG O2 Saturation 98.0 % (95.0-99.0) 05/27/19 Unknown ABG O2 Content 12.7 (0.0-44) 05/27/19 Unknown ABG Base Excess -6.0 mmol/L (-2.0-3.0) L 05/27/19 Unknown ABG Hemoglobin 9.3 gm/dl (12.0-16.0) L 05/27/19 Unknown ABG Carboxyhemoglobin 1.2 % (0.0-5.0) 05/27/19 Unknown ABG Methemoglobin 0.5 % (0.0-1.5) 05/27/19 Unknown Oxyhemoglobin 96.3 % (95.0-99.0) 05/27/19 Unknown FiO2 70 % 05/27/19 Unknown Sodium 142 mmol/L (137-145) 05/26/19 03:43 Potassium 3.6 mmol/L (3.6-5.0) D 05/26/19 03:43 Chloride 100.2 mmol/L (98-107) 05/26/19 03:43 Carbon Dioxide 18 mmol/L (22-30) L 05/26/19 03:43 Anion Gap 27 mmol/L 05/26/19 03:43 BUN 85 mg/dL (7-17) H 05/26/19 03:43 Creatinine 7.6 mg/dL (0.7-1.2) H 05/26/19 03:43 Estimated GFR 7 ml/min 05/26/19 03:43 BUN/Creatinine Ratio 11 % 05/26/19 03:43 Glucose 229 mg/dL (65-100) H 05/26/19 03:43 POC Glucose 338 (70-105) H 05/27/19 05:20 Hemoglobin A1c 7.7 % (4-6) H 05/15/19 Unknown Lactic Acid 1.40 mmol/L (0.7-2.0) 05/15/19 11:41 Calcium 9.0 mg/dL (8.4-10.2) 05/26/19 03:43 Ferritin > 2000.0 ng/mL (13.0-400.0) H 05/26/19 21:48 Total Bilirubin 0.30 mg/dL (0.1-1.2) 05/25/19 04:01 AST 128 units/L (5-40) H 05/25/19 04:01 ALT 43 units/L (7-56) 05/25/19 04:01 Alkaline Phosphatase 142 units/L (35-129) H 05/25/19 04:01 Lactate Dehydrogenase 925 units/L (91-180) H 05/26/19 03:43 C-Reactive Protein 22.20 mg/dL (0.00-1.30) H 05/26/19 03:43 NT-Pro-B Natriuret Pep 7240 pg/mL (0-900) H 05/15/19 09:11 Total Protein 7.7 g/dL (6.3-8.2) 05/25/19 04:01 Albumin 2.9 g/dL (3.9-5) L 05/25/19 04:01 Albumin/Globulin Ratio 0.6 % 05/25/19 04:01 Procalcitonin 21.80 ng/mL (<0.15) 05/24/19 05:00 Urine Color Straw (Yellow) 05/15/19 12:07 Urine Turbidity Clear (Clear) 05/15/19 12:07 Urine pH 7.0 (5.0-7.0) 05/15/19 12:07 Ur Specific [place] 1.009 (1.003-1.030) 05/15/19 12:07 Urine Protein 100 mg/dl mg/dL (Negative) 05/15/19 12:07 Urine Glucose (UA) >=500 mg/dL (Negative) 05/15/19 12:07 Urine Ketones Neg mg/dL (Negative) 05/15/19 12:07 Urine Blood Sm (Negative) 05/15/19 12:07 Urine Nitrite Neg (Negative) 05/15/19 12:07 Urine Bilirubin Neg (Negative) 05/15/19 12:07 Urine Urobilinogen < 2.0 mg/dL (<2.0) 05/15/19 12:07 Ur Leukocyte Esterase Neg (Negative) 05/15/19 12:07 Urine WBC (Auto) 3.0 /HPF (0.0-6.0) 05/15/19 12:07 Urine RBC (Auto) 18.0 /HPF (0.0-6.0) 05/15/19 12:07 Urine Mucus Few /HPF 05/15/19 12:07 Random Vancomycin 11.9 ug/mL (0-40.0) 05/17/19 14:57 Salicylates < 0.3 mg/dL (2.8-20.0) L 05/15/19 13:10 Acetaminophen < 5.0 ug/mL (10.0-30.0) L 05/15/19 13:10 Hepatitis A IgM Ab Non-reactive (NonReactive) 05/22/19 10:50 Hep Bs Antigen Non-reactive (Negative) 05/22/19 10:50 Hep B Core IgM Ab Non-reactive (NonReactive) 05/22/19 10:50 Hepatitis C Antibody Non-reactive (NonReactive) 05/22/19 10:50 Miscellaneous Test See scanned result 05/16/19 Unknown Blood Type O POSITIVE 05/24/19 08:45 Antibody Screen Negative 05/24/19 08:45 Crossmatch See Detail 05/24/19 08:45 Castellanos/IV: Voiding Method Indwelling Catheter IV Catheter Type [Right VAS Cath Femoral] IV Catheter Type [Left INT / Saline Lock External Jugular] IV Catheter Type [Right Wrist] INT / Saline Lock IV Catheter Type [Right INT / Saline Lock External Jugular] Active Medications - Current Medications Current Medications: Generic Name Dose Route Start Last Admin Trade Name Freq PRN Reason Stop Dose Admin Acetaminophen 650 mg 05/15/19 23:04 05/21/19 16:17 Tylenol PO 650 mg Q4H PRN Administration Pain MILD(1-3)/Fever >100.5/MELVIN Acetaminophen 650 mg 05/16/19 01:28 05/16/19 01:44 Tylenol OR 650 mg Q6H PRN Administration TEMP > 100.3 Lipase/Protease/Amylase 1 each 05/16/19 11:[address] 10,500 Unit FEEDTUBE PRN PRN For Clogged Feeding Tube Dextrose 25 ml 05/25/19 13:00 05/25/19 12:20 D50w (25gm) Syringe IV 25 ml Q30MIN PRN Administration BLOOD GLUCOSE </=80 Famotidine 20 mg 05/18/19 10:00 05/26/19 09:23 Pepcid PO 20 mg DAILY LUIS M Administration Heparin Sodium (Porcine) 5,000 unit 05/24/19 22:00 05/26/19 21:37 Heparin SUB-Q 5,000 unit Q12HR LUIS M Administration Hydromorphone HCl 0.25 mg 05/15/19 23:04 05/25/19 12:22 Dilaudid IV 0.25 mg Q3H PRN Administration Pain, Moderate (4-6) Hydrophilic Ointment 1 applic 05/15/19 09:48 Vaseline Lip Therapy TP Q2HR PRN Dry Lips Propofol 1,000 mg in 100 mls @ 2.585 mls/hr 05/15/19 11:00 05/27/19 06:25 Diprivan 10 Mg/Ml IV 20 mcg/kg/min TITR LUIS M 10.342 mls/hr Administration Protocol 5 MCG/KG/MIN Ceftriaxone Sodium 2 gm in 100 mls @ 200 mls/hr 05/21/19 11:00 05/26/19 20:34 Rocephin/Ns 2 Gm/100 Ml IV 05/27/19 10:29 Infused Q24HR LUIS M Infusion Protocol Norepinephrine 4 mg in 250 mls @ 18.75 mls/hr 05/21/19 23:45 05/26/19 22:57 Levophed Drip 4 Mg/Ns 250 Ml IV 4 mcg/min TITR LUIS M 15 mls/hr Administration Protocol 5 MCG/MIN Sodium Chloride 100 mls @ 999 mls/hr 05/26/19 09:30 Nacl 0.9% IV COBY PRN Hypotension Insulin Human Lispro 0 unit 05/16/19 00:00 05/27/19 05:22 Humalog SUB-Q 10 unit Q6HR LUIS M Administration Protocol Metoclopramide HCl 5 mg 05/15/19 23:24 Reglan IV Q6H PRN Nausea And Vomiting Metoclopramide HCl 5 mg 05/25/19 14:00 05/27/19 05:22 Reglan IV 5 mg Q8HR LUIS M Administration Multi-Ingred Cream/Lotion/Oil/Oint 1 applic 05/15/19 09:48 05/25/19 18:29 Artificial Tears Ophth Oint OU 1 applic Q4HR PRN Administration Dry Eye(s) Ondansetron HCl 4 mg 05/15/19 23:04 05/19/19 18:30 Zofran IV 4 mg Q8H PRN Administration Nausea And Vomiting Simple Syrup 15 ml 05/16/19 11:14 Simple Syrup FEEDTUBE PRN PRN Hypoglycemia Simple Syrup 30 ml 05/16/19 11:14 Simple Syrup FEEDTUBE PRN PRN Hypoglycemia Sodium Bicarbonate 325 mg 05/16/19 11:14 Sodium Bicarbonate FEEDTUBE PRN PRN For Clogged Feeding Tube Sodium Bicarbonate 650 mg 05/21/19 15:00 05/26/19 20:06 Sodium Bicarbonate PO 650 mg TID LUIS M Administration Sodium Chloride 10 ml 05/16/19 10:00 05/26/19 21:41 Sodium Chloride Flush Syringe 10 Ml IV 10 ml BID LUIS M Administration Sodium Chloride 10 ml 05/15/19 23:04 Sodium Chloride Flush Syringe 10 Ml IV PRN PRN LINE FLUSH Nutrition/Malnutrition Assess - Dietary Evaluation Nutrition/Malnutrition Findings: Nutrition Notes Start: 05/16/19 08:31 Freq: Status: Active Protocol: Document 05/22/19 09:52 LM (Rec: 05/22/19 09:56 LM [facility]-[id number]) Nutrition Notes Initial or Follow up Reassessment Current Diagnosis CKD (stage V CKD),Diabetes, Hypertension,Respiratory Failure Other Pertinent Diagnosis AV graft infection, fever, COVID-19 positive Current Diet Nepro 1.8 at 45ml/hr Labs/Tests BG 493 Pertinent Medications Humalog Lantus Levophed Zinc Height 5 ft 5 in Weight 82.8 kg [place] Body Weight (kg) 56.81 BMI 30.4 Weight Status Obese Subjective/Other Information Pt tolerating TF at goal rate. Percent of energy/protein needs met: 100%/76% Burn Absent Trauma Absent Current % PO Negligible Minimum of two criteria No Reduced Nurse Practitioner Adult Strength Measurably Reduced (severe) #1 Nutrition Diagnosis Inadequate oral intake Diagnosis Progress(for reassessment Continues documentation) Is patient on ventilator? Yes Is Patient Ambulatory and/or Out of Bed No REE-([facility]-confined to bed) 1450.092 Calculation Used for Recommendations [facility] Additional Notes Protein: 114g (>/=2g/kg using IBW 57kg) Fluid: per MD Nutrition Intervention Change Diet Order: TF Nutrition Support: Nepro 1.8 at 45ml/hr Flush 200 ml q4h Kcal 1,944 Protein (gm) 87 Fluid (mL) 785 Goal #1 TF tolerance Goal #2 Meet at least 75% of energy and protein needs via TF Anticipated Discharge Needs: unable to determine at this time Follow-Up By: 05/29/19 Additional Comments F/U for TF tolerance
[2019-05-27] MEDS ORDERED: ADENOSINE 6 MG/2 ML INJ IV ONE (09:51)
[2019-05-27] MEDS: SODIUM BICARBONATE 650 MG TAB PO SCH ×3 (10:00→20:36)
[2019-05-27] MEDS: cefTRIAXone/NS 2 GM/100 ML 2 GM/100 ML BAG IV SCH (11:45)
[2019-05-27] MEDS: FAMOTIDINE 20 MG TAB PO SCH (11:53)
[2019-05-27] MEDS: HEPARIN 5,000 UNIT/1 ML VIAL SUB-Q SCH ×2 (11:53→21:36)
[2019-05-27] MEDS: NORepinephrine/NS 4 MG-250 ML 4 MG/250 ML BAG IV SCH (12:19)
--- NOTE | 2019-05-27 12:52 | Progress Note ---
Assessment and Plan - Patient Problems (1) CKD (chronic kidney disease) stage 5, GFR less than 15 ml/min Current Visit: No Status: Acute Plan to address problem: With worsening renal parameters, we initiated HD. She unfortunately has not been tolerating her iHD sessions well, and in fact multiple times we have had to decrease her BFR to 250 ml/min as she would become tachycardic with HR in the 170s. She was only able to tolerate 1 hour of treatment yesterday. Ideally she would likely do better with CRRT as the modality of choice for hemodialysis. Unfortunately we do not have that capability here at this facility. Therefore we have to hold off on HD today and wait to hopefully stabilize her hemodynamics further before attempting HD again. Her labs were reviewed and there is no acute HD needs based on labs. Will be monitoring closely. (2) Acute encephalopathy Current Visit: Yes Status: Acute Plan to address problem: With worsening renal clearance, concerned that uremic can also be contributing to her metal status along with her severe sepsis in the setting of COVID-19 pneumonia (3) Acute respiratory failure Current Visit: Yes Status: Acute Qualifiers: Respiratory failure complication: hypoxia Qualified Code(s): J96.01 - Acute respiratory failure with hypoxia Plan to address problem: Management per primary attending/ICU team. (4) Pneumonia due to COVID-19 virus Current Visit: Yes Status: Acute Plan to address problem: Management per ID recommendations. (5) Hypertensive chronic kidney disease with stage 5 chronic kidney disease or end stage renal disease Current Visit: Yes Status: Chronic Plan to address problem: Off all blood pressure medications at this time. Patient was restarted on levophed gtt Will monitor closely (6) Type 2 diabetes mellitus with diabetic chronic kidney disease Current Visit: Yes Status: Chronic Plan to address problem: DM management per primary attending. (7) Anemia in CKD (chronic kidney disease) Current Visit: Yes Status: Acute Qualifiers: Chronic kidney disease stage: stage 5, not on chronic dialysis Qualified Code(s): N18.5 - Chronic kidney disease, stage 5; D63.1 - Anemia in chronic kidney disease Plan to address problem: Transfusion orders placed by PCP yesterday Transfuse to maintain Hgb> 7.0. Recommend to transfuse while on HD so as to minimize fluid overload. Subjective Date of service: 05/27/19 Principal diagnosis: Ac hypoxemic resp failure; Hakeem pneumonia; Sepsis; COVID-19 infection; ESRD Interval history: Unable to tolerate dialysis yesterday. HR fluctuated up to the 170s with persistent SVT that required adenosine treatment. Her HR remains today in the 160-170s. Remains on pressor support with levophed gtt. PUI?: Yes COVID19: Pending Objective - Vital Signs Vital signs: Vital Signs - 12hr 05/27/19 05/27/19 05/27/19 01:00 01:15 01:30 Temperature Pulse Rate 107 H 103 H 103 H Pulse Rate [ From Monitor] Respiratory 31 H 30 H 29 H Rate Blood Pressure 100/61 103/57 87/58 O2 Sat by Pulse 99 98 98 Oximetry 05/27/19 05/27/19 05/27/19 01:45 02:00 02:15 Temperature Pulse Rate 103 H 102 H 101 H Pulse Rate [ From Monitor] Respiratory 20 27 H 28 H Rate Blood Pressure 95/52 101/62 99/65 O2 Sat by Pulse 98 99 99 Oximetry 05/27/19 05/27/19 05/27/19 02:30 02:45 03:00 Temperature Pulse Rate 107 H 103 H 104 H Pulse Rate [ From Monitor] Respiratory 28 H 25 H 32 H Rate Blood Pressure 93/56 109/59 103/60 O2 Sat by Pulse 99 99 99 Oximetry 05/27/19 05/27/19 05/27/19 03:15 03:30 03:45 Temperature Pulse Rate 103 H 108 H 107 H Pulse Rate [ From Monitor] Respiratory 31 H 27 H 29 H Rate Blood Pressure 100/63 111/54 103/57 O2 Sat by Pulse 99 99 99 Oximetry 05/27/19 05/27/19 05/27/19 03:53 04:00 04:15 Temperature 99.1 F Pulse Rate 103 H 108 H Pulse Rate [ 112 H From Monitor] Respiratory 25 H 28 H Rate Blood Pressure 88/63 90/58 O2 Sat by Pulse 98 98 Oximetry 05/27/19 05/27/19 05/27/19 04:30 04:45 05:00 Temperature Pulse Rate 103 H 105 H 103 H Pulse Rate [ From Monitor] Respiratory 30 H 28 H 29 H Rate Blood Pressure 98/56 110/60 108/66 O2 Sat by Pulse 98 99 99 Oximetry 04/11/20 04/11/20 04/11/20 05:15 05:30 05:45 Temperature Pulse Rate 99 H 101 H 101 H Pulse Rate [ From Monitor] Respiratory 29 H 34 H 34 H Rate Blood Pressure 106/67 101/56 107/59 O2 Sat by Pulse 99 98 99 Oximetry 05/27/19 05/27/19 05/27/19 06:00 06:15 06:30 Temperature Pulse Rate 104 H 111 H Pulse Rate [ From Monitor] Respiratory 30 H 24 Rate Blood Pressure 102/57 117/53 95/53 O2 Sat by Pulse 99 99 98 Oximetry 05/27/19 05/27/19 05/27/19 06:45 07:00 07:15 Temperature Pulse Rate 161 H 158 H 158 H Pulse Rate [ From Monitor] Respiratory 30 H 32 H 35 H Rate Blood Pressure 93/53 93/53 102/51 O2 Sat by Pulse 96 97 97 Oximetry 05/27/19 05/27/19 05/27/19 07:30 07:45 08:00 Temperature 99 F Pulse Rate 105 H 161 H Pulse Rate [ From Monitor] Respiratory 35 H 35 H Rate Blood Pressure 98/56 86/56 O2 Sat by Pulse 97 98 Oximetry 05/27/19 05/27/19 05/27/19 08:01 08:15 08:31 Temperature Pulse Rate 162 H 96 H 162 H Pulse Rate [ From Monitor] Respiratory 29 H 29 H 31 H Rate Blood Pressure 90/57 99/54 92/53 O2 Sat by Pulse 96 98 96 Oximetry 05/27/19 05/27/19 08:35 11:22 Temperature Pulse Rate 161 H 93 H Pulse Rate [ From Monitor] Respiratory Rate Blood Pressure 93/53 106/68 O2 Sat by Pulse 96 99 Oximetry - General Appearance General appearance: chronically ill, intubated, frail EENT: ATNC Neck: no JVD Respiratory: Present: Decreased Breath Sounds Cardiology: regular Gastrointestinal: normal Integumentary: no rash Neurologic: no focal deficit Musculoskeletal: deferred - Lab 05/26/19 03:43 05/27/19 08:59 Most recent lab results ABG pH 7.377 pH Units (7.350-7.450) 05/27/19 Unknown ABG pCO2 31.9 mm Hg 05/27/19 Unknown ABG pO2 111.2 mm Hg (80.0-90.0) H 05/27/19 Unknown ABG HCO3 18.3 mmol/L (20.0-26.0) L 05/27/19 Unknown ABG O2 Saturation 98.0 % (95.0-99.0) 05/27/19 Unknown Calcium 9.0 mg/dL (8.4-10.2) 05/27/19 08:59 Phosphorus 6.50 mg/dL (2.5-4.5) H 05/27/19 08:59 Magnesium 1.90 mg/dL (1.7-2.3) 05/27/19 08:59 - Allied health notes Allied health notes reviewed: nursing Medications & Allergies - Medications Allergies/Adverse Reactions: Allergies No Known Allergies Allergy (Unverified 05/10/19 15:33) Home Medications: Home Medications Medication Instructions Recorded Confirmed Last Taken Type Aspirin [Adult Aspirin] 81 mg PO DAILY 05/10/19 05/20/19 05/11/19 History Cyanocobalamin (Vitamin B-12) 2,500 mcg PO DAILY 05/10/19 05/20/19 05/11/19 History [Vitamin B12] Ferrous Sulfate [Feosol 325 MG tab] 325 mg PO DAILY 05/10/19 05/20/19 05/11/19 History Gabapentin 100 mg PO TID 05/10/19 05/20/19 05/11/19 History Insulin Aspart (Nf) [NovoLOG 100 10 unit SQ TIDAC 05/10/19 05/20/19 05/11/19 History UNITS/ML VIAL] Insulin Glargine [Lantus VIAL] 36 unit SQ QAM 05/10/19 05/20/19 05/11/19 History Tizanidine HCl [Tizanidine 2mg tab] 2 mg PO DAILY 05/10/19 05/20/19 05/11/19 History Torsemide [Demadex] 20 mg PO BID 05/10/19 05/20/19 05/11/19 History amLODIPine 10 mg PO BID 05/10/19 05/20/19 05/12/19 04:30 History calcitrioL [Rocaltrol] 0.5 mcg PO DAILY 05/10/19 05/20/19 05/11/19 History carvediloL [Coreg] 12.5 mg PO BID 05/10/19 05/20/19 05/12/19 04:30 History oxyCODONE /ACETAMINOPHEN [Percocet 1 tab PO Q6HR PRN #24 tablet 05/12/19 05/20/19 Unknown Rx 5/325 mg] Active Medications: Generic Name Dose Route Start Last Admin Trade Name Freq PRN Reason Stop Dose Admin Acetaminophen 650 mg 05/15/19 23:04 05/21/19 16:17 Tylenol PO 650 mg Q4H PRN Administration Pain MILD(1-3)/Fever >100.5/MELVIN Acetaminophen 650 mg 05/16/19 01:28 05/16/19 01:44 Tylenol MD 650 mg Q6H PRN Administration TEMP > 100.3 Lipase/Protease/Amylase 1 each 05/16/19 11:[address] 10,500 Unit FEEDTUBE PRN PRN For Clogged Feeding Tube Dextrose 25 ml 05/25/19 13:00 05/25/19 12:20 D50w (25gm) Syringe IV 25 ml Q30MIN PRN Administration BLOOD GLUCOSE </=80 Famotidine 20 mg 05/18/19 10:00 05/27/19 11:53 Pepcid PO 20 mg DAILY LUIS M Administration Heparin Sodium (Porcine) 5,000 unit 05/24/19 22:00 05/27/19 11:53 Heparin SUB-Q 5,000 unit Q12HR LUIS M Administration Hydromorphone HCl 0.25 mg 05/15/19 23:04 05/25/19 12:22 Dilaudid IV 0.25 mg Q3H PRN Administration Pain, Moderate (4-6) Hydrophilic Ointment 1 applic 05/15/19 09:48 Vaseline Lip Therapy TP Q2HR PRN Dry Lips Propofol 1,000 mg in 100 mls @ 2.585 mls/hr 05/15/19 11:00 05/27/19 12:21 Diprivan 10 Mg/Ml IV 20 mcg/kg/min TITR LUIS M 10.342 mls/hr Administration Protocol 5 MCG/KG/MIN Norepinephrine 4 mg in 250 mls @ 18.75 mls/hr 05/21/19 23:45 05/27/19 12:19 Levophed Drip 4 Mg/Ns 250 Ml IV 5 mcg/min TITR LUIS M 18.75 mls/hr Administration Protocol 5 MCG/MIN Sodium Chloride 100 mls @ 999 mls/hr 05/26/19 09:30 Nacl 0.9% IV COBY PRN Hypotension Insulin Human Lispro 0 unit 05/16/19 00:00 05/27/19 05:22 Humalog SUB-Q 10 unit Q6HR LUIS M Administration Protocol Metoclopramide HCl 5 mg 05/15/19 23:24 Reglan IV Q6H PRN Nausea And Vomiting Metoclopramide HCl 5 mg 05/25/19 14:00 05/27/19 05:22 Reglan IV 5 mg Q8HR LUIS M Administration Multi-Ingred Cream/Lotion/Oil/Oint 1 applic 05/15/19 09:48 05/25/19 18:29 Artificial Tears Ophth Oint OU 1 applic Q4HR PRN Administration Dry Eye(s) Ondansetron HCl 4 mg 05/15/19 23:04 05/19/19 18:30 Zofran IV 4 mg Q8H PRN Administration Nausea And Vomiting Simple Syrup 15 ml 05/16/19 11:14 Simple Syrup FEEDTUBE PRN PRN Hypoglycemia Simple Syrup 30 ml 05/16/19 11:14 Simple Syrup FEEDTUBE PRN PRN Hypoglycemia Sodium Bicarbonate 325 mg 05/16/19 11:14 Sodium Bicarbonate FEEDTUBE PRN PRN For Clogged Feeding Tube Sodium Bicarbonate 650 mg 05/21/19 15:00 05/26/19 20:06 Sodium Bicarbonate PO 650 mg TID LUIS M Administration Sodium Chloride 10 ml 05/16/19 10:00 05/26/19 21:41 Sodium Chloride Flush Syringe 10 Ml IV 10 ml BID LUIS M Administration Sodium Chloride 10 ml 05/15/19 23:04 Sodium Chloride Flush Syringe 10 Ml IV PRN PRN LINE FLUSH
[2019-05-27] MEDS: AMIODARONE 200 MG TAB FEEDTUBE SCH ×2 (14:03→21:36)
--- NOTE | 2019-05-27 14:32 | Progress Note ---
Assessment and Plan Acute hypoxemic respiratory failure orally intubated on MVS COVID 19 POSITIVE Bilateral pneumonia, Strep in tracheal aspirate Oropharyngeal dysphagia Acute metabolic encephalopathy Infected AV graft for dialysis; ESRD on HD Type 2 diabetes mellitus; moderate control Lactic acidosis, present on admission Hypernatremia-reolved Worsening leukocytosis and ongoing need for vasopressor support. Possible secondary infection with septic shock [place] culture, CXR Will d/w ID Continue all other care as documented below. -Continue with MVS, Lung protective strategies, monitor airway pressures -VAP bundle addressed -Continue aspiration precautions, HOB>40 -Continue daily assessment for readiness for SBT -Continue Stress ulcer prophylaxis -Continue VTE prophylaxis -Supportive transfusions as indicated to keep HgB >7g/dL -Continue enteric nutritional support at goal rate. Monitor glycemic control, with target blood glucose 140-180 mg/dL while critically ill. -Avoid hypoglycemia- Poor glycemic control - Continue to wean supplemental oxygen for target O2 sats > 92% -ABG and CXR in am -ContinueCOVID isolationprecautions per [facility] protocol -Continue to avoid nephrotoxins, adjust all medications for GFR and CrCL -Supportive HD per renal service - Continue bronchodilators with pulmonary hygiene - Continue prn analgesia per CPOT score - Continue to maintain of sleep-wake cycle, avoid delirium - PT/OT/ROM exercises - Continue mobility protocol , off loading and skin assessment per protocol for pressure ulcer prevention - continue other care per attending / other consultants CONDITION: CRITICAL PROGNOSIS: GUARDED CODE STATUS: FULL CODE The high probability of a clinically significant, sudden or life-threatening deterioration of the [respiratory, renal, Neurology] system(s) required my full and direct attention, intervention and personal management. The aggregate critical care time was [35] minutes without overlap. Time includes spent on; [x] Data Review and interpretation [x] Patient assessment and monitoring of vital signs [x] Documentation [x] Medication orders and management Subjective Date of service: 05/27/19 Principal diagnosis: Ac hypoxemic resp failure; Hakeem pneumonia; Sepsis; COVID-19 infection; ESRD Interval history: Patient is seen today for: Acute hypoxemic respiratory failure orally intubated on MVS;COVID 19 POSITIVE;Bilateral pneumonia;Oropharyngeal dysphagia ;Acute metabolic encephalopathy Seen and examined at bedside; 24hour events reviewed; nursing and respiratory care staff consulted; no adverse overnight events reported to me; Vitals, labs, medications, chart reviewed. Remains on mechanical ventilatory support. Remains on PEEP of 10 and FIO2 of 75% SVT yesterday requiring IV adenosine. 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 S/p tocilizumab IV x 1 05/23/2019 S/p plaquenil and zinc total 5 days s/p Ceftriaxone PUI?: Yes COVID19: Positive Objective Vital Signs - 12hr 05/27/19 05/27/19 05/27/19 02:45 03:00 03:15 Temperature Pulse Rate 103 H 104 H 103 H Pulse Rate [ From Monitor] Respiratory 25 H 32 H 31 H Rate Blood Pressure 109/59 103/60 100/63 O2 Sat by Pulse 99 99 99 Oximetry 05/27/19 05/27/19 05/27/19 03:30 03:45 03:53 Temperature 99.1 F Pulse Rate 108 H 107 H Pulse Rate [ From Monitor] Respiratory 27 H 29 H Rate Blood Pressure 111/54 103/57 O2 Sat by Pulse 99 99 Oximetry 05/27/19 05/27/19 05/27/19 04:00 04:15 04:30 Temperature Pulse Rate 103 H 108 H 103 H Pulse Rate [ 112 H From Monitor] Respiratory 25 H 28 H 30 H Rate Blood Pressure 88/63 90/58 98/56 O2 Sat by Pulse 98 98 98 Oximetry 05/27/19 05/27/19 05/27/19 04:45 05:00 05:15 Temperature Pulse Rate 105 H 103 H 99 H Pulse Rate [ From Monitor] Respiratory 28 H 29 H 29 H Rate Blood Pressure 110/60 108/66 106/67 O2 Sat by Pulse 99 99 99 Oximetry 05/27/19 05/27/19 05/27/19 05:30 05:45 06:00 Temperature Pulse Rate 101 H 101 H 104 H Pulse Rate [ From Monitor] Respiratory 34 H 34 H 30 H Rate Blood Pressure 101/56 107/59 102/57 O2 Sat by Pulse 98 99 99 Oximetry 05/27/19 05/27/19 05/27/19 06:15 06:30 06:45 Temperature Pulse Rate 111 H 161 H Pulse Rate [ From Monitor] Respiratory 24 30 H Rate Blood Pressure 117/53 95/53 93/53 O2 Sat by Pulse 99 98 96 Oximetry 05/27/19 05/27/19 05/27/19 07:00 07:15 07:30 Temperature Pulse Rate 158 H 158 H 105 H Pulse Rate [ From Monitor] Respiratory 32 H 35 H 35 H Rate Blood Pressure 93/53 102/51 98/56 O2 Sat by Pulse 97 97 97 Oximetry 05/27/19 05/27/19 05/27/19 07:45 08:00 08:01 Temperature 99 F Pulse Rate 161 H 162 H Pulse Rate [ From Monitor] Respiratory 35 H 29 H Rate Blood Pressure 86/56 90/57 O2 Sat by Pulse 98 96 Oximetry 05/27/19 05/27/19 05/27/19 08:15 08:31 08:35 Temperature Pulse Rate 96 H 162 H 161 H Pulse Rate [ From Monitor] Respiratory 29 H 31 H Rate Blood Pressure 99/54 92/53 93/53 O2 Sat by Pulse 98 96 96 Oximetry 05/27/19 05/27/19 11:22 12:00 Temperature 99.2 F Pulse Rate 93 H Pulse Rate [ From Monitor] Respiratory Rate Blood Pressure 106/68 O2 Sat by Pulse 99 Oximetry Constitutional: appears uncomfortable, other (elderly looking obese AAF, normocephalic with no mildly increased work of breathing) Eyes: non-icteric ENT: oropharynx moist, other (ETT 24 cm KARLA) Neck: supple, no lymphadenopathy Effort: mildly labored Ascultation: Bilateral: clear, diminished breath sounds, rhonchi Percussion: Bilateral: not dull Cardiovascular: regular rate and rhythm Gastrointestinal: normoactive bowel sounds, soft, non-tender, non-distended Integumentary: rash Extremities: no cyanosis, no edema, pulses normal, no ischemia or petechiae Neurologic: normal mental status, non-focal exam (grossly), pupils equal and round Psychiatric: anxious CBC and BMP: 05/26/19 03:43 05/27/19 08:59 ABG, PT/INR, D-dimer: ABG ABG pH 7.377 pH Units (7.350-7.450) 05/27/19 Unknown ABG pCO2 31.9 mm Hg 05/27/19 Unknown ABG pO2 111.2 mm Hg (80.0-90.0) H 05/27/19 Unknown ABG O2 Saturation 98.0 % (95.0-99.0) 05/27/19 Unknown PT/INR, D-dimer D-Dimer 7143.61 ng/mlDDU (0-234) H 05/26/19 21:48 Abnormal lab findings: Abnormal Labs 05/15/19 05/15/19 05/15/19 08:07 08:31 09:11 WBC 11.9 H RBC 3.41 L Hgb 9.3 L Hct 30.1 L MCH 27 L RDW Lymph % (Auto) Lymph # Seg Neutrophils % Seg Neutrophils # D-Dimer ABG pH ABG pO2 ABG HCO3 ABG O2 Saturation ABG Base Excess ABG Hemoglobin Oxyhemoglobin Sodium 136 L Potassium Chloride Carbon Dioxide 15 L D BUN 74 H Creatinine 5.8 H Glucose 267 H POC Glucose 344 H Hemoglobin A1c Lactic Acid Calcium Phosphorus Ferritin AST ALT < 5 L Alkaline Phosphatase Lactate Dehydrogenase C-Reactive Protein NT-Pro-B Natriuret Pep Albumin 3.2 L Salicylates Acetaminophen Crossmatch 05/15/19 05/15/19 05/15/19 09:11 09:11 09:30 WBC RBC Hgb Hct MCH RDW Lymph % (Auto) Lymph # Seg Neutrophils % Seg Neutrophils # D-Dimer ABG pH ABG pO2 ABG HCO3 ABG O2 Saturation ABG Base Excess -2.8 L ABG Hemoglobin 8.2 L Oxyhemoglobin 94.6 L Sodium Potassium Chloride Carbon Dioxide BUN Creatinine Glucose POC Glucose Hemoglobin A1c Lactic Acid 3.50 H* Calcium Phosphorus Ferritin AST ALT Alkaline Phosphatase Lactate Dehydrogenase C-Reactive Protein NT-Pro-B Natriuret Pep 7240 H Albumin Salicylates Acetaminophen Crossmatch 05/15/19 05/15/19 05/15/19 13:10 13:10 Unknown WBC RBC Hgb Hct MCH RDW Lymph % (Auto) Lymph # Seg Neutrophils % Seg Neutrophils # D-Dimer ABG pH ABG pO2 ABG HCO3 ABG O2 Saturation ABG Base Excess ABG Hemoglobin Oxyhemoglobin Sodium Potassium Chloride Carbon Dioxide BUN Creatinine Glucose POC Glucose Hemoglobin A1c 7.7 H Lactic Acid Calcium Phosphorus Ferritin AST ALT Alkaline Phosphatase Lactate Dehydrogenase C-Reactive Protein NT-Pro-B Natriuret Pep Albumin Salicylates < 0.3 L Acetaminophen < 5.0 L Crossmatch 05/16/19 05/16/19 05/16/19 03:44 03:58 13:08 WBC 12.9 H RBC Hgb Hct MCH RDW Lymph % (Auto) 7.1 L Lymph # 0.9 L Seg Neutrophils % 87.7 H Seg Neutrophils # 11.3 H D-Dimer ABG pH ABG pO2 213.3 H ABG HCO3 ABG O2 Saturation 99.3 H ABG Base Excess ABG Hemoglobin 7.5 L Oxyhemoglobin Sodium Potassium Chloride Carbon Dioxide BUN Creatinine Glucose POC Glucose 231 H Hemoglobin A1c Lactic Acid Calcium Phosphorus Ferritin AST ALT Alkaline Phosphatase Lactate Dehydrogenase C-Reactive Protein NT-Pro-B Natriuret Pep Albumin Salicylates Acetaminophen Crossmatch 05/16/19 05/16/19 05/17/19 18:28 23:34 05:02 WBC RBC Hgb Hct MCH RDW Lymph % (Auto) Lymph # Seg Neutrophils % Seg Neutrophils # D-Dimer ABG pH ABG pO2 91.9 H ABG HCO3 ABG O2 Saturation ABG Base Excess -3.6 L ABG Hemoglobin 7.2 L Oxyhemoglobin Sodium Potassium Chloride Carbon Dioxide BUN Creatinine Glucose POC Glucose 181 H 177 H Hemoglobin A1c Lactic Acid Calcium Phosphorus Ferritin AST ALT Alkaline Phosphatase Lactate Dehydrogenase C-Reactive Protein NT-Pro-B Natriuret Pep Albumin Salicylates Acetaminophen Crossmatch 05/17/19 05/17/19 05/17/19 05:43 05:43 15:15 WBC RBC 3.06 L Hgb 8.6 L Hct 26.1 L D MCH RDW Lymph % (Auto) 6.4 L Lymph # 0.5 L Seg Neutrophils % 87.5 H Seg Neutrophils # D-Dimer ABG pH ABG pO2 ABG HCO3 ABG O2 Saturation ABG Base Excess ABG Hemoglobin Oxyhemoglobin Sodium Potassium Chloride Carbon Dioxide 17 L BUN 76 H Creatinine 5.4 H Glucose 231 H POC Glucose 302 H Hemoglobin A1c Lactic Acid Calcium Phosphorus Ferritin AST ALT Alkaline Phosphatase Lactate Dehydrogenase C-Reactive Protein NT-Pro-B Natriuret Pep Albumin Salicylates Acetaminophen Crossmatch 05/17/19 05/18/19 05/18/19 18:44 00:04 05:35 WBC RBC Hgb Hct MCH RDW Lymph % (Auto) Lymph # Seg Neutrophils % Seg Neutrophils # D-Dimer ABG pH ABG pO2 ABG HCO3 ABG O2 Saturation ABG Base Excess ABG Hemoglobin Oxyhemoglobin Sodium Potassium Chloride Carbon Dioxide BUN Creatinine Glucose POC Glucose 258 H 331 H 329 H Hemoglobin A1c Lactic Acid Calcium Phosphorus Ferritin AST ALT Alkaline Phosphatase Lactate Dehydrogenase C-Reactive Protein NT-Pro-B Natriuret Pep Albumin Salicylates Acetaminophen Crossmatch 05/18/19 05/18/19 05/18/19 11:15 11:15 11:15 WBC RBC Hgb Hct MCH RDW Lymph % (Auto) Lymph # Seg Neutrophils % Seg Neutrophils # D-Dimer 5072.66 H ABG pH ABG pO2 ABG HCO3 ABG O2 Saturation ABG Base Excess ABG Hemoglobin Oxyhemoglobin Sodium 146 H Potassium Chloride Carbon Dioxide 18 L BUN 99 H Creatinine 6.1 H Glucose 346 H POC Glucose Hemoglobin A1c Lactic Acid Calcium Phosphorus Ferritin 975.6 H AST ALT < 5 L Alkaline Phosphatase Lactate Dehydrogenase C-Reactive Protein NT-Pro-B Natriuret Pep Albumin 3.0 L Salicylates Acetaminophen Crossmatch 05/18/19 05/18/19 05/18/19 11:15 11:55 18:11 WBC RBC Hgb Hct MCH RDW Lymph % (Auto) Lymph # Seg Neutrophils % Seg Neutrophils # D-Dimer ABG pH ABG pO2 ABG HCO3 ABG O2 Saturation ABG Base Excess ABG Hemoglobin Oxyhemoglobin Sodium Potassium Chloride Carbon Dioxide BUN Creatinine Glucose POC Glucose 334 H 397 H Hemoglobin A1c Lactic Acid Calcium Phosphorus Ferritin AST ALT Alkaline Phosphatase Lactate Dehydrogenase 483 H C-Reactive Protein 38.00 H NT-Pro-B Natriuret Pep Albumin Salicylates Acetaminophen Crossmatch 05/18/19 05/19/19 05/19/19 Unknown 00:30 05:07 WBC RBC Hgb Hct MCH RDW Lymph % (Auto) Lymph # Seg Neutrophils % Seg Neutrophils # D-Dimer ABG pH ABG pO2 133.0 H 61.1 L ABG HCO3 ABG O2 Saturation 94.4 L ABG Base Excess -2.9 L -2.7 L ABG Hemoglobin 8.3 L 8.0 L Oxyhemoglobin 92.2 L Sodium Potassium Chloride Carbon Dioxide BUN Creatinine Glucose POC Glucose 321 H Hemoglobin A1c Lactic Acid Calcium Phosphorus Ferritin AST ALT Alkaline Phosphatase Lactate Dehydrogenase C-Reactive Protein NT-Pro-B Natriuret Pep Albumin Salicylates Acetaminophen Crossmatch 05/19/19 05/19/19 05/19/19 05:17 12:23 15:02 WBC RBC Hgb Hct MCH RDW Lymph % (Auto) Lymph # Seg Neutrophils % Seg Neutrophils # D-Dimer ABG pH ABG pO2 ABG HCO3 ABG O2 Saturation ABG Base Excess ABG Hemoglobin Oxyhemoglobin Sodium 147 H Potassium Chloride 108.2 H Carbon Dioxide 16 L BUN 119 H Creatinine 8.5 H Glucose 315 H POC Glucose 235 H 298 H Hemoglobin A1c Lactic Acid Calcium 8.3 L Phosphorus Ferritin AST ALT Alkaline Phosphatase Lactate Dehydrogenase C-Reactive Protein NT-Pro-B Natriuret Pep Albumin Salicylates Acetaminophen Crossmatch 05/19/19 05/20/19 05/20/19 17:42 00:11 04:17 WBC RBC Hgb Hct MCH RDW Lymph % (Auto) Lymph # Seg Neutrophils % Seg Neutrophils # D-Dimer ABG pH 7.322 L ABG pO2 58.5 L ABG HCO3 18.9 L ABG O2 Saturation 91.0 L ABG Base Excess -6.5 L ABG Hemoglobin 7.0 L Oxyhemoglobin 88.2 L Sodium Potassium Chloride Carbon Dioxide BUN Creatinine Glucose POC Glucose 310 H 277 H Hemoglobin A1c Lactic Acid Calcium Phosphorus Ferritin AST ALT Alkaline Phosphatase Lactate Dehydrogenase C-Reactive Protein NT-Pro-B Natriuret Pep Albumin Salicylates Acetaminophen Crossmatch 05/20/19 05/20/19 05/20/19 05:29 09:06 09:06 WBC RBC Hgb Hct MCH RDW Lymph % (Auto) Lymph # Seg Neutrophils % Seg Neutrophils # D-Dimer 3193.32 H ABG pH ABG pO2 ABG HCO3 ABG O2 Saturation ABG Base Excess ABG Hemoglobin Oxyhemoglobin Sodium Potassium Chloride Carbon Dioxide BUN Creatinine Glucose POC Glucose 332 H Hemoglobin A1c Lactic Acid Calcium Phosphorus Ferritin 1802.0 H AST ALT Alkaline Phosphatase Lactate Dehydrogenase C-Reactive Protein NT-Pro-B Natriuret Pep Albumin Salicylates Acetaminophen Crossmatch 05/20/19 05/20/19 05/20/19 09:06 12:31 18:18 WBC RBC Hgb Hct MCH RDW Lymph % (Auto) Lymph # Seg Neutrophils % Seg Neutrophils # D-Dimer ABG pH ABG pO2 ABG HCO3 ABG O2 Saturation ABG Base Excess ABG Hemoglobin Oxyhemoglobin Sodium Potassium Chloride Carbon Dioxide BUN Creatinine Glucose POC Glucose 284 H 355 H Hemoglobin A1c Lactic Acid Calcium Phosphorus Ferritin AST ALT Alkaline Phosphatase Lactate Dehydrogenase 646 H C-Reactive Protein 56.30 H NT-Pro-B Natriuret Pep Albumin Salicylates Acetaminophen Crossmatch 05/20/19 05/21/19 05/21/19 23:43 05:04 05:05 WBC RBC Hgb Hct MCH RDW Lymph % (Auto) Lymph # Seg Neutrophils % Seg Neutrophils # D-Dimer ABG pH ABG pO2 54.1 L ABG HCO3 ABG O2 Saturation 88.4 L ABG Base Excess -4.0 L ABG Hemoglobin 6.9 L Oxyhemoglobin 85.5 L Sodium Potassium Chloride Carbon Dioxide BUN Creatinine Glucose POC Glucose 394 H 394 H Hemoglobin A1c Lactic Acid Calcium Phosphorus Ferritin AST ALT Alkaline Phosphatase Lactate Dehydrogenase C-Reactive Protein NT-Pro-B Natriuret Pep Albumin Salicylates Acetaminophen Crossmatch 05/21/19 05/21/19 05/21/19 12:14 17:41 23:25 WBC RBC Hgb Hct MCH RDW Lymph % (Auto) Lymph # Seg Neutrophils % Seg Neutrophils # D-Dimer ABG pH 7.281 L ABG pO2 61.2 L ABG HCO3 ABG O2 Saturation 91.6 L ABG Base Excess -4.8 L ABG Hemoglobin 6.2 L Oxyhemoglobin 88.9 L Sodium Potassium Chloride Carbon Dioxide BUN Creatinine Glucose POC Glucose 457 H 427 H Hemoglobin A1c Lactic Acid Calcium Phosphorus Ferritin AST ALT Alkaline Phosphatase Lactate Dehydrogenase C-Reactive Protein NT-Pro-B Natriuret Pep Albumin Salicylates Acetaminophen Crossmatch 05/21/19 05/22/19 05/22/19 23:45 04:35 04:48 WBC RBC Hgb Hct MCH RDW Lymph % (Auto) Lymph # Seg Neutrophils % Seg Neutrophils # D-Dimer ABG pH ABG pO2 ABG HCO3 ABG O2 Saturation ABG Base Excess ABG Hemoglobin Oxyhemoglobin Sodium Potassium Chloride Carbon Dioxide BUN Creatinine Glucose POC Glucose 453 H 470 H Hemoglobin A1c Lactic Acid Calcium Phosphorus Ferritin AST ALT Alkaline Phosphatase Lactate Dehydrogenase 978 H C-Reactive Protein 57.20 H NT-Pro-B Natriuret Pep Albumin Salicylates Acetaminophen Crossmatch 05/22/19 05/22/19 05/22/19 04:48 04:48 09:33 WBC 12.0 H RBC 2.47 L Hgb 7.0 L Hct 22.0 L MCH RDW 16.3 H Lymph % (Auto) Lymph # Seg Neutrophils % Seg Neutrophils # D-Dimer ABG pH 7.331 L ABG pO2 62.5 L ABG HCO3 ABG O2 Saturation 90.2 L ABG Base Excess -5.0 L ABG Hemoglobin 6.4 L Oxyhemoglobin 87.8 L Sodium Potassium Chloride Carbon Dioxide 17 L BUN 176 H Creatinine 12.0 H Glucose 493 H POC Glucose Hemoglobin A1c Lactic Acid Calcium Phosphorus Ferritin AST ALT Alkaline Phosphatase Lactate Dehydrogenase C-Reactive Protein NT-Pro-B Natriuret Pep Albumin Salicylates Acetaminophen Crossmatch 05/22/19 05/22/19 05/22/19 10:11 12:49 13:16 WBC RBC Hgb Hct MCH RDW Lymph % (Auto) Lymph # Seg Neutrophils % Seg Neutrophils # D-Dimer 3046.75 H ABG pH ABG pO2 ABG HCO3 ABG O2 Saturation ABG Base Excess ABG Hemoglobin Oxyhemoglobin Sodium Potassium Chloride Carbon Dioxide BUN Creatinine Glucose POC Glucose > 500 H Hemoglobin A1c Lactic Acid Calcium Phosphorus Ferritin 2525.0 H AST ALT Alkaline Phosphatase Lactate Dehydrogenase C-Reactive Protein NT-Pro-B Natriuret Pep Albumin Salicylates Acetaminophen Crossmatch 05/22/19 05/22/19 05/23/19 17:36 23:51 04:12 WBC RBC Hgb Hct MCH RDW Lymph % (Auto) Lymph # Seg Neutrophils % Seg Neutrophils # D-Dimer ABG pH ABG pO2 54.9 L ABG HCO3 ABG O2 Saturation 93.8 L ABG Base Excess -2.4 L ABG Hemoglobin 5.9 L Oxyhemoglobin 91.5 L Sodium Potassium Chloride Carbon Dioxide BUN Creatinine Glucose POC Glucose > 500 H 302 H Hemoglobin A1c Lactic Acid Calcium Phosphorus Ferritin AST ALT Alkaline Phosphatase Lactate Dehydrogenase C-Reactive Protein NT-Pro-B Natriuret Pep Albumin Salicylates Acetaminophen Crossmatch 05/23/19 05/23/19 05/23/19 05:45 13:38 17:07 WBC RBC Hgb Hct MCH RDW Lymph % (Auto) Lymph # Seg Neutrophils % Seg Neutrophils # D-Dimer ABG pH ABG pO2 ABG HCO3 ABG O2 Saturation ABG Base Excess ABG Hemoglobin Oxyhemoglobin Sodium Potassium Chloride Carbon Dioxide BUN Creatinine Glucose POC Glucose 279 H 269 H 205 H Hemoglobin A1c Lactic Acid Calcium Phosphorus Ferritin AST ALT Alkaline Phosphatase Lactate Dehydrogenase C-Reactive Protein NT-Pro-B Natriuret Pep Albumin Salicylates Acetaminophen Crossmatch 05/23/19 05/24/19 05/24/19 21:07 00:01 03:55 WBC RBC Hgb Hct MCH RDW Lymph % (Auto) Lymph # Seg Neutrophils % Seg Neutrophils # D-Dimer ABG pH 7.471 H ABG pO2 163.2 H ABG HCO3 ABG O2 Saturation 99.1 H ABG Base Excess ABG Hemoglobin 6.0 L Oxyhemoglobin Sodium Potassium Chloride Carbon Dioxide BUN Creatinine Glucose POC Glucose 274 H 260 H Hemoglobin A1c Lactic Acid Calcium Phosphorus Ferritin AST ALT Alkaline Phosphatase Lactate Dehydrogenase C-Reactive Protein NT-Pro-B Natriuret Pep Albumin Salicylates Acetaminophen Crossmatch 05/24/19 05/24/19 05/24/19 05:00 05:00 05:00 WBC RBC Hgb Hct MCH RDW Lymph % (Auto) Lymph # Seg Neutrophils % Seg Neutrophils # D-Dimer 2422.36 H ABG pH ABG pO2 ABG HCO3 ABG O2 Saturation ABG Base Excess ABG Hemoglobin Oxyhemoglobin Sodium Potassium Chloride Carbon Dioxide BUN Creatinine Glucose POC Glucose Hemoglobin A1c Lactic Acid Calcium Phosphorus Ferritin 3849.0 H AST ALT Alkaline Phosphatase Lactate Dehydrogenase 904 H C-Reactive Protein 44.40 H NT-Pro-B Natriuret Pep Albumin Salicylates Acetaminophen Crossmatch 05/24/19 05/24/19 05/24/19 05:00 05:00 05:29 WBC 17.2 H RBC 2.16 L Hgb 5.9 L* Hct 18.1 L* MCH 27 L RDW 15.3 H Lymph % (Auto) Lymph # Seg Neutrophils % Seg Neutrophils # D-Dimer ABG pH ABG pO2 ABG HCO3 ABG O2 Saturation ABG Base Excess ABG Hemoglobin Oxyhemoglobin Sodium Potassium 3.5 L D Chloride 93.4 L Carbon Dioxide 21 L BUN 97 H Creatinine 7.9 H Glucose 312 H POC Glucose 339 H Hemoglobin A1c Lactic Acid Calcium Phosphorus Ferritin AST ALT Alkaline Phosphatase Lactate Dehydrogenase C-Reactive Protein NT-Pro-B Natriuret Pep Albumin Salicylates Acetaminophen Crossmatch 05/24/19 05/24/19 05/24/19 08:45 12:48 18:05 WBC RBC Hgb Hct MCH RDW Lymph % (Auto) Lymph # Seg Neutrophils % Seg Neutrophils # D-Dimer ABG pH ABG pO2 ABG HCO3 ABG O2 Saturation ABG Base Excess ABG Hemoglobin Oxyhemoglobin Sodium Potassium Chloride Carbon Dioxide BUN Creatinine Glucose POC Glucose 270 H 154 H Hemoglobin A1c Lactic Acid Calcium Phosphorus Ferritin AST ALT Alkaline Phosphatase Lactate Dehydrogenase C-Reactive Protein NT-Pro-B Natriuret Pep Albumin Salicylates Acetaminophen Crossmatch See Detail 05/24/19 05/25/19 05/25/19 23:49 04:00 04:01 WBC 14.9 H RBC 3.62 L Hgb 9.8 L D Hct 29.3 L D MCH 27 L RDW Lymph % (Auto) Lymph # Seg Neutrophils % Seg Neutrophils # D-Dimer ABG pH ABG pO2 52.6 L ABG HCO3 ABG O2 Saturation 87.6 L ABG Base Excess ABG Hemoglobin 11.5 L Oxyhemoglobin 85.7 L Sodium Potassium Chloride Carbon Dioxide BUN Creatinine Glucose POC Glucose 199 H Hemoglobin A1c Lactic Acid Calcium Phosphorus Ferritin AST ALT Alkaline Phosphatase Lactate Dehydrogenase C-Reactive Protein NT-Pro-B Natriuret Pep Albumin Salicylates Acetaminophen Crossmatch 05/25/19 05/25/19 05/25/19 04:01 05:41 08:33 WBC RBC Hgb Hct MCH RDW Lymph % (Auto) Lymph # Seg Neutrophils % Seg Neutrophils # D-Dimer ABG pH 7.459 H ABG pO2 56.8 L ABG HCO3 ABG O2 Saturation 89.8 L ABG Base Excess ABG Hemoglobin 9.2 L Oxyhemoglobin 87.8 L Sodium Potassium 2.8 L* Chloride 96.4 L Carbon Dioxide BUN 59 H Creatinine 5.2 H Glucose 147 H POC Glucose 127 H Hemoglobin A1c Lactic Acid Calcium Phosphorus Ferritin AST 128 H ALT Alkaline Phosphatase 142 H Lactate Dehydrogenase C-Reactive Protein NT-Pro-B Natriuret Pep Albumin 2.9 L Salicylates Acetaminophen Crossmatch 05/25/19 05/25/19 05/25/19 12:03 13:36 17:13 WBC RBC Hgb Hct MCH RDW Lymph % (Auto) Lymph # Seg Neutrophils % Seg Neutrophils # D-Dimer ABG pH ABG pO2 ABG HCO3 ABG O2 Saturation ABG Base Excess ABG Hemoglobin Oxyhemoglobin Sodium Potassium Chloride Carbon Dioxide BUN Creatinine Glucose POC Glucose 42 L 108 H 168 H Hemoglobin A1c Lactic Acid Calcium Phosphorus Ferritin AST ALT Alkaline Phosphatase Lactate Dehydrogenase C-Reactive Protein NT-Pro-B Natriuret Pep Albumin Salicylates Acetaminophen Crossmatch 05/25/19 05/26/19 05/26/19 23:43 03:43 03:43 WBC 20.3 H RBC 3.56 L Hgb 9.7 L Hct 29.4 L MCH 27 L RDW Lymph % (Auto) Lymph # Seg Neutrophils % Seg Neutrophils # D-Dimer ABG pH ABG pO2 ABG HCO3 ABG O2 Saturation ABG Base Excess ABG Hemoglobin Oxyhemoglobin Sodium Potassium Chloride Carbon Dioxide 18 L BUN 85 H Creatinine 7.6 H Glucose 229 H POC Glucose 266 H Hemoglobin A1c Lactic Acid Calcium Phosphorus Ferritin AST ALT Alkaline Phosphatase Lactate Dehydrogenase C-Reactive Protein NT-Pro-B Natriuret Pep Albumin Salicylates Acetaminophen Crossmatch 05/26/19 05/26/19 05/26/19 03:43 03:56 04:51 WBC RBC Hgb Hct MCH RDW Lymph % (Auto) Lymph # Seg Neutrophils % Seg Neutrophils # D-Dimer ABG pH ABG pO2 71.9 L ABG HCO3 19.6 L ABG O2 Saturation ABG Base Excess -3.9 L ABG Hemoglobin 9.7 L Oxyhemoglobin 93.6 L Sodium Potassium Chloride Carbon Dioxide BUN Creatinine Glucose POC Glucose 222 H Hemoglobin A1c Lactic Acid Calcium Phosphorus Ferritin AST ALT Alkaline Phosphatase Lactate Dehydrogenase 925 H C-Reactive Protein 22.20 H NT-Pro-B Natriuret Pep Albumin Salicylates Acetaminophen Crossmatch 05/26/19 05/26/19 05/26/19 11:53 17:55 21:48 WBC RBC Hgb Hct MCH RDW Lymph % (Auto) Lymph # Seg Neutrophils % Seg Neutrophils # D-Dimer 7143.61 H ABG pH ABG pO2 ABG HCO3 ABG O2 Saturation ABG Base Excess ABG Hemoglobin Oxyhemoglobin Sodium Potassium Chloride Carbon Dioxide BUN Creatinine Glucose POC Glucose 212 H 229 H Hemoglobin A1c Lactic Acid Calcium Phosphorus Ferritin AST ALT Alkaline Phosphatase Lactate Dehydrogenase C-Reactive Protein NT-Pro-B Natriuret Pep Albumin Salicylates Acetaminophen Crossmatch 05/26/19 05/27/19 05/27/19 21:48 00:07 00:17 WBC RBC Hgb Hct MCH RDW Lymph % (Auto) Lymph # Seg Neutrophils % Seg Neutrophils # D-Dimer ABG pH ABG pO2 ABG HCO3 ABG O2 Saturation ABG Base Excess ABG Hemoglobin Oxyhemoglobin Sodium Potassium Chloride Carbon Dioxide BUN Creatinine Glucose POC Glucose 235 H 274 H Hemoglobin A1c Lactic Acid Calcium Phosphorus Ferritin > 2000.0 H AST ALT Alkaline Phosphatase Lactate Dehydrogenase C-Reactive Protein NT-Pro-B Natriuret Pep Albumin Salicylates Acetaminophen Crossmatch 04/11/20 04/11/20 04/11/20 05:20 08:59 12:26 WBC RBC Hgb Hct MCH RDW Lymph % (Auto) Lymph # Seg Neutrophils % Seg Neutrophils # D-Dimer ABG pH ABG pO2 ABG HCO3 ABG O2 Saturation ABG Base Excess ABG Hemoglobin Oxyhemoglobin Sodium Potassium 3.3 L Chloride 94.3 L Carbon Dioxide 14 L BUN 88 H Creatinine 6.8 H Glucose 296 H POC Glucose 338 H 313 H Hemoglobin A1c Lactic Acid Calcium Phosphorus 6.50 H Ferritin AST ALT Alkaline Phosphatase Lactate Dehydrogenase C-Reactive Protein NT-Pro-B Natriuret Pep Albumin Salicylates Acetaminophen Crossmatch 05/27/19 Unknown WBC RBC Hgb Hct MCH RDW Lymph % (Auto) Lymph # Seg Neutrophils % Seg Neutrophils # D-Dimer ABG pH ABG pO2 111.2 H ABG HCO3 18.3 L ABG O2 Saturation ABG Base Excess -6.0 L ABG Hemoglobin 9.3 L Oxyhemoglobin Sodium Potassium Chloride Carbon Dioxide BUN Creatinine Glucose POC Glucose Hemoglobin A1c Lactic Acid Calcium Phosphorus Ferritin AST ALT Alkaline Phosphatase Lactate Dehydrogenase C-Reactive Protein NT-Pro-B Natriuret Pep Albumin Salicylates Acetaminophen Crossmatch Allied health notes reviewed: nursing
[2019-05-27] MEDS ORDERED: VASOPRESSIN 20 UNIT in SODIUM CHLORIDE 0.9% 100 ML IV SCH (15:14)
[2019-05-28] MEDS: INSULIN LISPRO 100 UNIT/ML SUB-Q SCH ×2 (00:35→06:19)
[2019-05-28] MEDS: NORepinephrine/NS 4 MG-250 ML 4 MG/250 ML BAG IV SCH ×2 (02:37→18:50)
[2019-05-28 05:24] LABS: ABG Base Excess -7.3 mmol/L (-2.0-3.0); ABG HCO3 18.3 mmol/L (20.0-26.0); ABG Methemoglobin 0.6 % (0.0-1.5); ABG Oxygen Saturation 92.6 % (95.0-99.0); ABG PCO2 37.2 mm Hg; ABG PH 7.31 pH Units (7.350-7.450)
--- NOTE | 2019-05-28 05:56 | Progress Note ---
Assessment and Plan - Patient Problems (1) CKD (chronic kidney disease) stage 5, GFR less than 15 ml/min Current Visit: No Status: Acute Plan to address problem: With worsening renal parameters, we initiated HD. She unfortunately has not been tolerating her iHD sessions well, and in fact multiple times we have had to decrease her BFR to 250 ml/min as she would become tachycardic with HR in the 170s. She was only able to tolerate 1 hour of treatment yesterday. Likely in the setting of worsening sepsis in the setting of severe COVID-19 PNA. Ideally she would likely do better with CRRT as the modality of choice for hemodialysis. Unfortunately we do not have that capability here at this facility. Therefore we have to hold off on HD today and wait to hopefully stabilize her hemodynamics further before attempting HD again. My plan is to dialyze her tomorrow. (2) Acute encephalopathy Current Visit: Yes Status: Acute Plan to address problem: With worsening renal clearance, concerned that uremic can also be contributing to her metal status along with her severe sepsis in the setting of COVID-19 pneumonia (3) Acute respiratory failure Current Visit: Yes Status: Acute Qualifiers: Respiratory failure complication: hypoxia Qualified Code(s): J96.01 - Acute respiratory failure with hypoxia Plan to address problem: Management per primary attending/ICU team. (4) Pneumonia due to COVID-19 virus Current Visit: Yes Status: Acute Plan to address problem: Management per ID recommendations. (5) Hypertensive chronic kidney disease with stage 5 chronic kidney disease or end stage renal disease Current Visit: Yes Status: Chronic Plan to address problem: Off all blood pressure medications at this time. Patient was restarted on levophed gtt Will monitor closely (6) Type 2 diabetes mellitus with diabetic chronic kidney disease Current Visit: Yes Status: Chronic Plan to address problem: DM management per primary attending. (7) Anemia in CKD (chronic kidney disease) Current Visit: Yes Status: Acute Qualifiers: Chronic kidney disease stage: stage 5, not on chronic dialysis Qualified Code(s): N18.5 - Chronic kidney disease, stage 5; D63.1 - Anemia in chronic kidney disease Plan to address problem: Transfusion orders placed by PCP yesterday Transfuse to maintain Hgb> 7.0. Recommend to transfuse while on HD so as to minimize fluid overload. Subjective Principal diagnosis: Ac hypoxemic resp failure; Hakeem pneumonia; Sepsis; COVID-19 infection; ESRD Interval history: Unable to tolerate dialysis on Wednesday. HR fluctuated up to the 170s with persistent SVT that required adenosine treatment. Her HR is stable this am, but per RN has fluctuated earlier in the shift to the 160s. Remains on levophed at 5 mcg/kg/min. PUI?: Yes COVID19: Positive Objective - Vital Signs Vital signs: Vital Signs - 12hr 05/27/19 05/27/19 05/27/19 18:00 18:15 18:30 Temperature Pulse Rate 104 H 106 H 101 H Respiratory 34 H 27 H 34 H Rate Blood Pressure 123/62 123/62 129/69 O2 Sat by Pulse 94 98 Oximetry 05/27/19 05/27/19 05/27/19 18:45 19:00 19:15 Temperature Pulse Rate 103 H 94 H 155 H Respiratory 32 H 31 H 33 H Rate Blood Pressure 133/67 145/63 145/63 O2 Sat by Pulse 100 95 94 Oximetry 05/27/19 05/27/19 05/27/19 19:30 19:45 20:00 Temperature 97.7 F Pulse Rate 144 H 97 H 96 H Respiratory 26 H 30 H 27 H Rate Blood Pressure 88/48 107/62 126/61 O2 Sat by Pulse 90 93 95 Oximetry 05/27/19 05/27/19 05/27/19 20:15 20:30 20:45 Temperature Pulse Rate 96 H 96 H 152 H Respiratory 29 H 27 H 27 H Rate Blood Pressure 121/58 115/52 124/58 O2 Sat by Pulse 96 97 98 Oximetry 05/27/19 05/27/19 05/27/19 21:00 21:15 21:30 Temperature Pulse Rate 100 H 101 H 98 H Respiratory 26 H 29 H 27 H Rate Blood Pressure 112/54 109/61 116/57 O2 Sat by Pulse 98 99 98 Oximetry 05/27/19 05/27/19 05/27/19 21:45 22:00 22:06 Temperature Pulse Rate 104 H 99 H 100 H Respiratory 30 H 27 H Rate Blood Pressure 110/60 113/63 113/63 O2 Sat by Pulse 99 100 100 Oximetry 05/27/19 05/27/19 05/27/19 22:15 22:18 22:30 Temperature Pulse Rate 102 H 97 H Respiratory 35 H 29 H Rate Blood Pressure 118/65 101/41 O2 Sat by Pulse 100 97 96 Oximetry 05/27/19 05/27/19 05/28/19 22:45 23:34 01:07 Temperature 98.2 F Pulse Rate 95 H Respiratory 28 H Rate Blood Pressure 99/49 113/68 O2 Sat by Pulse 97 96 Oximetry 05/28/19 05/28/19 03:59 04:56 Temperature 98.8 F Pulse Rate Respiratory Rate Blood Pressure 102/57 O2 Sat by Pulse 96 Oximetry - General Appearance General appearance: chronically ill, intubated, frail EENT: ATNC Neck: no JVD, no thyromegaly Respiratory: Present: Decreased Breath Sounds Cardiology: regular Gastrointestinal: normal Integumentary: no rash Musculoskeletal: deferred - Lab 05/26/19 03:43 05/27/19 08:59 Most recent lab results ABG pH 7.310 pH Units (7.350-7.450) L 05/28/19 04:03 ABG pCO2 37.2 mm Hg 05/28/19 04:03 ABG pO2 70.0 mm Hg (80.0-90.0) L 05/28/19 04:03 ABG HCO3 18.3 mmol/L (20.0-26.0) L 05/28/19 04:03 ABG O2 Saturation 92.6 % (95.0-99.0) L 05/28/19 04:03 Calcium 9.0 mg/dL (8.4-10.2) 05/27/19 08:59 Phosphorus 6.50 mg/dL (2.5-4.5) H 05/27/19 08:59 Magnesium 1.90 mg/dL (1.7-2.3) 05/27/19 08:59 - Allied health notes Allied health notes reviewed: nursing Medications & Allergies - Medications Allergies/Adverse Reactions: Allergies No Known Allergies Allergy (Unverified 05/10/19 15:33) Home Medications: Home Medications Medication Instructions Recorded Confirmed Last Taken Type Aspirin [Adult Aspirin] 81 mg PO DAILY 05/10/19 05/20/19 05/11/19 History Cyanocobalamin (Vitamin B-12) 2,500 mcg PO DAILY 05/10/19 05/20/19 05/11/19 History [Vitamin B12] Ferrous Sulfate [Feosol 325 MG tab] 325 mg PO DAILY 05/10/19 05/20/19 05/11/19 History Gabapentin 100 mg PO TID 05/10/19 05/20/19 05/11/19 History Insulin Aspart (Nf) [NovoLOG 100 10 unit SQ TIDAC 05/10/19 05/20/19 05/11/19 History UNITS/ML VIAL] Insulin Glargine [Lantus VIAL] 36 unit SQ QAM 05/10/19 05/20/19 05/11/19 History Tizanidine HCl [Tizanidine 2mg tab] 2 mg PO DAILY 05/10/19 05/20/19 05/11/19 History Torsemide [Demadex] 20 mg PO BID 05/10/19 05/20/19 05/11/19 History amLODIPine 10 mg PO BID 05/10/19 05/20/19 05/12/19 04:30 History calcitrioL [Rocaltrol] 0.5 mcg PO DAILY 05/10/19 05/20/19 05/11/19 History carvediloL [Coreg] 12.5 mg PO BID 05/10/19 05/20/19 05/12/19 04:30 History oxyCODONE /ACETAMINOPHEN [Percocet 1 tab PO Q6HR PRN #24 tablet 05/12/19 05/20/19 Unknown Rx 5/325 mg] Active Medications: Generic Name Dose Route Start Last Admin Trade Name Freq PRN Reason Stop Dose Admin Acetaminophen 650 mg 05/15/19 23:04 05/21/19 16:17 Tylenol PO 650 mg Q4H PRN Administration Pain MILD(1-3)/Fever >100.5/MELVIN Acetaminophen 650 mg 05/16/19 01:28 05/16/19 01:44 Tylenol [place] 650 mg Q6H PRN Administration TEMP > 100.3 Amiodarone HCl 200 mg 05/27/19 14:00 05/27/19 21:36 Cordarone FEEDTUBE 200 mg BID LUIS M Administration Lipase/Protease/Amylase 1 each 05/16/19 11:14 Pancreamanda Gillespie 10,500 Unit FEEDTUBE PRN PRN For Clogged Feeding Tube Dextrose 25 ml 05/25/19 13:00 05/25/19 12:20 D50w (25gm) Syringe IV 25 ml Q30MIN PRN Administration BLOOD GLUCOSE </=80 Famotidine 20 mg 05/18/19 10:00 05/27/19 11:53 Pepcid PO 20 mg DAILY LUIS M Administration Heparin Sodium (Porcine) 5,000 unit 05/24/19 22:00 05/27/19 21:36 Heparin SUB-Q 5,000 unit Q12HR LUIS M Administration Hydromorphone HCl 0.25 mg 05/15/19 23:04 05/25/19 12:22 Dilaudid IV 0.25 mg Q3H PRN Administration Pain, Moderate (4-6) Hydrophilic Ointment 1 applic 05/15/19 09:48 Vaseline Lip Therapy TP Q2HR PRN Dry Lips Propofol 1,000 mg in 100 mls @ 2.585 mls/hr 05/15/19 11:00 05/28/19 02:37 Diprivan 10 Mg/Ml IV 20 mcg/kg/min TITR LUIS M 10.342 mls/hr Administration Protocol 5 MCG/KG/MIN Norepinephrine 4 mg in 250 mls @ 18.75 mls/hr 05/21/19 23:45 05/28/19 02:37 Levophed Drip 4 Mg/Ns 250 Ml IV 5 mcg/min TITR LUIS M 18.75 mls/hr Administration Protocol 5 MCG/MIN Sodium Chloride 100 mls @ 999 mls/hr 05/26/19 09:30 Nacl 0.9% IV COBY PRN Hypotension Vasopressin 20 unit/ Sodium 101 mls @ 9.09 mls/hr 05/27/19 15:14 Chloride IV TITR LUIS M 0.03 UNITS/MIN Insulin Human Lispro 0 unit 05/16/19 00:00 05/28/19 00:35 Humalog SUB-Q 10 unit Q6HR [facility] Administration Protocol Metoclopramide HCl 5 mg 05/15/19 23:24 Reglan IV Q6H PRN Nausea And Vomiting Metoclopramide HCl 5 mg 05/25/19 14:00 05/27/19 21:36 Reglan IV 5 mg Q8HR LUIS M Administration Multi-Ingred Cream/Lotion/Oil/Oint 1 applic 05/15/19 09:48 05/25/19 18:29 Artificial Tears Ophth Oint OU 1 applic Q4HR PRN Administration Dry Eye(s) Ondansetron HCl 4 mg 05/15/19 23:04 05/19/19 18:30 Zofran IV 4 mg Q8H PRN Administration Nausea And Vomiting Simple Syrup 15 ml 05/16/19 11:14 Simple Syrup FEEDTUBE PRN PRN Hypoglycemia Simple Syrup 30 ml 05/16/19 11:14 Simple Syrup FEEDTUBE PRN PRN Hypoglycemia Sodium Bicarbonate 325 mg 05/16/19 11:14 Sodium Bicarbonate FEEDTUBE PRN PRN For Clogged Feeding Tube Sodium Bicarbonate 650 mg 05/21/19 15:00 05/27/19 20:36 Sodium Bicarbonate PO 650 mg TID LUIS M Administration Sodium Chloride 10 ml 05/16/19 10:00 05/27/19 21:37 Sodium Chloride Flush Syringe 10 Ml IV 10 ml BID LUIS M Administration Sodium Chloride 10 ml 05/15/19 23:04 Sodium Chloride Flush Syringe 10 Ml IV PRN PRN LINE FLUSH
[2019-05-28] MEDS: METOCLOPRAMIDE 10 MG/2 ML INJ IV SCH ×2 (06:18→21:29)
--- NOTE | 2019-05-28 08:02 | Progress Note ---
Assessment and Plan Assessment and plan: --Covid-19 confirmed Covid19 paperwork completed by ED F/U ferritin, LDH, D-Dimer and CRP --Acute hypoxic respiratory failure; requiring intubation On ventilatory support, nebulizers Supportive care, pulmonary critical following Wean as tolerated per pulm --Bilateral patchy groundglass opacities/pneumonia Isolation precautions, cultures ID following --Acute metabolic encephalopathy; Present on admission, probably secondary to hypoxemia --Infected AV graft for dialysis; IV antibiotics, vascular,ID following --End-stage renal disease on hemodialysis; HD per schedulen nephrology following --Type 2 diabetes mellitus; moderate control Accu-Chek sliding scale coverage ADA diet and insulin as needed HbA1c 7.7 --Moderate malnutrition/hypoalbuminemia Due to underlying disease process, nutrition supplements Nutrition consult as needed --Lactic acidosis; rule out infections Supportive care --DVT prophylaxis; Lovenox --Obesity BMI 31.6; Patient needs weight reduction when medically stable Anemia Hgb 5.9. Transfuse 2 units PRBC and repeat obtain stool occult blood --Full CODE STATUS; Monitor closely and adjust management as needed Very poor prognosis Plan of care reviewed with the patient's nurse 05/18/2019 Covid-19 confirmed Patient currently with AC mode, rate20, tidal volume 450, FiO2 50% and PEEP 6. Continue hydroxychloroquine 400 mg p.o. twPatient is critically ill with poor prognosis. Wean as tolerated per pulmonarice daily x1 day then 200 mg p.o. x 4 twice daily for 5 days. Continue cefepime per ID. Follow-up inflammatory markers of ferritin, LDH, d-dimer and CRP. 05/19/19 Patient currently with AC mode, rate20, tidal volume 450, FiO2 50% and PEEP 6. Patient is critically ill with poor prognosis. Continue Plaquenil 200 mg p.o. x 4 twice daily for 5 days. Continue cefepime per ID. Follow-up inflammatory markers of ferritin, LDH, d-dimer and CRP. Discussed confirmed positive test with daughter 05/20/2019. Continue Plaquenil taper per ID recommendations. Continue mechanical ventilation with AC mode, rate 14, tidal volume 450 and PEEP 6. Follow-up inflammatory markers of ferritin, LDH, d-dimer and CRP. 05/21/2019. Patient remains critically ill on mechanical ventilation AC mode with rate 14, tidal volume 450, FiO2 40% and PEEP of 6. Patient has strep pneumonia in sputum and likely has bacterial pneumonia exacerbated with COVID-19. Ferritin and LDH elevated but d-dimer decreased. Follow-up repeat chest x-ray. Continue antibiotics per IDceftriaxone. Continue Plaquenil/zinc. Continue CO VID isolation precautions. Follow-up inflammatory markers. Patient with poor prognosis and high risk mortality. 05/22/2019. Patient remains critically ill on mechanical ventilation AC mode with rate 25, tidal volume 450, FiO2 65% and PEEP of 8. Patient has strep pneumonia in sputum and likely has bacterial pneumonia exacerbated with COVID-19. Ferritin and LDH elevated but d-dimer decreased. Follow-up repeat chest x-ray. Continue antibiotics per IDceftriaxone. Continue Plaquenil/zinc. Continue COVID isolation precautions. Follow-up inflammatory markers. Continue hemodialysis per nephrology and evaluate on a daily basis. Patient with poor prognosis and high risk mortality. 05/23/2019 patient with covid-19 infection. She is critically ill, still intubated on vent. 05/24/2019 patient hgb 5.9. Transfuse 2 Units PRBC. I discussed this with Nurse. She is still critically ill, intubated 05/25/2019 patient transfused 2 units PRBC, hgb now 9.8. Off levophed. 05/26/19 Patient still critically ill, still intubated, on vent, Continue Levophed. 05/27/19 patient had SVT yesterday in evening, treated with Adenosine iv. 05/28/19 patient had episodes of SVT yesterday, resolved. started on Amiodarone on recommendation from cardiology. The high probability of a clinically significant, sudden or life threatening deterioration of the [immunologic and respiratory] system(s) required my full and direct attention, intervention and personal management. The aggregate critical care time was [34] minutes. This time is in addition to time spent performing reported procedures but includes the following: [x] Data Review and interpretation [x] Patient assessment and monitoring of vital signs [x] Documentation [x] Medication orders and management History Interval history: Patient with Covid-19 infection, fever Patient had SVT yesterday treated with Adenosine PUI?: Yes COVID19: Positive Hospitalist Physical - Physical exam Narrative exam: GEN: Not in acute distress, obese HEENT: Normocephalic, atraumatic, Neck: supple, No JVD Lungs: Clear to auscultation bilaterally heart;S1 and S2 reg, no murmurs, rubs or gallop Abd:soft, non tender, non distended, normal bowel sounds, Ext: No edema, no clubbing, no cyanosis, Neuro: Intubated - Constitutional Vitals: Temp Pulse Resp BP Pulse Ox 98.8 F 95 H 32 H 116/52 94 05/28/19 03:59 05/28/19 06:00 05/28/19 06:00 05/28/19 06:00 05/28/19 06:00 General appearance: Present: other (Currently on a ventilator and sedated) Results - Labs CBC & Chem 7: 05/26/19 03:43 05/27/19 08:59 Labs: Laboratory Last Values WBC 20.3 K/mm3 (4.5-11.0) H 05/26/19 03:43 RBC 3.56 M/mm3 (3.65-5.03) L 05/26/19 03:43 Hgb 9.7 gm/dl (10.1-14.3) L 05/26/19 03:43 Hct 29.4 % (30.3-42.9) L 05/26/19 03:43 MCV 82 fl (79-97) 05/26/19 03:43 MCH 27 pg (28-32) L 05/26/19 03:43 MCHC 33 % (30-34) 05/26/19 03:43 RDW 15.1 % (13.2-15.2) 05/26/19 03:43 Plt Count 265 K/mm3 (140-440) 05/26/19 03:43 Lymph % (Auto) 6.4 % (13.4-35.0) L 05/17/19 05:43 [place] % (Auto) 4.9 % (0.0-7.3) 05/17/19 05:43 Eos % (Auto) 0.9 % (0.0-4.3) 05/17/19 05:43 Baso % (Auto) 0.3 % (0.0-1.8) 05/17/19 05:43 Lymph # 0.5 K/mm3 (1.2-5.4) L 05/17/19 05:43 [place] # 0.4 K/mm3 (0.0-0.8) 05/17/19 05:43 Eos # 0.1 K/mm3 (0.0-0.4) 05/17/19 05:43 Baso # 0.0 K/mm3 (0.0-0.1) 05/17/19 05:43 Seg Neutrophils % 87.5 % (40.0-70.0) H 05/17/19 05:43 Seg Neutrophils # 7.2 K/mm3 (1.8-7.7) 05/17/19 05:43 D-Dimer 7143.61 ng/mlDDU (0-234) H 05/26/19 21:48 Heparin Anti-Xa Level 0.54 U.I./ml (0.3-0.7) 05/24/19 08:45 ABG pH 7.310 pH Units (7.350-7.450) L 05/28/19 04:03 ABG pCO2 37.2 mm Hg 05/28/19 04:03 ABG pO2 70.0 mm Hg (80.0-90.0) L 05/28/19 04:03 ABG HCO3 18.3 mmol/L (20.0-26.0) L 05/28/19 04:03 ABG O2 Saturation 92.6 % (95.0-99.0) L 05/28/19 04:03 ABG O2 Content 10.2 (0.0-44) 05/28/19 04:03 ABG Base Excess -7.3 mmol/L (-2.0-3.0) L 05/28/19 04:03 ABG Hemoglobin 8.0 gm/dl (12.0-16.0) L 05/28/19 04:03 ABG Carboxyhemoglobin 1.4 % (0.0-5.0) 05/28/19 04:03 ABG Methemoglobin 0.6 % (0.0-1.5) 05/28/19 04:03 Oxyhemoglobin 90.8 % (95.0-99.0) L 05/28/19 04:03 FiO2 60 % 05/28/19 04:03 Sodium 138 mmol/L (137-145) 05/27/19 08:59 Potassium 3.3 mmol/L (3.6-5.0) L 05/27/19 08:59 Chloride 94.3 mmol/L (98-107) L 05/27/19 08:59 Carbon Dioxide 14 mmol/L (22-30) L 05/27/19 08:59 Anion Gap 33 mmol/L 05/27/19 08:59 BUN 88 mg/dL (7-17) H 05/27/19 08:59 Creatinine 6.8 mg/dL (0.7-1.2) H 05/27/19 08:59 Estimated GFR 7 ml/min 05/27/19 08:59 BUN/Creatinine Ratio 13 % 05/27/19 08:59 Glucose 296 mg/dL (65-100) H 05/27/19 08:59 POC Glucose 362 (70-105) H 05/28/19 05:49 Hemoglobin A1c 7.7 % (4-6) H 05/15/19 Unknown Lactic Acid 1.40 mmol/L (0.7-2.0) 05/15/19 11:41 Calcium 9.0 mg/dL (8.4-10.2) 05/27/19 08:59 Phosphorus 6.50 mg/dL (2.5-4.5) H 05/27/19 08:59 Magnesium 1.90 mg/dL (1.7-2.3) 05/27/19 08:59 Ferritin > 2000.0 ng/mL (13.0-400.0) H 05/26/19 21:48 Total Bilirubin 0.30 mg/dL (0.1-1.2) 05/25/19 04:01 AST 128 units/L (5-40) H 05/25/19 04:01 ALT 43 units/L (7-56) 05/25/19 04:01 Alkaline Phosphatase 142 units/L (35-129) H 05/25/19 04:01 Lactate Dehydrogenase 925 units/L (91-180) H 05/26/19 03:43 C-Reactive Protein 22.20 mg/dL (0.00-1.30) H 05/26/19 03:43 NT-Pro-B Natriuret Pep 7240 pg/mL (0-900) H 05/15/19 09:11 Total Protein 7.7 g/dL (6.3-8.2) 05/25/19 04:01 Albumin 2.9 g/dL (3.9-5) L 05/25/19 04:01 Albumin/Globulin Ratio 0.6 % 05/25/19 04:01 Procalcitonin 21.80 ng/mL (<0.15) 05/24/19 05:00 Urine Color Straw (Yellow) 05/15/19 12:07 Urine Turbidity Clear (Clear) 05/15/19 12:07 Urine pH 7.0 (5.0-7.0) 05/15/19 12:07 Ur Specific [place] 1.009 (1.003-1.030) 05/15/19 12:07 Urine Protein 100 mg/dl mg/dL (Negative) 05/15/19 12:07 Urine Glucose (UA) >=500 mg/dL (Negative) 05/15/19 12:07 Urine Ketones Neg mg/dL (Negative) 05/15/19 12:07 Urine Blood Sm (Negative) 05/15/19 12:07 Urine Nitrite Neg (Negative) 05/15/19 12:07 Urine Bilirubin Neg (Negative) 05/15/19 12:07 Urine Urobilinogen < 2.0 mg/dL (<2.0) 05/15/19 12:07 Ur Leukocyte Esterase Neg (Negative) 05/15/19 12:07 Urine WBC (Auto) 3.0 /HPF (0.0-6.0) 05/15/19 12:07 Urine RBC (Auto) 18.0 /HPF (0.0-6.0) 05/15/19 12:07 Urine Mucus Few /HPF 05/15/19 12:07 Random Vancomycin 11.9 ug/mL (0-40.0) 05/17/19 14:57 Salicylates < 0.3 mg/dL (2.8-20.0) L 05/15/19 13:10 Acetaminophen < 5.0 ug/mL (10.0-30.0) L 05/15/19 13:10 Hepatitis A IgM Ab Non-reactive (NonReactive) 05/22/19 10:50 Hep Bs Antigen Non-reactive (Negative) 05/22/19 10:50 Hep B Core IgM Ab Non-reactive (NonReactive) 05/22/19 10:50 Hepatitis C Antibody Non-reactive (NonReactive) 05/22/19 10:50 Miscellaneous Test See scanned result 05/16/19 Unknown Blood Type O POSITIVE 05/24/19 08:45 Antibody Screen Negative 05/24/19 08:45 Crossmatch See Detail 05/24/19 08:45 Microbiology: Microbiology 05/28/19 01:10 Peripheral/Venous Blood Fungal Culture - Preliminary Culture in Progress 05/28/19 01:10 Peripheral/Venous Blood Culture - Preliminary Culture in Progress 05/28/19 01:10 Peripheral/Venous Blood Fungal Culture - Preliminary Culture in Progress Castell[place]/IV: Voiding Method Condom Catheter IV Catheter Type [Right VAS Cath Femoral] IV Catheter Type [Left INT / Saline Lock External Jugular] IV Catheter Type [Right Wrist] INT / Saline Lock IV Catheter Type [Right INT / Saline Lock External Jugular] Active Medications - Current Medications Current Medications: Generic Name Dose Route Start Last Admin Trade Name Freq PRN Reason Stop Dose Admin Acetaminophen 650 mg 05/15/19 23:04 05/21/19 16:17 Tylenol PO 650 mg Q4H PRN Administration Pain MILD(1-3)/Fever >100.5/MELVIN Acetaminophen 650 mg 05/16/19 01:28 05/16/19 01:44 Tylenol [place] 650 mg Q6H PRN Administration TEMP > 100.3 Amiodarone HCl 200 mg 05/27/19 14:00 05/27/19 21:36 Cordarone FEEDTUBE 200 mg BID LUIS M Administration Lipase/Protease/Amylase 1 each 05/16/19 11:[address] 10,500 Unit FEEDTUBE PRN PRN For Clogged Feeding Tube Dextrose 25 ml 05/25/19 13:00 05/25/19 12:20 D50w (25gm) Syringe IV 25 ml Q30MIN PRN Administration BLOOD GLUCOSE </=80 Famotidine 20 mg 05/18/19 10:00 05/27/19 11:53 Pepcid PO 20 mg DAILY LUIS M Administration Heparin Sodium (Porcine) 5,000 unit 05/24/19 22:00 05/27/19 21:36 Heparin SUB-Q 5,000 unit Q12HR LUIS M Administration Hydromorphone HCl 0.25 mg 05/15/19 23:04 05/25/19 12:22 Dilaudid IV 0.25 mg Q3H PRN Administration Pain, Moderate (4-6) Hydrophilic Ointment 1 applic 05/15/19 09:48 Vaseline Lip Therapy TP Q2HR PRN Dry Lips Propofol 1,000 mg in 100 mls @ 2.585 mls/hr 05/15/19 11:00 05/28/19 02:37 Diprivan 10 Mg/Ml IV 20 mcg/kg/min TITR LUIS M 10.342 mls/hr Administration Protocol 5 MCG/KG/MIN Norepinephrine 4 mg in 250 mls @ 18.75 mls/hr 05/21/19 23:45 05/28/19 02:37 Levophed Drip 4 Mg/Ns 250 Ml IV 5 mcg/min TITR LUIS M 18.75 mls/hr Administration Protocol 5 MCG/MIN Sodium Chloride 100 mls @ 999 mls/hr 05/26/19 09:30 Nacl 0.9% IV COBY PRN Hypotension Vasopressin 20 unit/ Sodium 101 mls @ 9.09 mls/hr 05/27/19 15:14 Chloride IV TITR LUIS M 0.03 UNITS/MIN Insulin Human Lispro 0 unit 05/16/19 00:00 05/28/19 06:19 Humalog SUB-Q 10 unit Q6HR [facility] Administration Protocol Metoclopramide HCl 5 mg 05/15/19 23:24 Reglan IV Q6H PRN Nausea And Vomiting Metoclopramide HCl 5 mg 05/25/19 14:00 05/28/19 06:18 Reglan IV 5 mg Q8HR [facility] Administration Multi-Ingred Cream/Lotion/Oil/Oint 1 applic 05/15/19 09:48 05/25/19 18:29 Artificial Tears Ophth Oint OU 1 applic Q4HR PRN Administration Dry Eye(s) Ondansetron HCl 4 mg 05/15/19 23:04 05/19/19 18:30 Zofran IV 4 mg Q8H PRN Administration Nausea And Vomiting Simple Syrup 15 ml 05/16/19 11:14 Simple Syrup FEEDTUBE PRN PRN Hypoglycemia Simple Syrup 30 ml 05/16/19 11:14 Simple Syrup FEEDTUBE PRN PRN Hypoglycemia Sodium Bicarbonate 325 mg 05/16/19 11:14 Sodium Bicarbonate FEEDTUBE PRN PRN For Clogged Feeding Tube Sodium Bicarbonate 650 mg 05/21/19 15:00 05/27/19 20:36 Sodium Bicarbonate PO 650 mg TID LUIS M Administration Sodium Chloride 10 ml 05/16/19 10:00 05/27/19 21:37 Sodium Chloride Flush Syringe 10 Ml IV 10 ml BID LUIS M Administration Sodium Chloride 10 ml 05/15/19 23:04 Sodium Chloride Flush Syringe 10 Ml IV PRN PRN LINE FLUSH Nutrition/Malnutrition Assess - Dietary Evaluation Nutrition/Malnutrition Findings: Nutrition Notes Start: 05/16/19 08:31 Freq: Status: Active Protocol: Document 05/22/19 09:52 LM (Rec: 05/22/19 09:56 LM [id number]) Nutrition Notes Initial or Follow up Reassessment Current Diagnosis CKD (stage V CKD),Diabetes, Hypertension,Respiratory Failure Other Pertinent Diagnosis AV graft infection, fever, COVID-19 positive Current Diet Nepro 1.8 at 45ml/hr Labs/Tests BG 493 Pertinent Medications Humalog Lantus Levophed Zinc Height 5 ft 5 in Weight 82.8 kg [place] Body Weight (kg) 56.81 BMI 30.4 Weight Status Obese Subjective/Other Information Pt tolerating TF at goal rate. Percent of energy/protein needs met: 100%/76% Burn Absent Trauma Absent Current % PO Negligible Minimum of two criteria No Reduced [employer] Strength Measurably Reduced (severe) #1 Nutrition Diagnosis Inadequate oral intake Diagnosis Progress(for reassessment Continues documentation) Is patient on ventilator? Yes Is Patient Ambulatory and/or Out of Bed No REE-([place]-[facility]. Jeor-confined to bed) [phone] Calculation Used for Recommendations [facility] Additional Notes Protein: 114g (>/=2g/kg using IBW 57kg) Fluid: per MD Nutrition Intervention Change Diet Order: TF Nutrition Support: Nepro 1.8 at 45ml/hr Flush 200 ml q4h Kcal 1,944 Protein (gm) 87 Fluid (mL) 785 Goal #1 TF tolerance Goal #2 Meet at least 75% of energy and protein needs via TF Anticipated Discharge Needs: unable to determine at this time Follow-Up By: 05/29/19 Additional Comments F/U for TF tolerance
[2019-05-28] MEDS: HEPARIN 5,000 UNIT/1 ML VIAL SUB-Q SCH ×2 (10:37→21:31)
[2019-05-28] MEDS: SODIUM BICARBONATE 650 MG TAB PO SCH ×2 (10:37→19:58)
[2019-05-28] MEDS: AMIODARONE 200 MG TAB FEEDTUBE SCH ×2 (10:38→21:30)
[2019-05-28] MEDS: FAMOTIDINE 20 MG TAB PO SCH (10:38)
--- NOTE | 2019-05-28 10:52 | XRay Report ---
CHEST 1 VIEW, 05/28/2019 5:16 AM CLINICAL INFORMATION/INDICATION: Respiratory failure COMPARISON: Chest radiograph, 05/25/2019 at 1:16 PM FINDINGS: SUPPORT DEVICES: Endotracheal tube and esophagogastric tube project in expected position. HEART: The cardiac silhouette is normal in size. LUNGS/PLEURA: Diffuse bilateral pulmonary opacities do not appear significantly changed. ADDITIONAL FINDINGS: Diffuse subcutaneous air is seen overlying the chest. IMPRESSION: 1. Stable appearance of diffuse bilateral pulmonary opacities. Signer Name: Anamaria Fagan MD Signed: 05/28/2019 10:48 AM Workstation Name: [id number]
--- NOTE | 2019-05-28 11:10 | Progress Note ---
Assessment and Plan Acute hypoxemic respiratory failure orally intubated on MVS COVID 19 POSITIVE Bilateral pneumonia, Strep in tracheal aspirate Oropharyngeal dysphagia Acute metabolic encephalopathy Infected AV graft for dialysis; ESRD on HD Type 2 diabetes mellitus; moderate control Lactic acidosis, present on admission Hypernatremia-reolved Worsening leukocytosis and ongoing need for vasopressor support. Possible secondary infection with septic shock Norton culture, CXR- follow cultures. CXR reviewed Broad spectrum antibiotics initiated DIscussed with ID Continue all other care as documented below. -Continue with MVS, Lung protective strategies, monitor airway pressures -VAP bundle addressed -Continue aspiration precautions, HOB>40 -Continue daily assessment for readiness for SBT -Continue Stress ulcer prophylaxis -Continue VTE prophylaxis -Supportive transfusions as indicated to keep HgB >7g/dL -Continue enteric nutritional support at goal rate. Monitor glycemic control, with target blood glucose 140-180 mg/dL while crit ically ill. -Avoid hypoglycemia- Poor glycemic control - Continue to wean supplemental oxygen for target O2 sats > 92% -ABG and CXR in am -ContinueCOVID isolationprecautions per [facility] protocol -Continue to avoid nephrotoxins, adjust all medications for GFR and CrCL -Supportive HD per renal service - Continue bronchodilators with pulmonary hygiene - Continue prn analgesia per CPOT score - Continue to maintain of sleep-wake cycle, avoid delirium - PT/OT/ROM exercises - Continue mobility protocol , off loading and skin assessment per protocol for pressure ulcer prevention - continue other care per attending / other consultants CONDITION: CRITICAL PROGNOSIS: GUARDED-POOR CODE STATUS: FULL CODE The high probability of a clinically significant, sudden or life-threatening deterioration of the [respiratory, renal, Neurology] system(s) required my full and direct attention, intervention and personal management. The aggregate critical care time was [31] minutes without overlap. Time includes spent on; [x] Data Review and interpretation [x] Patient assessment and monitoring of vital signs [x] Documentation [x] Medication orders and management Subjective Date of service: 05/28/19 Principal diagnosis: Ac hypoxemic resp failure; Hakeem pneumonia; Sepsis; COVID-19 infection; ESRD Interval history: Patient is seen today for: Acute hypoxemic respiratory failure orally intubated on MVS;COVID 19 POSITIVE;Bilateral pneumonia;Oropharyngeal dysphagia ;Acute metabolic encephalopathy Seen and examined at bedside; 24hour events reviewed; nursing and respiratory ca re staff consulted; no adverse overnight events reported to me; Vitals, labs, medications, chart reviewed. Remains on mechanical ventilatory support. Remains on PEEP of 10 and FIO2 of 75% SVT yesterday requiring IV adenosine. 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 S/p tocilizumab IV x 1 05/23/2019 S/p plaquenil and zinc total 5 days s/p Ceftriaxone PUI?: Yes COVID19: Positive Objective Vital Signs - 12hr 05/27/19 05/27/19 05/27/19 23:15 23:30 23:34 Temperature 98.2 F Pulse Rate 93 H 98 H Respiratory 29 H 28 H Rate Blood Pressure 101/62 104/65 O2 Sat by Pulse 97 97 Oximetry 05/27/19 05/28/19 05/28/19 23:45 00:00 00:15 Temperature Pulse Rate 92 H 89 96 H Respiratory 29 H 25 H 29 H Rate Blood Pressure 104/65 97/58 103/61 O2 Sat by Pulse 98 97 97 Oximetry 05/28/19 05/28/19 05/28/19 00:30 00:45 01:00 Temperature Pulse Rate 100 H 93 H 92 H Respiratory 27 H 27 H 31 H Rate Blood Pressure 104/65 97/64 113/68 O2 Sat by Pulse 97 96 96 Oximetry 05/28/19 05/28/19 05/28/19 01:07 01:15 01:30 Temperature Pulse Rate 91 H 91 H Respiratory 29 H 32 H Rate Blood Pressure 113/68 102/66 112/56 O2 Sat by Pulse 96 95 94 Oximetry 05/28/19 05/28/19 05/28/19 01:45 02:00 02:15 Temperature Pulse Rate 102 H 90 Respiratory 30 H 27 H 35 H Rate Blood Pressure 112/56 112/64 112/64 O2 Sat by Pulse 95 94 94 Oximetry 05/28/19 05/28/19 05/28/19 02:31 02:45 03:00 Temperature Pulse Rate Respiratory 35 H 28 H 31 H Rate Blood Pressure 161/82 161/82 93/46 O2 Sat by Pulse 94 93 94 Oximetry 04/02/0305/28/19 05/28/19 03:15 03:30 03:45 Temperature Pulse Rate 94 H 95 H 96 H Respiratory 27 H 29 H 29 H Rate Blood Pressure 92/48 95/52 93/60 O2 Sat by Pulse 95 95 97 Oximetry 05/28/19 05/28/19 05/28/19 03:59 04:00 04:15 Temperature 98.8 F Pulse Rate 99 H 97 H Respiratory 30 H 26 H Rate Blood Pressure 101/62 102/63 O2 Sat by Pulse 97 97 Oximetry 05/28/19 05/28/19 05/28/19 04:30 04:45 04:56 Temperature Pulse Rate 98 H 100 H Respiratory 30 H 29 H Rate Blood Pressure 111/63 102/57 102/57 O2 Sat by Pulse 97 97 96 Oximetry 05/28/19 05/28/19 05/28/19 05:00 05:15 05:30 Temperature Pulse Rate 96 H 96 H 94 H Respiratory 27 H 25 H 25 H Rate Blood Pressure 118/58 130/65 134/62 O2 Sat by Pulse 96 96 95 Oximetry 05/28/19 05/28/19 05/28/19 05:45 06:00 08:00 Temperature 98.9 F Pulse Rate 96 H 95 H Respiratory 30 H 32 H Rate Blood Pressure 133/65 116/52 O2 Sat by Pulse 95 94 Oximetry 05/28/19 08:06 Temperature Pulse Rate 95 H Respiratory Rate Blood Pressure 116/52 O2 Sat by Pulse 94 Oximetry Constitutional: appears uncomfortable, other (elderly looking obese AAF, normocephalic with no mildly increased work of breathing) Eyes: non-icteric ENT: oropharynx moist, other (ETT 24 cm KARLA) Neck: supple, no lymphadenopathy Effort: mildly labored Ascultation: Bilateral: clear, diminished breath sounds, rhonchi Percussion: Bilateral: not dull Cardiovascular: regular rate and rhythm Gastrointestinal: normoactive bowel sounds, soft, non-tender, non-distended Integumentary: rash Extremities: no cyanosis, no edema, pulses normal, no ischemia or petechiae Neurologic: normal mental status, non-focal exam (grossly), pupils equal and r ound Psychiatric: anxious CBC and BMP: 05/30/19 04:36 05/30/19 04:36 ABG, PT/INR, D-dimer: ABG ABG pH 7.310 pH Units (7.350-7.450) L 05/28/19 04:03 ABG pCO2 37.2 mm Hg 05/28/19 04:03 ABG pO2 70.0 mm Hg (80.0-90.0) L 05/28/19 04:03 ABG O2 Saturation 92.6 % (95.0-99.0) L 05/28/19 04:03 PT/INR, D-dimer D-Dimer 7143.61 ng/mlDDU (0-234) H 05/26/19 21:48 Abnormal lab findings: Abnormal Labs 05/15/19 05/15/19 05/15/19 08:07 08:31 09:11 WBC 11.9 H RBC 3.41 L Hgb 9.3 L Hct 30.1 L MCH 27 L RDW Lymph % (Auto) Lymph # Seg Neutrophils % Seg Neutrophils # D-Dimer ABG pH ABG pO2 ABG HCO3 ABG O2 Saturation ABG Base Excess ABG Hemoglobin Oxyhemoglobin Sodium 136 L Potassium Chloride Carbon Dioxide 15 L D BUN 74 H Creatinine 5.8 H Glucose 267 H POC Glucose 344 H Hemoglobin A1c Lactic Acid Calcium Phosphorus Ferritin AST ALT < 5 L Alkaline Phosphatase Lactate Dehydrogenase C-Reactive Protein NT-Pro-B Natriuret Pep Albumin 3.2 L Salicylates Acetaminophen Crossmatch 05/15/19 05/15/19 05/15/19 09:11 09:11 09:30 WBC RBC Hgb Hct MCH RDW Lymph % (Auto) Lymph # Seg Neutrophils % Seg Neutrophils # D-Dimer ABG pH ABG pO2 ABG HCO3 ABG O2 Saturation ABG Base Excess -2.8 L ABG Hemoglobin 8.2 L Oxyhemoglobin 94.6 L Sodium Potassium Chloride Carbon Dioxide BUN Creatinine Glucose POC Glucose Hemoglobin A1c Lactic Acid 3.50 H* Calcium Phosphorus Ferritin AST ALT Alkaline Phosphatase Lactate Dehydrogenase C-Reactive Protein NT-Pro-B Natriuret Pep 7240 H Albumin Salicylates Acetaminophen Crossmatch 05/15/19 05/15/19 05/15/19 13:10 13:10 Unknown WBC RBC Hgb Hct MCH RDW Lymph % (Auto) Lymph # Seg Neutrophils % Seg Neutrophils # D-Dimer ABG pH ABG pO2 ABG HCO3 ABG O2 Saturation ABG Base Excess ABG Hemoglobin Oxyhemoglobin Sodium Potassium Chloride Carbon Dioxide BUN Creatinine Glucose POC Glucose Hemoglobin A1c 7.7 H Lactic Acid Calcium Phosphorus Ferritin AST ALT Alkaline Phosphatase Lactate Dehydrogenase C-Reactive Protein NT-Pro-B Natriuret Pep Albumin Salicylates < 0.3 L Acetaminophen < 5.0 L Crossmatch 05/16/19 05/16/19 05/16/19 03:44 03:58 13:08 WBC 12.9 H RBC Hgb Hct MCH RDW Lymph % (Auto) 7.1 L Lymph # 0.9 L Seg Neutrophils % 87.7 H Seg Neutrophils # 11.3 H D-Dimer ABG pH ABG pO2 213.3 H ABG HCO3 ABG O2 Saturation 99.3 H ABG Base Excess ABG Hemoglobin 7.5 L Oxyhemoglobin Sodium Potassium Chloride Carbon Dioxide BUN Creatinine Glucose POC Glucose 231 H Hemoglobin A1c Lactic Acid Calcium Phosphorus Ferritin AST ALT Alkaline Phosphatase Lactate Dehydrogenase C-Reactive Protein NT-Pro-B Natriuret Pep Albumin Salicylates Acetaminophen Crossmatch 05/16/19 05/16/19 05/17/19 18:28 23:34 05:02 WBC RBC Hgb Hct MCH RDW Lymph % (Auto) Lymph # Seg Neutrophils % Seg Neutrophils # D-Dimer ABG pH ABG pO2 91.9 H ABG HCO3 ABG O2 Saturation ABG Base Excess -3.6 L ABG Hemoglobin 7.2 L Oxyhemoglobin Sodium Potassium Chloride Carbon Dioxide BUN Creatinine Glucose POC Glucose 181 H 177 H Hemoglobin A1c Lactic Acid Calcium Phosphorus Ferritin AST ALT Alkaline Phosphatase Lactate Dehydrogenase C-Reactive Protein NT-Pro-B Natriuret Pep Albumin Salicylates Acetaminophen Crossmatch 05/17/19 05/17/19 05/17/19 05:43 05:43 15:15 WBC RBC 3.06 L Hgb 8.6 L Hct 26.1 L D MCH RDW Lymph % (Auto) 6.4 L Lymph # 0.5 L Seg Neutrophils % 87.5 H Seg Neutrophils # D-Dimer ABG pH ABG pO2 ABG HCO3 ABG O2 Saturation ABG Base Excess ABG Hemoglobin Oxyhemoglobin Sodium Potassium Chloride Carbon Dioxide 17 L BUN 76 H Creatinine 5.4 H Glucose 231 H POC Glucose 302 H Hemoglobin A1c Lactic Acid Calcium Phosphorus Ferritin AST ALT Alkaline Phosphatase Lactate Dehydrogenase C-Reactive Protein NT-Pro-B Natriuret Pep Albumin Salicylates Acetaminophen Crossmatch 05/17/19 05/18/19 05/18/19 18:44 00:04 05:35 WBC RBC Hgb Hct MCH RDW Lymph % (Auto) Lymph # Seg Neutrophils % Seg Neutrophils # D-Dimer ABG pH ABG pO2 ABG HCO3 ABG O2 Saturation ABG Base Excess ABG Hemoglobin Oxyhemoglobin Sodium Potassium Chloride Carbon Dioxide BUN Creatinine Glucose POC Glucose 258 H 331 H 329 H Hemoglobin A1c Lactic Acid Calcium Phosphorus Ferritin AST ALT Alkaline Phosphatase Lactate Dehydrogenase C-Reactive Protein NT-Pro-B Natriuret Pep Albumin Salicylates Acetaminophen Crossmatch 05/18/19 05/18/19 05/18/19 11:15 11:15 11:15 WBC RBC Hgb Hct MCH RDW Lymph % (Auto) Lymph # Seg Neutrophils % Seg Neutrophils # D-Dimer 5072.66 H ABG pH ABG pO2 ABG HCO3 ABG O2 Saturation ABG Base Excess ABG Hemoglobin Oxyhemoglobin Sodium 146 H Potassium Chloride Carbon Dioxide 18 L BUN 99 H Creatinine 6.1 H Glucose 346 H POC Glucose Hemoglobin A1c Lactic Acid Calcium Phosphorus Ferritin 975.6 H AST ALT < 5 L Alkaline Phosphatase Lactate Dehydrogenase C-Reactive Protein NT-Pro-B Natriuret Pep Albumin 3.0 L Salicylates Acetaminophen Crossmatch 05/18/19 05/18/19 05/18/19 11:15 11:55 18:11 WBC RBC Hgb Hct MCH RDW Lymph % (Auto) Lymph # Seg Neutrophils % Seg Neutrophils # D-Dimer ABG pH ABG pO2 ABG HCO3 ABG O2 Saturation ABG Base Excess ABG Hemoglobin Oxyhemoglobin Sodium Potassium Chloride Carbon Dioxide BUN Creatinine Glucose POC Glucose 334 H 397 H Hemoglobin A1c Lactic Acid Calcium Phosphorus Ferritin AST ALT Alkaline Phosphatase Lactate Dehydrogenase 483 H C-Reactive Protein 38.00 H NT-Pro-B Natriuret Pep Albumin Salicylates Acetaminophen Crossmatch 05/18/19 05/19/19 05/19/19 Unknown 00:30 05:07 WBC RBC Hgb Hct MCH RDW Lymph % (Auto) Lymph # Seg Neutrophils % Seg Neutrophils # D-Dimer ABG pH ABG pO2 133.0 H 61.1 L ABG HCO3 ABG O2 Saturation 94.4 L ABG Base Excess -2.9 L -2.7 L ABG Hemoglobin 8.3 L 8.0 L Oxyhemoglobin 92.2 L Sodium Potassium Chloride Carbon Dioxide BUN Creatinine Glucose POC Glucose 321 H Hemoglobin A1c Lactic Acid Calcium Phosphorus Ferritin AST ALT Alkaline Phosphatase Lactate Dehydrogenase C-Reactive Protein NT-Pro-B Natriuret Pep Albumin Salicylates Acetaminophen Crossmatch 05/19/19 05/19/19 05/19/19 05:17 12:23 15:02 WBC RBC Hgb Hct MCH RDW Lymph % (Auto) Lymph # Seg Neutrophils % Seg Neutrophils # D-Dimer ABG pH ABG pO2 ABG HCO3 ABG O2 Saturation ABG Base Excess ABG Hemoglobin Oxyhemoglobin Sodium 147 H Potassium Chloride 108.2 H Carbon Dioxide 16 L BUN 119 H Creatinine 8.5 H Glucose 315 H POC Glucose 235 H 298 H Hemoglobin A1c Lactic Acid Calcium 8.3 L Phosphorus Ferritin AST ALT Alkaline Phosphatase Lactate Dehydrogenase C-Reactive Protein NT-Pro-B Natriuret Pep Albumin Salicylates Acetaminophen Crossmatch 05/19/19 05/20/19 05/20/19 17:42 00:11 04:17 WBC RBC Hgb Hct MCH RDW Lymph % (Auto) Lymph # Seg Neutrophils % Seg Neutrophils # D-Dimer ABG pH 7.322 L ABG pO2 58.5 L ABG HCO3 18.9 L ABG O2 Saturation 91.0 L ABG Base Excess -6.5 L ABG Hemoglobin 7.0 L Oxyhemoglobin 88.2 L Sodium Potassium Chloride Carbon Dioxide BUN Creatinine Glucose POC Glucose 310 H 277 H Hemoglobin A1c Lactic Acid Calcium Phosphorus Ferritin AST ALT Alkaline Phosphatase Lactate Dehydrogenase C-Reactive Protein NT-Pro-B Natriuret Pep Albumin Salicylates Acetaminophen Crossmatch 05/20/19 05/20/19 05/20/19 05:29 09:06 09:06 WBC RBC Hgb Hct MCH RDW Lymph % (Auto) Lymph # Seg Neutrophils % Seg Neutrophils # D-Dimer 3193.32 H ABG pH ABG pO2 ABG HCO3 ABG O2 Saturation ABG Base Excess ABG Hemoglobin Oxyhemoglobin Sodium Potassium Chloride Carbon Dioxide BUN Creatinine Glucose POC Glucose 332 H Hemoglobin A1c Lactic Acid Calcium Phosphorus Ferritin 1802.0 H AST ALT Alkaline Phosphatase Lactate Dehydrogenase C-Reactive Protein NT-Pro-B Natriuret Pep Albumin Salicylates Acetaminophen Crossmatch 05/20/19 05/20/19 05/20/19 09:06 12:31 18:18 WBC RBC Hgb Hct MCH RDW Lymph % (Auto) Lymph # Seg Neutrophils % Seg Neutrophils # D-Dimer ABG pH ABG pO2 ABG HCO3 ABG O2 Saturation ABG Base Excess ABG Hemoglobin Oxyhemoglobin Sodium Potassium Chloride Carbon Dioxide BUN Creatinine Glucose POC Glucose 284 H 355 H Hemoglobin A1c Lactic Acid Calcium Phosphorus Ferritin AST ALT Alkaline Phosphatase Lactate Dehydrogenase 646 H C-Reactive Protein 56.30 H NT-Pro-B Natriuret Pep Albumin Salicylates Acetaminophen Crossmatch 05/20/19 05/21/19 05/21/19 23:43 05:04 05:05 WBC RBC Hgb Hct MCH RDW Lymph % (Auto) Lymph # Seg Neutrophils % Seg Neutrophils # D-Dimer ABG pH ABG pO2 54.1 L ABG HCO3 ABG O2 Saturation 88.4 L ABG Base Excess -4.0 L ABG Hemoglobin 6.9 L Oxyhemoglobin 85.5 L Sodium Potassium Chloride Carbon Dioxide BUN Creatinine Glucose POC Glucose 394 H 394 H Hemoglobin A1c Lactic Acid Calcium Phosphorus Ferritin AST ALT Alkaline Phosphatase Lactate Dehydrogenase C-Reactive Protein NT-Pro-B Natriuret Pep Albumin Salicylates Acetaminophen Crossmatch 05/21/19 05/21/19 05/21/19 12:14 17:41 23:25 WBC RBC Hgb Hct MCH RDW Lymph % (Auto) Lymph # Seg Neutrophils % Seg Neutrophils # D-Dimer ABG pH 7.281 L ABG pO2 61.2 L ABG HCO3 ABG O2 Saturation 91.6 L ABG Base Excess -4.8 L ABG Hemoglobin 6.2 L Oxyhemoglobin 88.9 L Sodium Potassium Chloride Carbon Dioxide BUN Creatinine Glucose POC Glucose 457 H 427 H Hemoglobin A1c Lactic Acid Calcium Phosphorus Ferritin AST ALT Alkaline Phosphatase Lactate Dehydrogenase C-Reactive Protein NT-Pro-B Natriuret Pep Albumin Salicylates Acetaminophen Crossmatch 05/21/19 05/22/19 05/22/19 23:45 04:35 04:48 WBC RBC Hgb Hct MCH RDW Lymph % (Auto) Lymph # Seg Neutrophils % Seg Neutrophils # D-Dimer ABG pH ABG pO2 ABG HCO3 ABG O2 Saturation ABG Base Excess ABG Hemoglobin Oxyhemoglobin Sodium Potassium Chloride Carbon Dioxide BUN Creatinine Glucose POC Glucose 453 H 470 H Hemoglobin A1c Lactic Acid Calcium Phosphorus Ferritin AST ALT Alkaline Phosphatase Lactate Dehydrogenase 978 H C-Reactive Protein 57.20 H NT-Pro-B Natriuret Pep Albumin Salicylates Acetaminophen Crossmatch 05/22/19 05/22/19 05/22/19 04:48 04:48 09:33 WBC 12.0 H RBC 2.47 L Hgb 7.0 L Hct 22.0 L MCH RDW 16.3 H Lymph % (Auto) Lymph # Seg Neutrophils % Seg Neutrophils # D-Dimer ABG pH 7.331 L ABG pO2 62.5 L ABG HCO3 ABG O2 Saturation 90.2 L ABG Base Excess -5.0 L ABG Hemoglobin 6.4 L Oxyhemoglobin 87.8 L Sodium Potassium Chloride Carbon Dioxide 17 L BUN 176 H Creatinine 12.0 H Glucose 493 H POC Glucose Hemoglobin A1c Lactic Acid Calcium Phosphorus Ferritin AST ALT Alkaline Phosphatase Lactate Dehydrogenase C-Reactive Protein NT-Pro-B Natriuret Pep Albumin Salicylates Acetaminophen Crossmatch 05/22/19 05/22/19 05/22/19 10:11 12:49 13:16 WBC RBC Hgb Hct MCH RDW Lymph % (Auto) Lymph # Seg Neutrophils % Seg Neutrophils # D-Dimer 3046.75 H ABG pH ABG pO2 ABG HCO3 ABG O2 Saturation ABG Base Excess ABG Hemoglobin Oxyhemoglobin Sodium Potassium Chloride Carbon Dioxide BUN Creatinine Glucose POC Glucose > 500 H Hemoglobin A1c Lactic Acid Calcium Phosphorus Ferritin 2525.0 H AST ALT Alkaline Phosphatase Lactate Dehydrogenase C-Reactive Protein NT-Pro-B Natriuret Pep Albumin Salicylates Acetaminophen Crossmatch 05/22/19 05/22/19 05/23/19 17:36 23:51 04:12 WBC RBC Hgb Hct MCH RDW Lymph % (Auto) Lymph # Seg Neutrophils % Seg Neutrophils # D-Dimer ABG pH ABG pO2 54.9 L ABG HCO3 ABG O2 Saturation 93.8 L ABG Base Excess -2.4 L ABG Hemoglobin 5.9 L Oxyhemoglobin 91.5 L Sodium Potassium Chloride Carbon Dioxide BUN Creatinine Glucose POC Glucose > 500 H 302 H Hemoglobin A1c Lactic Acid Calcium Phosphorus Ferritin AST ALT Alkaline Phosphatase Lactate Dehydrogenase C-Reactive Protein NT-Pro-B Natriuret Pep Albumin Salicylates Acetaminophen Crossmatch 05/23/19 05/23/19 05/23/19 05:45 13:38 17:07 WBC RBC Hgb Hct MCH RDW Lymph % (Auto) Lymph # Seg Neutrophils % Seg Neutrophils # D-Dimer ABG pH ABG pO2 ABG HCO3 ABG O2 Saturation ABG Base Excess ABG Hemoglobin Oxyhemoglobin Sodium Potassium Chloride Carbon Dioxide BUN Creatinine Glucose POC Glucose 279 H 269 H 205 H Hemoglobin A1c Lactic Acid Calcium Phosphorus Ferritin AST ALT Alkaline Phosphatase Lactate Dehydrogenase C-Reactive Protein NT-Pro-B Natriuret Pep Albumin Salicylates Acetaminophen Crossmatch 05/23/19 05/24/19 05/24/19 21:07 00:01 03:55 WBC RBC Hgb Hct MCH RDW Lymph % (Auto) Lymph # Seg Neutrophils % Seg Neutrophils # D-Dimer ABG pH 7.471 H ABG pO2 163.2 H ABG HCO3 ABG O2 Saturation 99.1 H ABG Base Excess ABG Hemoglobin 6.0 L Oxyhemoglobin Sodium Potassium Chloride Carbon Dioxide BUN Creatinine Glucose POC Glucose 274 H 260 H Hemoglobin A1c Lactic Acid Calcium Phosphorus Ferritin AST ALT Alkaline Phosphatase Lactate Dehydrogenase C-Reactive Protein NT-Pro-B Natriuret Pep Albumin Salicylates Acetaminophen Crossmatch 05/24/19 05/24/19 05/24/19 05:00 05:00 05:00 WBC RBC Hgb Hct MCH RDW Lymph % (Auto) Lymph # Seg Neutrophils % Seg Neutrophils # D-Dimer 2422.36 H ABG pH ABG pO2 ABG HCO3 ABG O2 Saturation ABG Base Excess ABG Hemoglobin Oxyhemoglobin Sodium Potassium Chloride Carbon Dioxide BUN Creatinine Glucose POC Glucose Hemoglobin A1c Lactic Acid Calcium Phosphorus Ferritin 3849.0 H AST ALT Alkaline Phosphatase Lactate Dehydrogenase 904 H C-Reactive Protein 44.40 H NT-Pro-B Natriuret Pep Albumin Salicylates Acetaminophen Crossmatch 05/24/19 05/24/19 05/24/19 05:00 05:00 05:29 WBC 17.2 H RBC 2.16 L Hgb 5.9 L* Hct 18.1 L* MCH 27 L RDW 15.3 H Lymph % (Auto) Lymph # Seg Neutrophils % Seg Neutrophils # D-Dimer ABG pH ABG pO2 ABG HCO3 ABG O2 Saturation ABG Base Excess ABG Hemoglobin Oxyhemoglobin Sodium Potassium 3.5 L D Chloride 93.4 L Carbon Dioxide 21 L BUN 97 H Creatinine 7.9 H Glucose 312 H POC Glucose 339 H Hemoglobin A1c Lactic Acid Calcium Phosphorus Ferritin AST ALT Alkaline Phosphatase Lactate Dehydrogenase C-Reactive Protein NT-Pro-B Natriuret Pep Albumin Salicylates Acetaminophen Crossmatch 05/24/19 05/24/19 05/24/19 08:45 12:48 18:05 WBC RBC Hgb Hct MCH RDW Lymph % (Auto) Lymph # Seg Neutrophils % Seg Neutrophils # D-Dimer ABG pH ABG pO2 ABG HCO3 ABG O2 Saturation ABG Base Excess ABG Hemoglobin Oxyhemoglobin Sodium Potassium Chloride Carbon Dioxide BUN Creatinine Glucose POC Glucose 270 H 154 H Hemoglobin A1c Lactic Acid Calcium Phosphorus Ferritin AST ALT Alkaline Phosphatase Lactate Dehydrogenase C-Reactive Protein NT-Pro-B Natriuret Pep Albumin Salicylates Acetaminophen Crossmatch See Detail 05/24/19 05/25/19 05/25/19 23:49 04:00 04:01 WBC 14.9 H RBC 3.62 L Hgb 9.8 L D Hct 29.3 L D MCH 27 L RDW Lymph % (Auto) Lymph # Seg Neutrophils % Seg Neutrophils # D-Dimer ABG pH ABG pO2 52.6 L ABG HCO3 ABG O2 Saturation 87.6 L ABG Base Excess ABG Hemoglobin 11.5 L Oxyhemoglobin 85.7 L Sodium Potassium Chloride Carbon Dioxide BUN Creatinine Glucose POC Glucose 199 H Hemoglobin A1c Lactic Acid Calcium Phosphorus Ferritin AST ALT Alkaline Phosphatase Lactate Dehydrogenase C-Reactive Protein NT-Pro-B Natriuret Pep Albumin Salicylates Acetaminophen Crossmatch 05/25/19 05/25/19 05/25/19 04:01 05:41 08:33 WBC RBC Hgb Hct MCH RDW Lymph % (Auto) Lymph # Seg Neutrophils % Seg Neutrophils # D-Dimer ABG pH 7.459 H ABG pO2 56.8 L ABG HCO3 ABG O2 Saturation 89.8 L ABG Base Excess ABG Hemoglobin 9.2 L Oxyhemoglobin 87.8 L Sodium Potassium 2.8 L* Chloride 96.4 L Carbon Dioxide BUN 59 H Creatinine 5.2 H Glucose 147 H POC Glucose 127 H Hemoglobin A1c Lactic Acid Calcium Phosphorus Ferritin AST 128 H ALT Alkaline Phosphatase 142 H Lactate Dehydrogenase C-Reactive Protein NT-Pro-B Natriuret Pep Albumin 2.9 L Salicylates Acetaminophen Crossmatch 05/25/19 05/25/19 05/25/19 12:03 13:36 17:13 WBC RBC Hgb Hct MCH RDW Lymph % (Auto) Lymph # Seg Neutrophils % Seg Neutrophils # D-Dimer ABG pH ABG pO2 ABG HCO3 ABG O2 Saturation ABG Base Excess ABG Hemoglobin Oxyhemoglobin Sodium Potassium Chloride Carbon Dioxide BUN Creatinine Glucose POC Glucose 42 L 108 H 168 H Hemoglobin A1c Lactic Acid Calcium Phosphorus Ferritin AST ALT Alkaline Phosphatase Lactate Dehydrogenase C-Reactive Protein NT-Pro-B Natriuret Pep Albumin Salicylates Acetaminophen Crossmatch 05/25/19 05/26/19 05/26/19 23:43 03:43 03:43 WBC 20.3 H RBC 3.56 L Hgb 9.7 L Hct 29.4 L MCH 27 L RDW Lymph % (Auto) Lymph # Seg Neutrophils % Seg Neutrophils # D-Dimer ABG pH ABG pO2 ABG HCO3 ABG O2 Saturation ABG Base Excess ABG Hemoglobin Oxyhemoglobin Sodium Potassium Chloride Carbon Dioxide 18 L BUN 85 H Creatinine 7.6 H Glucose 229 H POC Glucose 266 H Hemoglobin A1c Lactic Acid Calcium Phosphorus Ferritin AST ALT Alkaline Phosphatase Lactate Dehydrogenase C-Reactive Protein NT-Pro-B Natriuret Pep Albumin Salicylates Acetaminophen Crossmatch 05/26/19 05/26/19 05/26/19 03:43 03:56 04:51 WBC RBC Hgb Hct MCH RDW Lymph % (Auto) Lymph # Seg Neutrophils % Seg Neutrophils # D-Dimer ABG pH ABG pO2 71.9 L ABG HCO3 19.6 L ABG O2 Saturation ABG Base Excess -3.9 L ABG Hemoglobin 9.7 L Oxyhemoglobin 93.6 L Sodium Potassium Chloride Carbon Dioxide BUN Creatinine Glucose POC Glucose 222 H Hemoglobin A1c Lactic Acid Calcium Phosphorus Ferritin AST ALT Alkaline Phosphatase Lactate Dehydrogenase 925 H C-Reactive Protein 22.20 H NT-Pro-B Natriuret Pep Albumin Salicylates Acetaminophen Crossmatch 05/26/19 05/26/19 05/26/19 11:53 17:55 21:48 WBC RBC Hgb Hct MCH RDW Lymph % (Auto) Lymph # Seg Neutrophils % Seg Neutrophils # D-Dimer 7143.61 H ABG pH ABG pO2 ABG HCO3 ABG O2 Saturation ABG Base Excess ABG Hemoglobin Oxyhemoglobin Sodium Potassium Chloride Carbon Dioxide BUN Creatinine Glucose POC Glucose 212 H 229 H Hemoglobin A1c Lactic Acid Calcium Phosphorus Ferritin AST ALT Alkaline Phosphatase Lactate Dehydrogenase C-Reactive Protein NT-Pro-B Natriuret Pep Albumin Salicylates Acetaminophen Crossmatch 05/26/19 05/27/19 05/27/19 21:48 00:07 00:17 WBC RBC Hgb Hct MCH RDW Lymph % (Auto) Lymph # Seg Neutrophils % Seg Neutrophils # D-Dimer ABG pH ABG pO2 ABG HCO3 ABG O2 Saturation ABG Base Excess ABG Hemoglobin Oxyhemoglobin Sodium Potassium Chloride Carbon Dioxide BUN Creatinine Glucose POC Glucose 235 H 274 H Hemoglobin A1c Lactic Acid Calcium Phosphorus Ferritin > 2000.0 H AST ALT Alkaline Phosphatase Lactate Dehydrogenase C-Reactive Protein NT-Pro-B Natriuret Pep Albumin Salicylates Acetaminophen Crossmatch 05/27/19 05/27/19 05/27/19 05:20 08:59 12:26 WBC RBC Hgb Hct MCH RDW Lymph % (Auto) Lymph # Seg Neutrophils % Seg Neutrophils # D-Dimer ABG pH ABG pO2 ABG HCO3 ABG O2 Saturation ABG Base Excess ABG Hemoglobin Oxyhemoglobin Sodium Potassium 3.3 L Chloride 94.3 L Carbon Dioxide 14 L BUN 88 H Creatinine 6.8 H Glucose 296 H POC Glucose 338 H 313 H Hemoglobin A1c Lactic Acid Calcium Phosphorus 6.50 H Ferritin AST ALT Alkaline Phosphatase Lactate Dehydrogenase C-Reactive Protein NT-Pro-B Natriuret Pep Albumin Salicylates Acetaminophen Crossmatch 05/27/19 05/27/19 05/28/19 17:54 Unknown 00:07 WBC RBC Hgb Hct MCH RDW Lymph % (Auto) Lymph # Seg Neutrophils % Seg Neutrophils # D-Dimer ABG pH ABG pO2 111.2 H ABG HCO3 18.3 L ABG O2 Saturation ABG Base Excess -6.0 L ABG Hemoglobin 9.3 L Oxyhemoglobin Sodium Potassium Chloride Carbon Dioxide BUN Creatinine Glucose POC Glucose 312 H 411 H Hemoglobin A1c Lactic Acid Calcium Phosphorus Ferritin AST ALT Alkaline Phosphatase Lactate Dehydrogenase C-Reactive Protein NT-Pro-B Natriuret Pep Albumin Salicylates Acetaminophen Crossmatch 05/28/19 05/28/19 04:03 05:49 WBC RBC Hgb Hct MCH RDW Lymph % (Auto) Lymph # Seg Neutrophils % Seg Neutrophils # D-Dimer ABG pH 7.310 L ABG pO2 70.0 L ABG HCO3 18.3 L ABG O2 Saturation 92.6 L ABG Base Excess -7.3 L ABG Hemoglobin 8.0 L Oxyhemoglobin 90.8 L Sodium Potassium Chloride Carbon Dioxide BUN Creatinine Glucose POC Glucose 362 H Hemoglobin A1c Lactic Acid Calcium Phosphorus Ferritin AST ALT Alkaline Phosphatase Lactate Dehydrogenase C-Reactive Protein NT-Pro-B Natriuret Pep Albumin Salicylates Acetaminophen Crossmatch Allied health notes reviewed: nursing
[2019-05-28] MEDS ORDERED: VANCOMYCIN 1,500 MG in SODIUM CHLORIDE 0.9% 500 ML 500 ML IV ONE ×2 (12:45→19:00)
[2019-05-28 14:43] LABS: Calcium 8.8 mg/dL (8.4-10.2)
[2019-05-28 15:16] LABS: Hematocrit 25.8 % (30.3-42.9); Hemoglobin 8.6 gm/dl (10.1-14.3); Mean Corpuscular HGB Conc 33 % (30-34); Mean Corpuscular Volume 83 fl (79-97); Platelet Count 331 K/mm3 (140-440); Red Cell Distribution Width 15.4 % (13.2-15.2)
[2019-05-28 15:57] LABS: Basophils % (Manual) 0 % (0.0-1.8); RBC Morphology Normal; Total Cells Counted 100
--- NOTE | 2019-05-28 18:30 | Progress Note ---
Assessment and Plan Cultures: Blood culture 05/15/2019 no growth to date Sputum culture 05/15/2019 Strep pneumoniae Blood culture + fungal blood culture 05/28/2019 pending A/P: 63 y/o female with history of ESRD s/p AV graft placement 3 days before admission, admitted on 05/15/2019 for fever and drainage from the left upper extremity graft site as well as cough with whezzing and fever 102: #Severe sepsis: fever resolved; likely due to COVID pneumonia #Severe COVID pneumonia: COVID test positive. Now with Strep pneumoniae in sputum likely bacterial pneumonia on top of COVID. Markers DOWN. CT chest shows bilateral diffuse ground glass opacities. CXR better # AVG edema / erythema (per vascular not infected - duplex scan demonstrates patent graft with appropriate flow volumes and with minimal fluid noted at the venous anastomosis) #Acute Acute Respiratory Failure: intubated, due to pneumonia #DM: uncontrolled #ESRD on HD had vas cath placed for HD #Severe anemia on therapeutic heparin #Persistent leukocytosis: mostly unchanged, but not improved. ?superinfection. CXR stable. If no improvement on empiric antibiotics recommend de-escalation Recs: S/p po ivermectin x1 (off labe use) on 05/22/2019 S/p tocilizumab IV x 1 05/23/2019 S/p plaquenil and zinc total 5 days On steroid trial On prophylactic anticoagualtion Now on cefepime, vancomycin. Continue pending repeat blood culture results. ContinueCOVID isolationprecautions per [facility] protocol Ordered repeat sputum culture - ? superinfection. D/W Dr. Gabriel Mcclure MD [facility] M: [phone] O: [phone] F: [phone] Subjective Date of service: 05/28/19 Principal diagnosis: Ac hypoxemic resp failure; Hakeem pneumonia; Sepsis; COVID-19 infection; ESRD Interval history: Afebrille, elevated white count. Intubated and sedated. PUI?: Yes COVID19: Positive Objective - Exam Narrative Exam: Constitutional: Intubated, sedated Head, Ears, Nose:limited due to lack of PPE Oral: Endotracheal tube Cardiovascular: Limited evaluation due to PPE shortage Respiratory: Limited evaluation due to PPE shortage GI: Limited evaluation due to PPE shortage Musculoskeletal: Limited evaluation due to PPE shortage Skin: right arm AVG with edema Neurological: Sedated - Constitutional Vitals: Vital Signs Temp Pulse Resp BP Pulse Ox 98.5 F 87 32 H 99/45 96 05/28/19 12:00 05/28/19 15:19 05/28/19 06:00 05/28/19 15:19 05/28/19 15:19 Temperature -Last 24 Hours Temperature 98.5 F Temperature 98.9 F Temperature 98.8 F Temperature 98.2 F Temperature 97.7 F - Labs CBC & Chem 7: 05/28/19 14:48 05/28/19 13:58 Labs: Abnormal lab results 05/28/19 05/28/19 05/28/19 Range/Units 00:07 04:03 05:49 WBC (4.5-11.0) K/mm3 RBC (3.65-5.03) M/mm3 Hgb (10.1-14.3) gm/dl Hct (30.3-42.9) % RDW (13.2-15.2) % Seg Neuts % (Manual) (40.0-70.0) % Lymphocytes % (Manual) (13.4-35.0) % Seg Neutrophils # Man (1.8-7.7) K/mm3 Lymphocytes # (Manual) (1.2-5.4) K/mm3 Monocytes # (Manual) (0.0-0.8) K/mm3 Eosinophils # (Manual) (0.0-0.4) K/mm3 ABG pH 7.310 L (7.350-7.450) pH Units ABG pO2 70.0 L (80.0-90.0) mm Hg ABG HCO3 18.3 L (20.0-26.0) mmol/L ABG O2 Saturation 92.6 L (95.0-99.0) % ABG Base Excess -7.3 L (-2.0-3.0) mmol/L ABG Hemoglobin 8.0 L (12.0-16.0) gm/dl Oxyhemoglobin 90.8 L (95.0-99.0) % Sodium (137-145) mmol/L Chloride (98-107) mmol/L Carbon Dioxide (22-30) mmol/L BUN (7-17) mg/dL Creatinine (0.7-1.2) mg/dL Glucose (65-100) mg/dL POC Glucose 411 H 362 H (70-105) 05/28/19 05/28/19 05/28/19 Range/Units 11:57 13:58 14:48 WBC 15.1 H (4.5-11.0) K/mm3 RBC 3.10 L (3.65-5.03) M/mm3 Hgb 8.6 L (10.1-14.3) gm/dl Hct 25.8 L (30.3-42.9) % RDW 15.4 H (13.2-15.2) % Seg Neuts % (Manual) 85.0 H (40.0-70.0) % Lymphocytes % (Manual) 5.0 L (13.4-35.0) % Seg Neutrophils # Man 12.8 H (1.8-7.7) K/mm3 Lymphocytes # (Manual) 0.8 L (1.2-5.4) K/mm3 Monocytes # (Manual) 0.9 H (0.0-0.8) K/mm3 Eosinophils # (Manual) 0.6 H (0.0-0.4) K/mm3 ABG pH (7.350-7.450) pH Units ABG pO2 (80.0-90.0) mm Hg ABG HCO3 (20.0-26.0) mmol/L ABG O2 Saturation (95.0-99.0) % ABG Base Excess (-2.0-3.0) mmol/L ABG Hemoglobin (12.0-16.0) gm/dl Oxyhemoglobin (95.0-99.0) % Sodium 135 L (137-145) mmol/L Chloride 90.5 L (98-107) mmol/L Carbon Dioxide 13 L (22-30) mmol/L BUN 117 H (7-17) mg/dL Creatinine 8.9 H (0.7-1.2) mg/dL Glucose 479 H (65-100) mg/dL POC Glucose 347 H (70-105) 05/28/19 Range/Units 18:05 WBC (4.5-11.0) K/mm3 RBC (3.65-5.03) M/mm3 Hgb (10.1-14.3) gm/dl Hct (30.3-42.9) % RDW (13.2-15.2) % Seg Neuts % (Manual) (40.0-70.0) % Lymphocytes % (Manual) (13.4-35.0) % Seg Neutrophils # Man (1.8-7.7) K/mm3 Lymphocytes # (Manual) (1.2-5.4) K/mm3 Monocytes # (Manual) (0.0-0.8) K/mm3 Eosinophils # (Manual) (0.0-0.4) K/mm3 ABG pH (7.350-7.450) pH Units ABG pO2 (80.0-90.0) mm Hg ABG HCO3 (20.0-26.0) mmol/L ABG O2 Saturation (95.0-99.0) % ABG Base Excess (-2.0-3.0) mmol/L ABG Hemoglobin (12.0-16.0) gm/dl Oxyhemoglobin (95.0-99.0) % Sodium (137-145) mmol/L Chloride (98-107) mmol/L Carbon Dioxide (22-30) mmol/L BUN (7-17) mg/dL Creatinine (0.7-1.2) mg/dL Glucose (65-100) mg/dL POC Glucose 434 H (70-105)
[2019-05-28] MEDS ORDERED: VANCOMYCIN PHARMACY TO DOSE IV SCH (19:00)
[2019-05-28] MEDS: CEFEPIME 0.5 GM in SODIUM CHLORIDE 0.9% 100 ML IV SCH ×2 (19:30→21:30)
[2019-05-29] MEDS: INSULIN LISPRO 100 UNIT/ML SUB-Q SCH ×6 (00:31→18:20)
[2019-05-29] MEDS: METOCLOPRAMIDE 10 MG/2 ML INJ IV SCH ×4 (05:26→21:02)
[2019-05-29] MEDS: CEFEPIME 0.5 GM in SODIUM CHLORIDE 0.9% 100 ML IV SCH (05:27)
[2019-05-29] MEDS: NORepinephrine/NS 4 MG-250 ML 4 MG/250 ML BAG IV SCH ×3 (06:14→21:31)
[2019-05-29] MEDS: SODIUM BICARBONATE 650 MG TAB PO SCH ×4 (08:04→19:39)
--- NOTE | 2019-05-29 08:25 | Progress Note ---
Assessment and Plan Assessment and plan: --Covid-19 confirmed Covid19 paperwork completed by ED F/U ferritin, LDH, D-Dimer and CRP --Acute hypoxic respiratory failure; requiring intubation On ventilatory support, nebulizers Supportive care, pulmonary critical following Wean as tolerated per pulm --Bilateral patchy groundglass opacities/pneumonia Isolation precautions, cultures ID following --Acute metabolic encephalopathy; Present on admission, probably secondary to hypoxemia --Infected AV graft for dialysis; IV antibiotics, vascular,ID following --End-stage renal disease on hemodialysis; HD per schedulen nephrology following --Type 2 diabetes mellitus; moderate control Accu-Chek sliding scale coverage ADA diet and insulin as needed HbA1c 7.7 --Moderate malnutrition/hypoalbuminemia Due to underlying disease process, nutrition supplements Nutrition consult as needed --Lactic acidosis; rule out infections Supportive care --DVT prophylaxis; Lovenox --Obesity BMI 31.6; Patient needs weight reduction when medically stable Anemia Hgb 5.9. Transfuse 2 units PRBC and repeat obtain stool occult blood --Full CODE STATUS; Monitor closely and adjust management as needed Very poor prognosis Plan of care reviewed with the patient's nurse 05/18/2019 Covid-19 confirmed Patient currently with AC mode, rate20, tidal volume 450, FiO2 50% and PEEP 6. Continue hydroxychloroquine 400 mg p.o. twPatient is critically ill with poor prognosis. Wean as tolerated per pulmonarice daily x1 day then 200 mg p.o. x 4 twice daily for 5 days. Continue cefepime per ID. Follow-up inflammatory markers of ferritin, LDH, d-dimer and CRP. 05/19/19 Patient currently with AC mode, rate20, tidal volume 450, FiO2 50% and PEEP 6. Patient is critically ill with poor prognosis. Continue Plaquenil 200 mg p.o. x 4 twice daily for 5 days. Continue cefepime per ID. Follow-up inflammatory markers of ferritin, LDH, d-dimer and CRP. Discussed confirmed positive test with daughter 05/20/2019. Continue Plaquenil taper per ID recommendations. Continue mechanical ventilation with AC mode, rate 14, tidal volume 450 and PEEP 6. Follow-up inflammatory markers of ferritin, LDH, d-dimer and CRP. 05/21/2019. Patient remains critically ill on mechanical ventilation AC mode with rate 14, tidal volume 450, FiO2 40% and PEEP of 6. Patient has strep pneumonia in sputum and likely has bacterial pneumonia exacerbated with COVID-19. Ferritin and LDH elevated but d-dimer decreased. Follow-up repeat chest x-ray. Continue antibiotics per IDceftriaxone. Continue Plaquenil/zinc. Continue CO VID isolation precautions. Follow-up inflammatory markers. Patient with poor prognosis and high risk mortality. 05/22/2019. Patient remains critically ill on mechanical ventilation AC mode with rate 25, tidal volume 450, FiO2 65% and PEEP of 8. Patient has strep pneumonia in sputum and likely has bacterial pneumonia exacerbated with COVID-19. Ferritin and LDH elevated but d-dimer decreased. Follow-up repeat chest x-ray. Continue antibiotics per IDceftriaxone. Continue Plaquenil/zinc. Continue COVID isolation precautions. Follow-up inflammatory markers. Continue hemodialysis per nephrology and evaluate on a daily basis. Patient with poor prognosis and high risk mortality. 05/23/2019 patient with covid-19 infection. She is critically ill, still intubated on vent. 05/24/2019 patient hgb 5.9. Transfuse 2 Units PRBC. I discussed this with Nurse. She is still critically ill, intubated 05/25/2019 patient transfused 2 units PRBC, hgb now 9.8. Off levophed. 05/26/19 Patient still critically ill, still intubated, on vent, Continue Levophed. 05/27/19 patient had SVT yesterday in evening, treated with Adenosine iv. 05/28/19 patient had episodes of SVT yesterday, resolved. started on Amiodarone on recommendation from cardiology. 05/29/19 patient had SVT on 05/25 and 05/26, treated with adenosine and now started on amiodarone. Still intubated on vent. The high probability of a clinically significant, sudden or life threatening deterioration of the [immunologic and respiratory] system(s) required my full and direct attention, intervention and personal management. The aggregate critical care time was [35] minutes. This time is in addition to time spent performing reported procedures but includes the following: [x] Data Review and interpretation [x] Patient assessment and monitoring of vital signs [x] Documentation [x] Medication orders and management History Interval history: Patient with Covid-19 infection, fever Patient had SVT on 05/25 and 05/26, treated with Adenosine PUI?: Yes COVID19: Positive Hospitalist Physical - Physical exam Narrative exam: GEN: Not in acute distress, HEENT: Normocephalic, atraumatic, Neck: supple, No JVD Lungs: Bilateral rales, no wheeze heart;S1 and S2 reg, no murmurs, rubs or gallop Abd:soft, non tender, non distended, normal bowel sounds, Ext: No edema, no clubbing, no cyanosis, Neuro: Intubated - Constitutional Vitals: Temp Pulse Resp BP Pulse Ox 98.6 F 77 25 H 111/53 97 05/29/19 03:14 05/29/19 08:00 05/29/19 08:00 05/29/19 08:00 05/29/19 08:00 General appearance: Present: other (Currently on a ventilator and sedated) Results - Labs CBC & Chem 7: 05/28/19 14:48 05/28/19 13:58 Labs: Laboratory Last Values WBC 15.1 K/mm3 (4.5-11.0) H 05/28/19 14:48 RBC 3.10 M/mm3 (3.65-5.03) L 05/28/19 14:48 Hgb 8.6 gm/dl (10.1-14.3) L 05/28/19 14:48 Hct 25.8 % (30.3-42.9) L 05/28/19 14:48 MCV 83 fl (79-97) 05/28/19 14:48 MCH 28 pg (28-32) 05/28/19 14:48 MCHC 33 % (30-34) 05/28/19 14:48 RDW 15.4 % (13.2-15.2) H 05/28/19 14:48 Plt Count 331 K/mm3 (140-440) 05/28/19 14:48 Lymph % (Auto) Desk Editor 05/28/19 14:48 [place] % (Auto) Desk Editor 05/28/19 14:48 Eos % (Auto) Desk Editor 05/28/19 14:48 Baso % (Auto) Desk Editor 05/28/19 14:48 Lymph # Desk Editor 05/28/19 14:48 [place] # Desk Editor 05/28/19 14:48 Eos # Desk Editor 05/28/19 14:48 Baso # Desk Editor 05/28/19 14:48 Add Manual Diff Complete 05/28/19 14:48 Total Counted 100 05/28/19 14:48 Seg Neutrophils % Desk Editor 05/28/19 14:48 Seg Neuts % (Manual) 85.0 % (40.0-70.0) H 05/28/19 14:48 Band Neutrophils % 0 % 05/28/19 14:48 Lymphocytes % (Manual) 5.0 % (13.4-35.0) L 05/28/19 14:48 Reactive Lymphs % (Man) 0 % 05/28/19 14:48 Monocytes % (Manual) 6.0 % (0.0-7.3) 05/28/19 14:48 Eosinophils % (Manual) 4.0 % (0.0-4.3) 05/28/19 14:48 Basophils % (Manual) 0 % (0.0-1.8) 05/28/19 14:48 Metamyelocytes % 0 % 05/28/19 14:48 Myelocytes % 0 % 05/28/19 14:48 Promyelocytes % 0 % 05/28/19 14:48 Blast Cells % 0 % 05/28/19 14:48 Nucleated RBC % Not Reportable 05/28/19 14:48 Seg Neutrophils # Desk Editor 05/28/19 14:48 Seg Neutrophils # Man 12.8 K/mm3 (1.8-7.7) H 05/28/19 14:48 Band Neutrophils # 0.0 K/mm3 05/28/19 14:48 Lymphocytes # (Manual) 0.8 K/mm3 (1.2-5.4) L 05/28/19 14:48 Abs React Lymphs (Man) 0.0 K/mm3 05/28/19 14:48 Monocytes # (Manual) 0.9 K/mm3 (0.0-0.8) H 05/28/19 14:48 Eosinophils # (Manual) 0.6 K/mm3 (0.0-0.4) H 05/28/19 14:48 Basophils # (Manual) 0.0 K/mm3 (0.0-0.1) 05/28/19 14:48 Metamyelocytes # 0.0 K/mm3 05/28/19 14:48 Myelocytes # 0.0 K/mm3 05/28/19 14:48 Promyelocytes # 0.0 K/mm3 05/28/19 14:48 Blast Cells # 0.0 K/mm3 05/28/19 14:48 WBC Morphology Not Reportable 05/28/19 14:48 Hypersegmented Neuts Not Reportable 05/28/19 14:48 Hyposegmented Neuts Not Reportable 05/28/19 14:48 Hypogranular Neuts Not Reportable 05/28/19 14:48 Smudge Cells Not Reportable 05/28/19 14:48 Toxic Granulation Not Reportable 05/28/19 14:48 Toxic Vacuolation Not Reportable 05/28/19 14:48 Dohle Bodies Not Reportable 05/28/19 14:48 Pelger-Huet Anomaly Not Reportable 05/28/19 14:48 Keara Rods Not Reportable 05/28/19 14:48 Platelet Estimate Not Reportable 05/28/19 14:48 Clumped Platelets Not Reportable 05/28/19 14:48 Plt Clumps, EDTA Not Reportable 05/28/19 14:48 Large Platelets Not Reportable 05/28/19 14:48 Giant Platelets Not Reportable 05/28/19 14:48 Platelet Satelliting Not Reportable 05/28/19 14:48 Plt Morphology Comment Not Reportable 05/28/19 14:48 RBC Morphology Normal 05/28/19 14:48 Dimorphic RBCs Not Reportable 05/28/19 14:48 Polychromasia Not Reportable 05/28/19 14:48 Hypochromasia Not Reportable 05/28/19 14:48 Poikilocytosis Not Reportable 05/28/19 14:48 Anisocytosis Not Reportable 05/28/19 14:48 Microcytosis Not Reportable 05/28/19 14:48 Macrocytosis Not Reportable 05/28/19 14:48 Spherocytes Not Reportable 05/28/19 14:48 Pappenheimer Bodies Not Reportable 05/28/19 14:48 Sickle Cells Not Reportable 05/28/19 14:48 Target Cells Not Reportable 05/28/19 14:48 Tear Drop Cells Not Reportable 05/28/19 14:48 Ovalocytes Not Reportable 05/28/19 14:48 Helmet Cells Not Reportable 05/28/19 14:48 Orsa-Dennard Bodies Not Reportable 05/28/19 14:48 Edwards Rings Not Reportable 05/28/19 14:48 [place] Cells Not Reportable 05/28/19 14:48 Bite Cells Not Reportable 05/28/19 14:48 Crenated Cell Not Reportable 05/28/19 14:48 Elliptocytes Not Reportable 05/28/19 14:48 Acanthocytes (Spur) Not Reportable 05/28/19 14:48 Rouleaux Not Reportable 05/28/19 14:48 Hemoglobin C Crystals Not Reportable 05/28/19 14:48 Schistocytes Not Reportable 05/28/19 14:48 Malaria parasites Not Reportable 05/28/19 14:48 [place] Bodies Not Reportable 05/28/19 14:48 Hem Pathologist Commnt No 05/28/19 14:48 D-Dimer 6984 ng/mlDDU (0-234) H 05/29/19 04:13 Heparin Anti-Xa Level 0.54 U.I./ml (0.3-0.7) 05/24/19 08:45 ABG pH 7.310 pH Units (7.350-7.450) L 05/28/19 04:03 ABG pCO2 37.2 mm Hg 05/28/19 04:03 ABG pO2 70.0 mm Hg (80.0-90.0) L 05/28/19 04:03 ABG HCO3 18.3 mmol/L (20.0-26.0) L 05/28/19 04:03 ABG O2 Saturation 92.6 % (95.0-99.0) L 05/28/19 04:03 ABG O2 Content 10.2 (0.0-44) 05/28/19 04:03 ABG Base Excess -7.3 mmol/L (-2.0-3.0) L 05/28/19 04:03 ABG Hemoglobin 8.0 gm/dl (12.0-16.0) L 05/28/19 04:03 ABG Carboxyhemoglobin 1.4 % (0.0-5.0) 05/28/19 04:03 ABG Methemoglobin 0.6 % (0.0-1.5) 05/28/19 04:03 Oxyhemoglobin 90.8 % (95.0-99.0) L 05/28/19 04:03 FiO2 60 % 05/28/19 04:03 Sodium 135 mmol/L (137-145) L 05/28/19 13:58 Potassium 3.7 mmol/L (3.6-5.0) 05/28/19 13:58 Chloride 90.5 mmol/L (98-107) L 05/28/19 13:58 Carbon Dioxide 13 mmol/L (22-30) L 05/28/19 13:58 Anion Gap 35 mmol/L 05/28/19 13:58 BUN 117 mg/dL (7-17) H 05/28/19 13:58 Creatinine 8.9 mg/dL (0.7-1.2) H 05/28/19 13:58 Estimated GFR 5 ml/min 05/28/19 13:58 BUN/Creatinine Ratio 13 % 05/28/19 13:58 Glucose 479 mg/dL (65-100) H 05/28/19 13:58 POC Glucose 457 (70-105) H 05/29/19 05:26 Hemoglobin A1c 7.7 % (4-6) H 05/15/19 Unknown Lactic Acid 1.40 mmol/L (0.7-2.0) 05/15/19 11:41 Calcium 8.8 mg/dL (8.4-10.2) 05/28/19 13:58 Phosphorus 6.50 mg/dL (2.5-4.5) H 05/27/19 08:59 Magnesium 1.90 mg/dL (1.7-2.3) 05/27/19 08:59 Ferritin 1723.0 ng/mL (13.0-400.0) H 05/29/19 04:13 Total Bilirubin 0.30 mg/dL (0.1-1.2) 05/25/19 04:01 AST 128 units/L (5-40) H 05/25/19 04:01 ALT 43 units/L (7-56) 05/25/19 04:01 Alkaline Phosphatase 142 units/L (35-129) H 05/25/19 04:01 Lactate Dehydrogenase 925 units/L (91-180) H 05/26/19 03:43 C-Reactive Protein 22.80 mg/dL (0.00-1.30) H 05/29/19 04:13 NT-Pro-B Natriuret Pep 7240 pg/mL (0-900) H 05/15/19 09:11 Total Protein 7.7 g/dL (6.3-8.2) 05/25/19 04:01 Albumin 2.9 g/dL (3.9-5) L 05/25/19 04:01 Albumin/Globulin Ratio 0.6 % 05/25/19 04:01 Procalcitonin 21.80 ng/mL (<0.15) 05/24/19 05:00 Urine Color Straw (Yellow) 05/15/19 12:07 Urine Turbidity Clear (Clear) 05/15/19 12:07 Urine pH 7.0 (5.0-7.0) 05/15/19 12:07 Ur Specific Crowell 1.009 (1.003-1.030) 05/15/19 12:07 Urine Protein 100 mg/dl mg/dL (Negative) 05/15/19 12:07 Urine Glucose (UA) >=500 mg/dL (Negative) 05/15/19 12:07 Urine Ketones Neg mg/dL (Negative) 05/15/19 12:07 Urine Blood Sm (Negative) 05/15/19 12:07 Urine Nitrite Neg (Negative) 05/15/19 12:07 Urine Bilirubin Neg (Negative) 05/15/19 12:07 Urine Urobilinogen < 2.0 mg/dL (<2.0) 05/15/19 12:07 Ur Leukocyte Esterase Neg (Negative) 05/15/19 12:07 Urine WBC (Auto) 3.0 /HPF (0.0-6.0) 05/15/19 12:07 Urine RBC (Auto) 18.0 /HPF (0.0-6.0) 05/15/19 12:07 Urine Mucus Few /HPF 05/15/19 12:07 Random Vancomycin 11.9 ug/mL (0-40.0) 05/17/19 14:57 Salicylates < 0.3 mg/dL (2.8-20.0) L 05/15/19 13:10 Acetaminophen < 5.0 ug/mL (10.0-30.0) L 05/15/19 13:10 Hepatitis A IgM Ab Non-reactive (NonReactive) 05/22/19 10:50 Hep Bs Antigen Non-reactive (Negative) 05/22/19 10:50 Hep B Core IgM Ab Non-reactive (NonReactive) 05/22/19 10:50 Hepatitis C Antibody Non-reactive (NonReactive) 05/22/19 10:50 Miscellaneous Test See scanned result 05/16/19 Unknown Blood Type O POSITIVE 05/24/19 08:45 Antibody Screen Negative 05/24/19 08:45 Crossmatch See Detail 05/24/19 08:45 Microbiology: Microbiology 05/28/19 01:10 Peripheral/Venous Blood Culture - Preliminary NO GROWTH AFTER 24 HOURS 05/28/19 01:10 Peripheral/Venous Blood Fungal Culture - Preliminary Culture in Progress 05/28/19 01:10 Peripheral/Venous Blood Fungal Culture - Preliminary Culture in Progress Castellanos/IV: Voiding Method Condom Catheter IV Catheter Type [Right VAS Cath Femoral] IV Catheter Type [Left INT / Saline Lock External Jugular] IV Catheter Type [Right Wrist] INT / Saline Lock IV Catheter Type [Right INT / Saline Lock External Jugular] Active Medications - Current Medications Current Medications: Generic Name Dose Route Start Last Admin Trade Name Freq PRN Reason Stop Dose Admin Acetaminophen 650 mg 05/15/19 23:04 05/21/19 16:17 Tylenol PO 650 mg Q4H PRN Administration Pain MILD(1-3)/Fever >100.5/MELVIN Acetaminophen 650 mg 05/16/19 01:28 05/16/19 01:44 Tylenol NE 650 mg Q6H PRN Administration TEMP > 100.3 Amiodarone HCl 200 mg 05/27/19 14:00 05/28/19 21:30 Cordarone FEEDTUBE 200 mg BID LUIS M Administration Lipase/Protease/Amylase 1 each 05/16/19 11:[address] 10,500 Unit FEEDTUBE PRN PRN For Clogged Feeding Tube Dextrose 25 ml 05/25/19 13:00 05/25/19 12:20 D50w (25gm) Syringe IV 25 ml Q30MIN PRN Administration BLOOD GLUCOSE </=80 Famotidine 20 mg 05/18/19 10:00 05/28/19 10:38 Pepcid PO 20 mg DAILY LUIS M Administration Heparin Sodium (Porcine) 5,000 unit 05/24/19 22:00 05/28/19 21:31 Heparin SUB-Q 5,000 unit Q12HR LUIS M Administration Hydromorphone HCl 0.25 mg 05/15/19 23:04 05/25/19 12:22 Dilaudid IV 0.25 mg Q3H PRN Administration Pain, Moderate (4-6) Hydrophilic Ointment 1 applic 05/15/19 09:48 Vaseline Lip Therapy TP Q2HR PRN Dry Lips Propofol 1,000 mg in 100 mls @ 2.585 mls/hr 05/15/19 11:00 05/29/19 02:23 Diprivan 10 Mg/Ml IV 30 mcg/kg/min TITR LUIS M 15.513 mls/hr Administration Protocol 5 MCG/KG/MIN Norepinephrine 4 mg in 250 mls @ 18.75 mls/hr 05/21/19 23:45 05/29/19 06:14 Levophed Drip 4 Mg/Ns 250 Ml IV 6 mcg/min TITR LUIS M 22.5 mls/hr Administration Protocol 5 MCG/MIN Sodium Chloride 100 mls @ 999 mls/hr 05/26/19 09:30 Nacl 0.9% IV COBY PRN Hypotension Vasopressin 20 unit/ Sodium 101 mls @ 9.09 mls/hr 05/27/19 15:14 Chloride IV TITR LUIS M 0.03 UNITS/MIN Cefepime HCl 0.5 gm/ Sodium 100 mls @ 200 mls/hr 05/28/19 14:00 05/29/19 05:27 Chloride IV 200 mls/hr Q8HR [facility] Administration Protocol Insulin Human Lispro 0 unit 05/16/19 00:00 05/29/19 08:04 Humalog SUB-Q Not Given Q6HR [facility] Protocol Metoclopramide HCl 5 mg 05/15/19 23:24 Reglan IV Q6H PRN Nausea And Vomiting Metoclopramide HCl 5 mg 05/25/19 14:00 05/29/19 08:04 Reglan IV Not Given Q8HR [facility] Multi-Ingred Cream/Lotion/Oil/Oint 1 applic 05/15/19 09:48 05/25/19 18:29 Artificial Tears Ophth Oint OU 1 applic Q4HR PRN Administration Dry Eye(s) Ondansetron HCl 4 mg 05/15/19 23:04 05/19/19 18:30 Zofran IV 4 mg Q8H PRN Administration Nausea And Vomiting Simple Syrup 15 ml 05/16/19 11:14 Simple Syrup FEEDTUBE PRN PRN Hypoglycemia Simple Syrup 30 ml 05/16/19 11:14 Simple Syrup FEEDTUBE PRN PRN Hypoglycemia Sodium Bicarbonate 325 mg 05/16/19 11:14 Sodium Bicarbonate FEEDTUBE PRN PRN For Clogged Feeding Tube Sodium Bicarbonate 650 mg 05/21/19 15:00 05/29/19 08:04 Sodium Bicarbonate PO Not Given TID LUIS M Sodium Chloride 10 ml 05/16/19 10:00 05/28/19 21:32 Sodium Chloride Flush Syringe 10 Ml IV 10 ml BID LUIS M Administration Sodium Chloride 10 ml 05/15/19 23:04 Sodium Chloride Flush Syringe 10 Ml IV PRN PRN LINE FLUSH Nutrition/Malnutrition Assess - Dietary Evaluation Nutrition/Malnutrition Findings: Nutrition Notes Start: 05/16/19 08:31 Freq: Status: Active Protocol: Document 05/22/19 09:52 LM (Rec: 05/22/19 09:56 LM [id number]) Nutrition Notes Initial or Follow up Reassessment Current Diagnosis CKD (stage V CKD),Diabetes, Hypertension,Respiratory Failure Other Pertinent Diagnosis AV graft infection, fever, 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 Percent of energy/protein needs met: 100%/76% Burn Absent Trauma Absent Current % PO Negligible Minimum of two criteria No Reduced Hide Examiner Strength Measurably Reduced (severe) #1 Nutrition Diagnosis Inadequate oral intake Diagnosis Progress(for reassessment Continues documentation) Is patient on ventilator? Yes Is Patient Ambulatory and/or Out of Bed No REE-([facility]-confined to bed) [phone] Calculation Used for Recommendations [facility] Additional Notes Protein: 114g (>/=2g/kg using IBW 57kg) Fluid: per MD Nutrition Intervention Change Diet Order: TF Nutrition Support: Nepro 1.8 at 45ml/hr Flush 200 ml q4h Kcal 1,944 Protein (gm) 87 Fluid (mL) 785 Goal #1 TF tolerance Goal #2 Meet at least 75% of energy and protein needs via TF Anticipated Discharge Needs: unable to determine at this time Follow-Up By: 05/29/19 Additional Comments F/U for TF tolerance
[2019-05-29] MEDS: FAMOTIDINE 20 MG TAB PO SCH (09:11)
[2019-05-29] MEDS: AMIODARONE 200 MG TAB FEEDTUBE SCH ×2 (09:11→21:02)
[2019-05-29 09:12] LABS: ABG Base Excess -9.9 mmol/L (-2.0-3.0); ABG HCO3 16.8 mmol/L (20.0-26.0); ABG PH 7.24 pH Units (7.350-7.450)
[2019-05-29] MEDS: HEPARIN 5,000 UNIT/1 ML VIAL SUB-Q SCH ×2 (09:12→21:24)
[2019-05-29 09:13] LABS: ABG Methemoglobin TNR % (0.0-1.5); ABG Oxygen Saturation 91 % (95.0-99.0)
--- NOTE | 2019-05-29 11:33 | Progress Note ---
Assessment and Plan Cultures: Blood culture 05/15/2019 no growth to date Sputum culture 05/15/2019 Strep pneumoniae Blood culture + fungal blood culture 05/28/2019: no growth thus far A/P: 63 y/o female with history of ESRD s/p AV graft placement 3 days before admission, admitted on 05/15/2019 for fever and drainage from the left upper extremity graft site as well as cough with wheezing and fever 102: #Severe sepsis: fever resolved; likely due to COVID pneumonia #Severe COVID pneumonia: COVID test positive. Also with Strep pneumoniae in sputum likely bacterial pneumonia on top of COVID, s/p treatment with abx. S/p po ivermectin x1 (off label use) on 05/22/2019, S/p tocilizumab IV x 1 05/23/2019, S/p plaquenil and zinc total 5 days #AVG edema / erythema (per vascular not infected - duplex scan demonstrates patent graft with appropriate flow volumes and with minimal fluid noted at the venous anastomosis) #Acute Respiratory Failure: intubated, due to pneumonia #DM: uncontrolled #ESRD on HD #Persistent leukocytosis Recs: On steroid trial, complete 5-7 total days post Actemra Plan to d/c Cefepime, Vancomycin if afebrile and cultures negative at 48 hours ContinueCOVID isolationprecautions per [facility] protocol Delores Gaytan MD, FACP [facility] C: [phone] O: [phone] F: [phone] Subjective Date of service: 05/29/19 Principal diagnosis: Ac hypoxemic resp failure; Hakeem pneumonia; Sepsis; COVID-19 infection; ESRD Interval history: No fever. remains on the vent. PUI?: Yes COVID19: Positive Objective - Exam Narrative Exam: Physical Exam (reviewed in chart due to PPE conservation) Constitutional: intubated, sedated, on the vent Head, Ears, Nose: normocephalic, atraumatic Eyes: limited due to PPE conservation strategy Neck: intubated Oral: intubated Cardiovascular: limited due to PPE conservation strategy Respiratory: limited due to PPE conservation strategy GI: limited due to PPE conservation strategy Musculoskeletal: limited due to PPE conservation strategy Skin: limited due to PPE conservation strategy Hem/Lymphatic: limited due to PPE conservation strategy Psych: no agitation Neurological: sedated, intubated, on the vent, exam limited - Constitutional Vitals: Vital Signs Temp Pulse Resp BP Pulse Ox 97.6 F 76 24 115/51 94 05/29/19 08:00 05/29/19 11:30 05/29/19 11:30 05/29/19 11:30 05/29/19 11:30 Temperature -Last 24 Hours Temperature 97.6 F Temperature 98.6 F Temperature 97.3 F Temperature 97.8 F Temperature 98.9 F Temperature 98.5 F - Labs CBC & Chem 7: 05/28/19 14:48 05/28/19 13:58 Labs: Abnormal lab results 05/28/19 05/28/19 05/28/19 Range/Units 11:57 13:58 14:48 WBC 15.1 H (4.5-11.0) K/mm3 RBC 3.10 L (3.65-5.03) M/mm3 Hgb 8.6 L (10.1-14.3) gm/dl Hct 25.8 L (30.3-42.9) % RDW 15.4 H (13.2-15.2) % Seg Neuts % (Manual) 85.0 H (40.0-70.0) % Lymphocytes % (Manual) 5.0 L (13.4-35.0) % Seg Neutrophils # Man 12.8 H (1.8-7.7) K/mm3 Lymphocytes # (Manual) 0.8 L (1.2-5.4) K/mm3 Monocytes # (Manual) 0.9 H (0.0-0.8) K/mm3 Eosinophils # (Manual) 0.6 H (0.0-0.4) K/mm3 D-Dimer (0-234) ng/mlDDU ABG pH (7.350-7.450) pH Units ABG pO2 (80.0-90.0) mm Hg ABG HCO3 (20.0-26.0) mmol/L ABG O2 Saturation (95.0-99.0) % ABG Base Excess (-2.0-3.0) mmol/L Sodium 135 L (137-145) mmol/L Chloride 90.5 L (98-107) mmol/L Carbon Dioxide 13 L (22-30) mmol/L BUN 117 H (7-17) mg/dL Creatinine 8.9 H (0.7-1.2) mg/dL Glucose 479 H (65-100) mg/dL POC Glucose 347 H (70-105) Ferritin (13.0-400.0) ng/mL C-Reactive Protein (0.00-1.30) mg/dL 05/28/19 05/28/19 05/29/19 Range/Units 18:05 23:56 02:19 WBC (4.5-11.0) K/mm3 RBC (3.65-5.03) M/mm3 Hgb (10.1-14.3) gm/dl Hct (30.3-42.9) % RDW (13.2-15.2) % Seg Neuts % (Manual) (40.0-70.0) % Lymphocytes % (Manual) (13.4-35.0) % Seg Neutrophils # Man (1.8-7.7) K/mm3 Lymphocytes # (Manual) (1.2-5.4) K/mm3 Monocytes # (Manual) (0.0-0.8) K/mm3 Eosinophils # (Manual) (0.0-0.4) K/mm3 D-Dimer (0-234) ng/mlDDU ABG pH 7.24 L (7.350-7.450) pH Units ABG pO2 69.0 L (80.0-90.0) mm Hg ABG HCO3 16.8 L (20.0-26.0) mmol/L ABG O2 Saturation 91 L (95.0-99.0) % ABG Base Excess -9.9 L (-2.0-3.0) mmol/L Sodium (137-145) mmol/L Chloride (98-107) mmol/L Carbon Dioxide (22-30) mmol/L BUN (7-17) mg/dL Creatinine (0.7-1.2) mg/dL Glucose (65-100) mg/dL POC Glucose 434 H 492 H (70-105) Ferritin (13.0-400.0) ng/mL C-Reactive Protein (0.00-1.30) mg/dL 05/29/19 05/29/19 05/29/19 Range/Units 04:13 04:13 04:13 WBC (4.5-11.0) K/mm3 RBC (3.65-5.03) M/mm3 Hgb (10.1-14.3) gm/dl Hct (30.3-42.9) % RDW (13.2-15.2) % Seg Neuts % (Manual) (40.0-70.0) % Lymphocytes % (Manual) (13.4-35.0) % Seg Neutrophils # Man (1.8-7.7) K/mm3 Lymphocytes # (Manual) (1.2-5.4) K/mm3 Monocytes # (Manual) (0.0-0.8) K/mm3 Eosinophils # (Manual) (0.0-0.4) K/mm3 D-Dimer 6984 H (0-234) ng/mlDDU ABG pH (7.350-7.450) pH Units ABG pO2 (80.0-90.0) mm Hg ABG HCO3 (20.0-26.0) mmol/L ABG O2 Saturation (95.0-99.0) % ABG Base Excess (-2.0-3.0) mmol/L Sodium (137-145) mmol/L Chloride (98-107) mmol/L Carbon Dioxide (22-30) mmol/L BUN (7-17) mg/dL Creatinine (0.7-1.2) mg/dL Glucose (65-100) mg/dL POC Glucose (70-105) Ferritin 1723.0 H (13.0-400.0) ng/mL C-Reactive Protein 22.80 H (0.00-1.30) mg/dL 05/29/19 Range/Units 05:26 WBC (4.5-11.0) K/mm3 RBC (3.65-5.03) M/mm3 Hgb (10.1-14.3) gm/dl Hct (30.3-42.9) % RDW (13.2-15.2) % Seg Neuts % (Manual) (40.0-70.0) % Lymphocytes % (Manual) (13.4-35.0) % Seg Neutrophils # Man (1.8-7.7) K/mm3 Lymphocytes # (Manual) (1.2-5.4) K/mm3 Monocytes # (Manual) (0.0-0.8) K/mm3 Eosinophils # (Manual) (0.0-0.4) K/mm3 D-Dimer (0-234) ng/mlDDU ABG pH (7.350-7.450) pH Units ABG pO2 (80.0-90.0) mm Hg ABG HCO3 (20.0-26.0) mmol/L ABG O2 Saturation (95.0-99.0) % ABG Base Excess (-2.0-3.0) mmol/L Sodium (137-145) mmol/L Chloride (98-107) mmol/L Carbon Dioxide (22-30) mmol/L BUN (7-17) mg/dL Creatinine (0.7-1.2) mg/dL Glucose (65-100) mg/dL POC Glucose 457 H (70-105) Ferritin (13.0-400.0) ng/mL C-Reactive Protein (0.00-1.30) mg/dL
--- NOTE | 2019-05-29 13:49 | Progress Note ---
Assessment and Plan Acute hypoxemic respiratory failure, on mechanical ventilatory support. Bilateral pneumonia vs pulmonary edema. Bilateral pleural effusions. Severe Sepsis COVID-19 infection. End-stage renal disease, on dialysis. Acute toxic metabolic encephalopathy. Diabetes type 2. History of congestive heart failure. History of hypertension. Oropharyngeal dysphagia. Gastroesophageal reflux disease. Obesity - continue sedation with fentanyl re: agitation - wean vasopressors for target MAP > 65 mmHg - begin scheduled reglan 10 mg IV q8h to promote GI motility - continue airborne, droplet and contact precautions - follow serum inflammation markers - Conservative fluid management (use vasopressors including midodrine to support blood pressure). - ABG, CXR per protocol - VAP bundle addressed (continue aspiration precautions) - continue to wean supplemental oxygen to keep O2 sats > 90% - continue daily SAT's and SBT assessment - continue Bronchodilators (SHASHANK) with pulm hygiene per RT - sedation target for RASS 0 to -1 - Accuchecks with glycemic control, keep blood glucose 140-180 mg/dL while critically ill (Avoid hypoglycemia) - continue HD/UF for toxin and volume control - Avoid nephrotoxins, adjust and dose all medications for GFR and CrCL - continue GI & VTE prophylaxis - other COVID-19 precautions per [facility] protocol - enteral nutrition at goal rate as tolerated - prn analgesia per CPOT score - mobility protocols to prevent pressure ulcers - GI & VTE prophylaxis - Flu & pneumovax per protocol - continue other care per attending / other consultants ... re-evaluate in am & prn CONDITION: CRITICAL PROGNOSIS: GUARDED CODE STATUS: FULL CODE The high probability of a clinically significant, sudden or life threatening deterioration of the [pulmonary, renal & neurologic] system(s) required my full and direct attention, intervention and personal management. The aggregate critical care time was [35] minutes. This time is in addition to time spent performing reported procedures but includes the following: [x] Data Review and interpretation [x] Patient assessment and monitoring of vital signs [x] Documentation [x] Medication orders and management Subjective Date of service: 05/29/19 Principal diagnosis: Ac hypoxemic resp failure; Hakeem pneumonia; Sepsis; COVID-19 infection; ESRD Interval history: Patient is seen today for: Acute hypoxemic respiratory failure; Bilateral pneumonia vs pulmonary edema; Bilateral pleural effusions; Sepsis; Possible COVID-19 infection; End-stage renal disease, on dialysis; Acute toxic metabolic encephalopathy. Seen and examined at bedside; 24hour events reviewed; nursing and respiratory care staff consulted; no adverse overnight events reported to me; resting peacefully in bed; no real improvement overall; AMS is persistent; remains on MVS; no emesis or overt aspiration PUI?: Yes COVID19: Pending Objective Vital Signs - 12hr 05/29/19 05/29/19 05/29/19 02:00 02:15 02:30 Temperature Pulse Rate 85 83 85 Pulse Rate [ From Monitor] Respiratory 22 Rate Blood Pressure 108/50 105/49 98/52 O2 Sat by Pulse 97 97 95 Oximetry 05/29/19 05/29/19 05/29/19 02:45 03:00 03:14 Temperature 98.6 F Pulse Rate 86 88 Pulse Rate [ From Monitor] Respiratory 27 H 27 H Rate Blood Pressure 98/52 95/50 O2 Sat by Pulse 93 93 Oximetry 05/29/19 05/29/19 05/29/19 03:15 03:30 03:45 Temperature Pulse Rate 82 83 84 Pulse Rate [ From Monitor] Respiratory 26 H 25 H 26 H Rate Blood Pressure 90/45 100/43 96/45 O2 Sat by Pulse 94 95 95 Oximetry 05/29/19 05/29/19 05/29/19 04:00 04:15 04:30 Temperature Pulse Rate 78 77 81 Pulse Rate [ 81 From Monitor] Respiratory 25 H 25 H 25 H Rate Blood Pressure 84/46 84/46 98/53 O2 Sat by Pulse 95 96 96 Oximetry 05/29/19 05/29/19 05/29/19 04:45 05:00 05:02 Temperature Pulse Rate 77 78 81 Pulse Rate [ From Monitor] Respiratory 25 H 26 H Rate Blood Pressure 104/47 102/46 102/46 O2 Sat by Pulse 96 96 96 Oximetry 05/29/19 05/29/19 05/29/19 05:15 05:31 05:45 Temperature Pulse Rate 84 79 77 Pulse Rate [ From Monitor] Respiratory 25 H 22 22 Rate Blood Pressure 93/47 118/55 118/55 O2 Sat by Pulse 96 96 96 Oximetry 05/29/19 05/29/19 05/29/19 06:00 06:15 06:30 Temperature Pulse Rate 76 75 76 Pulse Rate [ From Monitor] Respiratory 24 22 25 H Rate Blood Pressure 149/55 130/51 133/55 O2 Sat by Pulse 96 94 97 Oximetry 05/29/19 05/29/19 05/29/19 06:45 07:00 07:15 Temperature Pulse Rate 75 75 75 Pulse Rate [ From Monitor] Respiratory 25 H 25 H 25 H Rate Blood Pressure 119/50 121/52 114/54 O2 Sat by Pulse 96 95 97 Oximetry 05/29/19 05/29/19 05/29/19 07:30 07:45 08:00 Temperature 97.6 F Pulse Rate 75 76 76 Pulse Rate [ 76 From Monitor] Respiratory 25 H 22 25 H Rate Blood Pressure 123/52 123/51 111/53 O2 Sat by Pulse 97 94 94 Oximetry 05/29/19 05/29/19 05/29/19 08:15 08:25 08:30 Temperature Pulse Rate 76 77 76 Pulse Rate [ From Monitor] Respiratory 25 H 50 H Rate Blood Pressure 122/51 111/53 135/53 O2 Sat by Pulse 96 97 95 Oximetry 05/29/19 05/29/19 05/29/19 08:45 09:00 09:15 Temperature Pulse Rate 81 83 74 Pulse Rate [ From Monitor] Respiratory 24 25 H 25 H Rate Blood Pressure 135/53 170/59 77/38 O2 Sat by Pulse 96 91 93 Oximetry 05/29/19 05/29/19 05/29/19 09:30 09:45 10:00 Temperature Pulse Rate 76 77 75 Pulse Rate [ From Monitor] Respiratory 26 H 25 H 25 H Rate Blood Pressure 92/46 94/44 89/47 O2 Sat by Pulse 95 94 95 Oximetry 05/29/19 05/29/19 05/29/19 10:15 10:30 10:45 Temperature Pulse Rate 75 76 74 Pulse Rate [ From Monitor] Respiratory 24 25 H 25 H Rate Blood Pressure 92/46 96/43 88/42 O2 Sat by Pulse 96 93 93 Oximetry 05/29/19 05/29/19 05/29/19 11:00 11:15 11:30 Temperature Pulse Rate 77 77 76 Pulse Rate [ From Monitor] Respiratory 26 H 24 24 Rate Blood Pressure 117/49 117/49 115/51 O2 Sat by Pulse 93 93 94 Oximetry 05/29/19 05/29/19 05/29/19 11:45 12:00 12:31 Temperature 97.9 F Pulse Rate 77 78 76 Pulse Rate [ 77 From Monitor] Respiratory 26 H 23 Rate Blood Pressure 127/53 131/53 92/46 O2 Sat by Pulse 94 93 95 Oximetry Constitutional: appears uncomfortable, other (elderly looking obese AAF, normocephalic with no mildly increased work of breathing) Eyes: non-icteric ENT: oropharynx moist, other (ETT 24 cm KARLA) Neck: supple, no lymphadenopathy Effort: mildly labored Ascultation: Bilateral: diminished breath sounds, rhonchi Percussion: Bilateral: not dull Cardiovascular: regular rate and rhythm Gastrointestinal: normoactive bowel sounds, soft, non-tender, non-distended Integumentary: rash Extremities: no cyanosis, no edema, pulses normal, no ischemia or petechiae Neurologic: normal mental status, non-focal exam (grossly), pupils equal and round Psychiatric: other (unable to assess re: AMS) CBC and BMP: 05/30/19 04:36 05/30/19 04:36 ABG, PT/INR, D-dimer: ABG ABG pH 7.24 pH Units (7.350-7.450) L 05/29/19 02:19 ABG pCO2 40.0 mm Hg 05/29/19 02:19 ABG pO2 69.0 mm Hg (80.0-90.0) L 05/29/19 02:19 ABG O2 Saturation 91 % (95.0-99.0) L 05/29/19 02:19 PT/INR, D-dimer D-Dimer 6984 ng/mlDDU (0-234) H 05/29/19 04:13 Abnormal lab findings: Abnormal Labs 05/15/19 05/15/19 05/15/19 08:07 08:31 09:11 WBC 11.9 H RBC 3.41 L Hgb 9.3 L Hct 30.1 L MCH 27 L RDW Lymph % (Auto) Lymph # Seg Neutrophils % Seg Neuts % (Manual) Lymphocytes % (Manual) Seg Neutrophils # Seg Neutrophils # Man Lymphocytes # (Manual) Monocytes # (Manual) Eosinophils # (Manual) D-Dimer ABG pH ABG pO2 ABG HCO3 ABG O2 Saturation ABG Base Excess ABG Hemoglobin Oxyhemoglobin Sodium 136 L Potassium Chloride Carbon Dioxide 15 L D BUN 74 H Creatinine 5.8 H Glucose 267 H POC Glucose 344 H Hemoglobin A1c Lactic Acid Calcium Phosphorus Ferritin AST ALT < 5 L Alkaline Phosphatase Lactate Dehydrogenase C-Reactive Protein NT-Pro-B Natriuret Pep Albumin 3.2 L Salicylates Acetaminophen Crossmatch 05/15/19 05/15/19 05/15/19 09:11 09:11 09:30 WBC RBC Hgb Hct MCH RDW Lymph % (Auto) Lymph # Seg Neutrophils % Seg Neuts % (Manual) Lymphocytes % (Manual) Seg Neutrophils # Seg Neutrophils # Man Lymphocytes # (Manual) Monocytes # (Manual) Eosinophils # (Manual) D-Dimer ABG pH ABG pO2 ABG HCO3 ABG O2 Saturation ABG Base Excess -2.8 L ABG Hemoglobin 8.2 L Oxyhemoglobin 94.6 L Sodium Potassium Chloride Carbon Dioxide BUN Creatinine Glucose POC Glucose Hemoglobin A1c Lactic Acid 3.50 H* Calcium Phosphorus Ferritin AST ALT Alkaline Phosphatase Lactate Dehydrogenase C-Reactive Protein NT-Pro-B Natriuret Pep 7240 H Albumin Salicylates Acetaminophen Crossmatch 05/15/19 05/15/19 05/15/19 13:10 13:10 Unknown WBC RBC Hgb Hct MCH RDW Lymph % (Auto) Lymph # Seg Neutrophils % Seg Neuts % (Manual) Lymphocytes % (Manual) Seg Neutrophils # Seg Neutrophils # Man Lymphocytes # (Manual) Monocytes # (Manual) Eosinophils # (Manual) D-Dimer ABG pH ABG pO2 ABG HCO3 ABG O2 Saturation ABG Base Excess ABG Hemoglobin Oxyhemoglobin Sodium Potassium Chloride Carbon Dioxide BUN Creatinine Glucose POC Glucose Hemoglobin A1c 7.7 H Lactic Acid Calcium Phosphorus Ferritin AST ALT Alkaline Phosphatase Lactate Dehydrogenase C-Reactive Protein NT-Pro-B Natriuret Pep Albumin Salicylates < 0.3 L Acetaminophen < 5.0 L Crossmatch 05/16/19 05/16/19 05/16/19 03:44 03:58 13:08 WBC 12.9 H RBC Hgb Hct MCH RDW Lymph % (Auto) 7.1 L Lymph # 0.9 L Seg Neutrophils % 87.7 H Seg Neuts % (Manual) Lymphocytes % (Manual) Seg Neutrophils # 11.3 H Seg Neutrophils # Man Lymphocytes # (Manual) Monocytes # (Manual) Eosinophils # (Manual) D-Dimer ABG pH ABG pO2 213.3 H ABG HCO3 ABG O2 Saturation 99.3 H ABG Base Excess ABG Hemoglobin 7.5 L Oxyhemoglobin Sodium Potassium Chloride Carbon Dioxide BUN Creatinine Glucose POC Glucose 231 H Hemoglobin A1c Lactic Acid Calcium Phosphorus Ferritin AST ALT Alkaline Phosphatase Lactate Dehydrogenase C-Reactive Protein NT-Pro-B Natriuret Pep Albumin Salicylates Acetaminophen Crossmatch 05/16/19 05/16/19 05/17/19 18:28 23:34 05:02 WBC RBC Hgb Hct MCH RDW Lymph % (Auto) Lymph # Seg Neutrophils % Seg Neuts % (Manual) Lymphocytes % (Manual) Seg Neutrophils # Seg Neutrophils # Man Lymphocytes # (Manual) Monocytes # (Manual) Eosinophils # (Manual) D-Dimer ABG pH ABG pO2 91.9 H ABG HCO3 ABG O2 Saturation ABG Base Excess -3.6 L ABG Hemoglobin 7.2 L Oxyhemoglobin Sodium Potassium Chloride Carbon Dioxide BUN Creatinine Glucose POC Glucose 181 H 177 H Hemoglobin A1c Lactic Acid Calcium Phosphorus Ferritin AST ALT Alkaline Phosphatase Lactate Dehydrogenase C-Reactive Protein NT-Pro-B Natriuret Pep Albumin Salicylates Acetaminophen Crossmatch 05/17/19 05/17/19 05/17/19 05:43 05:43 15:15 WBC RBC 3.06 L Hgb 8.6 L Hct 26.1 L D MCH RDW Lymph % (Auto) 6.4 L Lymph # 0.5 L Seg Neutrophils % 87.5 H Seg Neuts % (Manual) Lymphocytes % (Manual) Seg Neutrophils # Seg Neutrophils # Man Lymphocytes # (Manual) Monocytes # (Manual) Eosinophils # (Manual) D-Dimer ABG pH ABG pO2 ABG HCO3 ABG O2 Saturation ABG Base Excess ABG Hemoglobin Oxyhemoglobin Sodium Potassium Chloride Carbon Dioxide 17 L BUN 76 H Creatinine 5.4 H Glucose 231 H POC Glucose 302 H Hemoglobin A1c Lactic Acid Calcium Phosphorus Ferritin AST ALT Alkaline Phosphatase Lactate Dehydrogenase C-Reactive Protein NT-Pro-B Natriuret Pep Albumin Salicylates Acetaminophen Crossmatch 05/17/19 05/18/19 05/18/19 18:44 00:04 05:35 WBC RBC Hgb Hct MCH RDW Lymph % (Auto) Lymph # Seg Neutrophils % Seg Neuts % (Manual) Lymphocytes % (Manual) Seg Neutrophils # Seg Neutrophils # Man Lymphocytes # (Manual) Monocytes # (Manual) Eosinophils # (Manual) D-Dimer ABG pH ABG pO2 ABG HCO3 ABG O2 Saturation ABG Base Excess ABG Hemoglobin Oxyhemoglobin Sodium Potassium Chloride Carbon Dioxide BUN Creatinine Glucose POC Glucose 258 H 331 H 329 H Hemoglobin A1c Lactic Acid Calcium Phosphorus Ferritin AST ALT Alkaline Phosphatase Lactate Dehydrogenase C-Reactive Protein NT-Pro-B Natriuret Pep Albumin Salicylates Acetaminophen Crossmatch 05/18/19 05/18/19 05/18/19 11:15 11:15 11:15 WBC RBC Hgb Hct MCH RDW Lymph % (Auto) Lymph # Seg Neutrophils % Seg Neuts % (Manual) Lymphocytes % (Manual) Seg Neutrophils # Seg Neutrophils # Man Lymphocytes # (Manual) Monocytes # (Manual) Eosinophils # (Manual) D-Dimer 5072.66 H ABG pH ABG pO2 ABG HCO3 ABG O2 Saturation ABG Base Excess ABG Hemoglobin Oxyhemoglobin Sodium 146 H Potassium Chloride Carbon Dioxide 18 L BUN 99 H Creatinine 6.1 H Glucose 346 H POC Glucose Hemoglobin A1c Lactic Acid Calcium Phosphorus Ferritin 975.6 H AST ALT < 5 L Alkaline Phosphatase Lactate Dehydrogenase C-Reactive Protein NT-Pro-B Natriuret Pep Albumin 3.0 L Salicylates Acetaminophen Crossmatch 05/18/19 05/18/19 05/18/19 11:15 11:55 18:11 WBC RBC Hgb Hct MCH RDW Lymph % (Auto) Lymph # Seg Neutrophils % Seg Neuts % (Manual) Lymphocytes % (Manual) Seg Neutrophils # Seg Neutrophils # Man Lymphocytes # (Manual) Monocytes # (Manual) Eosinophils # (Manual) D-Dimer ABG pH ABG pO2 ABG HCO3 ABG O2 Saturation ABG Base Excess ABG Hemoglobin Oxyhemoglobin Sodium Potassium Chloride Carbon Dioxide BUN Creatinine Glucose POC Glucose 334 H 397 H Hemoglobin A1c Lactic Acid Calcium Phosphorus Ferritin AST ALT Alkaline Phosphatase Lactate Dehydrogenase 483 H C-Reactive Protein 38.00 H NT-Pro-B Natriuret Pep Albumin Salicylates Acetaminophen Crossmatch 05/18/19 05/19/19 05/19/19 Unknown 00:30 05:07 WBC RBC Hgb Hct MCH RDW Lymph % (Auto) Lymph # Seg Neutrophils % Seg Neuts % (Manual) Lymphocytes % (Manual) Seg Neutrophils # Seg Neutrophils # Man Lymphocytes # (Manual) Monocytes # (Manual) Eosinophils # (Manual) D-Dimer ABG pH ABG pO2 133.0 H 61.1 L ABG HCO3 ABG O2 Saturation 94.4 L ABG Base Excess -2.9 L -2.7 L ABG Hemoglobin 8.3 L 8.0 L Oxyhemoglobin 92.2 L Sodium Potassium Chloride Carbon Dioxide BUN Creatinine Glucose POC Glucose 321 H Hemoglobin A1c Lactic Acid Calcium Phosphorus Ferritin AST ALT Alkaline Phosphatase Lactate Dehydrogenase C-Reactive Protein NT-Pro-B Natriuret Pep Albumin Salicylates Acetaminophen Crossmatch 05/19/19 05/19/19 05/19/19 05:17 12:23 15:02 WBC RBC Hgb Hct MCH RDW Lymph % (Auto) Lymph # Seg Neutrophils % Seg Neuts % (Manual) Lymphocytes % (Manual) Seg Neutrophils # Seg Neutrophils # Man Lymphocytes # (Manual) Monocytes # (Manual) Eosinophils # (Manual) D-Dimer ABG pH ABG pO2 ABG HCO3 ABG O2 Saturation ABG Base Excess ABG Hemoglobin Oxyhemoglobin Sodium 147 H Potassium Chloride 108.2 H Carbon Dioxide 16 L BUN 119 H Creatinine 8.5 H Glucose 315 H POC Glucose 235 H 298 H Hemoglobin A1c Lactic Acid Calcium 8.3 L Phosphorus Ferritin AST ALT Alkaline Phosphatase Lactate Dehydrogenase C-Reactive Protein NT-Pro-B Natriuret Pep Albumin Salicylates Acetaminophen Crossmatch 05/19/19 05/20/19 05/20/19 17:42 00:11 04:17 WBC RBC Hgb Hct MCH RDW Lymph % (Auto) Lymph # Seg Neutrophils % Seg Neuts % (Manual) Lymphocytes % (Manual) Seg Neutrophils # Seg Neutrophils # Man Lymphocytes # (Manual) Monocytes # (Manual) Eosinophils # (Manual) D-Dimer ABG pH 7.322 L ABG pO2 58.5 L ABG HCO3 18.9 L ABG O2 Saturation 91.0 L ABG Base Excess -6.5 L ABG Hemoglobin 7.0 L Oxyhemoglobin 88.2 L Sodium Potassium Chloride Carbon Dioxide BUN Creatinine Glucose POC Glucose 310 H 277 H Hemoglobin A1c Lactic Acid Calcium Phosphorus Ferritin AST ALT Alkaline Phosphatase Lactate Dehydrogenase C-Reactive Protein NT-Pro-B Natriuret Pep Albumin Salicylates Acetaminophen Crossmatch 05/20/19 05/20/19 05/20/19 05:29 09:06 09:06 WBC RBC Hgb Hct MCH RDW Lymph % (Auto) Lymph # Seg Neutrophils % Seg Neuts % (Manual) Lymphocytes % (Manual) Seg Neutrophils # Seg Neutrophils # Man Lymphocytes # (Manual) Monocytes # (Manual) Eosinophils # (Manual) D-Dimer 3193.32 H ABG pH ABG pO2 ABG HCO3 ABG O2 Saturation ABG Base Excess ABG Hemoglobin Oxyhemoglobin Sodium Potassium Chloride Carbon Dioxide BUN Creatinine Glucose POC Glucose 332 H Hemoglobin A1c Lactic Acid Calcium Phosphorus Ferritin 1802.0 H AST ALT Alkaline Phosphatase Lactate Dehydrogenase C-Reactive Protein NT-Pro-B Natriuret Pep Albumin Salicylates Acetaminophen Crossmatch 05/20/19 05/20/19 05/20/19 09:06 12:31 18:18 WBC RBC Hgb Hct MCH RDW Lymph % (Auto) Lymph # Seg Neutrophils % Seg Neuts % (Manual) Lymphocytes % (Manual) Seg Neutrophils # Seg Neutrophils # Man Lymphocytes # (Manual) Monocytes # (Manual) Eosinophils # (Manual) D-Dimer ABG pH ABG pO2 ABG HCO3 ABG O2 Saturation ABG Base Excess ABG Hemoglobin Oxyhemoglobin Sodium Potassium Chloride Carbon Dioxide BUN Creatinine Glucose POC Glucose 284 H 355 H Hemoglobin A1c Lactic Acid Calcium Phosphorus Ferritin AST ALT Alkaline Phosphatase Lactate Dehydrogenase 646 H C-Reactive Protein 56.30 H NT-Pro-B Natriuret Pep Albumin Salicylates Acetaminophen Crossmatch 05/20/19 05/21/19 05/21/19 23:43 05:04 05:05 WBC RBC Hgb Hct MCH RDW Lymph % (Auto) Lymph # Seg Neutrophils % Seg Neuts % (Manual) Lymphocytes % (Manual) Seg Neutrophils # Seg Neutrophils # Man Lymphocytes # (Manual) Monocytes # (Manual) Eosinophils # (Manual) D-Dimer ABG pH ABG pO2 54.1 L ABG HCO3 ABG O2 Saturation 88.4 L ABG Base Excess -4.0 L ABG Hemoglobin 6.9 L Oxyhemoglobin 85.5 L Sodium Potassium Chloride Carbon Dioxide BUN Creatinine Glucose POC Glucose 394 H 394 H Hemoglobin A1c Lactic Acid Calcium Phosphorus Ferritin AST ALT Alkaline Phosphatase Lactate Dehydrogenase C-Reactive Protein NT-Pro-B Natriuret Pep Albumin Salicylates Acetaminophen Crossmatch 05/21/19 05/21/19 05/21/19 12:14 17:41 23:25 WBC RBC Hgb Hct MCH RDW Lymph % (Auto) Lymph # Seg Neutrophils % Seg Neuts % (Manual) Lymphocytes % (Manual) Seg Neutrophils # Seg Neutrophils # Man Lymphocytes # (Manual) Monocytes # (Manual) Eosinophils # (Manual) D-Dimer ABG pH 7.281 L ABG pO2 61.2 L ABG HCO3 ABG O2 Saturation 91.6 L ABG Base Excess -4.8 L ABG Hemoglobin 6.2 L Oxyhemoglobin 88.9 L Sodium Potassium Chloride Carbon Dioxide BUN Creatinine Glucose POC Glucose 457 H 427 H Hemoglobin A1c Lactic Acid Calcium Phosphorus Ferritin AST ALT Alkaline Phosphatase Lactate Dehydrogenase C-Reactive Protein NT-Pro-B Natriuret Pep Albumin Salicylates Acetaminophen Crossmatch 05/21/19 05/22/19 05/22/19 23:45 04:35 04:48 WBC RBC Hgb Hct MCH RDW Lymph % (Auto) Lymph # Seg Neutrophils % Seg Neuts % (Manual) Lymphocytes % (Manual) Seg Neutrophils # Seg Neutrophils # Man Lymphocytes # (Manual) Monocytes # (Manual) Eosinophils # (Manual) D-Dimer ABG pH ABG pO2 ABG HCO3 ABG O2 Saturation ABG Base Excess ABG Hemoglobin Oxyhemoglobin Sodium Potassium Chloride Carbon Dioxide BUN Creatinine Glucose POC Glucose 453 H 470 H Hemoglobin A1c Lactic Acid Calcium Phosphorus Ferritin AST ALT Alkaline Phosphatase Lactate Dehydrogenase 978 H C-Reactive Protein 57.20 H NT-Pro-B Natriuret Pep Albumin Salicylates Acetaminophen Crossmatch 05/22/19 05/22/19 05/22/19 04:48 04:48 09:33 WBC 12.0 H RBC 2.47 L Hgb 7.0 L Hct 22.0 L MCH RDW 16.3 H Lymph % (Auto) Lymph # Seg Neutrophils % Seg Neuts % (Manual) Lymphocytes % (Manual) Seg Neutrophils # Seg Neutrophils # Man Lymphocytes # (Manual) Monocytes # (Manual) Eosinophils # (Manual) D-Dimer ABG pH 7.331 L ABG pO2 62.5 L ABG HCO3 ABG O2 Saturation 90.2 L ABG Base Excess -5.0 L ABG Hemoglobin 6.4 L Oxyhemoglobin 87.8 L Sodium Potassium Chloride Carbon Dioxide 17 L BUN 176 H Creatinine 12.0 H Glucose 493 H POC Glucose Hemoglobin A1c Lactic Acid Calcium Phosphorus Ferritin AST ALT Alkaline Phosphatase Lactate Dehydrogenase C-Reactive Protein NT-Pro-B Natriuret Pep Albumin Salicylates Acetaminophen Crossmatch 05/22/19 05/22/19 05/22/19 10:11 12:49 13:16 WBC RBC Hgb Hct MCH RDW Lymph % (Auto) Lymph # Seg Neutrophils % Seg Neuts % (Manual) Lymphocytes % (Manual) Seg Neutrophils # Seg Neutrophils # Man Lymphocytes # (Manual) Monocytes # (Manual) Eosinophils # (Manual) D-Dimer 3046.75 H ABG pH ABG pO2 ABG HCO3 ABG O2 Saturation ABG Base Excess ABG Hemoglobin Oxyhemoglobin Sodium Potassium Chloride Carbon Dioxide BUN Creatinine Glucose POC Glucose > 500 H Hemoglobin A1c Lactic Acid Calcium Phosphorus Ferritin 2525.0 H AST ALT Alkaline Phosphatase Lactate Dehydrogenase C-Reactive Protein NT-Pro-B Natriuret Pep Albumin Salicylates Acetaminophen Crossmatch 05/22/19 05/22/19 05/23/19 17:36 23:51 04:12 WBC RBC Hgb Hct MCH RDW Lymph % (Auto) Lymph # Seg Neutrophils % Seg Neuts % (Manual) Lymphocytes % (Manual) Seg Neutrophils # Seg Neutrophils # Man Lymphocytes # (Manual) Monocytes # (Manual) Eosinophils # (Manual) D-Dimer ABG pH ABG pO2 54.9 L ABG HCO3 ABG O2 Saturation 93.8 L ABG Base Excess -2.4 L ABG Hemoglobin 5.9 L Oxyhemoglobin 91.5 L Sodium Potassium Chloride Carbon Dioxide BUN Creatinine Glucose POC Glucose > 500 H 302 H Hemoglobin A1c Lactic Acid Calcium Phosphorus Ferritin AST ALT Alkaline Phosphatase Lactate Dehydrogenase C-Reactive Protein NT-Pro-B Natriuret Pep Albumin Salicylates Acetaminophen Crossmatch 05/23/19 05/23/19 05/23/19 05:45 13:38 17:07 WBC RBC Hgb Hct MCH RDW Lymph % (Auto) Lymph # Seg Neutrophils % Seg Neuts % (Manual) Lymphocytes % (Manual) Seg Neutrophils # Seg Neutrophils # Man Lymphocytes # (Manual) Monocytes # (Manual) Eosinophils # (Manual) D-Dimer ABG pH ABG pO2 ABG HCO3 ABG O2 Saturation ABG Base Excess ABG Hemoglobin Oxyhemoglobin Sodium Potassium Chloride Carbon Dioxide BUN Creatinine Glucose POC Glucose 279 H 269 H 205 H Hemoglobin A1c Lactic Acid Calcium Phosphorus Ferritin AST ALT Alkaline Phosphatase Lactate Dehydrogenase C-Reactive Protein NT-Pro-B Natriuret Pep Albumin Salicylates Acetaminophen Crossmatch 05/23/19 05/24/19 05/24/19 21:07 00:01 03:55 WBC RBC Hgb Hct MCH RDW Lymph % (Auto) Lymph # Seg Neutrophils % Seg Neuts % (Manual) Lymphocytes % (Manual) Seg Neutrophils # Seg Neutrophils # Man Lymphocytes # (Manual) Monocytes # (Manual) Eosinophils # (Manual) D-Dimer ABG pH 7.471 H ABG pO2 163.2 H ABG HCO3 ABG O2 Saturation 99.1 H ABG Base Excess ABG Hemoglobin 6.0 L Oxyhemoglobin Sodium Potassium Chloride Carbon Dioxide BUN Creatinine Glucose POC Glucose 274 H 260 H Hemoglobin A1c Lactic Acid Calcium Phosphorus Ferritin AST ALT Alkaline Phosphatase Lactate Dehydrogenase C-Reactive Protein NT-Pro-B Natriuret Pep Albumin Salicylates Acetaminophen Crossmatch 05/24/19 05/24/19 05/24/19 05:00 05:00 05:00 WBC RBC Hgb Hct MCH RDW Lymph % (Auto) Lymph # Seg Neutrophils % Seg Neuts % (Manual) Lymphocytes % (Manual) Seg Neutrophils # Seg Neutrophils # Man Lymphocytes # (Manual) Monocytes # (Manual) Eosinophils # (Manual) D-Dimer 2422.36 H ABG pH ABG pO2 ABG HCO3 ABG O2 Saturation ABG Base Excess ABG Hemoglobin Oxyhemoglobin Sodium Potassium Chloride Carbon Dioxide BUN Creatinine Glucose POC Glucose Hemoglobin A1c Lactic Acid Calcium Phosphorus Ferritin 3849.0 H AST ALT Alkaline Phosphatase Lactate Dehydrogenase 904 H C-Reactive Protein 44.40 H NT-Pro-B Natriuret Pep Albumin Salicylates Acetaminophen Crossmatch 05/24/19 05/24/19 05/24/19 05:00 05:00 05:29 WBC 17.2 H RBC 2.16 L Hgb 5.9 L* Hct 18.1 L* MCH 27 L RDW 15.3 H Lymph % (Auto) Lymph # Seg Neutrophils % Seg Neuts % (Manual) Lymphocytes % (Manual) Seg Neutrophils # Seg Neutrophils # Man Lymphocytes # (Manual) Monocytes # (Manual) Eosinophils # (Manual) D-Dimer ABG pH ABG pO2 ABG HCO3 ABG O2 Saturation ABG Base Excess ABG Hemoglobin Oxyhemoglobin Sodium Potassium 3.5 L D Chloride 93.4 L Carbon Dioxide 21 L BUN 97 H Creatinine 7.9 H Glucose 312 H POC Glucose 339 H Hemoglobin A1c Lactic Acid Calcium Phosphorus Ferritin AST ALT Alkaline Phosphatase Lactate Dehydrogenase C-Reactive Protein NT-Pro-B Natriuret Pep Albumin Salicylates Acetaminophen Crossmatch 05/24/19 05/24/19 05/24/19 08:45 12:48 18:05 WBC RBC Hgb Hct MCH RDW Lymph % (Auto) Lymph # Seg Neutrophils % Seg Neuts % (Manual) Lymphocytes % (Manual) Seg Neutrophils # Seg Neutrophils # Man Lymphocytes # (Manual) Monocytes # (Manual) Eosinophils # (Manual) D-Dimer ABG pH ABG pO2 ABG HCO3 ABG O2 Saturation ABG Base Excess ABG Hemoglobin Oxyhemoglobin Sodium Potassium Chloride Carbon Dioxide BUN Creatinine Glucose POC Glucose 270 H 154 H Hemoglobin A1c Lactic Acid Calcium Phosphorus Ferritin AST ALT Alkaline Phosphatase Lactate Dehydrogenase C-Reactive Protein NT-Pro-B Natriuret Pep Albumin Salicylates Acetaminophen Crossmatch See Detail 05/24/19 05/25/19 05/25/19 23:49 04:00 04:01 WBC 14.9 H RBC 3.62 L Hgb 9.8 L D Hct 29.3 L D MCH 27 L RDW Lymph % (Auto) Lymph # Seg Neutrophils % Seg Neuts % (Manual) Lymphocytes % (Manual) Seg Neutrophils # Seg Neutrophils # Man Lymphocytes # (Manual) Monocytes # (Manual) Eosinophils # (Manual) D-Dimer ABG pH ABG pO2 52.6 L ABG HCO3 ABG O2 Saturation 87.6 L ABG Base Excess ABG Hemoglobin 11.5 L Oxyhemoglobin 85.7 L Sodium Potassium Chloride Carbon Dioxide BUN Creatinine Glucose POC Glucose 199 H Hemoglobin A1c Lactic Acid Calcium Phosphorus Ferritin AST ALT Alkaline Phosphatase Lactate Dehydrogenase C-Reactive Protein NT-Pro-B Natriuret Pep Albumin Salicylates Acetaminophen Crossmatch 05/25/19 05/25/19 05/25/19 04:01 05:41 08:33 WBC RBC Hgb Hct MCH RDW Lymph % (Auto) Lymph # Seg Neutrophils % Seg Neuts % (Manual) Lymphocytes % (Manual) Seg Neutrophils # Seg Neutrophils # Man Lymphocytes # (Manual) Monocytes # (Manual) Eosinophils # (Manual) D-Dimer ABG pH 7.459 H ABG pO2 56.8 L ABG HCO3 ABG O2 Saturation 89.8 L ABG Base Excess ABG Hemoglobin 9.2 L Oxyhemoglobin 87.8 L Sodium Potassium 2.8 L* Chloride 96.4 L Carbon Dioxide BUN 59 H Creatinine 5.2 H Glucose 147 H POC Glucose 127 H Hemoglobin A1c Lactic Acid Calcium Phosphorus Ferritin AST 128 H ALT Alkaline Phosphatase 142 H Lactate Dehydrogenase C-Reactive Protein NT-Pro-B Natriuret Pep Albumin 2.9 L Salicylates Acetaminophen Crossmatch 05/25/19 05/25/19 05/25/19 12:03 13:36 17:13 WBC RBC Hgb Hct MCH RDW Lymph % (Auto) Lymph # Seg Neutrophils % Seg Neuts % (Manual) Lymphocytes % (Manual) Seg Neutrophils # Seg Neutrophils # Man Lymphocytes # (Manual) Monocytes # (Manual) Eosinophils # (Manual) D-Dimer ABG pH ABG pO2 ABG HCO3 ABG O2 Saturation ABG Base Excess ABG Hemoglobin Oxyhemoglobin Sodium Potassium Chloride Carbon Dioxide BUN Creatinine Glucose POC Glucose 42 L 108 H 168 H Hemoglobin A1c Lactic Acid Calcium Phosphorus Ferritin AST ALT Alkaline Phosphatase Lactate Dehydrogenase C-Reactive Protein NT-Pro-B Natriuret Pep Albumin Salicylates Acetaminophen Crossmatch 05/25/19 05/26/19 05/26/19 23:43 03:43 03:43 WBC 20.3 H RBC 3.56 L Hgb 9.7 L Hct 29.4 L MCH 27 L RDW Lymph % (Auto) Lymph # Seg Neutrophils % Seg Neuts % (Manual) Lymphocytes % (Manual) Seg Neutrophils # Seg Neutrophils # Man Lymphocytes # (Manual) Monocytes # (Manual) Eosinophils # (Manual) D-Dimer ABG pH ABG pO2 ABG HCO3 ABG O2 Saturation ABG Base Excess ABG Hemoglobin Oxyhemoglobin Sodium Potassium Chloride Carbon Dioxide 18 L BUN 85 H Creatinine 7.6 H Glucose 229 H POC Glucose 266 H Hemoglobin A1c Lactic Acid Calcium Phosphorus Ferritin AST ALT Alkaline Phosphatase Lactate Dehydrogenase C-Reactive Protein NT-Pro-B Natriuret Pep Albumin Salicylates Acetaminophen Crossmatch 05/26/19 05/26/19 05/26/19 03:43 03:56 04:51 WBC RBC Hgb Hct MCH RDW Lymph % (Auto) Lymph # Seg Neutrophils % Seg Neuts % (Manual) Lymphocytes % (Manual) Seg Neutrophils # Seg Neutrophils # Man Lymphocytes # (Manual) Monocytes # (Manual) Eosinophils # (Manual) D-Dimer ABG pH ABG pO2 71.9 L ABG HCO3 19.6 L ABG O2 Saturation ABG Base Excess -3.9 L ABG Hemoglobin 9.7 L Oxyhemoglobin 93.6 L Sodium Potassium Chloride Carbon Dioxide BUN Creatinine Glucose POC Glucose 222 H Hemoglobin A1c Lactic Acid Calcium Phosphorus Ferritin AST ALT Alkaline Phosphatase Lactate Dehydrogenase 925 H C-Reactive Protein 22.20 H NT-Pro-B Natriuret Pep Albumin Salicylates Acetaminophen Crossmatch 05/26/19 05/26/19 05/26/19 11:53 17:55 21:48 WBC RBC Hgb Hct MCH RDW Lymph % (Auto) Lymph # Seg Neutrophils % Seg Neuts % (Manual) Lymphocytes % (Manual) Seg Neutrophils # Seg Neutrophils # Man Lymphocytes # (Manual) Monocytes # (Manual) Eosinophils # (Manual) D-Dimer 7143.61 H ABG pH ABG pO2 ABG HCO3 ABG O2 Saturation ABG Base Excess ABG Hemoglobin Oxyhemoglobin Sodium Potassium Chloride Carbon Dioxide BUN Creatinine Glucose POC Glucose 212 H 229 H Hemoglobin A1c Lactic Acid Calcium Phosphorus Ferritin AST ALT Alkaline Phosphatase Lactate Dehydrogenase C-Reactive Protein NT-Pro-B Natriuret Pep Albumin Salicylates Acetaminophen Crossmatch 05/26/19 05/27/19 05/27/19 21:48 00:07 00:17 WBC RBC Hgb Hct MCH RDW Lymph % (Auto) Lymph # Seg Neutrophils % Seg Neuts % (Manual) Lymphocytes % (Manual) Seg Neutrophils # Seg Neutrophils # Man Lymphocytes # (Manual) Monocytes # (Manual) Eosinophils # (Manual) D-Dimer ABG pH ABG pO2 ABG HCO3 ABG O2 Saturation ABG Base Excess ABG Hemoglobin Oxyhemoglobin Sodium Potassium Chloride Carbon Dioxide BUN Creatinine Glucose POC Glucose 235 H 274 H Hemoglobin A1c Lactic Acid Calcium Phosphorus Ferritin > 2000.0 H AST ALT Alkaline Phosphatase Lactate Dehydrogenase C-Reactive Protein NT-Pro-B Natriuret Pep Albumin Salicylates Acetaminophen Crossmatch 05/27/19 05/27/19 05/27/19 05:20 08:59 12:26 WBC RBC Hgb Hct MCH RDW Lymph % (Auto) Lymph # Seg Neutrophils % Seg Neuts % (Manual) Lymphocytes % (Manual) Seg Neutrophils # Seg Neutrophils # Man Lymphocytes # (Manual) Monocytes # (Manual) Eosinophils # (Manual) D-Dimer ABG pH ABG pO2 ABG HCO3 ABG O2 Saturation ABG Base Excess ABG Hemoglobin Oxyhemoglobin Sodium Potassium 3.3 L Chloride 94.3 L Carbon Dioxide 14 L BUN 88 H Creatinine 6.8 H Glucose 296 H POC Glucose 338 H 313 H Hemoglobin A1c Lactic Acid Calcium Phosphorus 6.50 H Ferritin AST ALT Alkaline Phosphatase Lactate Dehydrogenase C-Reactive Protein NT-Pro-B Natriuret Pep Albumin Salicylates Acetaminophen Crossmatch 05/27/19 05/27/19 05/28/19 17:54 Unknown 00:07 WBC RBC Hgb Hct MCH RDW Lymph % (Auto) Lymph # Seg Neutrophils % Seg Neuts % (Manual) Lymphocytes % (Manual) Seg Neutrophils # Seg Neutrophils # Man Lymphocytes # (Manual) Monocytes # (Manual) Eosinophils # (Manual) D-Dimer ABG pH ABG pO2 111.2 H ABG HCO3 18.3 L ABG O2 Saturation ABG Base Excess -6.0 L ABG Hemoglobin 9.3 L Oxyhemoglobin Sodium Potassium Chloride Carbon Dioxide BUN Creatinine Glucose POC Glucose 312 H 411 H Hemoglobin A1c Lactic Acid Calcium Phosphorus Ferritin AST ALT Alkaline Phosphatase Lactate Dehydrogenase C-Reactive Protein NT-Pro-B Natriuret Pep Albumin Salicylates Acetaminophen Crossmatch 05/28/19 05/28/19 05/28/19 04:03 05:49 11:57 WBC RBC Hgb Hct MCH RDW Lymph % (Auto) Lymph # Seg Neutrophils % Seg Neuts % (Manual) Lymphocytes % (Manual) Seg Neutrophils # Seg Neutrophils # Man Lymphocytes # (Manual) Monocytes # (Manual) Eosinophils # (Manual) D-Dimer ABG pH 7.310 L ABG pO2 70.0 L ABG HCO3 18.3 L ABG O2 Saturation 92.6 L ABG Base Excess -7.3 L ABG Hemoglobin 8.0 L Oxyhemoglobin 90.8 L Sodium Potassium Chloride Carbon Dioxide BUN Creatinine Glucose POC Glucose 362 H 347 H Hemoglobin A1c Lactic Acid Calcium Phosphorus Ferritin AST ALT Alkaline Phosphatase Lactate Dehydrogenase C-Reactive Protein NT-Pro-B Natriuret Pep Albumin Salicylates Acetaminophen Crossmatch 05/28/19 05/28/19 05/28/19 13:58 14:48 18:05 WBC 15.1 H RBC 3.10 L Hgb 8.6 L Hct 25.8 L MCH RDW 15.4 H Lymph % (Auto) Lymph # Seg Neutrophils % Seg Neuts % (Manual) 85.0 H Lymphocytes % (Manual) 5.0 L Seg Neutrophils # Seg Neutrophils # Man 12.8 H Lymphocytes # (Manual) 0.8 L Monocytes # (Manual) 0.9 H Eosinophils # (Manual) 0.6 H D-Dimer ABG pH ABG pO2 ABG HCO3 ABG O2 Saturation ABG Base Excess ABG Hemoglobin Oxyhemoglobin Sodium 135 L Potassium Chloride 90.5 L Carbon Dioxide 13 L BUN 117 H Creatinine 8.9 H Glucose 479 H POC Glucose 434 H Hemoglobin A1c Lactic Acid Calcium Phosphorus Ferritin AST ALT Alkaline Phosphatase Lactate Dehydrogenase C-Reactive Protein NT-Pro-B Natriuret Pep Albumin Salicylates Acetaminophen Crossmatch 04/12/20 04/13/20 04/13/20 23:56 02:19 04:13 WBC RBC Hgb Hct MCH RDW Lymph % (Auto) Lymph # Seg Neutrophils % Seg Neuts % (Manual) Lymphocytes % (Manual) Seg Neutrophils # Seg Neutrophils # Man Lymphocytes # (Manual) Monocytes # (Manual) Eosinophils # (Manual) D-Dimer 6984 H ABG pH 7.24 L ABG pO2 69.0 L ABG HCO3 16.8 L ABG O2 Saturation 91 L ABG Base Excess -9.9 L ABG Hemoglobin Oxyhemoglobin Sodium Potassium Chloride Carbon Dioxide BUN Creatinine Glucose POC Glucose 492 H Hemoglobin A1c Lactic Acid Calcium Phosphorus Ferritin AST ALT Alkaline Phosphatase Lactate Dehydrogenase C-Reactive Protein NT-Pro-B Natriuret Pep Albumin Salicylates Acetaminophen Crossmatch 05/29/19 05/29/19 05/29/19 04:13 04:13 05:26 WBC RBC Hgb Hct MCH RDW Lymph % (Auto) Lymph # Seg Neutrophils % Seg Neuts % (Manual) Lymphocytes % (Manual) Seg Neutrophils # Seg Neutrophils # Man Lymphocytes # (Manual) Monocytes # (Manual) Eosinophils # (Manual) D-Dimer ABG pH ABG pO2 ABG HCO3 ABG O2 Saturation ABG Base Excess ABG Hemoglobin Oxyhemoglobin Sodium Potassium Chloride Carbon Dioxide BUN Creatinine Glucose POC Glucose 457 H Hemoglobin A1c Lactic Acid Calcium Phosphorus Ferritin 1723.0 H AST ALT Alkaline Phosphatase Lactate Dehydrogenase C-Reactive Protein 22.80 H NT-Pro-B Natriuret Pep Albumin Salicylates Acetaminophen Crossmatch 05/29/19 05/29/19 12:19 12:21 WBC RBC Hgb Hct MCH RDW Lymph % (Auto) Lymph # Seg Neutrophils % Seg Neuts % (Manual) Lymphocytes % (Manual) Seg Neutrophils # Seg Neutrophils # Man Lymphocytes # (Manual) Monocytes # (Manual) Eosinophils # (Manual) D-Dimer ABG pH ABG pO2 ABG HCO3 ABG O2 Saturation ABG Base Excess ABG Hemoglobin Oxyhemoglobin Sodium Potassium Chloride Carbon Dioxide BUN Creatinine Glucose POC Glucose 423 H 432 H Hemoglobin A1c Lactic Acid Calcium Phosphorus Ferritin AST ALT Alkaline Phosphatase Lactate Dehydrogenase C-Reactive Protein NT-Pro-B Natriuret Pep Albumin Salicylates Acetaminophen Crossmatch Chest x-ray: other (none today) Allied health notes reviewed: nursing
--- NOTE | 2019-05-29 17:26 | Progress Note ---
Assessment and Plan - Patient Problems (1) CKD (chronic kidney disease) stage 5, GFR less than 15 ml/min Current Visit: No Status: Resolved Plan to address problem: stage V chronic kidney disease started on dialysis during this admission. Patient was not tolerating dialysis late last week due to hypotension. We will attempt dialysis again today. Continue to monitor volume status closely (2) Acute respiratory failure Current Visit: Yes Status: Acute Qualifiers: Respiratory failure complication: hypoxia Qualified Code(s): J96.01 - Acute respiratory failure with hypoxia Plan to address problem: continue respiratory management per pulmonary (3) Altered mental status Current Visit: Yes Status: Acute Plan to address problem: toxic/metabolic encephalopathy. Continue management and follow-up (4) Pneumonia due to COVID-19 virus Current Visit: Yes Status: Acute Plan to address problem: continue treatment per infectious disease (5) Hypertensive chronic kidney disease with stage 5 chronic kidney disease or end stage renal disease Current Visit: Yes Status: Chronic Plan to address problem: follow-up blood pressure (6) Type 2 diabetes mellitus with diabetic chronic kidney disease Current Visit: Yes Status: Chronic Plan to address problem: blood sugar is uncontrolled. Blood sugar management by primary attending (7) Metabolic acidosis Current Visit: Yes Status: Acute Plan to address problem: improved with dialysis (8) Sepsis with hypotension Current Visit: Yes Status: Acute Plan to address problem: wean vasopressor to mean arterial pressure more than 65. Subjective Date of service: 05/29/19 Principal diagnosis: Ac hypoxemic resp failure; Hakeem pneumonia; Sepsis; COVID-19 infection; ESRD Interval history: Patient seen lying in bed. Intubated on ventilator. Not Following commands. No interaction PUI?: Yes COVID19: Positive Objective - Exam Narrative Exam: middle-aged female lying in bed intubated on ventilator HEENT: Face swollen Neck: Supple, no venous distention, no goiter CVS: S1S2 RRR No murmur, rub or gallop Lungs: Coarse breath sounds with rhonchi, Abdomen: Full, soft, nontender, no organomegaly no bruit, bowel sounds are present Extremities: Mild edema, no cyanosis or clubbing Urinary: Deferred Musculo-skeletal: No joint deformities or swelling Neuro: Intubated on Vent - Vital Signs Vital signs: Vital Signs - 12hr 05/29/19 05/29/19 05/29/19 05:31 05:45 06:00 Temperature Pulse Rate 79 77 76 Pulse Rate [ From Monitor] Respiratory 22 22 24 Rate Blood Pressure 118/55 118/55 149/55 O2 Sat by Pulse 96 96 96 Oximetry O2 Sat by Pulse Oximetry [ Anterior Throughout] 05/29/19 05/29/19 05/29/19 06:15 06:30 06:45 Temperature Pulse Rate 75 76 75 Pulse Rate [ From Monitor] Respiratory 22 25 H 25 H Rate Blood Pressure 130/51 133/55 119/50 O2 Sat by Pulse 94 97 96 Oximetry O2 Sat by Pulse Oximetry [ Anterior Throughout] 05/29/19 05/29/19 05/29/19 07:00 07:15 07:30 Temperature Pulse Rate 75 75 75 Pulse Rate [ From Monitor] Respiratory 25 H 25 H 25 H Rate Blood Pressure 121/52 114/54 123/52 O2 Sat by Pulse 95 97 97 Oximetry O2 Sat by Pulse Oximetry [ Anterior Throughout] 05/29/19 05/29/19 05/29/19 07:45 08:00 08:15 Temperature 97.6 F Pulse Rate 76 76 76 Pulse Rate [ 76 From Monitor] Respiratory 22 25 H 25 H Rate Blood Pressure 123/51 111/53 122/51 O2 Sat by Pulse 94 94 96 Oximetry O2 Sat by Pulse Oximetry [ Anterior Throughout] 05/29/19 05/29/19 05/29/19 08:25 08:30 08:45 Temperature Pulse Rate 77 76 81 Pulse Rate [ From Monitor] Respiratory 50 H 24 Rate Blood Pressure 111/53 135/53 135/53 O2 Sat by Pulse 97 95 96 Oximetry O2 Sat by Pulse Oximetry [ Anterior Throughout] 05/29/19 05/29/19 05/29/19 09:00 09:15 09:30 Temperature Pulse Rate 83 74 76 Pulse Rate [ From Monitor] Respiratory 25 H 25 H 26 H Rate Blood Pressure 170/59 77/38 92/46 O2 Sat by Pulse 91 93 95 Oximetry O2 Sat by Pulse Oximetry [ Anterior Throughout] 05/29/19 05/29/19 05/29/19 09:45 10:00 10:15 Temperature Pulse Rate 77 75 75 Pulse Rate [ From Monitor] Respiratory 25 H 25 H 24 Rate Blood Pressure 94/44 89/47 92/46 O2 Sat by Pulse 94 95 96 Oximetry O2 Sat by Pulse Oximetry [ Anterior Throughout] 05/29/19 05/29/1905/28/20 10:30 10:45 11:00 Temperature Pulse Rate 76 74 77 Pulse Rate [ From Monitor] Respiratory 25 H 25 H 26 H Rate Blood Pressure 96/43 88/42 117/49 O2 Sat by Pulse 93 93 93 Oximetry O2 Sat by Pulse Oximetry [ Anterior Throughout] 05/29/19 05/29/19 05/29/19 11:15 11:30 11:45 Temperature Pulse Rate 77 76 77 Pulse Rate [ From Monitor] Respiratory 24 24 26 H Rate Blood Pressure 117/49 115/51 127/53 O2 Sat by Pulse 93 94 94 Oximetry O2 Sat by Pulse Oximetry [ Anterior Throughout] 05/29/19 05/29/19 05/29/19 12:00 12:15 12:30 Temperature 97.9 F Pulse Rate 78 78 76 Pulse Rate [ 77 From Monitor] Respiratory 23 25 H 24 Rate Blood Pressure 131/53 121/54 113/50 O2 Sat by Pulse 93 93 93 Oximetry O2 Sat by Pulse Oximetry [ Anterior Throughout] 05/29/19 05/29/19 05/29/19 12:31 12:45 13:00 Temperature Pulse Rate 76 78 76 Pulse Rate [ From Monitor] Respiratory 23 25 H Rate Blood Pressure 92/46 120/51 116/51 O2 Sat by Pulse 95 93 93 Oximetry O2 Sat by Pulse Oximetry [ Anterior Throughout] 05/29/19 05/29/19 05/29/19 13:15 13:30 13:45 Temperature Pulse Rate 77 76 76 Pulse Rate [ From Monitor] Respiratory 22 24 22 Rate Blood Pressure 115/48 114/49 110/50 O2 Sat by Pulse 93 94 95 Oximetry O2 Sat by Pulse Oximetry [ Anterior Throughout] 05/29/19 05/29/19 05/29/19 14:00 14:15 14:30 Temperature Pulse Rate 77 77 77 Pulse Rate [ From Monitor] Respiratory 22 25 H 24 Rate Blood Pressure 110/48 101/46 104/49 O2 Sat by Pulse 93 94 95 Oximetry O2 Sat by Pulse Oximetry [ Anterior Throughout] 05/29/19 05/29/19 05/29/19 14:45 15:00 15:15 Temperature Pulse Rate 81 79 77 Pulse Rate [ From Monitor] Respiratory 25 H 24 25 H Rate Blood Pressure 103/50 95/44 97/52 O2 Sat by Pulse 93 93 95 Oximetry O2 Sat by Pulse Oximetry [ Anterior Throughout] 05/29/19 05/29/19 05/29/19 15:30 15:45 16:00 Temperature 96.8 F L Pulse Rate 79 75 83 Pulse Rate [ 77 From Monitor] Respiratory 25 H 24 25 H Rate Blood Pressure 102/47 90/42 117/49 O2 Sat by Pulse 93 93 93 Oximetry O2 Sat by Pulse 91 Oximetry [ Anterior Throughout] 05/29/19 05/29/19 05/29/19 16:15 16:30 16:45 Temperature Pulse Rate 80 82 85 Pulse Rate [ From Monitor] Respiratory 24 25 H 25 H Rate Blood Pressure 101/48 91/46 81/42 O2 Sat by Pulse 91 91 91 Oximetry O2 Sat by Pulse Oximetry [ Anterior Throughout] 05/29/19 17:00 Temperature Pulse Rate 90 Pulse Rate [ From Monitor] Respiratory 24 Rate Blood Pressure 107/54 O2 Sat by Pulse 91 Oximetry O2 Sat by Pulse Oximetry [ Anterior Throughout] - Lab 05/28/19 14:48 05/28/19 13:58 Most recent lab results ABG pH 7.24 pH Units (7.350-7.450) L 05/29/19 02:19 ABG pCO2 40.0 mm Hg 05/29/19 02:19 ABG pO2 69.0 mm Hg (80.0-90.0) L 05/29/19 02:19 ABG HCO3 16.8 mmol/L (20.0-26.0) L 05/29/19 02:19 ABG O2 Saturation 91 % (95.0-99.0) L 05/29/19 02:19 Calcium 8.8 mg/dL (8.4-10.2) 05/28/19 13:58 Phosphorus 6.50 mg/dL (2.5-4.5) H 05/27/19 08:59 Magnesium 1.90 mg/dL (1.7-2.3) 05/27/19 08:59 Medications & Allergies - Medications Allergies/Adverse Reactions: Allergies No Known Allergies Allergy (Unverified 05/10/19 15:33) Home Medications: Home Medications Medication Instructions Recorded Confirmed Last Taken Type Aspirin [Adult Aspirin] 81 mg PO DAILY 05/10/19 05/20/19 05/11/19 History Cyanocobalamin (Vitamin B-12) 2,500 mcg PO DAILY 03/05/20/19 05/11/19 History [Vitamin B12] Ferrous Sulfate [Feosol 325 MG tab] 325 mg PO DAILY 05/10/19 05/20/19 05/11/19 History Gabapentin 100 mg PO TID 05/10/19 05/20/19 05/11/19 History Insulin Aspart (Nf) [NovoLOG 100 10 unit SQ TIDAC 05/10/19 05/20/19 05/11/19 History UNITS/ML VIAL] Insulin Glargine [Lantus VIAL] 36 unit SQ QAM 05/10/19 05/20/19 05/11/19 History Tizanidine HCl [Tizanidine 2mg tab] 2 mg PO DAILY 05/10/19 05/20/19 05/11/19 History Torsemide [Demadex] 20 mg PO BID 05/10/19 05/20/19 05/11/19 History amLODIPine 10 mg PO BID 05/10/19 05/20/19 05/12/19 04:30 History calcitrioL [Rocaltrol] 0.5 mcg PO DAILY 05/10/19 05/20/19 05/11/19 History carvediloL [Coreg] 12.5 mg PO BID 05/10/19 05/20/19 05/12/19 04:30 History oxyCODONE /ACETAMINOPHEN [Percocet 1 tab PO Q6HR PRN #24 tablet 05/12/19 Unknown Rx 5/325 mg] Active Medications: Generic Name Dose Route Start Last Admin Trade Name Freq PRN Reason Stop Dose Admin Acetaminophen 650 mg 05/15/19 23:04 05/21/19 16:17 Tylenol PO 650 mg Q4H PRN Administration Pain MILD(1-3)/Fever >100.5/MELVIN Acetaminophen 650 mg 05/16/19 01:28 05/16/19 01:44 Tylenol VT 650 mg Q6H PRN Administration TEMP > 100.3 Amiodarone HCl 200 mg 05/27/19 14:00 05/29/19 09:11 Cordarone FEEDTUBE 200 mg BID LUIS M Administration Lipase/Protease/Amylase 1 each 05/16/19 11:14 Pancreamanda Gillespie 10,500 Unit FEEDTUBE PRN PRN For Clogged Feeding Tube Dextrose 25 ml 05/25/19 13:00 05/25/19 12:20 D50w (25gm) Syringe IV 25 ml Q30MIN PRN Administration BLOOD GLUCOSE </=80 Famotidine 20 mg 05/18/19 10:00 05/29/19 09:11 Pepcid PO 20 mg DAILY LUIS M Administration Heparin Sodium (Porcine) 5,000 unit 05/24/19 22:00 05/29/19 09:12 Heparin SUB-Q 5,000 unit Q12HR LUIS M Administration Hydromorphone HCl 0.25 mg 05/15/19 23:04 05/25/19 12:22 Dilaudid IV 0.25 mg Q3H PRN Administration Pain, Moderate (4-6) Hydrophilic Ointment 1 applic 05/15/19 09:48 Vaseline Lip Therapy TP Q2HR PRN Dry Lips Propofol 1,000 mg in 100 mls @ 2.585 mls/hr 05/15/19 11:00 05/29/19 14:30 Diprivan 10 Mg/Ml IV 30 mcg/kg/min TITR LUIS M 15.513 mls/hr Administration Protocol 5 MCG/KG/MIN Norepinephrine 4 mg in 250 mls @ 18.75 mls/hr 05/21/19 23:45 05/29/19 16:30 Levophed Drip 4 Mg/Ns 250 Ml IV Infused TITR LUIS M Titration Protocol 5 MCG/MIN Sodium Chloride 100 mls @ 999 mls/hr 05/26/19 09:30 Nacl 0.9% IV COBY PRN Hypotension Vasopressin 20 unit/ Sodium 101 mls @ 9.09 mls/hr 05/27/19 15:14 Chloride IV TITR LUIS M 0.03 UNITS/MIN Cefepime HCl 1 gm in 100 mls @ 200 mls/hr 05/29/19 18:00 Cefepime/Ns 1 Gm/100 Ml IV QPM LUIS M Insulin Human Isoph/Insulin Regular 10 unit 05/29/19 17:00 Humulin 70/30 SUB-Q BIDDIAB LUIS M Insulin Human Lispro 0 unit 05/16/19 00:00 05/29/19 12:47 Humalog SUB-Q 10 unit Q6HR LUIS M Administration Protocol Metoclopramide HCl 5 mg 05/15/19 23:24 Reglan IV Q6H PRN Nausea And Vomiting Metoclopramide HCl 5 mg 05/25/19 14:00 05/29/19 14:31 Reglan IV 5 mg Q8HR LUIS M Administration Multi-Ingred Cream/Lotion/Oil/Oint 1 applic 05/15/19 09:48 05/25/19 18:29 Artificial Tears Ophth Oint OU 1 applic Q4HR PRN Administration Dry Eye(s) Ondansetron HCl 4 mg 05/15/19 23:04 05/19/19 18:30 Zofran IV 4 mg Q8H PRN Administration Nausea And Vomiting Simple Syrup 15 ml 05/16/19 11:14 Simple Syrup FEEDTUBE PRN PRN Hypoglycemia Simple Syrup 30 ml 05/16/19 11:14 Simple Syrup FEEDTUBE PRN PRN Hypoglycemia Sodium Bicarbonate 325 mg 05/16/19 11:14 Sodium Bicarbonate FEEDTUBE PRN PRN For Clogged Feeding Tube Sodium Bicarbonate 650 mg 05/21/19 15:00 05/29/19 14:31 Sodium Bicarbonate PO 650 mg TID LUIS M Administration Sodium Chloride 10 ml 05/16/19 10:00 05/29/19 09:13 Sodium Chloride Flush Syringe 10 Ml IV 10 ml BID LUIS M Administration Sodium Chloride 10 ml 05/15/19 23:04 Sodium Chloride Flush Syringe 10 Ml IV PRN PRN LINE FLUSH
[2019-05-29] MEDS ORDERED: CEFEPIME/NS 1 GM/100 ML 1 GM/100 ML BAG IV SCH (18:00)
[2019-05-29] MEDS: INSULIN NPH/REGULAR 70/30 INJ SUB-Q SCH (18:20)
[2019-05-29] MEDS ORDERED: ALBUMIN HUMAN 25% (25 GM/100 ML) INJ IV ONE (23:13)
[2019-05-30] MEDS: NORepinephrine/NS 4 MG-250 ML 4 MG/250 ML BAG IV SCH ×3 (00:30→10:17)
[2019-05-30] MEDS: INSULIN LISPRO 100 UNIT/ML SUB-Q SCH ×2 (00:33→05:44)
[2019-05-30] MEDS ORDERED: EPINEPHrine 1:10,000 1 MG/10 ML SYRINGE ONE (02:13)
[2019-05-30 05:22] LABS: ABG Base Excess -8.6 mmol/L (-2.0-3.0); ABG HCO3 17.4 mmol/L (20.0-26.0); ABG Methemoglobin 0.5 % (0.0-1.5); ABG Oxygen Saturation 87.2 % (95.0-99.0); ABG PCO2 38.4 mm Hg; ABG PH 7.274 pH Units (7.350-7.450); ABG PO2 52.7 mm Hg (80.0-90.0)
[2019-05-30 05:31] LABS: Hematocrit 23.8 % (30.3-42.9); Mean Corpuscular HGB Conc 34 % (30-34); Mean Corpuscular Volume 82 fl (79-97); Platelet Count 243 K/mm3 (140-440); Red Blood Count 2.92 M/mm3 (3.65-5.03); Red Cell Distribution Width 15.3 % (13.2-15.2)
[2019-05-30] MEDS: METOCLOPRAMIDE 10 MG/2 ML INJ IV SCH (05:41)
[2019-05-30 05:52] LABS: Calcium 8.6 mg/dL (8.4-10.2)
[2019-05-30] MEDS: INSULIN NPH/REGULAR 70/30 INJ SUB-Q SCH (07:41)
[2019-05-30] MEDS: SODIUM BICARBONATE 650 MG TAB PO SCH (07:41)
[2019-05-30] MEDS: AMIODARONE 200 MG TAB FEEDTUBE SCH (09:45)
[2019-05-30] MEDS: FAMOTIDINE 20 MG TAB PO SCH (09:46)
[2019-05-30] MEDS: HEPARIN 5,000 UNIT/1 ML VIAL SUB-Q SCH (09:46)
[2019-05-30] MEDS ORDERED: DOPamine/D5W 800 MG/250 ML 800 MG/250 ML BAG IV SCH (10:00)
[2019-05-30] MEDS ORDERED: NORepinephrine 8 MG in SODIUM CHLORIDE 0.9% 250ML 242 ML IV SCH (11:00)
--- NOTE | 2019-05-30 11:39 | Progress Note ---
Assessment and Plan Assessment and plan: --Covid-19 confirmed Covid19 paperwork completed by ED F/U ferritin, LDH, D-Dimer and CRP --Acute hypoxic respiratory failure; requiring intubation On ventilatory support, nebulizers Supportive care, pulmonary critical following Wean as tolerated per pulm --Bilateral patchy groundglass opacities/pneumonia Isolation precautions, cultures ID following --Acute metabolic encephalopathy; Present on admission, probably secondary to hypoxemia --Infected AV graft for dialysis; IV antibiotics, vascular,ID following --End-stage renal disease on hemodialysis; HD per schedulen nephrology following --Type 2 diabetes mellitus; moderate control Accu-Chek sliding scale coverage ADA diet and insulin as needed HbA1c 7.7 --Moderate malnutrition/hypoalbuminemia Due to underlying disease process, nutrition supplements Nutrition consult as needed --Lactic acidosis; rule out infections Supportive care --DVT prophylaxis; Lovenox --Obesity BMI 31.6; Patient needs weight reduction when medically stable --Full CODE STATUS; Monitor closely and adjust management as needed Very poor prognosis Plan of care reviewed with the patient's nurse 05/18/2019 Covid-19 confirmed Patient currently with AC mode, rate20, tidal volume 450, FiO2 50% and PEEP 6. Continue hydroxychloroquine 400 mg p.o. twPatient is critically ill with poor prognosis. Wean as tolerated per pulmonarice daily x1 day then 200 mg p.o. x 4 twice daily for 5 days. Continue cefepime per ID. Follow-up inflammatory markers of ferritin, LDH, d-dimer and CRP. 05/19/19 Patient currently with AC mode, rate20, tidal volume 450, FiO2 50% and PEEP 6. Patient is critically ill with poor prognosis. Continue Plaquenil 200 mg p.o. x 4 twice daily for 5 days. Continue cefepime per ID. Follow-up inflammatory markers of ferritin, LDH, d-dimer and CRP. Discussed confirmed positive test with daughter 05/20/2019. Continue Plaquenil taper per ID recommendations. Continue mechanical ventilation with AC mode, rate 14, tidal volume 450 and PEEP 6. Follow-up inflammatory markers of ferritin, LDH, d-dimer and CRP. 05/21/2019. Patient remains critically ill on mechanical ventilation AC mode with rate 14, tidal volume 450, FiO2 40% and PEEP of 6. Patient has strep pneumonia in sputum and likely has bacterial pneumonia exacerbated with COVID-19. Ferritin and LDH elevated but d-dimer decreased. Follow-up repeat chest x-ray. Continue antibiotics per IDceftriaxone. Continue Plaquenil/zinc. Continue COVID isolation precautions. Follow-up inflammatory markers. Patient with poor prognosis and high risk mortality. 05/22/2019. Patient remains critically ill on mechanical ventilation AC mode with rate 25, tidal volume 450, FiO2 65% and PEEP of 8. Patient has strep pneumonia in sputum and likely has bacterial pneumonia exacerbated with COVID-19. Ferritin and LDH elevated but d-dimer decreased. Follow-up repeat chest x-ray. Continue antibiotics per IDceftriaxone. Continue Plaquenil/zinc. Continue COVID isolation precautions. Follow-up inflammatory markers. Continue hemodialysis per nephrology and evaluate on a daily basis. Patient with poor prognosis and high risk mortality. 05/23/2019 patient with covid-19 infection. She is critically ill, still intubated on vent. 05/24/2019 patient hgb 5.9. Transfuse 2 Units PRBC. I discussed this with Nurse. She is still critically ill, intubated 05/25/2019 patient transfused 2 units PRBC, hgb now 9.8. Off levophed. 05/26/19 Patient still critically ill, still intubated, on vent, Continue Levophed. 05/27/19 patient had SVT yesterday in evening, treated with Adenosine iv. 05/28/19 patient had episodes of SVT yesterday, resolved. started on Amiodarone on recommendation from cardiology. 05/29/19 patient had SVT on 05/25 and 05/26, treated with adenosine and now started on amiodarone. Still intubated on vent. 05/30/2019. Patient with CODE BLUE from asystole. ACLS protocol was followed. I had a discussion with the daughter, Yesenia who opted for DNR and deceleration of care. Primary nurse Og witnessed the decisions. Deceleration of care initiated. The high probability of a clinically significant, sudden or life threatening deterioration of the [immunologic and respiratory] system(s) required my full a nd direct attention, intervention and personal management. The aggregate critical care time was [50] minutes. This time is in addition to time spent performing reported procedures but includes the following: [x] Data Review and interpretation [x] Patient assessment and monitoring of vital signs [x] Documentation [x] Medication orders and management History Interval history: 63 y/o female with history of ESRD s/p AV graft placement 3 days before admi ssion, admitted on 05/15/2019 for fever and drainage from the left upper extremity graft site as well as cough with whezzing and fever 102. The patient was intubated and remains on mechanical ventilation. Patient was noted to have CODE BLUE this morning. ACLS protocol was followed. I had a discussion with the daughter who opted for DNR and deceleration of care. PUI?: Yes COVID19: Positive Hospitalist Physical - Constitutional Vitals: Temp Pulse Resp BP Pulse Ox 99.2 F 86 30 H 79/41 86 05/30/19 08:00 05/30/19 10:15 05/30/19 10:15 05/30/19 10:15 05/30/19 10:15 General appearance: Present: other (Currently on a ventilator and sedated) - EENT Eyes: Present: PERRL, EOM intact ENT: hearing intact, clear oral mucosa, dentition normal - Neck Neck: Present: supple, normal ROM - Respiratory Respiratory effort: normal Respiratory: bilateral: diminished, rhonchi - Cardiovascular Rhythm: regular Heart Sounds: Present: S1 & S2. Absent: gallop, rub - Extremities Extremities: no ischemia, No edema, Full ROM - Abdominal General gastrointestinal: soft, non-tender, non-distended, normal bowel sounds - Integumentary Integumentary: Present: clear, warm, dry - Neurologic Neurologic: CNII-XII intact, moves all extremities Results - Labs CBC & Chem 7: 05/30/19 04:36 05/30/19 04:36 Labs: Laboratory Last Values WBC 13.4 K/mm3 (4.5-11.0) H 05/30/19 04:36 RBC 2.92 M/mm3 (3.65-5.03) L 05/30/19 04:36 Hgb 8.0 gm/dl (10.1-14.3) L 05/30/19 04:36 Hct 23.8 % (30.3-42.9) L 05/30/19 04:36 MCV 82 fl (79-97) 05/30/19 04:36 MCH 27 pg (28-32) L 05/30/19 04:36 MCHC 34 % (30-34) 05/30/19 04:36 RDW 15.3 % (13.2-15.2) H 05/30/19 04:36 Plt Count 243 K/mm3 (140-440) 05/30/19 04:36 Lymph % (Auto) Litigation Examiner 05/28/19 14:48 Esmeralda % (Auto) Litigation Examiner 05/28/19 14:48 Eos % (Auto) Litigation Examiner 05/28/19 14:48 Baso % (Auto) Litigation Examiner 05/28/19 14:48 Lymph # Litigation Examiner 05/28/19 14:48 Esmeralda # Litigation Examiner 05/28/19 14:48 Eos # Litigation Examiner 05/28/19 14:48 Baso # Litigation Examiner 05/28/19 14:48 Add Manual Diff Complete 05/28/19 14:48 Total Counted 100 05/28/19 14:48 Seg Neutrophils % Litigation Examiner 05/28/19 14:48 Seg Neuts % (Manual) 85.0 % (40.0-70.0) H 05/28/19 14:48 Band Neutrophils % 0 % 05/28/19 14:48 Lymphocytes % (Manual) 5.0 % (13.4-35.0) L 05/28/19 14:48 Reactive Lymphs % (Man) 0 % 05/28/19 14:48 Monocytes % (Manual) 6.0 % (0.0-7.3) 05/28/19 14:48 Eosinophils % (Manual) 4.0 % (0.0-4.3) 05/28/19 14:48 Basophils % (Manual) 0 % (0.0-1.8) 05/28/19 14:48 Metamyelocytes % 0 % 05/28/19 14:48 Myelocytes % 0 % 05/28/19 14:48 Promyelocytes % 0 % 05/28/19 14:48 Blast Cells % 0 % 05/28/19 14:48 Nucleated RBC % Not Reportable 05/28/19 14:48 Seg Neutrophils # Litigation Examiner 05/28/19 14:48 Seg Neutrophils # Man 12.8 K/mm3 (1.8-7.7) H 05/28/19 14:48 Band Neutrophils # 0.0 K/mm3 05/28/19 14:48 Lymphocytes # (Manual) 0.8 K/mm3 (1.2-5.4) L 05/28/19 14:48 Abs React Lymphs (Man) 0.0 K/mm3 05/28/19 14:48 Monocytes # (Manual) 0.9 K/mm3 (0.0-0.8) H 05/28/19 14:48 Eosinophils # (Manual) 0.6 K/mm3 (0.0-0.4) H 05/28/19 14:48 Basophils # (Manual) 0.0 K/mm3 (0.0-0.1) 05/28/19 14:48 Metamyelocytes # 0.0 K/mm3 05/28/19 14:48 Myelocytes # 0.0 K/mm3 05/28/19 14:48 Promyelocytes # 0.0 K/mm3 05/28/19 14:48 Blast Cells # 0.0 K/mm3 05/28/19 14:48 WBC Morphology Not Reportable 05/28/19 14:48 Hypersegmented Neuts Not Reportable 05/28/19 14:48 Hyposegmented Neuts Not Reportable 05/28/19 14:48 Hypogranular Neuts Not Reportable 05/28/19 14:48 Smudge Cells Not Reportable 05/28/19 14:48 Toxic Granulation Not Reportable 05/28/19 14:48 Toxic Vacuolation Not Reportable 05/28/19 14:48 Dohle Bodies Not Reportable 05/28/19 14:48 Pelger-Huet Anomaly Not Reportable 05/28/19 14:48 [place] Rods Not Reportable 05/28/19 14:48 Platelet Estimate Not Reportable 05/28/19 14:48 Clumped Platelets Not Reportable 05/28/19 14:48 Plt Clumps, EDTA Not Reportable 05/28/19 14:48 Large Platelets Not Reportable 05/28/19 14:48 Giant Platelets Not Reportable 05/28/19 14:48 Platelet Satelliting Not Reportable 05/28/19 14:48 Plt Morphology Comment Not Reportable 05/28/19 14:48 RBC Morphology Normal 05/28/19 14:48 Dimorphic RBCs Not Reportable 05/28/19 14:48 Polychromasia Not Reportable 05/28/19 14:48 Hypochromasia Not Reportable 05/28/19 14:48 Poikilocytosis Not Reportable 05/28/19 14:48 Anisocytosis Not Reportable 05/28/19 14:48 Microcytosis Not Reportable 05/28/19 14:48 Macrocytosis Not Reportable 05/28/19 14:48 Spherocytes Not Reportable 05/28/19 14:48 Pappenheimer Bodies Not Reportable 05/28/19 14:48 Sickle Cells Not Reportable 05/28/19 14:48 Target Cells Not Reportable 05/28/19 14:48 Tear Drop Cells Not Reportable 05/28/19 14:48 Ovalocytes Not Reportable 05/28/19 14:48 Helmet Cells Not Reportable 05/28/19 14:48 [place] Bodies Not Reportable 05/28/19 14:48 [place] Rings Not Reportable 05/28/19 14:48 [place] Cells Not Reportable 05/28/19 14:48 Bite Cells Not Reportable 05/28/19 14:48 Crenated Cell Not Reportable 05/28/19 14:48 Elliptocytes Not Reportable 05/28/19 14:48 Acanthocytes (Spur) Not Reportable 05/28/19 14:48 Rouleaux Not Reportable 05/28/19 14:48 Hemoglobin C Crystals Not Reportable 05/28/19 14:48 Schistocytes Not Reportable 05/28/19 14:48 Malaria parasites Not Reportable 05/28/19 14:48 [place] Bodies Not Reportable 05/28/19 14:48 Hem Pathologist Commnt No 05/28/19 14:48 D-Dimer 6984 ng/mlDDU (0-234) H 05/29/19 04:13 Heparin Anti-Xa Level 0.54 U.I./ml (0.3-0.7) 05/24/19 08:45 ABG pH 7.274 pH Units (7.350-7.450) L 05/30/19 04:12 ABG pCO2 38.4 mm Hg 05/30/19 04:12 ABG pO2 52.7 mm Hg (80.0-90.0) L 05/30/19 04:12 ABG HCO3 17.4 mmol/L (20.0-26.0) L 05/30/19 04:12 ABG O2 Saturation 87.2 % (95.0-99.0) L 05/30/19 04:12 ABG O2 Content 6.3 (0.0-44) 05/30/19 04:12 ABG Base Excess -8.6 mmol/L (-2.0-3.0) L 05/30/19 04:12 ABG Hemoglobin 5.2 gm/dl (12.0-16.0) L 05/30/19 04:12 ABG Carboxyhemoglobin 1.8 % (0.0-5.0) 05/30/19 04:12 ABG Methemoglobin 0.5 % (0.0-1.5) 05/30/19 04:12 Oxyhemoglobin 85.2 % (95.0-99.0) L 05/30/19 04:12 FiO2 60 % 05/30/19 04:12 Sodium 139 mmol/L (137-145) 05/30/19 04:36 Potassium 3.9 mmol/L (3.6-5.0) 05/30/19 04:36 Chloride 96.7 mmol/L (98-107) L 05/30/19 04:36 Carbon Dioxide 13 mmol/L (22-30) L 05/30/19 04:36 Anion Gap 33 mmol/L 05/30/19 04:36 BUN 92 mg/dL (7-17) H 05/30/19 04:36 Creatinine 7.4 mg/dL (0.7-1.2) H 05/30/19 04:36 Estimated GFR 7 ml/min 05/30/19 04:36 BUN/Creatinine Ratio 12 % 05/30/19 04:36 Glucose 146 mg/dL (65-100) H 05/30/19 04:36 POC Glucose 140 (70-105) H 05/30/19 05:24 Hemoglobin A1c 7.7 % (4-6) H 05/15/19 Unknown Lactic Acid 1.40 mmol/L (0.7-2.0) 05/15/19 11:41 Calcium 8.6 mg/dL (8.4-10.2) 05/30/19 04:36 Phosphorus 6.50 mg/dL (2.5-4.5) H 05/27/19 08:59 Magnesium 1.90 mg/dL (1.7-2.3) 05/27/19 08:59 Ferritin 1723.0 ng/mL (13.0-400.0) H 05/29/19 04:13 Total Bilirubin 0.30 mg/dL (0.1-1.2) 05/25/19 04:01 AST 128 units/L (5-40) H 05/25/19 04:01 ALT 43 units/L (7-56) 05/25/19 04:01 Alkaline Phosphatase 142 units/L (35-129) H 05/25/19 04:01 Lactate Dehydrogenase 925 units/L (91-180) H 05/26/19 03:43 C-Reactive Protein 22.80 mg/dL (0.00-1.30) H 05/29/19 04:13 NT-Pro-B Natriuret Pep 7240 pg/mL (0-900) H 05/15/19 09:11 Total Protein 7.7 g/dL (6.3-8.2) 05/25/19 04:01 Albumin 2.9 g/dL (3.9-5) L 05/25/19 04:01 Albumin/Globulin Ratio 0.6 % 05/25/19 04:01 Procalcitonin 21.80 ng/mL (<0.15) 05/24/19 05:00 Urine Color Straw (Yellow) 05/15/19 12:07 Urine Turbidity Clear (Clear) 05/15/19 12:07 Urine pH 7.0 (5.0-7.0) 05/15/19 12:07 Ur Specific [place] 1.009 (1.003-1.030) 05/15/19 12:07 Urine Protein 100 mg/dl mg/dL (Negative) 05/15/19 12:07 Urine Glucose (UA) >=500 mg/dL (Negative) 05/15/19 12:07 Urine Ketones Neg mg/dL (Negative) 05/15/19 12:07 Urine Blood Sm (Negative) 05/15/19 12:07 Urine Nitrite Neg (Negative) 05/15/19 12:07 Urine Bilirubin Neg (Negative) 05/15/19 12:07 Urine Urobilinogen < 2.0 mg/dL (<2.0) 05/15/19 12:07 Ur Leukocyte Esterase Neg (Negative) 05/15/19 12:07 Urine WBC (Auto) 3.0 /HPF (0.0-6.0) 05/15/19 12:07 Urine RBC (Auto) 18.0 /HPF (0.0-6.0) 05/15/19 12:07 Urine Mucus Few /HPF 05/15/19 12:07 Random Vancomycin 34.0 ug/mL (0-40.0) 05/30/19 04:36 Salicylates < 0.3 mg/dL (2.8-20.0) L 05/15/19 13:10 Acetaminophen < 5.0 ug/mL (10.0-30.0) L 05/15/19 13:10 Hepatitis A IgM Ab Non-reactive (NonReactive) 05/22/19 10:50 Hep Bs Antigen Non-reactive (Negative) 05/22/19 10:50 Hep B Core IgM Ab Non-reactive (NonReactive) 05/22/19 10:50 Hepatitis C Antibody Non-reactive (NonReactive) 05/22/19 10:50 Miscellaneous Test See scanned result 05/16/19 Unknown Blood Type O POSITIVE 05/24/19 08:45 Antibody Screen Negative 05/24/19 08:45 Crossmatch See Detail 05/24/19 08:45 Microbiology: Microbiology 05/28/19 01:10 Peripheral/Venous Blood Culture - Preliminary NO GROWTH AFTER 48 HOURS 05/28/19 01:10 Peripheral/Venous Blood Fungal Culture - Preliminary Culture in Progress Castellanos/IV: Voiding Method Condom Catheter IV Catheter Type [Right VAS Cath Femoral] IV Catheter Type [Left INT / Saline Lock External Jugular] IV Catheter Type [Right Wrist] INT / Saline Lock IV Catheter Type [Right INT / Saline Lock External Jugular] Active Medications - Current Medications Current Medications: Generic Name Dose Route Start Last Admin Trade Name Freq PRN Reason Stop Dose Admin Acetaminophen 650 mg 05/15/19 23:04 05/21/19 16:17 Tylenol PO 650 mg Q4H PRN Administration Pain MILD(1-3)/Fever >100.5/MELVIN Acetaminophen 650 mg 05/16/19 01:28 05/16/19 01:44 Tylenol HI 650 mg Q6H PRN Administration TEMP > 100.3 Amiodarone HCl 200 mg 05/27/19 14:00 05/30/19 09:45 Cordarone FEEDTUBE Not Given BID LUIS M Lipase/Protease/Amylase 1 each 05/16/19 11:[address] 10,500 Unit FEEDTUBE PRN PRN For Clogged Feeding Tube Dextrose 25 ml 05/25/19 13:00 05/25/19 12:20 D50w (25gm) Syringe IV 25 ml Q30MIN PRN Administration BLOOD GLUCOSE </=80 Famotidine 20 mg 05/18/19 10:00 05/30/19 09:46 Pepcid PO Not Given DAILY [facility] Heparin Sodium (Porcine) 5,000 unit 05/24/19 22:00 05/30/19 09:46 Heparin SUB-Q Not Given Q12HR [facility] Hydromorphone HCl 0.25 mg 05/15/19 23:04 05/25/19 12:22 Dilaudid IV 0.25 mg Q3H PRN Administration Pain, Moderate (4-6) Hydrophilic Ointment 1 applic 05/15/19 09:48 Vaseline Lip Therapy TP Q2HR PRN Dry Lips Propofol 1,000 mg in 100 mls @ 2.585 mls/hr 05/15/19 11:00 05/30/19 03:49 Diprivan 10 Mg/Ml IV 0 mcg/kg/min TITR LUIS M 0 mls/hr Titration Protocol 5 MCG/KG/MIN Sodium Chloride 100 mls @ 999 mls/hr 05/26/19 09:30 Nacl 0.9% IV COBY PRN Hypotension Vasopressin 20 unit/ Sodium 101 mls @ 9.09 mls/hr 05/27/19 15:14 05/30/19 09:20 Chloride IV 0.03 units/min TITR LUIS M 9.09 mls/hr Administration 0.03 UNITS/MIN Cefepime HCl 1 gm in 100 mls @ 200 mls/hr 05/29/19 18:00 05/29/19 18:20 Cefepime/Ns 1 Gm/100 Ml IV 200 mls/hr QPM LUIS M Administration Dopamine HCl/Dextrose 800 mg in 250 mls @ 3.019 mls/hr 05/30/19 10:00 05/30/19 10:16 Intropin Drip 800 Mg/D5w 250 Ml IV 2 mcg/kg/min TITR LUIS M 3.019 mls/hr Administration Protocol 2 MCG/KG/MIN Norepinephrine 8 mg/ Sodium 250 mls @ 3.75 mls/hr 05/30/19 11:00 Chloride IV TITR LUIS M Protocol 2 MCG/MIN Insulin Human Isoph/Insulin Regular 10 unit 05/29/19 17:00 05/30/19 07:41 Humulin 70/30 SUB-Q 10 unit BIDDIAB LUIS M Administration Insulin Human Lispro 0 unit 05/16/19 00:00 05/30/19 05:44 Humalog SUB-Q Not Given Q6HR [facility] Protocol Metoclopramide HCl 5 mg 05/15/19 23:24 Reglan IV Q6H PRN Nausea And Vomiting Metoclopramide HCl 5 mg 05/25/19 14:00 05/30/19 05:41 Reglan IV 05/30/19 23:59 5 mg Q8HR LUIS M Administration Multi-Ingred Cream/Lotion/Oil/Oint 1 applic 05/15/19 09:48 05/25/19 18:29 Artificial Tears Ophth Oint OU 1 applic Q4HR PRN Administration Dry Eye(s) Ondansetron HCl 4 mg 05/15/19 23:04 05/19/19 18:30 Zofran IV 4 mg Q8H PRN Administration Nausea And Vomiting Simple Syrup 15 ml 05/16/19 11:14 Simple Syrup FEEDTUBE PRN PRN Hypoglycemia Simple Syrup 30 ml 05/16/19 11:14 Simple Syrup FEEDTUBE PRN PRN Hypoglycemia Sodium Bicarbonate 325 mg 05/16/19 11:14 Sodium Bicarbonate FEEDTUBE PRN PRN For Clogged Feeding Tube Sodium Bicarbonate 650 mg 05/21/19 15:00 05/30/19 07:41 Sodium Bicarbonate PO 650 mg TID LUIS M Administration Sodium Chloride 10 ml 05/16/19 10:00 05/30/19 09:59 Sodium Chloride Flush Syringe 10 Ml IV Not Given BID LUIS M Sodium Chloride 10 ml 05/15/19 23:04 Sodium Chloride Flush Syringe 10 Ml IV PRN PRN LINE FLUSH Nutrition/Malnutrition Assess - Dietary Evaluation Nutrition/Malnutrition Findings: Nutrition Notes Start: 05/16/19 08:31 Freq: Status: Active Protocol: Document 05/29/19 14:40 NALDO (Rec: 05/29/19 14:49 NALDO [email or web address] [email or web address]) Nutrition Notes Initial or Follow up Reassessment Current Diagnosis CKD (stage V CKD),Diabetes, Respiratory Failure Other Pertinent Diagnosis AV graft infection, bilat pneu , COVID-19 (+), metabolic encephalopathy Current Diet TF - Nepro at 45ml/hr Labs/Tests POC Glu 457 CRP 22.8 Pertinent Medications Reglan Height 5 ft 5 in Weight 80.5 kg [place] Body Weight (kg) 56.81 BMI 29.5 Subjective/Other Information RD spoke with pt's RN on the phone. Per RN, pt tolerating TF at goal rate. Pt remains on vent support. Pt with skin breakdown and excoriation per RN note last pm. Wound care consulted. Percent of energy/protein needs met: 100% energy 90% pro Burn Absent Trauma Absent #1 Nutrition Diagnosis Inadequate oral intake Diagnosis Progress(for reassessment Continues documentation) Is patient on ventilator? Yes Is Patient Ambulatory and/or Out of Bed No REE-(Robert-St. Jeor-confined to bed) 1638.132 Calculation Used for Recommendations Robert-St Jeor Additional Notes Pro needs >1.2g/kg: >97g/day Fluid needs 1-1.5L/day Nutrition Intervention Nutrition Support: Nepro 1.8 at 45ml/hr Flush 200 ml q4h Kcal 1,944 Protein (gm) 87 Fluid (mL) 785 Goal #1 TF tolerance Goal #2 Meet at least 75% of energy and protein needs via TF Follow-Up By: 06/05/19 Additional Comments F/U: stable TF, vent status, wt
--- NOTE | 2019-05-30 12:31 | Death Summary ---
Summary - Providers Date of service: 05/30/19 Consults: 05/15/19 12:24 Consult to Physician [CONS] Stat Comment: Dr. Dior notified @ 12:22- [facility] Consulting Provider: JO ANN DIOR Physician Instructions: Reason For Exam: Postoperative fever 3 days s/p LV graft insertion 05/15/19 12:58 Consult to Physician [CONS] Stat Comment: Dr. Caceres notified @ 12:55- [facility] Consulting Provider: IAN CACERES Physician Instructions: Reason For Exam: esrd pulmonary edema 05/15/19 23:04 Consult to Physician [CONS] Routine Comment: Consulting Provider: ANIBAL TIMMONS Physician Instructions: Reason For Exam: Acute respiratory failure 05/15/19 23:07 Consult to Dietitian/Nutrition [CONS] Routine Physician Instructions: Reason For Exam: Reason for Consult: Write/Manage Tube Feeding 05/16/19 08:50 Consult to Physician [CONS] Routine Comment: Consulting Provider: WILLIAM HO Physician Instructions: Reason For Exam: Fever/pneumonia/rule out Covid-19 05/28/19 20:20 Consult to Wound/ET Nurse [CONS] Stat Reason For Exam: wound eval Attending: SUMEET POPE - summary Date of admission: 05/15/19 13:51 Date of : 05/30/19 Reason for admission: PNA Disposition: 63 y/o female with history of ESRD s/p AV graft placement 3 days before admission, admitted on 05/15/2019 for fever and drainage from the left upper extremity graft site as well as cough with whezzing and fever 102. The patient was intubated and remains on mechanical ventilation. The patient was admitted with diagnosis of acute hypoxemic respiratory failure requiring mechanical ventilation, COVID-19 infection, bilateral pneumonia, toxic metabolic encephalopathy, infected AV graft, ESRD on hemodialysis, type 2 diabetes melli tus, moderate malnutrition/hypoalbuminemia, lactic acidosis and obesity. The patient was seen by nephrology, pulmonary, IR and infectious disease in consultation. 05/18/2019 Covid-19 confirmed Patient currently with AC mode, rate20, tidal volume 450, FiO2 50% and PEEP 6. Continue hydroxychloroquine 400 mg p.o. twPatient is critically ill with poor prognosis. Wean as tolerated per pulmonarice daily x1 day then 200 mg p.o. x 4 twice daily for 5 days. Continue cefepime per ID. Follow-up inflammatory markers of ferritin, LDH, d-dimer and CRP. 05/19/19 Patient currently with AC mode, rate20, tidal volume 450, FiO2 50% and PEEP 6. Patient is critically ill with poor prognosis. Continue Plaquenil 200 mg p.o. x 4 twice daily for 5 days. Continue cefepime per ID. Follow-up inflammatory markers of ferritin, LDH, d-dimer and CRP. Discussed confirmed positive test with daughter 05/20/2019. Continue Plaquenil taper per ID recommendations. Continue mechanical ventilation with AC mode, rate 14, tidal volume 450 and PEEP 6. Follow-up inflammatory markers of ferritin, LDH, d-dimer and CRP. 05/21/2019. Patient remains critically ill on mechanical ventilation AC mode with rate 14, tidal volume 450, FiO2 40% and PEEP of 6. Patient has strep pneumonia in sputum and likely has bacterial pneumonia exacerbated with COVID-19. Ferritin and LDH elevated but d-dimer decreased. Follow-up repeat chest x-ray. Continue antibiotics per IDceftriaxone. Continue Plaquenil/zinc. Continue COVID isolation precautions. Follow-up inflammatory markers. Patient with poor prognosis and high risk mortality. 05/22/2019. Patient remains critically ill on mechanical ventilation AC mode with rate 25, tidal volume 450, FiO2 65% and PEEP of 8. Patient has strep pneumonia in sputum and likely has bacterial pneumonia exacerbated with COVID-19. Ferritin and LDH elevated but d-dimer decreased. Follow-up repeat chest x-ray. Continue antibiotics per IDceftriaxone. Continue Plaquenil/zinc. Continue COVID isolation precautions. Follow-up inflammatory markers. Continue hemodialysis per nephrology and evaluate on a daily basis. Patient with poor prognosis and high risk mortality. 05/23/2019 patient with covid-19 infection. She is critically ill, still intubated on vent. 05/24/2019 patient hgb 5.9. Transfuse 2 Units PRBC. I discussed this with Nurse. She is still critically ill, intubated 05/25/2019 patient transfused 2 units PRBC, hgb now 9.8. Off levophed. 05/26/19 Patient still critically ill, still intubated, on vent, Continue Levophed. 05/27/19 patient had SVT yesterday in evening, treated with Adenosine iv. 05/28/19 patient had episodes of SVT yesterday, resolved. started on Amiodarone on recommendation from cardiology. 05/29/19 patient had SVT on 05/25 and 05/26, treated with adenosine and now started on amiodarone. Still intubated on vent. 05/30/2019. Patient with CODE BLUE from asystole. ACLS protocol was followed. I had a discussion with the daughter, Yesenia who opted for DNR and deceleration of care. Primary nurse Og witnessed the decisions. Deceleration of care initiated. Family opted for DNR and deceleration of care as noted. Patient became asystolic at 12 PM and was pronounced - Final diagnosis (1) Acute encephalopathy Note: Final diagnosis: (2) Acute respiratory failure Qualifiers: Respiratory failure complication: hypoxia Qualified Code(s): J96.01 - Acute respiratory failure with hypoxia Note: Final diagnosis: (3) Infection of AV graft for dialysis Note: Final diagnosis: (4) Metabolic acidosis Note: Final diagnosis: (5) Pneumonia due to COVID-19 virus Note: Final diagnosis: (6) Sepsis with hypotension Note: Final diagnosis: (7) Suspected COVID-19 virus infection Note: Final diagnosis: (8) End stage renal disease Note: Final diagnosis: (9) Hypertension Qualifiers: Hypertension type: essential hypertension Qualified Code(s): I10 - Essential (primary) hypertension Note: Final diagnosis: (10) T2DM (type 2 diabetes mellitus) Qualifiers: 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
[2019-05-30 12:47] VITALS: BP 75/23
== END 2019-05-30 14:00 | DRG 919 ==
LOC: ED 07:23 → CC1 13:51
PROVIDERS: ADMIT Internal Medicine; ATTEND Hospitalist
PROC: 4A033R1 Measurement of Arterial Saturation, Peripheral, Percutaneous Approach (ICD-10-PCS; 2019-05-15)
PROC: 5A1955Z Respiratory Ventilation, Greater than 96 Consecutive Hours (ICD-10-PCS; principal; 2019-05-19)
PROC: 0BH17EZ Insertion of Endotracheal Airway into Trachea, Via Natural or Artificial Opening (ICD-10-PCS; 2019-05-19)
PROC: 5A1D70Z Performance of Urinary Filtration, Intermittent, Less than 6 Hours Per Day (ICD-10-PCS; 2019-05-22)
PROC: 06HY33Z Insertion of Infusion Device into Lower Vein, Percutaneous Approach (ICD-10-PCS; 2019-05-22)
PROC: B54BZZA Ultrasonography of Right Lower Extremity Veins, Guidance (ICD-10-PCS; 2019-05-22)
PROC: 5A1D70Z Performance of Urinary Filtration, Intermittent, Less than 6 Hours Per Day (ICD-10-PCS; 2019-05-23)
PROC: 30233N1 Transfusion of Nonautologous Red Blood Cells into Peripheral Vein, Percutaneous Approach (ICD-10-PCS; 2019-05-24)
PROC: 5A1D70Z Performance of Urinary Filtration, Intermittent, Less than 6 Hours Per Day (ICD-10-PCS; 2019-05-24)
PROC: 5A1D70Z Performance of Urinary Filtration, Intermittent, Less than 6 Hours Per Day (ICD-10-PCS; 2019-05-26)
PROC: 5A1D70Z Performance of Urinary Filtration, Intermittent, Less than 6 Hours Per Day (ICD-10-PCS; 2019-05-29)
DX: T85.79XA Infection and inflammatory reaction due to other internal prosthetic devices, implants and grafts, initial encounter (principal); A41.89 Other specified sepsis; U07.1 COVID-19; J96.01 Acute respiratory failure with hypoxia; N18.6 End stage renal disease; J12.89 Other viral pneumonia; G92 Toxic encephalopathy; R65.20 Severe sepsis without septic shock; J81.1 Chronic pulmonary edema; E44.0 Moderate protein-calorie malnutrition; E87.2 Acidosis; I13.2 Hypertensive heart and chronic kidney disease with heart failure and with stage 5 chronic kidney disease, or end stage renal disease; J90 Pleural effusion, not elsewhere classified; E87.0 Hyperosmolality and hypernatremia; R50.82 Postprocedural fever; R41.82 Altered mental status, unspecified; E66.9 Obesity, unspecified; I95.9 Hypotension, unspecified; E11.22 Type 2 diabetes mellitus with diabetic chronic kidney disease; Z99.2 Dependence on renal dialysis; Z79.4 Long term (current) use of insulin; E88.09 Other disorders of plasma-protein metabolism, not elsewhere classified; Z68.31 Body mass index [BMI] 31.0-31.9, adult; E21.3 Hyperparathyroidism, unspecified; K21.9 Gastro-esophageal reflux disease without esophagitis; I50.9 Heart failure, unspecified; E11.40 Type 2 diabetes mellitus with diabetic neuropathy, unspecified; E11.21 Type 2 diabetes mellitus with diabetic nephropathy; E11.319 Type 2 diabetes mellitus with unspecified diabetic retinopathy without macular edema; Z79.899 Other long term (current) drug therapy; Z79.82 Long term (current) use of aspirin; Z82.49 Family history of ischemic heart disease and other diseases of the circulatory system; R13.12 Dysphagia, oropharyngeal phase; Y83.9 Surgical procedure, unspecified as the cause of abnormal reaction of the patient, or of later complication, without mention of misadventure at the time of the procedure; Y92.89 Other specified places as the place of occurrence of the external cause; D63.1 Anemia in chronic kidney disease
CPT/HCPCS: 36415; 36600; 70450; 71045; 71250; 74018; 74176; 80048; 80053; 80074; 80202; 80320; 81001; 82140; 82270; 82728; 82803; 82962; 83036; 83615; 83735; 83880; 84100; 84145; 85007; 85025; 85027; 85379; 85520; 86140; 86850; 86900; 86901; 86920; 87040; 87070; 87076; 87103; 87186; 87205; 87635; 93005; 93010; 93990; 94002; 94003; G0378; A4649; C1768; G0480; J0153; J0171; J0690; J0692; J0696; J1170; J1265; J1644; J1650; J1720; J1815; J1940; J2250; J2370; J2405; J2704; J2720; J2765; J3010; J3370; J7030; J7040; J7050; P9016; P9047